=== PATIENT | male | born 1965 | race Caucasian/White ===

== ENCOUNTER 2016-10-30 15:23 | Emergency (ER) | payer MEDICARE, OTHER ==
[2016-10-30] MEDS ORDERED: LORazepam 2 MG/ML SYRINGE IM STA (16:46)
--- NOTE | 2016-10-30 16:50 | ED ---
Anxiety HPI - General Chief Complaint: Anxiety Stated Complaint: anxiety Time Seen by Provider: 10/30/16 16:36 Source: patient Mode of arrival: EMS - History of Present Illness Initial Comments: This 51-year-old white male presents complaining of anxiety. He has a long- standing history of chronic anxiety. He states that it has been worse since this morning. He states that he previously was taking Xanax. He was seen at [facility] 2 weeks ago and was prescribed some Xanax. He ran out approximately 2 days ago. He states that he does not have a primary care physician or any physician that would prescribe him Xanax but plans to find a primary care physician. He states that he was on between 68 mg of Xanax per day previously. Old records do relate that he was in here for a polysubstance overdose previously of benzodiazepines as well as narcotics. Old records show that he was previously tested positive for amphetamines as well. He apparently was here several years ago for polysubstance overdose. He denies any other medical complaints or psychiatric complaints. - Related Data Home Medications: Home Medications Medication Instructions Recorded Confirmed Buprenorphine HCl [Subutex] 8 mg SL TID 10/30/16 10/30/16 Previous Rx's Medication Instructions Recorded Ibuprofen [Motrin] 600 mg PO Q6HR PRN #20 tab 04/04/16 Allergies/Adverse Reactions: Allergies Allergy/AdvReac Type Severity Reaction Status Date / Time Fish Containing Products Allergy Unknown Verified 10/30/16 16:28 [Fish] Review of Systems ROS Statement: Those systems with pertinent positive or pertinent negative responses have been documented in the HPI. ROS Other: All systems not noted in ROS Statement are negative. Past Medical History Past Medical History: COPD Additional Past Medical History / Comment(s): compartment syndrome to left lower leg, GI upset, COPD, NEUROPATHY. per old hx 2010- closed head injury 2007 , anxiety bipolar depression schitzophrenia, recent fall-scabbed area to forehead. History of Any Multi-Drug Resistant Organisms: MRSA Date of last positivie culture/infection: ?2010 h&p MDRO Source:: no source provided Past Surgical History: Back Surgery Additional Past Surgical History / Comment(s): Surgery on Left Lower Leg for Compartment Syndrome November 2010, lt leg debridment had non healing wound/wound vac 2010- per old 2010 hx mrsa listed but no date or source.sinus sx. Past Anesthesia/Blood Transfusion Reactions: No Reported Reaction Past Psychological History: ADD/ADHD, Anxiety, Bipolar, Depression, Schizophrenia Additional Psychological History / Comment(s): pt sent from [facility]- confusion, alt mental status, not acting right, poor historian at this time. Smoking Status: Current every day smoker Past Alcohol Use History: None Reported Additional Past Alcohol Use History / Comment(s): 2 ppd x 32 years Past Drug Use History: None Reported Additional Drug Use History / Comment(s): Percocet and Xanax also per old 2010 h&p used heroin, ecstacy, amphetamines, benzodiazepines - Past Family History Father Family Medical History: Myocardial Infarction ([place]) Additional Family Medical History / Comment(s): ETOH abuse, Cardiac Arrest at the age of 60 withdrawing from ETOH Mother Family Medical History: Congestive Heart Failure (CHF), Hypertension Additional Family Medical History / Comment(s): Breast Cancer that spread to the lymph nodes General Exam - General Exam Comments Initial Comments: GENERAL: The patient is well nourished and well hydrated. VITAL SIGNS: Heart rate, blood pressure, respiratory rate reviewed as recorded in nurse's notes. EYES: Pupils are round and reactive. Extraocular movements are intact. No conjunctival / lid redness or swelling. ENT: No external evidence of injury, swelling, or ecchymosis. Airway is patent. Throat is clear. NECK: Nontender. No swelling or evidence of injury. No subcutaneous emphysema. Trachea is midline. No thyroid mass. HEART: Regular rate and rhythm. Good peripheral pulses. LUNGS/CHEST: Breath sounds clear and equal bilaterally. No rales, rhonchi, or wheezes. No ecchymosis, subcutaneous emphysema, or tenderness. ABDOMEN: Abdomen soft without tenderness. No palpable masses or organomegaly. No peritoneal signs. No abdominal wall swelling or ecchymosis. EXTREMITIES: No extremity tenderness. Normal muscle tone and function. No thoracolumbar tenderness. NEUROLOGIC: Sensation is grossly intact. Cranial nerve exam reveals face is symmetrical, tongue is midline, speech is clear. SKIN: No abrasions or ecchymosis is noted. No induration or masses noted. PSYCHIATRIC: Alert and oriented. Appropriate behavior and judgment. Appears mildly anxious. Limitations: no limitations Course Vital Signs 10/30/16 15:40 Temperature 98.1 F Pulse Rate 96 Respiratory 18 Rate Blood Pressure 141/86 O2 Sat by Pulse 96 Oximetry Medical Decision Making - Medical Decision Making The patient was seen and examined. He receives 1 mg of Ativan IM. It is felt as though he is stable for discharge. It is emphasized that he follow-up with a primary care physician for further evaluation and treatment of his anxiety. He understands and leaves in no distress. Disposition Clinical Impression: Acute anxiety, Chronic anxiety Disposition: HOME SELF-CARE Condition: Good Instructions: Generalized Anxiety Disorder (ED) Referrals: None,Stated [Primary Care Provider] - 1-2 days Time of Disposition: 16:50
[2016-10-30 17:18] VITALS: BP 134/77; PULSE 76; RESP 20; TEMP 97
== END 2016-10-30 17:20 | disposition home or self-care (01) ==
LOC: EC 15:23
DX: F41.9 Anxiety disorder, unspecified (principal); F17.200 Nicotine dependence, unspecified, uncomplicated; Z91.013 Allergy to seafood; Z79.899 Other long term (current) drug therapy
CPT/HCPCS: 96372 ×2; 99284 ×2; J2060

== ENCOUNTER → 2017-09-14 | Outpatient (CLI) | payer MEDICARE, OTHER ==
--- NOTE | 2017-09-19 15:20 | P.ARTDOP ---
Arterial Doppler LOWER EXTREMITY ARTERIAL DOPPLER: DATE OF SERVICE: 09/14/2017 Reason for study: Bilateral claudication. Doppler waveforms: Multiphasic bilaterally throughout. Pulse volume recording: Some distal blunting especially on the right.. Pressure gradients: None. Ankle-brachial indices: Greater than 1 bilaterally. Toe pressures: [] on the right, [] on the left Impression: Arterial Doppler is normal proximally.
== END | disposition home or self-care (01) ==
LOC: RADUSWWP 11:37
PROVIDERS: ATTEND Family Medicine
DX: I73.9 Peripheral vascular disease, unspecified (principal)
CPT/HCPCS: 93923

== ENCOUNTER 2018-03-30 06:20 | Emergency (ER) | payer MEDICARE ==
[2018-03-30 06:26] VITALS: BP 142/89; PULSE 94; RESP 20; TEMP 98
[2018-03-30] MEDS ORDERED: LORazepam 1 MG TAB PO STA (06:40)
--- NOTE | 2018-03-30 06:41 | ED ---
General Adult HPI - General Chief complaint: Anxiety Stated complaint: Anxiety Time Seen by Provider: 03/30/18 06:36 Source: patient Mode of arrival: ambulatory Limitations: no limitations - History of Present Illness Initial comments: 53-year-old male presents today complaining of anxiety for 2 days duration. Patient reports that he has a history of anxiety of the past and has been evaluated in the emergency department due to delirium secondary to sleep deprivation after becoming very anxious. Patient ports that his anxiety has only ever been treated in the emergency department, with by mouth and IM Ativan. He has never had home medications for anxiety though he does have a history of bipolar and schizophrenia. Patient cannot identify any acute stressors which caused this acute anxiety. He does note that he currently does not have a primary care physician or pain management doctor and he does suffer from chronic pain in his left lower surety secondary to previous compartment syndrome with nerve injury Patient denies any chest pain, palpitations, shortness of breath, lightheadedness, diaphoresis. He denies any nausea, vomiting, abdominal pain or change in bowel or bladder habits. He reports he's been able to eat and drink. Patient reports that he feels very anxious and can't fall asleep at night. He reports that he did not sleep on night or Sunday night and after being awake all night on Sunday night he decided to take a cab to the emergency department for evaluation. Patient denies any suicidal or homicidal ideations. He denies any thoughts of self-harm. He denies any or hearing voices or seeing things others can't hear see. Been able to attend to his activities of daily living, he is clean and well kept. - Related Data Previous Rx's Medication Instructions Recorded ARIPiprazole [Abilify] 15 mg PO DAILY #7 tablet 03/30/18 Allergies Allergy/AdvReac Type Severity Reaction Status Date / Time Fish Containing Products Allergy Unknown Verified 10/30/16 16:28 [Fish] Review of Systems ROS Statement: Those systems with pertinent positive or pertinent negative responses have been documented in the HPI. ROS Other: All systems not noted in ROS Statement are negative. Past Medical History Past Medical History: COPD Additional Past Medical History / Comment(s): compartment syndrome to left lower leg, GI upset, COPD, NEUROPATHY. per old hx 2010- closed head injury 2006 , anxiety bipolar depression schitzophrenia, recent fall-scabbed area to forehead. History of Any Multi-Drug Resistant Organisms: MRSA Date of last positivie culture/infection: ?2010 h&p MDRO Source:: no source provided Past Surgical History: Back Surgery Additional Past Surgical History / Comment(s): Surgery on Left Lower Leg for Compartment Syndrome November 2010, lt leg debridment had non healing wound/wound vac 2010- per old 2010 hx mrsa listed but no date or source.sinus sx. Past Anesthesia/Blood Transfusion Reactions: No Reported Reaction Past Psychological History: ADD/ADHD, Anxiety, Bipolar, Depression, Schizophrenia Smoking Status: Current every day smoker Past Alcohol Use History: None Reported Past Drug Use History: None Reported - Past Family History Father Family Medical History: Myocardial Infarction ([place]) Additional Family Medical History / Comment(s): ETOH abuse, Cardiac Arrest at the age of 60 withdrawing from ETOH Mother Family Medical History: Congestive Heart Failure (CHF), Hypertension Additional Family Medical History / Comment(s): Breast Cancer that spread to the lymph nodes General Exam Limitations: no limitations General appearance: alert, anxious Head exam: Present: atraumatic, other (Well-healed right parietal scalp scar, no acute injuries) Eye exam: Present: normal appearance, PERRL ENT exam: Present: normal exam, mucous membranes moist Neck exam: Present: normal inspection Respiratory exam: Absent: respiratory distress, wheezes Cardiovascular Exam: Present: regular rate, normal rhythm, normal heart sounds. Absent: systolic murmur, diastolic murmur GI/Abdominal exam: Present: soft. Absent: distended Rectal exam: Present: deferred Extremities exam: Present: full ROM, other (Left lower extremity with well- healed surgical scars consistent with history of compartment syndrome). Absent : pedal edema Back exam: Present: full ROM Neurological exam: Present: alert, oriented X3, normal gait Psychiatric exam: Present: anxious. Absent: depressed, agitated, manic, homicidal ideation, suicidal ideation Skin exam: Present: warm, dry, intact Course Vital Signs 03/30/18 06:22 Temperature 98.0 F Pulse Rate 94 Respiratory 20 Rate Blood Pressure 142/89 O2 Sat by Pulse 97 Oximetry Medical Decision Making - Medical Decision Making The patient was seen and evaluated, patient has a complicated psychiatric history including diagnosis of bipolar and schizophrenia. At this time the patient reports feeling very anxious. The patient's not manic, not depressed not suicidal, homicidal not having an delusions. The patient appears well kept and is eating and drinking well. At this time I don't feel there is any indication for formal psychiatric evaluation. Patient has no chest pain, palpitations, shortness of breath, diaphoresis or complaints of abdominal pain. Will treat the patient with by mouth Ativan Patient reports improvement after oral Ativan. Is agreeable to plan for discharge home. Was given a referral for pain management as well as primary care. Patient has established relationship with [facility]. Disposition Clinical Impression: Acute anxiety Disposition: HOME SELF-CARE Condition: Good Instructions: Generalized Anxiety Disorder (ED) Is patient prescribed a controlled substance at d/c from ED?: No Referrals: Henry Sutton MD [REFERRING] - 1-2 days None,Stated [Primary Care Provider] - 1-2 days uJan Gaitan MD [STAFF PHYSICIAN] - 1-2 days Time of Disposition: 07:02
== END 2018-03-30 07:40 | disposition home or self-care (01) ==
LOC: EC 06:20 → SUPCPDRO 06:20 → EC 07:40
DX: F41.9 Anxiety disorder, unspecified (principal); G89.29 Other chronic pain; M79.605 Pain in left leg; F17.200 Nicotine dependence, unspecified, uncomplicated; Z91.013 Allergy to seafood; Z86.14 Personal history of Methicillin resistant Staphylococcus aureus infection; Z98.890 Other specified postprocedural states
CPT/HCPCS: 99283

== ENCOUNTER 2018-03-30 13:14 | Emergency (ER) | payer MEDICARE ==
--- NOTE | 2018-03-30 14:13 | ED ---
General Adult HPI - General Chief complaint: Anxiety Stated complaint: anxiety Time Seen by Provider: 03/30/18 13:49 Source: patient, RN notes reviewed, old records reviewed Mode of arrival: ambulatory Limitations: no limitations - History of Present Illness Initial comments: Patient is a 53-year-old male presented to the emergency room today with a chief complaint of increased anxiety. Patient does admit that he was on anxiety medication in the past currently not on any meds. Was seen here earlier this morning was given Ativan. Patient is back with his therapist from [facility]. Patient states having increased anxiety. He states that he is worried because he lost his house [place]. He states that he is having thoughts of somebody that "up and disappeared". He worried that this could happened to him. Patient denies any suicidal or homicidal thoughts or plans. Denies any other complaints currently. - Related Data Previous Rx's Medication Instructions Recorded ARIPiprazole [Abilify] 15 mg PO DAILY #7 tablet 03/30/18 Allergies Allergy/AdvReac Type Severity Reaction Status Date / Time Fish Containing Products Allergy Unknown Verified 10/30/16 16:28 [Fish] Review of Systems ROS Statement: Those systems with pertinent positive or pertinent negative responses have been documented in the HPI. ROS Other: All systems not noted in ROS Statement are negative. Past Medical History Past Medical History: COPD Additional Past Medical History / Comment(s): compartment syndrome to left lower leg, GI upset, COPD, NEUROPATHY. per old hx 2010- closed head injury 2006 , anxiety bipolar depression schitzophrenia, recent fall-scabbed area to forehead. History of Any Multi-Drug Resistant Organisms: MRSA Date of last positivie culture/infection: ?2010 h&p MDRO Source:: no source provided Past Surgical History: Back Surgery Additional Past Surgical History / Comment(s): Surgery on Left Lower Leg for Compartment Syndrome November 2010, lt leg debridment had non healing wound/wound vac 2010- per old 2010 hx mrsa listed but no date or source.sinus sx. Past Anesthesia/Blood Transfusion Reactions: No Reported Reaction Past Psychological History: ADD/ADHD, Anxiety, Bipolar, Depression, Schizophrenia Smoking Status: Current every day smoker Past Alcohol Use History: None Reported Past Drug Use History: None Reported - Past Family History Father Family Medical History: Myocardial Infarction ([place]) Additional Family Medical History / Comment(s): ETOH abuse, Cardiac Arrest at the age of 60 withdrawing from ETOH Mother Family Medical History: Congestive Heart Failure (CHF), Hypertension Additional Family Medical History / Comment(s): Breast Cancer that spread to the lymph nodes General Exam - General Exam Comments Initial Comments: General: The patient is awake and alert, in no distress, and does not appear acutely ill. Eye: Pupils are equal, round and reactive to light, extra-ocular movements are intact. No nystagmus. There is normal conjunctiva bilaterally. No signs of icterus. Ears, nose, mouth and throat: There are moist mucous membranes and no oral lesions. Neck: The neck is supple, there is no tenderness or JVD. Cardiovascular: There is a regular rate and rhythm. No murmur, rub or gallop is appreciated. Respiratory: Lungs are clear to auscultation, respirations are non-labored, breath sounds are equal. No wheezes, stridor, rales, or rhonchi. Musculoskeletal: Normal ROM, no tenderness. Neurological: A&O x 3. CN II-XII intact, There are no obvious motor or sensory deficits. Coordination appears grossly intact. Speech is normal. Skin: Skin is warm and dry and no rashes or lesions are noted. Psychiatric: Cooperative, Limitations: no limitations Course Vital Signs 03/30/18 13:35 Temperature 98.4 F Pulse Rate 90 Respiratory 18 Rate Blood Pressure 124/85 O2 Sat by Pulse 94 L Oximetry Medical Decision Making - Medical Decision Making 53-year-old male presenting for psychiatric evaluation. Patient denies any suicidal or homicidal thoughts or plans. Was brought in by his poker dealer today for psych eval. Patient does admit that he's been more anxious. He admits that he's been having some paranoia. Patient denies any physical complaints. Patient was seen here in the emergency room by mental health. The recommendation that patient may be discharged home. They recommend starting him back on Abilify 15 mg daily. They recommended giving him Ativan 1 mg by mouth here once in the ER. Patient is agreeable to taking this medication. Will be given a prescription for one week. Advised following up with the [facility] for further prescriptions and evaluation. Disposition Clinical Impression: Acute anxiety Disposition: HOME SELF-CARE Condition: Good Instructions: Generalized Anxiety Disorder (ED) Additional Instructions: Please use medication as prescribed. Please follow-up with community mental health as discussed. Please return to emergency room for any other concerns. Prescriptions: ARIPiprazole [Abilify] 15 mg PO DAILY #7 tablet Is patient prescribed a controlled substance at d/c from ED?: No Referrals: None,Stated [Primary Care Provider] - 1-2 days Time of Disposition: 15:30
[2018-03-30] MEDS ORDERED: LORazepam 1 MG TAB PO STA (15:27)
[2018-03-30] MEDS ORDERED: ARIPiprazole 15 MG TAB PO STA (15:27)
[2018-03-30 15:51] LABS: Amphetamine Screen,Urine Not Detected (NotDetected); Barbiturate Screen,Urine Not Detected (NotDetected); Benzodiazepines Screen,Urine Detected (NotDetected); Cocaine Screen,Urine Not Detected (NotDetected); Methadone Screen, Urine Not Detected (NotDetected); Opiate Screen,Urine Not Detected (NotDetected); Oxycodone Screen, Urine Not Detected (NotDetected); Phencyclidine Screen,Urine Not Detected (NotDetected); Tricyclic Antidepressant,Urine Detected (NotDetected); Urn Cannabinoid Scrn Not Detected (NotDetected)
[2018-03-30 16:07] VITALS: BP 128/70; PULSE 78; RESP 16; TEMP 97.8
== END 2018-03-30 16:04 | disposition home or self-care (01) ==
LOC: EC 13:14
DX: F41.9 Anxiety disorder, unspecified (principal); F22 Delusional disorders; F25.0 Schizoaffective disorder, bipolar type; F31.9 Bipolar disorder, unspecified; F17.200 Nicotine dependence, unspecified, uncomplicated; Z86.14 Personal history of Methicillin resistant Staphylococcus aureus infection; Z91.013 Allergy to seafood
CPT/HCPCS: 80306; 82075; 99283; 99284

== ENCOUNTER 2019-04-27 20:01 | Emergency (ER) | payer MEDICARE ==
[2019-04-27 20:07] VITALS: RESP 18; TEMP 98.1
[2019-04-27] MEDS ORDERED: LORazepam 1 MG TAB PO STA (20:34)
--- NOTE | 2019-04-27 20:35 | ED ---
General Adult HPI - General Chief complaint: Anxiety Stated complaint: Anxiety Time Seen by Provider: 04/27/19 20:09 Source: patient Mode of arrival: ambulatory Limitations: no limitations - History of Present Illness Initial comments: 54-year-old male patient with past medical history significant for anxiety presents to the emergency department today for evaluation of increased anxiety over the last couple of days. Patient states that he heard there was a squatter living in apartment below him and he became very nervous. Patient states he is unable to sleep for 2 days. States he is constantly pacing. He does report that he is able to eat, drink, and care for himself. He denies taking any medications currently for symptoms. States the past when his anxiety out of control like this when he had come to the emergency department received Ativan. States this usually does help. He denies any suicidal or homicidal ideation. Denies alcohol worse illicit street drug use. Denies any other physical symptoms or concerns. Patient denies any recent rash, fever, chills, shortness breath, chest pain, abdominal pain, nausea, vomiting, diarrhea, constipation, back pain, numbness, tingling, dizziness, weakness, hematuria, dysuria, urinary urgency, urinary frequency, headache, visual changes, or any other complaints. - Related Data Home Medications Medication Instructions Recorded Confirmed ARIPiprazole [Abilify] 10 mg PO DAILY 04/27/19 04/27/19 Baclofen [Lioresal] 10 mg PO TID PRN 04/27/19 04/27/19 Buprenorphine HCl [Subutex] 8 mg SL TID 04/27/19 04/27/19 Doxepin HCl [SINEquan] 150 mg PO HS 04/27/19 04/27/19 Gabapentin 600 mg PO TID 04/27/19 04/27/19 busPIRone HCl [Buspar] 10 mg PO BID 04/27/19 04/27/19 Allergies Allergy/AdvReac Type Severity Reaction Status Date / Time Fish Containing Products Allergy Unknown Verified 04/27/19 20:43 [Fish] Review of Systems ROS Statement: Those systems with pertinent positive or pertinent negative responses have been documented in the HPI. ROS Other: All systems not noted in ROS Statement are negative. Past Medical History Past Medical History: COPD Additional Past Medical History / Comment(s): compartment syndrome to left lower leg, GI upset, COPD, NEUROPATHY. per old hx 2010- closed head injury 2007, anxiety bipolar depression schitzophrenia, recent fall-scabbed area to forehead. History of Any Multi-Drug Resistant Organisms: MRSA Date of last positivie culture/infection: ?2010 h&p MDRO Source:: no source provided Past Surgical History: Back Surgery Additional Past Surgical History / Comment(s): Surgery on Left Lower Leg for Compartment Syndrome November 2010, lt leg debridment had non healing wound/wound vac 2010- per old 2010 hx mrsa listed but no date or source.sinus sx. Past Anesthesia/Blood Transfusion Reactions: No Reported Reaction Past Psychological History: ADD/ADHD, Anxiety, Bipolar, Depression, Schizophrenia Smoking Status: Current every day smoker Past Alcohol Use History: None Reported Past Drug Use History: None Reported - Past Family History Father Family Medical History: Myocardial Infarction ([place]) Additional Family Medical History / Comment(s): ETOH abuse, Cardiac Arrest at the age of 60 withdrawing from ETOH Mother Family Medical History: Congestive Heart Failure (CHF), Hypertension Additional Family Medical History / Comment(s): Breast Cancer that spread to the lymph nodes General Exam Limitations: no limitations General appearance: alert, in no apparent distress, other (This is a well- developed, well-nourished adult male patient in no acute distress. Vital signs upon presentation are temperature 98.1F, pulse 112, respirations 18, blood pressure 167/95, pulse ox 98% on room air.) Eye exam: Present: normal appearance, PERRL, EOMI. Absent: scleral icterus, conjunctival injection, periorbital swelling ENT exam: Present: normal exam, normal oropharynx, mucous membranes moist Respiratory exam: Present: normal lung sounds bilaterally. Absent: respiratory distress, wheezes, rales, rhonchi, stridor Cardiovascular Exam: Present: regular rate, normal rhythm, normal heart sounds. Absent: systolic murmur, diastolic murmur, rubs, gallop, clicks GI/Abdominal exam: Present: soft, normal bowel sounds. Absent: distended, tenderness, guarding, rebound, rigid Neurological exam: Present: alert, oriented X3, CN II-XII intact Psychiatric exam: Present: anxious. Absent: homicidal ideation, suicidal ideation Skin exam: Present: warm, dry, intact, normal color. Absent: rash Course Vital Signs 04/27/19 20:04 Temperature 98.1 F Pulse Rate 112 H Respiratory 18 Rate Blood Pressure 167/95 O2 Sat by Pulse 98 Oximetry Medical Decision Making - Medical Decision Making 54-year-old male patient presents to the emergency department today for evaluation of increased anxiety. Patient denies suicidal or homicidal ideation. Denies any physical symptoms or concerns. Physical examination is unremarkable. He'll be given a dose of Ativan here in the emergency department. Discharged to follow-up with his primary care physician and outpatient counseling. Return parameters are discussed in detail. He verbalizes understanding and agrees with this plan. Disposition Clinical Impression: Anxiety Disposition: HOME SELF-CARE Instructions (If sedation given, give patient instructions): Generalized Anxiety Disorder (ED) Additional Instructions: Follow-up with a counselor or CM for further evaluation. Follow-up with your primary care physician for recheck in 1-2 days. Return to the emergency department immediately if symptoms worsen, change, oriented any new symptoms. Is patient prescribed a controlled substance at d/c from ED?: No Referrals: None,Stated [Primary Care Provider] - 1-2 days Time of Disposition: 20:35
[2019-04-27 21:24] VITALS: BP 138/90; PULSE 104
== END 2019-04-27 21:49 | disposition home or self-care (01) ==
LOC: EC 20:01
DX: F41.9 Anxiety disorder, unspecified (principal); G62.9 Polyneuropathy, unspecified; F31.9 Bipolar disorder, unspecified; F20.9 Schizophrenia, unspecified; F17.200 Nicotine dependence, unspecified, uncomplicated; Z91.013 Allergy to seafood; Z79.899 Other long term (current) drug therapy; Z86.14 Personal history of Methicillin resistant Staphylococcus aureus infection
CPT/HCPCS: 99283

== ENCOUNTER 2019-04-29 01:33 | Emergency (ER) | payer MEDICARE ==
--- NOTE | 2019-04-29 01:50 | ED ---
General Adult HPI - General Chief complaint: Anxiety Stated complaint: anxiety Time Seen by Provider: 04/29/19 01:50 Source: patient Mode of arrival: ambulatory Limitations: no limitations - History of Present Illness Initial comments: Darryl 54-year-old gentleman with a history of anxiety who presents the emergency department today for evaluation of anxiety attack. Patient reports he's been feeling very anxious recently he was seen and evaluated possibly a string given by mouth Ativan which resolved his symptoms. Patient reports that he is again feeling very anxious today. He does plan to follow up outpatient for psychiatric care, however he does not want to be on any long-term medications and would like a prescription for Ativan. - Related Data Home Medications Medication Instructions Recorded Confirmed ARIPiprazole [Abilify] 10 mg PO DAILY 04/27/19 04/27/19 Baclofen [Lioresal] 10 mg PO TID PRN 04/27/19 04/27/19 Buprenorphine HCl [Subutex] 8 mg SL TID 04/27/19 04/27/19 Doxepin HCl [SINEquan] 150 mg PO HS 04/27/19 04/27/19 Gabapentin 600 mg PO TID 04/27/19 04/27/19 busPIRone HCl [Buspar] 10 mg PO BID 04/27/19 04/27/19 Allergies Allergy/AdvReac Type Severity Reaction Status Date / Time Fish Containing Products Allergy Unknown Verified 04/27/19 20:43 [Fish] Review of Systems ROS Statement: Those systems with pertinent positive or pertinent negative responses have been documented in the HPI. ROS Other: All systems not noted in ROS Statement are negative. Past Medical History Past Medical History: COPD Additional Past Medical History / Comment(s): compartment syndrome to left lower leg, GI upset, COPD, NEUROPATHY. per old hx 2010- closed head injury 2006, anxiety bipolar depression schitzophrenia, recent fall-scabbed area to forehead. History of Any Multi-Drug Resistant Organisms: MRSA Date of last positivie culture/infection: ?2010 h&p MDRO Source:: no source provided Past Surgical History: Back Surgery Additional Past Surgical History / Comment(s): Surgery on Left Lower Leg for Compartment Syndrome November 2010, lt leg debridment had non healing wound/wound vac 2010- per old 2010 hx mrsa listed but no date or source.sinus sx. Past Anesthesia/Blood Transfusion Reactions: No Reported Reaction Past Psychological History: ADD/ADHD, Anxiety, Bipolar, Depression, Schizophrenia Smoking Status: Current every day smoker Past Alcohol Use History: None Reported Past Drug Use History: None Reported - Past Family History Father Family Medical History: Myocardial Infarction ([place]) Additional Family Medical History / Comment(s): ETOH abuse, Cardiac Arrest at the age of 60 withdrawing from ETOH Mother Family Medical History: Congestive Heart Failure (CHF), Hypertension Additional Family Medical History / Comment(s): Breast Cancer that spread to the lymph nodes General Exam - General Exam Comments Initial Comments: Physical Exam GENERAL: Patient is well-developed and well-nourished. Patient is nontoxic and well- hydrated and is in no distress. Smells of cigarette smoke HENT: Normocephalic, Atraumatic. EYES: PERRL, EOMI PULMONARY: Unlabored respirations. No audible rales rhonchi or wheezing was noted. CARDIOVASCULAR: There is a regular rate and rhythm without any murmurs gallops or rubs. ABDOMEN: Soft and nontender with normal bowel sounds. SKIN: Skin is clear with no lesions or rashes and otherwise unremarkable. : Deferred NEUROLOGIC: Patient is alert and oriented x3. Moving all extremities spontaneously MUSCULOSKELETAL: Normal extremities with adequate strength and full range of motion. No lower extremity swelling or edema. No calf tenderness. PSYCHIATRIC: Normal psychiatric evaluation. Limitations: no limitations Course Vital Signs 04/29/19 04/29/19 01:46 02:43 Temperature 98.0 F 97.9 F Pulse Rate 106 H 98 Respiratory 18 17 Rate Blood Pressure 138/77 100/70 O2 Sat by Pulse 98 99 Oximetry Medical Decision Making - Medical Decision Making was seen and evaluated history is obtained from the patient. Patient received by mouth Ativan and was reevaluated reported feeling better within 10 minutes. Patient requesting a second dose of Ativan for discharge home. This will be given. She was encouraged to follow up outpatient and given resources for outpatient psychiatric care. Disposition Clinical Impression: Acute anxiety Disposition: HOME SELF-CARE Condition: Stable Instructions (If sedation given, give patient instructions): Generalized Anxiety Disorder (ED) Is patient prescribed a controlled substance at d/c from ED?: No Referrals: None,Stated [Primary Care Provider] - 1-2 days
[2019-04-29] MEDS ORDERED: LORazepam 1 MG TAB PO STA ×2 (02:05→02:22)
[2019-04-29] MEDS ORDERED: NICOTINE 14MG/24HR PATCH TRANSDERM STA (02:22)
[2019-04-29 02:45] VITALS: BP 100/70; PULSE 98; RESP 17; TEMP 97.9
== END 2019-04-29 02:44 | disposition home or self-care (01) ==
LOC: EC 01:33
DX: F41.9 Anxiety disorder, unspecified (principal); F31.9 Bipolar disorder, unspecified; F20.9 Schizophrenia, unspecified; F17.200 Nicotine dependence, unspecified, uncomplicated; Z79.899 Other long term (current) drug therapy; Z91.013 Allergy to seafood; Z87.820 Personal history of traumatic brain injury; Z86.14 Personal history of Methicillin resistant Staphylococcus aureus infection
CPT/HCPCS: 99283; S4990

== ENCOUNTER 2019-05-07 07:21 | Emergency (ER) | payer MEDICARE ==
[2019-05-07 07:28] VITALS: BP 140/92; PULSE 95; RESP 16; TEMP 98.2
--- NOTE | 2019-05-07 07:33 | ED ---
General Adult HPI - General Chief complaint: Fall Stated complaint: fall Time Seen by Provider: 05/07/19 07:31 Source: patient, EMS Mode of arrival: EMS Limitations: no limitations - History of Present Illness Initial comments: Dictation was produced using [employer]k dictation software. please excuse any grammatical, word or spelling errors. Chief Complaint: 54-year-old male presents after fall. History of Present Illness: [id number] male who presents today after fall. Patient is a history of COPD. States that his left foot got caught under table causing to fall. He did strike his head. Patient states that this happen approximately 24 hours ago. Denies any loss of consciousness. Does have a mild headache. Patient states he has some foot pain however is not worried about his foot. Patient has no other complaints at this time. He is worried about strike his head. He did note some bleeding to his right druze area. He has any neurologic deficit. The ROS documented in this emergency department record has been reviewed and confirmed by me. Those systems with pertinent positive or negative responses h ave been documented in the HPI. All other systems are other negative and/or noncontributory. PHYSICAL EXAM: General Impression: Alert and oriented x3, not in acute distress HEENT: Dried blood noted to the right temporal area, superficial laceration measuring approximately half centimeter to the right temporal area without active bleeding, No, extra-ocular movements intact, pupils equal and reactive to light bilaterally, mucous membranes moist. Cardiovascular: Heart regular rate and rhythm, S1&S2 audible, no murmurs, rubs or gallops Chest: Lungs clear to auscultation bilaterally, no rhonchi, no wheeze, no rales Abdomen: Bowel sounds present, abdomen soft, non-tender, non-distended, no organomegaly Musculoskeletal: Pulses present and equal in all extremities, no peripheral edema Motor: no focal deficits noted Neurological: CN II-XII grossly intact, no focal motor or sensory deficits noted Skin: Intact with no visualized rashes Psych: Normal affect and mood ED course: 54-year-old male presents with head pain after fall. Fall is mechanical in nature. Patient has a small laceration to the right temporal area. Superficial and it has been open for approximately 24 hours. At this point no indication for laceration repair. Upon arrival are within acceptable limits. Computed tomography scan of the brain was obtained showing no acute processes. Patient requested a nicotine patch. QT patch provided. Patient observed in emergency department for several hours with no acute processes. Patient clear for discharge. Appetite baseline. Patient told to follow-up with primary care physician. Return parameters discussed. - Related Data Home Medications Medication Instructions Recorded Confirmed ARIPiprazole [Abilify] 10 mg PO DAILY 04/27/19 05/07/19 Baclofen [Lioresal] 10 mg PO TID PRN 04/27/19 05/07/19 Buprenorphine HCl [Subutex] 8 mg SUBLINGUAL AC-TID 04/27/19 05/07/19 Doxepin HCl [SINEquan] 150 mg PO HS 04/27/19 05/07/19 Gabapentin 600 mg PO TID 04/27/19 05/07/19 busPIRone HCl [Buspar] 10 mg PO BID 04/27/19 05/07/19 Allergies Allergy/AdvReac Type Severity Reaction Status Date / Time Fish Containing Products Allergy Unknown Verified 05/07/19 07:53 [Fish] Review of Systems ROS Statement: Those systems with pertinent positive or pertinent negative responses have been documented in the HPI. ROS Other: All systems not noted in ROS Statement are negative. Past Medical History Past Medical History: COPD Additional Past Medical History / Comment(s): compartment syndrome to left lower leg, GI upset, COPD, NEUROPATHY. per old hx 2010- closed head injury 2006, anxiety bipolar depression schitzophrenia, recent fall-scabbed area to forehead. History of Any Multi-Drug Resistant Organisms: MRSA Date of last positivie culture/infection: ?2010 h&p MDRO Source:: no source provided Past Surgical History: Back Surgery Additional Past Surgical History / Comment(s): Surgery on Left Lower Leg for Compartment Syndrome November 2010, lt leg debridment had non healing wound/wound vac 2010- per old 2010 hx mrsa listed but no date or source.sinus sx. Past Anesthesia/Blood Transfusion Reactions: No Reported Reaction Past Psychological History: ADD/ADHD, Anxiety, Bipolar, Depression, Schizophrenia Smoking Status: Current every day smoker Past Alcohol Use History: None Reported Past Drug Use History: None Reported - Past Family History Father Family Medical History: Myocardial Infarction ([place]) Additional Family Medical History / Comment(s): ETOH abuse, Cardiac Arrest at the age of 60 withdrawing from ETOH Mother Family Medical History: Congestive Heart Failure (CHF), Hypertension Additional Family Medical History / Comment(s): Breast Cancer that spread to the lymph nodes General Exam Limitations: no limitations Course Vital Signs 05/07/19 07:24 Temperature 98.2 F Pulse Rate 95 Respiratory 16 Rate Blood Pressure 140/92 O2 Sat by Pulse 95 Oximetry Disposition Clinical Impression: Fall, Head contusion Disposition: HOME SELF-CARE Condition: Good Instructions (If sedation given, give patient instructions): Fall Prevention for Older Adults (ED) Is patient prescribed a controlled substance at d/c from ED?: No Referrals: Basil Srinivasan MD [Primary Care Provider] - 1-2 days Time of Disposition: 10:02
[2019-05-07] MEDS ORDERED: NICOTINE 14MG/24HR PATCH TRANSDERM STA (08:09)
--- NOTE | 2019-05-07 09:50 | CT ---
EXAMINATION TYPE: CT brain donnaine wo con DATE OF EXAM: 05/07/2019 COMPARISON: Prior CT brain dated 01/26/2015 HISTORY: Fall yesterday with Right sided injury CT DLP: 1328.4 mGycm Automated exposure control for dose reduction was used. TECHNIQUE: CT scan of the head and cervical spine are performed without contrast. FINDINGS: There is no acute intracranial hemorrhage, mass effect, or midline shift identified. Some minimal encephalomalacia of the left temporal lobe is stable. The ventricles and sulci are within no rmal limits in size. The globes are intact and the visualized sinuses are remarkable for extensive i nflammatory change involving the frontal and maxillary sinuses, ethmoid air cells, postop changes are present in the maxillary sinuses. Cervical spine is visualized in its entirety from C1 through upper thoracic levels and demonstrates s atisfactory alignment without evidence of acute fracture or dislocation. Prevertebral soft tissue ap pears within normal limits. The C1-C2 articulation is unremarkable. Upper lobes show emphysematous changes. IMPRESSION: 1. There is no acute fracture or dislocation evident in the cervical spine. 2. No acute intracranial hemorrhage, mass effect, or midline shift is seen.
== END 2019-05-07 10:26 | disposition home or self-care (01) ==
LOC: EC 07:21
DX: S01.81XA Laceration without foreign body of other part of head, initial encounter (principal); F31.9 Bipolar disorder, unspecified; F20.9 Schizophrenia, unspecified; F41.9 Anxiety disorder, unspecified; F17.200 Nicotine dependence, unspecified, uncomplicated; Z79.899 Other long term (current) drug therapy; Z91.013 Allergy to seafood; W18.09XA Striking against other object with subsequent fall, initial encounter; Y92.009 Unspecified place in unspecified non-institutional (private) residence as the place of occurrence of the external cause
CPT/HCPCS: 99284; 72125; 70450; S4990

== ENCOUNTER 2019-05-15 07:01 | Emergency (ER) | payer MEDICARE ==
[2019-05-15 07:15] VITALS: TEMP 99.4
[2019-05-15] MEDS ORDERED: LORazepam 1 MG TAB PO STA (07:32)
--- NOTE | 2019-05-15 07:37 | ED ---
General Adult HPI - General Chief complaint: Psychiatric Symptoms Stated complaint: Not Feeling Safe Time Seen by Provider: 05/15/19 07:22 Source: patient, police, RN notes reviewed, old records reviewed Mode of arrival: ambulatory Limitations: no limitations - History of Present Illness Initial comments: Patient is a 54-year-old male well-known to emergency department as of recently for anxiety attacks. He presents today with acute anxiety and panic attack. Patient reports that he called the police to help him because he did not feel safe at home with himself. Patient denies any active suicidal thoughts at this time. Patient reports his main complaint is severe anxiety. Patient reports lives an apartment by himself. Patient denies any recent fever, chills, shortness of breath, chest pain, back pain, abdominal pain, nausea vomiting, numbness or tingling, dysuria or hematuria, constipation or diarrhea, headaches or visual changes, or any other current symptoms - Related Data Home Medications Medication Instructions Recorded Confirmed ARIPiprazole [Abilify] 10 mg PO DAILY 04/27/19 05/15/19 Baclofen [Lioresal] 10 mg PO TID PRN 04/27/19 05/15/19 Buprenorphine HCl [Subutex] 8 mg SUBLINGUAL AC-TID 04/27/19 05/15/19 Doxepin HCl [SINEquan] 150 mg PO HS 04/27/19 05/15/19 Gabapentin 600 mg PO TID 04/27/19 05/15/19 busPIRone HCl [Buspar] 10 mg PO BID 04/27/19 05/15/19 Allergies Allergy/AdvReac Type Severity Reaction Status Date / Time Fish Containing Products Allergy Unknown Verified 05/15/19 07:32 [Fish] Review of Systems ROS Statement: Those systems with pertinent positive or pertinent negative responses have been documented in the HPI. ROS Other: All systems not noted in ROS Statement are negative. Past Medical History Past Medical History: COPD Additional Past Medical History / Comment(s): compartment syndrome to left lower leg, GI upset, COPD, NEUROPATHY. per old hx 2010- closed head injury 2006, anxi ety bipolar depression schitzophrenia, recent fall-scabbed area to forehead. History of Any Multi-Drug Resistant Organisms: MRSA Date of last positivie culture/infection: ?2010 h&p MDRO Source:: no source provided Past Surgical History: Back Surgery Additional Past Surgical History / Comment(s): Surgery on Left Lower Leg for Compartment Syndrome November 2010, lt leg debridment had non healing wound/wound vac 2010- per 2010 hx mrsa listed but no date or source.sinus sx. Past Anesthesia/Blood Transfusion Reactions: No Reported Reaction Past Psychological History: ADD/ADHD, Anxiety, Bipolar, Depression, Schizophrenia Smoking Status: Current every day smoker Past Alcohol Use History: None Reported Past Drug Use History: None Reported - Past Family History Father Family Medical History: Myocardial Infarction ([place]) Additional Family Medical History / Comment(s): ETOH abuse, Cardiac Arrest at the age of 60 withdrawing from ETOH Mother Family Medical History: Congestive Heart Failure (CHF), Hypertension Additional Family Medical History / Comment(s): Breast Cancer that spread to the lymph nodes General Exam - General Exam Comments Initial Comments: This is a pleasant 54-year-old male. Alert and oriented 3. Limitations: no limitations General appearance: alert, in no apparent distress Head exam: Present: atraumatic, normocephalic, normal inspection Eye exam: Present: normal appearance, PERRL, EOMI. Absent: scleral icterus, co njunctival injection, periorbital swelling ENT exam: Present: normal exam Neck exam: Present: normal inspection. Absent: tenderness, meningismus, lym phadenopathy Respiratory exam: Present: normal lung sounds bilaterally Cardiovascular Exam: Present: regular rate, normal rhythm, normal heart sounds. Absent: systolic murmur, diastolic murmur, rubs, gallop, clicks GI/Abdominal exam: Present: soft, normal bowel sounds. Absent: distended, tenderness, guarding, rebound, rigid Extremities exam: Present: normal inspection, full ROM, normal capillary refill. Absent: tenderness, pedal edema, joint swelling, calf tenderness Back exam: Present: normal inspection Neurological exam: Present: alert, oriented X3, CN II-XII intact Psychiatric exam: Present: normal affect, normal mood, manic Skin exam: Present: warm, dry, intact, normal color. Absent: rash Course Vital Signs 05/15/19 07:11 Temperature 99.4 F Pulse Rate 113 H Respiratory 17 Rate Blood Pressure 159/118 O2 Sat by Pulse 96 Oximetry Medical Decision Making - Medical Decision Making Patient is a 34-year-old male presents emergency department today for chief complaint of severe anxiety and panic attacks. He is given 1 mg of Ativan EC. Quite anxious on initial ideation. Patient was evaluated by EPS is medical clear. 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 The state that he does seek [facility] and is follow-up with him tomorrow. One dose of Ativan here. Discussed that he can further angiolytic medication prescribed from [facility]. Patient is agreeable treatment plan will comply. Return parameters were discussed. Disposition Clinical Impression: Anxiety Disposition: HOME SELF-CARE Condition: Good Instructions (If sedation given, give patient instructions): Generalized Anxiety Disorder (ED) Additional Instructions: Patient advised to follow up with [facility]. Follow-up with your psychiatrist. Return to emergency department if any alarming signs or symptoms occur. Is patient prescribed a controlled substance at d/c from ED?: No Referrals: Basil Srinivasan MD [Primary Care Provider] - 1-2 days Time of Disposition: 09:23
[2019-05-15 09:38] LABS: Amphetamine Screen,Urine Not Detected (NotDetected); Barbiturate Screen,Urine Not Detected (NotDetected); Benzodiazepines Screen,Urine Not Detected (NotDetected); Cocaine Screen,Urine Not Detected (NotDetected); Methadone Screen, Urine Not Detected (NotDetected); Opiate Screen,Urine Not Detected (NotDetected); Oxycodone Screen, Urine Not Detected (NotDetected); Phencyclidine Screen,Urine Not Detected (NotDetected); Tricyclic Antidepressant,Urine Not Detected (NotDetected); Urn Cannabinoid Scrn Not Detected (NotDetected)
[2019-05-15 09:46] VITALS: BP 175/88; PULSE 100; RESP 19
== END 2019-05-15 09:28 | disposition home or self-care (01) ==
LOC: EC 07:01
DX: F41.9 Anxiety disorder, unspecified (principal); F41.0 Panic disorder [episodic paroxysmal anxiety]; F31.9 Bipolar disorder, unspecified; F20.9 Schizophrenia, unspecified; F17.200 Nicotine dependence, unspecified, uncomplicated; Z79.899 Other long term (current) drug therapy; Z91.013 Allergy to seafood; Z87.820 Personal history of traumatic brain injury; Z86.14 Personal history of Methicillin resistant Staphylococcus aureus infection
CPT/HCPCS: 80306; 82075; 99284

== ENCOUNTER 2019-05-16 16:13 | Inpatient (IN) | payer MEDICARE, OTHER ==
[~2019-05-16 16:13] MED LIST: MIDAZOLAM 1 MG/ML 5 ML VIAL ONE; PROPOFOL 10 MG/ML 20 ML VIAL IV ONE; ROCURONIUM BROMIDE 10 MG/ML 10 ML VIAL IV ONE; SUCCINYLCHOLINE CHLORIDE VIAL 200 MG/10 ML VIAL IV ONE
[2019-05-16] MEDS ORDERED: SODIUM CHLORIDE 0.9% 500 ML 500 ML IV STA ×2 (18:18→19:33)
[2019-05-16] MEDS ORDERED: SODIUM CHLORIDE 0.9% 1,000 ML IV STA ×2 (18:18→19:33)
[2019-05-16] MEDS ORDERED: ACETAMINOPHEN TAB 500 MG TAB PO STA (18:18)
--- NOTE | 2019-05-16 18:18 | ED ---
Fever HPI - General Chief Complaint: Psychiatric Symptoms Stated Complaint: mental health Time Seen by Provider: 05/16/19 16:22 Source: EMS, RN notes reviewed, old records reviewed Mode of arrival: EMS Limitations: altered mental status - History of Present Illness Initial Comments: This is a 4-year-old male the ER for evaluation. Patient does say for evaluation of psychiatric illness and fever. Patient is a poor strain unable to give history. Refusing to give history currently. This patient does become improved as far as he is feeling does state that he believes she is withdrawing from benzodiazepines admits to some depression and suicidal thoughts, she admits to homelessness increased cough and congestion. Patient also states he feels feverish sweaty and chills MD Complaint: fever, other (suicidal) -: days(s) Temperature Source: oral Context: sick contacts Associated Symptoms: myalgias Treatments Prior to Arrival: none - Related Data Home Medications Medication Instructions Recorded Confirmed ARIPiprazole [Abilify] 10 mg PO DAILY 04/27/19 05/16/19 Buprenorphine HCl [Subutex] 8 mg SUBLINGUAL AC-TID 04/27/19 05/16/19 Doxepin HCl [SINEquan] 150 mg PO HS 04/27/19 05/16/19 Gabapentin 600 mg PO TID 04/27/19 05/16/19 busPIRone HCl [Buspar] 10 mg PO BID 04/27/19 05/16/19 Baclofen [Lioresal] 20 mg PO Q6H PRN 05/16/19 05/16/19 Allergies Allergy/AdvReac Type Severity Reaction Status Date / Time Fish Containing Products Allergy Unknown Verified 05/16/19 16:41 [Fish] ibuprofen [From Motrin] Allergy Unknown Verified 05/16/19 16:41 Review of Systems ROS Statement: Those systems with pertinent positive or pertinent negative responses have been documented in the HPI. ROS Other: All systems not noted in ROS Statement are negative. Past Medical History Past Medical History: COPD Additional Past Medical History / Comment(s): compartment syndrome to left lower leg, GI upset, COPD, NEUROPATHY. per old hx 2010- closed head injury 2006, anxiety bipolar depression schitzophrenia, recent fall-scabbed area to forehead. History of Any Multi-Drug Resistant Organisms: MRSA Date of last positivie culture/infection: ?2010 h&p MDRO Source:: no source provided Past Surgical History: Back Surgery Additional Past Surgical History / Comment(s): Surgery on Left Lower Leg for Compartment Syndrome November 2010, lt leg debridment had non healing wound/wound vac 2010- per 2010 hx mrsa listed but no date or source.sinus sx. Past Anesthesia/Blood Transfusion Reactions: No Reported Reaction Past Psychological History: ADD/ADHD, Anxiety, Bipolar, Depression, Schizophrenia Smoking Status: Current every day smoker Past Alcohol Use History: None Reported Past Drug Use History: None Reported - Past Family History Father Family Medical History: Myocardial Infarction ([place]) Additional Family Medical History / Comment(s): ETOH abuse, Cardiac Arrest at the age of 60 withdrawing from ETOH Mother Family Medical History: Congestive Heart Failure (CHF), Hypertension Additional Family Medical History / Comment(s): Breast Cancer that spread to the lymph nodes General Exam Limitations: altered mental status General appearance: alert, in no apparent distress Head exam: Present: atraumatic, normocephalic, normal inspection Eye exam: Present: normal appearance, PERRL, EOMI. Absent: scleral icterus, conjunctival injection, periorbital swelling ENT exam: Present: normal exam, mucous membranes moist Neck exam: Present: normal inspection. Absent: tenderness, meningismus, lymphadenopathy Respiratory exam: Present: rhonchi, decreased breath sounds, prolonged expiratory. Absent: respiratory distress, wheezes, rales, stridor Cardiovascular Exam: Present: normal rhythm, tachycardia, normal heart sounds. Absent: systolic murmur, diastolic murmur, rubs, gallop, clicks GI/Abdominal exam: Present: soft, normal bowel sounds. Absent: distended, te nderness, guarding, rebound, rigid Extremities exam: Present: normal inspection, full ROM, normal capillary refill. Absent: tenderness, pedal edema, joint swelling, calf tenderness Back exam: Present: normal inspection Neurological exam: Present: alert, oriented X3, CN II-XII intact Psychiatric exam: Present: normal affect, normal mood Skin exam: Present: warm, dry, intact, normal color. Absent: rash Course Vital Signs 05/16/19 05/16/19 05/16/19 16:20 17:05 18:28 Temperature 101.1 F H 100.1 F H Pulse Rate 101 H 108 H Respiratory 18 18 18 Rate Blood Pressure 110/65 111/72 O2 Sat by Pulse 90 L 95 Oximetry 05/16/19 05/16/19 18:29 18:38 Temperature Pulse Rate 104 H 100 Respiratory Rate Blood Pressure O2 Sat by Pulse Oximetry - Reevaluation(s) Reevaluation #1: 05/16/19 18:18 Medical record is reviewed Reevaluation #2: 05/16/19 19:32 Patient is improvement with breathing treatments, fever control Medical Decision Making - Medical Decision Making 54 male the ER for evaluation will admit for pneumonia and significant pleural effusion. Patient also has psychiatric evaluation - Lab Data Result diagrams: 05/16/19 18:43 05/16/19 18:43 Lab Results 05/16/19 05/16/19 05/16/19 Range/Units 18:43 18:43 18:43 WBC 28.5 H (3.8-10.6) k/uL RBC 3.89 L (4.30-5.90) m/uL Hgb 12.1 L (13.0-17.5) gm/dL Hct 35.4 L (39.0-53.0) % MCV 91.0 (80.0-100.0) fL MCH 31.1 (25.0-35.0) pg MCHC 34.2 (31.0-37.0) g/dL RDW 13.7 (11.5-15.5) % Plt Count 281 (150-450) k/uL Neutrophils % 88 % Lymphocytes % 2 % Monocytes % 7 % Eosinophils % 1 % Basophils % 1 % Neutrophils # 25.1 H (1.3-7.7) k/uL Lymphocytes # 0.5 L (1.0-4.8) k/uL Monocytes # 2.0 H (0-1.0) k/uL Eosinophils # 0.3 (0-0.7) k/uL Basophils # 0.2 (0-0.2) k/uL Sodium 127 L (137-145) mmol/L Potassium 4.1 (3.5-5.1) mmol/L Chloride 92 L (98-107) mmol/L Carbon Dioxide 25 (22-30) mmol/L Anion Gap 10 mmol/L BUN 38 H (9-20) mg/dL Creatinine 0.81 (0.66-1.25) mg/dL Est GFR (CKD-EPI)AfAm >90 (>60 ml/min/1.73 sqM) Est GFR (CKD-EPI)NonAf >90 (>60 ml/min/1.73 sqM) Glucose 117 H (74-99) mg/dL Plasma Lactic Acid Jared (0.7-2.0) mmol/L Calcium 9.0 (8.4-10.2) mg/dL Total Bilirubin 1.0 (0.2-1.3) mg/dL AST 36 (17-59) U/L ALT 33 (21-72) U/L Alkaline Phosphatase 71 (38-126) U/L Total Protein 6.4 (6.3-8.2) g/dL Albumin 3.0 L (3.5-5.0) g/dL Urine Color Urine Appearance (Clear) Urine pH (5.0-8.0) Ur Specific Jessie (1.001-1.035) Urine Protein (Negative) Urine Glucose (UA) (Negative) Urine Ketones (Negative) Urine Blood (Negative) Urine Nitrite (Negative) Urine Bilirubin (Negative) Urine Urobilinogen (<2.0) mg/dL Ur Leukocyte Esterase (Negative) Urine RBC (0-5) /hpf Urine WBC (0-5) /hpf Ur Squamous Epith Cells (0-4) /hpf Hyaline Casts (0-2) /lpf Urine Mucus (None) /hpf Salicylates <1.0 mg/dL Urine Opiates Screen (NotDetected) Ur Oxycodone Screen (NotDetected) Urine Methadone Screen (NotDetected) Ur Propoxyphene Screen (NotDetected) Acetaminophen <10.0 ug/mL Ur Barbiturates Screen (NotDetected) U Tricyclic Antidepress (NotDetected) Ur Phencyclidine Scrn (NotDetected) Ur Amphetamines Screen (NotDetected) U Methamphetamines Scrn (NotDetected) U Benzodiazepines Scrn (NotDetected) Urine Cocaine Screen (NotDetected) U Marijuana (THC) Screen (NotDetected) Serum Alcohol <10 mg/dL Influenza Type A RNA Not Detected (Not Detectd) Influenza Type B (PCR) Not Detected (Not Detectd) 05/16/19 05/16/19 Range/Units 18:43 18:43 WBC (3.8-10.6) k/uL RBC (4.30-5.90) m/uL Hgb (13.0-17.5) gm/dL Hct (39.0-53.0) % MCV (80.0-100.0) fL MCH (25.0-35.0) pg MCHC (31.0-37.0) g/dL RDW (11.5-15.5) % Plt Count (150-450) k/uL Neutrophils % % Lymphocytes % % Monocytes % % Eosinophils % % Basophils % % Neutrophils # (1.3-7.7) k/uL Lymphocytes # (1.0-4.8) k/uL Monocytes # (0-1.0) k/uL Eosinophils # (0-0.7) k/uL Basophils # (0-0.2) k/uL Sodium (137-145) mmol/L Potassium (3.5-5.1) mmol/L Chloride (98-107) mmol/L Carbon Dioxide (22-30) mmol/L Anion Gap mmol/L BUN (9-20) mg/dL Creatinine (0.66-1.25) mg/dL Est GFR (CKD-EPI)AfAm (>60 ml/min/1.73 sqM) Est GFR (CKD-EPI)NonAf (>60 ml/min/1.73 sqM) Glucose (74-99) mg/dL Plasma Lactic Acid Jared 1.1 (0.7-2.0) mmol/L Calcium (8.4-10.2) mg/dL Total Bilirubin (0.2-1.3) mg/dL AST (17-59) U/L ALT (21-72) U/L Alkaline Phosphatase (38-126) U/L Total Protein (6.3-8.2) g/dL Albumin (3.5-5.0) g/dL Urine Color Yellow Urine Appearance Cloudy (Clear) Urine pH 5.5 (5.0-8.0) Ur Specific Jessie 1.021 (1.001-1.035) Urine Protein 1+ H (Negative) Urine Glucose (UA) Negative (Negative) Urine Ketones Trace H (Negative) Urine Blood Small H (Negative) Urine Nitrite Negative (Negative) Urine Bilirubin Negative (Negative) Urine Urobilinogen 2.0 (<2.0) mg/dL Ur Leukocyte Esterase Negative (Negative) Urine RBC 2 (0-5) /hpf Urine WBC 1 (0-5) /hpf Ur Squamous Epith Cells <1 (0-4) /hpf Hyaline Casts 101 H (0-2) /lpf Urine Mucus Occasional H (None) /hpf Salicylates mg/dL Urine Opiates Screen Not Detected (NotDetected) Ur Oxycodone Screen Not Detected (NotDetected) Urine Methadone Screen Not Detected (NotDetected) Ur Propoxyphene Screen Not Detected (NotDetected) Acetaminophen ug/mL Ur Barbiturates Screen Not Detected (NotDetected) U Tricyclic Antidepress Detected H (NotDetected) Ur Phencyclidine Scrn Not Detected (NotDetected) Ur Amphetamines Screen Not Detected (NotDetected) U Methamphetamines Scrn Not Detected (NotDetected) U Benzodiazepines Scrn Detected H (NotDetected) Urine Cocaine Screen Not Detected (NotDetected) U Marijuana (THC) Screen Not Detected (NotDetected) Serum Alcohol mg/dL Influenza Type A RNA (Not Detectd) Influenza Type B (PCR) (Not Detectd) - Radiology Data Radiology results: report reviewed (Chest x-ray shows consolidation right-sided pleural effusion, pneumonia), image reviewed Disposition Clinical Impression: Anxiety, Depression, Community acquired bacterial pneumonia Disposition: ADMITTED IP TO THIS HOSP Condition: Fair Is patient prescribed a controlled substance at d/c from ED?: No Referrals: Basil Srinivasan MD [Primary Care Provider] - 1-2 days
[2019-05-16] MEDS ORDERED: IPRATROPIUM-ALBUTEROL 3 ML NEB INHALATION STA (18:19)
[2019-05-16] MEDS ORDERED: DIAZEPAM 5 MG/ML 2 ML INJ IVP STA (18:38)
[2019-05-16 19:02] LABS: Appearance,Urine Cloudy (Clear); Bilirubin,Urine Negative (Negative); Blood,Urine Small (Negative); Color,Urine Yellow; Glucose,Urine (UA) Negative (Negative); Hyaline Casts,Urine 101 /lpf (0-2); Ketones,Urine Trace (Negative); Leukocyte Esterase,Urine Negative (Negative); Mucus,Urine Occasional /hpf; Nitrite,Urine Negative (Negative); PH, Urine 5.5 (5.0-8.0); Protein,Urine 1+ (Negative); RBC,Urine 2 /hpf (0-5); Specific Gravity,Urine 1.021 (1.001-1.035); Squamous Epithelial Cell,Urine <1 /hpf (0-4); WBC,Urine 1 /hpf (0-5)
[2019-05-16 19:08] LABS: Amphetamine Screen,Urine Not Detected (NotDetected); Barbiturate Screen,Urine Not Detected (NotDetected); Benzodiazepines Screen,Urine Detected (NotDetected); Cocaine Screen,Urine Not Detected (NotDetected); Methadone Screen, Urine Not Detected (NotDetected); Opiate Screen,Urine Not Detected (NotDetected); Oxycodone Screen, Urine Not Detected (NotDetected); Phencyclidine Screen,Urine Not Detected (NotDetected); Tricyclic Antidepressant,Urine Detected (NotDetected); Urn Cannabinoid Scrn Not Detected (NotDetected)
[2019-05-16 19:13] LABS: Basophils # (A) 0.2 k/uL (0-0.2); Basophils % (A) 1 %; Eosinophils # (A) 0.3 k/uL (0-0.7); Eosinophils % (A) 1 %; HCT 35.4 % (39.0-53.0); HGB 12.1 gm/dL (13.0-17.5); Lymphocytes # (A) 0.5 k/uL (1.0-4.8); Lymphocytes % (A) 2 %; MCH 31.1 pg (25.0-35.0); MCHC 34.2 g/dL (31.0-37.0); Mean Platelet Volume 6.5; Monocytes % (A) 7 %; Neutrophils % (A) 88 %; Platelet Count 281 k/uL (150-450); RBC 3.89 m/uL (4.30-5.90); RDW 13.7 % (11.5-15.5); WBC 28.5 k/uL (3.8-10.6)
[2019-05-16 19:14] LABS: ALT 33 U/L (21-72); AST 36 U/L (17-59); Acetaminophen <10.0 ug/mL; African American GFR (CKD) >90 (>60 ml/min/1.73 sqM); Alkaline Phosphatase 71 U/L (38-126); Anion Gap 10 mmol/L; Blood Urea Nitrogen 38 mg/dL (9-20); Carbon Dioxide 25 mmol/L (22-30); Chloride 92 mmol/L (98-107); Glucose 117 mg/dL (74-99); Neutrophils # (A) 25.1 k/uL (1.3-7.7); Potassium 4.1 mmol/L (3.5-5.1); Salicylate <1.0 mg/dL; Sodium 127 mmol/L (137-145); Total Protein 6.4 g/dL (6.3-8.2)
--- NOTE | 2019-05-16 19:22 | XR ---
EXAMINATION TYPE: XR chest 2V DATE OF EXAM: 05/16/2019 COMPARISON: 01/26/2015 HISTORY: Cough and fever TECHNIQUE: Frontal and lateral views of the chest are obtained. FINDINGS: There is blunting of right costophrenic angle with evidence of a moderate right pleural ef fusion. There is also some airspace consolidation right lower lobe. There is loculated pleural fluid on the right side. Left lung is clear. There is no heart failure. IMPRESSION: There is new right pleural effusion and right lower lobe consolidation compared to old e xam. No heart failure.
[2019-05-16] MEDS ORDERED: PIPERACILLIN-TAZOBACTAM 3.375 GM in SODIUM CHLORIDE 0.9% 100 ML IVPB STA (19:29)
[2019-05-16] MEDS ORDERED: LEVOFLOXACIN 750MG-D5W PMX 750 MG in DEXTROSE/WATER 1 150ML.BAG IVPB STA (19:29)
[2019-05-16] MEDS ORDERED: PNEUMONIA PROTOCOL UTILIZED 1 EACH MISC PO PRN (19:29)
[2019-05-16 19:32] LABS: Alcohol <10 mg/dL
[2019-05-16] MEDS: SODIUM CHLORIDE 0.9% 1,000 ML IV SCH (20:07)
[2019-05-16] MEDS: IPRATROPIUM-ALBUTEROL 3 ML NEB INHALATION SCH (20:17)
[2019-05-16] MEDS ORDERED: BACLOFEN 10 MG TAB PO PRN (21:38)
[2019-05-16] MEDS ORDERED: ACETAMINOPHEN TAB 325 MG TAB PO PRN (21:39)
[2019-05-16] MEDS: DOXEPIN 25 MG CAP PO SCH (22:31)
[2019-05-16] MEDS: busPIRone HCl 10 MG TAB PO SCH (22:31)
[2019-05-16] MEDS: GABAPENTIN 300 MG CAP PO SCH (22:31)
[2019-05-16] MEDS: LORazepam 2 MG/ML INJ IV PRN (22:42)
[2019-05-17] MEDS: LACTATED RINGERS 1,000 ML IV SCH ×3 (01:12→19:00)
[2019-05-17] MEDS: SODIUM CHLORIDE 0.9% 1,000 ML IV SCH ×2 (05:09→17:22)
--- NOTE | 2019-05-17 07:20 | XR ---
EXAMINATION TYPE: XR chest 2V DATE OF EXAM: 05/17/2019 HISTORY: pneumonia. REFERENCE: Previous study dated 05/16/2019. FINDINGS: There is worsening consolidation of the right lung. There is an enlarging right pleural eff usion. Heart size is obscured. The left lung is clear. IMPRESSION: WORSENING RIGHT LUNG CONSOLIDATION MOST LIKELY REPRESENTING PNEUMONIA WITH A CONCOMITANT EFFUSION WHI CH IS ENLARGING.
[2019-05-17] MEDS: IPRATROPIUM-ALBUTEROL 3 ML NEB INHALATION SCH ×5 (08:47→19:52)
[2019-05-17] MEDS: ENOXAPARIN 40 MG/0.4 ML SYRINGE SQ SCH (09:28)
[2019-05-17] MEDS: GABAPENTIN 300 MG CAP PO SCH ×3 (09:28→21:20)
[2019-05-17] MEDS: busPIRone HCl 10 MG TAB PO SCH ×2 (09:28→21:20)
[2019-05-17] MEDS: ARIPiprazole 10 MG TAB PO SCH (09:28)
[2019-05-17] MEDS: PIPERACILLIN-TAZOBACTAM 3.375 GM in SODIUM CHLORIDE 0.9% 100 ML IVPB SCH ×2 (09:29→17:15)
[2019-05-17] MEDS: LORazepam 2 MG/ML INJ IV PRN (09:47)
[2019-05-17] MEDS ORDERED: RX INFO: IV CONTRAST WAS GIVEN 1 EACH MISC MISCELLANE PRN (11:17)
--- NOTE | 2019-05-17 14:02 | CT ---
EXAMINATION TYPE: CT chest w con DATE OF EXAM: 05/17/2019 COMPARISON: None. HISTORY: History of mass/Pneumonia CT DLP: 260 mGycm Automated exposure control for dose reduction was used. CONTRAST: CT scan of the chest is performed with IV Contrast, patient injected with 100 mL of Isovue 300. FINDINGS: There are bullous changes in the right upper lobe. There is right apical scarring. There is an extensive, loculated, thick rind pleural effusion on the right. There is a smaller left s ided effusion. The lower lobe bronchi on the right are attenuated but are patent. There is some right basilar airspace disease which may represent atelectasis or pneumonia. There is basilar atelectasis on the left. There is no significant axillary adenopathy. There is an 8.7 mL millimeter pretracheal lymph node. Th ere is a 3 cm conglomerate lymph node mass in the right hilum. No bony destructive lesions are seen. Visualized portions of the upper abdomen are unremarkable. IMPRESSION: 1. Complex loculated thick rind fluid collection on the right extending across the midline with a sma ller left effusion. 2. Diffuse airspace disease on the right with bullous change in the upper lobes. 3. No definite solid mass is seen. 4. Right hilar and mediastinal adenopathy may be reactive or neoplastic.
--- NOTE | 2019-05-17 14:30 | P.CNPUL ---
History of Present Illness Consult date: 05/17/19 Requesting physician: Edwin Navarrete Reason for consult: abnormal CXR/CT Chief complaint: Altered mental status History of present illness: This is a 54-year-old gentleman who follows with Dr. Srinivasan as his primary care physician. He has a history of bipolar disorder, closed head injury, schi zophrenia, compartment syndrome of the left lower extremity, COPD, chronic and ongoing tobacco dependence. He presented to the emergency room yesterday with altered mental status and fever. The patient himself is a poor historian. He was refusing to give much information. He did feel as though he was withdrawing from benzodiazepines. Urine drug screen was positive for tricyclic antidepressants and benzodiazepines. Chest x-ray showed a new right pleural effusion and right lower lobe consolidation. White count 28.5. Hemoglobin 12.1. Creatinine 0.81. Influenza screen negative. Initial temp 101.1. He is admitted for suspected pneumonia. He is seen today in consultation on the regular medical floor. He is currently awake. He is a poor historian. Unable to give much information. Does complain of right sided chest pain and pain with inhalation and coughing. He's maintaining O2 saturation in the low 90s on 2 L/m per nasal cannula. He's been afebrile. Somewhat tachycardic. His been initiated on Zosyn and Levaquin. Lactated Ringer's at 125 ML's per hour. Review of Systems ROS unobtainable: due to mental status Past Medical History Past Medical History: COPD Additional Past Medical History / Comment(s): compartment syndrome to left lower leg, GI upset, COPD, NEUROPATHY. per old hx 2010- closed head injury 2006, anxiety bipolar depression schitzophrenia, recent fall-scabbed area to forehead. History of Any Multi-Drug Resistant Organisms: MRSA Date of last positivie culture/infection: ?2010 h&p MDRO Source:: no source provided Past Surgical History: Back Surgery Additional Past Surgical History / Comment(s): Surgery on Left Lower Leg for Compartment Syndrome November 2010, lt leg debridment had non healing wound/wound vac 2010- per old 2010 hx mrsa listed but no date or source.sinus sx. Past Anesthesia/Blood Transfusion Reactions: No Reported Reaction Past Psychological History: ADD/ADHD, Anxiety, Bipolar, Depression, Schizophrenia Additional Psychological History / Comment(s): pt sent from [facility] - [place]- confusion, alt mental status, not acting right, poor historian at this time. Smoking Status: Current every day smoker Past Alcohol Use History: None Reported Additional Past Alcohol Use History / Comment(s): 2 ppd x 32 years Past Drug Use History: None Reported Additional Drug Use History / Comment(s): Percocet and Xanax also per old 2010 h&p used heroin, ecstacy, amphetamines, benzodiazepines - Past Family History Father Family Medical History: Myocardial Infarction ([place]) Additional Family Medical History / Comment(s): ETOH abuse, Cardiac Arrest at the age of 60 withdrawing from ETOH Mother Family Medical History: Congestive Heart Failure (CHF), Hypertension Additional Family Medical History / Comment(s): Breast Cancer that spread to the lymph nodes Medications and Allergies Home Medications Medication Instructions Recorded Confirmed Type ARIPiprazole [Abilify] 10 mg PO DAILY 04/27/19 05/16/19 History Buprenorphine HCl [Subutex] 8 mg SUBLINGUAL AC-TID 04/27/19 05/16/19 History Doxepin HCl [SINEquan] 150 mg PO HS 04/27/19 05/16/19 History Gabapentin 600 mg PO TID 04/27/19 05/16/19 History busPIRone HCl [Buspar] 10 mg PO BID 04/27/19 05/16/19 History Baclofen [Lioresal] 20 mg PO Q6H PRN 05/16/19 05/16/19 History Allergies Allergy/AdvReac Type Severity Reaction Status Date / Time Fish Containing Products Allergy Unknown Verified 05/16/19 16:41 [Fish] ibuprofen [From Motrin] Allergy Unknown Verified 05/16/19 16:41 Physical Exam Vitals: Vital Signs Temp Pulse Pulse Resp BP BP Pulse Ox 05/17/19 08:55 96 05/17/19 08:48 96 05/17/19 07:00 97.8 F 116 H 18 97/60 91 L 05/17/19 02:20 94 95/54 05/17/19 00:47 98.6 F 89 16 84/40 96 05/16/19 21:05 98.4 F 81 15 90/50 97 05/16/19 19:55 99.5 F 82 18 104/66 99 05/16/19 18:38 100 05/16/19 18:29 104 H 05/16/19 18:28 100.1 F H 108 H 18 111/72 95 05/16/19 17:05 18 05/16/19 16:20 101.1 F H 101 H 18 110/65 90 L Intake and Output 05/16/19 05/17/19 05/17/19 22:59 06:59 14:59 Intake Total 200 600 Output Total 200 Balance 200 400 Intake: Intake, IV Titration 200 600 Amount Lactated Ringers 1,000 ml 600 @ 125 mls/hr IV .Q8H ARCHIE Rx#:[id number] Piperacillin-Tazobactam 3 100 .375 gm In Sodium Chloride 0.9% 100 ml @ 200 mls/hr IVPB ONCE STA Rx#:[id number] Sodium Chloride 0.9% 1, 100 000 ml @ 100 mls/hr IV . Q10H ARCHIE Rx#:[id number] Output: Urine 200 Other: Voiding Method Urinal Urinal Urinal Incontinent Incontinent # Voids 1 2 Weight 62.596 kg GENERAL EXAM: Alert, frail, cachectic, disheveled 54-year-old gentleman, comfortable in no apparent distress. 2 L nasal cannula. HEAD: Normocephalic. EYES: Normal reaction of pupils, equal size. NOSE: Clear with pink turbinates. THROAT: No erythema or exudates. NECK: No masses, no JVD. CHEST: No chest wall deformity. LUNGS: Equal air entry with scattered rhonchi throughout the right lung. CVS: S1 and S2 normal with no audible murmur, regular rhythm. ABDOMEN: No hepatosplenomegaly, normal bowel sounds, no guarding or rigidity. SPINE: No scoliosis or deformity SKIN: No rashes CENTRAL NERVOUS SYSTEM: No focal deficits, tone is normal in all 4 extremities. EXTREMITIES: There is no peripheral edema. No clubbing, no cyanosis. Rowan pheral pulses are intact. Results - Laboratory Findings CBC and BMP: 05/16/19 18:43 05/16/19 18:43 Abnormal lab findings: Abnormal Labs 05/16/19 05/16/19 05/16/19 18:43 18:43 18:43 WBC 28.5 H RBC 3.89 L Hgb 12.1 L Hct 35.4 L Neutrophils # 25.1 H Lymphocytes # 0.5 L Monocytes # 2.0 H Sodium 127 L Chloride 92 L BUN 38 H Glucose 117 H Albumin 3.0 L Urine Protein 1+ H Urine Ketones Trace H Urine Blood Small H Hyaline Casts 101 H Urine Mucus Occasional H U Tricyclic Antidepress Detected H U Benzodiazepines Scrn Detected H - Diagnostic Findings Chest x-ray: image reviewed CT scan - chest: image reviewed Assessment and Plan Assessment: Impression: #1 Acute right lung pneumonia, with complex loculated thick rind fluid collection on the right extending across the midline with a smaller left effusion. Diffuse airspace disease on the right with bullous changes in the upper lobes. No definitive solid mass seen. Right hilar mediastinal adenopathy may be reactive or neoplastic. #2 Right sided chest pain secondary to above. #3 Acute hypoxic respiratory failure secondary to above. #4 leukocytosis secondary to above. #5 Bipolar disorder. #6 Schizophrenia. #7 History of head injury. #8 History of compartment syndrome of the left lower extremity. #9 Chronic obstructive pulmonary disease. #10 Chronic and ongoing tobacco dependence. Plan: The patient was seen and evaluated by Dr. Rai. Chest x-ray and labs reviewed. Computed tomography scan ordered and noted as above. We will consult cardiothoracic surgery regarding the complex loculated thick rind fluid collec tion in the right lung. We'll continue with Zosyn and Levaquin for now. Continue bronchodilators. We will continue to follow and make further recommendations based on his clinical status. I, the cosigning physician, performed a history & physical examination of the patient. Lungs sounds scattered rhonchi throughout the right lung. Maintaining good O2 saturations in the 90s on 2 L/m per nasal. I discussed the assessment and plan of care with my nurse practitioner, Arabella Florence. I attest to the above consultation as dictated by her. Time with Patient: Greater than 30
[2019-05-17] MEDS: Buprenorphine Hcl [Subutex] 8 MG SUBLINGUAL SCH (17:23)
[2019-05-17] MEDS ORDERED: VANCOMYCIN IV PER PHARMACY 1 EACH MISC MISCELLANE PRN (20:26)
--- NOTE | 2019-05-17 20:26 | P.HPIM ---
History of Present Illness H&P Date: 05/17/19 Chief Complaint: Fever and congested History of presenting complaint: This is a 54-year-old patient of Dr. andino from [place]. Unable to get much of history from the patient as he mumbles then he remains quite. I gather from the ER notes that he apparently is homeless 2. Patient's history include closed head injury bipolar neuropathy COPD. Patient is an active smoker at least 2 packs a day. He did present to the ER stating that he is withdrawing from benzodiazepines and he is out of the same. He does follow with Dr. Rivero from out of the [facility]. Patient is very congested chronic cough so tired and is not able to expectorate. Hearing fever and tachycardia when initially presented. Was started on IV antibiotics. Pulmonary was consulted. Patient just about wakes up to speak that goes back to sleep. Review of systems: GEN.: Weak tired fever EYES: None HEENT: None NECK: None RESPIRATORY: Congested in the chest CARDIOVASCULAR: None GASTROINTESTINAL: None GENITOURINARY: None MUSCULOSKELETAL: Some pain in the joints LYMPHATICS: None HEMATOLOGICAL: None PSYCHIATRY: Rather withdrawn NEUROLOGICAL: None Past medical history to include: COPD, compartment syndrome to the left lower leg, peripheral neuropathy, closed head injury, bipolar disorder, schizophrenia, MRSA infection possible ADHD Social history: Smokes about 2 packs a day for over 30 years. History lists multiple drugs use in the past at least including Percocet Xanax and groin access EF remains benzodiazepine. Patient currently denies any drug use Family history: Myocardial infarction alcohol abuse Physical examination: VITAL SIGNS: 101.1, 101, 18, 1 10/ 65, 90% room air GENERAL: BMI 21, somewhat disabled laying in bed lethargic but arousable, bit delirious. EYES: Pupils equal. Conjunctiva normal. HEENT: External appearance of nose and ears normal, oral cavity dry. NECK: JVD unable to assess; masses not palpable. HEART: First and second heart sounds are normal; no edema. LUNGS: Respiratory rate increased, diminished breath sounds coarse crackles on the right base posteriorly. ABDOMEN: Soft, nontender, liver spleen not palpable, no masses palpable. PSYCH: Lethargic but arousable does mumble some answersl. NEUROLOGICAL: Cranial nerves grossly intact; no facial asymmetry, moving all 4 limbs. LYMPHATICS: No lymph nodes palpable in the axilla and neck INVESTIGATIONS, reviewed in the clinical context: White count 28.5 hemoglobin 12.1 sodium 127 potassium 4.1. Creatinine 0.81 albumin 3.0 UA negative for leukoesterase and nitrites Chest x-ray film personally reviewed by me-shows dense consolidation of the right side with questionable fluid Computed tomography scan of the chest shows complex lobular take fluid collection in the right extending across the midline diffuse airspace disease in the right with bullous changes in the apex lobes no solid mass reported Assessment: -Right-sided multilobar pneumonia with parapneumonic effusion cannot rule out empyema causing sepsis -Acute delirium with encephalopathy secondary to underlying sepsis -Acute COPD exacerbation in a current smoker -Tonic nicotine dependence patient's cigarette smoker -Idiopathic peripheral neuropathy -Bipolar disorder -Hyponatremia -Hypoalbuminemia could be an acute phase reactant Plan: Patient be started on IV Zosyn and Levaquin by the special education professor. Given patient's poor nutritional status will also add coverage for MRSA with vancomycin. Patient will need at least a chest tube given his clinical and radiological findings. We'll do aspiration precautions. We'll also give IV fluids. Follow lab work closely. Prognosis guarded. Past Medical History Past Medical History: COPD Additional Past Medical History / Comment(s): compartment syndrome to left lower leg, GI upset, COPD, NEUROPATHY. per old hx 2010- closed head injury 2006, anxiety bipolar depression schitzophrenia, recent fall-scabbed area to forehead. History of Any Multi-Drug Resistant Organisms: MRSA Date of last positivie culture/infection: ?2010 h&p MDRO Source:: no source provided Past Surgical History: Back Surgery Additional Past Surgical History / Comment(s): Surgery on Left Lower Leg for Compartment Syndrome November 2010, lt leg debridment had non healing wound/wound vac 2010- per old 2010 hx mrsa listed but no date or source.sinus sx. Past Anesthesia/Blood Transfusion Reactions: No Reported Reaction Past Psychological History: ADD/ADHD, Anxiety, Bipolar, Depression, Schizophrenia Additional Psychological History / Comment(s): pt sent from [facility]- confusion, alt mental status, not acting right, poor historian at this time. Smoking Status: Current every day smoker Past Alcohol Use History: None Reported Additional Past Alcohol Use History / Comment(s): 2 ppd x 32 years Past Drug Use History: None Reported Additional Drug Use History / Comment(s): Percocet and Xanax also per old 2010 h&p used heroin, ecstacy, amphetamines, benzodiazepines - Past Family History Father Family Medical History: Myocardial Infarction ([place]) Additional Family Medical History / Comment(s): ETOH abuse, Cardiac Arrest at the age of 60 withdrawing from ETOH Mother Family Medical History: Congestive Heart Failure (CHF), Hypertension Additional Family Medical History / Comment(s): Breast Cancer that spread to the lymph nodes Medications and Allergies Home Medications Medication Instructions Recorded Confirmed Type ARIPiprazole [Abilify] 10 mg PO DAILY 04/27/19 05/16/19 History Buprenorphine HCl [Subutex] 8 mg SUBLINGUAL AC-TID 04/27/19 05/16/19 History Doxepin HCl [SINEquan] 150 mg PO HS 04/27/19 05/16/19 History Gabapentin 600 mg PO TID 04/27/19 05/16/19 History busPIRone HCl [Buspar] 10 mg PO BID 04/27/19 05/16/19 History Baclofen [Lioresal] 20 mg PO Q6H PRN 05/16/19 05/16/19 History Allergies Allergy/AdvReac Type Severity Reaction Status Date / Time Fish Containing Products Allergy Unknown Verified 05/16/19 16:41 [Fish] ibuprofen [From Motrin] Allergy Unknown Verified 05/16/19 16:41 Physical Exam Vitals: Vital Signs Temp Pulse Pulse Resp BP BP Pulse Ox 05/17/19 08:55 96 05/17/19 08:48 96 05/17/19 07:00 97.8 F 116 H 18 97/60 91 L 05/17/19 02:20 94 95/54 05/17/19 00:47 98.6 F 89 16 84/40 96 05/16/19 21:05 98.4 F 81 15 90/50 97 05/16/19 19:55 99.5 F 82 18 104/66 99 05/16/19 18:38 100 05/16/19 18:29 104 H 05/16/19 18:28 100.1 F H 108 H 18 111/72 95 05/16/19 17:05 18 05/16/19 16:20 101.1 F H 101 H 18 110/65 90 L Intake and Output 05/16/19 05/17/19 05/17/19 22:59 06:59 14:59 Intake Total 200 600 Output Total 200 Balance 200 400 Intake: Intake, IV Titration 200 600 Amount Lactated Ringers 1,000 ml 600 @ 125 mls/hr IV .Q8H [facility] Rx#:[id number] Piperacillin-Tazobactam 3 100 .375 gm In Sodium Chloride 0.9% 100 ml @ 200 mls/hr IVPB ONCE STA Rx#:[id number] Sodium Chloride 0.9% 1, 100 000 ml @ 100 mls/hr IV . Q10H [facility] Rx#:[id number] Output: Urine 200 Other: Voiding Method Urinal Urinal Incontinent Incontinent # Voids 1 2 Weight 62.596 kg Results CBC & Chem 7: 05/16/19 18:43 05/16/19 18:43 Labs: Abnormal Lab Results - Last 24 Hours (Table) 05/16/19 05/16/19 05/16/19 Range/Units 18:43 18:43 18:43 WBC 28.5 H (3.8-10.6) k/uL RBC 3.89 L (4.30-5.90) m/uL Hgb 12.1 L (13.0-17.5) gm/dL Hct 35.4 L (39.0-53.0) % Neutrophils # 25.1 H (1.3-7.7) k/uL Lymphocytes # 0.5 L (1.0-4.8) k/uL Monocytes # 2.0 H (0-1.0) k/uL Sodium 127 L (137-145) mmol/L Chloride 92 L (98-107) mmol/L BUN 38 H (9-20) mg/dL Glucose 117 H (74-99) mg/dL Albumin 3.0 L (3.5-5.0) g/dL Urine Protein 1+ H (Negative) Urine Ketones Trace H (Negative) Urine Blood Small H (Negative) Hyaline Casts 101 H (0-2) /lpf Urine Mucus Occasional H (None) /hpf U Tricyclic Antidepress Detected H (NotDetected) U Benzodiazepines Scrn Detected H (NotDetected) Thrombosis Risk Factor Assmnt - Choose All That Apply Any of the Below Risk Factors Present?: Yes Each Factor Represents 1 point: Abnormal pulmonary function (COPD), Age 41-60 years, Medical pt on bed rest Other Risk Factors: No Other congenital or acquired thrombophilia - If yes, enter type in comment: No Thrombosis Risk Factor Assessment Total Risk Factor Score: 3 Thrombosis Risk Factor Assessment Level: Moderate Risk
[2019-05-17] MEDS: VANCOMYCIN 1,250 MG in SODIUM CHLORIDE 0.9% 250 ML IVPB SCH (21:20)
[2019-05-17] MEDS: LEVOFLOXACIN 750MG-D5W PMX 750 MG in DEXTROSE/WATER 1 150ML.BAG IVPB SCH (21:20)
[2019-05-17] MEDS: NICOTINE 21MG/24HR PATCH TRANSDERM SCH (21:23)
[2019-05-17] MEDS: DOXEPIN 25 MG CAP PO SCH (21:24)
[2019-05-18] MEDS: PIPERACILLIN-TAZOBACTAM 3.375 GM in SODIUM CHLORIDE 0.9% 100 ML IVPB SCH ×3 (00:45→16:54)
[2019-05-18] MEDS: SODIUM CHLORIDE 0.9% 1,000 ML IV SCH ×2 (02:01→11:30)
[2019-05-18] MEDS: LACTATED RINGERS 1,000 ML IV SCH ×4 (02:01→19:30)
[2019-05-18] MEDS: PROPOFOL 1,000 MG in EMPTY BAG 1 BAG IV SCH (02:30)
[2019-05-18 07:15] LABS: African American GFR (CKD) >90 (>60 ml/min/1.73 sqM); Anion Gap 5 mmol/L; Blood Urea Nitrogen 8 mg/dL (9-20); Calcium 7.7 mg/dL (8.4-10.2); Carbon Dioxide 29 mmol/L (22-30); Chloride 98 mmol/L (98-107); Glucose 80 mg/dL (74-99); Sodium 132 mmol/L (137-145)
[2019-05-18 07:39] LABS: Basophils # (A) 0.2 k/uL (0-0.2); Basophils % (A) 1 %; Eosinophils % (A) 0 %; HCT 29.4 % (39.0-53.0); Lymphocytes # (A) 0.8 k/uL (1.0-4.8); Lymphocytes % (A) 4 %; MCH 31.3 pg (25.0-35.0); MCHC 33.3 g/dL (31.0-37.0); MCV 93.8 fL (80.0-100.0); Mean Platelet Volume 6.8; Monocytes # (A) 1.9 k/uL (0-1.0); Monocytes % (A) 8 %; Neutrophils # (A) 19.4 k/uL (1.3-7.7); Neutrophils % (A) 86 %; Platelet Count 259 k/uL (150-450); RBC 3.13 m/uL (4.30-5.90); RDW 13.9 % (11.5-15.5); WBC 22.6 k/uL (3.8-10.6)
[2019-05-18 07:47] LABS: HGB 9.8 gm/dL (13.0-17.5)
[2019-05-18] MEDS: ENOXAPARIN 40 MG/0.4 ML SYRINGE SQ SCH (08:13)
[2019-05-18] MEDS: GABAPENTIN 300 MG CAP PO SCH ×2 (08:13→16:54)
[2019-05-18] MEDS: ARIPiprazole 10 MG TAB PO SCH (08:13)
[2019-05-18] MEDS: NICOTINE 21MG/24HR PATCH TRANSDERM SCH (08:13)
[2019-05-18] MEDS: busPIRone HCl 10 MG TAB PO SCH (08:13)
[2019-05-18] MEDS: VANCOMYCIN 1,250 MG in SODIUM CHLORIDE 0.9% 250 ML IVPB SCH ×2 (08:13→19:30)
[2019-05-18] MEDS: IPRATROPIUM-ALBUTEROL 3 ML NEB INHALATION SCH ×4 (08:38→19:41)
--- NOTE | 2019-05-18 10:17 | P.PN ---
Subjective Progress Note Date: 05/18/19 This is a 54-year-old gentleman who follows with Dr. Srinivasan as his primary care physician. He has a history of bipolar disorder, closed head injury, schizophrenia, compartment syndrome of the left lower extremity, COPD, chronic and ongoing tobacco dependence. He presented to the emergency room yesterday with altered mental status and fever. The patient himself is a poor historian. He was refusing to give much information. He did feel as though he was withdrawing from benzodiazepines. Urine drug screen was positive for tricyclic antidepressants and benzodiazepines. Chest x-ray showed a new right pleural effusion and right lower lobe consolidation. White count 28.5. Hemoglobin 12.1. Creatinine 0.81. Influenza screen negative. Initial temp 101.1. He is admitted for suspected pneumonia. He is seen today in consultation on the regular medical floor. He is currently awake. He is a poor historian. Unable to give much information. Does complain of right sided chest p ain and pain with inhalation and coughing. He's maintaining O2 saturation in the low 90s on 2 L/m per nasal cannula. He's been afebrile. Somewhat tachycardic. His been initiated on Zosyn and Levaquin. Lactated Ringer's at 125 ML's per hour. On 05/18/2019 the patient is doing well stable and is hemodynamic stable and afebrile. Still on today's of oxygen by nasal cannula pulse ox is 93%. CAT scan results were noted. Consult was placed for interventional radiology regarding a percutaneous predicted catheter insertion. The patient remains on a combination of antibiotics including Zosyn and Levaquin and vancomycin. The blood cultures negative. Objective - Vital Signs Vital signs: Vital Signs Temp 99.4 F 05/18/19 00:56 Pulse 93 05/18/19 08:50 Resp 20 05/18/19 00:56 BP 94/55 05/18/19 00:56 Pulse Ox 93 L 05/18/19 00:56 Intake & Output 05/17/19 05/18/19 05/18/19 18:59 06:59 18:59 Output Total 300 Balance -300 Output: Urine 300 Other: Voiding Method Urinal # Voids 1 0 - Exam GENERAL EXAM: Alert, frail, cachectic, disheveled 54-year-old gentleman, comfortable in no apparent distress. 2 L nasal cannula. HEAD: Normocephalic. EYES: Normal reaction of pupils, equal size. NOSE: Clear with pink turbinates. THROAT: No erythema or exudates. NECK: No masses, no JVD. CHEST: No chest wall deformity. LUNGS: Equal air entry with scattered rhonchi throughout the right lung. CVS: S1 and S2 normal with no audible murmur, regular rhythm. ABDOMEN: No hepatosplenomegaly, normal bowel sounds, no guarding or rigidity. SPINE: No scoliosis or deformity SKIN: No rashes CENTRAL NERVOUS SYSTEM: No focal deficits, tone is normal in all 4 extremities. EXTREMITIES: There is no peripheral edema. No clubbing, no cyanosis. Peripheral pulses are intact. - Labs CBC & Chem 7: 05/18/19 05:31 05/18/19 05:31 Labs: Abnormal Lab Results - Last 24 Hours (Table) 05/18/19 05/18/19 Range/Units 05:31 05:31 WBC 22.6 H (3.8-10.6) k/uL RBC 3.13 L (4.30-5.90) m/uL Hgb 9.8 L D (13.0-17.5) gm/dL Hct 29.4 L (39.0-53.0) % Neutrophils # 19.4 H (1.3-7.7) k/uL Lymphocytes # 0.8 L (1.0-4.8) k/uL Monocytes # 1.9 H (0-1.0) k/uL Sodium 132 L (137-145) mmol/L BUN 8 L (9-20) mg/dL Creatinine 0.54 L (0.66-1.25) mg/dL Calcium 7.7 L (8.4-10.2) mg/dL Microbiology - Last 24 Hours (Table) 05/16/19 18:43 Blood Culture - Preliminary Blood No Growth after 24 hours Assessment and Plan Plan: #1 Acute right lung pneumonia, with complex loculated thick rind fluid collection on the right extending across the midline with a smaller left effus ion. Diffuse airspace disease on the right with bullous changes in the upper lobes. No definitive solid mass seen. Right hilar mediastinal adenopathy may be reactive or neoplastic. #2 Right sided chest pain secondary to above. #3 Acute hypoxic respiratory failure secondary to above. #4 leukocytosis secondary to above. #5 Bipolar disorder. #6 Schizophrenia. #7 History of head injury. #8 History of compartment syndrome of the left lower extremity. #9 Chronic obstructive pulmonary disease. #10 Chronic and ongoing tobacco dependence. Plan patient is a poor surgical candidate. He has poor insight on his condition. We'll discuss with interventional radiology in a.m. in regards to percutaneous drainage of the largest pockets. This may not and the being completed successful. We'll may need to transfuse him TPA to assisted drainage. Nevertheless, the patient will need some sort of a drainage knowing that he has extensive pleural fluid which is complex and likely inadequate. Thoracoscopic surgery will be ideal, yet I'm not sure the patient will consent to that. A surgical consultation has also been placed. A final decision will be done tomorrow once seen by the various consultants. We'll continue to follow.
[2019-05-18] MEDS: LORazepam 2 MG/ML INJ IV PRN ×2 (12:03→18:23)
[2019-05-18] MEDS ORDERED: KETOROLAC 30 MG/ML 1 ML VIAL IVP SCH (13:30)
[2019-05-18] MEDS: Buprenorphine Hcl [Subutex] 8 MG SUBLINGUAL SCH (13:34)
[2019-05-18] MEDS: KETOROLAC 30 MG/ML 1 ML VIAL IVP PRN (13:45)
--- NOTE | 2019-05-18 13:57 | P.GSCN ---
History of Present Illness Consult date: 05/18/19 Reason for Consult: Loculated right pleural effusion with thick rind per chest CT, surgical recommendations Requesting physician: Farhat Rai History of present illness: This is a 54-year-old gentleman who follows on an outpatient basis with Dr. Srinivasan and [facility]. He has a previous medical history of chronic and ongoing tobacco dependence, COPD, closed head injury, paranoid schizophrenia, bipolar disorder, narcotic and illicit drug use. He presented to [facility] emergency room via EMS for anxiety, altered mental status, fever, and right sided chest pain. According to reports he called 911, police were present when EMS arrived, the patient was very secretive and refusing to g son information to the police or EMS, but he did agree to come to the hospital for evaluation and treatment. Temperature documented with EMS was 100.3F, initial temperature in the emergency room was 101.1F. White blood cell count on admission was 28.5 with lactic acid 1.1. He did have TCAs and benzos detected in his urine drug screen but all other drugs were undetected, and serum alcohol level was negative. Chest x-ray demonstrated right pleural effusion with right lower lobe consolidation. He was admitted for community-acquired pneumonia as well as anxiety/depression with consultation placed to pulmonology and psychiatry. CT of the chest was completed yesterday per pulmonology which demonstrated right-sided loculated pleural effusion with thick rind. Interventional radiology was consulted to place a pigtail catheter in order to instill alteplase to break up the loculations. Patient initially refused to have pigtail catheter placed, a family meeting is scheduled for tomorrow morning to discuss with the patient's brother the plan of care. Dr. Hatch from cardiothoracic surgery was consulted for surgical recommendations. Review of Systems Review of systems was completed and is negative except as noted. - Cardiovascular Reports as per HPI, Reports chest pain - Psychiatric Reports as per HPI, Reports anxiety, Reports depression, Reports paranoia Past Medical History Past Medical History: COPD Additional Past Medical History / Comment(s): compartment syndrome to left lower leg, GI upset, NEUROPATHY. per old hx 2010- closed head injury 2006, recent fall-scabbed area to forehead. History of Any Multi-Drug Resistant Organisms: MRSA Year Discovered:: ?2010 h&p MDRO Source:: no source provided Past Surgical History: Back Surgery Additional Past Surgical History / Comment(s): Surgery on Left Lower Leg for Compartment Syndrome November 2010, lt leg debridment had non healing wound/wound vac 2010- per 2010 hx mrsa listed but no date or source.sinus sx. Past Anesthesia/Blood Transfusion Reactions: No Reported Reaction Past Psychological History: ADD/ADHD, Anxiety, Bipolar, Depression, Schizophrenia Additional Psychological History / Comment(s): poor historian. Smoking Status: Current every day smoker Past Alcohol Use History: None Reported Additional Past Alcohol Use History / Comment(s): 2 ppd x 32 years Past Drug Use History: None Reported Additional Drug Use History / Comment(s): Percocet and Xanax also per 2010 h&p used heroin, ecstacy, amphetamines, benzodiazepines - Past Family History Father Family Medical History: Myocardial Infarction ([place]) Additional Family Medical History / Comment(s): ETOH abuse, Cardiac Arrest at the age of 60 withdrawing from ETOH Mother Family Medical History: Congestive Heart Failure (CHF), Hypertension Additional Family Medical History / Comment(s): Breast Cancer that spread to the lymph nodes Medications and Allergies Home Medications Medication Instructions Recorded Confirmed Type ARIPiprazole [Abilify] 10 mg PO DAILY 04/27/19 05/16/19 History Buprenorphine HCl [Subutex] 8 mg SUBLINGUAL AC-TID 04/27/19 05/16/19 History Doxepin HCl [SINEquan] 150 mg PO HS 04/27/19 05/16/19 History Gabapentin 600 mg PO TID 04/27/19 05/16/19 History busPIRone HCl [Buspar] 10 mg PO BID 04/27/19 05/16/19 History Baclofen [Lioresal] 20 mg PO Q6H PRN 05/16/19 05/16/19 History Allergies Allergy/AdvReac Type Severity Reaction Status Date / Time Fish Containing Products Allergy Unknown Verified 05/16/19 16:41 [Fish] ibuprofen [From Motrin] Allergy Unknown Verified 05/16/19 16:41 Surgical - Exam Vital Signs Temp Pulse Resp BP Pulse Ox 101.1 F H 101 H 18 110/65 90 L 05/16/19 16:20 05/16/19 16:20 05/16/19 16:20 05/16/19 16:20 05/16/19 16:20 - General well developed, well nourished, no distress, chronically ill - Eyes PERRL, normal ocular movement - ENT no hearing loss - Neck no masses, no bruits, trachea midline - Respiratory Lungs sounds diminished bilaterally, right greater than left, coarse breath sounds in the right base. Respirations even, nonlabored. Currently on room air with oxygen saturation 93%. - Cardiovascular S1, S2 present. Regular rate and rhythm, sinus rhythm on telemetry. Palpable peripheral pulses bilaterally. No edema present. No calf pain or tenderness noted. - Abdomen Abdomen: soft, non tender, bowel sounds - Genitourinary deferred - Rectum Deferred - Integumentary no rash, no growths - Neurologic normal coordination, normal sensation - Musculoskeletal normal posture - Psychiatric Patient admits to high anxiety related to being unable to find his clothes, his wallet with ID, and his phone. He is very focused on his concern for identity theft. oriented to time, oriented to person, oriented to place, speech is normal Results - Labs 05/18/19 05:31 05/18/19 05:31 Abnormal Lab Results - Last 24 Hours (Table) 05/18/19 05/18/19 Range/Units 05:31 05:31 WBC 22.6 H (3.8-10.6) k/uL RBC 3.13 L (4.30-5.90) m/uL Hgb 9.8 L D (13.0-17.5) gm/dL Hct 29.4 L (39.0-53.0) % Neutrophils # 19.4 H (1.3-7.7) k/uL Lymphocytes # 0.8 L (1.0-4.8) k/uL Monocytes # 1.9 H (0-1.0) k/uL Sodium 132 L (137-145) mmol/L BUN 8 L (9-20) mg/dL Creatinine 0.54 L (0.66-1.25) mg/dL Calcium 7.7 L (8.4-10.2) mg/dL Microbiology - Last 24 Hours (Table) 05/16/19 18:43 Blood Culture - Preliminary Blood No Growth after 24 hours Diabetes panel 05/18/19 Range/Units 05:31 Sodium 132 L (137-145) mmol/L Potassium 4.0 (3.5-5.1) mmol/L Chloride 98 (98-107) mmol/L Carbon Dioxide 29 (22-30) mmol/L BUN 8 L (9-20) mg/dL Creatinine 0.54 L (0.66-1.25) mg/dL Glucose 80 (74-99) mg/dL Calcium 7.7 L (8.4-10.2) mg/dL Calcium panel 05/18/19 Range/Units 05:31 Calcium 7.7 L (8.4-10.2) mg/dL Pituitary panel 05/18/19 Range/Units 05:31 Sodium 132 L (137-145) mmol/L Potassium 4.0 (3.5-5.1) mmol/L Chloride 98 (98-107) mmol/L Carbon Dioxide 29 (22-30) mmol/L BUN 8 L (9-20) mg/dL Creatinine 0.54 L (0.66-1.25) mg/dL Glucose 80 (74-99) mg/dL Calcium 7.7 L (8.4-10.2) mg/dL Adrenal panel 05/18/19 Range/Units 05:31 Sodium 132 L (137-145) mmol/L Potassium 4.0 (3.5-5.1) mmol/L Chloride 98 (98-107) mmol/L Carbon Dioxide 29 (22-30) mmol/L BUN 8 L (9-20) mg/dL Creatinine 0.54 L (0.66-1.25) mg/dL Glucose 80 (74-99) mg/dL Calcium 7.7 L (8.4-10.2) mg/dL - Imaging Chest x-ray: report reviewed, image reviewed CT scan - chest: report reviewed, image reviewed Assessment and Plan Assessment: 1. Right loculated pleural effusion with thick rind, leukocytosis 2. Chronic and ongoing tobacco dependence 3. COPD 4. Significant psychiatric history with closed head injury, paranoid schizophrenia, bipolar disorder, followed by [facility] Plan: The patient was seen and examined at the bedside. Chart/diagnostics were reviewed. The case was discussed in detail with Dr. Hatch who has reviewed his computed tomography scan. Recommend continuing antibiotics. Would like pigtail catheter placed in order to instill alteplase to breakup the loculations as much as possible. Patient may be clinically a candidate for thoracotomy with decortication at some point, however he may not consent to the procedure, nor be compliant with aftercare including maintenance of a pleural chest tube. Psychiatry has been consulted, appreciate recommendations for appropriate medication regimen, as well as patient's ability to give truly informed consent for procedures. The patient was given the options of pigtail catheter as well as surgical intervention. He appears to give a verbal consent at this time, however his compliance with care and understanding of treatments seems to change with each different care provider. We will discuss recommendations again tomorrow with brother present. Ultimately, IV antibiotics and pigtail catheter would be the first lines of therapy with surgical recommendations to follow. We will order incentive spirometry and encourage its use. Medical management of other comorbidities per primary care service. Thank you Dr. Rai for this consult. We will follow along with you. Time with Patient: Greater than 30
--- NOTE | 2019-05-18 16:32 | P.CN ---
Psychiatric Consult - . Consult date: 05/18/19 Consult:: 05/18/19 16:31 Consult Patient was admitted to medical floor with pneumonia and psychiatry was consulted to evaluate patient for depression. Chief complaint I dont like abilify, and I want try something different. History of presenting illness Patient reports feeling sad about his medical condition and recent diagnosis of lung infection. He says he brought himself to the hospital. He reports living alone in his apartment and claims to have been managing fairly well despite his multiple medical problems. He reports mood swings, racing thoughts and anxiety. He reports feeling paranoid that people know where he lives and might come after him. He denies current auditory or visual hallucinations. He denies current suicidal or homicidal ideations. Past psychiatric history Multiple psychiatric hospitalizations since his adolescent years. Diagnosed with bipolar disorder. Follows up with [facility]. Is drug seeking . Per medical records he visits ER seeking benzodiazipines. Substance use history Remote history of cocaine use, claims to have quit years ago. Smokes pack of cigarettes /day. Denies use of other illicit drugs Family psychiatric treatment history His a father had history of alcoholism and one of his second cousins committed suicide successfully by shooting himself. Medical history history of closed head injury, COPD, Peripheral neuropathy, rhabdomyolysis, anterior compartment syndrome, myocardial infarction and cardiac arrest Social history Lives alone in his apartment. Retired years ago and gets disability income. Not , has no children. Mental status exam appears older than his stated age. He is oriented to time place and person. His hygiene and grooming are poor and his appearance is disheveled. He does not have any loose associations flight of ideas or any disorder of thought process. He does not have any hallucinations. Has paranoid delusions. Is focused on the [place] game on the TV . His attention span is a poor and his memory is intact. He has no insight into his problems and is judgment is impaired. His mood is reported as sad and and affect constricted. Denies current suicidal or homicidal ideations. Diagnosis Bipolar disorder Plan Continue his out patient medications Doxepin 150mg po qhs for mood and insomnia Buspar 10mg po bid for anxiety Will discontinue abilify as patient does not want to continue it and asked to tried on different medication. Will start him on latuda 20mg po bid and the dose to titrated as tolerated. follow-up WITH [facility] Thank you for your consult. Please dont hesitate to contact psychiatry with any questions
--- NOTE | 2019-05-18 18:06 | XR ---
EXAMINATION TYPE: XR chest 1V portable DATE OF EXAM: 05/18/2019 COMPARISON: 05/17/2019 HISTORY: Short of breath TECHNIQUE: Single frontal view of the chest is obtained. FINDINGS: There is moderate size right pleural effusion. There is pulmonary edema. Heart is probably normal in size. There are chest leads. IMPRESSION: Large right pleural effusion increased compared to last exam yesterday. There is increas ing pulmonary edema compared to yesterday that could relate to RDS. This could also be worsening boby estive heart failure.
[2019-05-18 18:47] LABS: ABG Base Excess 4.6 mmol/L; ABG HCO3 29 mmol/L (21-25); ABG Oxygen Saturation 86.2 % (94-97); ABG PCO2 46 mmHg (35-45); ABG PH 7.41 (7.35-7.45); ABG TCO2 31 mmol/L (19-24); Allen Test Performed? Yes
[2019-05-18 18:53] LABS: ABG PO2 50 mmHg (83-108)
[2019-05-18 20:04] LABS: Glucose,Whole Blood 162 mg/dL (75-99)
--- NOTE | 2019-05-18 20:51 | XR ---
EXAMINATION TYPE: XR chest 1V portable DATE OF EXAM: 05/18/2019 COMPARISON: Today HISTORY: Respiratory failure TECHNIQUE: Single frontal view of the chest is obtained. FINDINGS: Endotracheal tube is 5 cm from the syed. There is nasogastric tube in good position. The re is moderate pulmonary edema. There is opacification of most of the right hemithorax. There are rose st leads. IMPRESSION: Severe pulmonary edema. Large right pleural effusion and right pulmonary consolidation. Heart and lungs unchanged.
[2019-05-18] MEDS: LEVOFLOXACIN 750MG-D5W PMX 750 MG in DEXTROSE/WATER 1 150ML.BAG IVPB SCH (21:50)
--- NOTE | 2019-05-18 21:52 | P.PN ---
Progress Note - Text Progress Note Date: 05/18/19 Chief Complaint: Fever and congested Interval history: This is a 54-year-old patient of Dr. andino from [place]. Unable to get much of history from the patient as he mumbles then he remains quite. I gather from the ER notes that he apparently is homeless 2. Patient's history include closed head injury bipolar neuropathy COPD. Patient is an active smoker at least 2 packs a day. He did present to the ER stating that he is withdrawing from benzodiazepines and he is out of the same. He does follow with Dr. Rivero from out of the [facility]. Patient is very congested chronic cough so tired and is not able to expectorate. Having fever and tachycardia when initially presented. Was started on IV antibiotics. Pulmonary was consulted. Patient just about wakes up to speak that goes back to sleep. Patient was diagnosed to have severe pneumonia, parapneumonic effusion, sepsis, suspected empyema delirium, COPD exacerbation. Cardiothoracic surgery was consulted with a view to chest tube/thoracotomy Today-laying in bed. More awake. Answering questions. Short of breath. Hardly eating. Review of systems: Was done for constitutional, cardiovascular, GI, pulmonary. relevant finding as above Active Medications Acetaminophen (Tylenol Tab) 650 mg PO Q6HR PRN PRN Reason: Fever and/ or Pain Last Admin: 05/18/19 17:12 Dose: 650 mg Documented by: Albuterol/Ipratropium (Duoneb 0.5 Mg-3 Mg/3 Ml Soln) 3 ml INHALATION RT-QID [facility] Last Admin: 05/18/19 19:41 Dose: 3 ml Documented by: Aripiprazole (Abilify) 10 mg PO DAILY [facility] Baclofen (Lioresal) 5 mg PO QID PRN PRN Reason: Muscle Spasm Buspirone HCl (Buspar) 10 mg PO BID [facility] Last Admin: 05/18/19 08:13 Dose: 10 mg Documented by: Diazepam (Valium) 5 mg IVP Q4H PRN PRN Reason: Seizures Doxepin HCl (Sinequan) 150 mg PO HS [facility] Last Admin: 05/17/19 21:24 Dose: 150 mg Documented by: Enoxaparin Sodium (Lovenox) 40 mg SQ DAILY [facility] Last Admin: 05/18/19 08:13 Dose: 40 mg Documented by: Gabapentin (Neurontin) 600 mg PO TID [facility] Last Admin: 05/18/19 16:54 Dose: 600 mg Documented by: Levofloxacin 750 mg/ IV (Solution) 150 mls @ 100 mls/hr IVPB Q24H [facility] Stop: 05/29/19 19:31 Last Admin: 05/17/19 21:20 Dose: 100 mls/hr Documented by: Piperacillin Sod/Tazobactam (Sod 3.375 gm/ Sodium Chloride) 100 mls @ 25 mls/hr IVPB Q8HR [facility] Stop: 05/27/19 08:01 Last Admin: 05/18/19 16:54 Dose: 25 mls/hr Documented by: Lactated Ringer's (Lactated Ringers) 1,000 mls @ 125 mls/hr IV .Q8H [facility] Last Admin: 05/18/19 18:22 Dose: 125 mls/hr Documented by: Vancomycin HCl 1,250 mg/ (Sodium Chloride) 250 mls @ 125 mls/hr IVPB Q12H [facility] Last Admin: 05/18/19 08:13 Dose: 125 mls/hr Documented by: Lactated Ringer's (Lactated Ringers) 1,000 mls @ 100 mls/hr IV .Q10H [facility] Ketorolac Tromethamine (Toradol) 15 mg IVP Q6HR PRN PRN Reason: Pain Stop: 05/23/19 13:31 Last Admin: 05/18/19 13:45 Dose: 15 mg Documented by: Lorazepam (Ativan) 1 mg IV Q6HR PRN PRN Reason: Anxiety Last Admin: 05/18/19 18:23 Dose: 1 mg Documented by: Lurasidone HCl (Latuda) 20 mg PO BID-W/MEALS [facility] Miscellaneous Information (Pneumonia Protocol Utilized) 1 each PO ONCE PRN PRN Reason: Per Protocol Miscellaneous Information (Rx Info: Iv Contrast Was Given) 1 each MISCELLANE DAILY PRN PRN Reason: Per Protocol Stop: 05/19/19 11:17 Nicotine (Habitrol 21mg/24hr Patch) 1 patch TRANSDERM DAILY [facility] Last Admin: 05/18/19 08:13 Dose: 1 patch Documented by: Buprenorphine Hcl [ (Subutex] 8 Mg) 8 mg SUBLINGUAL AC-TID [facility] Last Admin: 05/18/19 13:34 Dose: Not Given Documented by: Physical examination: VITAL SIGNS: 99, 100, 18, 95/56, 94% on 2 L GENERAL: Laying in bed, more communicate today, short of breath. EYES: Pupils equal. Conjunctiva normal. HEENT: External appearance of nose and ears normal, oral cavity dry. NECK: JVD unable to assess; masses not palpable. HEART: First and second heart sounds are normal; no edema. LUNGS: Respiratory rate increased, diminished breath sounds coarse crackles on the right base posteriorly. ABDOMEN: Soft, nontender, liver spleen not palpable, no masses palpable. PSYCH: Answering questions more appropriately today more awake INVESTIGATIONS, reviewed in the clinical context: White count 22.6 hemoglobin 9.8 potassium 4 creatinine 0.54 White count 28.5 hemoglobin 12.1 sodium 127 potassium 4.1. Creatinine 0.81 albumin 3.0 UA negative for leukoesterase and nitrites Chest x-ray film personally reviewed by me-shows dense consolidation of the right side with questionable fluid Computed tomography scan of the chest shows complex lobular take fluid collection in the right extending across the midline diffuse airspace disease in the right with bullous changes in the apex lobes no solid mass reported Assessment: -Right-sided multilobar pneumonia with parapneumonic effusion cannot rule out empyema causing sepsis, slow to respond -Acute hypoxic respiratory failure from above -Acute delirium with encephalopathy secondary to underlying sepsis, some improvement -Acute COPD exacerbation in a current smoker, slow to respond -Tonic nicotine dependence patient's cigarette smoker -Idiopathic peripheral neuropathy -Bipolar disorder -Hyponatremia -Hypoalbuminemia could be an acute phase reactant Plan: Patient remains on IV vancomycin, IV Zosyn, Levaquin. Patient is a chest tube as soon as possible.. Cardio thoracic surgery is of the case. Patient still remains rather sick. This was explained to the patient.
[2019-05-18] MEDS ORDERED: NALOXONE 0.4 MG/ML 1 ML VIAL IV PRN (23:36)
[2019-05-18] MEDS: NOREPINEPHRINE 4 MG in SODIUM CHLORIDE 0.9% 250 ML IV SCH (23:45)
[2019-05-19] MEDS: ARIPiprazole 10 MG TAB PO SCH ×2 (00:38→10:11)
[2019-05-19] MEDS: LURASIDONE 20 MG TAB PO SCH ×3 (00:38→17:39)
[2019-05-19] MEDS: PIPERACILLIN-TAZOBACTAM 3.375 GM in SODIUM CHLORIDE 0.9% 100 ML IVPB SCH ×3 (01:08→16:47)
[2019-05-19] MEDS: GABAPENTIN 300 MG CAP PO SCH ×4 (01:09→22:25)
[2019-05-19] MEDS: methylPREDNISolone SOD SUCCI 40 MG/ML 1 ML VIAL IV SCH ×3 (01:09→16:45)
[2019-05-19] MEDS: DOXEPIN 25 MG CAP PO SCH ×2 (01:11→22:24)
--- NOTE | 2019-05-19 01:20 | XR ---
EXAMINATION TYPE: XR chest 1V portable DATE OF EXAM: 05/19/2019 COMPARISON: Today HISTORY: Check tube placement TECHNIQUE: Single frontal view of the chest is obtained. FINDINGS: There is nasogastric tube with the tip overlying the gastric fundus. Tube is probably fold ed on itself. There is extensive edema in the left lung. There is extensive opacification right hemithorax related to large pleural effusion. Endotracheal tube is 7.5 cm from the syed. IMPRESSION: Large right pleural effusion. Extensive pulmonary edema. No change.
[2019-05-19] MEDS: busPIRone HCl 10 MG TAB PO SCH ×3 (01:23→21:48)
[2019-05-19] MEDS: PROPOFOL 1,000 MG in EMPTY BAG 1 BAG IV SCH ×4 (02:14→21:04)
[2019-05-19] MEDS: NOREPINEPHRINE 4 MG in SODIUM CHLORIDE 0.9% 250 ML IV SCH (04:00)
[2019-05-19 04:23] LABS: ABG Base Excess 5.1 mmol/L; ABG HCO3 30 mmol/L (21-25); ABG Oxygen Saturation 96.2 % (94-97); ABG PCO2 51 mmHg (35-45); ABG PH 7.38 (7.35-7.45); ABG PO2 83 mmHg (83-108); ABG TCO2 32 mmol/L (19-24); Allen Test Performed? Yes
[2019-05-19 04:47] LABS: HCT 32.6 % (39.0-53.0); HGB 10.9 gm/dL (13.0-17.5); MCH 31.1 pg (25.0-35.0); MCHC 33.3 g/dL (31.0-37.0); MCV 93.5 fL (80.0-100.0); Mean Platelet Volume 6.4; Platelet Count 376 k/uL (150-450); RBC 3.49 m/uL (4.30-5.90)
[2019-05-19 04:55] LABS: African American GFR (CKD) >90 (>60 ml/min/1.73 sqM); Anion Gap 4 mmol/L; Blood Urea Nitrogen 8 mg/dL (9-20); Calcium 8.1 mg/dL (8.4-10.2); Carbon Dioxide 30 mmol/L (22-30); Chloride 100 mmol/L (98-107); Glucose 154 mg/dL (74-99); Sodium 134 mmol/L (137-145)
[2019-05-19 05:12] LABS: Monocytes # (M) 2.45 k/uL (0-1.0); Neutrophils % (M) 91 %; Nucleated Red Blood Cells 0 /100 WBC (0-0); Total Cells Counted 100
[2019-05-19 05:13] LABS: Polychromasia Present
[2019-05-19] MEDS: LACTATED RINGERS 1,000 ML IV SCH ×2 (05:52→16:47)
--- NOTE | 2019-05-19 07:21 | XR ---
EXAMINATION TYPE: XR chest 1V portable DATE OF EXAM: 05/19/2019 COMPARISON: 05/19/2019 HISTORY: Shortness of breath. Ventilatory dependent respiratory failure. TECHNIQUE: Single frontal view of the chest is obtained. FINDINGS: There is an improved right pleural effusion status post placement of a right-sided thoraco stomy tube. Effusion is now small to moderate in layering. New subcutaneous emphysema seen along the right chest wall. Masslike consolidation is seen of the right hilum measuring at least 7.0 cm. Inters titial and alveolar opacities are present throughout the left lung predominating centrally. Cardia me diastinal silhouette is mildly enlarged. Enteric and endotracheal tubes are similar to the prior. Ent radha tube should be advanced approximately 9-10 cm proximal placement as the fenestrated portion is w ithin the distal esophagus. Endotracheal tube should be advanced approximately [address] ment. IMPRESSION: 1. Cephalad position of the endotracheal and enteric tubes. Enteric tube should be advanced 9-10 cm a nd endotracheal tube should be advanced approximately 4 cm. 2. Improved right pleural effusion now small-moderate status post right thoracostomy tube placement. 3. Underlying masslike right hilar consolidation. Follow-up to resolution is recommended to exclude m ass. 4. Extensive multifocal interstitial and alveolar opacities on the left. Given the central predominan ce considerations are for pulmonary edema, pulmonary hemorrhage or less likely ARDS.
--- NOTE | 2019-05-19 07:21 | P.PN ---
Subjective Progress Note Date: 05/19/19 This is a 54-year-old gentleman who follows with Dr. Srinivasan as his primary care physician. He has a history of bipolar disorder, closed head injury, schizophrenia, compartment syndrome of the left lower extremity, COPD, chronic and ongoing tobacco dependence. He presented to the emergency room yesterday with altered mental status and fever. The patient himself is a poor historian. He was refusing to give much information. He did feel as though he was withdrawing from benzodiazepines. Urine drug screen was positive for tricyclic antidepressants and benzodiazepines. Chest x-ray showed a new right pleural effusion and right lower lobe consolidation. White count 28.5. Hemoglobin 12.1. Creatinine 0.81. Influenza screen negative. Initial temp 101.1. He is admitted for suspected pneumonia. He is seen today in consultation on the regular medical floor. He is currently awake. He is a poor historian. Unable to give much information. Does complain of right sided chest p ain and pain with inhalation and coughing. He's maintaining O2 saturation in the low 90s on 2 L/m per nasal cannula. He's been afebrile. Somewhat tachycardic. His been initiated on Zosyn and Levaquin. Lactated Ringer's at 125 ML's per hour. On 05/18/2019 the patient is doing well stable and is hemodynamic stable and afebrile. Still on today's of oxygen by nasal cannula pulse ox is 93%. CAT scan results were noted. Consult was placed for interventional radiology regarding a percutaneous predicted catheter insertion. The patient remains on a combination of antibiotics including Zosyn and Levaquin and vancomycin. The blood cultures negative. On 05/19/2019 I'm seeing this patient for a follow-up. Note that the patient's condition decompensated yesterday afternoon. The patient became progressively more hypoxic. He initially required 15 L of oxygen from a baseline of 2 L and subsequently he became more hypoxic based on the percent nonrebreather facemask. He was transferred to the ICU and the patient was BiPAP and following that he was intubated and placed on a mechanical ventilator. This morning, the patient is still having some difficulties oxygenation. His PEEP is at 12 with an FiO2 of 80% and a tidal volume of 500 with a rate of 20. The patient's most recent blood gas showed a pH of 7.3 with a pCO2 of 51 and pO2 of 83. Chest x-ray shows complete opacification of the right lung and an extensive consolidation of the left lung. ET tube is in a good location. The patient became hypotensive and started on pressors. White cell count is at 35. And the patient is covered with a combination of antibiotics including Zosyn and Levaquin and vancomycin. No cultures have been obtained on this patient for now. He had a multi- loculated right-sided pleural effusion for which were contemplating a IR guided tube insertion and with the above-mentioned events, I attended on this patient inserted the right-sided chest tube and immediately there was 1.3 L of fluid drained from the right lung which was serous and dark and yellowish and turbid. The subsequent chest x-ray was done showed adequate reexpansion of the right lung with some minimal residual effusion in the right lung base. There is a masslike consolidation in the right midlung. There is ongoing consolidation of the left perihilar area consistent with diffuse multilobar pneumonia. Currently the patient is on norepinephrine infusion which is running at 9 g per minute. The patient received IV fluids and currently is on a maintenance of 100 mL an hour of normal saline. the patient is currently sedated with propofol infusion. Not catheter was inserted. A triple lumen catheter was inserted. The renal function remains stable with a BUN of 8 and a creatinine of 0.4. Objective - Vital Signs Vital signs: Vital Signs Temp 99 F 05/19/19 04:00 Pulse 78 05/19/19 05:30 Resp 21 05/19/19 05:30 BP 120/77 05/19/19 05:30 Pulse Ox 98 05/19/19 05:30 Intake & Output 05/18/19 05/19/19 05/19/19 18:59 06:59 18:59 Intake Total 1867.522 Output Total 0 Balance 1867.522 Weight 65.1 kg Intake: IV 1400 Lactated Ringers 1,000 ml 1000 @ 100 mls/hr IV .Q10H [facility] Rx#:[id number] Levofloxacin 750Mg-D5w 150 Pmx 750 mg In Dextrose/ Water 1 150ml.bag @ 100 mls/hr IVPB Q24H [facility] Rx#: [id number] Vancomycin 1,250 mg In 250 Sodium Chloride 0.9% 250 ml @ 125 mls/hr IVPB Q12H [facility] Rx#:[id number] Intake, IV Titration 467.522 Amount Norepinephrine 4 mg In 367.522 Sodium Chloride 0.9% 250 ml @ 0.05 MCG/KG/MIN 11. 925 mls/hr IV .[id number] [facility] Rx#:[id number] Propofol 1,000 mg In 100.000 Empty Bag 1 bag @ Titrate IV .Q0M [facility] Rx#: [id number] Output: Urine 0 Other: # Voids 2 1 ABP, PAP, CO, CI - Last Documented Arterial Blood Pressure 132/71 - Exam Patient is intubated on a mechanical ventilator. Orogastric and orotracheal tube are both in place. Head exam was generally normal. There was no scleral icterus or corneal arcus. Mucous membranes were moist. Neck was supple and without jugular venous distension, thyromegaly, or carotid bruits. Carotids were easily palpable bilaterally. There was no adenopathy. The patient has a right IJ triple-lumen catheter. Lungs sounds are diminished in the right compared to the left. There is a right-sided chest tube in place. Breath sounds show scattered rhonchi and crackles in the right lung and on the left. No significant wheezes appreciated. Cardiac exam revealed the PMI to be normally situated and sized. The rhythm was regular and no extrasystoles were noted during several minutes of auscultation. The first and second heart sounds were normal and physiologic splitting of the second heart sound was noted. There were no murmurs, rubs, clicks, or gallops. Abdominal exam revealed normal bowel sounds. The abdomen was soft, non-tender, and without masses, organomegaly, or appreciable enlargement of the abdominal aorta. Examination of the extremities revealed easily palpable radial, femoral and pedal pulses. There was no cyanosis, clubbing or edema. Examination of the skin revealed no evidence of significant rashes, suspicious appearing nevi or other concerning lesions. Neurologically the patient is sedated and calm and comfortable. - Labs CBC & Chem 7: 05/19/19 04:30 05/19/19 04:30 Labs: Abnormal Lab Results - Last 24 Hours (Table) 05/18/19 05/18/19 05/18/19 Range/Units 05:31 05:31 18:40 WBC 22.6 H (3.8-10.6) k/uL RBC 3.13 L (4.30-5.90) m/uL Hgb 9.8 L D (13.0-17.5) gm/dL Hct 29.4 L (39.0-53.0) % Neutrophils # 19.4 H (1.3-7.7) k/uL Neutrophils # (Manual) (1.3-7.7) k/uL Lymphocytes # 0.8 L (1.0-4.8) k/uL Lymphocytes # (Manual) (1.0-4.8) k/uL Monocytes # 1.9 H (0-1.0) k/uL Monocytes # (Manual) (0-1.0) k/uL ABG pCO2 46 H (35-45) mmHg ABG pO2 50 L* (83-108) mmHg ABG HCO3 29 H (21-25) mmol/L ABG Total CO2 31 H (19-24) mmol/L ABG O2 Saturation 86.2 L (94-97) % Sodium 132 L (137-145) mmol/L BUN 8 L (9-20) mg/dL Creatinine 0.54 L (0.66-1.25) mg/dL Glucose (74-99) mg/dL POC Glucose (mg/dL) (75-99) mg/dL Calcium 7.7 L (8.4-10.2) mg/dL 05/18/19 05/19/19 05/19/19 Range/Units 20:00 04:20 04:30 WBC (3.8-10.6) k/uL RBC (4.30-5.90) m/uL Hgb (13.0-17.5) gm/dL Hct (39.0-53.0) % Neutrophils # (1.3-7.7) k/uL Neutrophils # (Manual) (1.3-7.7) k/uL Lymphocytes # (1.0-4.8) k/uL Lymphocytes # (Manual) (1.0-4.8) k/uL Monocytes # (0-1.0) k/uL Monocytes # (Manual) (0-1.0) k/uL ABG pCO2 51 H (35-45) mmHg ABG pO2 (83-108) mmHg ABG HCO3 30 H (21-25) mmol/L ABG Total CO2 32 H (19-24) mmol/L ABG O2 Saturation (94-97) % Sodium 134 L (137-145) mmol/L BUN 8 L (9-20) mg/dL Creatinine 0.45 L (0.66-1.25) mg/dL Glucose 154 H (74-99) mg/dL POC Glucose (mg/dL) 162 H (75-99) mg/dL Calcium 8.1 L (8.4-10.2) mg/dL 05/19/19 Range/Units 04:30 WBC 35.0 H (3.8-10.6) k/uL RBC 3.49 L (4.30-5.90) m/uL Hgb 10.9 L (13.0-17.5) gm/dL Hct 32.6 L (39.0-53.0) % Neutrophils # (1.3-7.7) k/uL Neutrophils # (Manual) 31.85 H (1.3-7.7) k/uL Lymphocytes # (1.0-4.8) k/uL Lymphocytes # (Manual) 0.70 L (1.0-4.8) k/uL Monocytes # (0-1.0) k/uL Monocytes # (Manual) 2.45 H (0-1.0) k/uL ABG pCO2 (35-45) mmHg ABG pO2 (83-108) mmHg ABG HCO3 (21-25) mmol/L ABG Total CO2 (19-24) mmol/L ABG O2 Saturation (94-97) % Sodium (137-145) mmol/L BUN (9-20) mg/dL Creatinine (0.66-1.25) mg/dL Glucose (74-99) mg/dL POC Glucose (mg/dL) (75-99) mg/dL Calcium (8.4-10.2) mg/dL Microbiology - Last 24 Hours (Table) 05/16/19 18:43 Blood Culture - Preliminary Blood No Growth after 48 hours Assessment and Plan Plan: #1 diffuse multilobar pneumonia along with multiloculated right-sided pleural effusion post chest right-sided chest tube insertion. Microbiology is not available at the cultures of been negative. A total of 1.3 L of fluid was aspirated from the right lung. There is extension of the right lung is adequate for now. The chest tubes in place and is still draining. No evidence of any air leak. His antibiotics were modified to a combination of Merrem and vancomycin. The patient is in sepsis secondary to multilobar pneumonia and he is hypotensive currently on low-dose pressors.. #2. Hypoxic respiratory failure, post intubation mechanical ventilation. Patient has a right-sided chest tube in place. #3 sepsis secondary to pneumonia. The patient is hypotensive currently on pressors in addition to broad-spectrum antibiotics. Fluids are running at 100 mL an hour. #4 leukocytosis secondary to above. #5 Bipolar disorder. #6 Schizophrenia. #7 History of head injury. #8 History of compartment syndrome of the left lower extremity. #9 Chronic obstructive pulmonary disease. #10 Chronic and ongoing tobacco dependence. Plan Keep the patient intubated on a mechanical ventilator. Repeat the blood gas and the necessity vent changes. May need a bronchoscopy for microbial analysis and hopefully this will establish some bacterial cultures that carrying guide our antibiotics. Keep the chest tube in place. Monitor the output. Send the pleural fluid for Gram stain and culture and cytology. Cover the patient with a combination of Merrem and vancomycin and Levaquin. Continue pressors. Continue hemodynamic support. Monitor CVP. Condition is critical. Prognosis poor baseline above-mentioned comorbidities. We'll continue to follow make further recommendations as the patient progresses during the day. This is a critically care evaluation that was done and more than 30 minutes. Time with Patient: Greater than 30
--- NOTE | 2019-05-19 07:24 | P.PCN ---
Date of Procedure: 05/19/19 Preoperative Diagnosis: Right-sided multiloculated pleural effusion/pneumonia Postoperative Diagnosis: Right-sided multi loculated pleural effusion/pneumonia Procedure(s) Performed: Right-sided chest tube insertion Anesthesia: local Surgeon: Farhat Rai Estimated Blood Loss (ml): 0 Pathology: other Condition: critical Disposition: ICU Operative Findings: This procedure was done and the intensive care unit. The right chest was cleaned using ChloraPrep. The right arm was stretched and placed behind the head. The right chest was exposed. At the level of the mid axillary line and around 2 cm below the lip line, the skin was intubated at 1% lidocaine. Following that, a horizontal incision was done and there is some dizziness tissue was dissected. The intercostal space was identified. The forceps was introduced into the intercostal space and a gush of fluid was obtained indicating that the forces was within the pleural space. At that point, introduced my index finger and palpated the pleural space and intercostal space. I was able to insert a 28-Anguillan chest tube using a trocar into the right hemithorax and a total of 1.3 L of fluid was aspirated from the right lung immediately and the fluid was advanced to a Pleur-evac. The position of the tube was confirmed by a chest x-ray. The tube was secured using a 0.0 Ethibond suture. The chest tube was attached to Pleur-evac. No evidence of any air leak. No complications. Appropriate dressing was applied. Procedure was done without any Medication. The patient remained hemodynamically stable throughout the procedure.
--- NOTE | 2019-05-19 07:28 | P.PCN ---
Date of Procedure: 05/19/19 Preoperative Diagnosis: Pneumonia and sepsis and hypotension Postoperative Diagnosis: Pneumonia/sepsis/hypotension Procedure(s) Performed: Triple-lumen catheter insertion Anesthesia: local Surgeon: Farhat Rai Estimated Blood Loss (ml): 0 Pathology: none sent Condition: critical Disposition: ICU Operative Findings: Procedure was under sterile technique. The patient was already intubated on a mechanical ventilator. The right chest area was cleaned using ChloraPrep. Lid ocaine 1% was used and aside the surrounding skin area. A triple lumen 9-[place] Cordis catheter was introduced into the right subclavian vein using the Seldinger technique. The catheter was threaded smoothly over the guidewire and appropriate blood return was obtained. Each lumen of the catheter was evacuated of air and flushed with sterile saline. The catheter was then sutured in place and sterile dressing was applied. No bedside complications. Chest x-rays to follow to rule out any pneumothorax. A timeout was obtained verifying the patient and the procedure and the site and the positioning and the procedure was completed. The chest x-rays to follow. No bedside complications. No bedside bleeding.
--- NOTE | 2019-05-19 07:39 | XR ---
EXAMINATION TYPE: XR chest 1V portable DATE OF EXAM: 05/19/2019 COMPARISON: 05/19/2019 6:46 AM HISTORY: Chest tube placement and shortness of breath. TECHNIQUE: Single frontal view of the chest is obtained. FINDINGS: The exam is overall unchanged from the prior of the same date less than 1 hour before this acquired exam other than a newly placed right subclavian approach central venous catheter terminatin g in the high right atrium. Again there is cephalad placement of the enteric and endotracheal tubes. Right-sided pleural effusion, bilateral pulmonary edema, masslike right hilar consolidation, and righ t thoracostomy tube are similar. IMPRESSION: Newly placed right subclavian approach central venous catheter terminating in the high r ight atrium. Again recommendation is for advancement of the endotracheal and enteric tubes.
--- NOTE | 2019-05-19 07:45 | XR ---
EXAMINATION TYPE: XR chest 1V portable DATE OF EXAM: 05/19/2019 COMPARISON: 05/19/2019 HISTORY: Shortness of breath. Follow-up exam. TECHNIQUE: Single frontal view of the chest is obtained. FINDINGS: Large right pleural effusion, masslike right hilar consolidation, right hemithorax volume loss, and moderate to severe interstitial pulmonary edema most confluent in the left central lung. En teric and endotracheal tubes are cephalad in position and should be advanced 9 to 10 cm and 4 cm resp ectively. No acute osseous pathology. IMPRESSION: Large right pleural effusion and moderate to severe pulmonary vascular congestion. Cepha lad placement of the endotracheal and enteric tubes.
[2019-05-19] MEDS: IPRATROPIUM-ALBUTEROL 3 ML NEB INHALATION SCH ×4 (07:57→19:14)
[2019-05-19] MEDS: PANTOPRAZOLE 40 MG/10 ML VIAL IV SCH (09:13)
[2019-05-19] MEDS: ENOXAPARIN 40 MG/0.4 ML SYRINGE SQ SCH (09:13)
[2019-05-19] MEDS: CHLORHEXIDINE GLUCONATE 15 ML CUP MUCOUS MEM SCH ×2 (09:13→21:47)
[2019-05-19] MEDS: VANCOMYCIN 1,250 MG in SODIUM CHLORIDE 0.9% 250 ML IVPB SCH (09:49)
[2019-05-19] MEDS: Buprenorphine Hcl [Subutex] 8 MG SUBLINGUAL SCH ×3 (10:02→17:38)
[2019-05-19] MEDS: NICOTINE 21MG/24HR PATCH TRANSDERM SCH (10:10)
--- NOTE | 2019-05-19 10:36 | ECHOF ---
Referral Reason:hypotension MEASUREMENTS -------- HEIGHT: 172.7 cm WEIGHT: 62.6 kg BP: 120/77 RVIDd: 3.4 cm (< 3.3) IVSd: 0.9 cm (0.6 - 1.1) LVIDd: 3.4 cm (3.9 - 5.3) LVPWd: 0.8 cm (0.6 - 1.1) IVSs: 1.2 cm LVIDs: 2.5 cm LVPWs: 1.2 cm LA Diam: 2.9 cm (2.7 - 3.8) Ao Diam: 3.0 cm (2.0 - 3.7) AV Cusp: 1.9 cm (1.5 - 2.6) MV EXCURSION: 20.868 mm (> 18.000) MV EF SLOPE: 118 mm/s (70 - 150) EPSS: 0.3 cm MV E Vladimir: 0.57 m/s MV A Vladimir: 0.85 m/s MV E/A Ratio: 0.67 RAP: 5.00 mmHg RVSP: 57.75 mmHg FINDINGS -------- Sinus rhythm. Resting tachycardia (HR>100bpm). This was a technically adequate study. LV size, wall thickness and systolic function are normal, with an EF greater than 55%. The left jaleel tricular size is normal. The right ventricle is moderate to severely enlarged. The left atrial size is normal. The right atrial size is normal. There is mild aortic valve sclerosis. Mild mitral annular calcification present. Mild mitral regurgitation is present. Moderate to severe tricuspid regurgitation present. There is moderate pulmonary hypertension. The right ventricular systolic pressure, as measured by Doppler, is 57.75mmHg. Trace/mild (physiologic) pulmonic regurgitation. The aortic root size is normal. There is no pericardial effusion. CONCLUSIONS -------- 1. Sinus rhythm. 2. Resting tachycardia (HR>100bpm). 3. This was a technically adequate study. 4. LV size, wall thickness and systolic function are normal, with an EF greater than 55%. 5. The left ventricular size is normal. 6. The right ventricle is moderate to severely enlarged. 7. The left atrial size is normal. 8. There is mild aortic valve sclerosis. 9. Mild mitral annular calcification present. 10. Mild mitral regurgitation is present. 11. Moderate to severe tricuspid regurgitation present. 12. There is moderate pulmonary hypertension. 13. Trace/mild (physiologic) pulmonic regurgitation. 14. The aortic root size is normal. 15. There is no pericardial effusion. ALARM INVESTIGATOR: Christine Davenport RDCS
--- NOTE | 2019-05-19 10:48 | P.PN ---
Subjective Progress Note Date: 05/19/19 Principal diagnosis: This is a 54-year-old gentleman who is followed by Dr. Srinivasan on an outpatient basis. His past medical history significant for chronic obstructive pulmonary disease, chronic and ongoing tobacco dependence, history of closed head injury, bipolar disorder, paranoid schizophrenia, narcotic and illicit drug use. The patient presented to [facility] emergency department via EMS with altered mental status, fever and right-sided chest pain. In the emergency department he was found to be febrile with a temperature of 101.1F, his initial lab results showed a white blood cell count of 28.5 and a lactic acid level of 1.1. A urine drug screen was also completed which was positive for benzodiazepine and tricyclic antidepressants. Subsequently a chest x-ray was completed which showed him to have a right pleural effusion with right lower lobe consolidation. For further evaluation a computed tomography scan of his chest was completed which demonstrated a right-sided loculated pleural effusion with thick rind. Subsequently the patient was admitted to the hospital for further workup and evaluation. Dr. Hatch from cardiothoracic surgery was consulted yesterday for further treatment and surgical recommendations. The patient was seen and examined in the intensive care unit this morning. According to the patient's nurse, the patient decompensated yesterday evening and was subsequently transferred to the cardiac stepdown unit, he continued to decompensate with his respiratory status requiring 15 L of oxygen and was transferred to the intensive care unit. The patient was subsequently intubated with mechanical ventilator support. He remains intubated with mechanical ventilator support this morning with his mechanical ventilator settings as follows, assist-control 20, TV 500, FiO2 80%, PEEP 12. ABG results this morning show a pH of 7.36, pCO2 51, pO2 83, HCO3 30, O2 saturation 96.2 and a base excess of 5.1. He is currently sedated with propofol drip at 60 mcg/kg/m and is still following some verbal commands appropriately. A chest x-ray was completed this morning around 1 AM which showed him to have a large right pleural effusion. Dr. Rai from pulmonary and critical care placed a right-sided thoracostomy tube with 1.1 L of serous colored pleural fluid drained. Post right-sided chest tube insertion chest x-ray was completed which demonstrated a newly placed right subclavian central venous catheter, extensive multifocal interstitial and alveolar opacities on the left, adequate reexpansion and an imp roved right pleural effusion. The patient was also hypotensive this morning and was started on a norepinephrine drip at 4 mcg/m. Lab results this morning show a WBC count 35.0, Hgb 10.9, BUN 8, creatinine 0.45. Blood cultures have been sent and the preliminary result showed no growth after 48 hours. He remains on IV antibiotics Levaquin, vancomycin and Zosyn. His T-max temperature in the last 24 hours is 101.3F. Maintenance fluids remained infusing at 100 mL an hour of lactated Ringer's. Objective - Vital Signs Vital signs: Vital Signs Temp 99 F 05/19/19 04:00 Pulse 112 H 05/19/19 08:11 Resp 21 05/19/19 05:30 BP 120/77 05/19/19 05:30 Pulse Ox 98 05/19/19 05:30 Intake & Output 05/18/19 05/19/19 05/19/19 18:59 06:59 18:59 Intake Total 1867.522 Output Total 0 Balance 1867.522 Weight 65.1 kg Intake: IV 1400 Lactated Ringers 1,000 ml 1000 @ 100 mls/hr IV .Q10H [facility] Rx#:[id number] Levofloxacin 750Mg-D5w 150 Pmx 750 mg In Dextrose/ Water 1 150ml.bag @ 100 mls/hr IVPB Q24H [facility] Rx#: [id number] Vancomycin 1,250 mg In 250 Sodium Chloride 0.9% 250 ml @ 125 mls/hr IVPB Q12H [facility] Rx#:[id number] Intake, IV Titration 467.522 Amount Norepinephrine 4 mg In 367.522 Sodium Chloride 0.9% 250 ml @ 0.05 MCG/KG/MIN 11. 925 mls/hr IV .[id number] [facility] Rx#:[id number] Propofol 1,000 mg In 100.000 Empty Bag 1 bag @ Titrate IV .Q0M [facility] Rx#: [id number] Output: Urine 0 Other: # Voids 2 1 ABP, PAP, CO, CI - Last Documented Arterial Blood Pressure 132/71 - Constitutional Constitutional Comment(s): Currently sedated on propofol drip, remains with episodes of agitation and restlessness. Follows some commands appropriately. - Respiratory Details: Lung sounds diminished to his bilateral bases right greater than left. Few scattered crackles and rhonchi. No wheezing. Respirations are symmetrical and nonlabored with mechanical ventilator support. Right pleural chest tube to low continuous wall suction at -20 cm H2O. 1.1 L of serous colored drainage. No air leak is present. - Cardiovascular Details: Regular rhythm with tachycardic rate. S1 and S2 present, negative for S3, gallop or murmur. No edema present. Bedside telemetry showing sinus tachycardia heart rate 103. Knee-high sequential compression devices in place to his bilateral lower extremities. Right subclavian IJ in place and functioning. - Gastrointestinal Gastrointestinal Comment(s): Abdomen soft, nontender and nondistended. Active bowel sounds present all 4 abdominal quadrants. OG tube in place to low intermittent wall suction. No guarding or rigidity. No organomegaly appreciated. - Genitourinary Genitourinary Comment(s): Cespedes catheter for accurate I&O. Draining clear yellow urine. - Integumentary Integumentary Comment(s): Skin is warm and dry. No clubbing or cyanosis is present. No rash or abnormal pigmentation is present. - Neurologic Neurologic Comment(s): Sedated on propofol drip. Neurologic: Present: CNII-XII intact - Musculoskeletal Musculoskeletal: Present: generalized weakness, strength equal bilaterally - Psychiatric Psychiatric Comment(s): Sedated on propofol drip. - Labs CBC & Chem 7: 05/19/19 04:30 05/19/19 04:30 Labs: Abnormal Lab Results - Last 24 Hours (Table) 05/18/19 05/18/19 05/19/19 Range/Units 18:40 20:00 04:20 WBC (3.8-10.6) k/uL RBC (4.30-5.90) m/uL Hgb (13.0-17.5) gm/dL Hct (39.0-53.0) % Neutrophils # (Manual) (1.3-7.7) k/uL Lymphocytes # (Manual) (1.0-4.8) k/uL Monocytes # (Manual) (0-1.0) k/uL ABG pCO2 46 H 51 H (35-45) mmHg ABG pO2 50 L* (83-108) mmHg ABG HCO3 29 H 30 H (21-25) mmol/L ABG Total CO2 31 H 32 H (19-24) mmol/L ABG O2 Saturation 86.2 L (94-97) % Sodium (137-145) mmol/L BUN (9-20) mg/dL Creatinine (0.66-1.25) mg/dL Glucose (74-99) mg/dL POC Glucose (mg/dL) 162 H (75-99) mg/dL Calcium (8.4-10.2) mg/dL 05/19/19 05/19/19 Range/Units 04:30 04:30 WBC 35.0 H (3.8-10.6) k/uL RBC 3.49 L (4.30-5.90) m/uL Hgb 10.9 L (13.0-17.5) gm/dL Hct 32.6 L (39.0-53.0) % Neutrophils # (Manual) 31.85 H (1.3-7.7) k/uL Lymphocytes # (Manual) 0.70 L (1.0-4.8) k/uL Monocytes # (Manual) 2.45 H (0-1.0) k/uL ABG pCO2 (35-45) mmHg ABG pO2 (83-108) mmHg ABG HCO3 (21-25) mmol/L ABG Total CO2 (19-24) mmol/L ABG O2 Saturation (94-97) % Sodium 134 L (137-145) mmol/L BUN 8 L (9-20) mg/dL Creatinine 0.45 L (0.66-1.25) mg/dL Glucose 154 H (74-99) mg/dL POC Glucose (mg/dL) (75-99) mg/dL Calcium 8.1 L (8.4-10.2) mg/dL Microbiology - Last 24 Hours (Table) 05/16/19 18:43 Blood Culture - Preliminary Blood No Growth after 48 hours - Imaging and Cardiology Chest x-ray: report reviewed, image reviewed Assessment and Plan Assessment: 1. Hypoxic respiratory failure, post intubation mechanical ventilation 2. Right loculated pleural effusion, status post right-sided chest tube placement 3. Sepsis secondary to multilobar pneumonia 4. Leukocytosis, secondary to above 5. Hypotension requiring norepinephrine support 6. Chronic and ongoing tobacco dependence 7. Chronic obstructive pulmonary disease 8. Paranoid schizophrenia 9. Bipolar disorder 10. History of closed head injury 11. History of compartment syndrome of the left lower extremity Plan: 1. Keep right-sided pleural chest tube to low continuous wall suction -20 cm H2O. Accurate I&O. 2. Mechanical ventilator, bronchodilators and corticosteroids management per pulmonary and critical care management. 3. Antibiotic management per pulmonary medicine. 4. Continue to monitor daily labs and chest x-rays. 5. DVT and GI prophylaxis. 6. Other comorbidities management per primary care service. 7. More recommendations to follow based on patient's clinical course. Time with Patient: Greater than 30
[2019-05-19] MEDS: INSULIN ASPART (NovoLOG) 100 UNIT/ML VIAL SQ SCH ×2 (11:55→18:17)
[2019-05-19 12:05] LABS: Glucose,Whole Blood 181 mg/dL (75-99)
--- NOTE | 2019-05-19 13:40 | P.PN ---
Subjective Progress Note Date: 05/19/19 Principal diagnosis: Acute hypoxic respiratory failure secondary to multilobar pneumonia and right- sided loculated pleural effusion. This is a 54-year-old gentleman who follows with Dr. Srinivasan as his primary care physician. He has a history of bipolar disorder, closed head injury, schizophrenia, compartment syndrome of the left lower extremity, COPD, chronic and ongoing tobacco dependence. He presented to the emergency room yesterday with altered mental status and fever. The patient himself is a poor historian. He was refusing to give much information. He did feel as though he was withdrawing from benzodiazepines. Urine drug screen was positive for tricyclic antidepressants and benzodiazepines. Chest x-ray showed a new right pleural effusion and right lower lobe consolidation. White count 28.5. Hemoglobin 12.1. Creatinine 0.81. Influenza screen negative. Initial temp 101.1. He is admitted for suspected pneumonia. He is seen today in consultation on the regular medical floor. He is currently awake. He is a poor historian. Unable to give much information. Does complain of right sided chest p ain and pain with inhalation and coughing. He's maintaining O2 saturation in the low 90s on 2 L/m per nasal cannula. He's been afebrile. Somewhat tac hycardic. His been initiated on Zosyn and Levaquin. Lactated Ringer's at 125 ML's per hour. On 05/18/2019 the patient is doing well stable and is hemodynamic stable and afebrile. Still on today's of oxygen by nasal cannula pulse ox is 93%. CAT scan results were noted. Consult was placed for interventional radiology regarding a percutaneous predicted catheter insertion. The patient remains on a combination of antibiotics including Zosyn and Levaquin and vancomycin. The blood cultures negative. Reevaluated today on 05/19/2019, patient was already seen earlier by Dr. Rai, and he placed a right sided chest tube for his worsening right-sided pleural effusion. Patient is now on mechanical ventilation with assist control rate of 20 FiO2 of 50% PEEP of 12 tidal volume of 500. ABG this morning showed a pO2 of 83 pCO2 of 51 pH of 7.38 patient was earlier on 100% FiO2 and high PEEP prior to placement of the chest tube. Over 1500 mL of serosanguineous fluid removed from the right pleural space, results on the fluid are pending. Patient's brother is at bedside, and I updated the brother on his condition. Patient is hemodynamically stable, he is also on propofol, not requiring any pressors at this point. I was able to cut down the FiO2 to 50%, and kept him on a PEEP of 12. His peak airway pressure is in the high 20s, plateau pressure is 23 Objective - Vital Signs Vital signs: Vital Signs Temp 98.7 F 05/19/19 08:00 Pulse 96 05/19/19 11:54 Resp 20 05/19/19 11:30 BP 94/67 05/19/19 11:30 Pulse Ox 98 05/19/19 11:30 Intake & Output 05/18/19 05/19/19 05/19/19 18:59 06:59 18:59 Intake Total 1967.522 600 Output Total 0 2475 Balance 1967.522 -1875 Weight 65.1 kg Intake: IV 1500 500 Lactated Ringers 1,000 ml 1100 500 @ 100 mls/hr IV .Q10H [facility] Rx#:[id number] Levofloxacin 750Mg-D5w 150 Pmx 750 mg In Dextrose/ Water 1 150ml.bag @ 100 mls/hr IVPB Q24H [facility] Rx#: [id number] Piperacillin-Tazobactam 3 0 .375 gm In Sodium Chloride 0.9% 100 ml @ 25 mls/hr IVPB Q8HR [facility] Rx# :[id number] Vancomycin 1,250 mg In 250 Sodium Chloride 0.9% 250 ml @ 125 mls/hr IVPB Q12H [facility] Rx#:[id number] Intake, IV Titration 467.522 100 Amount Norepinephrine 4 mg In 367.522 Sodium Chloride 0.9% 250 ml @ 0.05 MCG/KG/MIN 11. 925 mls/hr IV .[id number] [facility] Rx#:[id number] Propofol 1,000 mg In 100.000 100 Empty Bag 1 bag @ Titrate IV .Q0M [facility] Rx#: [id number] Output: Chest Tube Drainage 1150 Chest Tube Right Lateral 1150 Chest Urine 0 1325 Other: Voiding Method Diaper # Voids 2 1 ABP, PAP, CO, CI - Last Documented Arterial Blood Pressure 104/57 - Exam Physical Exam: Revealed a 54-year-old white male on mechanical ventilation, sedated. Head: Atraumatic, normocephalic. HEENT:[Neck is supple.] [No neck masses.] [No thyromegaly.] [No JVD.] Moist mucous membranes, endotracheal tube and orogastric tube are intact. Chest: [Symmetrical chest expansion, right-sided chest tube is noted, crackles at the bases, no rhonchi, no wheezes.] Cardiac Exam: [Normal S1 and S2, no S3 gallop, no murmur.] Abdomen: [Soft, nontender, no megaly, no rebound, no guarding, normal bowel sounds.] Extremities: [No clubbing, no edema, no cyanosis.] Neurological Exam: Not be assessed, patient is fully sedated. Psychiatric could not be assessed. Skin: No rashes. - Labs CBC & Chem 7: 05/19/19 04:30 05/19/19 04:30 Labs: Abnormal Lab Results - Last 24 Hours (Table) 05/18/19 05/18/19 05/19/19 Range/Units 18:40 20:00 04:20 WBC (3.8-10.6) k/uL RBC (4.30-5.90) m/uL Hgb (13.0-17.5) gm/dL Hct (39.0-53.0) % Neutrophils # (Manual) (1.3-7.7) k/uL Lymphocytes # (Manual) (1.0-4.8) k/uL Monocytes # (Manual) (0-1.0) k/uL ABG pCO2 46 H 51 H (35-45) mmHg ABG pO2 50 L* (83-108) mmHg ABG HCO3 29 H 30 H (21-25) mmol/L ABG Total CO2 31 H 32 H (19-24) mmol/L ABG O2 Saturation 86.2 L (94-97) % Sodium (137-145) mmol/L BUN (9-20) mg/dL Creatinine (0.66-1.25) mg/dL Glucose (74-99) mg/dL POC Glucose (mg/dL) 162 H (75-99) mg/dL Calcium (8.4-10.2) mg/dL 05/19/19 05/19/19 05/19/19 Range/Units 04:30 04:30 11:48 WBC 35.0 H (3.8-10.6) k/uL RBC 3.49 L (4.30-5.90) m/uL Hgb 10.9 L (13.0-17.5) gm/dL Hct 32.6 L (39.0-53.0) % Neutrophils # (Manual) 31.85 H (1.3-7.7) k/uL Lymphocytes # (Manual) 0.70 L (1.0-4.8) k/uL Monocytes # (Manual) 2.45 H (0-1.0) k/uL ABG pCO2 (35-45) mmHg ABG pO2 (83-108) mmHg ABG HCO3 (21-25) mmol/L ABG Total CO2 (19-24) mmol/L ABG O2 Saturation (94-97) % Sodium 134 L (137-145) mmol/L BUN 8 L (9-20) mg/dL Creatinine 0.45 L (0.66-1.25) mg/dL Glucose 154 H (74-99) mg/dL POC Glucose (mg/dL) 181 H (75-99) mg/dL Calcium 8.1 L (8.4-10.2) mg/dL Microbiology - Last 24 Hours (Table) 05/19/19 00:25 Sputum Culture - Preliminary Sputum 05/16/19 18:43 Blood Culture - Preliminary Blood No Growth after 48 hours Assessment and Plan Assessment: Impression: 1 acute hypoxic respiratory failure requiring intubation and mechanical ventilation. This is secondary to multilobar pneumonia and possible complicated right-sided pleural effusion. 2 sepsis secondary to pneumonia 3 history of multiple comorbidities including bipolar disorder, schizophrenia, and history of head injury 4 history of compartment syndrome of the left lower extremity 5 underlying COPD severity of which is unclear. 6 chronic and ongoing tobacco dependence syndrome. Recommendation: Continue mechanical ventilation, ventilator settings were addressed accordingly, a waiting for the culture from the pleural effusion flui d, may require bronchoscopy and lavage, this will be decided upon in the next 24 hours. Continue empiric antibiotics, patient is presently on Merrem and vancomycin and Levaquin use pressors if needed, continue hemodynamic support, nutritional support, continue GI and DVT prophylaxis. Had a long discussion with his brother at bedside, patient is obviously critically ill, and prognosis is extremely poor and guarded. Critical care time is 34 minutes Time with Patient: Greater than 30
--- NOTE | 2019-05-19 14:12 | P.GSCN ---
History of Present Illness Consult date: 05/19/19 Reason for Consult: Urinary retention/Durán placement History of present illness: Mr. Long is 54 yo male admitted with cough, fever and AMS. On evaluation he was intubated and sedated. On evaluation he had elevated PVR at 200 mL. Durán catheter was needed for elevated PVR and accurate I/O. No known hx of urinary retention of surgeries. Durán catheter was attempted by nursing, but resistance was met. Urology was consulted for durán placement. Review of Systems ROS unobtainable: due to endotracheal tube, due to mental status Past Medical History Past Medical History: COPD Additional Past Medical History / Comment(s): compartment syndrome to left lower leg, GI upset, NEUROPATHY. per old hx 2010- closed head injury 2006, recent fall-scabbed area to forehead. History of Any Multi-Drug Resistant Organisms: MRSA Year Discovered:: ?2010 h&p MDRO Source:: no source provided Past Surgical History: Back Surgery Additional Past Surgical History / Comment(s): Surgery on Left Lower Leg for Compartment Syndrome November 2010, lt leg debridment had non healing wound/wound vac 2010- per old 2010 hx mrsa listed but no date or source.sinus sx. Past Anesthesia/Blood Transfusion Reactions: No Reported Reaction Past Psychological History: ADD/ADHD, Anxiety, Bipolar, Depression, Schizophrenia Additional Psychological History / Comment(s): poor historian. Smoking Status: Current every day smoker Past Alcohol Use History: None Reported Additional Past Alcohol Use History / Comment(s): 2 ppd x 32 years Past Drug Use History: None Reported Additional Drug Use History / Comment(s): Percocet and Xanax also per old 2010 h&p used heroin, ecstacy, amphetamines, benzodiazepines - Past Family History Father Family Medical History: Myocardial Infarction ([place]) Additional Family Medical History / Comment(s): ETOH abuse, Cardiac Arrest at the age of 60 withdrawing from ETOH Mother Family Medical History: Congestive Heart Failure (CHF), Hypertension Additional Family Medical History / Comment(s): Breast Cancer that spread to the lymph nodes Medications and Allergies Home Medications Medication Instructions Recorded Confirmed Type ARIPiprazole [Abilify] 10 mg PO DAILY 04/27/19 05/16/19 History Buprenorphine HCl [Subutex] 8 mg SUBLINGUAL AC-TID 04/27/19 05/16/19 History Doxepin HCl [SINEquan] 150 mg PO HS 04/27/19 05/16/19 History Gabapentin 600 mg PO TID 04/27/19 05/16/19 History busPIRone HCl [Buspar] 10 mg PO BID 04/27/19 05/16/19 History Baclofen [Lioresal] 20 mg PO Q6H PRN 05/16/19 05/16/19 History Allergies Allergy/AdvReac Type Severity Reaction Status Date / Time Fish Containing Products Allergy Unknown Verified 05/16/19 16:41 [Fish] ibuprofen [From Motrin] Allergy Unknown Verified 05/16/19 16:41 Surgical - Exam Vital Signs Temp Pulse Resp BP Pulse Ox 101.1 F H 101 H 18 110/65 90 L 05/16/19 16:20 05/16/19 16:20 05/16/19 16:20 05/16/19 16:20 05/16/19 16:20 - General intubated/Sedated - Abdomen Abdomen: soft, non tender - Genitourinary normal penis with no external lesions, testicles present Results - Labs 05/19/19 04:30 05/19/19 04:30 Abnormal Lab Results - Last 24 Hours (Table) 05/18/19 05/18/19 05/19/19 Range/Units 18:40 20:00 04:20 WBC (3.8-10.6) k/uL RBC (4.30-5.90) m/uL Hgb (13.0-17.5) gm/dL Hct (39.0-53.0) % Neutrophils # (Manual) (1.3-7.7) k/uL Lymphocytes # (Manual) (1.0-4.8) k/uL Monocytes # (Manual) (0-1.0) k/uL ABG pCO2 46 H 51 H (35-45) mmHg ABG pO2 50 L* (83-108) mmHg ABG HCO3 29 H 30 H (21-25) mmol/L ABG Total CO2 31 H 32 H (19-24) mmol/L ABG O2 Saturation 86.2 L (94-97) % Sodium (137-145) mmol/L BUN (9-20) mg/dL Creatinine (0.66-1.25) mg/dL Glucose (74-99) mg/dL POC Glucose (mg/dL) 162 H (75-99) mg/dL Calcium (8.4-10.2) mg/dL 05/19/19 05/19/19 05/19/19 Range/Units 04:30 04:30 11:48 WBC 35.0 H (3.8-10.6) k/uL RBC 3.49 L (4.30-5.90) m/uL Hgb 10.9 L (13.0-17.5) gm/dL Hct 32.6 L (39.0-53.0) % Neutrophils # (Manual) 31.85 H (1.3-7.7) k/uL Lymphocytes # (Manual) 0.70 L (1.0-4.8) k/uL Monocytes # (Manual) 2.45 H (0-1.0) k/uL ABG pCO2 (35-45) mmHg ABG pO2 (83-108) mmHg ABG HCO3 (21-25) mmol/L ABG Total CO2 (19-24) mmol/L ABG O2 Saturation (94-97) % Sodium 134 L (137-145) mmol/L BUN 8 L (9-20) mg/dL Creatinine 0.45 L (0.66-1.25) mg/dL Glucose 154 H (74-99) mg/dL POC Glucose (mg/dL) 181 H (75-99) mg/dL Calcium 8.1 L (8.4-10.2) mg/dL Microbiology - Last 24 Hours (Table) 05/19/19 00:25 Sputum Culture - Preliminary Sputum 05/16/19 18:43 Blood Culture - Preliminary Blood No Growth after 48 hours Diabetes panel 05/19/19 Range/Units 04:30 Sodium 134 L (137-145) mmol/L Potassium 4.0 (3.5-5.1) mmol/L Chloride 100 (98-107) mmol/L Carbon Dioxide 30 (22-30) mmol/L BUN 8 L (9-20) mg/dL Creatinine 0.45 L (0.66-1.25) mg/dL Glucose 154 H (74-99) mg/dL Calcium 8.1 L (8.4-10.2) mg/dL Calcium panel 05/19/19 Range/Units 04:30 Calcium 8.1 L (8.4-10.2) mg/dL Pituitary panel 05/19/19 Range/Units 04:30 Sodium 134 L (137-145) mmol/L Potassium 4.0 (3.5-5.1) mmol/L Chloride 100 (98-107) mmol/L Carbon Dioxide 30 (22-30) mmol/L BUN 8 L (9-20) mg/dL Creatinine 0.45 L (0.66-1.25) mg/dL Glucose 154 H (74-99) mg/dL Calcium 8.1 L (8.4-10.2) mg/dL Adrenal panel 05/19/19 Range/Units 04:30 Sodium 134 L (137-145) mmol/L Potassium 4.0 (3.5-5.1) mmol/L Chloride 100 (98-107) mmol/L Carbon Dioxide 30 (22-30) mmol/L BUN 8 L (9-20) mg/dL Creatinine 0.45 L (0.66-1.25) mg/dL Glucose 154 H (74-99) mg/dL Calcium 8.1 L (8.4-10.2) mg/dL Assessment and Plan Assessment: 54 yo male admitted with AMS, fever. Attempted durán placement was unsuccessful by nursing, Urology Was consulted for durán placement. Plan: -18 Fr durán coude catheter was placed with moderate resistance at the prostate, durán can be d/c by primary team when it's no longer needed -F/U with Urology PRN
[2019-05-19 14:40] LABS: Appearance,Urine Clear (Clear); Bacteria,Urine Rare /hpf; Bilirubin,Urine Negative (Negative); Blood,Urine Negative (Negative); Color,Urine Yellow; Glucose,Urine (UA) Negative (Negative); Ketones,Urine Negative (Negative); Leukocyte Esterase,Urine Negative (Negative); Mucus,Urine Rare /hpf; Nitrite,Urine Negative (Negative); PH, Urine 6.5 (5.0-8.0); Protein,Urine 1+ (Negative); RBC,Urine 5 /hpf (0-5); Specific Gravity,Urine 1.038 (1.001-1.035); Squamous Epithelial Cell,Urine <1 /hpf (0-4); Urobilinogen,Urine <2.0 mg/dL (<2.0)
[2019-05-19] MEDS: NOREPINEPHRINE 32 MG in SODIUM CHLORIDE 0.9% 218 ML IV SCH (16:46)
[2019-05-19 17:26] LABS: Glucose,Whole Blood 196 mg/dL (75-99)
[2019-05-19 18:16] LABS: Appearance,BF Hazy; Color,BF Yellow; Nucleated Cells, Body Fluid 130 /uL; RBC, Body Fluid 3315 /uL
[2019-05-19 18:16] LABS: Glucose,Whole Blood 152 mg/dL (75-99)
[2019-05-19 18:33] LABS: Total Protein, Body Fluid 3900 mg/dL
--- NOTE | 2019-05-19 19:57 | P.PN ---
Progress Note - Text Progress Note Date: 05/19/19 Chief Complaint: Fever and congested Interval history: This is a 54-year-old patient of Dr. andino from [place]. Unable to get much of history from the patient as he mumbles then he remains quite. I gather from the ER notes that he apparently is homeless 2. Patient's history include closed head injury bipolar neuropathy COPD. Patient is an active smoker at least 2 packs a day. He did present to the ER stating that he is withdrawing from benzodiazepines and he is out of the same. He does follow with Dr. Rivero from out of the [facility]. Patient is very congested chronic cough so tired and is not able to expectorate. Having fever and tachycardia when initially presented. Was started on IV antibiotics. Pulmonary was consulted. Patient just about wakes up to speak that goes back to sleep. Patient was diagnosed to have severe pneumonia, parapneumonic effusion, sepsis, suspected empyema delirium, COPD exacerbation. Cardiothoracic surgery was consulted with a view to chest tube/thoracotomy Today-in the ICU. History being patient became more short of breath. Hypoxic. Was initially moved to the cardiac telemetry floor. Patient started going into respiratory distress. I was called and Dr. Rai was called. Eventually patient's moved to the ICU. Early this morning Dr. Rai put in a chest tube. About 1100 mL of fluid was obtained. Patient's been on the ventilator. FiO2 50% and PEEP of 12. Drips include levo fed and propofol. LR running at 100 mL an hour. Chest tube in place. To waterseal Review of systems: cannot be obtained as patient does. intubated Active Medications Acetaminophen (Tylenol Tab) 650 mg PO Q6HR PRN PRN Reason: Fever and/ or Pain Last Admin: 05/18/19 17:12 Dose: 650 mg Documented by: Albuterol/Ipratropium (Duoneb 0.5 Mg-3 Mg/3 Ml Soln) 3 ml INHALATION RT-QID [facility] Last Admin: 05/19/19 19:14 Dose: 3 ml Documented by: Aripiprazole (Abilify) 10 mg PO DAILY [facility] Last Admin: 05/19/19 10:11 Dose: 10 mg Documented by: Baclofen (Lioresal) 5 mg PO QID PRN PRN Reason: Muscle Spasm Buspirone HCl (Buspar) 10 mg PO BID [facility] Last Admin: 05/19/19 10:36 Dose: 10 mg Documented by: Chlorhexidine Gluconate (Peridex) 15 ml MUCOUS MEM BID [facility] Last Admin: 05/19/19 09:13 Dose: 15 ml Documented by: Diazepam (Valium) 5 mg IVP Q4H PRN PRN Reason: Seizures Doxepin HCl (Sinequan) 150 mg PO HS [facility] Last Admin: 05/19/19 01:11 Dose: Not Given Documented by: Enoxaparin Sodium (Lovenox) 40 mg SQ DAILY [facility] Last Admin: 05/19/19 09:13 Dose: 40 mg Documented by: Gabapentin (Neurontin) 600 mg PO TID [facility] Last Admin: 05/19/19 16:46 Dose: 600 mg Documented by: Levofloxacin 750 mg/ IV (Solution) 150 mls @ 100 mls/hr IVPB Q24H [facility] Stop: 05/29/19 19:31 Last Admin: 05/18/19 21:50 Dose: 100 mls/hr Documented by: Piperacillin Sod/Tazobactam (Sod 3.375 gm/ Sodium Chloride) 100 mls @ 25 mls/hr IVPB Q8HR [facility] Stop: 05/27/19 08:01 Last Admin: 05/19/19 16:47 Dose: 25 mls/hr Documented by: Lactated Ringer's (Lactated Ringers) 1,000 mls @ 100 mls/hr IV .Q10H [facility] Last Admin: 05/19/19 16:47 Dose: 100 mls/hr Documented by: Propofol 1,000 mg/ IV Solution 100 mls @ 0 mls/hr IV .Q0M [facility]; Protocol Last Admin: 05/19/19 16:18 Dose: 60 mcg/kg/min, 23.436 mls/hr Documented by: Vancomycin HCl 1,250 mg/ (Sodium Chloride) 250 mls @ 125 mls/hr IVPB Q12HR [facility] Norepinephrine Bitartrate 32 (mg/ Sodium Chloride) 250 mls @ 2.136 mls/hr IV .Q24H [facility]; Protocol Last Admin: 05/19/19 16:46 Dose: 0.07 mcg/kg/min, 2.136 mls/hr Documented by: Insulin Aspart (Novolog) 0 unit SQ Q6HR [facility]; Protocol Last Admin: 05/19/19 18:17 Dose: 1 unit Documented by: Ketorolac Tromethamine (Toradol) 15 mg IVP Q6HR PRN PRN Reason: Pain Stop: 05/23/19 13:31 Last Admin: 05/18/19 13:45 Dose: 15 mg Documented by: Lorazepam (Ativan) 1 mg IV Q6HR PRN PRN Reason: Anxiety Last Admin: 05/18/19 18:23 Dose: 1 mg Documented by: Lurasidone HCl (Latuda) 20 mg PO BID-W/MEALS [facility] Last Admin: 05/19/19 17:39 Dose: Not Given Documented by: Methylprednisolone Sodium Succinate (Solu-Medrol) 40 mg IV Q8HR [facility] Last Admin: 05/19/19 16:45 Dose: 40 mg Documented by: Miscellaneous Information (Pneumonia Protocol Utilized) 1 each PO ONCE PRN PRN Reason: Per Protocol Miscellaneous Information (Vancomycin Trough Due) 1 each MISCELLANE ONCE ONE Stop: 05/19/19 20:01 Naloxone HCl (Narcan) 0.2 mg IV Q2M PRN PRN Reason: Opioid Reversal Nicotine (Habitrol 21mg/24hr Patch) 1 patch TRANSDERM DAILY [facility] Last Admin: 05/19/19 10:10 Dose: 1 patch Documented by: Buprenorphine Hcl [ (Subutex] 8 Mg) 8 mg SUBLINGUAL AC-TID [facility] Last Admin: 05/19/19 17:38 Dose: Not Given Documented by: Pantoprazole Sodium (Protonix) 40 mg IV DAILY [facility] Last Admin: 05/19/19 09:13 Dose: 40 mg Documented by: Physical examination: VITAL SIGNS: 97.7, 94, 20, 83/59, 98% on ventilator GENERAL: Laying in bed, intubated. EYES: Pupils equal. Conjunctiva pale HEENT: External appearance of nose and ears normal, oral cavity dry.endotracheal tube in place NECK: JVD unable to assess; masses not palpable. HEART: First and second heart sounds are normal; no edema. LUNGS: Respiratory rate increased, diminished breath sounds coarse crackles on the right base posteriorly. right-sided chest tube in place ABDOMEN: Soft, nontender, liver spleen not palpable, no masses palpable. PSYCH: unable to assess as patient is intubated INVESTIGATIONS, reviewed in the clinical context: white count 35 hemoglobin 10.9 potassium 4 bun 8 creatinine 0.45 Previous investigations White count 28.5 hemoglobin 12.1 sodium 127 potassium 4.1. Creatinine 0.81 albumin 3.0 UA negative for leukoesterase and nitrites Chest x-ray film personally reviewed by me-shows dense consolidation of the right side with questionable fluid Computed tomography scan of the chest shows complex lobular take fluid collection in the right extending across the midline diffuse airspace disease in the right with bullous changes in the apex lobes no solid mass reported Assessment: -Right-sided multilobar pneumonia with parapneumonic effusion with sepsis, slow to respond -Right-sided chest tube placed, initially about 1100 mL of fluid obtained -Acute hypoxic respiratory failure from above, now on ventilator support -Acute delirium with encephalopathy secondary to underlying sepsis, -Acute COPD exacerbation in a current smoker, slow to respond - nicotine dependence patient's cigarette smoker -Idiopathic peripheral neuropathy -Bipolar disorder -Hyponatremia -Hypoalbuminemia could be an acute phase reactant Plan: patient remains on IV Levaquin, IV Solu-Medrol, levo fed, IV Zosyn, IV propofol, IV vancomycin. On the ventilator. Remains critical. In the ICU. 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
[2019-05-19] MEDS ORDERED: VANCOMYCIN TROUGH DUE 1 EACH MISC MISCELLANE ONE (20:00)
[2019-05-19] MEDS: LEVOFLOXACIN 750MG-D5W PMX 750 MG in DEXTROSE/WATER 1 150ML.BAG IVPB SCH (20:21)
[2019-05-19 20:26] LABS: Mononuclear WBC,Body Fluid 41 %; Polynuclear WBC,Body Fluid 59 %; Total Cells Counted,Body Fluid 100
[2019-05-19] MEDS ORDERED: VANCOMYCIN 1,250 MG in SODIUM CHLORIDE 0.9% 250 ML IVPB SCH (21:00)
[2019-05-19 21:24] LABS: Glucose, BF Source Pleural Fluid; Glucose, Body Fluid 31 mg/dL
--- NOTE | 2019-05-19 22:16 | P.CONS ---
History of Present Illness - Reason for Consult Consult date: 05/19/19 - Chief Complaint shortness of breath - History of Present Illness 54-year-old male who is a long-standing history of bipolar disorder schizophrenia and a closed head injury presents to the emergency center with increasing shortness of breath. It is noted that before his intubation the patient was a poor historian and he was concerned that he was having withdrawal from benzodiazepine therapy. At admission his chest x-ray was abnormal with a right pleural effusion and right lower lobe consolidation. He had evidence of fever and leukocytosis as well as pleuritic chest pain. He was tachycardic and was resuscitated and treated with antibiotic therapy of Zosyn and Levaquin. The patient's status has declined. He developed respiratory failure requiring intubation sedation and mechanical ventilation. He also had a chest tube applied to the right pleural effusion. His required vasopressor therapy that is also being titrated. His oxygenation is improved he is on a lower FiO2 but still a PEEP of 12. He is on propofol and very comfortable. Review of Systems ROS unobtainable: due to endotracheal tube Past Medical History Past Medical History: COPD Additional Past Medical History / Comment(s): compartment syndrome to left lower leg, GI upset, NEUROPATHY. per old hx 2010- closed head injury 2006, recent fall-scabbed area to forehead. History of Any Multi-Drug Resistant Organisms: MRSA Year Discovered:: ?2010 h&p MDRO Source:: no source provided Past Surgical History: Back Surgery Additional Past Surgical History / Comment(s): Surgery on Left Lower Leg for Compartment Syndrome November 2010, lt leg debridment had non healing wound/wound vac 2010- per old 2010 hx mrsa listed but no date or source.sinus sx. Past Anesthesia/Blood Transfusion Reactions: No Reported Reaction Past Psychological History: ADD/ADHD, Anxiety, Bipolar, Depression, Schizophrenia Additional Psychological History / Comment(s): poor historian. Smoking Status: Current every day smoker Past Alcohol Use History: None Reported Additional Past Alcohol Use History / Comment(s): 2 ppd x 32 years Past Drug Use History: None Reported Additional Drug Use History / Comment(s): Percocet and Xanax also per old 2011 h&p used heroin, ecstacy, amphetamines, benzodiazepines - Past Family History Father Family Medical History: Myocardial Infarction ([place]) Additional Family Medical History / Comment(s): ETOH abuse, Cardiac Arrest at the age of 60 withdrawing from ETOH Mother Family Medical History: Congestive Heart Failure (CHF), Hypertension Additional Family Medical History / Comment(s): Breast Cancer that spread to the lymph nodes Medications and Allergies Home Medications and Allergies Comment(s): Current Medications Acetaminophen (Tylenol Tab) 650 mg PO Q6HR PRN PRN Reason: Fever and/ or Pain Last Admin: 05/18/19 17:12 Dose: 650 mg Documented by: Albuterol/Ipratropium (Duoneb 0.5 Mg-3 Mg/3 Ml Soln) 3 ml INHALATION RT-QID [facility] Last Admin: 05/19/19 19:14 Dose: 3 ml Documented by: Aripiprazole (Abilify) 10 mg PO DAILY [facility] Last Admin: 05/19/19 10:11 Dose: 10 mg Documented by: Baclofen (Lioresal) 5 mg PO QID PRN PRN Reason: Muscle Spasm Buspirone HCl (Buspar) 10 mg PO BID [facility] Last Admin: 05/19/19 21:48 Dose: 10 mg Documented by: Chlorhexidine Gluconate (Peridex) 15 ml MUCOUS MEM BID [facility] Last Admin: 05/19/19 21:47 Dose: 15 ml Documented by: Diazepam (Valium) 5 mg IVP Q4H PRN PRN Reason: Seizures Doxepin HCl (Sinequan) 150 mg PO HS [facility] Last Admin: 05/19/19 01:11 Dose: Not Given Documented by: Enoxaparin Sodium (Lovenox) 40 mg SQ DAILY [facility] Last Admin: 05/19/19 09:13 Dose: 40 mg Documented by: Gabapentin (Neurontin) 600 mg PO TID [facility] Last Admin: 05/19/19 16:46 Dose: 600 mg Documented by: Levofloxacin 750 mg/ IV (Solution) 150 mls @ 100 mls/hr IVPB Q24H [facility] Stop: 05/29/19 19:31 Last Admin: 05/19/19 20:21 Dose: 100 mls/hr Documented by: Piperacillin Sod/Tazobactam (Sod 3.375 gm/ Sodium Chloride) 100 mls @ 25 mls/hr IVPB Q8HR [facility] Stop: 05/27/19 08:01 Last Admin: 05/19/19 16:47 Dose: 25 mls/hr Documented by: Lactated Ringer's (Lactated Ringers) 1,000 mls @ 100 mls/hr IV .Q10H [facility] Last Admin: 05/19/19 16:47 Dose: 100 mls/hr Documented by: Propofol 1,000 mg/ IV Solution 100 mls @ 0 mls/hr IV .Q0M [facility]; Protocol Last Admin: 05/19/19 21:04 Dose: 60 mcg/kg/min, 23.436 mls/hr Documented by: Vancomycin HCl 1,250 mg/ (Sodium Chloride) 250 mls @ 125 mls/hr IVPB Q12HR [facility] Stop: 05/19/19 23:59 Last Admin: 05/19/19 21:49 Dose: 125 mls/hr Documented by: Norepinephrine Bitartrate 32 (mg/ Sodium Chloride) 250 mls @ 2.136 mls/hr IV .Q24H [facility]; Protocol Last Titration: 05/19/19 16:47 Dose: 0.08 mcg/kg/min, 2.441 mls/hr Documented by: Vancomycin HCl 1,250 mg/ (Sodium Chloride) 250 mls @ 125 mls/hr IVPB Q8H [facility] Insulin Aspart (Novolog) 0 unit SQ Q6HR [facility]; Protocol Last Admin: 05/19/19 18:17 Dose: 1 unit Documented by: Ketorolac Tromethamine (Toradol) 15 mg IVP Q6HR PRN PRN Reason: Pain Stop: 05/23/19 13:31 Last Admin: 05/18/19 13:45 Dose: 15 mg Documented by: Lorazepam (Ativan) 1 mg IV Q6HR PRN PRN Reason: Anxiety Last Admin: 05/18/19 18:23 Dose: 1 mg Documented by: Lurasidone HCl (Latuda) 20 mg PO BID-W/[facility] Last Admin: 05/19/19 17:39 Dose: Not Given Documented by: Methylprednisolone Sodium Succinate (Solu-Medrol) 40 mg IV Q8HR [facility] Last Admin: 05/19/19 16:45 Dose: 40 mg Documented by: Miscellaneous Information (Pneumonia Protocol Utilized) 1 each PO ONCE PRN PRN Reason: Per Protocol Naloxone HCl (Narcan) 0.2 mg IV Q2M PRN PRN Reason: Opioid Reversal Nicotine (Habitrol 21mg/24hr Patch) 1 patch TRANSDERM DAILY [facility] Last Admin: 05/19/19 10:10 Dose: 1 patch Documented by: Buprenorphine Hcl [ (Subutex] 8 Mg) 8 mg SUBLINGUAL AC-TID [facility] Last Admin: 05/19/19 17:38 Dose: Not Given Documented by: Pantoprazole Sodium (Protonix) 40 mg IV DAILY [facility] Last Admin: 05/19/19 09:13 Dose: 40 mg Documented by: Home Medications Medication Instructions Recorded Confirmed Type ARIPiprazole [Abilify] 10 mg PO DAILY 04/27/19 05/16/19 History Buprenorphine HCl [Subutex] 8 mg SUBLINGUAL AC-TID 04/27/19 05/16/19 History Doxepin HCl [SINEquan] 150 mg PO HS 04/27/19 05/16/19 History Gabapentin 600 mg PO TID 04/27/19 05/16/19 History busPIRone HCl [Buspar] 10 mg PO BID 04/27/19 05/16/19 History Baclofen [Lioresal] 20 mg PO Q6H PRN 05/16/19 05/16/19 History Allergies Allergy/AdvReac Type Severity Reaction Status Date / Time Fish Containing Products Allergy Unknown Verified 05/16/19 16:41 [Fish] ibuprofen [From Motrin] Allergy Unknown Verified 05/16/19 16:41 Physical Exam Vitals: Vital Signs Temp Pulse Resp BP Pulse Ox 05/19/19 20:00 97.7 F 79 16 99/69 99 05/19/19 19:45 86 29 H 89/60 99 05/19/19 19:30 91 20 98/66 99 05/19/19 19:15 88 21 97/66 98 05/19/19 19:14 88 05/19/19 19:00 85 20 99/64 97 05/19/19 18:45 88 20 104/67 98 05/19/19 18:30 86 20 119/82 98 05/19/19 18:15 72 20 134/87 98 05/19/19 18:00 70 21 109/72 100 05/19/19 17:45 86 20 114/79 99 05/19/19 17:30 93 20 120/84 99 05/19/19 17:15 80 16 104/75 99 05/19/19 17:00 90 20 87/62 99 05/19/19 16:45 92 20 99/87 100 05/19/19 16:30 45 L 20 100 05/19/19 16:15 96 20 109/79 99 05/19/19 16:00 93 20 109/83 100 05/19/19 15:45 95 20 103/73 99 05/19/19 15:40 88 05/19/19 15:30 80 20 105/75 99 05/19/19 15:21 86 05/19/19 15:15 87 21 95/65 99 05/19/19 15:00 73 20 99/68 98 05/19/19 14:45 85 20 101/72 98 05/19/19 14:30 86 20 95/72 98 05/19/19 14:15 89 20 82/54 98 05/19/19 14:00 78 20 94/67 97 05/19/19 13:45 95 20 95/66 98 05/19/19 13:30 92 20 93/66 97 05/19/19 13:15 89 20 93/63 97 05/19/19 13:00 85 20 98/68 97 05/19/19 12:45 98 20 96/65 98 05/19/19 12:30 82 22 100/72 97 05/19/19 12:15 92 20 104/72 98 05/19/19 12:00 97.7 F 94 20 83/59 98 05/19/19 11:54 96 05/19/19 11:45 93 20 97/70 99 05/19/19 11:42 95 05/19/19 11:30 95 20 94/67 98 05/19/19 11:15 96 20 95/67 98 05/19/19 11:00 96 20 92/69 97 05/19/19 10:45 97 20 92/65 97 05/19/19 10:30 98 20 91/67 96 05/19/19 10:15 100 20 117/77 96 05/19/19 10:00 82 20 157/97 97 05/19/19 09:45 87 20 97 05/19/19 09:30 100 20 100 05/19/19 09:15 99 20 99 05/19/19 09:00 101 H 20 100 05/19/19 08:45 104 H 20 100 05/19/19 08:30 107 H 20 100 05/19/19 08:15 109 H 26 H 110/80 100 05/19/19 08:11 112 H 05/19/19 08:00 98.7 F 111 H 20 100 05/19/19 07:59 111 H 05/19/19 07:45 114 H 20 100 05/19/19 07:30 102 H 20 100 05/19/19 07:15 22 100 05/19/19 07:00 68 20 100 05/19/19 06:45 73 20 100 05/19/19 06:30 74 20 98 05/19/19 06:15 77 20 97 05/19/19 06:00 77 20 159/100 98 05/19/19 05:45 81 20 120/77 96 05/19/19 05:30 78 21 120/77 98 05/19/19 05:15 77 20 98 05/19/19 05:00 84 20 120/77 96 05/19/19 04:45 82 20 97 05/19/19 04:30 81 21 97 05/19/19 04:15 80 21 97 05/19/19 04:00 99 F 84 22 77 L 05/19/19 03:45 84 20 97 05/19/19 03:30 86 20 99 05/19/19 03:15 86 21 98 05/19/19 03:00 88 23 100 05/19/19 02:45 87 21 98 05/19/19 02:30 89 20 99 05/19/19 02:15 89 21 99 05/19/19 02:00 88 22 99 05/19/19 01:45 89 21 122/81 98 05/19/19 01:30 90 21 97/62 99 05/19/19 01:15 92 21 92/58 98 05/19/19 01:00 91 21 120/72 88 L 05/19/19 00:45 97 22 117/77 98 05/19/19 00:30 93 22 126/80 98 05/19/19 00:15 93 23 122/77 99 05/19/19 00:00 99 F 92 22 120/76 100 05/18/19 23:45 90 20 117/74 100 05/18/19 23:30 92 21 115/73 100 05/18/19 23:15 93 22 115/71 100 05/18/19 23:00 96 22 114/74 99 05/18/19 22:45 97 22 108/69 99 05/18/19 22:30 98 21 108/66 98 05/18/19 22:15 97 21 105/65 96 Intake and Output 05/19/19 05/19/19 05/19/19 06:59 14:59 22:59 Intake Total 7551.274 4654.655 837.140 Output Total 0 2675 385 Balance 1194.280 -1413.345 452.140 Intake: IV 800 1025 600 Lactated Ringers 1,000 ml 800 800 600 @ 100 mls/hr IV .Q10H [facility] Rx#:[id number] Piperacillin-Tazobactam 3 100 .375 gm In Sodium Chloride 0.9% 100 ml @ 25 mls/hr IVPB Q8HR [facility] Rx# :[id number] Vancomycin 1,250 mg In 125 Sodium Chloride 0.9% 250 ml @ 125 mls/hr IVPB Q12H [facility] Rx#:[id number] Intake, IV Titration 394.280 236.655 187.140 Amount Norepinephrine 32 mg In 0.036 Sodium Chloride 0.9% 218 ml @ 0.07 MCG/KG/MIN 2. 136 mls/hr IV .Q24H [facility] Rx#:[id number] Norepinephrine 4 mg In 367.522 136.655 Sodium Chloride 0.9% 250 ml @ 0.05 MCG/KG/MIN 11. 925 mls/hr IV .[id number] [facility] Rx#:[id number] Propofol 1,000 mg In 26.758 100 187.104 Empty Bag 1 bag @ Titrate IV .Q0M [facility] Rx#: [id number] Tube Feeding 20 Other 30 Output: Chest Tube Drainage 1230 90 Chest Tube Right Lateral 1230 90 Chest Gastric Drainage 90 Urine 0 1445 205 Other: Voiding Method Diaper Indwelling Catheter Indwelling Catheter # Voids 1 Weight 65.1 kg 65.1 kg ABP, PAP, CO, CI - Last 8 Hours Arterial Blood Pressure 111/65 Arterial Blood Pressure 112/66 Arterial Blood Pressure 97/61 Arterial Blood Pressure 116/64 Arterial Blood Pressure 111/61 Arterial Blood Pressure 104/63 Arterial Blood Pressure 137/70 Arterial Blood Pressure 135/64 Arterial Blood Pressure 149/75 Arterial Blood Pressure 127/65 Arterial Blood Pressure 136/69 Arterial Blood Pressure 109/63 Arterial Blood Pressure 96/50 Arterial Blood Pressure 212/97 Arterial Blood Pressure 117/66 Arterial Blood Pressure 114/64 Arterial Blood Pressure 101/54 Arterial Blood Pressure 109/59 Arterial Blood Pressure 97/53 Arterial Blood Pressure 99/55 Arterial Blood Pressure 101/58 Arterial Blood Pressure 97/54 54 -year-old male intubated sedated and mechanically ventilated HEENT: Anicteric conjunctiva are pink and moist nasal mucosa grossly intact without significant lesions, there is no thrush Around the endotracheal tube, he is edentulous Neck: The neck is supple without significant lymphadenopathy or thyromegaly. Lungs:Symmetrical bilateral air entry decreased breath sounds at bilateral bases bronchial sounds right base Heart: Regular rate and rhythm with an audible S1-S2, no S3 no S4. There is no significant murmur click or rub, PMI was nondisplaced. Abdomen: Positive bowel sounds soft and nontender without palpable masses or organomegaly. There was no guarding or rebound. Extremities: The upper extremities have excellent pulses they are symmetric, no significant petechiae or telangiectasia. No splinter hemorrhages were noted. The lower extremities are free from significant edema. The peripheral pulses were 2+ and symmetric. Neuro: sedated on the ventilator Results CBC & Chem 7: 05/19/19 04:30 05/19/19 04:30 Labs: Abnormal Lab Results - Last 24 Hours (Table) 05/19/19 05/19/19 05/19/19 Range/Units 04:20 04:30 04:30 WBC 35.0 H (3.8-10.6) k/uL RBC 3.49 L (4.30-5.90) m/uL Hgb 10.9 L (13.0-17.5) gm/dL Hct 32.6 L (39.0-53.0) % Neutrophils # (Manual) 31.85 H (1.3-7.7) k/uL Lymphocytes # (Manual) 0.70 L (1.0-4.8) k/uL Monocytes # (Manual) 2.45 H (0-1.0) k/uL ABG pCO2 51 H (35-45) mmHg ABG HCO3 30 H (21-25) mmol/L ABG Total CO2 32 H (19-24) mmol/L Sodium 134 L (137-145) mmol/L BUN 8 L (9-20) mg/dL Creatinine 0.45 L (0.66-1.25) mg/dL Glucose 154 H (74-99) mg/dL POC Glucose (mg/dL) (75-99) mg/dL Calcium 8.1 L (8.4-10.2) mg/dL Ur Specific [place] (1.001-1.035) Urine Protein (Negative) Urine Bacteria (None) /hpf Urine Mucus (None) /hpf 05/19/19 05/19/19 05/19/19 Range/Units 11:48 12:20 17:23 WBC (3.8-10.6) k/uL RBC (4.30-5.90) m/uL Hgb (13.0-17.5) gm/dL Hct (39.0-53.0) % Neutrophils # (Manual) (1.3-7.7) k/uL Lymphocytes # (Manual) (1.0-4.8) k/uL Monocytes # (Manual) (0-1.0) k/uL ABG pCO2 (35-45) mmHg ABG HCO3 (21-25) mmol/L ABG Total CO2 (19-24) mmol/L Sodium (137-145) mmol/L BUN (9-20) mg/dL Creatinine (0.66-1.25) mg/dL Glucose (74-99) mg/dL POC Glucose (mg/dL) 181 H 196 H (75-99) mg/dL Calcium (8.4-10.2) mg/dL Ur Specific [place] 1.038 H (1.001-1.035) Urine Protein 1+ H (Negative) Urine Bacteria Rare H (None) /hpf Urine Mucus Rare H (None) /hpf 05/19/19 Range/Units 18:13 WBC (3.8-10.6) k/uL RBC (4.30-5.90) m/uL Hgb (13.0-17.5) gm/dL Hct (39.0-53.0) % Neutrophils # (Manual) (1.3-7.7) k/uL Lymphocytes # (Manual) (1.0-4.8) k/uL Monocytes # (Manual) (0-1.0) k/uL ABG pCO2 (35-45) mmHg ABG HCO3 (21-25) mmol/L ABG Total CO2 (19-24) mmol/L Sodium (137-145) mmol/L BUN (9-20) mg/dL Creatinine (0.66-1.25) mg/dL Glucose (74-99) mg/dL POC Glucose (mg/dL) 152 H (75-99) mg/dL Calcium (8.4-10.2) mg/dL Ur Specific [place] (1.001-1.035) Urine Protein (Negative) Urine Bacteria (None) /hpf Urine Mucus (None) /hpf Microbiology - Last 24 Hours (Table) 05/16/19 18:43 Blood Culture - Preliminary Blood No Growth after 72 hours 05/19/19 12:20 Fungal Culture - Preliminary Pleural Fluid 05/19/19 12:20 Acid Fast Bacilli Culture - Preliminary Pleural Fluid 05/19/19 12:20 Body Fluid Culture - Preliminary Pleural Fluid 05/19/19 00:25 Sputum Culture - Preliminary Sputum Laboratory Results WBC 35.0 k/uL (3.8-10.6) H 05/19/19 04:30 RBC 3.49 m/uL (4.30-5.90) L 05/19/19 04:30 Hgb 10.9 gm/dL (13.0-17.5) L 05/19/19 04:30 Hct 32.6 % (39.0-53.0) L 05/19/19 04:30 MCV 93.5 fL (80.0-100.0) 05/19/19 04:30 MCH 31.1 pg (25.0-35.0) 05/19/19 04:30 MCHC 33.3 g/dL (31.0-37.0) 05/19/19 04:30 RDW 14.0 % (11.5-15.5) 05/19/19 04:30 Plt Count 376 k/uL (150-450) 05/19/19 04:30 Neutrophils % 86 % 05/18/19 05:31 Neutrophils % (Manual) 91 % 05/19/19 04:30 Lymphocytes % 4 % 05/18/19 05:31 Lymphocytes % (Manual) 2 % 05/19/19 04:30 Monocytes % 8 % 05/18/19 05:31 Monocytes % (Manual) 7 % 05/19/19 04:30 Eosinophils % 0 % 05/18/19 05:31 Basophils % 1 % 05/18/19 05:31 Neutrophils # 19.4 k/uL (1.3-7.7) H 05/18/19 05:31 Neutrophils # (Manual) 31.85 k/uL (1.3-7.7) H 05/19/19 04:30 Lymphocytes # 0.8 k/uL (1.0-4.8) L 05/18/19 05:31 Lymphocytes # (Manual) 0.70 k/uL (1.0-4.8) L 05/19/19 04:30 Monocytes # 1.9 k/uL (0-1.0) H 05/18/19 05:31 Monocytes # (Manual) 2.45 k/uL (0-1.0) H 05/19/19 04:30 Eosinophils # 0.0 k/uL (0-0.7) 05/18/19 05:31 Basophils # 0.2 k/uL (0-0.2) 05/18/19 05:31 Nucleated RBCs 0 /100 WBC (0-0) 05/19/19 04:30 Manual Slide Review Performed 05/19/19 04:30 Polychromasia Present 05/19/19 04:30 Sample Site FALFURRIAS 05/19/19 04:20 ABG pH 7.38 (7.35-7.45) 05/19/19 04:20 ABG pCO2 51 mmHg (35-45) H 05/19/19 04:20 ABG pO2 83 mmHg (83-108) 05/19/19 04:20 ABG HCO3 30 mmol/L (21-25) H 05/19/19 04:20 ABG Total CO2 32 mmol/L (19-24) H 05/19/19 04:20 ABG O2 Saturation 96.2 % (94-97) 05/19/19 04:20 ABG Base Excess 5.1 mmol/L 05/19/19 04:20 Prashant Test Yes 05/19/19 04:20 FiO2 80 % 05/19/19 04:20 Sodium 134 mmol/L (137-145) L 05/19/19 04:30 Potassium 4.0 mmol/L (3.5-5.1) 05/19/19 04:30 Chloride 100 mmol/L (98-107) 05/19/19 04:30 Carbon Dioxide 30 mmol/L (22-30) 05/19/19 04:30 Anion Gap 4 mmol/L 05/19/19 04:30 BUN 8 mg/dL (9-20) L 05/19/19 04:30 Creatinine 0.45 mg/dL (0.66-1.25) L 05/19/19 04:30 Est GFR (CKD-EPI)AfAm >90 (>60 ml/min/1.73 sqM) 05/19/19 04:30 Est GFR (CKD-EPI)NonAf >90 (>60 ml/min/1.73 sqM) 05/19/19 04:30 Glucose 154 mg/dL (74-99) H 05/19/19 04:30 POC Glucose (mg/dL) 152 mg/dL (75-99) H 05/19/19 18:13 POC Glu [employer] Installer ID Lilibeth Arriola 05/19/19 18:13 Plasma Lactic Acid Jared 1.1 mmol/L (0.7-2.0) 05/16/19 18:43 Calcium 8.1 mg/dL (8.4-10.2) L 05/19/19 04:30 Total Bilirubin 1.0 mg/dL (0.2-1.3) 05/16/19 18:43 AST 36 U/L (17-59) 05/16/19 18:43 ALT 33 U/L (21-72) 05/16/19 18:43 Alkaline Phosphatase 71 U/L (38-126) 05/16/19 18:43 Total Protein 6.4 g/dL (6.3-8.2) 05/16/19 18:43 Albumin 3.0 g/dL (3.5-5.0) L 05/16/19 18:43 Urine Color Yellow 05/19/19 12:20 Urine Appearance Clear (Clear) 05/19/19 12:20 Urine pH 6.5 (5.0-8.0) 05/19/19 12:20 Ur Specific [place] 1.038 (1.001-1.035) H 05/19/19 12:20 Urine Protein 1+ (Negative) H 05/19/19 12:20 Urine Glucose (UA) Negative (Negative) 05/19/19 12:20 Urine Ketones Negative (Negative) 05/19/19 12:20 Urine Blood Negative (Negative) 05/19/19 12:20 Urine Nitrite Negative (Negative) 05/19/19 12:20 Urine Bilirubin Negative (Negative) 05/19/19 12:20 Urine Urobilinogen <2.0 mg/dL (<2.0) 05/19/19 12:20 Ur Leukocyte Esterase Negative (Negative) 05/19/19 12:20 Urine RBC 5 /hpf (0-5) 05/19/19 12:20 Urine WBC 3 /hpf (0-5) 05/19/19 12:20 Ur Squamous Epith Cells <1 /hpf (0-4) 05/19/19 12:20 Urine Bacteria Rare /hpf (None) H 05/19/19 12:20 Hyaline Casts 101 /lpf (0-2) H 05/16/19 18:43 Urine Mucus Rare /hpf (None) H 05/19/19 12:20 Fluid Source Pleural 05/19/19 12:20 Fluid Color Yellow 05/19/19 12:20 Fluid Appearance Hazy 05/19/19 12:20 Fluid RBC 3315 /uL 05/19/19 12:20 Fluid Nucleated Cells 130 /uL 05/19/19 12:20 Fluid Polynuclear WBCs 59 % 05/19/19 12:20 Fluid Mononuclear WBCs 41 % 05/19/19 12:20 Body Fluid Glucose Source Pleural Fluid 05/19/19 12:20 Fluid Glucose 31 mg/dL 05/19/19 12:20 Body Fluid Protein Source Pleural Fluid 05/19/19 12:20 Fluid Total Protein 3900 mg/dL 05/19/19 12:20 Body Fluid LDH Source Pleural Fluid 05/19/19 12:20 Fluid LDH 2122 U/L 05/19/19 12:20 Fluid Comment Few Mesothelial 05/19/19 12:20 Vancomycin Trough 11.7 ug/mL 05/19/19 20:30 Salicylates <1.0 mg/dL 05/16/19 18:43 Urine Opiates Screen Not Detected (NotDetected) 05/16/19 18:43 Ur Oxycodone Screen Not Detected (NotDetected) 05/16/19 18:43 Urine Methadone Screen Not Detected (NotDetected) 05/16/19 18:43 Ur Propoxyphene Screen Not Detected (NotDetected) 05/16/19 18:43 Acetaminophen <10.0 ug/mL 05/16/19 18:43 Ur Barbiturates Screen Not Detected (NotDetected) 05/16/19 18:43 U Tricyclic Antidepress Detected (NotDetected) H 05/16/19 18:43 Ur Phencyclidine Scrn Not Detected (NotDetected) 05/16/19 18:43 Ur Amphetamines Screen Not Detected (NotDetected) 05/16/19 18:43 U Methamphetamines Scrn Not Detected (NotDetected) 05/16/19 18:43 U Benzodiazepines Scrn Detected (NotDetected) H 05/16/19 18:43 Urine Cocaine Screen Not Detected (NotDetected) 05/16/19 18:43 U Marijuana (THC) Screen Not Detected (NotDetected) 05/16/19 18:43 Serum Alcohol <10 mg/dL 05/16/19 18:43 Influenza Type A RNA Not Detected (Not Detectd) 05/16/19 18:43 Influenza Type B (PCR) Not Detected (Not Detectd) 05/16/19 18:43 Microbiology 05/16/19 18:43 Blood Blood Culture - Preliminary No Growth after 72 hours 05/19/19 12:20 Pleural Fluid Fungal Culture - Preliminary 05/19/19 12:20 Pleural Fluid Acid Fast Bacilli Culture - Preliminary 05/19/19 12:20 Pleural Fluid Body Fluid Culture - Preliminary 05/19/19 00:25 Sputum Sputum Culture - Preliminary Chest x-ray: image reviewed (chest tube in place, right pleural effusion improved, still right basilar pneumonia infiltrate) Assessment and Plan (1) Community acquired bacterial pneumonia Narrative/Plan: 54-year-old male it is a complex past medical history with his underlying mental illness and history of head trauma with significant compromise status. Presents to hospital with significant shortness of breath but evidence of the extensive pleural effusion to the right chest and the pneumonia. Chest tube is in place and is receiving appropriate antibiotic therapy this time with Zosyn and Levaquin with his intensive care unit stay and concerns for potential gram-negative pneumonia as well as aspiration. Pleural fluid has been sent as a sputum culture to further help direct antibiotic therapy. The patient has had some improvement of his status with decreasing oxygen requirements throughout t day but still remains on PEEP of 12. Hemodynamically he is stable to improved requiring less vasopressor therapy. Adequate urinary output is noted. He has an extensive leukocytosis directly related to his extensive pneumonia and possible empyema. Current Visit: Yes Status: Acute Code(s): J15.9 - UNSPECIFIED BACTERIAL PNEUMONIA SNOMED Code(s): 107747950 (2) Acute respiratory failure with hypoxia and hypercapnia Current Visit: Yes Status: Acute Code(s): J96.01 - ACUTE RESPIRATORY FAILURE WITH HYPOXIA; J96.02 - ACUTE RESPIRATORY FAILURE WITH HYPERCAPNIA SNOMED Code(s): 841787608 (3) Leukocytosis Current Visit: Yes Status: Acute Code(s): D72.829 - ELEVATED WHITE BLOOD CELL COUNT, UNSPECIFIED SNOMED Code(s): 457677313
[2019-05-20 00:12] LABS: Glucose,Whole Blood 216 mg/dL (75-99)
[2019-05-20] MEDS: methylPREDNISolone SOD SUCCI 40 MG/ML 1 ML VIAL IV SCH ×4 (00:24→23:25)
[2019-05-20] MEDS: PROPOFOL 1,000 MG in EMPTY BAG 1 BAG IV SCH ×6 (00:24→23:24)
[2019-05-20] MEDS: INSULIN ASPART (NovoLOG) 100 UNIT/ML VIAL SQ SCH ×5 (00:25→23:23)
[2019-05-20] MEDS: PIPERACILLIN-TAZOBACTAM 3.375 GM in SODIUM CHLORIDE 0.9% 100 ML IVPB SCH ×4 (00:26→23:26)
[2019-05-20 05:32] LABS: Basophils # (A) 0.1 k/uL (0-0.2); Basophils % (A) 0 %; Eosinophils % (A) 0 %; HCT 30.7 % (39.0-53.0); Lymphocytes # (A) 0.6 k/uL (1.0-4.8); Lymphocytes % (A) 3 %; MCH 30.6 pg (25.0-35.0); MCHC 32.6 g/dL (31.0-37.0); MCV 93.8 fL (80.0-100.0); Mean Platelet Volume 6.4; Monocytes # (A) 1.1 k/uL (0-1.0); Monocytes % (A) 5 %; Neutrophils # (A) 21.3 k/uL (1.3-7.7); Neutrophils % (A) 92 %; Platelet Count 404 k/uL (150-450); RBC 3.27 m/uL (4.30-5.90); RDW 14.1 % (11.5-15.5); WBC 23.2 k/uL (3.8-10.6)
[2019-05-20 05:39] LABS: African American GFR (CKD) >90 (>60 ml/min/1.73 sqM); Anion Gap 4 mmol/L; Blood Urea Nitrogen 10 mg/dL (9-20); Calcium 8.4 mg/dL (8.4-10.2); Carbon Dioxide 31 mmol/L (22-30); Chloride 104 mmol/L (98-107); Glucose 152 mg/dL (74-99); Potassium 4.1 mmol/L (3.5-5.1); Sodium 139 mmol/L (137-145)
[2019-05-20 06:04] LABS: Glucose,Whole Blood 157 mg/dL (75-99)
[2019-05-20] MEDS: LACTATED RINGERS 1,000 ML IV SCH ×3 (06:15→16:58)
[2019-05-20] MEDS: VANCOMYCIN 1,250 MG in SODIUM CHLORIDE 0.9% 250 ML IVPB SCH ×3 (06:16→21:10)
[2019-05-20] MEDS: LURASIDONE 20 MG TAB PO SCH ×2 (06:49→18:34)
[2019-05-20] MEDS: Buprenorphine Hcl [Subutex] 8 MG SUBLINGUAL SCH ×3 (06:49→18:27)
--- NOTE | 2019-05-20 06:58 | XR ---
EXAMINATION TYPE: XR chest 1V portable DATE OF EXAM: 05/20/2019 COMPARISON: 05/19/2019 INDICATION: Tube placement TECHNIQUE: Single frontal view of the chest is obtained. FINDINGS: The heart size is normal. The pulmonary vasculature is normal. There is a masslike ureter and right hilar region. There are increased lung markings in the left lung and right base. Right central venous catheter is present with tip in the superior vena cava region. Endotracheal tube tip is above the syed. Nasogastric tube transverses the thorax tip within the proximal left upper quadrant of the abdomen. Nasogastric tube could be advanced approximately 4 to 5 cm. Small right pleu ral effusion is present. Right sided chest tube is present. No pneumothorax is evident. IMPRESSION: 1. Increased lung markings left lung and right lung base. Correlate for pulmonary edema. 2. Small right pleural fluid collection. 3. Right hilar mass. 4. Multiple lines and catheters discussed above. The nasogastric tube can be advanced approximately 5 cm.
[2019-05-20 07:30] LABS: ABG Base Excess 7.3 mmol/L; ABG HCO3 31 mmol/L (21-25); ABG Oxygen Saturation 98.4 % (94-97); ABG PCO2 46 mmHg (35-45); ABG PH 7.45 (7.35-7.45); ABG PO2 120 mmHg (83-108); ABG TCO2 33 mmol/L (19-24); Allen Test Performed? Yes
[2019-05-20] MEDS: NICOTINE 21MG/24HR PATCH TRANSDERM SCH (08:20)
[2019-05-20] MEDS: ENOXAPARIN 40 MG/0.4 ML SYRINGE SQ SCH (08:21)
[2019-05-20] MEDS: GABAPENTIN 300 MG CAP PO SCH ×3 (08:21→21:10)
[2019-05-20] MEDS: CHLORHEXIDINE GLUCONATE 15 ML CUP MUCOUS MEM SCH ×2 (08:21→21:09)
[2019-05-20] MEDS: PANTOPRAZOLE 40 MG/10 ML VIAL IV SCH (08:21)
[2019-05-20] MEDS: IPRATROPIUM-ALBUTEROL 3 ML NEB INHALATION SCH ×4 (08:25→20:51)
[2019-05-20] MEDS: ARIPiprazole 10 MG TAB PO SCH (08:42)
[2019-05-20] MEDS: busPIRone HCl 10 MG TAB PO SCH ×2 (08:42→21:09)
[2019-05-20] MEDS ORDERED: RX INFO: IV CONTRAST WAS GIVEN 1 EACH MISC MISCELLANE PRN (11:06)
--- NOTE | 2019-05-20 11:12 | P.PN ---
Subjective Progress Note Date: 05/20/19 Principal diagnosis: Community-acquired bacterial pneumonia, acute respiratory failure with hypoxia and hypercapnia, leukocytosis. Past medical history significant for chronic obstructive pulmonary disease, chronic and ongoing tobacco dependence, history of closed head injury, bipolar disorder, paranoid schizophrenia, narcotic and illicit drug use. Status post day #1 intubation with mechanical ventilator support. Right thoracostomy chest tube placement placed by Dr. Rai. Right subclavian triple-lumen central line placement by Dr. Rai. The patient is resting in bed in the intensive care unit, remains intubated with mechanical ventilator support. He is currently sedated on propofol drip at 60 mcg/kg/m. He is moving all 4 extremities appropriately with verbal stimuli. He remains on norepinephrine drip at 1.5 mcg/m. Bedside telemetry showing normal sinus rhythm heart rate 70. Current blood pressure is 110/75. OG tube is in place with tube feeding infusing vital high-protein at 40 mL per hour with automatic water flushes. Right pleural chest tube remains in place to low continuous wall suction -20 cm H2O. No air leak is present. 270 mL of serous colored drainage output in the last 24 hours. Chest x-ray was completed this morning which demonstrates increased lung markings of the left lung and right lung base, small right pleural fluid collection, and a right hilar mass. Cespedes catheter remains in place draining clear katia urine. He remains afebrile in the last 24 hours. ABG results this morning show a pH of 7.45, pCO2 46, pO2 120, HCO3 31, oxygen saturation is 98.4, base excess 7.3. Laboratory results show a WBC count of 23.2, Hgb 10.0, BUN 10, creatinine 0.35. Objective - Vital Signs Vital signs: Vital Signs Temp 98.2 F 05/20/19 07:45 Pulse 69 05/20/19 10:00 Resp 20 05/20/19 10:00 BP 110/75 05/20/19 09:45 Pulse Ox 100 05/20/19 10:00 Intake & Output 05/19/19 05/20/19 05/20/19 18:59 06:59 18:59 Intake Total 2401.275 3306.396 806.252 Output Total 3005 715 255 Balance -9300.834 4930.396 551.252 Weight 65.1 kg 73.5 kg Intake: IV 1425 1675 637.5 Lactated Ringers 1,000 ml 1200 1200 400 @ 100 mls/hr IV .Q10H [facility] Rx#:[id number] Levofloxacin 750Mg-D5w 100 Pmx 750 mg In Dextrose/ Water 1 150ml.bag @ 100 mls/hr IVPB Q24H [facility] Rx#: [id number] Piperacillin-Tazobactam 3 100 50 .375 gm In Sodium Chloride 0.9% 100 ml @ 25 mls/hr IVPB Q8HR [facility] Rx# :[id number] Vancomycin 1,250 mg In 125 375 187.5 Sodium Chloride 0.9% 250 ml @ 125 mls/hr IVPB Q12H [facility] Rx#:[id number] Intake, IV Titration 323.795 312.396 78.752 Amount Norepinephrine 32 mg In 0.036 34.276 2.585 Sodium Chloride 0.9% 218 ml @ 0.07 MCG/KG/MIN 2. 136 mls/hr IV .Q24H [facility] Rx#:[id number] Norepinephrine 4 mg In 136.655 Sodium Chloride 0.9% 250 ml @ 0.05 MCG/KG/MIN 11. 925 mls/hr IV .[id number] [facility] Rx#:[id number] Propofol 1,000 mg In 187.104 278.12 76.167 Empty Bag 1 bag @ Titrate IV .Q0M [facility] Rx#: [id number] Tube Feeding 290 90 Other 90 Output: Chest Tube Drainage 1320 50 Chest Tube Right Lateral 1320 50 Chest Gastric Drainage 90 Urine 1595 665 255 Other: Voiding Method Indwelling Catheter Indwelling Catheter Indwelling Catheter ABP, PAP, CO, CI - Last Documented Arterial Blood Pressure 84/45 - Constitutional Constitutional Comment(s): Sedated on propofol drip. Moving all 4 extremities appropriately and following some simple commands. General appearance: Present: no acute distress, thin - Respiratory Details: Lung sounds are diminished on his right lobes, few scattered expiratory wheezes to his left lobes. Respirations are symmetrical and nonlabored with mechanical ventilator support. Current mechanical ventilator settings are as follows: Ass ist control 20, TV 500, FiO2 50%, PEEP of 12. Right pleural chest tube remains in place to low continuous wall suction -20 cm H2O. No air leak is present. Draining thin serosanguineous drainage with 270 mL output in the last 24 hours. Oxygen saturation is 100% on current mechanical ventilator settings. - Cardiovascular Details: Regular rhythm and rate. S1 and S2 present, negative for S3, gallop or murmur. Bedside telemetry showing normal sinus rhythm heart rate 70. Knee-high sequential compression devices in place was bilateral lower extremities. - Gastrointestinal Gastrointestinal Comment(s): Abdomen is soft, nontender and nondistended. Active bowel sounds present all 4 abdominal quadrants. No guarding or rigidity. OG tube is in place with tube feeding infusing at 40 mL per hour. - Genitourinary Genitourinary Comment(s): Cespedes catheter for accurate I&O. Draining clear katia urine. - Integumentary Integumentary Comment(s): Skin is warm and dry. No clubbing or cyanosis is present. Left chest tube insertion site dressing is clean, dry and intact. - Neurologic Neurologic Comment(s): Sedated on propofol drip at 60 mcg/kg/m. Neurologic: Present: CNII-XII intact - Musculoskeletal Musculoskeletal: Present: generalized weakness, strength equal bilaterally - Psychiatric Psychiatric Comment(s): Sedated on propofol drip at 60 mcg/kg/m. Moving all 4 extremities appropriately with verbal stimuli. - Allied health notes Allied health notes reviewed: nursing - Labs CBC & Chem 7: 05/20/19 05:10 05/20/19 05:10 Labs: Abnormal Lab Results - Last 24 Hours (Table) 05/19/19 05/19/19 05/19/19 Range/Units 11:48 12:20 17:23 WBC (3.8-10.6) k/uL RBC (4.30-5.90) m/uL Hgb (13.0-17.5) gm/dL Hct (39.0-53.0) % Neutrophils # (1.3-7.7) k/uL Lymphocytes # (1.0-4.8) k/uL Monocytes # (0-1.0) k/uL ABG pCO2 (35-45) mmHg ABG pO2 (83-108) mmHg ABG HCO3 (21-25) mmol/L ABG Total CO2 (19-24) mmol/L ABG O2 Saturation (94-97) % Carbon Dioxide (22-30) mmol/L Creatinine (0.66-1.25) mg/dL Glucose (74-99) mg/dL POC Glucose (mg/dL) 181 H 196 H (75-99) mg/dL Ur Specific [place] 1.038 H (1.001-1.035) Urine Protein 1+ H (Negative) Urine Bacteria Rare H (None) /hpf Urine Mucus Rare H (None) /hpf 05/19/19 05/20/19 05/20/19 Range/Units 18:13 00:08 05:10 WBC (3.8-10.6) k/uL RBC (4.30-5.90) m/uL Hgb (13.0-17.5) gm/dL Hct (39.0-53.0) % Neutrophils # (1.3-7.7) k/uL Lymphocytes # (1.0-4.8) k/uL Monocytes # (0-1.0) k/uL ABG pCO2 (35-45) mmHg ABG pO2 (83-108) mmHg ABG HCO3 (21-25) mmol/L ABG Total CO2 (19-24) mmol/L ABG O2 Saturation (94-97) % Carbon Dioxide 31 H (22-30) mmol/L Creatinine 0.35 L (0.66-1.25) mg/dL Glucose 152 H (74-99) mg/dL POC Glucose (mg/dL) 152 H 216 H (75-99) mg/dL Ur Specific [place] (1.001-1.035) Urine Protein (Negative) Urine Bacteria (None) /hpf Urine Mucus (None) /hpf 05/20/19 05/20/19 05/20/19 Range/Units 05:10 06:02 07:25 WBC 23.2 H (3.8-10.6) k/uL RBC 3.27 L (4.30-5.90) m/uL Hgb 10.0 L (13.0-17.5) gm/dL Hct 30.7 L (39.0-53.0) % Neutrophils # 21.3 H (1.3-7.7) k/uL Lymphocytes # 0.6 L (1.0-4.8) k/uL Monocytes # 1.1 H (0-1.0) k/uL ABG pCO2 46 H (35-45) mmHg ABG pO2 120 H (83-108) mmHg ABG HCO3 31 H (21-25) mmol/L ABG Total CO2 33 H (19-24) mmol/L ABG O2 Saturation 98.4 H (94-97) % Carbon Dioxide (22-30) mmol/L Creatinine (0.66-1.25) mg/dL Glucose (74-99) mg/dL POC Glucose (mg/dL) 157 H (75-99) mg/dL Ur Specific [place] (1.001-1.035) Urine Protein (Negative) Urine Bacteria (None) /hpf Urine Mucus (None) /hpf Microbiology - Last 24 Hours (Table) 05/19/19 12:20 Acid Fast Bacilli Smear - Final Pleural Fluid Acid Fast Bacilli Culture - Preliminary 05/16/19 18:43 Blood Culture - Preliminary Blood No Growth after 72 hours 05/19/19 12:20 Fungal Culture - Preliminary Pleural Fluid 05/19/19 12:20 Body Fluid Culture - Preliminary Pleural Fluid 05/19/19 00:25 Sputum Culture - Preliminary Sputum - Imaging and Cardiology Chest x-ray: report reviewed, image reviewed Assessment and Plan Assessment: 1. Hypoxic respiratory failure, post intubation mechanical ventilation 2. Right loculated pleural effusion, status post right-sided chest tube placem ent 3. Sepsis secondary to multilobar community-acquired pneumonia 4. Leukocytosis, secondary to above 5. Hypotension requiring norepinephrine support 6. Chronic and ongoing tobacco dependence 7. Chronic obstructive pulmonary disease 8. Paranoid schizophrenia 9. Bipolar disorder 10. History of closed head injury 11. History of compartment syndrome of the left lower extremity Plan: 1. Keep right-sided pleural chest tube to low continuous wall suction -20 cm H 2O. Accurate I&O. 2. Mechanical ventilator, bronchodilators and corticosteroids management per pulmonary and critical care management. 3. Antibiotic management per pulmonary medicine. 4. Continue to monitor daily labs and chest x-rays. 5. DVT and GI prophylaxis. 6. Other comorbidities management per primary care service. 7. Nutrition management per dietitian's recommendations. 8. Wean norepinephrine drip as tolerated to keep a map equal to or greater than 70 mmHg. 9. More recommendations to follow based on patient's clinical course. Time with Patient: Greater than 30
[2019-05-20 11:58] LABS: Glucose,Whole Blood 121 mg/dL (75-99)
[2019-05-20] MEDS: NOREPINEPHRINE 32 MG in SODIUM CHLORIDE 0.9% 218 ML IV SCH (13:17)
--- NOTE | 2019-05-20 13:20 | CT ---
EXAMINATION TYPE: CT chest w con DATE OF EXAM: 05/20/2019 COMPARISON: 05/17/2019 HISTORY: Loculated pleural effusion, mass CT DLP: 422.1 mGycm Automated exposure control for dose reduction was used. CONTRAST: CT scan of the chest is performed with IV Contrast, patient injected with 100 mL of Isovue 300. FINDINGS: LUNGS: Redemonstrated are multiple predominantly right-sided loculated pleural effusions which have i mproved in the interval only slightly. Loculated components are difficult to measure. There is been i nterval placement of a right-sided chest tube which is in one of the loculated components posteriorly and laterally. Small layering pleural effusion component is noted. There is a small left-sided pleur al effusion. Interval development of coarse infiltrates are seen within the left upper lobe and left lower lobe which may reflect pneumonia or aspiration pneumonia. Infiltrate and/or atelectasis noted a t the right lower lobe. MEDIASTINUM: There are no greater than 1 cm hilar or mediastinal lymph nodes. No pericardial effusi on is seen. Thoracic aorta is of normal caliber. The heart is not enlarged. UPPER ABDOMEN: No significant abnormality appreciated. OTHER: No additional significant abnormality is seen. IMPRESSION: 1. Multiple loculated right-sided pleural effusions are noted which have improved only slightly in th e interval. As noted there is a right-sided chest tube in place without pneumothorax. Interval develo pment of a coarse infiltrate throughout the left lung may reflect pneumonia and/or aspiration. Right basilar atelectasis as well as associated infiltrate noted as well.
--- NOTE | 2019-05-20 13:30 | CDI ---
Documentation Clarification Form Date: 05/20/2019 1:19:14 PM From: Priya Barber CCS, CCDS Admit Date: 05/16/2019 7:32:00 PM Patient Name: Darryl Long Visit Number: [id number] Discharge Date: ATTENTION: The Clinical Documentation Specialists (CDI) and [facility] Coding Staff appreciate your assistance in clarifying documentation. Please respond to the clarification below the line at the bottom and electronically sign. The CDI & [facility] Coding staff will review the response and follow-up if needed. Please note: Queries are made part of the Legal Health Record. If you have any questions, please contact the author of this message via ITS. Dr. Edwin Navarrete: 54 yo male, admitted with multilobar pneumonia with parapneumonic pleural effusion, possible empyema causing sepsis. Acute delirium w/encephalopathy & Acute exacerbation of COPD. Patient history/risk factors: COPD, Compartment syndrome LLE, Bipolar, Schizophrenia, MRSA infection, possible ADHD, smokes 2ppd. Clinical Indicators: Presented with fever, tachycardia & congestion, patient mumbling, homeless, history of closed head injury. Possibly withdrawing from benzodiazepines. Vitals: T 101.1^, P 101^, R 18 (cough, sob), BP 110/65, PO 90 RA LAB: WBC 28.5^, Neut 25.1^, Na 127*. Blood Gases: pCO2 46^, pO2 50, HCO3 29^, Total CO2 31^, O2 Sat 86.2* Treatment: IV Zosyn & IV Levaquin, on day 3, patient was intubated & put on vent due to acute on chronic hypoxic & hypercapnic respiratory failure. IV fluid boluses, INH Albuterol, IV Valium, IV Propofol. In your professional opinion, can you please specify the type of shock if known? Shock, please document type if known or rule out: Septic Shock Suspected or known causative organism Any associated organ failure Hypovolemic Shock Cause Other, please specify Unable to determine (Last Revision: May 2017) Septic shock, POA MTDD
--- NOTE | 2019-05-20 15:16 | P.PN ---
Subjective Progress Note Date: 05/20/19 Principal diagnosis: Acute hypoxic respiratory failure secondary to multilobar pneumonia and right- sided loculated pleural effusion. This is a 54-year-old gentleman who follows with Dr. Srinivasan as his primary care physician. He has a history of bipolar disorder, closed head injury, schizophrenia, compartment syndrome of the left lower extremity, COPD, chronic and ongoing tobacco dependence. He presented to the emergency room yesterday with altered mental status and fever. The patient himself is a poor historian. He was refusing to give much information. He did feel as though he was withdrawing from benzodiazepines. Urine drug screen was positive for tricyclic antidepressants and benzodiazepines. Chest x-ray showed a new right pleural effusion and right lower lobe consolidation. White count 28.5. Hemoglobin 12.1. Creatinine 0.81. Influenza screen negative. Initial temp 101.1. He is admitted for suspected pneumonia. He is seen today in consultation on the regular medical floor. He is currently awake. He is a poor historian. Unable to give much information. Does complain of right sided chest p ain and pain with inhalation and coughing. He's maintaining O2 saturation in the low 90s on 2 L/m per nasal cannula. He's been afebrile. Somewhat tac hycardic. His been initiated on Zosyn and Levaquin. Lactated Ringer's at 125 ML's per hour. On 05/18/2019 the patient is doing well stable and is hemodynamic stable and afebrile. Still on today's of oxygen by nasal cannula pulse ox is 93%. CAT scan results were noted. Consult was placed for interventional radiology regarding a percutaneous predicted catheter insertion. The patient remains on a combination of antibiotics including Zosyn and Levaquin and vancomycin. The blood cultures negative. Reevaluated today on 05/19/2019, patient was already seen earlier by Dr. Rai, and he placed a right sided chest tube for his worsening right-sided pleural effusion. Patient is now on mechanical ventilation with assist control rate of 20 FiO2 of 50% PEEP of 12 tidal volume of 500. ABG this morning showed a pO2 of 83 pCO2 of 51 pH of 7.38 patient was earlier on 100% FiO2 and high PEEP prior to placement of the chest tube. Over 1500 mL of serosanguineous fluid removed from the right pleural space, results on the fluid are pending. Patient's brother is at bedside, and I updated the brother on his condition. Patient is hemodynamically stable, he is also on propofol, not requiring any pressors at this point. I was able to cut down the FiO2 to 50%, and kept him on a PEEP of 12. His peak airway pressure is in the high 20s, plateau pressure is 23 Patient was reevaluated today on 05/20/2019, remains in the ICU on mechanical ventilation. His ventilator settings are assist control rate of 20 FiO2 is 50% tidal volume is 500 PEEP is down to 8 and set of 12. Patient is off norep inephrine, remains on propofol at 60 mcg/kg/m. His peak airway pressure is in the high 20s plateau pressure is 18. His chest x-ray continues to show areas of loculated effusion, and this was confirmed further by doing a CT of the chest today clearly showed multiple areas of loculation and bilateral pneumonia. The fluid from the chest tube is clearly exudative in nature, with relatively low glucose, it could be malignant or could be infectious, I believe it is mostly infectious rather than malignant. Considering the abnormal CT of the chest, the patient may require thoracotomy and decortication otherwise I doubt that the patient will make dramatic improvement as long as we have ongoing loculated effusion. Thoracic surgery is aware of the condition, may have to approach his brother regarding surgical intervention since the patient refused surgery when he presented initially to the hospital. ABG this morning showed a pO2 of 120 pCO2 of 46 pH of 7.45. Electrodes are normal renal profile is normal WBC count is 23.2 hemoglobin is 10. Microbiology remains negative, blood cultures are negative, Gram stain on the pleural effusion showed no organisms. Patient remains sedated, hemodynamically stable, urine output is decent and acceptable. Objective - Vital Signs Vital signs: Vital Signs Temp 98.2 F 05/20/19 07:45 Pulse 71 05/20/19 13:11 Resp 20 05/20/19 11:45 BP 87/53 05/20/19 11:45 Pulse Ox 99 05/20/19 11:15 Intake & Output 05/19/19 05/20/19 05/20/19 18:59 06:59 18:59 Intake Total 3420.797 2827.396 1196.252 Output Total 3005 715 430 Balance -4222.888 4018.396 766.252 Weight 65.1 kg 73.5 kg Intake: IV 1425 1675 887.5 Lactated Ringers 1,000 ml 1200 1200 600 @ 100 mls/hr IV .Q10H [facility] Rx#:[id number] Levofloxacin 750Mg-D5w 100 Pmx 750 mg In Dextrose/ Water 1 150ml.bag @ 100 mls/hr IVPB Q24H [facility] Rx#: [id number] Piperacillin-Tazobactam 3 100 100 .375 gm In Sodium Chloride 0.9% 100 ml @ 25 mls/hr IVPB Q8HR [facility] Rx# :[id number] Vancomycin 1,250 mg In 125 375 187.5 Sodium Chloride 0.9% 250 ml @ 125 mls/hr IVPB Q12H [facility] Rx#:[id number] Intake, IV Titration 323.795 312.396 178.752 Amount Norepinephrine 32 mg In 0.036 34.276 2.585 Sodium Chloride 0.9% 218 ml @ 0.07 MCG/KG/MIN 2. 136 mls/hr IV .Q24H [facility] Rx#:[id number] Norepinephrine 4 mg In 136.655 Sodium Chloride 0.9% 250 ml @ 0.05 MCG/KG/MIN 11. 925 mls/hr IV .[id number] [facility] Rx#:[id number] Propofol 1,000 mg In 187.104 278.12 176.167 Empty Bag 1 bag @ Titrate IV .Q0M [facility] Rx#: [id number] Tube Feeding 290 130 Other 90 Output: Chest Tube Drainage 1320 50 Chest Tube Right Lateral 1320 50 Chest Gastric Drainage 90 Urine 1595 665 430 Other: Voiding Method Indwelling Catheter Indwelling Catheter Indwelling Catheter ABP, PAP, CO, CI - Last Documented Arterial Blood Pressure 95/48 - Exam Physical Exam: Revealed a 54-year-old white male on mechanical ventilation, remains on propofol at 60 mcg/kg/m. Head: Atraumatic, normocephalic. HEENT:[Neck is supple.] [No neck masses.] [No thyromegaly.] [No JVD.] Moist mucous membranes, endotracheal tube and orogastric tube are intact. Chest: [Symmetrical chest expansion, right-sided chest tube is noted, crackles at the bases, no rhonchi, no wheezes.] Cardiac Exam: [Normal S1 and S2, no S3 gallop, no murmur.] Abdomen: [Soft, nontender, no megaly, no rebound, no guarding, normal bowel sounds.] Extremities: [No clubbing, no edema, no cyanosis.] Neurological Exam: Not be assessed, patient is fully sedated. Psychiatric could not be assessed. Skin: No rashes. - Labs CBC & Chem 7: 05/20/19 05:10 05/20/19 05:10 Labs: Abnormal Lab Results - Last 24 Hours (Table) 05/19/19 05/19/19 05/20/19 Range/Units 17:23 18:13 00:08 WBC (3.8-10.6) k/uL RBC (4.30-5.90) m/uL Hgb (13.0-17.5) gm/dL Hct (39.0-53.0) % Neutrophils # (1.3-7.7) k/uL Lymphocytes # (1.0-4.8) k/uL Monocytes # (0-1.0) k/uL ABG pCO2 (35-45) mmHg ABG pO2 (83-108) mmHg ABG HCO3 (21-25) mmol/L ABG Total CO2 (19-24) mmol/L ABG O2 Saturation (94-97) % Carbon Dioxide (22-30) mmol/L Creatinine (0.66-1.25) mg/dL Glucose (74-99) mg/dL POC Glucose (mg/dL) 196 H 152 H 216 H (75-99) mg/dL 05/20/19 05/20/19 05/20/19 Range/Units 05:10 05:10 06:02 WBC 23.2 H (3.8-10.6) k/uL RBC 3.27 L (4.30-5.90) m/uL Hgb 10.0 L (13.0-17.5) gm/dL Hct 30.7 L (39.0-53.0) % Neutrophils # 21.3 H (1.3-7.7) k/uL Lymphocytes # 0.6 L (1.0-4.8) k/uL Monocytes # 1.1 H (0-1.0) k/uL ABG pCO2 (35-45) mmHg ABG pO2 (83-108) mmHg ABG HCO3 (21-25) mmol/L ABG Total CO2 (19-24) mmol/L ABG O2 Saturation (94-97) % Carbon Dioxide 31 H (22-30) mmol/L Creatinine 0.35 L (0.66-1.25) mg/dL Glucose 152 H (74-99) mg/dL POC Glucose (mg/dL) 157 H (75-99) mg/dL 05/20/19 05/20/19 Range/Units 07:25 11:55 WBC (3.8-10.6) k/uL RBC (4.30-5.90) m/uL Hgb (13.0-17.5) gm/dL Hct (39.0-53.0) % Neutrophils # (1.3-7.7) k/uL Lymphocytes # (1.0-4.8) k/uL Monocytes # (0-1.0) k/uL ABG pCO2 46 H (35-45) mmHg ABG pO2 120 H (83-108) mmHg ABG HCO3 31 H (21-25) mmol/L ABG Total CO2 33 H (19-24) mmol/L ABG O2 Saturation 98.4 H (94-97) % Carbon Dioxide (22-30) mmol/L Creatinine (0.66-1.25) mg/dL Glucose (74-99) mg/dL POC Glucose (mg/dL) 121 H (75-99) mg/dL Microbiology - Last 24 Hours (Table) 05/19/19 12:20 Gram Stain - Preliminary Pleural Fluid Body Fluid Culture - Preliminary 05/19/19 12:20 Acid Fast Bacilli Smear - Final Pleural Fluid Acid Fast Bacilli Culture - Preliminary 05/16/19 18:43 Blood Culture - Preliminary Blood No Growth after 72 hours 05/19/19 12:20 Fungal Culture - Preliminary Pleural Fluid Assessment and Plan Assessment: Impression: 1 acute hypoxic respiratory failure requiring intubation and mechanical vent ilation. This is secondary to multilobar pneumonia and possible complicated right-sided pleural effusion. Status post tube thoracostomy postoperative day #1. 2 sepsis secondary to pneumonia, and loculated pleural effusion 3 history of multiple comorbidities including bipolar disorder, schizophrenia, and history of head injury 4 history of compartment syndrome of the left lower extremity 5 underlying COPD severity of which is unclear. 6 chronic and ongoing tobacco dependence syndrome. Recommendation: Continue ventilatory support Continue hemodynamic support Continue nutritional support Await the results of the cultures from the pleural effusion may consider bronchoscopy and lavage Continue empiric antibiotics presently on Merrem and vancomycin as well as Levaquin Continue GI and DVT prophylaxis. Discussed with thoracic surgery patient may eventually require formal thoracot yair and decortication since his CT of the chest today seems to be quite concerning. Prognosis remains extremely poor and guarded, we'll continue to follow. Critical care time is 35 minutes. Time with Patient: Greater than 30
[2019-05-20 18:33] LABS: Glucose,Whole Blood 152 mg/dL (75-99)
[2019-05-20] MEDS: LEVOFLOXACIN 750MG-D5W PMX 750 MG in DEXTROSE/WATER 1 150ML.BAG IVPB SCH (18:34)
--- NOTE | 2019-05-20 21:20 | P.PN ---
Progress Note - Text Progress Note Date: 05/20/19 Chief Complaint: Fever and congested Interval history: This is a 54-year-old patient of Dr. andino from [place]. Unable to get much of history from the patient as he mumbles then he remains quite. I gather from the ER notes that he apparently is homeless 2. Patient's history include closed head injury bipolar neuropathy COPD. Patient is an active smoker at least 2 packs a day. He did present to the ER stating that he is withdrawing from benzodiazepines and he is out of the same. He does follow with Dr. Rivero from out of the [facility]. Patient is very congested chronic cough so tired and is not able to expectorate. Having fever and tachycardia when initially presented. Was started on IV antibiotics. Pulmonary was consulted. Patient just about wakes up to speak that goes back to sleep. Patient was diagnosed to have severe pneumonia, parapneumonic effusion, sepsis, suspected empyema delirium, COPD exacerbation. Cardiothoracic surgery was consulted with a view to chest tube/thoracotomy On May 19, Dr. Rai put in a chest tube. About 1100 mL of serosanguineous fluid was obtained. Patient intubated. Today-ICU. On the ventilator. FiO2 50% and PEEP of 10-12. Patient is off levo fed drip. On IV propofol. Also 2 feeding at 40 mL an hour. Patient's mother's sister and brother are present. Review of systems: cannot be obtained as patient does. intubated Active Medications Acetaminophen (Tylenol Tab) 650 mg PO Q6HR PRN PRN Reason: Fever and/ or Pain Last Admin: 05/18/19 17:12 Dose: 650 mg Documented by: Albuterol/Ipratropium (Duoneb 0.5 Mg-3 Mg/3 Ml Soln) 3 ml INHALATION RT-QID [facility] Last Admin: 05/20/19 20:51 Dose: 3 ml Documented by: Aripiprazole (Abilify) 10 mg PO DAILY [facility] Last Admin: 05/20/19 08:42 Dose: 10 mg Documented by: Baclofen (Lioresal) 5 mg PO QID PRN PRN Reason: Muscle Spasm Buspirone HCl (Buspar) 10 mg PO BID [facility] Last Admin: 05/20/19 21:09 Dose: 10 mg Documented by: Chlorhexidine Gluconate (Peridex) 15 ml MUCOUS MEM BID [facility] Last Admin: 05/20/19 21:09 Dose: 15 ml Documented by: Diazepam (Valium) 5 mg IVP Q4H PRN PRN Reason: Seizures Doxepin HCl (Sinequan) 150 mg PO HS [facility] Last Admin: 05/19/19 22:24 Dose: 150 mg Documented by: Enoxaparin Sodium (Lovenox) 40 mg SQ DAILY [facility] Last Admin: 05/20/19 08:21 Dose: 40 mg Documented by: Gabapentin (Neurontin) 600 mg PO TID [facility] Last Admin: 05/20/19 21:10 Dose: 600 mg Documented by: Levofloxacin 750 mg/ IV (Solution) 150 mls @ 100 mls/hr IVPB Q24H [facility] Stop: 05/29/19 19:31 Last Admin: 05/20/19 18:34 Dose: 100 mls/hr Documented by: Piperacillin Sod/Tazobactam (Sod 3.375 gm/ Sodium Chloride) 100 mls @ 25 mls/hr IVPB Q8HR [facility] Stop: 05/27/19 08:01 Last Admin: 05/20/19 16:59 Dose: 25 mls/hr Documented by: Lactated Ringer's (Lactated Ringers) 1,000 mls @ 100 mls/hr IV .Q10H [facility] Last Admin: 05/20/19 16:58 Dose: 100 mls/hr Documented by: Propofol 1,000 mg/ IV Solution 100 mls @ 0 mls/hr IV .Q0M [facility]; Protocol Last Admin: 05/20/19 21:14 Dose: 60 mcg/kg/min, 26.46 mls/hr Documented by: Norepinephrine Bitartrate 32 (mg/ Sodium Chloride) 250 mls @ 2.136 mls/hr IV .Q24H [facility]; Protocol Last Admin: 05/20/19 13:17 Dose: Not Given Documented by: Vancomycin HCl 1,250 mg/ (Sodium Chloride) 250 mls @ 125 mls/hr IVPB Q8H [facility] Last Admin: 05/20/19 21:10 Dose: 125 mls/hr Documented by: Insulin Aspart (Novolog) 0 unit SQ Q6HR [facility]; Protocol Last Admin: 05/20/19 18:34 Dose: 1 unit Documented by: Ketorolac Tromethamine (Toradol) 15 mg IVP Q6HR PRN PRN Reason: Pain Stop: 05/23/19 13:31 Last Admin: 05/18/19 13:45 Dose: 15 mg Documented by: Lorazepam (Ativan) 1 mg IV Q6HR PRN PRN Reason: Anxiety Last Admin: 05/18/19 18:23 Dose: 1 mg Documented by: Lurasidone HCl (Latuda) 20 mg PO BID-W/MEALS [facility] Last Admin: 05/20/19 18:34 Dose: 20 mg Documented by: Methylprednisolone Sodium Succinate (Solu-Medrol) 40 mg IV Q8HR [facility] Last Admin: 05/20/19 16:59 Dose: 40 mg Documented by: Miscellaneous Information (Pneumonia Protocol Utilized) 1 each PO ONCE PRN PRN Reason: Per Protocol Miscellaneous Information (Vancomycin Trough Due) 1 each MISCELLANE ONCE ONE Stop: 05/21/19 05:01 Miscellaneous Information (Rx Info: Iv Contrast Was Given) 1 each MISCELLANE DAILY PRN PRN Reason: Per Protocol Stop: 05/22/19 11:07 Naloxone HCl (Narcan) 0.2 mg IV Q2M PRN PRN Reason: Opioid Reversal Nicotine (Habitrol 21mg/24hr Patch) 1 patch TRANSDERM DAILY [facility] Last Admin: 05/20/19 08:20 Dose: 1 patch Documented by: Buprenorphine Hcl [ (Subutex] 8 Mg) 8 mg SUBLINGUAL AC-TID [facility] Last Admin: 05/20/19 18:27 Dose: Not Given Documented by: Pantoprazole Sodium (Protonix) 40 mg IV DAILY [facility] Last Admin: 05/20/19 08:21 Dose: 40 mg Documented by: Physical examination: VITAL SIGNS: 98, 70, 14, 87/53, 94% on the ventilator GENERAL: Laying in bed, intubated. EYES: Pupils equal. Conjunctiva pale HEENT: External appearance of nose and ears normal, oral cavity dry.endotracheal tube in place NECK: JVD unable to assess; masses not palpable. HEART: First and second heart sounds are normal; no edema. LUNGS: Respiratory rate increased, diminished breath sounds coarse crackles on the right base posteriorly. right-sided chest tube in place ABDOMEN: Soft, nontender, liver spleen not palpable, no masses palpable. PSYCH: unable to assess as patient is intubated INVESTIGATIONS, reviewed in the clinical context: White count 23.2 hemoglobin 10 platelets 404 potassium 4.[address] chest-multiple loculated right-sided pleural effusion are again noted. On the sliding interval improvement.. Interval development of coarse infiltrate for the left lung. Previous investigations White count 28.5 hemoglobin 12.1 sodium 127 potassium 4.1. Creatinine 0.81 albumin 3.0 UA negative for leukoesterase and nitrites Chest x-ray film personally reviewed by me-shows dense consolidation of the right side with questionable fluid Computed tomography scan of the chest shows complex lobular take fluid collection in the right extending across the midline diffuse airspace disease in the right with bullous changes in the apex lobes no solid mass reported Assessment: -Bilateral multilobar pneumonia with right parapneumonic effusion with loculated fluid, with sepsis, slow to respond -Right-sided chest tube placed, initially about 1100 mL of fluid obtained -Acute hypoxic respiratory failure from above, now on ventilator support -Acute delirium with encephalopathy secondary to underlying sepsis, -Acute COPD exacerbation in a current smoker, slow to respond -nicotine dependence patient's cigarette smoker -Idiopathic peripheral neuropathy -Bipolar disorder -Hyponatremia -Hypoalbuminemia could be an acute phase reactant Plan: Patient remains on broad-spectrum antibiotics including IV Levaquin, IV Zosyn, vancomycin. Often levo fed drip. On propofol drip. Prognosis remains guarded. Patient will need a chest tube. Cardiothoracic surgery will be discussing with the family to proceed with a chest tube that patient had refused earlier. Pleural fluid cultures are pending. Patient remains rather sick. Discussed with the family the bedside.
[2019-05-20] MEDS: DOXEPIN 25 MG CAP PO SCH (21:55)
--- NOTE | 2019-05-20 22:27 | P.PN ---
Subjective Progress Note Date: 05/20/19 54-year-old male who is a long-standing history of bipolar disorder schizophrenia and a closed head injury presents to the emergency center with increasing shortness of breath. It is noted that before his intubation the patient was a poor historian and he was concerned that he was having withdrawal from benzodiazepine therapy. At admission his chest x-ray was abnormal with a right pleural effusion and right lower lobe consolidation. He had evidence of fever and leukocytosis as well as pleuritic chest pain. He was tachycardic and was resuscitated and treated with antibiotic therapy of Zosyn and Levaquin. The patient's status has declined. He developed respiratory failure requiring i ntubation sedation and mechanical ventilation. He also had a chest tube applied to the right pleural effusion. His required vasopressor therapy that is also being titrated. His oxygenation is improved he is on a lower FiO2 but still a PEEP of 12. He is on propofol and very comfortable. 05/20/2018 the patient is remaining intubated sedated and mechanically ventilated. He is otherwise quite comfortable. We'll rule him for a follow-up computed tomography scan to evaluate his pulmonary status and pneumonia. His temperature was 1013 is now 98.2. Objective - Vital Signs Vital signs: Vital Signs Temp 98.2 F 05/20/19 17:00 Pulse 75 05/20/19 21:00 Resp 20 05/20/19 18:30 BP 90/56 05/20/19 18:30 Pulse Ox 100 05/20/19 18:30 Intake & Output 05/20/19 05/20/19 05/21/19 06:59 18:59 06:59 Intake Total 2367.396 2500.252 Output Total 715 1160 Balance 8589.892 1653.252 Weight 73.5 kg Intake: IV 1675 1587.5 Lactated Ringers 1,000 ml 1200 1200 @ 100 mls/hr IV .Q10H [facility] Rx#:[id number] Levofloxacin 750Mg-D5w 100 100 Pmx 750 mg In Dextrose/ Water 1 150ml.bag @ 100 mls/hr IVPB Q24H [facility] Rx#: [id number] Piperacillin-Tazobactam 3 100 .375 gm In Sodium Chloride 0.9% 100 ml @ 25 mls/hr IVPB Q8HR [facility] Rx# :[id number] Vancomycin 1,250 mg In 375 187.5 Sodium Chloride 0.9% 250 ml @ 125 mls/hr IVPB Q12H [facility] Rx#:[id number] Intake, IV Titration 312.396 278.752 Amount Norepinephrine 32 mg In 34.276 2.585 Sodium Chloride 0.9% 218 ml @ 0.07 MCG/KG/MIN 2. 136 mls/hr IV .Q24H [facility] Rx#:[id number] Propofol 1,000 mg In 278.12 276.167 Empty Bag 1 bag @ Titrate IV .Q0M [facility] Rx#: [id number] Tube Feeding 290 544 Other 90 90 Output: Chest Tube Drainage 50 80 Chest Tube Right Lateral 50 80 Chest Urine 665 1080 Other: Voiding Method Indwelling Catheter Indwelling Catheter ABP, PAP, CO, CI - Last Documented Arterial Blood Pressure 104/59 - Exam 54 -year-old male intubated sedated and mechanically ventilated HEENT: Anicteric conjunctiva are pink and moist nasal mucosa grossly intact without significant lesions, there is no thrush Around the endotracheal tube, he is edentulous Neck: The neck is supple without significant lymphadenopathy or thyromegaly. Lungs:Symmetrical bilateral air entry decreased breath sounds at bilateral bases bronchial sounds right base Heart: Regular rate and rhythm with an audible S1-S2, no S3 no S4. There is no significant murmur click or rub, PMI was nondisplaced. Abdomen: Positive bowel sounds soft and nontender without palpable masses or organomegaly. There was no guarding or rebound. Extremities: The upper extremities have excellent pulses they are symmetric, no significant petechiae or telangiectasia. No splinter hemorrhages were noted. The lower extremities are free from significant edema. The peripheral pulses were 2+ and symmetric. Neuro: sedated on the ventilator - Labs CBC & Chem 7: 05/20/19 05:10 05/20/19 05:10 Labs: Abnormal Lab Results - Last 24 Hours (Table) 05/20/19 05/20/19 05/20/19 Range/Units 00:08 05:10 05:10 WBC 23.2 H (3.8-10.6) k/uL RBC 3.27 L (4.30-5.90) m/uL Hgb 10.0 L (13.0-17.5) gm/dL Hct 30.7 L (39.0-53.0) % Neutrophils # 21.3 H (1.3-7.7) k/uL Lymphocytes # 0.6 L (1.0-4.8) k/uL Monocytes # 1.1 H (0-1.0) k/uL ABG pCO2 (35-45) mmHg ABG pO2 (83-108) mmHg ABG HCO3 (21-25) mmol/L ABG Total CO2 (19-24) mmol/L ABG O2 Saturation (94-97) % Carbon Dioxide 31 H (22-30) mmol/L Creatinine 0.35 L (0.66-1.25) mg/dL Glucose 152 H (74-99) mg/dL POC Glucose (mg/dL) 216 H (75-99) mg/dL 05/20/19 05/20/19 05/20/19 Range/Units 06:02 07:25 11:55 WBC (3.8-10.6) k/uL RBC (4.30-5.90) m/uL Hgb (13.0-17.5) gm/dL Hct (39.0-53.0) % Neutrophils # (1.3-7.7) k/uL Lymphocytes # (1.0-4.8) k/uL Monocytes # (0-1.0) k/uL ABG pCO2 46 H (35-45) mmHg ABG pO2 120 H (83-108) mmHg ABG HCO3 31 H (21-25) mmol/L ABG Total CO2 33 H (19-24) mmol/L ABG O2 Saturation 98.4 H (94-97) % Carbon Dioxide (22-30) mmol/L Creatinine (0.66-1.25) mg/dL Glucose (74-99) mg/dL POC Glucose (mg/dL) 157 H 121 H (75-99) mg/dL 05/20/19 Range/Units 18:30 WBC (3.8-10.6) k/uL RBC (4.30-5.90) m/uL Hgb (13.0-17.5) gm/dL Hct (39.0-53.0) % Neutrophils # (1.3-7.7) k/uL Lymphocytes # (1.0-4.8) k/uL Monocytes # (0-1.0) k/uL ABG pCO2 (35-45) mmHg ABG pO2 (83-108) mmHg ABG HCO3 (21-25) mmol/L ABG Total CO2 (19-24) mmol/L ABG O2 Saturation (94-97) % Carbon Dioxide (22-30) mmol/L Creatinine (0.66-1.25) mg/dL Glucose (74-99) mg/dL POC Glucose (mg/dL) 152 H (75-99) mg/dL Microbiology - Last 24 Hours (Table) 05/16/19 18:43 Blood Culture - Preliminary Blood No Growth after 96 hours 05/19/19 12:20 Gram Stain - Preliminary Pleura l Fluid Body Fluid Culture - Preliminary 05/19/19 12:20 Acid Fast Bacilli Smear - Final Pleural Fluid Acid Fast Bacilli Culture - Preliminary Microbiology 05/16/19 18:43 Blood Blood Culture - Preliminary No Growth after 96 hours 05/19/19 12:20 Pleural Fluid Gram Stain - Preliminary 05/19/19 12:20 Pleural Fluid Body Fluid Culture - Preliminary 05/19/19 12:20 Pleural Fluid Acid Fast Bacilli Smear - Final 05/19/19 12:20 Pleural Fluid Acid Fast Bacilli Culture - Preliminary 05/19/19 12:20 Pleural Fluid Fungal Culture - Preliminary 05/19/19 00:25 Sputum Sputum Culture - Preliminary Assessment and Plan (1) Community acquired bacterial pneumonia Narrative/Plan: 54-year-old male it is a complex past medical history with his underlying mental illness and history of head trauma with significant compromise status. Presents to hospital with significant shortness of breath but evidence of the extensive pleural effusion to the right chest and the pneumonia. Chest tube is in place and is receiving appropriate antibiotic therapy this time with Zosyn and Levaquin with his intensive care unit stay and concerns for potential gram-negative pneumonia as well as aspiration. Pleural fluid has been sent as a sputum culture to further help direct antibiotic therapy. The patient has had some improvement of his status with decreasing oxygen requirements throughout the day but still remains on PEEP of 12. Hemodynamically he is stable to improved requiring less vasopressor therapy. Adequate urinary output is noted. He has an extensive leukocytosis directly related to his extensive pneumonia and possible empyema. 05/20/2019 the patient is requiring ongoing mechanical ventilation. Cultures are pending from his sputum as well as the drainage from the pleural effusion. Continue current antibiotic therapy. Continue with supportive care. Is noted his PEEP did decrease. Vasopressor therapy. Cultures to further help direct antibiotic therapy. Current Visit: Yes Status: Acute Code(s): J15.9 - UNSPECIFIED BACTERIAL PNEUMONIA SNOMED Code(s): 384899978 (2) Acute respiratory failure with hypoxia and hypercapnia Current Visit: Yes Status: Acute Code(s): J96.01 - ACUTE RESPIRATORY FAILURE WITH HYPOXIA; J96.02 - ACUTE RESPIRATORY FAILURE WITH HYPERCAPNIA SNOMED Code(s): 397807817 (3) Leukocytosis Current Visit: Yes Status: Acute Code(s): D72.829 - ELEVATED WHITE BLOOD CELL COUNT, UNSPECIFIED SNOMED Code(s): 247326280
[2019-05-20 23:47] LABS: Glucose,Whole Blood 151 mg/dL (75-99)
[2019-05-21 04:16] LABS: HCT 30.2 % (39.0-53.0); HGB 9.2 gm/dL (13.0-17.5); MCHC 30.5 g/dL (31.0-37.0); MCV 98.4 fL (80.0-100.0); Mean Platelet Volume 7.4; Platelet Count 388 k/uL (150-450); RBC 3.07 m/uL (4.30-5.90); RDW 14.6 % (11.5-15.5); WBC 13.8 k/uL (3.8-10.6)
[2019-05-21] MEDS: PROPOFOL 1,000 MG in EMPTY BAG 1 BAG IV SCH ×4 (04:20→17:32)
[2019-05-21 04:34] LABS: African American GFR (CKD) >90 (>60 ml/min/1.73 sqM); Anion Gap 3 mmol/L; Blood Urea Nitrogen 15 mg/dL (9-20); Calcium 8.2 mg/dL (8.4-10.2); Carbon Dioxide 32 mmol/L (22-30); Chloride 105 mmol/L (98-107); Glucose 153 mg/dL (74-99); Potassium 4.1 mmol/L (3.5-5.1); Sodium 140 mmol/L (137-145)
[2019-05-21] MEDS: LACTATED RINGERS 1,000 ML IV SCH ×2 (04:59→17:33)
[2019-05-21] MEDS ORDERED: VANCOMYCIN TROUGH DUE 1 EACH MISC MISCELLANE ONE (05:00)
[2019-05-21 06:06] LABS: Glucose,Whole Blood 143 mg/dL (75-99)
[2019-05-21] MEDS: INSULIN ASPART (NovoLOG) 100 UNIT/ML VIAL SQ SCH ×3 (06:22→20:18)
[2019-05-21] MEDS: VANCOMYCIN 1,250 MG in SODIUM CHLORIDE 0.9% 250 ML IVPB SCH (06:23)
[2019-05-21] MEDS: LURASIDONE 20 MG TAB PO SCH ×2 (06:24→17:44)
[2019-05-21] MEDS: Buprenorphine Hcl [Subutex] 8 MG SUBLINGUAL SCH ×3 (06:24→20:18)
[2019-05-21 07:09] LABS: ABG Base Excess 8.9 mmol/L; ABG HCO3 32 mmol/L (21-25); ABG Oxygen Saturation 97.9 % (94-97); ABG PCO2 44 mmHg (35-45); ABG PH 7.48 (7.35-7.45); ABG PO2 99 mmHg (83-108); ABG TCO2 34 mmol/L (19-24)
--- NOTE | 2019-05-21 07:49 | XR ---
EXAMINATION TYPE: XR chest 1V portable DATE OF EXAM: 05/21/2019 HISTORY: Shortness of breath. COMPARISON: 05/20/2019 TECHNIQUE: Single view of the chest is submitted. FINDINGS: Demonstrated are scattered senescent parenchymal change. Endotracheal tube unchanged in position. NG tube noted with its distal port at the GE junction. Centr al venous line also unchanged. Right-sided chest tube unchanged in position. Multiple lobulated masslike areas compatible with locul ated pleural effusion identified. Smaller layering basilar pleural effusions seen. Use infiltrate ti ntified throughout the left lung unchanged from prior study. The heart is stable. Hilar and mediastinal structures are within normal limits. Degenerative changes are seen of the dorsal spine. IMPRESSION: 1. Stable chest.
[2019-05-21] MEDS ORDERED: ALTEPLASE 10 MG in SODIUM CHLORIDE 0.9% 100 ML IRRIGATION ONE (08:00)
[2019-05-21] MEDS: IPRATROPIUM-ALBUTEROL 3 ML NEB INHALATION SCH ×4 (08:25→20:42)
[2019-05-21] MEDS: NICOTINE 21MG/24HR PATCH TRANSDERM SCH (09:18)
[2019-05-21] MEDS: methylPREDNISolone SOD SUCCI 40 MG/ML 1 ML VIAL IV SCH ×2 (09:18→16:36)
[2019-05-21] MEDS: PIPERACILLIN-TAZOBACTAM 3.375 GM in SODIUM CHLORIDE 0.9% 100 ML IVPB SCH ×3 (09:18→16:54)
[2019-05-21] MEDS: CHLORHEXIDINE GLUCONATE 15 ML CUP MUCOUS MEM SCH ×2 (09:19→20:57)
[2019-05-21] MEDS: GABAPENTIN 300 MG CAP PO SCH ×3 (09:19→21:00)
[2019-05-21] MEDS: PANTOPRAZOLE 40 MG/10 ML VIAL IV SCH (09:20)
[2019-05-21] MEDS: ENOXAPARIN 40 MG/0.4 ML SYRINGE SQ SCH (09:20)
[2019-05-21] MEDS: NOREPINEPHRINE 32 MG in SODIUM CHLORIDE 0.9% 218 ML IV SCH ×2 (11:00→22:41)
[2019-05-21 12:16] LABS: Glucose,Whole Blood 113 mg/dL (75-99)
--- NOTE | 2019-05-21 12:59 | P.PN ---
Subjective Progress Note Date: 05/21/19 Principal diagnosis: Acute hypoxic respiratory failure secondary to multilobar pneumonia and right- sided loculated pleural effusion. This is a 54-year-old gentleman who follows with Dr. Srinivasan as his primary care physician. He has a history of bipolar disorder, closed head injury, schizophrenia, compartment syndrome of the left lower extremity, COPD, chronic and ongoing tobacco dependence. He presented to the emergency room yesterday with altered mental status and fever. The patient himself is a poor historian. He was refusing to give much information. He did feel as though he was withdrawing from benzodiazepines. Urine drug screen was positive for tricyclic antidepressants and benzodiazepines. Chest x-ray showed a new right pleural effusion and right lower lobe consolidation. White count 28.5. Hemoglobin 12.1. Creatinine 0.81. Influenza screen negative. Initial temp 101.1. He is admitted for suspected pneumonia. He is seen today in consultation on the regular medical floor. He is currently awake. He is a poor historian. Unable to give much information. Does complain of right sided chest p ain and pain with inhalation and coughing. He's maintaining O2 saturation in the low 90s on 2 L/m per nasal cannula. He's been afebrile. Somewhat tac hycardic. His been initiated on Zosyn and Levaquin. Lactated Ringer's at 125 ML's per hour. On 05/18/2019 the patient is doing well stable and is hemodynamic stable and afebrile. Still on today's of oxygen by nasal cannula pulse ox is 93%. CAT scan results were noted. Consult was placed for interventional radiology regarding a percutaneous predicted catheter insertion. The patient remains on a combination of antibiotics including Zosyn and Levaquin and vancomycin. The blood cultures negative. Reevaluated today on 05/19/2019, patient was already seen earlier by Dr. Rai, and he placed a right sided chest tube for his worsening right-sided pleural effusion. Patient is now on mechanical ventilation with assist control rate of 20 FiO2 of 50% PEEP of 12 tidal volume of 500. ABG this morning showed a pO2 of 83 pCO2 of 51 pH of 7.38 patient was earlier on 100% FiO2 and high PEEP prior to placement of the chest tube. Over 1500 mL of serosanguineous fluid removed from the right pleural space, results on the fluid are pending. Patient's brother is at bedside, and I updated the brother on his condition. Patient is hemodynamically stable, he is also on propofol, not requiring any pressors at this point. I was able to cut down the FiO2 to 50%, and kept him on a PEEP of 12. His peak airway pressure is in the high 20s, plateau pressure is 23 Patient was reevaluated today on 05/20/2019, remains in the ICU on mechanical ventilation. His ventilator settings are assist control rate of 20 FiO2 is 50% tidal volume is 500 PEEP is down to 8 and set of 12. Patient is off norep inephrine, remains on propofol at 60 mcg/kg/m. His peak airway pressure is in the high 20s plateau pressure is 18. His chest x-ray continues to show areas of loculated effusion, and this was confirmed further by doing a CT of the chest today clearly showed multiple areas of loculation and bilateral pneumonia. The fluid from the chest tube is clearly exudative in nature, with relatively low glucose, it could be malignant or could be infectious, I believe it is mostly infectious rather than malignant. Considering the abnormal CT of the chest, the patient may require thoracotomy and decortication otherwise I doubt that the patient will make dramatic improvement as long as we have ongoing loculated effusion. Thoracic surgery is aware of the condition, may have to approach his brother regarding surgical intervention since the patient refused surgery when he presented initially to the hospital. ABG this morning showed a pO2 of 120 pCO2 of 46 pH of 7.45. Electrodes are normal renal profile is normal WBC count is 23.2 hemoglobin is 10. Microbiology remains negative, blood cultures are negative, Gram stain on the pleural effusion showed no organisms. Patient remains sedated, hemodynamically stable, urine output is decent and acceptable. Reevaluated today on 05/21/2019, remains on mechanical ventilation, in the intensive care unit. Patient is sedated, on fall mostly. His ventilator settings are unchanged, tidal volume of 500 assist control rate of 20 FiO2 is 50% PEEP is 8. ABG today showed a pO2 of 99 pCO2 of 44 pH of 7.48. Cultures from the pleural effusion remain negative. WBC count 13.8 hemoglobin is 9.2 lites are normal renal profile is normal. Patient is hemodynamically stable, not requiring any pressors at present. He is on propofol at 60 mcg/kg/m. IV fluid is at 100 mL/h. And he remains on antibiotics in the form of Zosyn and vancomycin. These are given empirically. No specific positive culture has been noted, hence I plan to bronchoscope the patient today and lavage his right lung. Patient was seen by thoracic surgery, considering decortication, but in the meantime trying thrombolytic therapy via chest tube. Objective - Vital Signs Vital signs: Vital Signs Temp 98.6 F 05/21/19 04:00 Pulse 68 05/21/19 11:47 Resp 20 05/21/19 12:00 BP 100/60 05/21/19 11:00 Pulse Ox 99 05/21/19 11:00 Intake & Output 05/20/19 05/21/19 05/21/19 18:59 06:59 18:59 Intake Total 2500.252 2481.33 888 Output Total 1160 595 380 Balance 3834.929 9523.33 508 Weight 76.5 kg Intake: IV 1587.5 1700 600 Lactated Ringers 1,000 ml 1200 1100 500 @ 100 mls/hr IV .Q10H [facility] Rx#:[id number] Levofloxacin 750Mg-D5w 100 Pmx 750 mg In Dextrose/ Water 1 150ml.bag @ 100 mls/hr IVPB Q24H [facility] Rx#: [id number] Piperacillin-Tazobactam 3 100 100 100 .375 gm In Sodium Chloride 0.9% 100 ml @ 25 mls/hr IVPB Q8HR [facility] Rx# :[id number] Vancomycin 1,250 mg In 187.5 Sodium Chloride 0.9% 250 ml @ 125 mls/hr IVPB Q12H [facility] Rx#:[id number] Vancomycin 1,250 mg In 250 Sodium Chloride 0.9% 250 ml @ 125 mls/hr IVPB Q12HR [facility] Rx#:[id number] Vancomycin 1,250 mg In 250 Sodium Chloride 0.9% 250 ml @ 125 mls/hr IVPB Q8H [facility] Rx#:[id number] Intake, IV Titration 278.752 157.33 100 Amount Norepinephrine 32 mg In 2.585 Sodium Chloride 0.9% 218 ml @ 0.07 MCG/KG/MIN 2. 136 mls/hr IV .Q24H [facility] Rx#:[id number] Propofol 1,000 mg In 276.167 157.33 100 Empty Bag 1 bag @ Titrate IV .Q0M [facility] Rx#: [id number] Tube Feeding 544 564 188 Other 90 60 Output: Chest Tube Drainage 80 60 Chest Tube Right Lateral 80 60 Chest Urine 1080 535 380 Other: Voiding Method Indwelling Catheter Indwelling Catheter Indwelling Catheter ABP, PAP, CO, CI - Last Documented Arterial Blood Pressure 102/53 - Exam Physical Exam: 54-year-old on mechanical ventilation. Head: Atraumatic, normocephalic. HEENT:[Neck is supple.] [No neck masses.] [No thyromegaly.] [No JVD.] Moist mucous membranes, endotracheal tube and orogastric tube are intact. Chest: [Symmetrical chest expansion, right-sided chest tube is noted, crackles at the bases, no rhonchi, no wheezes.] Cardiac Exam: [Normal S1 and S2, no S3 gallop, no murmur.] Abdomen: [Soft, nontender, no megaly, no rebound, no guarding, normal bowel sounds.] Extremities: [No clubbing, no edema, no cyanosis.] Neurological Exam: Not be assessed, patient is fully sedated. We will start addressing sedation interruption in the next 24 hours. Psychiatric could not be assessed. Skin: No rashes. - Labs CBC & Chem 7: 05/21/19 04:04 05/21/19 04:04 Labs: Abnormal Lab Results - Last 24 Hours (Table) 05/20/19 05/20/19 05/21/19 Range/Units 18:30 23:21 04:04 WBC 13.8 H (3.8-10.6) k/uL RBC 3.07 L (4.30-5.90) m/uL Hgb 9.2 L (13.0-17.5) gm/dL Hct 30.2 L (39.0-53.0) % MCHC 30.5 L (31.0-37.0) g/dL ABG pH (7.35-7.45) ABG HCO3 (21-25) mmol/L ABG Total CO2 (19-24) mmol/L ABG O2 Saturation (94-97) % Carbon Dioxide (22-30) mmol/L Creatinine (0.66-1.25) mg/dL Glucose (74-99) mg/dL POC Glucose (mg/dL) 152 H 151 H (75-99) mg/dL Calcium (8.4-10.2) mg/dL 05/21/19 05/21/19 05/21/19 Range/Units 04:04 06:03 07:07 WBC (3.8-10.6) k/uL RBC (4.30-5.90) m/uL Hgb (13.0-17.5) gm/dL Hct (39.0-53.0) % MCHC (31.0-37.0) g/dL ABG pH 7.48 H (7.35-7.45) ABG HCO3 32 H (21-25) mmol/L ABG Total CO2 34 H (19-24) mmol/L ABG O2 Saturation 97.9 H (94-97) % Carbon Dioxide 32 H (22-30) mmol/L Creatinine 0.39 L (0.66-1.25) mg/dL Glucose 153 H (74-99) mg/dL POC Glucose (mg/dL) 143 H (75-99) mg/dL Calcium 8.2 L (8.4-10.2) mg/dL 05/21/19 Range/Units 12:12 WBC (3.8-10.6) k/uL RBC (4.30-5.90) m/uL Hgb (13.0-17.5) gm/dL Hct (39.0-53.0) % MCHC (31.0-37.0) g/dL ABG pH (7.35-7.45) ABG HCO3 (21-25) mmol/L ABG Total CO2 (19-24) mmol/L ABG O2 Saturation (94-97) % Carbon Dioxide (22-30) mmol/L Creatinine (0.66-1.25) mg/dL Glucose (74-99) mg/dL POC Glucose (mg/dL) 113 H (75-99) mg/dL Calcium (8.4-10.2) mg/dL Microbiology - Last 24 Hours (Table) 05/19/19 12:20 Gram Stain - Preliminary Pleural Fluid Body Fluid Culture - Preliminary 05/19/19 00:25 Gram Stain - Final Sputum Sputum Culture - Final Viridiana albicans 05/16/19 18:43 Blood Culture - Preliminary Blood No Growth after 96 hours Assessment and Plan Assessment: Impression: 1 acute hypoxic respiratory failure requiring intubation and mechanical ve ntilation. This is secondary to multilobar pneumonia and possible complicated right-sided pleural effusion. Status post tube thoracostomy postoperative day #2 2 sepsis secondary to pneumonia, and loculated pleural effusion may eventually require decortication. 3 history of multiple comorbidities including bipolar disorder, schizophrenia, and history of head injury 4 history of compartment syndrome of the left lower extremity 5 underlying COPD severity of which is unclear. 6 chronic and ongoing tobacco dependence syndrome. Recommendation: Continue ventilatory support Continue hemodynamic support Continue nutritional support Cultures from the pleural effusion are nondiagnostic, at least oh far no specific organism could be identified, hence I will proceed to bronchoscopy and lavage of the right lung today. In the meantime, Continue empiric antibiotics presently on vancomycin, Levaquin, and Zosyn Continue GI and DVT prophylaxis. Discussed with thoracic surgery patient may eventually require formal thoracotomy and decortication since his CT of the chest today seems to be quite concerning. Prognosis remains extremely poor and guarded, we'll continue to follow. Gordy l care time is 34 minutes. Time with Patient: Greater than 30
[2019-05-21] MEDS: VANCOMYCIN 1,500 MG in SODIUM CHLORIDE 0.9% 250 ML IVPB SCH ×2 (13:59→21:00)
[2019-05-21] MEDS ORDERED: IV FLUID CONTINUATION 1,000 ML IV ONE (14:30)
[2019-05-21] MEDS ORDERED: HYDROmorphone 1 MG/ML 1 ML SYRINGE ONE (14:42)
[2019-05-21] MEDS ORDERED: HYDROmorphone 1 MG/ML 1 ML SYRINGE IM PRN (14:43)
[2019-05-21] MEDS ORDERED: CISATRACURIUM 2 MG/ML 5 ML VIAL IV ONE (15:03)
--- NOTE | 2019-05-21 15:43 | P.PN ---
Subjective Progress Note Date: 05/21/19 Principal diagnosis: Community-acquired bacterial pneumonia, acute respiratory failure with hypoxia and hypercapnia, leukocytosis. Past medical history significant for chronic obstructive pulmonary disease, chronic and ongoing tobacco dependence, history of closed head injury, bipolar disorder, paranoid schizophrenia, narcotic and illicit drug use. Status post day #2 intubation with mechanical ventilator support. Right thoracostomy chest tube placement placed by Dr. Rai. Right subclavian triple-lumen central line placement by Dr. Rai. The patient is resting in bed in the intensive care unit. He is in no acute distress. He remains sedated on propofol drip at 60 mcg/kg/m, remains intubated with mechanical ventilator support. Oxygen saturations are 99% on current mechanical ventilator settings as follows. Assist control 20, TV 500, FiO2 50%, PEEP 8. ABG results this morning show a pH of 7.48, pCO2 44, pO2 99, HCO3 34, O2 saturation 97.9 and a base excess of 8.9. The patient is currently hemodynamically stable and is on no inotropic or pressor support. Labs this morning show a WBC count trending down 13.8, Hgb 9.2, BUN 15 and creatinine 0.39. He remains afebrile the last 24 hours. Right pleural chest tube remains in place to low continuous wall suction -20 cm H2O. No air leak is present. Draining thin serous drainage with 150 mL output in the last 24 hours. OG tube is in place and he has vital high-protein to feeding infusing at goal rate of 47 mL per hour. Remains on Levaquin, Zosyn and vancomycin for antibiotic treatments managed by infectious disease. Despite being on sedation the patient is moving all 4 extremities appropriately with verbal stimuli. Objective - Vital Signs Vital signs: Vital Signs Temp 98.6 F 05/21/19 04:00 Pulse 65 05/21/19 08:38 Resp 20 05/21/19 07:00 BP 100/61 05/21/19 07:00 Pulse Ox 100 05/21/19 07:00 Intake & Output 05/20/19 05/21/19 05/21/19 18:59 06:59 18:59 Intake Total 2500.252 2481.33 247 Output Total 1160 595 180 Balance 9218.101 6256.33 67 Weight 76.5 kg Intake: IV 1587.5 1700 100 Lactated Ringers 1,000 ml 1200 1100 100 @ 100 mls/hr IV .Q10H [facility] Rx#:[id number] Levofloxacin 750Mg-D5w 100 Pmx 750 mg In Dextrose/ Water 1 150ml.bag @ 100 mls/hr IVPB Q24H [facility] Rx#: [id number] Piperacillin-Tazobactam 3 100 100 .375 gm In Sodium Chloride 0.9% 100 ml @ 25 mls/hr IVPB Q8HR [facility] Rx# :[id number] Vancomycin 1,250 mg In 187.5 Sodium Chloride 0.9% 250 ml @ 125 mls/hr IVPB Q12H [facility] Rx#:[id number] Vancomycin 1,250 mg In 250 Sodium Chloride 0.9% 250 ml @ 125 mls/hr IVPB Q12HR [facility] Rx#:[id number] Vancomycin 1,250 mg In 250 Sodium Chloride 0.9% 250 ml @ 125 mls/hr IVPB Q8H [facility] Rx#:[id number] Intake, IV Titration 278.752 157.33 100 Amount Norepinephrine 32 mg In 2.585 Sodium Chloride 0.9% 218 ml @ 0.07 MCG/KG/MIN 2. 136 mls/hr IV .Q24H [facility] Rx#:[id number] Propofol 1,000 mg In 276.167 157.33 100 Empty Bag 1 bag @ Titrate IV .Q0M [facility] Rx#: [id number] Tube Feeding 544 564 47 Other 90 60 Output: Chest Tube Drainage 80 60 Chest Tube Right Lateral 80 60 Chest Urine 1080 535 180 Other: Voiding Method Indwelling Catheter Indwelling Catheter ABP, PAP, CO, CI - Last Documented Arterial Blood Pressure 93/61 - Constitutional Constitutional Comment(s): Sedated on propofol drip at 60 mcg/kg/m. Moving all 4 extremities appropriately with simple verbal commands. General appearance: Present: cooperative, no acute distress, thin - Neck Details: JVD present bilaterally. - Respiratory Details: Lungs sounds essentially clear to his bilateral upper lobes, diminished to his bilateral bases right greater than left. Respirations are symmetrical and nonlabored with mechanical ventilator support. Current mechanical ventilator se ttings are as follows: Assist control 20, TV 500, FiO2 50% and PEEP of 5. Oxygen saturations are 99% on current mechanical ventilator settings. Right pleural chest tube remains in place to low continuous wall suction -20 cm H2O. No air leak is present. Draining thin serosanguineous drainage. - Cardiovascular Details: Regular rhythm and rate. S1 and S2 present, negative for S3, gallop or murmur. Bedside telemetry showing normal sinus rhythm heart rate 64. No edema present. Knee-high sequential compression devices in place to his bilateral lower e xtremities. - Gastrointestinal Gastrointestinal Comment(s): Abdomen is soft, nontender and nondistended. Active bowel sounds present all 4 abdominal quadrants. No guarding or rigidity. OG tube in place with tube feedings infusing at goal rate of 47 mL per hour. - Genitourinary Genitourinary Comment(s): Cespedes catheter for accurate I&O. Draining clear yellow urine. - Integumentary Integumentary Comment(s): Skin is warm and dry. No clubbing or cyanosis is present. No rash or abnormal pigmentation is present. Right subclavian triple-lumen is intact, dressing clean and dry. Right pleural chest tube insertion site dressing clean, dry and intact. - Neurologic Neurologic Comment(s): Remains sedated on propofol drip. Neurologic: Present: CNII-XII intact - Musculoskeletal Musculoskeletal Comment(s): Remains sedated on propofol drip Musculoskeletal: Present: generalized weakness, strength equal bilaterally - Psychiatric Psychiatric Comment(s): Remains sedated on propofol drip - Allied health notes Allied health notes reviewed: nursing - Labs CBC & Chem 7: 05/21/19 04:04 05/21/19 04:04 Labs: Abnormal Lab Results - Last 24 Hours (Table) 05/20/19 05/20/19 05/20/19 Range/Units 11:55 18:30 23:21 WBC (3.8-10.6) k/uL RBC (4.30-5.90) m/uL Hgb (13.0-17.5) gm/dL Hct (39.0-53.0) % MCHC (31.0-37.0) g/dL ABG pH (7.35-7.45) ABG HCO3 (21-25) mmol/L ABG Total CO2 (19-24) mmol/L ABG O2 Saturation (94-97) % Carbon Dioxide (22-30) mmol/L Creatinine (0.66-1.25) mg/dL Glucose (74-99) mg/dL POC Glucose (mg/dL) 121 H 152 H 151 H (75-99) mg/dL Calcium (8.4-10.2) mg/dL 05/21/19 05/21/19 05/21/19 Range/Units 04:04 04:04 06:03 WBC 13.8 H (3.8-10.6) k/uL RBC 3.07 L (4.30-5.90) m/uL Hgb 9.2 L (13.0-17.5) gm/dL Hct 30.2 L (39.0-53.0) % MCHC 30.5 L (31.0-37.0) g/dL ABG pH (7.35-7.45) ABG HCO3 (21-25) mmol/L ABG Total CO2 (19-24) mmol/L ABG O2 Saturation (94-97) % Carbon Dioxide 32 H (22-30) mmol/L Creatinine 0.39 L (0.66-1.25) mg/dL Glucose 153 H (74-99) mg/dL POC Glucose (mg/dL) 143 H (75-99) mg/dL Calcium 8.2 L (8.4-10.2) mg/dL 05/21/19 Range/Units 07:07 WBC (3.8-10.6) k/uL RBC (4.30-5.90) m/uL Hgb (13.0-17.5) gm/dL Hct (39.0-53.0) % MCHC (31.0-37.0) g/dL ABG pH 7.48 H (7.35-7.45) ABG HCO3 32 H (21-25) mmol/L ABG Total CO2 34 H (19-24) mmol/L ABG O2 Saturation 97.9 H (94-97) % Carbon Dioxide (22-30) mmol/L Creatinine (0.66-1.25) mg/dL Glucose (74-99) mg/dL POC Glucose (mg/dL) (75-99) mg/dL Calcium (8.4-10.2) mg/dL Microbiology - Last 24 Hours (Table) 05/16/19 18:43 Blood Culture - Preliminary Blood No Growth after 96 hours 05/19/19 12:20 Gram Stain - Preliminary Pleural Fluid Body Fluid Culture - Preliminary - Imaging and Cardiology Chest x-ray: report reviewed, image reviewed Assessment and Plan Assessment: 1. Hypoxic respiratory failure, post intubation mechanical ventilation 2. Right loculated pleural effusion, status post right-sided chest tube placement 3. Sepsis secondary to multilobar community-acquired pneumonia 4. Leukocytosis, secondary to above 5. Hypotension requiring norepinephrine support 6. Chronic and ongoing tobacco dependence 7. Chronic obstructive pulmonary disease 8. Paranoid schizophrenia 9. Bipolar disorder 10. History of closed head injury 11. History of compartment syndrome of the left lower extremity Plan: 1. Keep right-sided pleural chest tube to low continuous wall suction -20 cm H2O. Accurate I&O. 2. Mechanical ventilator, bronchodilators and corticosteroids management per pulmonary and critical care management. 3. Antibiotic management per infectious disease recommendations. 4. Continue to monitor daily labs and chest x-rays. 5. DVT and GI prophylaxis. 6. Other comorbidities management per primary care service. 7. Nutrition management per dietitian's recommendations. 8. We will instill alteplase 10 mg/100 mL of normal saline through his right pleural chest tube today, keep his right pleural chest tube clamped for 1 hour post alteplase instillation. 9. Dr. Harris from pulmonary medicine is planning on doing a bronchoscopy on the patient this afternoon. 10. More recommendations to follow based on patient's clinical course. Time with Patient: Greater than 30
[2019-05-21] MEDS: busPIRone HCl 10 MG TAB PO SCH ×2 (17:05→20:53)
[2019-05-21] MEDS: ARIPiprazole 10 MG TAB PO SCH (17:05)
[2019-05-21 18:43] LABS: Glucose,Whole Blood 99 mg/dL (75-99)
[2019-05-21] MEDS: LEVOFLOXACIN 750MG-D5W PMX 750 MG in DEXTROSE/WATER 1 150ML.BAG IVPB SCH (20:52)
[2019-05-21] MEDS: BACLOFEN 10 MG TAB PO PRN (20:54)
[2019-05-21] MEDS: DOXEPIN 25 MG CAP PO SCH (21:01)
--- NOTE | 2019-05-21 21:14 | P.PN ---
Progress Note - Text Progress Note Date: 05/21/19 Interval history: This is a 54-year-old patient of Dr. andino from [place]. Unable to get much of history from the patient as he mumbles then he remains quite. I gather from the ER notes that he apparently is homeless 2. Patient's history include closed head injury bipolar neuropathy COPD. Patient is an active smoker at least 2 packs a day. He did present to the ER stating that he is withdrawing from benzodiazepines and he is out of the same. He does follow with Dr. Rivero from out of the [facility]. Patient is very congested chronic cough so tired and is not able to expectorate. Having fever and tachycardia when initially presented. Was started on IV antibiotics. Pulmonary was consulted. Patient just about wakes up to speak that goes back to sleep. Patient was diagnosed to have severe pneumonia, parapneumonic effusion, sepsis, suspected empyema delirium, COPD exacerbation. Cardiothoracic surgery was consulted with a view to chest tube/thoracotomy On May 19, Dr. Rai put in a chest tube. About 1100 mL of serosanguineous fluid was obtained. Patient intubated. Today-ICU. On the ventilator. FiO2 50. PEEP of 8. On propofol drip. 2 feeding running at 47 mL an hour. Eyes do open. Attempted to follow some commands.. Review of systems: cannot be obtained as patient does. intubated Active Medications Acetaminophen (Tylenol Tab) 650 mg PO Q6HR PRN PRN Reason: Fever and/ or Pain Last Admin: 05/18/19 17:12 Dose: 650 mg Documented by: Albuterol/Ipratropium (Duoneb 0.5 Mg-3 Mg/3 Ml Soln) 3 ml INHALATION RT-QID [facility] Last Admin: 05/21/19 20:42 Dose: 3 ml Documented by: Aripiprazole (Abilify) 10 mg PO DAILY [facility] Last Admin: 05/21/19 17:05 Dose: Not Given Documented by: Baclofen (Lioresal) 5 mg PO QID PRN PRN Reason: Muscle Spasm Last Admin: 05/21/19 20:54 Dose: 5 mg Documented by: Buspirone HCl (Buspar) 10 mg PO BID [facility] Last Admin: 05/21/19 20:53 Dose: 10 mg Documented by: Chlorhexidine Gluconate (Peridex) 15 ml MUCOUS MEM BID [facility] Last Admin: 05/21/19 20:57 Dose: 15 ml Documented by: Diazepam (Valium) 5 mg IVP Q4H PRN PRN Reason: Seizures Doxepin HCl (Sinequan) 150 mg PO HS [facility] Last Admin: 05/21/19 21:01 Dose: 150 mg Documented by: Enoxaparin Sodium (Lovenox) 40 mg SQ DAILY [facility] Last Admin: 05/21/19 09:20 Dose: 40 mg Documented by: Gabapentin (Neurontin) 600 mg PO TID [facility] Last Admin: 05/21/19 21:00 Dose: 600 mg Documented by: Hydromorphone HCl (Dilaudid) 1 mg IM ONCE PRN PRN Reason: Pain Levofloxacin 750 mg/ IV (Solution) 150 mls @ 100 mls/hr IVPB Q24H [facility] Stop: 05/29/19 19:31 Last Admin: 05/21/19 20:52 Dose: 100 mls/hr Documented by: Piperacillin Sod/Tazobactam (Sod 3.375 gm/ Sodium Chloride) 100 mls @ 25 mls/hr IVPB Q8HR [facility] Stop: 05/27/19 08:01 Last Admin: 05/21/19 16:54 Dose: 25 mls/hr Documented by: Lactated Ringer's (Lactated Ringers) 1,000 mls @ 100 mls/hr IV .Q10H [facility] Last Admin: 05/21/19 17:33 Dose: 100 mls/hr Documented by: Propofol 1,000 mg/ IV Solution 100 mls @ 0 mls/hr IV .Q0M [facility]; Protocol Last Admin: 05/21/19 17:32 Dose: 60 mcg/kg/min, 26.46 mls/hr Documented by: Norepinephrine Bitartrate 32 (mg/ Sodium Chloride) 250 mls @ 2.136 mls/hr IV .Q24H [facility]; Protocol Last Admin: 05/21/19 11:00 Dose: Not Given Documented by: Vancomycin HCl 1,500 mg/ (Sodium Chloride) 250 mls @ 125 mls/hr IVPB Q8H [facility] Last Admin: 05/21/19 21:00 Dose: 125 mls/hr Documented by: Alteplase, Recombinant 10 mg/ (Sodium Chloride) 100 mls @ 999 mls/hr IRRIGATION ONCE ONE Stop: 05/22/19 08:05 Insulin Aspart (Novolog) 0 unit SQ Q6HR [facility]; Protocol Last Admin: 05/21/19 20:18 Dose: Not Given Documented by: Ketorolac Tromethamine (Toradol) 15 mg IVP Q6HR PRN PRN Reason: Pain Stop: 05/23/19 13:31 Last Admin: 05/18/19 13:45 Dose: 15 mg Documented by: Lorazepam (Ativan) 1 mg IV Q6HR PRN PRN Reason: Anxiety Last Admin: 05/18/19 18:23 Dose: 1 mg Documented by: Lurasidone HCl (Latuda) 20 mg PO BID-W/MEALS [facility] Last Admin: 05/21/19 17:44 Dose: 20 mg Documented by: Methylprednisolone Sodium Succinate (Solu-Medrol) 40 mg IV Q8HR [facility] Last Admin: 05/21/19 16:36 Dose: 40 mg Documented by: Miscellaneous Information (Pneumonia Protocol Utilized) 1 each PO ONCE PRN PRN Reason: Per Protocol Miscellaneous Information (Rx Info: Iv Contrast Was Given) 1 each MISCELLANE DAILY PRN PRN Reason: Per Protocol Stop: 05/22/19 11:07 Naloxone HCl (Narcan) 0.2 mg IV Q2M PRN PRN Reason: Opioid Reversal Nicotine (Habitrol 21mg/24hr Patch) 1 patch TRANSDERM DAILY [facility] Last Admin: 05/21/19 09:18 Dose: 1 patch Documented by: Buprenorphine Hcl [ (Subutex] 8 Mg) 8 mg SUBLINGUAL AC-TID [facility] Last Admin: 05/21/19 20:18 Dose: Not Given Documented by: Pantoprazole Sodium (Protonix) 40 mg IV DAILY [facility] Last Admin: 05/21/19 09:20 Dose: 40 mg Documented by: Physical examination: VITAL SIGNS: 99, 77, 20, 109/60, 91% on the ventilator GENERAL: Laying in bed, intubated. EYES: Pupils equal. Conjunctiva pale HEENT: External appearance of nose and ears normal, oral cavity dry.endotracheal tube in place NECK: JVD unable to assess; masses not palpable. HEART: First and second heart sounds are normal; no edema. LUNGS: Respiratory rate increased, diminished breath sounds. right-sided chest tube in place ABDOMEN: Soft, nontender, liver spleen not palpable, no masses palpable. PSYCH: unable to assess as patient is intubated INVESTIGATIONS, reviewed in the clinical context: White count 13.8 hemoglobin 9.2 potassium 4.1 creatinine 0.39 Sputum growing Viridiana albicans other cultures pending Previous investigations White count 28.5 hemoglobin 12.1 sodium 127 potassium 4.1. Creatinine 0.81 a lbumin 3.0 UA negative for leukoesterase and nitrites Chest x-ray film personally reviewed by me-shows dense consolidation of the right side with questionable fluid Computed tomography scan of the chest shows complex lobular take fluid collection in the right extending across the midline diffuse airspace disease in the right with bullous changes in the apex lobes no solid mass reported CT chest-multiple loculated right-sided pleural effusion are again noted. On the sliding interval improvement.. Interval development of coarse infiltrate for the left lung. Assessment: -Bilateral multilobar pneumonia with right parapneumonic effusion with loculated fluid, with sepsis, slow to respond -Right-sided chest tube placed, initially about 1100 mL of fluid obtained -Acute hypoxic respiratory failure from above, now on ventilator support -Acute delirium with encephalopathy secondary to underlying sepsis, -Acute COPD exacerbation in a current smoker, slow to respond -nicotine dependence patient's cigarette smoker -Idiopathic peripheral neuropathy -Bipolar disorder -Hyponatremia -Hypoalbuminemia could be an acute phase reactant Plan: Patient remains rather ill. Dr. Lau is considering a bronchoscopy. For possible lavage. Cardiothoracic surgery still considering a decortication. They're also planning to put alteplase through the chest tube.
[2019-05-21 22:36] LABS: Appearance,BF Hazy; Color,BF Colorless; Nucleated Cells, Body Fluid 330 /uL; RBC, Body Fluid 20 /uL
[2019-05-21 22:40] LABS: Mononuclear WBC,Body Fluid 9 %; Polynuclear WBC,Body Fluid 91 %
[2019-05-21 23:35] LABS: Glucose,Whole Blood 109 mg/dL (75-99)
[2019-05-22] MEDS: methylPREDNISolone SOD SUCCI 40 MG/ML 1 ML VIAL IV SCH ×4 (00:25→23:58)
[2019-05-22] MEDS: INSULIN ASPART (NovoLOG) 100 UNIT/ML VIAL SQ SCH ×5 (00:25→21:25)
[2019-05-22] MEDS: PROPOFOL 1,000 MG in EMPTY BAG 1 BAG IV SCH ×3 (02:24→10:40)
[2019-05-22] MEDS: LACTATED RINGERS 1,000 ML IV SCH ×3 (02:24→23:08)
--- NOTE | 2019-05-22 05:43 | PCN ---
PROCEDURE NOTE OPERATIVE PROCEDURE: Bronchoscopy and bronchoalveolar lavage of the right lower lobe, bronchoalveolar lavage of the left lower lobe and lingula, and suctioning of the mucus plugs in both lower lobes. PREOPERATIVE DIAGNOSIS: Respiratory failure, bilateral pneumonia, loculated right-sided pleural effusion. POSTOPERATIVE DIAGNOSIS: Respiratory failure, bilateral pneumonia, loculated right-sided pleural effusion. ANESTHESIA USED: The patient was given Nimbex 10 mg IV push x1, Dilaudid 1 mg IV push x1, and he was already on propofol at 60 mcg/kg per minute. PROCEDURE: Patient was placed in a supine position. He was already on mechanical ventilation, and endotracheal tube was connected to an adapter and connected to mechanical ventilation. After adequate sedation and after Nimbex was given with Dilaudid, the patient had endotracheal tube connected to mechanical ventilation, and the bronchoscope was inserted through the adapter down to the endotracheal tube distal end. Area of secretions were noted bilaterally mostly in the right lower lobe, right middle lobe, left upper lobe, and lingula and left lower lobe. Most of the purulent secretions were noted more so in the right lower lobe and in the left lower lobe. Bronchoalveolar lavage of the right lower lobe was done, and the fluid was sent for different diagnostic studies. Then, bronchoalveolar lavage and suctioning of the mucus plug was done from the left lower lobe and the lingula. Procedure was well tolerated, no evidence of any immediate complication. The fluid was sent for different diagnostic studies. MMODL / IJN: [id number] /
[2019-05-22] MEDS: VANCOMYCIN 1,500 MG in SODIUM CHLORIDE 0.9% 250 ML IVPB SCH ×3 (06:03→21:23)
[2019-05-22 06:13] LABS: Glucose,Whole Blood 145 mg/dL (75-99)
[2019-05-22] MEDS: Buprenorphine Hcl [Subutex] 8 MG SUBLINGUAL SCH ×3 (06:18→18:11)
[2019-05-22 06:37] LABS: African American GFR (CKD) >90 (>60 ml/min/1.73 sqM)
[2019-05-22] MEDS: LURASIDONE 20 MG TAB PO SCH ×2 (06:47→18:16)
[2019-05-22] MEDS: IPRATROPIUM-ALBUTEROL 3 ML NEB INHALATION SCH ×4 (07:14→19:36)
[2019-05-22 07:22] LABS: ABG Base Excess 10.5 mmol/L; ABG HCO3 34 mmol/L (21-25); ABG Oxygen Saturation 98.1 % (94-97); ABG PCO2 44 mmHg (35-45); ABG PH 7.49 (7.35-7.45); ABG PO2 112 mmHg (83-108); ABG TCO2 35 mmol/L (19-24)
--- NOTE | 2019-05-22 07:34 | XR ---
EXAMINATION TYPE: XR chest 1V portable DATE OF EXAM: 05/22/2019 COMPARISON: 05/21/2019 HISTORY: Shortness of breath. Ventilatory dependent respiratory failure. TECHNIQUE: Single frontal view of the chest is obtained. FINDINGS: Endotracheal tube and enteric tube are again present. Enteric tube should be advanced at l east 6 cm as the fenestrated portion is above the gastroesophageal junction. Endotracheal tube should also be advanced approximately 3 cm. Right thoracostomy tube is unchanged. Small bilateral pleural effusions are present. Improved pulmona ry edema, now mild. Improvement in right infrahilar opacity. Cardiomediastinal silhouette is again mi ldly enlarged. No acute osseous pathology. IMPRESSION: 1. Cephalad placement of both the enteric and endotracheal tubes. Recommendation is for advancement a t least 6 cm of the enteric tube and 3 cm of the endotracheal tube. 2. Improved pulmonary edema right infrahilar airspace disease. Edema is now mild. Stable bilateral pl eural effusions.
[2019-05-22 07:42] LABS: HCT 30.3 % (39.0-53.0); HGB 9.5 gm/dL (13.0-17.5); MCH 30.7 pg (25.0-35.0); MCHC 31.2 g/dL (31.0-37.0); MCV 98.6 fL (80.0-100.0); Macrocytosis Slight; Mean Platelet Volume 7.2; Platelet Count 525 k/uL (150-450); RBC 3.08 m/uL (4.30-5.90); WBC 16.3 k/uL (3.8-10.6)
[2019-05-22 07:44] LABS: African American GFR (CKD) >90 (>60 ml/min/1.73 sqM); Anion Gap 2 mmol/L; Blood Urea Nitrogen 19 mg/dL (9-20); Calcium 7.9 mg/dL (8.4-10.2); Carbon Dioxide 34 mmol/L (22-30); Chloride 103 mmol/L (98-107); Glucose 140 mg/dL (74-99); Potassium 4.5 mmol/L (3.5-5.1); Sodium 139 mmol/L (137-145)
[2019-05-22] MEDS ORDERED: ALTEPLASE 10 MG in SODIUM CHLORIDE 0.9% 100 ML IRRIGATION ONE (08:00)
[2019-05-22] MEDS: CHLORHEXIDINE GLUCONATE 15 ML CUP MUCOUS MEM SCH (09:00)
[2019-05-22] MEDS: ENOXAPARIN 40 MG/0.4 ML SYRINGE SQ SCH (09:00)
[2019-05-22] MEDS: NICOTINE 21MG/24HR PATCH TRANSDERM SCH (09:00)
[2019-05-22] MEDS: PIPERACILLIN-TAZOBACTAM 3.375 GM in SODIUM CHLORIDE 0.9% 100 ML IVPB SCH ×3 (09:00→23:58)
[2019-05-22] MEDS: GABAPENTIN 300 MG CAP PO SCH ×3 (09:01→21:10)
[2019-05-22] MEDS: ARIPiprazole 10 MG TAB PO SCH (09:01)
[2019-05-22] MEDS: busPIRone HCl 10 MG TAB PO SCH ×2 (09:01→21:09)
[2019-05-22] MEDS: PANTOPRAZOLE 40 MG/10 ML VIAL IV SCH (09:01)
--- NOTE | 2019-05-22 09:05 | P.PN ---
Subjective Progress Note Date: 05/22/19 Principal diagnosis: Community-acquired bacterial pneumonia, acute respiratory failure with hypoxia and hypercapnia, leukocytosis. Past medical history significant for chronic obstructive pulmonary disease, chronic and ongoing tobacco dependence, history of closed head injury, bipolar disorder, paranoid schizophrenia, narcotic and illicit drug use. Status post day #1 bronchoscopy and bronchoalveolar lavage of the right lower lobe, bronchial alveolar lavage of the left lower lobe and lingula and suctioning of mucous plugging in both lower lobes performed by Dr. Harris. Status post day #3 intubation with mechanical ventilator support. Right thoracostomy chest tube placement placed by Dr. Rai. Right subclavian triple-lumen central line placement by Dr. Rai. The patient is resting in bed in the intensive care unit. He is in no acute distress. He remains sedated on propofol drip at 50 mcg/kg/m, remains intubated with mechanical ventilator support. Oxygen saturations are 100% on current mechanical ventilator settings as follows. Assist control 20, TV 500, FiO2 50%, PEEP 8. ABG results this morning show a pH of 7.49, pCO2 44, pO2 112, HCO3 34, O2 saturation 98.1 and a base excess of 10.5. The patient was restarted on norepinephrine drip at 3 mcg/m last evening for some episodes of hypotension. Currently his blood pressure is 109/66 mmHg on the norepinephrine drip. Lab results are pending this morning. Sputum culture is showing no organisms seen, although shows rare Viridiana albicans. Right pleural chest tube remains in place to low continuous wall suction -20 cm H2O. No air leak is present. Draining thin serous drainage with some white thick sediment present and 700 mL output in the last 24 hours. He received multiple place 10 mg/100 mL of normal saline pleural instillation yesterday. Dr. Harris from pulmonary critical care [facility] did complete a bronchoscopy with bronchial alveolar lavage yesterday. The bronchial washings results are pending. OG tube is in place and he has vital high-protein to feeding infusing at goal rate of 47 mL per hour. Remains on Levaquin, Zosyn and vancomycin for antibiotic treatments managed by infectious disease. Despite being on sedation the patient is moving all 4 extremities appropriately with verbal stimuli. Objective - Vital Signs Vital signs: Vital Signs Temp 99.3 F 05/22/19 04:00 Pulse 72 05/22/19 07:25 Resp 42 H 05/22/19 06:00 BP 109/64 05/22/19 06:00 Pulse Ox 98 05/22/19 06:00 Intake & Output 05/21/19 05/22/19 05/22/19 18:59 06:59 18:59 Intake Total 2358 2762.575 Output Total 1275 1750 Balance 1083 1012.575 Weight 76.5 kg 75.3 kg Intake: IV 1575 1900 Lactated Ringers 1,000 ml 1100 1200 @ 100 mls/hr IV .Q10H [facility] Rx#:[id number] Levofloxacin 750Mg-D5w 100 Pmx 750 mg In Dextrose/ Water 1 150ml.bag @ 100 mls/hr IVPB Q24H [facility] Rx#: [id number] Piperacillin-Tazobactam 3 200 100 .375 gm In Sodium Chloride 0.9% 100 ml @ 25 mls/hr IVPB Q8HR [facility] Rx# :[id number] Vancomycin 1,250 mg In 250 500 Sodium Chloride 0.9% 250 ml @ 125 mls/hr IVPB Q8H [facility] Rx#:[id number] Intake, IV Titration 300 208.575 Amount Norepinephrine 32 mg In 8.575 Sodium Chloride 0.9% 218 ml @ 0.07 MCG/KG/MIN 2. 136 mls/hr IV .Q24H [facility] Rx#:[id number] Propofol 1,000 mg In 300 200 Empty Bag 1 bag @ Titrate IV .Q0M [facility] Rx#: [id number] Tube Feeding 423 564 Other 60 90 Output: Chest Tube Drainage 470 390 Chest Tube Right Lateral 470 390 Chest Urine 805 1360 Other: Voiding Method Indwelling Catheter Indwelling Catheter ABP, PAP, CO, CI - Last Documented Arterial Blood Pressure 118/50 - Constitutional Constitutional Comment(s): The patient is sedated on propofol drip at 50 mcg/kg/m. Following some verbal commands appropriately and moving all 4 extremities with verbal stimuli appropriately. General appearance: Present: no acute distress, thin - Neck Details: Bilateral JVD present. - Respiratory Details: Lung sounds are essentially clear to his bilateral upper lobes, diminished thro ughout his right lobes. No wheezing, crackles or rhonchi. Respirations are symmetrical and nonlabored with mechanical ventilator support. Current ventilator settings are as follows, assist-control 20, TV 500, FiO2 50%, PEEP 8. Oxygen saturations 100% on current mechanical ventilator settings. Right pleural chest tube remains in place to low continuous wall suction -20 cm H2O. No air leak is present. Draining thin serosanguineous drainage with some thick white sediment, 700 mL output in the last 24 hours. - Cardiovascular Details: Regular rhythm and rate. S1 and S2 present, negative for S3, gallop or murmur. Bedside telemetry showing normal sinus rhythm heart rate 73. No edema present. Knee-high sequential compression devices in place to his bilateral lower extremities. - Gastrointestinal Gastrointestinal Comment(s): Abdomen is soft, nontender and nondistended. Active bowel sounds present all 4 abdominal quadrants. No guarding or rigidity. OG tube in place with vital high-protein to feeding infusing at goal rate of 47 mL per hour with automatic water flushes. - Genitourinary Genitourinary Comment(s): Cespedes catheter for accurate I&O. Draining clear yellow urine. - Integumentary Integumentary Comment(s): Skin is warm and dry. No clubbing or cyanosis present. No rash or abnormal pigmentation is present. Right subclavian triple-lumen catheter site clean dry and intact. Right pleural chest tube site dressing is clean, dry and intact. - Neurologic Neurologic Comment(s): The patient is sedated on propofol drip at 50 mcg/kg/m. Following some verbal commands appropriately and moving all 4 extremities with verbal stimuli appropriately. Neurologic: Present: CNII-XII intact - Musculoskeletal Musculoskeletal Comment(s): The patient is sedated on propofol drip at 50 mcg/kg/m. Following some verbal commands appropriately and moving all 4 extremities with verbal stimuli appropriately. Musculoskeletal: Present: generalized weakness, strength equal bilaterally - Psychiatric Psychiatric Comment(s): The patient is sedated on propofol drip at 50 mcg/kg/m. Following some verbal commands appropriately and moving all 4 extremities with verbal stimuli appropriately. - Allied health notes Allied health notes reviewed: nursing - Labs CBC & Chem 7: 05/21/19 04:04 05/22/19 06:10 Labs: Abnormal Lab Results - Last 24 Hours (Table) 05/21/19 05/21/19 05/22/19 Range/Units 12:12 23:32 06:10 ABG pH (7.35-7.45) ABG pO2 (83-108) mmHg ABG HCO3 (21-25) mmol/L ABG Total CO2 (19-24) mmol/L ABG O2 Saturation (94-97) % Creatinine 0.38 L (0.66-1.25) mg/dL POC Glucose (mg/dL) 113 H 109 H (75-99) mg/dL 05/22/19 05/22/19 Range/Units 06:11 07:15 ABG pH 7.49 H (7.35-7.45) ABG pO2 112 H (83-108) mmHg ABG HCO3 34 H (21-25) mmol/L ABG Total CO2 35 H (19-24) mmol/L ABG O2 Saturation 98.1 H (94-97) % Creatinine (0.66-1.25) mg/dL POC Glucose (mg/dL) 145 H (75-99) mg/dL Microbiology - Last 24 Hours (Table) 05/21/19 14:32 Gram Stain - Preliminary Bronchial Washings - Right Bronchial Washings Culture - Preliminary 05/21/19 14:32 Fungal Culture - Preliminary Bronchoalviolar Lavage - Right 05/21/19 14:32 Acid Fast Bacilli Culture - Preliminary Bronchoalviolar Lavage - Right 05/16/19 18:43 Blood Culture - Preliminary Blood No Growth after 120 hours 05/19/19 12:20 Gram Stain - Preliminary Pleural Fluid Body Fluid Culture - Preliminary 05/19/19 00:25 Gram Stain - Final Sputum Sputum Culture - Final Viridiana albicans - Imaging and Cardiology Chest x-ray: report reviewed, image reviewed Assessment and Plan Assessment: 1. Hypoxic respiratory failure, post intubation mechanical ventilation 2. Right loculated pleural effusion, status post right-sided chest tube placem ent 3. Sepsis secondary to multilobar community-acquired pneumonia 4. Leukocytosis, secondary to above 5. Hypotension requiring norepinephrine support 6. Chronic and ongoing tobacco dependence 7. Chronic obstructive pulmonary disease 8. Paranoid schizophrenia 9. Bipolar disorder 10. History of closed head injury 11. History of compartment syndrome of the left lower extremity Plan: 1. Keep right-sided pleural chest tube to low continuous wall suction -20 cm H 2O. continue to record accurate I&O. 2. Mechanical ventilator, bronchodilators and corticosteroids management per pulmonary and critical care management. 3. Antibiotic management per infectious disease recommendations. 4. Continue to monitor daily labs and chest x-rays. 5. DVT and GI prophylaxis. 6. Medical management and other comorbidities management per primary care service. 7. Nutrition management per dietitian's recommendations. 8. Alteplase 10 mg/100 mL of normal saline instilled through his right pleural chest tube today, we will keep his right pleural chest tube clamped for 1 hour post alteplase instillation. 9. Pleural fluid cytology shows mixed inflammatory cells, mostly granulocytes and reactive mesothelial cells. Cells cytologically diagnostic of malignancy were not seen. 10. More recommendations to follow based on patient's clinical course. Time with Patient: Greater than 30
[2019-05-22 11:25] LABS: ABG Base Excess 11.4 mmol/L; ABG HCO3 34 mmol/L (21-25); ABG Oxygen Saturation 97.2 % (94-97); ABG PCO2 43 mmHg (35-45); ABG PH 7.51 (7.35-7.45); ABG PO2 90 mmHg (83-108); ABG TCO2 36 mmol/L (19-24)
--- NOTE | 2019-05-22 12:26 | P.PN ---
Subjective Progress Note Date: 05/22/19 Principal diagnosis: Acute hypoxic respiratory failure secondary to multilobar pneumonia and right- sided loculated pleural effusion. This is a 54-year-old gentleman who follows with Dr. Srinivasan as his primary care physician. He has a history of bipolar disorder, closed head injury, schizophrenia, compartment syndrome of the left lower extremity, COPD, chronic and ongoing tobacco dependence. He presented to the emergency room yesterday with altered mental status and fever. The patient himself is a poor historian. He was refusing to give much information. He did feel as though he was withdrawing from benzodiazepines. Urine drug screen was positive for tricyclic antidepressants and benzodiazepines. Chest x-ray showed a new right pleural effusion and right lower lobe consolidation. White count 28.5. Hemoglobin 12.1. Creatinine 0.81. Influenza screen negative. Initial temp 101.1. He is admitted for suspected pneumonia. He is seen today in consultation on the regular medical floor. He is currently awake. He is a poor historian. Unable to give much information. Does complain of right sided chest p ain and pain with inhalation and coughing. He's maintaining O2 saturation in the low 90s on 2 L/m per nasal cannula. He's been afebrile. Somewhat tac hycardic. His been initiated on Zosyn and Levaquin. Lactated Ringer's at 125 ML's per hour. On 05/18/2019 the patient is doing well stable and is hemodynamic stable and afebrile. Still on today's of oxygen by nasal cannula pulse ox is 93%. CAT scan results were noted. Consult was placed for interventional radiology regarding a percutaneous predicted catheter insertion. The patient remains on a combination of antibiotics including Zosyn and Levaquin and vancomycin. The blood cultures negative. Reevaluated today on 05/19/2019, patient was already seen earlier by Dr. Rai, and he placed a right sided chest tube for his worsening right-sided pleural effusion. Patient is now on mechanical ventilation with assist control rate of 20 FiO2 of 50% PEEP of 12 tidal volume of 500. ABG this morning showed a pO2 of 83 pCO2 of 51 pH of 7.38 patient was earlier on 100% FiO2 and high PEEP prior to placement of the chest tube. Over 1500 mL of serosanguineous fluid removed from the right pleural space, results on the fluid are pending. Patient's brother is at bedside, and I updated the brother on his condition. Patient is hemodynamically stable, he is also on propofol, not requiring any pressors at this point. I was able to cut down the FiO2 to 50%, and kept him on a PEEP of 12. His peak airway pressure is in the high 20s, plateau pressure is 23 Patient was reevaluated today on 05/20/2019, remains in the ICU on mechanical ventilation. His ventilator settings are assist control rate of 20 FiO2 is 50% tidal volume is 500 PEEP is down to 8 and set of 12. Patient is off norep inephrine, remains on propofol at 60 mcg/kg/m. His peak airway pressure is in the high 20s plateau pressure is 18. His chest x-ray continues to show areas of loculated effusion, and this was confirmed further by doing a CT of the chest today clearly showed multiple areas of loculation and bilateral pneumonia. The fluid from the chest tube is clearly exudative in nature, with relatively low glucose, it could be malignant or could be infectious, I believe it is mostly infectious rather than malignant. Considering the abnormal CT of the chest, the patient may require thoracotomy and decortication otherwise I doubt that the patient will make dramatic improvement as long as we have ongoing loculated effusion. Thoracic surgery is aware of the condition, may have to approach his brother regarding surgical intervention since the patient refused surgery when he presented initially to the hospital. ABG this morning showed a pO2 of 120 pCO2 of 46 pH of 7.45. Electrodes are normal renal profile is normal WBC count is 23.2 hemoglobin is 10. Microbiology remains negative, blood cultures are negative, Gram stain on the pleural effusion showed no organisms. Patient remains sedated, hemodynamically stable, urine output is decent and acceptable. Reevaluated today on 05/21/2019, remains on mechanical ventilation, in the intensive care unit. Patient is sedated, on fall mostly. His ventilator settings are unchanged, tidal volume of 500 assist control rate of 20 FiO2 is 50% PEEP is 8. ABG today showed a pO2 of 99 pCO2 of 44 pH of 7.48. Cultures from the pleural effusion remain negative. WBC count 13.8 hemoglobin is 9.2 lites are normal renal profile is normal. Patient is hemodynamically stable, not requiring any pressors at present. He is on propofol at 60 mcg/kg/m. IV fluid is at 100 mL/h. And he remains on antibiotics in the form of Zosyn and vancomycin. These are given empirically. No specific positive culture has been noted, hence I plan to bronchoscope the patient today and lavage his right lung. Patient was seen by thoracic surgery, considering decortication, but in the meantime trying thrombolytic therapy via chest tube. Reevaluated today again on 06/18/2019, patient remains in the ICU, mechanically ventilated. His ventilator settings are assist control rate of 20 tidal volume of 500 FiO2 of 50%, and PEEP was cut down to 5. Patient remains on propofol at 45 mcg/kg/m, he is also on norepinephrine at 2 mcg/m. Patient is sedated, however my plan today is to hold sedation, and address weaning parameters and possibly weaning trials of possible. Patient will likely be switched to a pressure support of 8 and CPAP, and if he does well on this, may consider weaning and extubation. Labs today were reviewed ABG showed a pO2 of 112 pCO2 44 pH of 7.49 electrolytes and renal profile are normal WBC count is 16.3 hemoglobin is 9.5. Chest x-ray is showing significant improvement compared to previous x-rays, infiltrates in both lungs are improving, but he continues to have areas of loculated pleural effusion on the right side. Chest tube remains in place, and purulent material is being drained, cultures remain negative from the pleural effusion and the cultures are still negative from the BAL. Remains on Levaquin and Zosyn and vancomycin Objective - Vital Signs Vital signs: Vital Signs Temp 99.5 F 05/22/19 08:00 Pulse 88 05/22/19 12:17 Resp 14 05/22/19 11:00 BP 109/67 05/22/19 10:00 Pulse Ox 100 05/22/19 11:00 Intake & Output 05/21/19 05/22/19 05/22/19 18:59 06:59 18:59 Intake Total 2358 2762.575 1111.129 Output Total 1275 1750 1515 Balance 1083 1012.575 -403.871 Weight 76.5 kg 75.3 kg Intake: IV 1575 1900 700 Lactated Ringers 1,000 ml 1100 1200 600 @ 100 mls/hr IV .Q10H [facility] Rx#:[id number] Levofloxacin 750Mg-D5w 100 Pmx 750 mg In Dextrose/ Water 1 150ml.bag @ 100 mls/hr IVPB Q24H [facility] Rx#: [id number] Piperacillin-Tazobactam 3 200 100 100 .375 gm In Sodium Chloride 0.9% 100 ml @ 25 mls/hr IVPB Q8HR [facility] Rx# :[id number] Vancomycin 1,250 mg In 250 500 Sodium Chloride 0.9% 250 ml @ 125 mls/hr IVPB Q8H [facility] Rx#:[id number] Intake, IV Titration 300 208.575 101.129 Amount Norepinephrine 32 mg In 8.575 Sodium Chloride 0.9% 218 ml @ 0.07 MCG/KG/MIN 2. 136 mls/hr IV .Q24H [facility] Rx#:[id number] Propofol 1,000 mg In 300 200 101.129 Empty Bag 1 bag @ Titrate IV .Q0M [facility] Rx#: [id number] Tube Feeding 423 564 235 Other 60 90 75 Output: Chest Tube Drainage 470 390 360 Chest Tube Right Lateral 470 390 360 Chest Urine 805 1360 1155 Other: Voiding Method Indwelling Catheter Indwelling Catheter Indwelling Catheter ABP, PAP, CO, CI - Last Documented Arterial Blood Pressure 134/55 - Exam Physical Exam: 54-year-old on mechanical ventilation. Arousable off propofol, followed simple instructions. Head: Atraumatic, normocephalic. HEENT:[Neck is supple.] [No neck masses.] [No thyromegaly.] [No JVD.] Moist mucous membranes, endotracheal tube and orogastric tube are intact. Chest: [Symmetrical chest expansion, right-sided chest tube is noted, crackles at the bases, no rhonchi, no wheezes.] Cardiac Exam: [Normal S1 and S2, no S3 gallop, no murmur.] Abdomen: [Soft, nontender, no megaly, no rebound, no guarding, normal bowel sounds.] Extremities: [No clubbing, no edema, no cyanosis.] Neurological Exam: Off propofol, patient was noted to be arousable, followed simple instructions, no gross focal neurologic deficit was noted. Psychiatric: Depressed mood, blunt affect, difficult to assess mental status except the patient is noted to follow simple instructions on mechanical ventilation off propofol. Skin: No rashes. - Labs CBC & Chem 7: 05/22/19 06:10 05/22/19 06:10 Labs: Abnormal Lab Results - Last 24 Hours (Table) 05/21/19 05/22/19 05/22/19 Range/Units 23:32 06:10 06:10 WBC (3.8-10.6) k/uL RBC (4.30-5.90) m/uL Hgb (13.0-17.5) gm/dL Hct (39.0-53.0) % Plt Count (150-450) k/uL ABG pH (7.35-7.45) ABG pO2 (83-108) mmHg ABG HCO3 (21-25) mmol/L ABG Total CO2 (19-24) mmol/L ABG O2 Saturation (94-97) % Carbon Dioxide 34 H (22-30) mmol/L Creatinine 0.38 L 0.41 L (0.66-1.25) mg/dL Glucose 140 H (74-99) mg/dL POC Glucose (mg/dL) 109 H (75-99) mg/dL Calcium 7.9 L (8.4-10.2) mg/dL 05/22/19 05/22/19 05/22/19 Range/Units 06:10 06:11 07:15 WBC 16.3 H (3.8-10.6) k/uL RBC 3.08 L (4.30-5.90) m/uL Hgb 9.5 L (13.0-17.5) gm/dL Hct 30.3 L (39.0-53.0) % Plt Count 525 H (150-450) k/uL ABG pH 7.49 H (7.35-7.45) ABG pO2 112 H (83-108) mmHg ABG HCO3 34 H (21-25) mmol/L ABG Total CO2 35 H (19-24) mmol/L ABG O2 Saturation 98.1 H (94-97) % Carbon Dioxide (22-30) mmol/L Creatinine (0.66-1.25) mg/dL Glucose (74-99) mg/dL POC Glucose (mg/dL) 145 H (75-99) mg/dL Calcium (8.4-10.2) mg/dL 05/22/19 Range/Units 11:22 WBC (3.8-10.6) k/uL RBC (4.30-5.90) m/uL Hgb (13.0-17.5) gm/dL Hct (39.0-53.0) % Plt Count (150-450) k/uL ABG pH 7.51 H (7.35-7.45) ABG pO2 (83-108) mmHg ABG HCO3 34 H (21-25) mmol/L ABG Total CO2 36 H (19-24) mmol/L ABG O2 Saturation 97.2 H (94-97) % Carbon Dioxide (22-30) mmol/L Creatinine (0.66-1.25) mg/dL Glucose (74-99) mg/dL POC Glucose (mg/dL) (75-99) mg/dL Calcium (8.4-10.2) mg/dL Microbiology - Last 24 Hours (Table) 05/19/19 12:20 Gram Stain - Preliminary Pleural Fluid Body Fluid Culture - Preliminary 05/21/19 14:32 Gram Stain - Preliminary Bronchial Washings - Right Bronchial Washings Culture - Preliminary 05/21/19 14:32 Fungal Culture - Preliminary Bronchoalviolar Lavage - Right 05/21/19 14:32 Acid Fast Bacilli Culture - Preliminary Bronchoalviolar Lavage - Right 05/16/19 18:43 Blood Culture - Preliminary Blood No Growth after 120 hours 05/19/19 00:25 Gram Stain - Final Sputum Sputum Culture - Final Viridiana albicans Assessment and Plan Assessment: Impression: 1 acute hypoxic respiratory failure requiring intubation and mechanical ventilation. This is secondary to multilobar pneumonia and possible complicated right-sided pleural effusion. Status post tube thoracostomy postoperative day #3 2 sepsis secondary to pneumonia, and loculated pleural effusion may eventually require decortication. 3 history of multiple comorbidities including bipolar disorder, schizophrenia, and history of head injury 4 history of compartment syndrome of the left lower extremity 5 underlying COPD severity of which is unclear. 6 chronic and ongoing tobacco dependence syndrome. Recommendation: Continue ventilatory support Continue hemodynamic support Continue nutritional support Cultures from the pleural effusion are nondiagnostic, cultures from the lavage are pending. Continue empiric antibiotics presently on vancomycin, Levaquin, and Zosyn Continue GI and DVT prophylaxis. Patient will be given a trial of weaning today, and if tolerated may proceed to extubation. In the meantime continue all supportive care measures as noted above. Discussed his condition with infectious disease on the case. No family members available at bedside. Patient remains critically ill, may eventually require decortication and this will be left to be decided upon by surgery on the case. We'll continue to follow. Critical care time is 35 minutes. Time with Patient: Greater than 30
[2019-05-22 12:29] LABS: Glucose,Whole Blood 128 mg/dL (75-99)
[2019-05-22] MEDS: KETOROLAC 30 MG/ML 1 ML VIAL IVP PRN ×2 (14:19→21:23)
[2019-05-22] MEDS: LORazepam 2 MG/ML INJ IV PRN ×2 (15:32→21:26)
[2019-05-22 17:21] LABS: Glucose,Whole Blood 103 mg/dL (75-99)
[2019-05-22] MEDS: LEVOFLOXACIN 750MG-D5W PMX 750 MG in DEXTROSE/WATER 1 150ML.BAG IVPB SCH (18:21)
[2019-05-22] MEDS: ONDANSETRON 4 MG/2 ML VIAL IVP PRN (19:01)
[2019-05-22 21:09] LABS: Glucose,Whole Blood 161 mg/dL (75-99)
[2019-05-22] MEDS: DOXEPIN 25 MG CAP PO SCH (21:10)
--- NOTE | 2019-05-22 23:22 | P.PN ---
Subjective Progress Note Date: 05/22/19 54-year-old male who is a long-standing history of bipolar disorder schizophrenia and a closed head injury presents to the emergency center with increasing shortness of breath. It is noted that before his intubation the patient was a poor historian and he was concerned that he was having withdrawal from benzodiazepine therapy. At admission his chest x-ray was abnormal with a right pleural effusion and right lower lobe consolidation. He had evidence of fever and leukocytosis as well as pleuritic chest pain. He was tachycardic and was resuscitated and treated with antibiotic therapy of Zosyn and Levaquin. The patient's status has declined. He developed respiratory failure requiring i ntubation sedation and mechanical ventilation. He also had a chest tube applied to the right pleural effusion. His required vasopressor therapy that is also being titrated. His oxygenation is improved he is on a lower FiO2 but still a PEEP of 12. He is on propofol and very comfortable. 05/20/2018 the patient is remaining intubated sedated and mechanically ventilated. He is otherwise quite comfortable. We'll rule him for a follow-up computed tomography scan to evaluate his pulmonary status and pneumonia. His temperature was 1013 is now 98.2. 05/22/2019 patient is more comfortable today. He has had improvement of his status and is currently on CPAP with plans for extubation in the near future. He is currently quite comfortable with no acute complaint. He is afebrile and his writing on the pad of his desire to be extubated. Objective - Vital Signs Vital signs: Vital Signs Temp 98.5 F 05/22/19 20:00 Pulse 86 05/22/19 23:00 Resp 19 05/22/19 23:00 BP 109/67 05/22/19 10:00 Pulse Ox 98 05/22/19 23:00 Intake & Output 05/22/19 05/22/19 05/23/19 06:59 18:59 06:59 Intake Total 2762.575 7472.103 5180 Output Total 1600 3020 465 Balance 1162.575 -1299.368 915 Weight 75.3 kg Intake: IV 1900 1300 900 Lactated Ringers 1,000 ml 1200 1200 400 @ 100 mls/hr IV .Q10H [facility] Rx#:[id number] Levofloxacin 750Mg-D5w 100 150 Pmx 750 mg In Dextrose/ Water 1 150ml.bag @ 100 mls/hr IVPB Q24H [facility] Rx#: [id number] Piperacillin-Tazobactam 3 100 100 100 .375 gm In Sodium Chloride 0.9% 100 ml @ 25 mls/hr IVPB Q8HR [facility] Rx# :[id number] Vancomycin 1,250 mg In 500 Sodium Chloride 0.9% 250 ml @ 125 mls/hr IVPB Q8H [facility] Rx#:[id number] Vancomycin 1,500 mg In 250 Sodium Chloride 0.9% 250 ml @ 125 mls/hr IVPB Q8H [facility] Rx#:[id number] Intake, IV Titration 208.575 110.632 Amount Norepinephrine 32 mg In 8.575 9.503 Sodium Chloride 0.9% 218 ml @ 0.07 MCG/KG/MIN 2. 136 mls/hr IV .Q24H [facility] Rx#:[id number] Propofol 1,000 mg In 200 101.129 Empty Bag 1 bag @ Titrate IV .Q0M [facility] Rx#: [id number] Oral 480 Tube Feeding 564 235 Other 90 75 Output: Chest Tube Drainage 240 460 50 Chest Tube Right Lateral 240 460 50 Chest Urine 1360 2560 415 Other: Voiding Method Indwelling Catheter Indwelling Catheter Indwelling Catheter ABP, PAP, CO, CI - Last Documented Arterial Blood Pressure 99/47 - Exam 54 -year-old male intubated remains mechanically ventilated but on CPAP trial and doing well HEENT: Anicteric conjunctiva are pink and moist nasal mucosa grossly intact without significant lesions, there is no thrush Around the endotracheal tube, he is edentulous Neck: The neck is supple without significant lymphadenopathy or thyromegaly. Lungs:Symmetrical bilateral air entry decreased breath sounds at bilateral bases bronchial sounds right base Heart: Regular rate and rhythm with an audible S1-S2, no S3 no S4. There is no significant murmur click or rub, PMI was nondisplaced. Abdomen: Positive bowel sounds soft and nontender without palpable masses or organomegaly. There was no guarding or rebound. Extremities: The upper extremities have excellent pulses they are symmetric, no significant petechiae or telangiectasia. No splinter hemorrhages were noted. The lower extremities are free from significant edema. The peripheral pulses were 2+ and symmetric. Neuro: No awake and alert no longer sedated to be extubated soon - Labs CBC & Chem 7: 05/22/19 06:10 05/22/19 06:10 Labs: Abnormal Lab Results - Last 24 Hours (Table) 05/21/19 05/22/19 05/22/19 Range/Units 23:32 06:10 06:10 WBC (3.8-10.6) k/uL RBC (4.30-5.90) m/uL Hgb (13.0-17.5) gm/dL Hct (39.0-53.0) % Plt Count (150-450) k/uL ABG pH (7.35-7.45) ABG pO2 (83-108) mmHg ABG HCO3 (21-25) mmol/L ABG Total CO2 (19-24) mmol/L ABG O2 Saturation (94-97) % Carbon Dioxide 34 H (22-30) mmol/L Creatinine 0.38 L 0.41 L (0.66-1.25) mg/dL Glucose 140 H (74-99) mg/dL POC Glucose (mg/dL) 109 H (75-99) mg/dL Calcium 7.9 L (8.4-10.2) mg/dL 05/22/19 05/22/19 05/22/19 Range/Units 06:10 06:11 07:15 WBC 16.3 H (3.8-10.6) k/uL RBC 3.08 L (4.30-5.90) m/uL Hgb 9.5 L (13.0-17.5) gm/dL Hct 30.3 L (39.0-53.0) % Plt Count 525 H (150-450) k/uL ABG pH 7.49 H (7.35-7.45) ABG pO2 112 H (83-108) mmHg ABG HCO3 34 H (21-25) mmol/L ABG Total CO2 35 H (19-24) mmol/L ABG O2 Saturation 98.1 H (94-97) % Carbon Dioxide (22-30) mmol/L Creatinine (0.66-1.25) mg/dL Glucose (74-99) mg/dL POC Glucose (mg/dL) 145 H (75-99) mg/dL Calcium (8.4-10.2) mg/dL 05/22/19 05/22/19 05/22/19 Range/Units 11:22 12:26 17:07 WBC (3.8-10.6) k/uL RBC (4.30-5.90) m/uL Hgb (13.0-17.5) gm/dL Hct (39.0-53.0) % Plt Count (150-450) k/uL ABG pH 7.51 H (7.35-7.45) ABG pO2 (83-108) mmHg ABG HCO3 34 H (21-25) mmol/L ABG Total CO2 36 H (19-24) mmol/L ABG O2 Saturation 97.2 H (94-97) % Carbon Dioxide (22-30) mmol/L Creatinine (0.66-1.25) mg/dL Glucose (74-99) mg/dL POC Glucose (mg/dL) 128 H 103 H (75-99) mg/dL Calcium (8.4-10.2) mg/dL 05/22/19 Range/Units 21:06 WBC (3.8-10.6) k/uL RBC (4.30-5.90) m/uL Hgb (13.0-17.5) gm/dL Hct (39.0-53.0) % Plt Count (150-450) k/uL ABG pH (7.35-7.45) ABG pO2 (83-108) mmHg ABG HCO3 (21-25) mmol/L ABG Total CO2 (19-24) mmol/L ABG O2 Saturation (94-97) % Carbon Dioxide (22-30) mmol/L Creatinine (0.66-1.25) mg/dL Glucose (74-99) mg/dL POC Glucose (mg/dL) 161 H (75-99) mg/dL Calcium (8.4-10.2) mg/dL Microbiology - Last 24 Hours (Table) 05/16/19 18:43 Blood Culture - Final Blood No Growth after 144 hours 05/21/19 14:32 Acid Fast Bacilli Smear - Final Bronchoalviolar Lavage - Right Acid Fast Bacilli Culture - Preliminary 05/21/19 14:32 Gram Stain - Preliminary Bronchial Washings - Right Bronchial Washings Culture - Preliminary 05/19/19 12:20 Gram Stain - Preliminary Pleural Fluid Body Fluid Culture - Preliminary 05/21/19 14:32 Fungal Culture - Preliminary Bronchoalviolar Lavage - Right Laboratory Results WBC 16.3 k/uL (3.8-10.6) H 05/22/19 06:10 RBC 3.08 m/uL (4.30-5.90) L 05/22/19 06:10 Hgb 9.5 gm/dL (13.0-17.5) L 05/22/19 06:10 Hct 30.3 % (39.0-53.0) L 05/22/19 06:10 MCV 98.6 fL (80.0-100.0) 05/22/19 06:10 MCH 30.7 pg (25.0-35.0) 05/22/19 06:10 MCHC 31.2 g/dL (31.0-37.0) 05/22/19 06:10 RDW 15.0 % (11.5-15.5) 05/22/19 06:10 Plt Count 525 k/uL (150-450) H 05/22/19 06:10 Neutrophils % 92 % 05/20/19 05:10 Neutrophils % (Manual) 91 % 05/19/19 04:30 Lymphocytes % 3 % 05/20/19 05:10 Lymphocytes % (Manual) 2 % 05/19/19 04:30 Monocytes % 5 % 05/20/19 05:10 Monocytes % (Manual) 7 % 05/19/19 04:30 Eosinophils % 0 % 05/20/19 05:10 Basophils % 0 % 05/20/19 05:10 Neutrophils # 21.3 k/uL (1.3-7.7) H 05/20/19 05:10 Neutrophils # (Manual) 31.85 k/uL (1.3-7.7) H 05/19/19 04:30 Lymphocytes # 0.6 k/uL (1.0-4.8) L 05/20/19 05:10 Lymphocytes # (Manual) 0.70 k/uL (1.0-4.8) L 05/19/19 04:30 Monocytes # 1.1 k/uL (0-1.0) H 05/20/19 05:10 Monocytes # (Manual) 2.45 k/uL (0-1.0) H 05/19/19 04:30 Eosinophils # 0.0 k/uL (0-0.7) 05/20/19 05:10 Basophils # 0.1 k/uL (0-0.2) 05/20/19 05:10 Nucleated RBCs 0 /100 WBC (0-0) 05/19/19 04:30 Manual Slide Review Performed 05/19/19 04:30 Polychromasia Present 05/19/19 04:30 Macrocytosis Slight 05/22/19 06:10 Sample Site bozena 05/22/19 11:22 ABG pH 7.51 (7.35-7.45) H 05/22/19 11:22 ABG pCO2 43 mmHg (35-45) 05/22/19 11:22 ABG pO2 90 mmHg (83-108) 05/22/19 11:22 ABG HCO3 34 mmol/L (21-25) H 05/22/19 11:22 ABG Total CO2 36 mmol/L (19-24) H 05/22/19 11:22 ABG O2 Saturation 97.2 % (94-97) H 05/22/19 11:22 ABG Base Excess 11.4 mmol/L 05/22/19 11:22 Prashant Test na 05/22/19 11:22 FiO2 50 % 05/22/19 11:22 Sodium 139 mmol/L (137-145) 05/22/19 06:10 Potassium 4.5 mmol/L (3.5-5.1) 05/22/19 06:10 Chloride 103 mmol/L (98-107) 05/22/19 06:10 Carbon Dioxide 34 mmol/L (22-30) H 05/22/19 06:10 Anion Gap 2 mmol/L 05/22/19 06:10 BUN 19 mg/dL (9-20) 05/22/19 06:10 Creatinine 0.38 mg/dL (0.66-1.25) L 05/22/19 06:10 Creatinine 0.41 mg/dL (0.66-1.25) L 05/22/19 06:10 Est GFR (CKD-EPI)AfAm >90 (>60 ml/min/1.73 sqM) 05/22/19 06:10 Est GFR (CKD-EPI)AfAm >90 (>60 ml/min/1.73 sqM) 05/22/19 06:10 Est GFR (CKD-EPI)NonAf >90 (>60 ml/min/1.73 sqM) 05/22/19 06:10 Est GFR (CKD-EPI)NonAf >90 (>60 ml/min/1.73 sqM) 05/22/19 06:10 Glucose 140 mg/dL (74-99) H 05/22/19 06:10 POC Glucose (mg/dL) 161 mg/dL (75-99) H 05/22/19 21:06 POC [employer] Senior Associate Freddy Gonzalez 05/22/19 21:06 Plasma Lactic Acid Jared 1.1 mmol/L (0.7-2.0) 05/16/19 18:43 Calcium 7.9 mg/dL (8.4-10.2) L 05/22/19 06:10 Total Bilirubin 1.0 mg/dL (0.2-1.3) 05/16/19 18:43 AST 36 U/L (17-59) 05/16/19 18:43 ALT 33 U/L (21-72) 05/16/19 18:43 Alkaline Phosphatase 71 U/L (38-126) 05/16/19 18:43 Total Protein 6.4 g/dL (6.3-8.2) 05/16/19 18:43 Albumin 3.0 g/dL (3.5-5.0) L 05/16/19 18:43 Urine Color Yellow 05/19/19 12:20 Urine Appearance Clear (Clear) 05/19/19 12:20 Urine pH 6.5 (5.0-8.0) 05/19/19 12:20 Ur Specific [place] 1.038 (1.001-1.035) H 05/19/19 12:20 Urine Protein 1+ (Negative) H 05/19/19 12:20 Urine Glucose (UA) Negative (Negative) 05/19/19 12:20 Urine Ketones Negative (Negative) 05/19/19 12:20 Urine Blood Negative (Negative) 05/19/19 12:20 Urine Nitrite Negative (Negative) 05/19/19 12:20 Urine Bilirubin Negative (Negative) 05/19/19 12:20 Urine Urobilinogen <2.0 mg/dL (<2.0) 05/19/19 12:20 Ur Leukocyte Esterase Negative (Negative) 05/19/19 12:20 Urine RBC 5 /hpf (0-5) 05/19/19 12:20 Urine WBC 3 /hpf (0-5) 05/19/19 12:20 Ur Squamous Epith Cells <1 /hpf (0-4) 05/19/19 12:20 Urine Bacteria Rare /hpf (None) H 05/19/19 12:20 Hyaline Casts 101 /lpf (0-2) H 05/16/19 18:43 Urine Mucus Rare /hpf (None) H 05/19/19 12:20 Fluid Source Bronchial Wash 05/21/19 14:32 Fluid Color Colorless 05/21/19 14:32 Fluid Appearance Hazy 05/21/19 14:32 Fluid RBC 20 /uL 05/21/19 14:32 Fluid Nucleated Cells 330 /uL 05/21/19 14:32 Fluid Polynuclear WBCs 91 % 05/21/19 14:32 Fluid Mononuclear WBCs 9 % 05/21/19 14:32 Body Fluid Glucose Source Pleural Fluid 05/19/19 12:20 Fluid Glucose 31 mg/dL 05/19/19 12:20 Body Fluid Protein Source Pleural Fluid 05/19/19 12:20 Fluid Total Protein 3900 mg/dL 05/19/19 12:20 Body Fluid LDH Source Pleural Fluid 05/19/19 12:20 Fluid LDH 2122 U/L 05/19/19 12:20 Fluid Comment Few Mesothelial 05/19/19 12:20 Vancomycin Trough 14.3 ug/mL 05/21/19 04:04 Salicylates <1.0 mg/dL 05/16/19 18:43 Urine Opiates Screen Not Detected (NotDetected) 05/16/19 18:43 Ur Oxycodone Screen Not Detected (NotDetected) 05/16/19 18:43 Urine Methadone Screen Not Detected (NotDetected) 05/16/19 18:43 Ur Propoxyphene Screen Not Detected (NotDetected) 05/16/19 18:43 Acetaminophen <10.0 ug/mL 05/16/19 18:43 Ur Barbiturates Screen Not Detected (NotDetected) 05/16/19 18:43 U Tricyclic Antidepress Detected (NotDetected) H 05/16/19 18:43 Ur Phencyclidine Scrn Not Detected (NotDetected) 05/16/19 18:43 Ur Amphetamines Screen Not Detected (NotDetected) 05/16/19 18:43 U Methamphetamines Scrn Not Detected (NotDetected) 05/16/19 18:43 U Benzodiazepines Scrn Detected (NotDetected) H 05/16/19 18:43 Urine Cocaine Screen Not Detected (NotDetected) 05/16/19 18:43 U Marijuana (THC) Screen Not Detected (NotDetected) 05/16/19 18:43 Serum Alcohol <10 mg/dL 05/16/19 18:43 Influenza Type A RNA Not Detected (Not Detectd) 05/16/19 18:43 Influenza Type B (PCR) Not Detected (Not Detectd) 05/16/19 18:43 Microbiology 05/16/19 18:43 Blood Blood Culture - Final No Growth after 144 hours 05/21/19 14:32 Bronchoalviolar Lavage - Right Acid Fast Bacilli Smear - Final 05/21/19 14:32 Bronchoalviolar Lavage - Right Acid Fast Bacilli Culture - Preliminary 05/21/19 14:32 Bronchial Washings - Right Gram Stain - Preliminary 05/21/19 14:32 Bronchial Washings - Right Bronchial Washings Culture - Preliminary 05/19/19 12:20 Pleural Fluid Gram Stain - Preliminary 05/19/19 12:20 Pleural Fluid Body Fluid Culture - Preliminary 05/21/19 14:32 Bronchoalviolar Lavage - Right Fungal Culture - Preliminary 05/19/19 00:25 Sputum Gram Stain - Final 05/19/19 00:25 Sputum Sputum Culture - Final Viridiana albicans 05/19/19 12:20 Pleural Fluid Acid Fast Bacilli Smear - Final 05/19/19 12:20 Pleural Fluid Acid Fast Bacilli Culture - Preliminary 05/19/19 12:20 Pleural Fluid Fungal Culture - Preliminary Assessment and Plan (1) Community acquired bacterial pneumonia Narrative/Plan: 54-year-old male it is a complex past medical history with his underlying mental illness and history of head trauma with significant compromise status. Presents to hospital with significant shortness of breath but evidence of the extensive pleural effusion to the right chest and the pneumonia. Chest tube is in place and is receiving appropriate antibiotic therapy this time with Zosyn and Levaquin with his intensive care unit stay and concerns for potential gram-negative pneumonia as well as aspiration. Pleural fluid has been sent as a sputum culture to further help direct antibiotic therapy. The patient has had some improvement of his status with decreasing oxygen requirements throughout the day but still remains on PEEP of 12. Hemodynamically he is stable to improved requiring less vasopressor therapy. Adequate urinary output is noted. He has an extensive leukocytosis directly related to his extensive pneumonia and possible empyema. 05/20/2019 the patient is requiring ongoing mechanical ventilation. Cultures are pending from his sputum as well as the drainage from the pleural effusion. Continue current antibiotic therapy. Continue with supportive care. Is noted his PEEP did decrease. Vasopressor therapy. Cultures to further help direct antibiotic therapy. 05/22/2019 the patient is having improvement will likely be extubated today. He is doing well on current antibiotic therapy off of vasopressor therapy and improving pulmonary status. Cultures are pending responding well to current antibiotic therapy cultures will further direct The time of discharge AFB negative so far fungal culture negative so far. Current Visit: Yes Status: Acute Code(s): J15.9 - UNSPECIFIED BACTERIAL PNEUMONIA SNOMED Code(s): 780113111 (2) Acute respiratory failure with hypoxia and hypercapnia Current Visit: Yes Status: Acute Code(s): J96.01 - ACUTE RESPIRATORY FAILURE WITH HYPOXIA; J96.02 - ACUTE RESPIRATORY FAILURE WITH HYPERCAPNIA SNOMED Code(s): 380667238 (3) Leukocytosis Current Visit: Yes Status: Acute Code(s): D72.829 - ELEVATED WHITE BLOOD CELL COUNT, UNSPECIFIED SNOMED Code(s): 180647127
--- NOTE | 2019-05-22 23:48 | P.PN ---
Progress Note - Text Progress Note Date: 05/22/19 Interval history: This is a 54-year-old patient of Dr. andino from [place]. Unable to get much of history from the patient as he mumbles then he remains quite. I gather from the ER notes that he apparently is homeless 2. Patient's history include closed head injury bipolar neuropathy COPD. Patient is an active smoker at least 2 packs a day. He did present to the ER stating that he is withdrawing from benzodiazepines and he is out of the same. He does follow with Dr. Rivero from out of the [facility]. Patient is very congested chronic cough so tired and is not able to expectorate. Having fever and tachycardia when initially presented. Was started on IV antibiotics. Pulmonary was consulted. Patient just about wakes up to speak that goes back to sleep. Patient was diagnosed to have severe pneumonia, parapneumonic effusion, sepsis, suspected empyema delirium, COPD exacerbation. Cardiothoracic surgery was consulted with a view to chest tube/thoracotomy On May 19, Dr. Rai put in a chest tube. About 1100 mL of serosanguineous fluid was obtained. Patient intubated. Patient extubated on May 22 Today-ICU. Extubated today. Sitting up. Awake answering occasional questions. Tired. . Alteplase was placed in the chest tube yesterday and today. Review of systems: Attempted to answer occasional questions Active Medications Acetaminophen (Tylenol Tab) 650 mg PO Q6HR PRN PRN Reason: Fever and/ or Pain Last Admin: 05/18/19 17:12 Dose: 650 mg Documented by: Albuterol/Ipratropium (Duoneb 0.5 Mg-3 Mg/3 Ml Soln) 3 ml INHALATION RT-QID [facility] Last Admin: 05/22/19 19:36 Dose: 3 ml Documented by: Aripiprazole (Abilify) 10 mg PO DAILY [facility] Last Admin: 05/22/19 09:01 Dose: 10 mg Documented by: Baclofen (Lioresal) 5 mg PO QID PRN PRN Reason: Muscle Spasm Last Admin: 05/21/19 20:54 Dose: 5 mg Documented by: Buspirone HCl (Buspar) 10 mg PO BID [facility] Last Admin: 05/22/19 21:09 Dose: 10 mg Documented by: Diazepam (Valium) 5 mg IVP Q4H PRN PRN Reason: Seizures Doxepin HCl (Sinequan) 150 mg PO HS [facility] Last Admin: 05/22/19 21:10 Dose: 150 mg Documented by: Enoxaparin Sodium (Lovenox) 40 mg SQ DAILY [facility] Last Admin: 05/22/19 09:00 Dose: 40 mg Documented by: Gabapentin (Neurontin) 600 mg PO TID [facility] Last Admin: 05/22/19 21:10 Dose: 600 mg Documented by: Hydromorphone HCl (Dilaudid) 1 mg IM ONCE PRN PRN Reason: Pain Levofloxacin 750 mg/ IV (Solution) 150 mls @ 100 mls/hr IVPB Q24H [facility] Stop: 05/29/19 19:31 Last Admin: 05/22/19 18:21 Dose: 100 mls/hr Documented by: Piperacillin Sod/Tazobactam (Sod 3.375 gm/ Sodium Chloride) 100 mls @ 25 mls/hr IVPB Q8HR [facility] Stop: 05/27/19 08:01 Last Admin: 05/22/19 15:53 Dose: 25 mls/hr Documented by: Lactated Ringer's (Lactated Ringers) 1,000 mls @ 100 mls/hr IV .Q10H [facility] Last Admin: 05/22/19 23:08 Dose: 100 mls/hr Documented by: Norepinephrine Bitartrate 32 (mg/ Sodium Chloride) 250 mls @ 2.136 mls/hr IV .Q24H [facility]; Protocol Last Titration: 05/22/19 09:15 Dose: 0 mcg/kg/min, 0 mls/hr Documented by: Vancomycin HCl 1,500 mg/ (Sodium Chloride) 250 mls @ 125 mls/hr IVPB Q8H [facility] Last Admin: 05/22/19 21:23 Dose: 125 mls/hr Documented by: Insulin Aspart (Novolog) 0 unit SQ ACHS [facility]; Protocol Ketorolac Tromethamine (Toradol) 15 mg IVP Q6HR PRN PRN Reason: Pain Stop: 05/23/19 13:31 Last Admin: 05/22/19 21:23 Dose: 15 mg Documented by: Lorazepam (Ativan) 1 mg IV Q6HR PRN PRN Reason: Anxiety Last Admin: 05/22/19 21:26 Dose: 1 mg Documented by: Lurasidone HCl (Latuda) 20 mg PO BID-W/MEALS [facility] Last Admin: 05/22/19 18:16 Dose: 20 mg Documented by: Methylprednisolone Sodium Succinate (Solu-Medrol) 40 mg IV Q8HR [facility] Last Admin: 05/22/19 15:53 Dose: 40 mg Documented by: Miscellaneous Information (Pneumonia Protocol Utilized) 1 each PO ONCE PRN PRN Reason: Per Protocol Miscellaneous Information (Vancomycin Trough Due) 1 each MISCELLANE ONCE ONE Stop: 05/23/19 05:01 Naloxone HCl (Narcan) 0.2 mg IV Q2M PRN PRN Reason: Opioid Reversal Nicotine (Habitrol 21mg/24hr Patch) 1 patch TRANSDERM DAILY [facility] Last Admin: 05/22/19 09:00 Dose: 1 patch Documented by: Buprenorphine Hcl [ (Subutex] 8 Mg) 8 mg SUBLINGUAL AC-TID [facility] Last Admin: 05/22/19 18:11 Dose: Not Given Documented by: Ondansetron HCl (Zofran) 4 mg IVP Q6HR PRN PRN Reason: Nausea And Vomiting Last Admin: 05/22/19 19:01 Dose: 4 mg Documented by: Pantoprazole Sodium (Protonix) 40 mg IV DAILY [facility] Last Admin: 05/22/19 09:01 Dose: 40 mg Documented by: Physical examination: VITAL SIGNS: 99.5, 68, 20, 11 5/69, 138/52 on mask GENERAL: Sitting up, awake tired. EYES: Pupils equal. Conjunctiva pale HEENT: External appearance of nose and ears normal, oral cavity dry.endotracheal tube in place NECK: JVD unable to assess; masses not palpable. HEART: First and second heart sounds are normal; no edema. LUNGS: Respiratory rate increased, diminished breath sounds. right-sided chest tube in place ABDOMEN: Soft, nontender, liver spleen not palpable, no masses palpable. PSYCH: unable to assess as patient is intubated INVESTIGATIONS, reviewed in the clinical context: White count 16.3 hemoglobin 8.58 and 0.41 Sputum growing Viridiana albicans other cultures pending Previous investigations White count 28.5 hemoglobin 12.1 sodium 127 potassium 4.1. Creatinine 0.81 albumin 3.0 UA negative for leukoesterase and nitrites Chest x-ray film personally reviewed by me-shows dense consolidation of the right side with questionable fluid Computed tomography scan of the chest shows complex lobular take fluid collection in the right extending across the midline diffuse airspace disease in the right with bullous changes in the apex lobes no solid mass reported CT chest-multiple loculated right-sided pleural effusion are again noted. On the sliding interval improvement.. Interval development of coarse infiltrate for the left lung. Assessment: -Bilateral multilobar pneumonia with right parapneumonic effusion with loculated fluid, with sepsis, slow to respond -Right-sided chest tube placed, initially about 1100 mL of fluid obtained, status post alteplase -Acute hypoxic respiratory failure from above, now on ventilator support -Acute delirium with encephalopathy secondary to underlying sepsis, -Acute COPD exacerbation in a current smoker, slow to respond -nicotine dependence patient's cigarette smoker -Idiopathic peripheral neuropathy -Bipolar disorder -Hyponatremia -Hypoalbuminemia could be an acute phase reactant Plan: Patient status post bronchoscopy. Status post alteplase. Extubated today. Cultures pending. Follow. Remains in the ICU.
[2019-05-23] MEDS: Buprenorphine Hcl [Subutex] 8 MG SUBLINGUAL SCH ×3 (03:42→15:46)
[2019-05-23] MEDS: busPIRone HCl 10 MG TAB PO SCH ×4 (03:59→20:22)
[2019-05-23] MEDS: DOXEPIN 25 MG CAP PO SCH ×2 (03:59→22:58)
[2019-05-23] MEDS: KETOROLAC 30 MG/ML 1 ML VIAL IVP PRN (04:00)
[2019-05-23] MEDS: LORazepam 2 MG/ML INJ IV PRN ×3 (04:02→15:11)
[2019-05-23] MEDS ORDERED: VANCOMYCIN TROUGH DUE 1 EACH MISC MISCELLANE ONE (05:00)
[2019-05-23 05:52] LABS: HCT 31.6 % (39.0-53.0); HGB 9.9 gm/dL (13.0-17.5); MCH 30.9 pg (25.0-35.0); MCHC 31.4 g/dL (31.0-37.0); MCV 98.4 fL (80.0-100.0); Mean Platelet Volume 7.1; Platelet Count 529 k/uL (150-450); RBC 3.21 m/uL (4.30-5.90); RDW 14.7 % (11.5-15.5); WBC 18.3 k/uL (3.8-10.6)
[2019-05-23 06:20] LABS: African American GFR (CKD) >90 (>60 ml/min/1.73 sqM); Anion Gap 1 mmol/L; Blood Urea Nitrogen 17 mg/dL (9-20); Calcium 7.7 mg/dL (8.4-10.2); Carbon Dioxide 35 mmol/L (22-30); Chloride 101 mmol/L (98-107); Glucose 113 mg/dL (74-99); Potassium 4.7 mmol/L (3.5-5.1); Sodium 137 mmol/L (137-145)
[2019-05-23 06:57] LABS: Glucose,Whole Blood 100 mg/dL (75-99)
[2019-05-23] MEDS: INSULIN ASPART (NovoLOG) 100 UNIT/ML VIAL SQ SCH ×4 (06:58→22:09)
[2019-05-23] MEDS: LURASIDONE 20 MG TAB PO SCH ×2 (07:00→17:32)
[2019-05-23] MEDS: VANCOMYCIN 1,500 MG in SODIUM CHLORIDE 0.9% 250 ML IVPB SCH ×3 (07:00→22:10)
--- NOTE | 2019-05-23 07:53 | XR ---
EXAMINATION TYPE: XR chest 1V portable DATE OF EXAM: 05/23/2019 COMPARISON: 05/22/2019 HISTORY: Tube placement. TECHNIQUE: Single frontal view of the chest is obtained. FINDINGS: Endotracheal and enteric tubes have been removed in the interim. Right thoracostomy tube i s unchanged in placement. There is increasing right middle lobe opacity. Right-sided subclavian appro ach central venous line is unchanged. Trace bilateral pleural effusions. Pulmonary hyperinflation of underlying COPD is seen. Strand-like left basilar atelectasis is noted. Very minimal interstitial pul monary edema. IMPRESSION: 1. Interval removal of the endotracheal and enteric tubes. 2. Stable right thoracostomy and right central venous catheter. 3. Increasing right middle lobe airspace disease. Stable left basilar atelectasis. 4. Minimal interstitial pulmonary edema and trace bilateral pleural effusions.
[2019-05-23] MEDS: IPRATROPIUM-ALBUTEROL 3 ML NEB INHALATION SCH ×4 (08:16→20:13)
[2019-05-23] MEDS: methylPREDNISolone SOD SUCCI 40 MG/ML 1 ML VIAL IV SCH ×2 (08:19→20:22)
[2019-05-23] MEDS: PIPERACILLIN-TAZOBACTAM 3.375 GM in SODIUM CHLORIDE 0.9% 100 ML IVPB SCH ×2 (08:19→15:11)
[2019-05-23] MEDS: NICOTINE 21MG/24HR PATCH TRANSDERM SCH (08:19)
[2019-05-23] MEDS: GABAPENTIN 300 MG CAP PO SCH ×3 (08:20→22:09)
[2019-05-23] MEDS: ENOXAPARIN 40 MG/0.4 ML SYRINGE SQ SCH (08:20)
[2019-05-23] MEDS: LACTATED RINGERS 1,000 ML IV SCH ×2 (08:20→20:20)
[2019-05-23] MEDS: ARIPiprazole 10 MG TAB PO SCH ×2 (08:20→08:44)
[2019-05-23] MEDS: PANTOPRAZOLE 40 MG/10 ML VIAL IV SCH (08:20)
--- NOTE | 2019-05-23 09:54 | P.PN ---
Subjective Progress Note Date: 05/23/19 Principal diagnosis: Community-acquired bacterial pneumonia, acute respiratory failure with hypoxia and hypercapnia, leukocytosis. Past medical history significant for chronic obstructive pulmonary disease, chronic and ongoing tobacco dependence, history of closed head injury, bipolar disorder, paranoid schizophrenia, narcotic and illicit drug use. Status post day #2 bronchoscopy and bronchoalveolar lavage of the right lower lobe, bronchial alveolar lavage of the left lower lobe and lingula and suctioning of mucous plugging in both lower lobes performed by Dr. Harris. Status post day #4 intubation with mechanical ventilator support. Right thoracostomy chest tube placement placed by Dr. Rai. Right subclavian triple-lumen central line placement by Dr. Rai. The patient is resting in bed in the intensive care unit. He is in no acute distress. The patient was extubated yesterday at around 12:15 PM, currently he is on 3 L nasal cannula with oxygen saturations 93%. He is achieving 1526-0862 mL on his incentive spirometry with encouragement. He remains hemodynamically stable and is currently on no inotropic or pressor support. He has been afebrile in the last 24 hours. His lab results this morning show a WBC count 18.3, hemoglobin 9.9, platelets 529, BUN 17, and creatinine 0.47. He is alert and oriented 3. He remains with a right pleural chest tube in place to low continuous wall suction -20 cm H2O. No air leak is present. Draining thin serous with thick whitish sediment drainage. 500 mL output in the last 24 hours. There is some purulent colored drainage coming from around his chest tube insertion site. He has received 2 doses of alteplase 10 mg/100 mL of normal saline over the last 2 days. Bedside telemetry showing normal sinus rhythm heart rate 89 and current blood pressure is 146/64. A chest x-ray was completed this morning which showed increasing right middle lobe airspace disease and minimal interstitial pulmonary edema and trace bilateral pleural effusions. He has a right subclavian triple-lumen in place and is functioning. Cespedes catheter is in place for accurate I&O with good urine output. Objective - Vital Signs Vital signs: Vital Signs Temp 97.7 F 05/23/19 08:00 Pulse 88 05/23/19 08:27 Resp 17 05/23/19 08:00 BP 109/67 05/22/19 10:00 Pulse Ox 94 L 05/23/19 08:00 Intake & Output 05/22/19 05/23/19 05/23/19 18:59 06:59 18:59 Intake Total 7121.781 1123 650 Output Total 3020 1100 190 Balance -4244.965 2193 460 Weight 76.1 kg Intake: IV 1300 1800 650 Lactated Ringers 1,000 ml 1200 1200 300 @ 100 mls/hr IV .Q10H [facility] Rx#:[id number] Levofloxacin 750Mg-D5w 150 Pmx 750 mg In Dextrose/ Water 1 150ml.bag @ 100 mls/hr IVPB Q24H [facility] Rx#: [id number] Piperacillin-Tazobactam 3 100 200 100 .375 gm In Sodium Chloride 0.9% 100 ml @ 25 mls/hr IVPB Q8HR [facility] Rx# :[id number] Vancomycin 1,500 mg In 250 250 Sodium Chloride 0.9% 250 ml @ 125 mls/hr IVPB Q8H [facility] Rx#:[id number] Intake, IV Titration 110.632 Amount Norepinephrine 32 mg In 9.503 Sodium Chloride 0.9% 218 ml @ 0.07 MCG/KG/MIN 2. 136 mls/hr IV .Q24H [facility] Rx#:[id number] Propofol 1,000 mg In 101.129 Empty Bag 1 bag @ Titrate IV .Q0M [facility] Rx#: [id number] Oral 720 Tube Feeding 235 Other 75 Output: Chest Tube Drainage 460 150 Chest Tube Right Lateral 460 150 Chest Urine 2560 950 190 Other: Voiding Method Indwelling Catheter Indwelling Catheter # Bowel Movements 1 ABP, PAP, CO, CI - Last Documented Arterial Blood Pressure 144/69 - Constitutional General appearance: Present: cooperative, no acute distress, thin - Respiratory Details: Lung sounds are diminished to his bilateral bases with some few scattered rhonchi throughout. Respirations are symmetrical and nonlabored. Oxygen saturation are 93% on 3 L nasal cannula. Achieving 4832-4211 mL on his incentive spirometry with encouragement. Right pleural chest tube in place to low continuous wall suction -20 cm H2O. No air leak is present. Draining thin serous drainage with whitish color thick sediment. - Cardiovascular Details: Regular rhythm and rate. S1 and S2 present, negative for S3, gallop or murmur. Knee-high sequential compression devices in place was bilateral lower extremities. Bedside telemetry showing normal sinus rhythm heart rate 89. No edema present. - Gastrointestinal Gastrointestinal Comment(s): Abdomen is soft, nontender and nondistended. Active bowel sounds present ABDOMINAL QUADRANTS. NO GUARDING OR RIGIDITY. NO ORGANOMEGALY APPRECIATED. - Genitourinary Genitourinary Comment(s): Cespedes catheter for accurate I&O. Draining clear katia urine. - Integumentary Integumentary Comment(s): Skin is warm and dry. No clubbing or cyanosis is present. No rash or abnormal pigmentation is present. Right pleural chest tube dressing clean, dry and in place. - Neurologic Neurologic Comment(s): No focal deficits. Neurologic: Present: CNII-XII intact - Musculoskeletal Musculoskeletal: Present: generalized weakness, strength equal bilaterally - Psychiatric Psychiatric: Present: A&O x's 3, appropriate affect, intact judgment & insight - Allied health notes Allied health notes reviewed: nursing - Labs CBC & Chem 7: 05/23/19 05:30 05/23/19 05:30 Labs: Abnormal Lab Results - Last 24 Hours (Table) 05/22/19 05/22/19 05/22/19 Range/Units 11:22 12:26 17:07 WBC (3.8-10.6) k/uL RBC (4.30-5.90) m/uL Hgb (13.0-17.5) gm/dL Hct (39.0-53.0) % Plt Count (150-450) k/uL ABG pH 7.51 H (7.35-7.45) ABG HCO3 34 H (21-25) mmol/L ABG Total CO2 36 H (19-24) mmol/L ABG O2 Saturation 97.2 H (94-97) % Carbon Dioxide (22-30) mmol/L Creatinine (0.66-1.25) mg/dL Glucose (74-99) mg/dL POC Glucose (mg/dL) 128 H 103 H (75-99) mg/dL Calcium (8.4-10.2) mg/dL 05/22/19 05/23/19 05/23/19 Range/Units 21:06 05:30 05:30 WBC 18.3 H (3.8-10.6) k/uL RBC 3.21 L (4.30-5.90) m/uL Hgb 9.9 L (13.0-17.5) gm/dL Hct 31.6 L (39.0-53.0) % Plt Count 529 H (150-450) k/uL ABG pH (7.35-7.45) ABG HCO3 (21-25) mmol/L ABG Total CO2 (19-24) mmol/L ABG O2 Saturation (94-97) % Carbon Dioxide 35 H (22-30) mmol/L Creatinine 0.47 L (0.66-1.25) mg/dL Glucose 113 H (74-99) mg/dL POC Glucose (mg/dL) 161 H (75-99) mg/dL Calcium 7.7 L (8.4-10.2) mg/dL 05/23/19 Range/Units 06:54 WBC (3.8-10.6) k/uL RBC (4.30-5.90) m/uL Hgb (13.0-17.5) gm/dL Hct (39.0-53.0) % Plt Count (150-450) k/uL ABG pH (7.35-7.45) ABG HCO3 (21-25) mmol/L ABG Total CO2 (19-24) mmol/L ABG O2 Saturation (94-97) % Carbon Dioxide (22-30) mmol/L Creatinine (0.66-1.25) mg/dL Glucose (74-99) mg/dL POC Glucose (mg/dL) 100 H (75-99) mg/dL Calcium (8.4-10.2) mg/dL Microbiology - Last 24 Hours (Table) 05/21/19 14:32 Gram Stain - Preliminary Bronchial Washings - Right Bronchial Washings Culture - Preliminary Viridiana albicans Yeast species 05/19/19 12:20 Gram Stain - Final Pleural Fluid Body Fluid Culture - Final 05/16/19 18:43 Blood Culture - Final Blood No Growth after 144 hours 05/21/19 14:32 Acid Fast Bacilli Smear - Final Bronchoalviolar Lavage - Right Acid Fast Bacilli Culture - Preliminary - Imaging and Cardiology Chest x-ray: report reviewed, image reviewed Assessment and Plan Assessment: 1. Hypoxic respiratory failure, post intubation mechanical ventilation 2. Right loculated pleural effusion, status post right-sided chest tube placement 3. Sepsis secondary to multilobar community-acquired pneumonia 4. Leukocytosis, secondary to above 5. Hypotension requiring norepinephrine support 6. Chronic and ongoing tobacco dependence 7. Chronic obstructive pulmonary disease 8. Paranoid schizophrenia 9. Bipolar disorder 10. History of closed head injury 11. History of compartment syndrome of the left lower extremity Plan: 1. Keep right-sided pleural chest tube to low continuous wall suction -20 cm H2O. continue to record accurate I&O. 2. Bronchodilators and corticosteroids management per pulmonary and critical care management. 3. Antibiotic management per infectious disease recommendations. 4. Continue to monitor daily labs and chest x-rays. 5. DVT and GI prophylaxis. 6. Medical management and other comorbidities management per primary care service. 7. Nutrition management per dietitian's recommendations. 8. Once we obtain a computed tomography scan of his chest to evaluate his loculated effusions a decision will be made for further Alteplase treatments. 9. Gram stain preliminary results from the bronchial washings culture show few Viridiana albicans. 10. We will obtain a computed tomography scan of his chest this morning to reevaluate his right pleural loculated effusions. 11. Encourage use of his incentive spirometry every hour while awake. 12. More recommendations to follow based on patient's clinical course. Time with Patient: Greater than 30
[2019-05-23 10:00] VITALS: BMI 25.4
[2019-05-23] MEDS: NOREPINEPHRINE 32 MG in SODIUM CHLORIDE 0.9% 218 ML IV SCH (10:07)
--- NOTE | 2019-05-23 10:12 | CT ---
EXAMINATION TYPE: CT chest wo con DATE OF EXAM: 05/23/2019 COMPARISON: 05/20/2019 HISTORY: PNA, Effusion CT DLP: 326.6 mGycm, Automated exposure control for dose reduction was used. CONTRAST: Performed injected with 0 mL of Isovue 300. TECHNIQUE: Axial images were obtained at 5 mm thick sections. Reconstructed images are reviewed on Snapguide computer in the coronal plane. FINDINGS: Portion of the thyroid visualized is normal. There are bilateral effusions. These are loculated. Right-sided chest tube is present. The right pleu ral effusion is small. Left pleural effusion is slightly larger. There is a loculation anterior in th e right lung base and likely within the minor fissure on the right. No sizable pneumothorax is eviden t. Tiny amount of free air is along the chest tube track and at the right base. There are some emphysematous changes in the upper lung reyna. Mild diffuse infiltrate may be through the left mid to lower lung field likely related to pulmonary edema. No enlarged mediastinal or hilar adenopathy is evident. The ascending aorta diameter at the level o f the main pulmonary artery is 3.0 cm. The main pulmonary artery diameter at the bifurcation is 3.1 cm. Some mild pulmonary hypertension is likely present. Limited CT sections are obtained through the upper abdomen. Abdomen is essentially unremarkable. IMPRESSIONS: 1. Small loculated pleural effusions on the right. Slightly larger pleural effusion is on the left no t clearly loculated. 2. Chest tube remains in position. 3. There may be minimal pulmonary hypertension.
[2019-05-23] MEDS: amLODIPine 5 MG TAB PO SCH (10:28)
[2019-05-23] MEDS ORDERED: ALTEPLASE 10 MG in SODIUM CHLORIDE 0.9% 100 ML IRRIGATION ONE (10:30)
--- NOTE | 2019-05-23 11:59 | P.PN ---
Subjective Progress Note Date: 05/23/19 Principal diagnosis: Acute hypoxic respiratory failure secondary to multilobar pneumonia and right- sided loculated pleural effusion. This is a 54-year-old gentleman who follows with Dr. Srinivasan as his primary care physician. He has a history of bipolar disorder, closed head injury, schizophrenia, compartment syndrome of the left lower extremity, COPD, chronic and ongoing tobacco dependence. He presented to the emergency room yesterday with altered mental status and fever. The patient himself is a poor historian. He was refusing to give much information. He did feel as though he was withdrawing from benzodiazepines. Urine drug screen was positive for tricyclic antidepressants and benzodiazepines. Chest x-ray showed a new right pleural effusion and right lower lobe consolidation. White count 28.5. Hemoglobin 12.1. Creatinine 0.81. Influenza screen negative. Initial temp 101.1. He is admitted for suspected pneumonia. He is seen today in consultation on the regular medical floor. He is currently awake. He is a poor historian. Unable to give much information. Does complain of right sided chest p ain and pain with inhalation and coughing. He's maintaining O2 saturation in the low 90s on 2 L/m per nasal cannula. He's been afebrile. Somewhat tac hycardic. His been initiated on Zosyn and Levaquin. Lactated Ringer's at 125 ML's per hour. On 05/18/2019 the patient is doing well stable and is hemodynamic stable and afebrile. Still on today's of oxygen by nasal cannula pulse ox is 93%. CAT scan results were noted. Consult was placed for interventional radiology regarding a percutaneous predicted catheter insertion. The patient remains on a combination of antibiotics including Zosyn and Levaquin and vancomycin. The blood cultures negative. Reevaluated today on 05/19/2019, patient was already seen earlier by Dr. Rai, and he placed a right sided chest tube for his worsening right-sided pleural effusion. Patient is now on mechanical ventilation with assist control rate of 20 FiO2 of 50% PEEP of 12 tidal volume of 500. ABG this morning showed a pO2 of 83 pCO2 of 51 pH of 7.38 patient was earlier on 100% FiO2 and high PEEP prior to placement of the chest tube. Over 1500 mL of serosanguineous fluid removed from the right pleural space, results on the fluid are pending. Patient's brother is at bedside, and I updated the brother on his condition. Patient is hemodynamically stable, he is also on propofol, not requiring any pressors at this point. I was able to cut down the FiO2 to 50%, and kept him on a PEEP of 12. His peak airway pressure is in the high 20s, plateau pressure is 23 Patient was reevaluated today on 05/20/2019, remains in the ICU on mechanical ventilation. His ventilator settings are assist control rate of 20 FiO2 is 50% tidal volume is 500 PEEP is down to 8 and set of 12. Patient is off norep inephrine, remains on propofol at 60 mcg/kg/m. His peak airway pressure is in the high 20s plateau pressure is 18. His chest x-ray continues to show areas of loculated effusion, and this was confirmed further by doing a CT of the chest today clearly showed multiple areas of loculation and bilateral pneumonia. The fluid from the chest tube is clearly exudative in nature, with relatively low glucose, it could be malignant or could be infectious, I believe it is mostly infectious rather than malignant. Considering the abnormal CT of the chest, the patient may require thoracotomy and decortication otherwise I doubt that the patient will make dramatic improvement as long as we have ongoing loculated effusion. Thoracic surgery is aware of the condition, may have to approach his brother regarding surgical intervention since the patient refused surgery when he presented initially to the hospital. ABG this morning showed a pO2 of 120 pCO2 of 46 pH of 7.45. Electrodes are normal renal profile is normal WBC count is 23.2 hemoglobin is 10. Microbiology remains negative, blood cultures are negative, Gram stain on the pleural effusion showed no organisms. Patient remains sedated, hemodynamically stable, urine output is decent and acceptable. Reevaluated today on 05/21/2019, remains on mechanical ventilation, in the intensive care unit. Patient is sedated, on fall mostly. His ventilator settings are unchanged, tidal volume of 500 assist control rate of 20 FiO2 is 50% PEEP is 8. ABG today showed a pO2 of 99 pCO2 of 44 pH of 7.48. Cultures from the pleural effusion remain negative. WBC count 13.8 hemoglobin is 9.2 lites are normal renal profile is normal. Patient is hemodynamically stable, not requiring any pressors at present. He is on propofol at 60 mcg/kg/m. IV fluid is at 100 mL/h. And he remains on antibiotics in the form of Zosyn and vancomycin. These are given empirically. No specific positive culture has been noted, hence I plan to bronchoscope the patient today and lavage his right lung. Patient was seen by thoracic surgery, considering decortication, but in the meantime trying thrombolytic therapy via chest tube. Reevaluated today again on 05/22/2019, patient remains in the ICU, mechanically ventilated. His ventilator settings are assist control rate of 20 tidal volume of 500 FiO2 of 50%, and PEEP was cut down to 5. Patient remains on propofol at 45 mcg/kg/m, he is also on norepinephrine at 2 mcg/m. Patient is sedated, however my plan today is to hold sedation, and address weaning parameters and possibly weaning trials of possible. Patient will likely be switched to a pressure support of 8 and CPAP, and if he does well on this, may consider weaning and extubation. Labs today were reviewed ABG showed a pO2 of 112 pCO2 44 pH of 7.49 electrolytes and renal profile are normal WBC count is 16.3 hemoglobin is 9.5. Chest x-ray is showing significant improvement compared to previous x-rays, infiltrates in both lungs are improving, but he continues to have areas of loculated pleural effusion on the right side. Chest tube remains in place, and purulent material is being drained, cultures remain negative from the pleural effusion and the cultures are still negative from the BAL. Remains on Levaquin and Zosyn and vancomycin Reevaluated today on 05/23/2019, patient was extubated yesterday, he is presently off mechanical ventilation, and he tolerated the extubation well. He is presently on 6 L nasal cannula. Patient is in no distress, arousable, follows simple instructions, did not sleep much last night, he seems to be a bit sleepy this morning. Overall the patient continues to have significant and steady improvement. Continues to have purulent drainage from the right-sided chest tube. Cultures remained negative, patient remains on broad-spectrum antibiotics, repeat CT of the chest this morning showed small loculated pleural effusions on the right, small left-sided pleural effusion which is new and not loculated. Continues to have leukocytosis with WBC count of 18.3 hemoglobin is 9.9 electrodes are normal renal profile is normal. Objective - Vital Signs Vital signs: Vital Signs Temp 97.7 F 05/23/19 08:00 Pulse 86 05/23/19 11:28 Resp 20 05/23/19 11:00 BP 119/73 05/23/19 11:00 Pulse Ox 93 L 05/23/19 11:00 Intake & Output 05/22/19 05/23/19 05/23/19 18:59 06:59 18:59 Intake Total 4880.753 6435 800 Output Total 3020 1100 540 Balance -5813.630 1404 260 Weight 76.1 kg 76.1 kg Intake: IV 1300 1800 800 Lactated Ringers 1,000 ml 1200 1200 450 @ 50 mls/hr IV .Q20H [facility] Rx#:[id number] Levofloxacin 750Mg-D5w 150 Pmx 750 mg In Dextrose/ Water 1 150ml.bag @ 100 mls/hr IVPB Q24H [facility] Rx#: [id number] Piperacillin-Tazobactam 3 100 200 100 .375 gm In Sodium Chloride 0.9% 100 ml @ 25 mls/hr IVPB Q8HR [facility] Rx# :[id number] Vancomycin 1,500 mg In 250 250 Sodium Chloride 0.9% 250 ml @ 125 mls/hr IVPB Q8H [facility] Rx#:[id number] Intake, IV Titration 110.632 Amount Norepinephrine 32 mg In 9.503 Sodium Chloride 0.9% 218 ml @ 0.07 MCG/KG/MIN 2. 136 mls/hr IV .Q24H [facility] Rx#:[id number] Propofol 1,000 mg In 101.129 Empty Bag 1 bag @ Titrate IV .Q0M [facility] Rx#: [id number] Oral 720 Tube Feeding 235 Other 75 Output: Chest Tube Drainage 460 150 50 Chest Tube Right Lateral 460 150 50 Chest Urine 2560 950 490 Other: Voiding Method Indwelling Catheter Indwelling Catheter Indwelling Catheter # Bowel Movements 1 ABP, PAP, CO, CI - Last Documented Arterial Blood Pressure 157/73 - Exam Physical Exam: 54-year-old on few liters nasal cannula, in no distress.. Head: Atraumatic, normocephalic. HEENT:[Neck is supple.] [No neck masses.] [No thyromegaly.] [No JVD.] Moist mucous membranes, Chest: [Symmetrical chest expansion, right-sided chest tube is noted, crackles at the bases, no rhonchi, no wheezes.] Cardiac Exam: [Normal S1 and S2, no S3 gallop, no murmur.] Abdomen: [Soft, nontender, no megaly, no rebound, no guarding, normal bowel sounds.] Extremities: [No clubbing, no edema, no cyanosis.] Neurological Exam: Alert, oriented 3, no gross focal neurologic deficits. Psychiatric: Depressed mood, blunt affect, normal mental status examination. Skin: No rashes. - Labs CBC & Chem 7: 05/23/19 05:30 05/23/19 05:30 Labs: Abnormal Lab Results - Last 24 Hours (Table) 05/22/19 05/22/19 05/22/19 Range/Units 12:26 17:07 21:06 WBC (3.8-10.6) k/uL RBC (4.30-5.90) m/uL Hgb (13.0-17.5) gm/dL Hct (39.0-53.0) % Plt Count (150-450) k/uL Carbon Dioxide (22-30) mmol/L Creatinine (0.66-1.25) mg/dL Glucose (74-99) mg/dL POC Glucose (mg/dL) 128 H 103 H 161 H (75-99) mg/dL Calcium (8.4-10.2) mg/dL 05/23/19 05/23/19 05/23/19 Range/Units 05:30 05:30 06:54 WBC 18.3 H (3.8-10.6) k/uL RBC 3.21 L (4.30-5.90) m/uL Hgb 9.9 L (13.0-17.5) gm/dL Hct 31.6 L (39.0-53.0) % Plt Count 529 H (150-450) k/uL Carbon Dioxide 35 H (22-30) mmol/L Creatinine 0.47 L (0.66-1.25) mg/dL Glucose 113 H (74-99) mg/dL POC Glucose (mg/dL) 100 H (75-99) mg/dL Calcium 7.7 L (8.4-10.2) mg/dL Microbiology - Last 24 Hours (Table) 05/21/19 14:32 Gram Stain - Preliminary Bronchial Washings - Right Bronchial Washings Culture - Preliminary Viridiana albicans Yeast species 05/19/19 12:20 Gram Stain - Final Pleural Fluid Body Fluid Culture - Final 05/16/19 18:43 Blood Culture - Final Blood No Growth after 144 hours 05/21/19 14:32 Acid Fast Bacilli Smear - Final Bronchoalviolar Lavage - Right Acid Fast Bacilli Culture - Preliminary Assessment and Plan Assessment: Impression: 1 acute hypoxic respiratory failure requiring intubation and mechanical ventilation. This is secondary to multilobar pneumonia and possible complicated right-sided pleural effusion. Status post tube thoracostomy postoperative day #4, patient was successfully extubated on 05/22/2019, 2 sepsis secondary to pneumonia, and loculated pleural effusion may eventually require decortication. However the CT of the chest this morning seems to be improving, obviously the loculated pleural effusion is improving with thrombolytics given by thoracic surgery on the case. 3 history of multiple comorbidities including bipolar disorder, schizophrenia, and history of head injury 4 history of compartment syndrome of the left lower extremity 5 underlying COPD severity of which is unclear. 6 chronic and ongoing tobacco dependence syndrome. Recommendation: Continue oxygen via nasal cannula, and titrate to keep O2 saturation above 90%. Continue hemodynamic support, blood pressure seems to be a bit elevated today, hence I started the patient on amlodipine 5 mg daily Advanced diet as tolerated. Cultures from the pleural effusion are nondiagnostic, cultures from the lavage are nondiagnostic so far. Continue empiric antibiotics presently on vancomycin, Levaquin, and Zosyn Continue GI and DVT prophylaxis. We'll continue to monitor the patient in the ICU for the next 24 hours, may consider transferring the patient to a regular medical floor in the next day or so. Prognosis remains guarded, may even consider interventional radiology co nsultation for a pigtail catheter placement in the small amount of loculated effusion on the right side. His left-sided pleural effusion is small, and will not require thoracentesis at this point. Time with Patient: Less than 30
[2019-05-23 12:27] LABS: Glucose,Whole Blood 149 mg/dL (75-99)
[2019-05-23] MEDS: KETOROLAC 30 MG/ML 1 ML VIAL IVP SCH (16:46)
[2019-05-23 17:32] LABS: Glucose,Whole Blood 146 mg/dL (75-99)
[2019-05-23] MEDS: HYDROcodone/APAP 5-325MG 1 EACH TAB PO PRN (18:26)
[2019-05-23] MEDS: LEVOFLOXACIN 750MG-D5W PMX 750 MG in DEXTROSE/WATER 1 150ML.BAG IVPB SCH (20:20)
[2019-05-23] MEDS: DIAZEPAM 5 MG/ML 2 ML INJ IVP PRN (20:23)
[2019-05-23 21:01] LABS: Glucose,Whole Blood 169 mg/dL (75-99)
--- NOTE | 2019-05-23 21:55 | P.PN ---
Progress Note - Text Progress Note Date: 05/23/19 Interval history: This is a 54-year-old patient of Dr. andino from [place]. Unable to get much of history from the patient as he mumbles then he remains quite. I gather from the ER notes that he apparently is homeless 2. Patient's history include closed head injury bipolar neuropathy COPD. Patient is an active smoker at least 2 packs a day. He did present to the ER stating that he is withdrawing from benzodiazepines and he is out of the same. He does follow with Dr. Rivero from out of the [facility]. Patient is very congested chronic cough so tired and is not able to expectorate. Having fever and tachycardia when initially presented. Was started on IV antibiotics. Pulmonary was consulted. Patient just about wakes up to speak that goes back to sleep. Patient was diagnosed to have severe pneumonia, parapneumonic effusion, sepsis, suspected empyema delirium, COPD exacerbation. Cardiothoracic surgery was consulted with a view to chest tube/thoracotomy On May 19, Dr. Rai put in a chest tube. About 1100 mL of serosanguineous fluid was obtained. Patient intubated. Patient extubated on May 22 Today-ICU. Feeling better. Tired. More awake. His sitting up in a chair. Did tolerate some diet. Has a cough. Right-sided chest tube present. Review of systems: Was done for constitutional, cardiovascular, GI, pulmonary. relevant finding as above Active Medications Acetaminophen (Tylenol Tab) 650 mg PO Q6HR PRN PRN Reason: Fever and/ or MILD Pain Last Admin: 05/18/19 17:12 Dose: 650 mg Documented by: Hydrocodone Bitart/Acetaminophen (Langley 5-325) 1 each PO Q6HR PRN PRN Reason: MODERATE Pain Last Admin: 05/23/19 18:26 Dose: 1 each Documented by: Albuterol/Ipratropium (Duoneb 0.5 Mg-3 Mg/3 Ml Soln) 3 ml INHALATION RT-QID [facility] Last Admin: 05/23/19 20:13 Dose: 3 ml Documented by: Amlodipine Besylate (Norvasc) 5 mg PO DAILY [facility] Last Admin: 05/23/19 10:28 Dose: 5 mg Documented by: Aripiprazole (Abilify) 10 mg PO DAILY [facility] Last Admin: 05/23/19 08:44 Dose: Not Given Documented by: Baclofen (Lioresal) 5 mg PO QID PRN PRN Reason: Muscle Spasm Last Admin: 05/21/19 20:54 Dose: 5 mg Documented by: Buspirone HCl (Buspar) 10 mg PO BID [facility] Last Admin: 05/23/19 20:22 Dose: 10 mg Documented by: Diazepam (Valium) 5 mg IVP Q4H PRN PRN Reason: Seizures Last Admin: 05/23/19 20:23 Dose: 5 mg Documented by: Doxepin HCl (Sinequan) 150 mg PO HS [facility] Last Admin: 05/23/19 03:59 Dose: Not Given Documented by: Enoxaparin Sodium (Lovenox) 40 mg SQ DAILY [facility] Last Admin: 05/23/19 08:20 Dose: 40 mg Documented by: Gabapentin (Neurontin) 600 mg PO TID [facility] Last Admin: 05/23/19 15:11 Dose: 600 mg Documented by: Levofloxacin 750 mg/ IV (Solution) 150 mls @ 100 mls/hr IVPB Q24H [facility] Stop: 05/29/19 19:31 Last Admin: 05/23/19 20:20 Dose: 100 mls/hr Documented by: Piperacillin Sod/Tazobactam (Sod 3.375 gm/ Sodium Chloride) 100 mls @ 25 mls/hr IVPB Q8HR [facility] Stop: 05/27/19 08:01 Last Admin: 05/23/19 15:11 Dose: 25 mls/hr Documented by: Lactated Ringer's (Lactated Ringers) 1,000 mls @ 50 mls/hr IV .Q20H [facility] Last Admin: 05/23/19 20:20 Dose: 50 mls/hr Documented by: Norepinephrine Bitartrate 32 (mg/ Sodium Chloride) 250 mls @ 2.136 mls/hr IV .Q24H [facility]; Protocol Last Admin: 05/23/19 10:07 Dose: Not Given Documented by: Vancomycin HCl 1,500 mg/ (Sodium Chloride) 250 mls @ 125 mls/hr IVPB Q8H [facility] Last Admin: 05/23/19 13:51 Dose: 125 mls/hr Documented by: Insulin Aspart (Novolog) 0 unit SQ ACHS [facility]; Protocol Last Admin: 05/23/19 17:33 Dose: 1 unit Documented by: Ketorolac Tromethamine (Toradol) 15 mg IVP Q6HR [facility] Stop: 05/25/19 18:01 Last Admin: 05/23/19 16:46 Dose: 15 mg Documented by: Lorazepam (Ativan) 1 mg IV Q6HR PRN PRN Reason: Anxiety Last Admin: 05/23/19 15:11 Dose: 1 mg Documented by: Lurasidone HCl (Latuda) 20 mg PO BID-W/MEALS [facility] Last Admin: 05/23/19 17:32 Dose: 20 mg Documented by: Methylprednisolone Sodium Succinate (Solu-Medrol) 40 mg IV Q12HR [facility] Last Admin: 05/23/19 20:22 Dose: 40 mg Documented by: Miscellaneous Information (Pneumonia Protocol Utilized) 1 each PO ONCE PRN PRN Reason: Per Protocol Naloxone HCl (Narcan) 0.2 mg IV Q2M PRN PRN Reason: Opioid Reversal Nicotine (Habitrol 21mg/24hr Patch) 1 patch TRANSDERM DAILY [facility] Last Admin: 05/23/19 08:19 Dose: 1 patch Documented by: Buprenorphine Hcl [ (Subutex] 8 Mg) 8 mg SUBLINGUAL AC-TID [facility] Last Admin: 05/23/19 15:46 Dose: Not Given Documented by: Ondansetron HCl (Zofran) 4 mg IVP Q6HR PRN PRN Reason: Nausea And Vomiting Last Admin: 05/22/19 19:01 Dose: 4 mg Documented by: Pantoprazole Sodium (Protonix) 40 mg PO AC-BRKFST [facility] Physical examination: VITAL SIGNS: 98.4, 104, 22, 133/80, 96% on 3 L GENERAL: Sitting over a chair, awake EYES: Pupils equal. Conjunctiva pale HEENT: External appearance of nose and ears normal, oral cavity dry.endotracheal tube in place NECK: JVD unable to assess; masses not palpable. HEART: First and second heart sounds are normal; no edema. LUNGS: Respiratory rate increased, diminished breath sounds. right-sided chest tube in place ABDOMEN: Soft, nontender, liver spleen not palpable, no masses palpable. PSYCH: unable to assess as patient is intubated INVESTIGATIONS, reviewed in the clinical context: White count 18.3 hemoglobin 9.9 creatinine 0.47 Sputum growing Viridiana albicans other cultures pending CT chest on April 23-small loculated pleural effusion on the right, slightly larger pleural effusions left Previous investigations White count 28.5 hemoglobin 12.1 sodium 127 potassium 4.1. Creatinine 0.81 albumin 3.0 UA negative for leukoesterase and nitrites Chest x-ray film personally reviewed by me-shows dense consolidation of the right side with questionable fluid Computed tomography scan of the chest shows complex lobular take fluid collection in the right extending across the midline diffuse airspace disease in the right with bullous changes in the apex lobes no solid mass reported CT chest-multiple loculated right-sided pleural effusion are again noted. On the sliding interval improvement.. Interval development of coarse infiltrate for the left lung. Assessment: -Bilateral multilobar pneumonia with right parapneumonic effusion with loculated fluid, with sepsis, slow to respond -Right-sided chest tube placed, initially about 1100 mL of fluid obtained, status post alteplase -Acute hypoxic respiratory failure from above, status post ventilator support -Acute delirium with encephalopathy secondary to underlying sepsis, much improved -Acute COPD exacerbation in a current smoker, slow to respond -nicotine dependence patient's cigarette smoker -Idiopathic peripheral neuropathy -Bipolar disorder -Hyponatremia -Hypoalbuminemia could be an acute phase reactant Plan: Cultures are growing Viridiana. Chest tube remains in place. Patient remains on vancomycin and Zosyn and Levaquin. And Diflucan. Patient encouraged to use the IS
[2019-05-23] MEDS ORDERED: FLUCONAZOLE 100 MG TAB PO ONE (22:00)
--- NOTE | 2019-05-23 23:17 | P.PN ---
Subjective Progress Note Date: 05/23/19 54-year-old male who is a long-standing history of bipolar disorder schizophrenia and a closed head injury presents to the emergency center with increasing shortness of breath. It is noted that before his intubation the patient was a poor historian and he was concerned that he was having withdrawal from benzodiazepine therapy. At admission his chest x-ray was abnormal with a right pleural effusion and right lower lobe consolidation. He had evidence of fever and leukocytosis as well as pleuritic chest pain. He was tachycardic and was resuscitated and treated with antibiotic therapy of Zosyn and Levaquin. The patient's status has declined. He developed respiratory failure requiring i ntubation sedation and mechanical ventilation. He also had a chest tube applied to the right pleural effusion. His required vasopressor therapy that is also being titrated. His oxygenation is improved he is on a lower FiO2 but still a PEEP of 12. He is on propofol and very comfortable. 05/20/2018 the patient is remaining intubated sedated and mechanically ventilated. He is otherwise quite comfortable. We'll rule him for a follow-up computed tomography scan to evaluate his pulmonary status and pneumonia. His temperature was 1013 is now 98.2. 05/22/2019 patient is more comfortable today. He has had improvement of his status and is currently on CPAP with plans for extubation in the near future. He is currently quite comfortable with no acute complaint. He is afebrile and his writing on the pad of his desire to be extubated 05/23/2019 .He is now extubated and is comfortable. He is complaining of pain and requesting narcotic pain medications although he is on eversion of Suboxone. Other than this he relates it is improving. Some discomfort in the chest tube site. Shortness of breath is improved. No further fevers or chills. Shortness of breath is improved. He is eating without any difficulty, no nausea or emesis Objective - Vital Signs Vital signs: Vital Signs Temp 98.4 F 05/23/19 20:00 Pulse 97 05/23/19 22:00 Resp 19 05/23/19 22:00 BP 110/64 05/23/19 22:00 Pulse Ox 96 05/23/19 22:00 Intake & Output 05/23/19 05/23/19 05/24/19 06:59 18:59 06:59 Intake Total 2520 1550 860 Output Total 1100 3060 225 Balance 1420 -1510 635 Weight 76.1 kg 76.1 kg Intake: IV 1800 1550 500 Lactated Ringers 1,000 ml 1200 850 150 @ 50 mls/hr IV .Q20H [facility] Rx#:[id number] Levofloxacin 750Mg-D5w 150 100 Pmx 750 mg In Dextrose/ Water 1 150ml.bag @ 100 mls/hr IVPB Q24H [facility] Rx#: [id number] Piperacillin-Tazobactam 3 200 200 .375 gm In Sodium Chloride 0.9% 100 ml @ 25 mls/hr IVPB Q8HR [facility] Rx# :[id number] Vancomycin 1,500 mg In 250 500 250 Sodium Chloride 0.9% 250 ml @ 125 mls/hr IVPB Q8H [facility] Rx#:[id number] Oral 720 360 Output: Chest Tube Drainage 150 650 Chest Tube Right Lateral 150 650 Chest Urine 950 2410 225 Other: Voiding Method Indwelling Catheter Indwelling Catheter Indwelling Catheter # Bowel Movements 1 ABP, PAP, CO, CI - Last Documented Arterial Blood Pressure 131/66 - Exam 54 -year-old male extubated comfortable sitting upright and eating HEENT: Anicteric conjunctiva are pink and moist nasal mucosa grossly intact without significant lesions, there is no thrush Around the endotracheal tube, he is edentulous Neck: The neck is supple without significant lymphadenopathy or thyromegaly. Lungs:Symmetrical bilateral air entry decreased breath sounds at bilateral bases bronchial sounds right base Heart: Regular rate and rhythm with an audible S1-S2, no S3 no S4. There is no significant murmur click or rub, PMI was nondisplaced. Abdomen: Positive bowel sounds soft and nontender without palpable masses or organomegaly. There was no guarding or rebound. Extremities: The upper extremities have excellent pulses they are symmetric, no significant petechiae or telangiectasia. No splinter hemorrhages were noted. The lower extremities are free from significant edema. The peripheral pulses were 2+ and symmetric. Neuro: Awake alert oriented person place and time - Labs CBC & Chem 7: 05/23/19 05:30 05/23/19 05:30 Labs: Abnormal Lab Results - Last 24 Hours (Table) 05/23/19 05/23/19 05/23/19 Range/Units 05:30 05:30 06:54 WBC 18.3 H (3.8-10.6) k/uL RBC 3.21 L (4.30-5.90) m/uL Hgb 9.9 L (13.0-17.5) gm/dL Hct 31.6 L (39.0-53.0) % Plt Count 529 H (150-450) k/uL Carbon Dioxide 35 H (22-30) mmol/L Creatinine 0.47 L (0.66-1.25) mg/dL Glucose 113 H (74-99) mg/dL POC Glucose (mg/dL) 100 H (75-99) mg/dL Calcium 7.7 L (8.4-10.2) mg/dL 05/23/19 05/23/19 05/23/19 Range/Units 11:49 17:29 20:58 WBC (3.8-10.6) k/uL RBC (4.30-5.90) m/uL Hgb (13.0-17.5) gm/dL Hct (39.0-53.0) % Plt Count (150-450) k/uL Carbon Dioxide (22-30) mmol/L Creatinine (0.66-1.25) mg/dL Glucose (74-99) mg/dL POC Glucose (mg/dL) 149 H 146 H 169 H (75-99) mg/dL Calcium (8.4-10.2) mg/dL Microbiology - Last 24 Hours (Table) 05/21/19 14:32 Gram Stain - Preliminary Bronchial Washings - Right Bronchial Washings Culture - Preliminary Viridiana albicans Yeast species 05/19/19 12:20 Gram Stain - Final Pleural Fluid Body Fluid Culture - Final 05/16/19 18:43 Blood Culture - Final Blood No Growth after 144 hours 05/21/19 14:32 Acid Fast Bacilli Smear - Final Bronchoalviolar Lavage - Right Acid Fast Bacilli Culture - Preliminary Laboratory Results WBC 18.3 k/uL (3.8-10.6) H 05/23/19 05:30 RBC 3.21 m/uL (4.30-5.90) L 05/23/19 05:30 Hgb 9.9 gm/dL (13.0-17.5) L 05/23/19 05:30 Hct 31.6 % (39.0-53.0) L 05/23/19 05:30 MCV 98.4 fL (80.0-100.0) 05/23/19 05:30 MCH 30.9 pg (25.0-35.0) 05/23/19 05:30 MCHC 31.4 g/dL (31.0-37.0) 05/23/19 05:30 RDW 14.7 % (11.5-15.5) 05/23/19 05:30 Plt Count 529 k/uL (150-450) H 05/23/19 05:30 Neutrophils % 92 % 05/20/19 05:10 Neutrophils % (Manual) 91 % 05/19/19 04:30 Lymphocytes % 3 % 05/20/19 05:10 Lymphocytes % (Manual) 2 % 05/19/19 04:30 Monocytes % 5 % 05/20/19 05:10 Monocytes % (Manual) 7 % 05/19/19 04:30 Eosinophils % 0 % 05/20/19 05:10 Basophils % 0 % 05/20/19 05:10 Neutrophils # 21.3 k/uL (1.3-7.7) H 05/20/19 05:10 Neutrophils # (Manual) 31.85 k/uL (1.3-7.7) H 05/19/19 04:30 Lymphocytes # 0.6 k/uL (1.0-4.8) L 05/20/19 05:10 Lymphocytes # (Manual) 0.70 k/uL (1.0-4.8) L 05/19/19 04:30 Monocytes # 1.1 k/uL (0-1.0) H 05/20/19 05:10 Monocytes # (Manual) 2.45 k/uL (0-1.0) H 05/19/19 04:30 Eosinophils # 0.0 k/uL (0-0.7) 05/20/19 05:10 Basophils # 0.1 k/uL (0-0.2) 05/20/19 05:10 Nucleated RBCs 0 /100 WBC (0-0) 05/19/19 04:30 Manual Slide Review Performed 05/19/19 04:30 Polychromasia Present 05/19/19 04:30 Macrocytosis Slight 05/22/19 06:10 Sample Site cutler 05/22/19 11:22 ABG pH 7.51 (7.35-7.45) H 05/22/19 11:22 ABG pCO2 43 mmHg (35-45) 05/22/19 11:22 ABG pO2 90 mmHg (83-108) 05/22/19 11:22 ABG HCO3 34 mmol/L (21-25) H 05/22/19 11:22 ABG Total CO2 36 mmol/L (19-24) H 05/22/19 11:22 ABG O2 Saturation 97.2 % (94-97) H 05/22/19 11:22 ABG Base Excess 11.4 mmol/L 05/22/19 11:22 Prashant Test na 05/22/19 11:22 FiO2 50 % 05/22/19 11:22 Sodium 137 mmol/L (137-145) 05/23/19 05:30 Potassium 4.7 mmol/L (3.5-5.1) 05/23/19 05:30 Chloride 101 mmol/L (98-107) 05/23/19 05:30 Carbon Dioxide 35 mmol/L (22-30) H 05/23/19 05:30 Anion Gap 1 mmol/L 05/23/19 05:30 BUN 17 mg/dL (9-20) 05/23/19 05:30 Creatinine 0.47 mg/dL (0.66-1.25) L 05/23/19 05:30 Est GFR (CKD-EPI)AfAm >90 (>60 ml/min/1.73 sqM) 05/23/19 05:30 Est GFR (CKD-EPI)NonAf >90 (>60 ml/min/1.73 sqM) 05/23/19 05:30 Glucose 113 mg/dL (74-99) H 05/23/19 05:30 POC Glucose (mg/dL) 169 mg/dL (75-99) H 05/23/19 20:58 POC Glu Hand Bulldozer ID Freddy Mcqueen 05/23/19 20:58 Plasma Lactic Acid Jared 1.1 mmol/L (0.7-2.0) 05/16/19 18:43 Calcium 7.7 mg/dL (8.4-10.2) L 05/23/19 05:30 Total Bilirubin 1.0 mg/dL (0.2-1.3) 05/16/19 18:43 AST 36 U/L (17-59) 05/16/19 18:43 ALT 33 U/L (21-72) 05/16/19 18:43 Alkaline Phosphatase 71 U/L (38-126) 05/16/19 18:43 Total Protein 6.4 g/dL (6.3-8.2) 05/16/19 18:43 Albumin 3.0 g/dL (3.5-5.0) L 05/16/19 18:43 Urine Color Yellow 05/19/19 12:20 Urine Appearance Clear (Clear) 05/19/19 12:20 Urine pH 6.5 (5.0-8.0) 05/19/19 12:20 Ur Specific Witt 1.038 (1.001-1.035) H 05/19/19 12:20 Urine Protein 1+ (Negative) H 05/19/19 12:20 Urine Glucose (UA) Negative (Negative) 05/19/19 12:20 Urine Ketones Negative (Negative) 05/19/19 12:20 Urine Blood Negative (Negative) 05/19/19 12:20 Urine Nitrite Negative (Negative) 05/19/19 12:20 Urine Bilirubin Negative (Negative) 05/19/19 12:20 Urine Urobilinogen <2.0 mg/dL (<2.0) 05/19/19 12:20 Ur Leukocyte Esterase Negative (Negative) 05/19/19 12:20 Urine RBC 5 /hpf (0-5) 05/19/19 12:20 Urine WBC 3 /hpf (0-5) 05/19/19 12:20 Ur Squamous Epith Cells <1 /hpf (0-4) 05/19/19 12:20 Urine Bacteria Rare /hpf (None) H 05/19/19 12:20 Hyaline Casts 101 /lpf (0-2) H 05/16/19 18:43 Urine Mucus Rare /hpf (None) H 05/19/19 12:20 Fluid Source Bronchial Wash 05/21/19 14:32 Fluid Color Colorless 05/21/19 14:32 Fluid Appearance Hazy 05/21/19 14:32 Fluid RBC 20 /uL 05/21/19 14:32 Fluid Nucleated Cells 330 /uL 05/21/19 14:32 Fluid Polynuclear WBCs 91 % 05/21/19 14:32 Fluid Mononuclear WBCs 9 % 05/21/19 14:32 Body Fluid Glucose Source Pleural Fluid 05/19/19 12:20 Fluid Glucose 31 mg/dL 05/19/19 12:20 Body Fluid Protein Source Pleural Fluid 05/19/19 12:20 Fluid Total Protein 3900 mg/dL 05/19/19 12:20 Body Fluid LDH Source Pleural Fluid 05/19/19 12:20 Fluid LDH 2122 U/L 05/19/19 12:20 Fluid Comment Few Mesothelial 05/19/19 12:20 Vancomycin Trough 16.1 ug/mL 05/23/19 05:30 Salicylates <1.0 mg/dL 05/16/19 18:43 Urine Opiates Screen Not Detected (NotDetected) 05/16/19 18:43 Ur Oxycodone Screen Not Detected (NotDetected) 05/16/19 18:43 Urine Methadone Screen Not Detected (NotDetected) 05/16/19 18:43 Ur Propoxyphene Screen Not Detected (NotDetected) 05/16/19 18:43 Acetaminophen <10.0 ug/mL 05/16/19 18:43 Ur Barbiturates Screen Not Detected (NotDetected) 05/16/19 18:43 U Tricyclic Antidepress Detected (NotDetected) H 05/16/19 18:43 Ur Phencyclidine Scrn Not Detected (NotDetected) 05/16/19 18:43 Ur Amphetamines Screen Not Detected (NotDetected) 05/16/19 18:43 U Methamphetamines Scrn Not Detected (NotDetected) 05/16/19 18:43 U Benzodiazepines Scrn Detected (NotDetected) H 05/16/19 18:43 Urine Cocaine Screen Not Detected (NotDetected) 05/16/19 18:43 U Marijuana (THC) Screen Not Detected (NotDetected) 05/16/19 18:43 Serum Alcohol <10 mg/dL 05/16/19 18:43 Influenza Type A RNA Not Detected (Not Detectd) 05/16/19 18:43 Influenza Type B (PCR) Not Detected (Not Detectd) 05/16/19 18:43 Virus Source See Below 05/21/19 14:32 Viral Test See Below 05/21/19 14:32 Virus Analysis Interp See Below 05/21/19 14:32 Microbiology 05/21/19 14:32 Bronchial Washings - Right Gram Stain - Preliminary 05/21/19 14:32 Bronchial Washings - Right Bronchial Washings Culture - Preliminary Viridiana albicans Yeast species 05/19/19 12:20 Pleural Fluid Gram Stain - Final 05/19/19 12:20 Pleural Fluid Body Fluid Culture - Final 05/16/19 18:43 Blood Blood Culture - Final No Growth after 144 hours 05/21/19 14:32 Bronchoalviolar Lavage - Right Acid Fast Bacilli Smear - Final 05/21/19 14:32 Bronchoalviolar Lavage - Right Acid Fast Bacilli Culture - Preliminary 05/21/19 14:32 Bronchoalviolar Lavage - Right Fungal Culture - Preliminary 05/19/19 00:25 Sputum Gram Stain - Final 05/19/19 00:25 Sputum Sputum Culture - Final Viridiana albicans 05/19/19 12:20 Pleural Fluid Acid Fast Bacilli Smear - Final 05/19/19 12:20 Pleural Fluid Acid Fast Bacilli Culture - Preliminary 05/19/19 12:20 Pleural Fluid Fungal Culture - Preliminary Assessment and Plan (1) Community acquired bacterial pneumonia Narrative/Plan: 54-year-old male it is a complex past medical history with his underlying mental illness and history of head trauma with significant compromise status. Presents to hospital with significant shortness of breath but evidence of the extensive pleural effusion to the right chest and the pneumonia. Chest tube is in place and is receiving appropriate antibiotic therapy this time with Zosyn and Levaquin with his intensive care unit stay and concerns for potential gram-negative pneumonia as well as aspiration. Pleural fluid has been sent as a sputum culture to further help direct antibiotic therapy. The patient has had some improvement of his status with decreasing oxygen requirements throughout the day but still remains on PEEP of 12. Hemodynamically he is stable to [facility] requiring less vasopressor therapy. Adequate urinary output is noted. He has an extensive leukocytosis directly related to his extensive pneumonia and possible empyema. 05/20/2019 the patient is requiring ongoing mechanical ventilation. Cultures are pending from his sputum as well as the drainage from the pleural effusion. Continue current antibiotic therapy. Continue with supportive care. Is noted his PEEP did decrease. Vasopressor therapy. Cultures to further help direct antibiotic therapy. 05/22/2019 the patient is having improvement will likely be extubated today. He is doing well on current antibiotic therapy off of vasopressor therapy and improving pulmonary status. Cultures are pending responding well to current antibiotic therapy cultures will further direct The time of discharge AFB negative so far fungal culture negative so far. 05/23/2019 the patient has had significant improvement that he is now extubated sitting upright eating well and having very little shortness of breath. He is having some pain from the chest tube site other than that he is doing quite w ell. The culture data is negative so far with no evidence of any significant fungal or acid-fast bacilli antibiotic therapy as he improves will be further directed his cultures become available. Current Visit: Yes Status: Acute Code(s): J15.9 - UNSPECIFIED BACTERIAL PNEUMONIA SNOMED Code(s): 524104295 (2) Acute respiratory failure with hypoxia and hypercapnia Current Visit: Yes Status: Acute Code(s): J96.01 - ACUTE RESPIRATORY FAILURE WITH HYPOXIA; J96.02 - ACUTE RESPIRATORY FAILURE WITH HYPERCAPNIA SNOMED Code(s): 087660232 (3) Leukocytosis Current Visit: Yes Status: Acute Code(s): D72.829 - ELEVATED WHITE BLOOD CELL COUNT, UNSPECIFIED SNOMED Code(s): 631776092
[2019-05-24] MEDS: HYDROcodone/APAP 5-325MG 1 EACH TAB PO PRN ×5 (00:15→23:56)
[2019-05-24] MEDS: KETOROLAC 30 MG/ML 1 ML VIAL IVP SCH ×5 (00:16→21:08)
[2019-05-24] MEDS: PIPERACILLIN-TAZOBACTAM 3.375 GM in SODIUM CHLORIDE 0.9% 100 ML IVPB SCH ×4 (00:17→23:58)
[2019-05-24] MEDS: LORazepam 2 MG/ML INJ IV PRN ×5 (00:18→23:56)
--- NOTE | 2019-05-24 06:17 | XR ---
EXAMINATION TYPE: XR chest 1V portable DATE OF EXAM: 05/24/2019 HISTORY: Tube placement. REFERENCE: Previous study dated 05/23/2019. FINDINGS: The right pleural drain remains in place, unchanged in appearance. A right subclavian ramez ter is in place. Tip is at the cavoatrial junction. There is a questionable tiny right apical pneumot horax. There is a rounded opacity at the right lung base, unchanged from previous. There is a right-sided ef fusion and a smaller left-sided effusion. Pulmonary vasculature has improved. Some interstitial avelar e remains on the left as well as on the right. The heart is not enlarged. IMPRESSION: 1. QUESTIONABLE, SMALL RIGHT APICAL PNEUMOTHORAX. 2. BILATERAL EFFUSIONS, GREATER ON THE RIGHT LEFT. 3. ROUNDED OPACITY RIGHT LUNG BASE, UNCHANGED FROM PREVIOUS. 4. CONTINUING INTERSTITIAL CHANGE, IMPROVED FROM PREVIOUS.
[2019-05-24 06:24] LABS: HCT 33.6 % (39.0-53.0); HGB 10.8 gm/dL (13.0-17.5); MCH 31.2 pg (25.0-35.0); MCHC 32.2 g/dL (31.0-37.0); MCV 97.1 fL (80.0-100.0); Mean Platelet Volume 6.3; Platelet Count 554 k/uL (150-450); RBC 3.46 m/uL (4.30-5.90); RDW 14.6 % (11.5-15.5); WBC 19.7 k/uL (3.8-10.6)
[2019-05-24] MEDS: Buprenorphine Hcl [Subutex] 8 MG SUBLINGUAL SCH ×3 (06:24→17:49)
[2019-05-24 06:29] LABS: Glucose,Whole Blood 132 mg/dL (75-99)
[2019-05-24] MEDS: LURASIDONE 20 MG TAB PO SCH ×2 (06:34→17:53)
[2019-05-24] MEDS: PANTOPRAZOLE 40 MG TABLET PO SCH (06:34)
[2019-05-24] MEDS: INSULIN ASPART (NovoLOG) 100 UNIT/ML VIAL SQ SCH ×4 (06:38→20:08)
[2019-05-24 06:43] LABS: African American GFR (CKD) >90 (>60 ml/min/1.73 sqM); Anion Gap 3 mmol/L; Blood Urea Nitrogen 13 mg/dL (9-20); Carbon Dioxide 30 mmol/L (22-30); Chloride 103 mmol/L (98-107); Glucose 164 mg/dL (74-99); Potassium 4.3 mmol/L (3.5-5.1); Sodium 136 mmol/L (137-145)
[2019-05-24] MEDS: VANCOMYCIN 1,500 MG in SODIUM CHLORIDE 0.9% 250 ML IVPB SCH ×3 (06:48→22:19)
[2019-05-24] MEDS: IPRATROPIUM-ALBUTEROL 3 ML NEB INHALATION SCH ×4 (08:30→19:18)
[2019-05-24] MEDS ORDERED: ALTEPLASE 10 MG in SODIUM CHLORIDE 0.9% 100 ML IRRIGATION ONE (09:00)
[2019-05-24] MEDS: methylPREDNISolone SOD SUCCI 40 MG/ML 1 ML VIAL IV SCH (09:13)
[2019-05-24] MEDS: FLUCONAZOLE 100 MG TAB PO SCH (09:13)
[2019-05-24] MEDS: amLODIPine 5 MG TAB PO SCH (09:13)
[2019-05-24] MEDS: ARIPiprazole 10 MG TAB PO SCH (09:13)
[2019-05-24] MEDS: ENOXAPARIN 40 MG/0.4 ML SYRINGE SQ SCH (09:13)
[2019-05-24] MEDS: busPIRone HCl 10 MG TAB PO SCH ×2 (09:24→21:22)
[2019-05-24] MEDS: GABAPENTIN 300 MG CAP PO SCH ×3 (09:24→21:23)
[2019-05-24] MEDS: NICOTINE 21MG/24HR PATCH TRANSDERM SCH (09:27)
[2019-05-24] MEDS: NOREPINEPHRINE 32 MG in SODIUM CHLORIDE 0.9% 218 ML IV SCH (10:38)
[2019-05-24] MEDS: predniSONE 10 MG TAB PO SCH ×2 (11:02→21:22)
--- NOTE | 2019-05-24 11:12 | P.PN ---
Subjective Progress Note Date: 05/24/19 Principal diagnosis: Community-acquired bacterial pneumonia, acute respiratory failure with hypoxia and hypercapnia, leukocytosis. Past medical history significant for chronic obstructive pulmonary disease, chronic and ongoing tobacco dependence, history of closed head injury, bipolar disorder, paranoid schizophrenia, narcotic and illicit drug use. Status post day #3 bronchoscopy and bronchoalveolar lavage of the right lower lobe, bronchial alveolar lavage of the left lower lobe and lingula and suctioning of mucous plugging in both lower lobes performed by Dr. Harris. Status post day #5 intubation with mechanical ventilator support, subsequently extubated on 05/22/2018 at 12:17 PM. Right thoracostomy chest tube placement placed by Dr. Rai. Right subclavian triple-lumen central line placement by Dr. Rai. The patient is resting in bed in the intensive care unit. He is in no acute distress. He currently denies any complaints of pain or shortness of breath. He remains on 3 L nasal cannula with oxygen saturations 99%. He is achieving 1500 mL on his incentive spirometry with encouragement. He remains hemodynamically stable and is currently on no inotropic or pressor support. He has been afebrile in the last 24 hours. His lab results this morning show a WBC count 19.7, hemoglobin 10.8, platelets 554, BUN 13, and creatinine 0.48. He is alert and oriented 3. He remains with a right pleural chest tube in place to low continuous wall suction -20 cm H2O. No air leak is present. Draining thin serous with thick whitish sediment drainage. 500 mL output in the last 24 hours. There is some purulent colored drainage coming from around his chest tube insertion site. He has received 3 doses of alteplase 10 mg/100 mL of normal saline over the last 3 days. Bedside telemetry showing normal sinus rhythm heart rate 96 and current blood pressure is 134/78. He has a right subclavian triple-lumen in place and is functioning. Objective - Vital Signs Vital signs: Vital Signs Temp 98.6 F 05/24/19 08:00 Pulse 98 05/24/19 10:00 Resp 19 05/24/19 10:00 BP 127/79 05/24/19 10:00 Pulse Ox 98 05/24/19 10:00 Intake & Output 05/23/19 05/24/19 05/24/19 18:59 06:59 18:59 Intake Total 1550 2100 200 Output Total 3060 2175 800 Balance -1510 -75 -600 Weight 76.1 kg 77.1 kg Intake: IV 1550 1300 200 Lactated Ringers 1,000 ml 850 600 100 @ 50 mls/hr IV .Q20H [facility] Rx#:[id number] Levofloxacin 750Mg-D5w 100 Pmx 750 mg In Dextrose/ Water 1 150ml.bag @ 100 mls/hr IVPB Q24H [facility] Rx#: [id number] Piperacillin-Tazobactam 3 200 100 100 .375 gm In Sodium Chloride 0.9% 100 ml @ 25 mls/hr IVPB Q8HR [facility] Rx# :[id number] Vancomycin 1,500 mg In 500 500 Sodium Chloride 0.9% 250 ml @ 125 mls/hr IVPB Q8H [facility] Rx#:[id number] Intake, IV Titration 0 Amount Norepinephrine 32 mg In 0 Sodium Chloride 0.9% 218 ml @ 0.07 MCG/KG/MIN 2. 136 mls/hr IV .Q24H [facility] Rx#:[id number] Oral 800 Output: Chest Tube Drainage 650 300 Chest Tube Right Lateral 650 300 Chest Urine 2410 1875 800 Other: Voiding Method Indwelling Catheter Indwelling Catheter Indwelling Catheter ABP, PAP, CO, CI - Last Documented Arterial Blood Pressure 159/64 - Constitutional General appearance: Present: cooperative, no acute distress, thin - Respiratory Details: Lungs sounds essentially clear throughout, diminished to his bilateral bases. Respirations are symmetrical and nonlabored. Oxygen saturation 99% on 3 L nasal cannula. Achieving 1500 mL on his incentive spirometry. Right pleural chest tube remains in place low continuous wall suction -20 cm H2O. No air leak is present. Draining thin serous drainage with white thick sediment. 500 mL output in the last 24 hours. - Cardiovascular Details: Regular rhythm and rate. S1 and S2 present, negative for S3, gallop or murmur. Bedside telemetry showing normal sinus rhythm heart rate 96. Knee-high sequential compression devices in place to his bilateral lower symptoms. - Gastrointestinal Gastrointestinal Comment(s): Abdomen is soft, nontender and nondistended. Active bowel sounds present in all 4 abdominal quadrants. No guarding or rigidity. No organomegaly appreciated. - Genitourinary Genitourinary Comment(s): Cespedes catheter for accurate I&O. Draining clear yellow urine. - Integumentary Integumentary Comment(s): Skin is warm and dry. No clubbing or cyanosis present. No rash or abnormal pigmentation is present. Right chest tube dressing is clean dry and intact. - Neurologic Neurologic Comment(s): No focal deficits. Neurologic: Present: CNII-XII intact - Musculoskeletal Musculoskeletal: Present: generalized weakness, strength equal bilaterally - Psychiatric Psychiatric: Present: A&O x's 3, appropriate affect, intact judgment & insight - Allied health notes Allied health notes reviewed: nursing - Labs CBC & Chem 7: 05/24/19 06:00 05/24/19 06:00 Labs: Abnormal Lab Results - Last 24 Hours (Table) 05/23/19 05/23/19 05/23/19 Range/Units 11:49 17:29 20:58 WBC (3.8-10.6) k/uL RBC (4.30-5.90) m/uL Hgb (13.0-17.5) gm/dL Hct (39.0-53.0) % Plt Count (150-450) k/uL Sodium (137-145) mmol/L Creatinine (0.66-1.25) mg/dL Glucose (74-99) mg/dL POC Glucose (mg/dL) 149 H 146 H 169 H (75-99) mg/dL Calcium (8.4-10.2) mg/dL 05/24/19 05/24/19 05/24/19 Range/Units 06:00 06:00 06:26 WBC 19.7 H (3.8-10.6) k/uL RBC 3.46 L (4.30-5.90) m/uL Hgb 10.8 L (13.0-17.5) gm/dL Hct 33.6 L (39.0-53.0) % Plt Count 554 H (150-450) k/uL Sodium 136 L (137-145) mmol/L Creatinine 0.48 L (0.66-1.25) mg/dL Glucose 164 H (74-99) mg/dL POC Glucose (mg/dL) 132 H (75-99) mg/dL Calcium 8.0 L (8.4-10.2) mg/dL Microbiology - Last 24 Hours (Table) 05/21/19 14:32 Gram Stain - Final Bronchial Washings - Right Bronchial Washings Culture - Final Viridiana albicans Viridiana glabrata 05/19/19 12:20 Gram Stain - Final Pleural Fluid Body Fluid Culture - Final - Imaging and Cardiology Chest x-ray: report reviewed, image reviewed Assessment and Plan Assessment: 1. Hypoxic respiratory failure, post intubation mechanical ventilation 2. Right loculated pleural effusion, status post right-sided chest tube placement 3. Sepsis secondary to multilobar community-acquired pneumonia 4. Leukocytosis, secondary to above 5. Hypotension requiring norepinephrine support 6. Chronic and ongoing tobacco dependence 7. Chronic obstructive pulmonary disease 8. Paranoid schizophrenia 9. Bipolar disorder 10. History of closed head injury 11. History of compartment syndrome of the left lower extremity Plan: 1. Keep right-sided pleural chest tube to low continuous wall suction -20 cm H2O. continue to record accurate I&O. 2. Bronchodilators and corticosteroids management per pulmonary and critical care management. 3. Antibiotic management per infectious disease recommendations. 4. Continue to monitor daily labs and chest x-rays. 5. DVT and GI prophylaxis. 6. Medical management and other comorbidities management per primary care service. 7. Nutrition management per dietitian's recommendations. 8. Alteplase 10 mg/100 mL of normal saline 1 today. 9. Bronchial washings culture show few Viridiana albicans. 10. Discontinue Cespedes catheter. 11. Encourage use of his incentive spirometry every hour while awake. 12. More recommendations to follow based on patient's clinical course. Time with Patient: Greater than 30
[2019-05-24 11:53] LABS: Glucose,Whole Blood 114 mg/dL (75-99)
--- NOTE | 2019-05-24 13:40 | P.PN ---
Subjective Progress Note Date: 05/24/19 Principal diagnosis: Acute hypoxic respiratory failure secondary to multilobar pneumonia and right- sided loculated pleural effusion. This is a 54-year-old gentleman who follows with Dr. Srinivasan as his primary care physician. He has a history of bipolar disorder, closed head injury, schizophrenia, compartment syndrome of the left lower extremity, COPD, chronic and ongoing tobacco dependence. He presented to the emergency room yesterday with altered mental status and fever. The patient himself is a poor historian. He was refusing to give much information. He did feel as though he was withdrawing from benzodiazepines. Urine drug screen was positive for tricyclic antidepressants and benzodiazepines. Chest x-ray showed a new right pleural effusion and right lower lobe consolidation. White count 28.5. Hemoglobin 12.1. Creatinine 0.81. Influenza screen negative. Initial temp 101.1. He is admitted for suspected pneumonia. He is seen today in consultation on the regular medical floor. He is currently awake. He is a poor historian. Unable to give much information. Does complain of right sided chest p ain and pain with inhalation and coughing. He's maintaining O2 saturation in the low 90s on 2 L/m per nasal cannula. He's been afebrile. Somewhat tac hycardic. His been initiated on Zosyn and Levaquin. Lactated Ringer's at 125 ML's per hour. On 05/18/2019 the patient is doing well stable and is hemodynamic stable and afebrile. Still on today's of oxygen by nasal cannula pulse ox is 93%. CAT scan results were noted. Consult was placed for interventional radiology regarding a percutaneous predicted catheter insertion. The patient remains on a combination of antibiotics including Zosyn and Levaquin and vancomycin. The blood cultures negative. Reevaluated today on 05/19/2019, patient was already seen earlier by Dr. Rai, and he placed a right sided chest tube for his worsening right-sided pleural effusion. Patient is now on mechanical ventilation with assist control rate of 20 FiO2 of 50% PEEP of 12 tidal volume of 500. ABG this morning showed a pO2 of 83 pCO2 of 51 pH of 7.38 patient was earlier on 100% FiO2 and high PEEP prior to placement of the chest tube. Over 1500 mL of serosanguineous fluid removed from the right pleural space, results on the fluid are pending. Patient's brother is at bedside, and I updated the brother on his condition. Patient is hemodynamically stable, he is also on propofol, not requiring any pressors at this point. I was able to cut down the FiO2 to 50%, and kept him on a PEEP of 12. His peak airway pressure is in the high 20s, plateau pressure is 23 Patient was reevaluated today on 05/20/2019, remains in the ICU on mechanical ventilation. His ventilator settings are assist control rate of 20 FiO2 is 50% tidal volume is 500 PEEP is down to 8 and set of 12. Patient is off norep inephrine, remains on propofol at 60 mcg/kg/m. His peak airway pressure is in the high 20s plateau pressure is 18. His chest x-ray continues to show areas of loculated effusion, and this was confirmed further by doing a CT of the chest today clearly showed multiple areas of loculation and bilateral pneumonia. The fluid from the chest tube is clearly exudative in nature, with relatively low glucose, it could be malignant or could be infectious, I believe it is mostly infectious rather than malignant. Considering the abnormal CT of the chest, the patient may require thoracotomy and decortication otherwise I doubt that the patient will make dramatic improvement as long as we have ongoing loculated effusion. Thoracic surgery is aware of the condition, may have to approach his brother regarding surgical intervention since the patient refused surgery when he presented initially to the hospital. ABG this morning showed a pO2 of 120 pCO2 of 46 pH of 7.45. Electrodes are normal renal profile is normal WBC count is 23.2 hemoglobin is 10. Microbiology remains negative, blood cultures are negative, Gram stain on the pleural effusion showed no organisms. Patient remains sedated, hemodynamically stable, urine output is decent and acceptable. Reevaluated today on 05/21/2019, remains on mechanical ventilation, in the intensive care unit. Patient is sedated, on fall mostly. His ventilator settings are unchanged, tidal volume of 500 assist control rate of 20 FiO2 is 50% PEEP is 8. ABG today showed a pO2 of 99 pCO2 of 44 pH of 7.48. Cultures from the pleural effusion remain negative. WBC count 13.8 hemoglobin is 9.2 lites are normal renal profile is normal. Patient is hemodynamically stable, not requiring any pressors at present. He is on propofol at 60 mcg/kg/m. IV fluid is at 100 mL/h. And he remains on antibiotics in the form of Zosyn and vancomycin. These are given empirically. No specific positive culture has been noted, hence I plan to bronchoscope the patient today and lavage his right lung. Patient was seen by thoracic surgery, considering decortication, but in the meantime trying thrombolytic therapy via chest tube. Reevaluated today again on 05/22/2019, patient remains in the ICU, mechanically ventilated. His ventilator settings are assist control rate of 20 tidal volume of 500 FiO2 of 50%, and PEEP was cut down to 5. Patient remains on propofol at 45 mcg/kg/m, he is also on norepinephrine at 2 mcg/m. Patient is sedated, however my plan today is to hold sedation, and address weaning parameters and possibly weaning trials of possible. Patient will likely be switched to a pressure support of 8 and CPAP, and if he does well on this, may consider weaning and extubation. Labs today were reviewed ABG showed a pO2 of 112 pCO2 44 pH of 7.49 electrolytes and renal profile are normal WBC count is 16.3 hemoglobin is 9.5. Chest x-ray is showing significant improvement compared to previous x-rays, infiltrates in both lungs are improving, but he continues to have areas of loculated pleural effusion on the right side. Chest tube remains in place, and purulent material is being drained, cultures remain negative from the pleural effusion and the cultures are still negative from the BAL. Remains on Levaquin and Zosyn and vancomycin Reevaluated today on 05/23/2019, patient was extubated yesterday, he is presently off mechanical ventilation, and he tolerated the extubation well. He is presently on 6 L nasal cannula. Patient is in no distress, arousable, follows simple instructions, did not sleep much last night, he seems to be a bit sleepy this morning. Overall the patient continues to have significant and steady improvement. Continues to have purulent drainage from the right-sided chest tube. Cultures remained negative, patient remains on broad-spectrum antibiotics, repeat CT of the chest this morning showed small loculated pleural effusions on the right, small left-sided pleural effusion which is new and not loculated. Continues to have leukocytosis with WBC count of 18.3 hemoglobin is 9.9 electrodes are normal renal profile is normal. Reevaluated today on 05/24/2019, patient was extubated 2 days ago, continues to tolerate extubation successfully. Continues to have chest tube in place, significant purulent drainage is noted after thrombolytic injections in the chest tube. Chest x-ray continues to show some areas of loculation, plan to repeat his CT of the chest on Sunday. In the meantime we plan to continue his antibiotics, possibly discontinue his Cespedes catheter, and over the next 2 days possibly transfer the patient out of the ICU to a regular medical floor. Patient is feeling much better, breathing a lot easier, he is on few liters nasal cannula. Continues to have leukocytosis, and that is not unexpected considering his loculated right-sided pleural effusion. Renal functioning is normal electrodes are normal hemoglobin is 10.8. Chest x-ray was reviewed and discussed with the patient. Objective - Vital Signs Vital signs: Vital Signs Temp 97.6 F 05/24/19 12:00 Pulse 99 05/24/19 13:00 Resp 22 05/24/19 13:00 BP 141/91 05/24/19 13:00 Pulse Ox 98 05/24/19 13:00 Intake & Output 05/23/19 05/24/19 05/24/19 18:59 06:59 18:59 Intake Total 1550 2100 350 Output Total 3060 2175 2250 Balance -1510 -75 -1900 Weight 76.1 kg 77.1 kg Intake: IV 1550 1300 350 Lactated Ringers 1,000 ml 850 600 250 @ 50 mls/hr IV .Q20H [facility] Rx#:[id number] Levofloxacin 750Mg-D5w 100 Pmx 750 mg In Dextrose/ Water 1 150ml.bag @ 100 mls/hr IVPB Q24H [facility] Rx#: [id number] Piperacillin-Tazobactam 3 200 100 100 .375 gm In Sodium Chloride 0.9% 100 ml @ 25 mls/hr IVPB Q8HR [facility] Rx# :[id number] Vancomycin 1,500 mg In 500 500 Sodium Chloride 0.9% 250 ml @ 125 mls/hr IVPB Q8H [facility] Rx#:[id number] Intake, IV Titration 0 Amount Norepinephrine 32 mg In 0 Sodium Chloride 0.9% 218 ml @ 0.07 MCG/KG/MIN 2. 136 mls/hr IV .Q24H [facility] Rx#:[id number] Oral 800 Output: Chest Tube Drainage 650 300 Chest Tube Right Lateral 650 300 Chest Urine 2410 1875 2250 Other: Voiding Method Indwelling Catheter Indwelling Catheter Indwelling Catheter ABP, PAP, CO, CI - Last Documented Arterial Blood Pressure 148/66 - Exam Physical Exam: 54-year-old on few liters nasal cannula, in no distress.. Very pleasant. Head: Atraumatic, normocephalic. HEENT:[Neck is supple.] [No neck masses.] [No thyromegaly.] [No JVD.] Moist mucous membranes, Chest: [Symmetrical chest expansion, right-sided chest tube is noted, crackles at the bases, no rhonchi, no wheezes.] Cardiac Exam: [Normal S1 and S2, no S3 gallop, no murmur.] Abdomen: [Soft, nontender, no megaly, no rebound, no guarding, normal bowel sounds.] Extremities: [No clubbing, no edema, no cyanosis.] Neurological Exam: Alert, oriented 3, no gross focal neurologic deficits. Psychiatric: Depressed mood, blunt affect, normal mental status examination. Skin: No rashes. - Labs CBC & Chem 7: 05/24/19 06:00 05/24/19 06:00 Labs: Abnormal Lab Results - Last 24 Hours (Table) 05/23/19 05/23/19 05/24/19 Range/Units 17:29 20:58 06:00 WBC (3.8-10.6) k/uL RBC (4.30-5.90) m/uL Hgb (13.0-17.5) gm/dL Hct (39.0-53.0) % Plt Count (150-450) k/uL Sodium 136 L (137-145) mmol/L Creatinine 0.48 L (0.66-1.25) mg/dL Glucose 164 H (74-99) mg/dL POC Glucose (mg/dL) 146 H 169 H (75-99) mg/dL Calcium 8.0 L (8.4-10.2) mg/dL 05/24/19 05/24/19 05/24/19 Range/Units 06:00 06:26 11:50 WBC 19.7 H (3.8-10.6) k/uL RBC 3.46 L (4.30-5.90) m/uL Hgb 10.8 L (13.0-17.5) gm/dL Hct 33.6 L (39.0-53.0) % Plt Count 554 H (150-450) k/uL Sodium (137-145) mmol/L Creatinine (0.66-1.25) mg/dL Glucose (74-99) mg/dL POC Glucose (mg/dL) 132 H 114 H (75-99) mg/dL Calcium (8.4-10.2) mg/dL Microbiology - Last 24 Hours (Table) 05/21/19 14:32 Gram Stain - Final Bronchial Washings - Right Bronchial Washings Culture - Final Viridiana albicans Viridiana glabrata Assessment and Plan Assessment: Impression: 1 acute hypoxic respiratory failure requiring intubation and mechanical ventilation. This is secondary to multilobar pneumonia and possible complicated right-sided pleural effusion. Status post tube thoracostomy postoperative day #4, patient was successfully extubated on 05/22/2019, 2 sepsis secondary to pneumonia, and loculated pleural effusion may eventually require decortication. However the CT of the chest this morning seems to be improving, obviously the loculated pleural effusion is improving with thrombolytics given by thoracic surgery on the case. 3 history of multiple comorbidities including bipolar disorder, schizophrenia, and history of head injury 4 history of compartment syndrome of the left lower extremity 5 underlying COPD severity of which is unclear. 6 chronic and ongoing tobacco dependence syndrome. Recommendation: Continue right-sided chest tube on suction. Continue to record exact I's and O's. Continue antibiotics. Continue bronchodilators and steroids, prednisone was started instead of Solu- Medrol, and it will be 10 mg twice a day orally. Continue daily labs and x-rays. Continue GI and DVT prophylaxis. Advance diet as tolerated. Continue alteplase 10 mg per 100 mL of normal saline possibly daily until we see complete resolution of the loculation or may have to consider a pigtail catheter placement. This will be decided upon based on the CT of the chest in the next few days. Continue incentive spirometry We'll continue to follow. Time with Patient: Less than 30
--- NOTE | 2019-05-24 16:23 | P.PN ---
Progress Note - Text Progress Note Date: 05/24/19 Interval history: This is a 54-year-old patient of Dr. adnino from [place]. Unable to get much of history from the patient as he mumbles then he remains quite. I gather from the ER notes that he apparently is homeless 2. Patient's history include closed head injury bipolar neuropathy COPD. Patient is an active smoker at least 2 packs a day. He did present to the ER stating that he is withdrawing from benzodiazepines and he is out of the same. He does follow with Dr. Rivero from out of the [facility]. Patient is very congested chronic cough so tired and is not able to expectorate. Having fever and tachycardia when initially presented. Was started on IV antibiotics. Pulmonary was consulted. Patient just about wakes up to speak that goes back to sleep. Patient was diagnosed to have severe pneumonia, parapneumonic effusion, sepsis, suspected empyema delirium, COPD exacerbation. Cardiothoracic surgery was consulted with a view to chest tube/thoracotomy On May 19, Dr. Rai put in a chest tube. About 1100 mL of serosanguineous fluid was obtained. Patient intubated. Patient extubated on May 22. Today-ICU. Sitting up in a chair. More communicative. Family is visiting. Did tolerate some diet. Right chest wall chest tube attached to low suction. It was noticed that patient has marfanoid in appearance. Has a high arched palate. No hairline. Long span of upper extremity. Review of systems: Was done for constitutional, cardiovascular, GI, pulmonary. relevant finding as above Active Medications Acetaminophen (Tylenol Tab) 650 mg PO Q6HR PRN PRN Reason: Fever and/ or MILD Pain Last Admin: 05/18/19 17:12 Dose: 650 mg Documented by: Hydrocodone Bitart/Acetaminophen ([place] 5-325) 1 each PO Q6HR PRN PRN Reason: MODERATE Pain Last Admin: 05/24/19 11:47 Dose: 1 each Documented by: Albuterol/Ipratropium (Duoneb 0.5 Mg-3 Mg/3 Ml Soln) 3 ml INHALATION RT-QID [facility] Last Admin: 05/24/19 15:14 Dose: 3 ml Documented by: Amlodipine Besylate (Norvasc) 5 mg PO DAILY [facility] Last Admin: 05/24/19 09:13 Dose: 5 mg Documented by: Baclofen (Lioresal) 5 mg PO QID PRN PRN Reason: Muscle Spasm Last Admin: 05/21/19 20:54 Dose: 5 mg Documented by: Buspirone HCl (Buspar) 10 mg PO BID [facility] Last Admin: 05/24/19 09:24 Dose: 10 mg Documented by: Diazepam (Valium) 5 mg IVP Q4H PRN PRN Reason: Seizures Last Admin: 05/23/19 20:23 Dose: 5 mg Documented by: Doxepin HCl (Sinequan) 150 mg PO HS [facility] Last Admin: 05/23/19 22:58 Dose: 100 mg Documented by: Enoxaparin Sodium (Lovenox) 40 mg SQ DAILY [facility] Last Admin: 05/24/19 09:13 Dose: 40 mg Documented by: Fluconazole (Diflucan) 100 mg PO DAILY [facility] Last Admin: 05/24/19 09:13 Dose: 100 mg Documented by: Gabapentin (Neurontin) 600 mg PO TID [facility] Last Admin: 05/24/19 09:24 Dose: 600 mg Documented by: Levofloxacin 750 mg/ IV (Solution) 150 mls @ 100 mls/hr IVPB Q24H [facility] Stop: 05/29/19 19:31 Last Admin: 05/23/19 20:20 Dose: 100 mls/hr Documented by: Piperacillin Sod/Tazobactam (Sod 3.375 gm/ Sodium Chloride) 100 mls @ 25 mls/hr IVPB Q8HR [facility] Stop: 05/27/19 08:01 Last Admin: 05/24/19 09:13 Dose: 25 mls/hr Documented by: Lactated Ringer's (Lactated Ringers) 1,000 mls @ 50 mls/hr IV .Q20H [facility] Last Admin: 05/23/19 20:20 Dose: 50 mls/hr Documented by: Norepinephrine Bitartrate 32 (mg/ Sodium Chloride) 250 mls @ 2.136 mls/hr IV .Q24H [facility]; Protocol Last Admin: 05/24/19 10:38 Dose: Not Given Documented by: Vancomycin HCl 1,500 mg/ (Sodium Chloride) 250 mls @ 125 mls/hr IVPB Q8H [facility] Last Admin: 05/24/19 14:54 Dose: 125 mls/hr Documented by: Insulin Aspart (Novolog) 0 unit SQ ACHS [facility]; Protocol Last Admin: 05/24/19 11:51 Dose: Not Given Documented by: Ketorolac Tromethamine (Toradol) 15 mg IVP Q6HR [facility] Stop: 05/25/19 18:01 Last Admin: 05/24/19 14:38 Dose: 15 mg Documented by: Lorazepam (Ativan) 1 mg IV Q6HR PRN PRN Reason: Anxiety Last Admin: 05/24/19 12:11 Dose: 1 mg Documented by: Lurasidone HCl (Latuda) 20 mg PO BID-W/MEALS [facility] Last Admin: 05/24/19 06:34 Dose: 20 mg Documented by: Miscellaneous Information (Pneumonia Protocol Utilized) 1 each PO ONCE PRN PRN Reason: Per Protocol Naloxone HCl (Narcan) 0.2 mg IV Q2M PRN PRN Reason: Opioid Reversal Nicotine (Habitrol 21mg/24hr Patch) 1 patch TRANSDERM DAILY [facility] Last Admin: 05/24/19 09:27 Dose: 1 patch Documented by: Buprenorphine Hcl [ (Subutex] 8 Mg) 8 mg SUBLINGUAL AC-TID [facility] Last Admin: 05/24/19 11:41 Dose: Not Given Documented by: Ondansetron HCl (Zofran) 4 mg IVP Q6HR PRN PRN Reason: Nausea And Vomiting Last Admin: 05/22/19 19:01 Dose: 4 mg Documented by: Pantoprazole Sodium (Protonix) 40 mg PO AC-BRKFST [facility] Last Admin: 05/24/19 06:34 Dose: 40 mg Documented by: Prednisone () 10 mg PO BID [facility] Last Admin: 05/24/19 11:02 Dose: Not Given Documented by: Physical examination: VITAL SIGNS: 97.6, 84, 26, 126/80, 96% on 3 L GENERAL: Sitting up in a chair, eating his lunch EYES: Pupils equal. Conjunctiva pale HEENT: External appearance of nose and ears normal, oral cavity dry.endotracheal tube in place NECK: JVD unable to assess; masses not palpable. HEART: First and second heart sounds are normal; no edema. LUNGS: Respiratory rate increased, diminished breath sounds. right-sided chest tube in place ABDOMEN: Soft, nontender, liver spleen not palpable, no masses palpable. PSYCH: Answering questions. INVESTIGATIONS, reviewed in the clinical context: White count 9.7 hemoglobin 10.8 platelets 554 potassium 4.3 creatinine 0.48 Sputum growing Viridiana albicans other cultures pending CT chest on April 23-small loculated pleural effusion on the right, slightly larger pleural effusions left Previous investigations White count 28.5 hemoglobin 12.1 sodium 127 potassium 4.1. Creatinine 0.81 albumin 3.0 UA negative for leukoesterase and nitrites Chest x-ray film personally reviewed by me-shows dense consolidation of the right side with questionable fluid Computed tomography scan of the chest shows complex lobular take fluid collection in the right extending across the midline diffuse airspace disease in the right with bullous changes in the apex lobes no solid mass reported CT chest-multiple loculated right-sided pleural effusion are again noted. On the sliding interval improvement.. Interval development of coarse infiltrate for the left lung. Assessment: -Bilateral multilobar pneumonia with right parapneumonic effusion with loculated fluid, with sepsis, -Right-sided chest tube placed, initially about 1100 mL of fluid obtained, status post alteplase -Acute hypoxic respiratory failure from above, status post ventilator support -Acute delirium with encephalopathy secondary to underlying sepsis, much improved -Acute COPD exacerbation in a current smoker, slow to respond -nicotine dependence patient's cigarette smoker -Idiopathic peripheral neuropathy -Bipolar disorder -Hyponatremia -Hypoalbuminemia could be an acute phase reactant -Marfanoid appearance Plan: Continue with broad-spectrum antibiotics. Patient is using his I-S. He was discussed with family the bedside. Follow with [facility] consultant colleagues.
[2019-05-24 17:05] LABS: Glucose,Whole Blood 147 mg/dL (75-99)
[2019-05-24] MEDS: LACTATED RINGERS 1,000 ML IV SCH (17:47)
[2019-05-24] MEDS: LEVOFLOXACIN 750MG-D5W PMX 750 MG in DEXTROSE/WATER 1 150ML.BAG IVPB SCH (18:45)
[2019-05-24 20:10] LABS: Glucose,Whole Blood 150 mg/dL (75-99)
[2019-05-24] MEDS: ONDANSETRON 4 MG/2 ML VIAL IVP PRN (21:03)
[2019-05-24] MEDS: DOXEPIN 25 MG CAP PO SCH ×2 (21:22→23:57)
[2019-05-24] MEDS: CALCIUM CARBONATE LIQUID 500 MG/5 ML CUP PO PRN (22:57)
[2019-05-25] MEDS: KETOROLAC 30 MG/ML 1 ML VIAL IVP SCH ×4 (04:32→17:31)
[2019-05-25] MEDS: VANCOMYCIN 1,500 MG in SODIUM CHLORIDE 0.9% 250 ML IVPB SCH ×3 (05:25→21:47)
[2019-05-25 05:51] LABS: HCT 33.9 % (39.0-53.0); HGB 10.6 gm/dL (13.0-17.5); MCH 30.4 pg (25.0-35.0); MCHC 31.2 g/dL (31.0-37.0); MCV 97.4 fL (80.0-100.0); Mean Platelet Volume 6.1; Platelet Count 542 k/uL (150-450); RBC 3.48 m/uL (4.30-5.90); RDW 14.6 % (11.5-15.5); WBC 17.3 k/uL (3.8-10.6)
[2019-05-25 05:54] LABS: African American GFR (CKD) >90 (>60 ml/min/1.73 sqM); Anion Gap 1 mmol/L; Blood Urea Nitrogen 11 mg/dL (9-20); Calcium 8.3 mg/dL (8.4-10.2); Carbon Dioxide 33 mmol/L (22-30); Chloride 103 mmol/L (98-107); Glucose 100 mg/dL (74-99); Sodium 137 mmol/L (137-145)
[2019-05-25] MEDS: INSULIN ASPART (NovoLOG) 100 UNIT/ML VIAL SQ SCH ×4 (06:46→20:10)
[2019-05-25] MEDS: Buprenorphine Hcl [Subutex] 8 MG SUBLINGUAL SCH ×3 (06:46→17:32)
[2019-05-25] MEDS: HYDROcodone/APAP 5-325MG 1 EACH TAB PO PRN ×3 (06:51→18:53)
[2019-05-25] MEDS: LORazepam 2 MG/ML INJ IV PRN ×3 (06:51→18:54)
--- NOTE | 2019-05-25 07:00 | XR ---
EXAMINATION TYPE: XR chest 1V portable DATE OF EXAM: 05/25/2019 HISTORY: Loculated right pleural effusion/empyema. REFERENCE: Previous study dated 05/24/2019. FINDINGS: There is a right subclavian catheter in place. Its tip is in the superior vena cava. Right pleural drain is in place. No definite pneumothorax is seen at this time. There continues to be bibas ilar airspace disease. There are bilateral effusions, greater on the left the right. The heart is not enlarged. IMPRESSION: 1. LEFT BASILAR AIRSPACE DISEASE AND TO A LESSER EXTENT RIGHT BASILAR AIRSPACE DISEASE. 2. BILATERAL EFFUSIONS, OR ON THE LEFT THAN RIGHT.
[2019-05-25 07:15] LABS: Glucose,Whole Blood 126 mg/dL (75-99)
[2019-05-25 07:27] LABS: Band Neutrophils % 3 %; Eosinophils # (M) 0.35 k/uL (0-0.7); Lymphocytes # (M) 3.98 k/uL (1.0-4.8); Metamyelocytes # (M) 0.52 k/uL (0); Metamyelocytes % 3 %; Monocytes # (M) 1.21 k/uL (0-1.0); Myelocytes # (M) 0.35 k/uL (0); Myelocytes % 2 %; Neutrophils % (M) 63 %; Nucleated Red Blood Cells 0 /100 WBC (0-0); Total Cells Counted 200
[2019-05-25 07:30] LABS: Anisocytosis (M) Present
[2019-05-25 07:31] LABS: Polychromasia Present
[2019-05-25 07:32] LABS: Large Platelets Present; Toxic Granulation Present
[2019-05-25] MEDS: IPRATROPIUM-ALBUTEROL 3 ML NEB INHALATION SCH ×4 (08:10→19:29)
[2019-05-25] MEDS: PIPERACILLIN-TAZOBACTAM 3.375 GM in SODIUM CHLORIDE 0.9% 100 ML IVPB SCH ×2 (08:22→15:37)
[2019-05-25] MEDS: FLUCONAZOLE 100 MG TAB PO SCH (08:22)
[2019-05-25] MEDS: ENOXAPARIN 40 MG/0.4 ML SYRINGE SQ SCH (08:22)
[2019-05-25] MEDS: NICOTINE 21MG/24HR PATCH TRANSDERM SCH (08:22)
[2019-05-25] MEDS: PANTOPRAZOLE 40 MG TABLET PO SCH (08:22)
[2019-05-25] MEDS: predniSONE 10 MG TAB PO SCH ×2 (08:22→20:10)
[2019-05-25] MEDS: LURASIDONE 20 MG TAB PO SCH ×2 (08:23→16:49)
[2019-05-25] MEDS: busPIRone HCl 10 MG TAB PO SCH ×2 (08:24→20:18)
[2019-05-25] MEDS: amLODIPine 5 MG TAB PO SCH (08:24)
[2019-05-25] MEDS: GABAPENTIN 300 MG CAP PO SCH ×3 (08:25→21:47)
[2019-05-25] MEDS: NOREPINEPHRINE 32 MG in SODIUM CHLORIDE 0.9% 218 ML IV SCH (08:25)
[2019-05-25] MEDS ORDERED: ALTEPLASE 10 MG in SODIUM CHLORIDE 0.9% 100 ML IRRIGATION ONE (08:30)
--- NOTE | 2019-05-25 09:59 | P.PN ---
Subjective Progress Note Date: 05/25/19 54-year-old male who is a long-standing history of bipolar disorder schizophrenia and a closed head injury presents to the emergency center with increasing shortness of breath. It is noted that before his intubation the patient was a poor historian and he was concerned that he was having withdrawal from benzodiazepine therapy. At admission his chest x-ray was abnormal with a right pleural effusion and right lower lobe consolidation. He had evidence of fever and leukocytosis as well as pleuritic chest pain. He was tachycardic and was resuscitated and treated with antibiotic therapy of Zosyn and Levaquin. The patient's status has declined. He developed respiratory failure requiring i ntubation sedation and mechanical ventilation. He also had a chest tube applied to the right pleural effusion. His required vasopressor therapy that is also being titrated. His oxygenation is improved he is on a lower FiO2 but still a PEEP of 12. He is on propofol and very comfortable. 05/20/2018 the patient is remaining intubated sedated and mechanically ventilated. He is otherwise quite comfortable. We'll rule him for a follow-up computed tomography scan to evaluate his pulmonary status and pneumonia. His temperature was 1013 is now 98.2. 05/22/2019 patient is more comfortable today. He has had improvement of his status and is currently on CPAP with plans for extubation in the near future. He is currently quite comfortable with no acute complaint. He is afebrile and his writing on the pad of his desire to be extubated 05/23/2019 .He is now extubated and is comfortable. He is complaining of pain and requesting narcotic pain medications although he is on eversion of Suboxone. Other than this he relates it is improving. Some discomfort in the chest tube site. Shortness of breath is improved. No further fevers or chills. Shortness of breath is improved. He is eating without any difficulty, no nausea or emesis 05/25/2016Patient is sitting upright feeling well eating his breakfast without difficulties. He scan is planned for tomorrow determine when his tube can be removed. Of note fluconazole had been added. Objective - Vital Signs Vital signs: Vital Signs Temp 98.0 F 05/25/19 04:00 Pulse 74 05/25/19 07:00 Resp 19 05/25/19 07:00 BP 125/87 05/25/19 07:00 Pulse Ox 98 10/06/19 07:00 Intake & Output 05/24/19 05/25/19 05/25/19 18:59 06:59 18:59 Intake Total 1200 1635 Output Total 4370 1525 Balance -3170 110 Weight 75.2 kg Intake: IV 1200 1015 Lactated Ringers 1,000 ml 600 600 @ 50 mls/hr IV .Q20H [facility] Rx#:[id number] Levofloxacin 750Mg-D5w 150 65 Pmx 750 mg In Dextrose/ Water 1 150ml.bag @ 100 mls/hr IVPB Q24H [facility] Rx#: [id number] Piperacillin-Tazobactam 3 200 100 .375 gm In Sodium Chloride 0.9% 100 ml @ 25 mls/hr IVPB Q8HR [facility] Rx# :[id number] Vancomycin 1,500 mg In 250 250 Sodium Chloride 0.9% 250 ml @ 125 mls/hr IVPB Q8H [facility] Rx#:[id number] Intake, IV Titration 0 250 Amount Norepinephrine 32 mg In 0 Sodium Chloride 0.9% 218 ml @ 0.07 MCG/KG/MIN 2. 136 mls/hr IV .Q24H [facility] Rx#:[id number] Vancomycin 1,500 mg In 250 Sodium Chloride 0.9% 250 ml @ 125 mls/hr IVPB Q8H [facility] Rx#:[id number] Oral 370 Output: Chest Tube Drainage 100 Chest Tube Right Lateral 100 Chest Urine 4270 1525 Other: Voiding Method Indwelling Catheter Indwelling Catheter # Voids 1 ABP, PAP, CO, CI - Last Documented Arterial Blood Pressure 172/81 - Exam 54 -year-old male extubated comfortable sitting upright and eating HEENT: Anicteric conjunctiva are pink and moist nasal mucosa grossly intact without significant lesions, there is no thrush Around the endotracheal tube, he is edentulous Neck: The neck is supple without significant lymphadenopathy or thyromegaly. Lungs:Symmetrical bilateral air entry decreased breath sounds at bilateral bases bronchial sounds right base Heart: Regular rate and rhythm with an audible S1-S2, no S3 no S4. There is no significant murmur click or rub, PMI was nondisplaced. Abdomen: Positive bowel sounds soft and nontender without palpable masses or organomegaly. There was no guarding or rebound. Extremities: The upper extremities have excellent pulses they are symmetric, no significant petechiae or telangiectasia. No splinter hemorrhages were noted. The lower extremities are free from significant edema. The peripheral pulses were 2+ and symmetric. Neuro: Awake alert oriented person place and time - Labs CBC & Chem 7: 05/25/19 05:11 05/25/19 05:11 Labs: Abnormal Lab Results - Last 24 Hours (Table) 05/24/19 05/24/19 05/24/19 Range/Units 11:50 17:02 20:06 WBC (3.8-10.6) k/uL RBC (4.30-5.90) m/uL Hgb (13.0-17.5) gm/dL Hct (39.0-53.0) % Plt Count (150-450) k/uL Neutrophils # (Manual) (1.3-7.7) k/uL Monocytes # (Manual) (0-1.0) k/uL Metamyelocytes # (Man) (0) k/uL Myelocytes # (Manual) (0) k/uL Carbon Dioxide (22-30) mmol/L Creatinine (0.66-1.25) mg/dL Glucose (74-99) mg/dL POC Glucose (mg/dL) 114 H 147 H 150 H (75-99) mg/dL Calcium (8.4-10.2) mg/dL 05/25/19 05/25/19 05/25/19 Range/Units 05:11 05:11 06:45 WBC 17.3 H (3.8-10.6) k/uL RBC 3.48 L (4.30-5.90) m/uL Hgb 10.6 L (13.0-17.5) gm/dL Hct 33.9 L (39.0-53.0) % Plt Count 542 H (150-450) k/uL Neutrophils # (Manual) 11.40 H (1.3-7.7) k/uL Monocytes # (Manual) 1.21 H (0-1.0) k/uL Metamyelocytes # (Man) 0.52 H (0) k/uL Myelocytes # (Manual) 0.35 H (0) k/uL Carbon Dioxide 33 H (22-30) mmol/L Creatinine 0.48 L (0.66-1.25) mg/dL Glucose 100 H (74-99) mg/dL POC Glucose (mg/dL) 126 H (75-99) mg/dL Calcium 8.3 L (8.4-10.2) mg/dL Microbiology - Last 24 Hours (Table) 05/21/19 14:32 Gram Stain - Final Bronchial Washings - Right Bronchial Washings Culture - Final Viridiana albicans Viridiana glabrata Laboratory Results WBC 17.3 k/uL (3.8-10.6) H 05/25/19 05:11 RBC 3.48 m/uL (4.30-5.90) L 05/25/19 05:11 Hgb 10.6 gm/dL (13.0-17.5) L 05/25/19 05:11 Hct 33.9 % (39.0-53.0) L 05/25/19 05:11 MCV 97.4 fL (80.0-100.0) 05/25/19 05:11 MCH 30.4 pg (25.0-35.0) 05/25/19 05:11 MCHC 31.2 g/dL (31.0-37.0) 05/25/19 05:11 RDW 14.6 % (11.5-15.5) 05/25/19 05:11 Plt Count 542 k/uL (150-450) H 05/25/19 05:11 Neutrophils % 92 % 05/20/19 05:10 Neutrophils % (Manual) 63 % 05/25/19 05:11 Band Neutrophils % 3 % 05/25/19 05:11 Lymphocytes % 3 % 05/20/19 05:10 Lymphocytes % (Manual) 23 % 05/25/19 05:11 Monocytes % 5 % 05/20/19 05:10 Monocytes % (Manual) 7 % 05/25/19 05:11 Eosinophils % 0 % 05/20/19 05:10 Eosinophils % (Manual) 2 % 05/25/19 05:11 Basophils % 0 % 05/20/19 05:10 Metamyelocytes % 3 % 05/25/19 05:11 Myelocytes % 2 % 05/25/19 05:11 Neutrophils # 21.3 k/uL (1.3-7.7) H 05/20/19 05:10 Neutrophils # (Manual) 11.40 k/uL (1.3-7.7) H 05/25/19 05:11 Lymphocytes # 0.6 k/uL (1.0-4.8) L 05/20/19 05:10 Lymphocytes # (Manual) 3.98 k/uL (1.0-4.8) 05/25/19 05:11 Monocytes # 1.1 k/uL (0-1.0) H 05/20/19 05:10 Monocytes # (Manual) 1.21 k/uL (0-1.0) H 05/25/19 05:11 Eosinophils # 0.0 k/uL (0-0.7) 05/20/19 05:10 Eosinophils # (Manual) 0.35 k/uL (0-0.7) 05/25/19 05:11 Basophils # 0.1 k/uL (0-0.2) 05/20/19 05:10 Metamyelocytes # (Man) 0.52 k/uL (0) H 05/25/19 05:11 Myelocytes # (Manual) 0.35 k/uL (0) H 05/25/19 05:11 Nucleated RBCs 0 /100 WBC (0-0) 05/25/19 05:11 Manual Slide Review Performed 05/25/19 05:11 Toxic Granulation Present 05/25/19 05:11 Large Platelets Present 05/25/19 05:11 Polychromasia Present 05/25/19 05:11 Anisocytosis (manual) Present 05/25/19 05:11 Macrocytosis Slight 05/22/19 06:10 Sample Site [place] 05/22/19 11:22 ABG pH 7.51 (7.35-7.45) H 05/22/19 11:22 ABG pCO2 43 mmHg (35-45) 05/22/19 11:22 ABG pO2 90 mmHg (83-108) 05/22/19 11:22 ABG HCO3 34 mmol/L (21-25) H 05/22/19 11:22 ABG Total CO2 36 mmol/L (19-24) H 05/22/19 11:22 ABG O2 Saturation 97.2 % (94-97) H 05/22/19 11:22 ABG Base Excess 11.4 mmol/L 05/22/19 11:22 Prashant Test na 05/22/19 11:22 FiO2 50 % 05/22/19 11:22 Sodium 137 mmol/L (137-145) 05/25/19 05:11 Potassium 4.0 mmol/L (3.5-5.1) 05/25/19 05:11 Chloride 103 mmol/L (98-107) 05/25/19 05:11 Carbon Dioxide 33 mmol/L (22-30) H 05/25/19 05:11 Anion Gap 1 mmol/L 05/25/19 05:11 BUN 11 mg/dL (9-20) 05/25/19 05:11 Creatinine 0.48 mg/dL (0.66-1.25) L 05/25/19 05:11 Est GFR (CKD-EPI)AfAm >90 (>60 ml/min/1.73 sqM) 05/25/19 05:11 Est GFR (CKD-EPI)NonAf >90 (>60 ml/min/1.73 sqM) 05/25/19 05:11 Glucose 100 mg/dL (74-99) H 05/25/19 05:11 POC Glucose (mg/dL) 126 mg/dL (75-99) H 05/25/19 06:45 POC Glu Filling Winder ID Lily Velez 05/25/19 06:45 Plasma Lactic Acid Jared 1.1 mmol/L (0.7-2.0) 05/16/19 18:43 Calcium 8.3 mg/dL (8.4-10.2) L 05/25/19 05:11 Total Bilirubin 1.0 mg/dL (0.2-1.3) 05/16/19 18:43 AST 36 U/L (17-59) 05/16/19 18:43 ALT 33 U/L (21-72) 05/16/19 18:43 Alkaline Phosphatase 71 U/L (38-126) 05/16/19 18:43 Total Protein 6.4 g/dL (6.3-8.2) 05/16/19 18:43 Albumin 3.0 g/dL (3.5-5.0) L 05/16/19 18:43 Urine Color Yellow 05/19/19 12:20 Urine Appearance Clear (Clear) 05/19/19 12:20 Urine pH 6.5 (5.0-8.0) 05/19/19 12:20 Ur Specific [place] 1.038 (1.001-1.035) H 05/19/19 12:20 Urine Protein 1+ (Negative) H 05/19/19 12:20 Urine Glucose (UA) Negative (Negative) 05/19/19 12:20 Urine Ketones Negative (Negative) 05/19/19 12:20 Urine Blood Negative (Negative) 05/19/19 12:20 Urine Nitrite Negative (Negative) 05/19/19 12:20 Urine Bilirubin Negative (Negative) 05/19/19 12:20 Urine Urobilinogen <2.0 mg/dL (<2.0) 05/19/19 12:20 Ur Leukocyte Esterase Negative (Negative) 05/19/19 12:20 Urine RBC 5 /hpf (0-5) 05/19/19 12:20 Urine WBC 3 /hpf (0-5) 05/19/19 12:20 Ur Squamous Epith Cells <1 /hpf (0-4) 05/19/19 12:20 Urine Bacteria Rare /hpf (None) H 05/19/19 12:20 Hyaline Casts 101 /lpf (0-2) H 05/16/19 18:43 Urine Mucus Rare /hpf (None) H 05/19/19 12:20 Fluid Source Bronchial Wash 05/21/19 14:32 Fluid Color Colorless 05/21/19 14:32 Fluid Appearance Hazy 05/21/19 14:32 Fluid RBC 20 /uL 05/21/19 14:32 Fluid Nucleated Cells 330 /uL 05/21/19 14:32 Fluid Polynuclear WBCs 91 % 05/21/19 14:32 Fluid Mononuclear WBCs 9 % 05/21/19 14:32 Body Fluid Glucose Source Pleural Fluid 05/19/19 12:20 Fluid Glucose 31 mg/dL 05/19/19 12:20 Body Fluid Protein Source Pleural Fluid 05/19/19 12:20 Fluid Total Protein 3900 mg/dL 05/19/19 12:20 Body Fluid LDH Source Pleural Fluid 05/19/19 12:20 Fluid LDH 2122 U/L 05/19/19 12:20 Fluid Comment Few Mesothelial 05/19/19 12:20 Vancomycin Trough 16.1 ug/mL 05/23/19 05:30 Salicylates <1.0 mg/dL 05/16/19 18:43 Urine Opiates Screen Not Detected (NotDetected) 05/16/19 18:43 Ur Oxycodone Screen Not Detected (NotDetected) 05/16/19 18:43 Urine Methadone Screen Not Detected (NotDetected) 05/16/19 18:43 Ur Propoxyphene Screen Not Detected (NotDetected) 05/16/19 18:43 Acetaminophen <10.0 ug/mL 05/16/19 18:43 Ur Barbiturates Screen Not Detected (NotDetected) 05/16/19 18:43 U Tricyclic Antidepress Detected (NotDetected) H 05/16/19 18:43 Ur Phencyclidine Scrn Not Detected (NotDetected) 05/16/19 18:43 Ur Amphetamines Screen Not Detected (NotDetected) 05/16/19 18:43 U Methamphetamines Scrn Not Detected (NotDetected) 05/16/19 18:43 U Benzodiazepines Scrn Detected (NotDetected) H 05/16/19 18:43 Urine Cocaine Screen Not Detected (NotDetected) 05/16/19 18:43 U Marijuana (THC) Screen Not Detected (NotDetected) 05/16/19 18:43 Serum Alcohol <10 mg/dL 05/16/19 18:43 Influenza Type A RNA Not Detected (Not Detectd) 05/16/19 18:43 Influenza Type B (PCR) Not Detected (Not Detectd) 05/16/19 18:43 Virus Source See Below 05/21/19 14:32 Viral Test See Below 05/21/19 14:32 Virus Analysis Interp See Below 05/21/19 14:32 Microbiology 05/21/19 14:32 Bronchial Washings - Right Gram Stain - Final 05/21/19 14:32 Bronchial Washings - Right Bronchial Washings Culture - Final Viridiana albicans Viridiana glabrata 05/19/19 12:20 Pleural Fluid Gram Stain - Final 05/19/19 12:20 Pleural Fluid Body Fluid Culture - Final 05/16/19 18:43 Blood Blood Culture - Final No Growth after 144 hours 05/21/19 14:32 Bronchoalviolar Lavage - Right Acid Fast Bacilli Smear - Final 05/21/19 14:32 Bronchoalviolar Lavage - Right Acid Fast Bacilli Culture - Preliminary 05/21/19 14:32 Bronchoalviolar Lavage - Right Fungal Culture - Preliminary 05/19/19 00:25 Sputum Gram Stain - Final 05/19/19 00:25 Sputum Sputum Culture - Final Viridiana albicans 05/19/19 12:20 Pleural Fluid Acid Fast Bacilli Smear - Final 05/19/19 12:20 Pleural Fluid Acid Fast Bacilli Culture - Preliminary 05/19/19 12:20 Pleural Fluid Fungal Culture - Preliminary Assessment and Plan (1) Community acquired bacterial pneumonia Narrative/Plan: 54-year-old male it is a complex past medical history with his underlying mental illness and history of head trauma with significant compromise status. Presents to hospital with significant shortness of breath but evidence of the extensive pleural effusion to the right chest and the pneumonia. Chest tube is in place and is receiving appropriate antibiotic therapy this time with Zosyn and Levaquin with his intensive care unit stay and concerns for potential gram-negative pneumonia as well as aspiration. Pleural fluid has been sent as a sputum culture to further help direct antibiotic therapy. The patient has had some improvement of his status with decreasing oxygen requirements throughout the day but still remains on PEEP of 12. Hemodynamically he is stable to improved requiring less vasopressor therapy. Adequate urinary output is noted. He has an extensive leukocytosis directly related to his extensive pneumonia and possible empyema. 05/20/2019 the patient is requiring ongoing mechanical ventilation. Cultures are pending from his sputum as well as the drainage from the pleural effusion. Continue current antibiotic therapy. Continue with supportive care. Is noted his PEEP did decrease. Vasopressor therapy. Cultures to further help direct antibiotic therapy. 05/22/2019 the patient is having improvement will likely be extubated today. He is doing well on current antibiotic therapy off of vasopressor therapy and improving pulmonary status. Cultures are pending responding well to current antibiotic therapy cultures will further direct The time of discharge AFB negative so far fungal culture negative so far. 05/23/2019 the patient has had significant improvement that he is now extubated sitting upright eating well and having very little shortness of breath. He is having some pain from the chest tube site other than that he is doing quite well. The culture data is negative so far with no evidence of any significant fungal or acid-fast bacilli antibiotic therapy as he improves will be further directed his cultures become available. 05/25/2019 patient is having some improvement thoracic surgery is following. Chest tube is in place. Follow-up CAT scan plan for tomorrow determine if the tube can be removed. Of note Viridiana glabrata has been isolated will change fluconazole to Eraxis for now continue ongoing supportive care and will deal with the primary service and discharge planners is to the overall discharge plan and what appropriate antimicrobial therapy will constitute. Current Visit: Yes Status: Acute Code(s): J15.9 - UNSPECIFIED BACTERIAL PNEUMONIA SNOMED Code(s): 431850510 (2) Acute respiratory failure with hypoxia and hypercapnia Current Visit: Yes Status: Acute Code(s): J96.01 - ACUTE RESPIRATORY FAILURE WITH HYPOXIA; J96.02 - ACUTE RESPIRATORY FAILURE WITH HYPERCAPNIA SNOMED Code(s): 417784215 (3) Leukocytosis Current Visit: Yes Status: Acute Code(s): D72.829 - ELEVATED WHITE BLOOD CELL COUNT, UNSPECIFIED SNOMED Code(s): 599684384
--- NOTE | 2019-05-25 10:13 | P.PN ---
Subjective Progress Note Date: 05/25/19 Principal diagnosis: Community-acquired bacterial pneumonia, acute respiratory failure with hypoxia and hypercapnia, leukocytosis. Past medical history significant for chronic obstructive pulmonary disease, chronic and ongoing tobacco dependence, history of closed head injury, bipolar disorder, paranoid schizophrenia, narcotic and illicit drug use. Status post day #4 bronchoscopy and bronchoalveolar lavage of the right lower lobe, bronchial alveolar lavage of the left lower lobe and lingula and suctioning of mucous plugging in both lower lobes performed by Dr. Harris. Status post day #6 intubation with mechanical ventilator support, subsequently extubated on 05/22/2018 at 12:17 PM. Right thoracostomy chest tube placement placed by Dr. Rai. Right subclavian triple-lumen central line placement by Dr. Rai. The patient is resting in bed in the intensive care unit. He is in no acute distress. He currently denies any complaints of pain or shortness of breath. He remains on 3 L nasal cannula with oxygen saturations 97%. He is achieving 1750 mL on his incentive spirometry with encouragement. He remains hemodynamically stable and is currently on no inotropic or pressor support. He has been afebrile in the last 24 hours. His lab results this morning show a WBC count 17.3, hemoglobin 10.6, platelets 542, BUN 11, and creatinine 0.48. He is alert and oriented 3. He remains with a right pleural chest tube in place to low continuous wall suction -20 cm H2O. No air leak is present. Draining thin serous with thick whitish sediment drainage. 450 mL output in the last 24 hours. Continues to have some purulent colored drainage coming from around his chest tube insertion site. He has received 4 doses of alteplase 10 mg/100 mL of normal saline over the last 4 days. Bedside telemetry showing normal sinus rhythm heart rate 98 and current blood pressure is 129/73. He has a right subclavian triple-lumen in place and is functioning. Cespedes catheter was discontinued yesterday and he is voiding clear yellow urine. Objective - Vital Signs Vital signs: Vital Signs Temp 98.0 F 05/25/19 04:00 Pulse 74 05/25/19 07:00 Resp 19 05/25/19 07:00 BP 125/87 05/25/19 07:00 Pulse Ox 98 05/25/19 07:00 Intake & Output 05/24/19 05/25/19 05/25/19 18:59 06:59 18:59 Intake Total 1200 1635 Output Total 4370 1525 Balance -3170 110 Weight 75.2 kg Intake: IV 1200 1015 Lactated Ringers 1,000 ml 600 600 @ 50 mls/hr IV .Q20H [facility] Rx#:[id number] Levofloxacin 750Mg-D5w 150 65 Pmx 750 mg In Dextrose/ Water 1 150ml.bag @ 100 mls/hr IVPB Q24H [facility] Rx#: [id number] Piperacillin-Tazobactam 3 200 100 .375 gm In Sodium Chloride 0.9% 100 ml @ 25 mls/hr IVPB Q8HR [facility] Rx# :[id number] Vancomycin 1,500 mg In 250 250 Sodium Chloride 0.9% 250 ml @ 125 mls/hr IVPB Q8H [facility] Rx#:[id number] Intake, IV Titration 0 250 Amount Norepinephrine 32 mg In 0 Sodium Chloride 0.9% 218 ml @ 0.07 MCG/KG/MIN 2. 136 mls/hr IV .Q24H [facility] Rx#:[id number] Vancomycin 1,500 mg In 250 Sodium Chloride 0.9% 250 ml @ 125 mls/hr IVPB Q8H [facility] Rx#:[id number] Oral 370 Output: Chest Tube Drainage 100 Chest Tube Right Lateral 100 Chest Urine 4270 1525 Other: Voiding Method Indwelling Catheter Indwelling Catheter # Voids 1 ABP, PAP, CO, CI - Last Documented Arterial Blood Pressure 172/81 - Constitutional General appearance: Present: cooperative, no acute distress, thin - Respiratory Details: Lung sounds essentially clear throughout, diminished to his right lower lobe. Respirations are symmetrical and nonlabored. Right pleural chest tube remains in place to low continuous wall suction -20 cm H2O. No air leak is present. Draining thin serous drainage with white thick sediment. Oxygen saturations 97% on 3 L nasal cannula. Achieving 1750 mL on his incentive spirometry. - Cardiovascular Details: Regular rhythm and rate. S1 and S2 present, negative for S3, gallop or murmur. Knee-high sequential compression devices in place was bilateral lower extremities. No edema present. - Gastrointestinal Gastrointestinal Comment(s): Abdomen is soft, nontender and nondistended. Active bowel sounds present in all 4 abdominal quadrants. No guarding or rigidity. No organomegaly appreciated. - Genitourinary Genitourinary Comment(s): Voiding clear yellow urine. - Integumentary Integumentary Comment(s): Skin is warm and dry. No clubbing or cyanosis is present. No rash or abnormal pigmentation is present. Dressing is clean, dry and in place to his right chest tube insertion site. - Neurologic Neurologic Comment(s): No focal deficits. Neurologic: Present: CNII-XII intact - Musculoskeletal Musculoskeletal: Present: generalized weakness, strength equal bilaterally - Psychiatric Psychiatric: Present: A&O x's 3, appropriate affect, intact judgment & insight - Allied health notes Allied health notes reviewed: nursing - Labs CBC & Chem 7: 05/25/19 05:11 05/25/19 05:11 Labs: Abnormal Lab Results - Last 24 Hours (Table) 05/24/19 05/24/19 05/24/19 Range/Units 11:50 17:02 20:06 WBC (3.8-10.6) k/uL RBC (4.30-5.90) m/uL Hgb (13.0-17.5) gm/dL Hct (39.0-53.0) % Plt Count (150-450) k/uL Neutrophils # (Manual) (1.3-7.7) k/uL Monocytes # (Manual) (0-1.0) k/uL Metamyelocytes # (Man) (0) k/uL Myelocytes # (Manual) (0) k/uL Carbon Dioxide (22-30) mmol/L Creatinine (0.66-1.25) mg/dL Glucose (74-99) mg/dL POC Glucose (mg/dL) 114 H 147 H 150 H (75-99) mg/dL Calcium (8.4-10.2) mg/dL 05/25/19 05/25/19 05/25/19 Range/Units 05:11 05:11 06:45 WBC 17.3 H (3.8-10.6) k/uL RBC 3.48 L (4.30-5.90) m/uL Hgb 10.6 L (13.0-17.5) gm/dL Hct 33.9 L (39.0-53.0) % Plt Count 542 H (150-450) k/uL Neutrophils # (Manual) 11.40 H (1.3-7.7) k/uL Monocytes # (Manual) 1.21 H (0-1.0) k/uL Metamyelocytes # (Man) 0.52 H (0) k/uL Myelocytes # (Manual) 0.35 H (0) k/uL Carbon Dioxide 33 H (22-30) mmol/L Creatinine 0.48 L (0.66-1.25) mg/dL Glucose 100 H (74-99) mg/dL POC Glucose (mg/dL) 126 H (75-99) mg/dL Calcium 8.3 L (8.4-10.2) mg/dL Microbiology - Last 24 Hours (Table) 05/21/19 14:32 Gram Stain - Final Bronchial Washings - Right Bronchial Washings Culture - Final Viridiana albicans Viridiana glabrata - Imaging and Cardiology Chest x-ray: report reviewed, image reviewed Assessment and Plan Assessment: 1. Hypoxic respiratory failure, post intubation mechanical ventilation 2. Right loculated pleural effusion, status post right-sided chest tube placement 3. Sepsis secondary to multilobar community-acquired pneumonia 4. Leukocytosis, secondary to above 5. Hypotension requiring norepinephrine support 6. Chronic and ongoing tobacco dependence 7. Chronic obstructive pulmonary disease 8. Paranoid schizophrenia 9. Bipolar disorder 10. History of closed head injury 11. History of compartment syndrome of the left lower extremity Plan: 1. Keep right-sided pleural chest tube to low continuous wall suction -20 cm H2O. continue to record accurate I&O. 2. Bronchodilators and corticosteroids management per pulmonary and critical care management. 3. Antibiotic management per infectious disease recommendations. 4. Continue to monitor daily labs and chest x-rays. 5. DVT and GI prophylaxis. 6. Medical management and other comorbidities management per primary care service. 7. Nutrition management per dietitian's recommendations. 8. Alteplase 10 mg/100 mL of normal saline 1 today. 9. Bronchial washings culture show few Viridiana albicans. 10. Encourage use of his incentive spirometry every hour while awake. 11. More recommendations to follow based on patient's clinical course. Time with Patient: Greater than 30
[2019-05-25] MEDS: CALCIUM CARBONATE LIQUID 500 MG/5 ML CUP PO PRN (10:42)
[2019-05-25] MEDS ORDERED: ANIDULAFUNGIN 200 MG in SODIUM CHLORIDE 0.9% 200 ML IVPB ONE (11:00)
[2019-05-25] MEDS: LACTATED RINGERS 1,000 ML IV SCH (11:23)
[2019-05-25 11:33] LABS: Glucose,Whole Blood 94 mg/dL (75-99)
--- NOTE | 2019-05-25 12:15 | P.PN ---
Subjective Progress Note Date: 05/25/19 Principal diagnosis: Acute hypoxic respiratory failure secondary to multilobar pneumonia and right- sided loculated pleural effusion. This is a 54-year-old gentleman who follows with Dr. Srinivasan as his primary care physician. He has a history of bipolar disorder, closed head injury, schizophrenia, compartment syndrome of the left lower extremity, COPD, chronic and ongoing tobacco dependence. He presented to the emergency room yesterday with altered mental status and fever. The patient himself is a poor historian. He was refusing to give much information. He did feel as though he was withdrawing from benzodiazepines. Urine drug screen was positive for tricyclic antidepressants and benzodiazepines. Chest x-ray showed a new right pleural effusion and right lower lobe consolidation. White count 28.5. Hemoglobin 12.1. Creatinine 0.81. Influenza screen negative. Initial temp 101.1. He is admitted for suspected pneumonia. He is seen today in consultation on the regular medical floor. He is currently awake. He is a poor historian. Unable to give much information. Does complain of right sided chest p ain and pain with inhalation and coughing. He's maintaining O2 saturation in the low 90s on 2 L/m per nasal cannula. He's been afebrile. Somewhat tac hycardic. His been initiated on Zosyn and Levaquin. Lactated Ringer's at 125 ML's per hour. On 05/18/2019 the patient is doing well stable and is hemodynamic stable and afebrile. Still on today's of oxygen by nasal cannula pulse ox is 93%. CAT scan results were noted. Consult was placed for interventional radiology regarding a percutaneous predicted catheter insertion. The patient remains on a combination of antibiotics including Zosyn and Levaquin and vancomycin. The blood cultures negative. Reevaluated today on 05/19/2019, patient was already seen earlier by Dr. Rai, and he placed a right sided chest tube for his worsening right-sided pleural effusion. Patient is now on mechanical ventilation with assist control rate of 20 FiO2 of 50% PEEP of 12 tidal volume of 500. ABG this morning showed a pO2 of 83 pCO2 of 51 pH of 7.38 patient was earlier on 100% FiO2 and high PEEP prior to placement of the chest tube. Over 1500 mL of serosanguineous fluid removed from the right pleural space, results on the fluid are pending. Patient's brother is at bedside, and I updated the brother on his condition. Patient is hemodynamically stable, he is also on propofol, not requiring any pressors at this point. I was able to cut down the FiO2 to 50%, and kept him on a PEEP of 12. His peak airway pressure is in the high 20s, plateau pressure is 23 Patient was reevaluated today on 05/20/2019, remains in the ICU on mechanical ventilation. His ventilator settings are assist control rate of 20 FiO2 is 50% tidal volume is 500 PEEP is down to 8 and set of 12. Patient is off norep inephrine, remains on propofol at 60 mcg/kg/m. His peak airway pressure is in the high 20s plateau pressure is 18. His chest x-ray continues to show areas of loculated effusion, and this was confirmed further by doing a CT of the chest today clearly showed multiple areas of loculation and bilateral pneumonia. The fluid from the chest tube is clearly exudative in nature, with relatively low glucose, it could be malignant or could be infectious, I believe it is mostly infectious rather than malignant. Considering the abnormal CT of the chest, the patient may require thoracotomy and decortication otherwise I doubt that the patient will make dramatic improvement as long as we have ongoing loculated effusion. Thoracic surgery is aware of the condition, may have to approach his brother regarding surgical intervention since the patient refused surgery when he presented initially to the hospital. ABG this morning showed a pO2 of 120 pCO2 of 46 pH of 7.45. Electrodes are normal renal profile is normal WBC count is 23.2 hemoglobin is 10. Microbiology remains negative, blood cultures are negative, Gram stain on the pleural effusion showed no organisms. Patient remains sedated, hemodynamically stable, urine output is decent and acceptable. Reevaluated today on 05/21/2019, remains on mechanical ventilation, in the intensive care unit. Patient is sedated, on fall mostly. His ventilator settings are unchanged, tidal volume of 500 assist control rate of 20 FiO2 is 50% PEEP is 8. ABG today showed a pO2 of 99 pCO2 of 44 pH of 7.48. Cultures from the pleural effusion remain negative. WBC count 13.8 hemoglobin is 9.2 lites are normal renal profile is normal. Patient is hemodynamically stable, not requiring any pressors at present. He is on propofol at 60 mcg/kg/m. IV fluid is at 100 mL/h. And he remains on antibiotics in the form of Zosyn and vancomycin. These are given empirically. No specific positive culture has been noted, hence I plan to bronchoscope the patient today and lavage his right lung. Patient was seen by thoracic surgery, considering decortication, but in the meantime trying thrombolytic therapy via chest tube. Reevaluated today again on 05/22/2019, patient remains in the ICU, mechanically ventilated. His ventilator settings are assist control rate of 20 tidal volume of 500 FiO2 of 50%, and PEEP was cut down to 5. Patient remains on propofol at 45 mcg/kg/m, he is also on norepinephrine at 2 mcg/m. Patient is sedated, however my plan today is to hold sedation, and address weaning parameters and possibly weaning trials of possible. Patient will likely be switched to a pressure support of 8 and CPAP, and if he does well on this, may consider weaning and extubation. Labs today were reviewed ABG showed a pO2 of 112 pCO2 44 pH of 7.49 electrolytes and renal profile are normal WBC count is 16.3 hemoglobin is 9.5. Chest x-ray is showing significant improvement compared to previous x-rays, infiltrates in both lungs are improving, but he continues to have areas of loculated pleural effusion on the right side. Chest tube remains in place, and purulent material is being drained, cultures remain negative from the pleural effusion and the cultures are still negative from the BAL. Remains on Levaquin and Zosyn and vancomycin Reevaluated today on 05/23/2019, patient was extubated yesterday, he is presently off mechanical ventilation, and he tolerated the extubation well. He is presently on 6 L nasal cannula. Patient is in no distress, arousable, follows simple instructions, did not sleep much last night, he seems to be a bit sleepy this morning. Overall the patient continues to have significant and steady improvement. Continues to have purulent drainage from the right-sided chest tube. Cultures remained negative, patient remains on broad-spectrum antibiotics, repeat CT of the chest this morning showed small loculated pleural effusions on the right, small left-sided pleural effusion which is new and not loculated. Continues to have leukocytosis with WBC count of 18.3 hemoglobin is 9.9 electrodes are normal renal profile is normal. Reevaluated today on 05/24/2019, patient was extubated 2 days ago, continues to tolerate extubation successfully. Continues to have chest tube in place, significant purulent drainage is noted after thrombolytic injections in the chest tube. Chest x-ray continues to show some areas of loculation, plan to repeat his CT of the chest on Sunday. In the meantime we plan to continue his antibiotics, possibly discontinue his Cespedes catheter, and over the next 2 days possibly transfer the patient out of the ICU to a regular medical floor. Patient is feeling much better, breathing a lot easier, he is on few liters nasal cannula. Continues to have leukocytosis, and that is not unexpected considering his loculated right-sided pleural effusion. Renal functioning is normal electrodes are normal hemoglobin is 10.8. Chest x-ray was reviewed and discussed with the patient. Reevaluated today on 05/25/2019, patient remains off mechanical ventilation, he is on 3 L nasal cannula with O2 saturation is 97%, he is doing extremely well with incentive spirometry achieving over 1700 mL. He is hemodynamically stable, continues to have significant purulent drainage from the right sided chest tube, his chest tube remains on low continuous wall suction apparatus 20 cm. No air leak noted in the chest tube. He had 450 ML of output in the last 24 hours, received 4 doses of alteplase over the last 4 days. Patient is in normal sinus rhythm, he is hemodynamically stable, continues to have a right sided triple lumen catheter in the right subclavian. Considering transferring the patient out of the ICU, however I plan to repeat his CT of the chest tomorrow without contrast, and would have to make a decision whether the patient will require any further treatment for his loculated effusion. Cultures have remained negative wall along including the cultures from the fluid and the cultures from his bronchoscopy/BAL. Objective - Vital Signs Vital signs: Vital Signs Temp 98.1 F 05/25/19 08:00 Pulse 93 05/25/19 11:00 Resp 17 05/25/19 11:00 BP 138/83 05/25/19 11:00 Pulse Ox 96 05/25/19 11:00 Intake & Output 05/24/19 05/25/19 05/25/19 18:59 06:59 18:59 Intake Total 1200 1635 525 Output Total 4370 1525 2200 Balance -3170 110 -1675 Weight 75.2 kg Intake: IV 1200 1015 125 Lactated Ringers 1,000 ml 600 600 50 @ 50 mls/hr IV .Q20H [facility] Rx#:[id number] Levofloxacin 750Mg-D5w 150 65 Pmx 750 mg In Dextrose/ Water 1 150ml.bag @ 100 mls/hr IVPB Q24H [facility] Rx#: [id number] Piperacillin-Tazobactam 3 200 100 75 .375 gm In Sodium Chloride 0.9% 100 ml @ 25 mls/hr IVPB Q8HR [facility] Rx# :[id number] Vancomycin 1,500 mg In 250 250 Sodium Chloride 0.9% 250 ml @ 125 mls/hr IVPB Q8H [facility] Rx#:[id number] Intake, IV Titration 0 250 Amount Norepinephrine 32 mg In 0 Sodium Chloride 0.9% 218 ml @ 0.07 MCG/KG/MIN 2. 136 mls/hr IV .Q24H [facility] Rx#:[id number] Vancomycin 1,500 mg In 250 Sodium Chloride 0.9% 250 ml @ 125 mls/hr IVPB Q8H [facility] Rx#:[id number] Oral 370 400 Output: Chest Tube Drainage 100 50 Chest Tube Right Lateral 100 50 Chest Urine 4270 1525 2150 Other: Voiding Method Indwelling Catheter Indwelling Catheter Urinal # Voids 1 2 # Bowel Movements 1 ABP, PAP, CO, CI - Last Documented Arterial Blood Pressure 172/81 - Exam Physical Exam: 54-year-old on3 L nasal cannula, in no distress Head: Atraumatic, normocephalic. HEENT:[Neck is supple.] [No neck masses.] [No thyromegaly.] [No JVD.] Moist muc ous membranes, Chest: [Symmetrical chest expansion, right-sided chest tube is noted, crackles at the bases, no rhonchi, no wheezes.]right-sided chest tube was noted, 450 ML of drainage noted over the last 24 hours. Cardiac Exam: [Normal S1 and S2, no S3 gallop, no murmur.] Abdomen: [Soft, nontender, no megaly, no rebound, no guarding, normal bowel sounds.] Extremities: [No clubbing, no edema, no cyanosis.] Neurological Exam: Alert, oriented 3, no gross focal neurologic deficits. Psychiatric: normal mood, affect and normal mental status examination. Skin: No rashes. - Labs CBC & Chem 7: 05/25/19 05:11 05/25/19 05:11 Labs: Abnormal Lab Results - Last 24 Hours (Table) 05/24/19 05/24/19 05/25/19 Range/Units 17:02 20:06 05:11 WBC 17.3 H (3.8-10.6) k/uL RBC 3.48 L (4.30-5.90) m/uL Hgb 10.6 L (13.0-17.5) gm/dL Hct 33.9 L (39.0-53.0) % Plt Count 542 H (150-450) k/uL Neutrophils # (Manual) 11.40 H (1.3-7.7) k/uL Monocytes # (Manual) 1.21 H (0-1.0) k/uL Metamyelocytes # (Man) 0.52 H (0) k/uL Myelocytes # (Manual) 0.35 H (0) k/uL Carbon Dioxide (22-30) mmol/L Creatinine (0.66-1.25) mg/dL Glucose (74-99) mg/dL POC Glucose (mg/dL) 147 H 150 H (75-99) mg/dL Calcium (8.4-10.2) mg/dL 05/25/19 05/25/19 Range/Units 05:11 06:45 WBC (3.8-10.6) k/uL RBC (4.30-5.90) m/uL Hgb (13.0-17.5) gm/dL Hct (39.0-53.0) % Plt Count (150-450) k/uL Neutrophils # (Manual) (1.3-7.7) k/uL Monocytes # (Manual) (0-1.0) k/uL Metamyelocytes # (Man) (0) k/uL Myelocytes # (Manual) (0) k/uL Carbon Dioxide 33 H (22-30) mmol/L Creatinine 0.48 L (0.66-1.25) mg/dL Glucose 100 H (74-99) mg/dL POC Glucose (mg/dL) 126 H (75-99) mg/dL Calcium 8.3 L (8.4-10.2) mg/dL Microbiology - Last 24 Hours (Table) 05/21/19 14:32 Gram Stain - Final Bronchial Washings - Right Bronchial Washings Culture - Final Viridiana albicans Viridiana glabrata Assessment and Plan Assessment: Impression: 1 acute hypoxic respiratory failure requiring intubation and mechanical ventilation. This is secondary to multilobar pneumonia and possible complicated right-sided pleural effusion. Status post tube thoracostomy postoperative day #5, patient was successfully extubated on 05/22/2019, 2 sepsis secondary to pneumonia, and loculated pleural effusion may eventually require decortication. or possibly require a pigtail catheter placement, this will be decided upon based on the CT of the chest which I have ordered to be done tomorrow. 3 history of multiple comorbidities including bipolar disorder, schizophrenia, and history of head injury 4 history of compartment syndrome of the left lower extremity 5 underlying COPD severity of which is unclear. 6 chronic and ongoing tobacco dependence syndrome. Recommendation: Continue right-sided chest tube on suction. Continue to record exact I's and O's. Continue antibiotics.empirically, no specific culture was noted to treat sp ecifically. His antibiotics are being addressed by infectious disease/Dr. Paz on the case. Continue bronchodilators and steroids, presently on prednisone at 10 mg twice a day. Continue daily labs and x-rays. Continue GI and DVT prophylaxis. Advance diet as tolerated. Continue alteplase 10 mg per 100 mL of normal saline possibly daily until we see complete resolution of the loculation or may have to consider a pigtail catheter placement. This will be decided upon based on the CT of the chest in the next few days. Continue incentive spirometry Plan to have repeat CT of the chest without contrast in a.m., and this should be reviewed with the thoracic surgeon on the case, and further decisions will have to be made whether the patient will benefit from decortication or possibly more alteplase or possibly pigtail catheter placement. We'll continue to follow. Time with Patient: Less than 30
[2019-05-25] MEDS: DIAZEPAM 5 MG/ML 2 ML INJ IVP PRN ×2 (15:45→21:47)
[2019-05-25] MEDS: BACLOFEN 10 MG TAB PO PRN ×2 (15:45→21:47)
[2019-05-25 16:59] LABS: Glucose,Whole Blood 114 mg/dL (75-99)
[2019-05-25] MEDS: LEVOFLOXACIN 750MG-D5W PMX 750 MG in DEXTROSE/WATER 1 150ML.BAG IVPB SCH (18:54)
--- NOTE | 2019-05-25 19:25 | P.PN ---
Progress Note - Text Progress Note Date: 05/25/19 Interval history: This is a 54-year-old patient of Dr. andino from [place]. Unable to get much of history from the patient as he mumbles then he remains quite. I gather from the ER notes that he apparently is homeless 2. Patient's history include closed head injury bipolar neuropathy COPD. Patient is an active smoker at least 2 packs a day. He did present to the ER stating that he is withdrawing from benzodiazepines and he is out of the same. He does follow with Dr. Rivero from out of the [facility]. Patient is very congested chronic cough so tired and is not able to expectorate. Having fever and tachycardia when initially presented. Was started on IV antibiotics. Pulmonary was consulted. Patient just about wakes up to speak that goes back to sleep. Patient was diagnosed to have severe pneumonia, parapneumonic effusion, sepsis, suspected empyema delirium, COPD exacerbation. Cardiothoracic surgery was consulted with a view to chest tube/thoracotomy On May 19, Dr. Rai put in a chest tube. About 1100 mL of serosanguineous fluid was obtained. Patient intubated. Patient underwent bronchoscopy with bronco alveolar lavage on May 21. Patient extubated on May 22. Patient getting daily alteplase to the chest tube. Today-ICU. Sitting out of bed. Cheerful. Eating better. Breathing stable. Chest tube to low suction. Patient's sister is visiting. Review of systems: Was done for constitutional, cardiovascular, GI, pulmonary. relevant finding as above Active Medications Acetaminophen (Tylenol Tab) 650 mg PO Q6HR PRN PRN Reason: Fever and/ or MILD Pain Last Admin: 05/18/19 17:12 Dose: 650 mg Documented by: Hydrocodone Bitart/Acetaminophen ([place] 5-325) 1 each PO Q6HR PRN PRN Reason: MODERATE Pain Last Admin: 05/25/19 18:53 Dose: 1 each Documented by: Albuterol/Ipratropium (Duoneb 0.5 Mg-3 Mg/3 Ml Soln) 3 ml INHALATION RT-QID [facility] Last Admin: 05/25/19 15:31 Dose: Not Given Documented by: Amlodipine Besylate (Norvasc) 5 mg PO DAILY [facility] Last Admin: 05/25/19 08:24 Dose: Not Given Documented by: Baclofen (Lioresal) 5 mg PO QID PRN PRN Reason: Muscle Spasm Last Admin: 05/25/19 15:45 Dose: 5 mg Documented by: Buspirone HCl (Buspar) 10 mg PO BID [facility] Last Admin: 05/25/19 08:24 Dose: Not Given Documented by: Calcium Carbonate/Glycine (Tums Liquid) 500 mg PO Q6HR PRN PRN Reason: GI Upset Last Admin: 05/25/19 10:42 Dose: 500 mg Documented by: Diazepam (Valium) 5 mg IVP Q4H PRN PRN Reason: Seizures Last Admin: 05/25/19 15:45 Dose: 5 mg Documented by: Doxepin HCl (Sinequan) 150 mg PO HS [facility] Last Admin: 05/24/19 23:57 Dose: 50 mg Documented by: Enoxaparin Sodium (Lovenox) 40 mg SQ DAILY [facility] Last Admin: 05/25/19 08:22 Dose: 40 mg Documented by: Gabapentin (Neurontin) 600 mg PO TID [facility] Last Admin: 05/25/19 15:34 Dose: Not Given Documented by: Levofloxacin 750 mg/ IV (Solution) 150 mls @ 100 mls/hr IVPB Q24H [facility] Stop: 05/29/19 19:31 Last Admin: 05/25/19 18:54 Dose: 100 mls/hr Documented by: Piperacillin Sod/Tazobactam (Sod 3.375 gm/ Sodium Chloride) 100 mls @ 25 mls/hr IVPB Q8HR [facility] Stop: 05/27/19 08:01 Last Admin: 05/25/19 15:37 Dose: 25 mls/hr Documented by: Lactated Ringer's (Lactated Ringers) 1,000 mls @ 50 mls/hr IV .Q20H [facility] Last Admin: 05/25/19 11:23 Dose: 50 mls/hr Documented by: Norepinephrine Bitartrate 32 (mg/ Sodium Chloride) 250 mls @ 2.136 mls/hr IV .Q24H [facility]; Protocol Last Admin: 05/25/19 08:25 Dose: Not Given Documented by: Vancomycin HCl 1,500 mg/ (Sodium Chloride) 250 mls @ 125 mls/hr IVPB Q8H [facility] Last Admin: 05/25/19 13:00 Dose: 125 mls/hr Documented by: Anidulafungin 100 mg/ Sodium (Chloride) 100 mls @ 84 mls/hr IVPB DAILY [facility] Insulin Aspart (Novolog) 0 unit SQ ACHS [facility]; Protocol Last Admin: 05/25/19 17:32 Dose: Not Given Documented by: Lorazepam (Ativan) 1 mg IV Q6HR PRN PRN Reason: Anxiety Last Admin: 05/25/19 18:54 Dose: 1 mg Documented by: Lurasidone HCl (Latuda) 20 mg PO BID-W/MEALS [facility] Last Admin: 05/25/19 16:49 Dose: Not Given Documented by: Miscellaneous Information (Pneumonia Protocol Utilized) 1 each PO ONCE PRN PRN Reason: Per Protocol Naloxone HCl (Narcan) 0.2 mg IV Q2M PRN PRN Reason: Opioid Reversal Nicotine (Habitrol 21mg/24hr Patch) 1 patch TRANSDERM DAILY [facility] Last Admin: 05/25/19 08:22 Dose: 1 patch Documented by: Buprenorphine Hcl [ (Subutex] 8 Mg) 8 mg SUBLINGUAL AC-TID [facility] Last Admin: 05/25/19 17:32 Dose: 8 mg Documented by: Ondansetron HCl (Zofran) 4 mg IVP Q6HR PRN PRN Reason: Nausea And Vomiting Last Admin: 05/24/19 21:03 Dose: 4 mg Documented by: Pantoprazole Sodium (Protonix) 40 mg PO AC-BRKFST [facility] Last Admin: 05/25/19 08:22 Dose: 40 mg Documented by: Prednisone () 10 mg PO BID [facility] Last Admin: 05/25/19 08:22 Dose: 10 mg Documented by: Physical examination: VITAL SIGNS: 97.9, 82, 26, 140-109, 97% room air GENERAL: Sitting up in bed, cheerful EYES: Pupils equal. Conjunctiva pale HEENT: External appearance of nose and ears normal, oral cavity dry.endotracheal tube in place NECK: JVD unable to assess; masses not palpable. HEART: First and second heart sounds are normal; no edema. LUNGS: Respiratory rate increased, diminished breath sounds. right-sided chest tube in place ABDOMEN: Soft, nontender, liver spleen not palpable, no masses palpable. PSYCH: Answering questions. INVESTIGATIONS, reviewed in the clinical context: White count 7.3 hemoglobin 10.6 potassium 4.0 creatinine 0.48 Checks x-ray showing effusion and airspace disease Sputum growing Viridiana albicans other cultures pending CT chest on April 23-small loculated pleural effusion on the right, slightly larger pleural effusions left Previous investigations White count 28.5 hemoglobin 12.1 sodium 127 potassium 4.1. Creatinine 0.81 albumin 3.0 UA negative for leukoesterase and nitrites Chest x-ray film personally reviewed by me-shows dense consolidation of the right side with questionable fluid Computed tomography scan of the chest shows complex lobular take fluid collection in the right extending across the midline diffuse airspace disease in the right with bullous changes in the apex lobes no solid mass reported CT chest-multiple loculated right-sided pleural effusion are again noted. On the sliding interval improvement.. Interval development of coarse infiltrate for the left lung. Assessment: -Bilateral multilobar pneumonia with right parapneumonic effusion with loculated fluid, with sepsis, -Right-sided chest tube placed, initially about 1100 mL of fluid obtained, status post alteplase, daily -Acute hypoxic respiratory failure from above, status post ventilator support -Acute delirium with encephalopathy secondary to underlying sepsis, now resolved -Acute COPD exacerbation in a current smoker, improving -nicotine dependence patient's cigarette smoker -Idiopathic peripheral neuropathy -Bipolar disorder -Hyponatremia -Hypoalbuminemia could be an acute phase reactant -Marfanoid appearance Plan: Continue with Levaquin, Zosyn, vancomycin. Chest tube being followed followed by thoracic surgery.
[2019-05-25] MEDS: DOXEPIN 25 MG CAP PO SCH (20:19)
[2019-05-25 20:34] LABS: Glucose,Whole Blood 135 mg/dL (75-99)
[2019-05-26] MEDS: PIPERACILLIN-TAZOBACTAM 3.375 GM in SODIUM CHLORIDE 0.9% 100 ML IVPB SCH ×3 (00:28→16:22)
[2019-05-26] MEDS: LORazepam 2 MG/ML INJ IV PRN ×4 (01:00→18:12)
[2019-05-26] MEDS: HYDROcodone/APAP 5-325MG 1 EACH TAB PO PRN ×4 (01:00→18:11)
[2019-05-26 05:24] LABS: HGB 10.4 gm/dL (13.0-17.5); Hypochromasia Slight; MCH 29.5 pg (25.0-35.0); MCHC 29.6 g/dL (31.0-37.0); MCV 99.5 fL (80.0-100.0); Macrocytosis Slight; Platelet Count 497 k/uL (150-450); RBC 3.52 m/uL (4.30-5.90); RDW 14.9 % (11.5-15.5)
[2019-05-26] MEDS: VANCOMYCIN 1,500 MG in SODIUM CHLORIDE 0.9% 250 ML IVPB SCH ×3 (05:28→22:58)
[2019-05-26 06:02] LABS: African American GFR (CKD) >90 (>60 ml/min/1.73 sqM); Anion Gap 4 mmol/L; Blood Urea Nitrogen 8 mg/dL (9-20); Calcium 8.3 mg/dL (8.4-10.2); Carbon Dioxide 33 mmol/L (22-30); Chloride 101 mmol/L (98-107); Glucose 107 mg/dL (74-99); Potassium 4.3 mmol/L (3.5-5.1); Sodium 138 mmol/L (137-145)
[2019-05-26 06:35] LABS: Band Neutrophils % 5 %; Eosinophils # (M) 0.32 k/uL (0-0.7); Lymphocytes # (M) 1.28 k/uL (1.0-4.8); Metamyelocytes % 5 %; Monocytes # (M) 0.32 k/uL (0-1.0); Neutrophils % (M) 78 %; Nucleated Red Blood Cells 0 /100 WBC (0-0); Total Cells Counted 200; Toxic Granulation Present
[2019-05-26] MEDS: LACTATED RINGERS 1,000 ML IV SCH (06:39)
[2019-05-26] MEDS: INSULIN ASPART (NovoLOG) 100 UNIT/ML VIAL SQ SCH ×4 (06:39→20:18)
[2019-05-26 06:41] LABS: Glucose,Whole Blood 106 mg/dL (75-99)
[2019-05-26] MEDS: PANTOPRAZOLE 40 MG TABLET PO SCH (06:42)
[2019-05-26] MEDS: LURASIDONE 20 MG TAB PO SCH (06:42)
[2019-05-26] MEDS: IPRATROPIUM-ALBUTEROL 3 ML NEB INHALATION SCH ×4 (08:03→19:13)
--- NOTE | 2019-05-26 08:06 | XR ---
EXAMINATION TYPE: XR chest 1V portable DATE OF EXAM: 05/26/2019 COMPARISON: 05/25/2019 HISTORY: Loculated right pleural effusion/empyema. Follow-up exam. TECHNIQUE: Single frontal view of the chest is obtained. FINDINGS: Masslike consolidation is seen in the right infrahilar airspace. This is not clearly visua lized on the recent exam of 05/25/2019 and therefore rounded atelectasis is possible, loculated compon ent of a prior pleural effusion, pneumonia, or mass that was obscured. Attention on follow-up exam. Right subclavian approach central venous catheter is unchanged as is the right thoracostomy tube. Bib asilar atelectasis is again noted. Left pleural effusion has improved. Trace pleural effusions remain . Lung apices are well aerated. Cardiomediastinal silhouette is nonenlarged and stable. No acute osse ous pathology. IMPRESSION: 1. New rounded density in the right lung base. This could represent loculated portion of the pleural effusion, rounded atelectasis, developing pneumonia, or underlying mass that was obscured. This is no t seen on the recent prior of 05/25/2019. Attention on follow-up exams. 2. Improving left pleural effusion, now trace. Stable trace right pleural effusion.
[2019-05-26] MEDS: NOREPINEPHRINE 32 MG in SODIUM CHLORIDE 0.9% 218 ML IV SCH (09:38)
[2019-05-26] MEDS: ANIDULAFUNGIN 100 MG in SODIUM CHLORIDE 0.9% 100 ML IVPB SCH (09:49)
[2019-05-26] MEDS: NICOTINE 21MG/24HR PATCH TRANSDERM SCH (09:50)
[2019-05-26] MEDS: ENOXAPARIN 40 MG/0.4 ML SYRINGE SQ SCH (09:50)
[2019-05-26] MEDS: busPIRone HCl 10 MG TAB PO SCH ×2 (09:50→22:58)
[2019-05-26] MEDS: GABAPENTIN 300 MG CAP PO SCH ×3 (09:50→22:58)
[2019-05-26] MEDS: predniSONE 10 MG TAB PO SCH ×2 (09:50→22:58)
[2019-05-26] MEDS: DIAZEPAM 5 MG/ML 2 ML INJ IVP PRN ×2 (09:50→22:59)
[2019-05-26] MEDS: amLODIPine 5 MG TAB PO SCH (09:50)
[2019-05-26] MEDS: Buprenorphine Hcl [Subutex] 8 MG SUBLINGUAL SCH ×3 (10:31→18:03)
--- NOTE | 2019-05-26 10:37 | P.PN ---
Subjective Progress Note Date: 05/26/19 Principal diagnosis: Community-acquired bacterial pneumonia, acute respiratory failure with hypoxia and hypercapnia, leukocytosis. Past medical history significant for chronic obstructive pulmonary disease, chronic and ongoing tobacco dependence, history of closed head injury, bipolar disorder, paranoid schizophrenia, narcotic and illicit drug use. Status post day #5 bronchoscopy and bronchoalveolar lavage of the right lower lobe, bronchial alveolar lavage of the left lower lobe and lingula and suctioning of mucous plugging in both lower lobes performed by Dr. Harris. Status post day #7 intubation with mechanical ventilator support, subsequently extubated on 05/22/2018 at 12:17 PM. Right thoracostomy chest tube placement placed by Dr. Rai. Right subclavian triple-lumen central line placement by Dr. Rai. The patient is resting in bed in the intensive care unit. He is in no acute distress. He currently denies any complaints of pain or shortness of breath. Oxygen saturations 95% on room air. He is achieving 2000 mL on his incentive spirometry with encouragement. He remains hemodynamically stable and is currently on no inotropic or pressor support. He has been afebrile in the last 24 hours. His lab results this morning show a WBC count 16.0, hemoglobin 10.4, platelets 497, BUN 8, and creatinine 0.44. He is alert and oriented 3. He remains with a right pleural chest tube in place to low continuous wall suction -20 cm H2O. No air leak is present. Draining thin serous's note for probably about 40 minutes with thick whitish sediment drainage. 150 mL output in the last 24 hours. He has received 5 doses of alteplase 10 mg/100 mL of normal saline over the last 5 days. Bedside telemetry showing normal sinus rhythm heart rate 89 and current blood pressure is 110/75 30 V chair. He has a right subclavian triple-lumen in place and is functioning. Objective - Vital Signs Vital signs: Vital Signs Temp 98.8 F 05/26/19 08:00 Pulse 81 05/26/19 09:00 Resp 15 05/26/19 09:00 BP 110/75 05/26/19 09:00 Pulse Ox 95 05/26/19 09:00 Intake & Output 05/25/19 05/26/19 05/26/19 18:59 06:59 18:59 Intake Total 1875 2450 100 Output Total 6775 2180 1300 Balance -4900 270 -1200 Weight 76.6 kg Intake: IV 575 1050 100 Lactated Ringers 1,000 ml 200 600 100 @ 50 mls/hr IV .Q20H [facility] Rx#:[id number] Levofloxacin 750Mg-D5w 100 Pmx 750 mg In Dextrose/ Water 1 150ml.bag @ 100 mls/hr IVPB Q24H [facility] Rx#: [id number] Piperacillin-Tazobactam 3 125 100 .375 gm In Sodium Chloride 0.9% 100 ml @ 25 mls/hr IVPB Q8HR [facility] Rx# :[id number] Vancomycin 1,500 mg In 250 250 Sodium Chloride 0.9% 250 ml @ 125 mls/hr IVPB Q8H [facility] Rx#:[id number] Intake, IV Titration 250 0 Amount Norepinephrine 32 mg In 0 Sodium Chloride 0.9% 218 ml @ 0.07 MCG/KG/MIN 2. 136 mls/hr IV .Q24H [facility] Rx#:[id number] Vancomycin 1,500 mg In 250 Sodium Chloride 0.9% 250 ml @ 125 mls/hr IVPB Q8H [facility] Rx#:[id number] Oral 1300 1150 Output: Chest Tube Drainage 175 20 Chest Tube Right Lateral 175 20 Chest Urine 6600 2160 1100 Urine/Stool Mix 200 Other: Voiding Method Urinal Urinal # Voids 2 1 # Bowel Movements 1 ABP, PAP, CO, CI - Last Documented Arterial Blood Pressure 172/81 - Constitutional General appearance: Present: cooperative, no acute distress, thin - Respiratory Details: Lung sounds essentially clear throughout, diminished to his bilateral bases. Respirations are symmetrical and nonlabored. No wheezes, rhonchi or crackles present. Oxygen saturation is 95% on room air. Achieving 2000 mL on his incentive spirometry. Right pleural chest tube remains in place to low continuous wall suction -20 cm H2O. No air leak is present. Draining thin serous drainage with whitish sediment present. 150 mL output in the last 24 hours. - Cardiovascular Details: Regular rhythm and rate. S1 and S2 present, negative for S3, gallop or murmur. No edema present. Knee-high sequential compression devices in place to his bilateral lower extremities. - Gastrointestinal Gastrointestinal Comment(s): Abdomen is soft, nontender and nondistended. Active bowel sounds present in all 4 abdominal quadrants. No guarding or rigidity. No organomegaly appreciated. Tolerating oral intake. - Genitourinary Genitourinary Comment(s): Voiding clear yellow urine. - Integumentary Integumentary Comment(s): Skin is warm and dry. No clubbing or cyanosis is present. Right chest tube dressing is clean, dry and intact. - Neurologic Neurologic Comment(s): No focal deficits. Neurologic: Present: CNII-XII intact - Musculoskeletal Musculoskeletal: Present: generalized weakness, strength equal bilaterally - Psychiatric Psychiatric: Present: A&O x's 3, appropriate affect, intact judgment & insight - Allied health notes Allied health notes reviewed: nursing - Labs CBC & Chem 7: 05/26/19 04:57 05/26/19 04:57 Labs: Abnormal Lab Results - Last 24 Hours (Table) 05/25/19 05/25/19 05/26/19 Range/Units 16:56 20:08 04:57 WBC 16.0 H (3.8-10.6) k/uL RBC 3.52 L (4.30-5.90) m/uL Hgb 10.4 L (13.0-17.5) gm/dL Hct 35.0 L (39.0-53.0) % MCHC 29.6 L (31.0-37.0) g/dL Plt Count 497 H (150-450) k/uL Neutrophils # (Manual) 13.20 H (1.3-7.7) k/uL Metamyelocytes # (Man) 0.80 H (0) k/uL Carbon Dioxide (22-30) mmol/L BUN (9-20) mg/dL Creatinine (0.66-1.25) mg/dL Glucose (74-99) mg/dL POC Glucose (mg/dL) 114 H 135 H (75-99) mg/dL Calcium (8.4-10.2) mg/dL 05/26/19 05/26/19 Range/Units 04:57 06:38 WBC (3.8-10.6) k/uL RBC (4.30-5.90) m/uL Hgb (13.0-17.5) gm/dL Hct (39.0-53.0) % MCHC (31.0-37.0) g/dL Plt Count (150-450) k/uL Neutrophils # (Manual) (1.3-7.7) k/uL Metamyelocytes # (Man) (0) k/uL Carbon Dioxide 33 H (22-30) mmol/L BUN 8 L (9-20) mg/dL Creatinine 0.44 L (0.66-1.25) mg/dL Glucose 107 H (74-99) mg/dL POC Glucose (mg/dL) 106 H (75-99) mg/dL Calcium 8.3 L (8.4-10.2) mg/dL - Imaging and Cardiology Chest x-ray: report reviewed, image reviewed Assessment and Plan Assessment: 1. Hypoxic respiratory failure, post intubation mechanical ventilation 2. Right loculated pleural effusion, status post right-sided chest tube placement 3. Sepsis secondary to multilobar community-acquired pneumonia 4. Leukocytosis, secondary to above 5. Hypotension requiring norepinephrine support 6. Chronic and ongoing tobacco dependence 7. Chronic obstructive pulmonary disease 8. Paranoid schizophrenia 9. Bipolar disorder 10. History of closed head injury 11. History of compartment syndrome of the left lower extremity Plan: 1. Keep right-sided pleural chest tube to low continuous wall suction -20 cm H2O. continue to record accurate I&O. We will keep his right pleural chest tube in place for another 24 hours and anticipate removal of right pleural chest tube tomorrow 05/27/2019. 2. Bronchodilators and corticosteroids management per pulmonary and critical care management. 3. Antibiotic management per infectious disease recommendations. 4. Continue to monitor daily labs and chest x-rays. 5. DVT and GI prophylaxis. 6. Medical management and other comorbidities management per primary care service. 7. Nutrition management per dietitian's recommendations. 8. No alteplase place treatments today. 9. Encourage use of his incentive spirometry every hour while awake. 10. More recommendations to follow based on patient's clinical course. Time with Patient: Greater than 30
--- NOTE | 2019-05-26 10:37 | PN ---
PROGRESS NOTE PULMONARY/CRITICAL CARE PROGRESS NOTE DATE OF SERVICE: May 26, 2019 This is a patient who was admitted to the hospital on May 16. He came in with pneumonia and complicated right-sided pleural effusion. He is status post chest tube placement and tPA administration. The patient did develop acute respiratory failure which required intubation and mechanical ventilation. The patient was extubated successfully on May 22. In addition, the patient presented with sepsis secondary to pneumonia and loculated right-sided pleural effusion, status post chest tube placement, bipolar disorder, schizophrenia, chronic, closed head injury, compartment syndrome, COPD, and chronic and ongoing tobacco dependence syndrome. The patient also apparently has ADHD and bipolar disorder as mentioned. Currently, he is not receiving any supplemental oxygen. His IV is lactated Ringer's at 50 mL an hour. We spoke to Cardiothoracic about this patient. They are going to remove the chest tube tomorrow. Over the last 24 hours, he has had only 150 mL out from the chest tube. I do not believe he needs another CAT scan at this time. He is clinically doing well. His chest x-ray is improved. He has only had 20 mL of output over the last 8 hours. Today, he is sitting up in bed eating breakfast. He has no complaints. PHYSICAL EXAMINATION: VITAL SIGNS: Current vital signs are reviewed. Temperature is 98.8, heart rate 80, respiratory rate 15, blood pressure 110/75, mean 86, saturations on room air 95% to 96%. GENERAL: Appears in no acute distress. HEENT: Examination is grossly unremarkable. Mucous membranes are moist. No oral lesions. No supplemental oxygen. NECK: Supple. Full range of motion. No adenopathy or thyromegaly. Neck veins are flat. CARDIOVASCULAR: Examination reveals regular rhythm and rate. Heart rate 81 beats per minute. S1, S2 normal. No S3, S4, or murmur. LUNGS: Reveal mostly clear breath sounds apically. The breath sounds on the right base are decreased. Chest tube in place. A few scattered rhonchi noted. No wheezes or crackles. ABDOMEN: Soft. Bowel sounds are heard. EXTREMITIES: Are intact. No cyanosis, clubbing, or edema. SKIN: Without rash. NEUROLOGIC: Examination is brief but nonfocal. LABORATORY DATA: Laboratory data reviewed. White count 16, hemoglobin 10.4, hematocrit 35, platelet count 497,000. Sodium, potassium, chloride normal. CO2 is 33. Anion gap is 4. BUN and creatinine were 8 and 0.44. Calcium 8.3. C. difficile studies are negative. Microbiologic studies show bronch washings positive for Viridiana albicans and Viridiana glabrata on the 21 of May and sputum on May 19, being positive for Viridiana albicans. Not clear to me that these are actually pathogens in this patient. MEDICATIONS: Current medications are reviewed. His antibiotics include vancomycin and Zosyn. He is also on the Eraxis as an antifungal. The rest of his medications are primarily for his bipolar disorder and his other psychiatric issues. ASSESSMENT: 1. Acute hypoxemic respiratory failure which required intubation and mechanical ventilation with successful extubation on May 22 secondary to multilobar pneumonia on the right side and a complicated right-sided effusion/empyema, status post chest tube placement, postoperative day #6. 2. Sepsis secondary to pneumonia, improved. 3. History of bipolar disorder. 4. History of schizophrenia. 5. History of closed head injury. 6. History of compartment syndrome, left lower extremity. 7. History of possible underlying chronic obstructive pulmonary disease. 8. Chronic and ongoing tobacco dependence. 9. Attention deficit hyperactivity disorder. PLAN: Currently, the patient is doing relatively well. He is on appropriate antibiotics and antifungals. We will continue to follow. Chest tube output is significantly decreased. Cardiothoracic will remove that tomorrow. No additional tPA today. No CT scan today. Additional recommendations and suggestions are forthcoming. Prognosis is guarded. MMODL / IJN: [id number] /
[2019-05-26 12:00] LABS: Glucose,Whole Blood 116 mg/dL (75-99)
--- NOTE | 2019-05-26 14:47 | P.PN ---
Progress Note - Text Progress Note Date: 05/26/19 Psychiatric progress note Interval History: Patient was seen for psychiatric follow-up with regards to patient's bipolar disorder. Patient has been admitted to the hospital for community-acquired pneumonia with acute respiratory failure along with having a history of closed head injury polysubstance use and a chronic history of bipolar disorder which she follows up at [facility]. As per nurse taking care of the patient, states that patient has been doing well however has been singing at times and today has been taking his medications. Patient was seen at the bedside and was cheerful and communicative with documentation writer. No pressured speech no flight of ideas over patient was somewhat tangential/circumstantial. Patient spoke about his mental health and his bipolar and how the medications are helping him stay calmer and allowing him to focus. He spoke about his medical condition at this time and states that his chest tube is causing him pain however his respiratory status has improved significantly. Patient has some insight and improved judgment and states that he wants to follow up with [facility] when he is discharged. At this time he denies any depression denies any anxiety. He states that he is having trouble regulating his sleep cycle and states that he sleeps approximately 3-4 hours during the day and 3-4 hours at night. At this time patient denies any suicidal or homical ideations, intent or plan. Patient denies any auditory, visual hallucinations and denies any paranoia or delusions. Patient denies any side effects from the medications and has been compliant with meds. Mental Status Exam: General Appearance: Patient appears to be stated age is alert, pleasant, and cooperative. Patient has marginal hygiene and grooming. Has fair eye contact. Behavior: Patient is calmly lying in bed without any agitated behavior. Speech: Patient's speech is fluent and nonpressured. Mood/Affect: Mood is improving, affect is congruent and constricted. Suicidality/Homicidality: Patient denies having any suicidal or homicidal ideation intent or plan. Perceptions: Patient denies any auditory or visual hallucinations. Though content/process: There is no evidence of any delusional thought content and thought process is tangential/circumstantial Memory and concentration: AOX3, grossly intact for the purposes of this session Judgment and insight: fair Assessment Bipolar disorder unspecified Plan: -Patient continues to not meet [facility]. -Medications: Increased Latuda to 60 mg daily at bedtime with dinner starting tomorrow for psychosis/mood stabilization. Continue on doxepin 150 mg daily at bedtime for sleep/mood, BuSpar 10 mg twice a day for anxiety. Added melatonin 5 mg daily at bedtime for sleep. -Mobile crisis to touch base with patient after patient is discharged from the medical floors. -Patient apparently is connected with [facility], will confirm this with Hospital [facility] liaison to ensure patient has a follow-up appointment after discharge. -I spoke with patient about court orders for mental health treatment and how that may affect gun ownership. At this time patient says that he does have a gun however has disabled it and it is locked away. -Psychiatry will sign off at this point. Please contact with any questions.
[2019-05-26 16:28] LABS: Glucose,Whole Blood 123 mg/dL (75-99)
--- NOTE | 2019-05-26 16:37 | P.PN ---
Progress Note - Text Progress Note Date: 05/26/19 Interval history: This is a 54-year-old patient of Dr. andino from [place]. Unable to get much of history from the patient as he mumbles then he remains quite. I gather from the ER notes that he apparently is homeless 2. Patient's history include closed head injury bipolar neuropathy COPD. Patient is an active smoker at least 2 packs a day. He did present to the ER stating that he is withdrawing from benzodiazepines and he is out of the same. He does follow with Dr. Rivero from out of the [facility]. Patient is very congested chronic cough so tired and is not able to expectorate. Having fever and tachycardia when initially presented. Was started on IV antibiotics. Pulmonary was consulted. Patient just about wakes up to speak that goes back to sleep. Patient was diagnosed to have severe pneumonia, parapneumonic effusion, sepsis, suspected empyema delirium, COPD exacerbation. Cardiothoracic surgery was consulted with a view to chest tube/thoracotomy On May 19, Dr. Rai put in a chest tube. About 1100 mL of serosanguineous fluid was obtained. Patient intubated. Patient underwent bronchoscopy with bronco alveolar lavage on May 21. Patient extubated on May 22. Patient getting daily alteplase to the chest tube. Today-ICU. Sitting on the bed. Rather cheerful. 8 on his food. Breathing much improved. Right chest wall chest tube connected to suction. Review of systems: Was done for constitutional, cardiovascular, GI, pulmonary. relevant finding as above Active Medications Acetaminophen (Tylenol Tab) 650 mg PO Q6HR PRN PRN Reason: Fever and/ or MILD Pain Last Admin: 05/18/19 17:12 Dose: 650 mg Documented by: Hydrocodone Bitart/Acetaminophen (Sumner 5-325) 1 each PO Q6HR PRN PRN Reason: MODERATE Pain Last Admin: 05/26/19 13:04 Dose: 1 each Documented by: Albuterol/Ipratropium (Duoneb 0.5 Mg-3 Mg/3 Ml Soln) 3 ml INHALATION RT-QID [facility] Last Admin: 05/26/19 15:22 Dose: Not Given Documented by: Amlodipine Besylate (Norvasc) 5 mg PO DAILY [facility] Last Admin: 05/26/19 09:50 Dose: 5 mg Documented by: Baclofen (Lioresal) 5 mg PO QID PRN PRN Reason: Muscle Spasm Last Admin: 05/25/19 21:47 Dose: 5 mg Documented by: Buspirone HCl (Buspar) 10 mg PO BID [facility] Last Admin: 05/26/19 09:50 Dose: 10 mg Documented by: Calcium Carbonate/Glycine (Tums Liquid) 500 mg PO Q6HR PRN PRN Reason: GI Upset Last Admin: 05/25/19 10:42 Dose: 500 mg Documented by: Diazepam (Valium) 5 mg IVP Q4H PRN PRN Reason: Seizures Last Admin: 05/26/19 09:50 Dose: 5 mg Documented by: Doxepin HCl (Sinequan) 150 mg PO HS [facility] Last Admin: 05/25/19 20:19 Dose: Not Given Documented by: Enoxaparin Sodium (Lovenox) 40 mg SQ DAILY [facility] Last Admin: 05/26/19 09:50 Dose: 40 mg Documented by: Gabapentin (Neurontin) 600 mg PO TID [facility] Last Admin: 05/26/19 16:22 Dose: 600 mg Documented by: Piperacillin Sod/Tazobactam (Sod 3.375 gm/ Sodium Chloride) 100 mls @ 25 mls/hr IVPB Q8HR [facility] Stop: 05/27/19 08:01 Last Admin: 05/26/19 16:22 Dose: 25 mls/hr Documented by: Lactated Ringer's (Lactated Ringers) 1,000 mls @ 50 mls/hr IV .Q20H [facility] Last Admin: 05/26/19 06:39 Dose: 50 mls/hr Documented by: Norepinephrine Bitartrate 32 (mg/ Sodium Chloride) 250 mls @ 2.136 mls/hr IV .Q24H [facility]; Protocol Last Admin: 05/26/19 09:38 Dose: Not Given Documented by: Vancomycin HCl 1,500 mg/ (Sodium Chloride) 250 mls @ 125 mls/hr IVPB Q8H [facility] Last Admin: 05/26/19 14:30 Dose: 125 mls/hr Documented by: Anidulafungin 100 mg/ Sodium (Chloride) 100 mls @ 84 mls/hr IVPB DAILY [facility] Last Admin: 05/26/19 09:49 Dose: 84 mls/hr Documented by: Insulin Aspart (Novolog) 0 unit SQ ACHS [facility]; Protocol Last Admin: 05/26/19 16:25 Dose: Not Given Documented by: Levofloxacin (Levaquin) 750 mg PO Q24H [facility] Stop: 05/29/19 19:31 Lorazepam (Ativan) 1 mg IV Q6HR PRN PRN Reason: Anxiety Last Admin: 05/26/19 13:05 Dose: 1 mg Documented by: Lurasidone HCl (Latuda) 60 mg PO [facility] Lurasidone HCl (Latuda) 40 mg PO ONCE ONE Stop: 05/26/19 18:01 Melatonin (Melatonin) 5 mg PO [facility] Miscellaneous Information (Pneumonia Protocol Utilized) 1 each PO ONCE PRN PRN Reason: Per Protocol Miscellaneous Information (Vancomycin Trough Due) 1 each MISCELLANE ONCE ONE Stop: 05/27/19 05:01 Naloxone HCl (Narcan) 0.2 mg IV Q2M PRN PRN Reason: Opioid Reversal Nicotine (Habitrol 21mg/24hr Patch) 1 patch TRANSDERM DAILY [facility] Last Admin: 05/26/19 09:50 Dose: 1 patch Documented by: Buprenorphine Hcl [ (Subutex] 8 Mg) 8 mg SUBLINGUAL AC-TID [facility] Last Admin: 05/26/19 15:45 Dose: Not Given Documented by: Ondansetron HCl (Zofran) 4 mg IVP Q6HR PRN PRN Reason: Nausea And Vomiting Last Admin: 05/24/19 21:03 Dose: 4 mg Documented by: Pantoprazole Sodium (Protonix) 40 mg PO AC-BRKFST [facility] Last Admin: 05/26/19 06:42 Dose: 40 mg Documented by: Prednisone () 10 mg PO BID [facility] Last Admin: 05/26/19 09:50 Dose: 10 mg Documented by: Physical examination: VITAL SIGNS: 98.7, 105, 23, 11 6/76, 93% room air GENERAL: Sitting up in bed, cheerful EYES: Pupils equal. Conjunctiva pale HEENT: External appearance of nose and ears normal, oral cavity dry.endotracheal tube in place NECK: JVD unable to assess; masses not palpable. HEART: First and second heart sounds are normal; no edema. LUNGS: Respiratory rate increased, diminished breath sounds. right-sided chest tube in place ABDOMEN: Soft, nontender, liver spleen not palpable, no masses palpable. PSYCH: Q 3, motor affect normal. INVESTIGATIONS, reviewed in the clinical context: White count 16 hemoglobin 10.4 potassium 4.3 creatinine 0.44 Checks x-ray personally reviewed by me-showing right-sided infiltrate, greatly improved otherwise Sputum growing Viridiana albicans other cultures pending CT chest on April 23-small loculated pleural effusion on the right, slightly larger pleural effusions left Previous investigations White count 28.5 hemoglobin 12.1 sodium 127 potassium 4.1. Creatinine 0.81 albumin 3.0 UA negative for leukoesterase and nitrites Chest x-ray film personally reviewed by me-shows dense consolidation of the right side with questionable fluid Computed tomography scan of the chest shows complex lobular take fluid collection in the right extending across the midline diffuse airspace disease in the right with bullous changes in the apex lobes no solid mass reported CT chest-multiple loculated right-sided pleural effusion are again noted. On the sliding interval improvement.. Interval development of coarse infiltrate for the left lung. Assessment: -Bilateral multilobar pneumonia with right parapneumonic effusion with loculated fluid, with sepsis, clinically and radiologically much improved -Right-sided chest tube placed, initially about 1100 mL of fluid obtained, status post alteplase, daily -Acute hypoxic respiratory failure from above, status post ventilator support, not doing well on room air -Acute delirium with encephalopathy secondary to underlying sepsis, now resolved -Acute COPD exacerbation in a current smoker, improving -nicotine dependence patient's cigarette smoker -Idiopathic peripheral neuropathy -Bipolar disorder -Hyponatremia, improved -Hypoalbuminemia could be an acute phase reactant -Marfanoid appearance Plan: Patient on broad-spectrum antibiotics. Feeling much better. Greatly improved. Hopefully chest tube will be removed tomorrow. Care was discussed with the patient. We'll discuss discharge antibiotics with Dr. Paz.
[2019-05-26] MEDS ORDERED: LURASIDONE 20 MG TAB PO ONE (18:00)
[2019-05-26] MEDS: LEVOFLOXACIN 750 MG TAB PO SCH (18:03)
[2019-05-26 20:28] LABS: Glucose,Whole Blood 154 mg/dL (75-99)
[2019-05-26] MEDS: MELATONIN 5 MG TABLET PO SCH (22:58)
--- NOTE | 2019-05-26 23:11 | P.PN ---
Subjective Progress Note Date: 05/26/19 54-year-old male who is a long-standing history of bipolar disorder schizophrenia and a closed head injury presents to the emergency center with increasing shortness of breath. It is noted that before his intubation the patient was a poor historian and he was concerned that he was having withdrawal from benzodiazepine therapy. At admission his chest x-ray was abnormal with a right pleural effusion and right lower lobe consolidation. He had evidence of fever and leukocytosis as well as pleuritic chest pain. He was tachycardic and was resuscitated and treated with antibiotic therapy of Zosyn and Levaquin. The patient's status has declined. He developed respiratory failure requiring i ntubation sedation and mechanical ventilation. He also had a chest tube applied to the right pleural effusion. His required vasopressor therapy that is also being titrated. His oxygenation is improved he is on a lower FiO2 but still a PEEP of 12. He is on propofol and very comfortable. 05/20/2018 the patient is remaining intubated sedated and mechanically ventilated. He is otherwise quite comfortable. We'll rule him for a follow-up computed tomography scan to evaluate his pulmonary status and pneumonia. His temperature was 1013 is now 98.2. 05/22/2019 patient is more comfortable today. He has had improvement of his status and is currently on CPAP with plans for extubation in the near future. He is currently quite comfortable with no acute complaint. He is afebrile and his writing on the pad of his desire to be extubated 05/23/2019 .He is now extubated and is comfortable. He is complaining of pain and requesting narcotic pain medications although he is on eversion of Suboxone. Other than this he relates it is improving. Some discomfort in the chest tube site. Shortness of breath is improved. No further fevers or chills. Shortness of breath is improved. He is eating without any difficulty, no nausea or emesis 05/25/2016Patient is sitting upright feeling well eating his breakfast without difficulties. He scan is planned for tomorrow determine when his tube can be removed. Of note fluconazole had been added. 05/26/2019 patient is further improved. Watching football and is quite excited about the game. Pain is under better control. Looks forward to his chest tube removal tomorrow. Objective - Vital Signs Vital signs: Vital Signs Temp 98.5 F 05/26/19 20:00 Pulse 121 H 05/26/19 20:00 Resp 19 05/26/19 20:00 BP 140/98 05/26/19 20:00 Pulse Ox 95 05/26/19 20:00 Intake & Output 05/26/19 05/26/19 05/27/19 06:59 18:59 06:59 Intake Total 2450 900 250 Output Total 2180 3910 0 Balance 270 -3010 250 Weight 76.6 kg Intake: IV 1050 800 50 Lactated Ringers 1,000 ml 600 600 50 @ 50 mls/hr IV .Q20H [facility] Rx#:[id number] Levofloxacin 750Mg-D5w 100 Pmx 750 mg In Dextrose/ Water 1 150ml.bag @ 100 mls/hr IVPB Q24H [facility] Rx#: [id number] Piperacillin-Tazobactam 3 100 200 .375 gm In Sodium Chloride 0.9% 100 ml @ 25 mls/hr IVPB Q8HR [facility] Rx# :[id number] Vancomycin 1,500 mg In 250 Sodium Chloride 0.9% 250 ml @ 125 mls/hr IVPB Q8H [facility] Rx#:[id number] Intake, IV Titration 250 100 Amount Anidulafungin 100 mg In 100 Sodium Chloride 0.9% 100 ml @ 84 mls/hr IVPB DAILY [facility] Rx#:[id number] Norepinephrine 32 mg In 0 Sodium Chloride 0.9% 218 ml @ 0.07 MCG/KG/MIN 2. 136 mls/hr IV .Q24H [facility] Rx#:[id number] Vancomycin 1,500 mg In 250 Sodium Chloride 0.9% 250 ml @ 125 mls/hr IVPB Q8H [facility] Rx#:[id number] Oral 1150 200 Output: Chest Tube Drainage 20 60 Chest Tube Right Lateral 20 60 Chest Urine 2160 3650 0 Urine/Stool Mix 200 Other: Voiding Method Urinal Urinal Urinal # Voids 1 ABP, PAP, CO, CI - Last Documented Arterial Blood Pressure 172/81 - Exam 54 -year-old male extubated comfortable sitting upright and eating HEENT: Anicteric conjunctiva are pink and moist nasal mucosa grossly intact without significant lesions, there is no thrush Around the endotracheal tube, he is edentulous Neck: The neck is supple without significant lymphadenopathy or thyromegaly. Lungs:Symmetrical bilateral air entry decreased breath sounds at bilateral bases bronchial sounds right base Heart: Regular rate and rhythm with an audible S1-S2, no S3 no S4. There is no significant murmur click or rub, PMI was nondisplaced. Abdomen: Positive bowel sounds soft and nontender without palpable masses or organomegaly. There was no guarding or rebound. Extremities: The upper extremities have excellent pulses they are symmetric, no significant petechiae or telangiectasia. No splinter hemorrhages were noted. The lower extremities are free from significant edema. The peripheral pulses were 2+ and symmetric. Neuro: Awake alert oriented person place and time - Labs CBC & Chem 7: 05/26/19 04:57 05/26/19 04:57 Labs: Abnormal Lab Results - Last 24 Hours (Table) 05/26/19 05/26/19 05/26/19 Range/Units 04:57 04:57 06:38 WBC 16.0 H (3.8-10.6) k/uL RBC 3.52 L (4.30-5.90) m/uL Hgb 10.4 L (13.0-17.5) gm/dL Hct 35.0 L (39.0-53.0) % MCHC 29.6 L (31.0-37.0) g/dL Plt Count 497 H (150-450) k/uL Neutrophils # (Manual) 13.20 H (1.3-7.7) k/uL Metamyelocytes # (Man) 0.80 H (0) k/uL Carbon Dioxide 33 H (22-30) mmol/L BUN 8 L (9-20) mg/dL Creatinine 0.44 L (0.66-1.25) mg/dL Glucose 107 H (74-99) mg/dL POC Glucose (mg/dL) 106 H (75-99) mg/dL Calcium 8.3 L (8.4-10.2) mg/dL 05/26/19 05/26/19 05/26/19 Range/Units 11:45 16:25 20:12 WBC (3.8-10.6) k/uL RBC (4.30-5.90) m/uL Hgb (13.0-17.5) gm/dL Hct (39.0-53.0) % MCHC (31.0-37.0) g/dL Plt Count (150-450) k/uL Neutrophils # (Manual) (1.3-7.7) k/uL Metamyelocytes # (Man) (0) k/uL Carbon Dioxide (22-30) mmol/L BUN (9-20) mg/dL Creatinine (0.66-1.25) mg/dL Glucose (74-99) mg/dL POC Glucose (mg/dL) 116 H 123 H 154 H (75-99) mg/dL Calcium (8.4-10.2) mg/dL - Imaging and Cardiology Abdominal x-ray: report reviewed Assessment and Plan (1) Community acquired bacterial pneumonia Narrative/Plan: 54-year-old male it is a complex past medical history with his underlying mental illness and history of head trauma with significant compromise status. Presents to hospital with significant shortness of breath but evidence of the extensive pleural effusion to the right chest and the pneumonia. Chest tube is in place and is receiving appropriate antibiotic therapy this time with Zosyn and Levaquin with his intensive care unit stay and concerns for potential gram-negative pneumonia as well as aspiration. Pleural fluid has been sent as a sputum culture to further help direct antibiotic therapy. The patient has had some improvement of his status with decreasing oxygen requirements throughout the day but still remains on PEEP of 12. Hemodynamically he is stable to improved requiring less vasopressor therapy. Adequate urinary output is noted. He has an extensive leukocytosis directly related to his extensive pneumonia and possible empyema. 05/20/2019 the patient is requiring ongoing mechanical ventilation. Cultures are pending from his sputum as well as the drainage from the pleural effusion. Continue current antibiotic therapy. Continue with supportive care. Is noted his PEEP did decrease. Vasopressor therapy. Cultures to further help direct antibiotic therapy. 05/22/2019 the patient is having improvement will likely be extubated today. He is doing well on current antibiotic therapy off of vasopressor therapy and improving pulmonary status. Cultures are pending responding well to current antibiotic therapy cultures will further direct The time of discharge AFB negative so far fungal culture negative so far. 05/23/2019 the patient has had significant improvement that he is now extubated sitting upright eating well and having very little shortness of breath. He is having some pain from the chest tube site other than that he is doing quite well. The culture data is negative so far with no evidence of any significant fungal or acid-fast bacilli antibiotic therapy as he improves will be further directed his cultures become available. 05/25/2019 patient is having some improvement thoracic surgery is following. Chest tube is in place. Follow-up CAT scan plan for tomorrow determine if the tube can be removed. Of note Viridiana glabrata has been isolated will change fluconazole to Eraxis for now continue ongoing supportive care and will deal with the primary service and discharge planners is to the overall discharge plan and what appropriate antimicrobial therapy will constitute. 05/26/2019 has improved chest tube removal tomorrow is planned,cultures are negative with only a few colonies of Viridiana isolated. Oral therapy planed. Current Visit: Yes Status: Acute Code(s): J15.9 - UNSPECIFIED BACTERIAL PNEUMONIA SNOMED Code(s): 022263805 (2) Acute respiratory failure with hypoxia and hypercapnia Current Visit: Yes Status: Acute Code(s): J96.01 - ACUTE RESPIRATORY FAILURE WITH HYPOXIA; J96.02 - ACUTE RESPIRATORY FAILURE WITH HYPERCAPNIA SNOMED Code(s): 460716897 (3) Leukocytosis Current Visit: Yes Status: Acute Code(s): D72.829 - ELEVATED WHITE BLOOD CELL COUNT, UNSPECIFIED SNOMED Code(s): 900979036
[2019-05-27] MEDS: HYDROcodone/APAP 5-325MG 1 EACH TAB PO PRN ×4 (00:07→18:11)
[2019-05-27] MEDS: LORazepam 2 MG/ML INJ IV PRN ×4 (00:07→18:12)
[2019-05-27] MEDS: DOXEPIN 25 MG CAP PO SCH ×2 (00:13→22:03)
[2019-05-27] MEDS: PIPERACILLIN-TAZOBACTAM 3.375 GM in SODIUM CHLORIDE 0.9% 100 ML IVPB SCH ×2 (02:42→09:45)
[2019-05-27] MEDS ORDERED: VANCOMYCIN TROUGH DUE 1 EACH MISC MISCELLANE ONE (05:00)
[2019-05-27] MEDS: LACTATED RINGERS 1,000 ML IV SCH ×2 (05:41→23:15)
[2019-05-27] MEDS: VANCOMYCIN 1,500 MG in SODIUM CHLORIDE 0.9% 250 ML IVPB SCH ×3 (06:53→22:08)
[2019-05-27 07:07] LABS: Glucose,Whole Blood 119 mg/dL (75-99)
[2019-05-27] MEDS: IPRATROPIUM-ALBUTEROL 3 ML NEB INHALATION SCH ×4 (08:04→19:29)
[2019-05-27] MEDS: Buprenorphine Hcl [Subutex] 8 MG SUBLINGUAL SCH ×3 (08:12→16:54)
[2019-05-27] MEDS: amLODIPine 5 MG TAB PO SCH (08:13)
[2019-05-27] MEDS: GABAPENTIN 300 MG CAP PO SCH ×3 (08:14→22:03)
[2019-05-27] MEDS: busPIRone HCl 10 MG TAB PO SCH ×2 (08:14→21:00)
[2019-05-27] MEDS: predniSONE 10 MG TAB PO SCH ×2 (08:14→21:02)
[2019-05-27] MEDS: NICOTINE 21MG/24HR PATCH TRANSDERM SCH (08:14)
[2019-05-27] MEDS: PANTOPRAZOLE 40 MG TABLET PO SCH (08:14)
[2019-05-27] MEDS: ENOXAPARIN 40 MG/0.4 ML SYRINGE SQ SCH (08:15)
--- NOTE | 2019-05-27 08:26 | XR ---
EXAMINATION TYPE: XR chest 1V portable DATE OF EXAM: 05/27/2019 COMPARISON: 05/26/2019 HISTORY: Right chest tube placement. Follow-up for pleural effusion. TECHNIQUE: Single frontal view of the chest is obtained. FINDINGS: Right infrahilar masslike consolidation persists however a more well-defined right perihil ar consolidation is also now seen. Right thoracostomy tube is stable in position with trace right ple ural effusion remaining. No pneumothorax is seen. Pneumothorax appears to be loculated extending up t he right lateral hemithorax. Multifocal right-sided airspace disease again likely represents atelecta sis. Trace atelectasis is seen dependently at the left lung base. Right-sided central venous catheter is unchanged. Cardia mediastinal silhouette is nonenlarged. No acute osseous pathology. There is pul monary hyperinflation of underlying COPD. IMPRESSION: 1. There are now 2 rounded densities surrounding the right hilum, possible loculated portions of the known pleural effusion. Continued follow-up to resolution is recommended however to ensure no underly ing masses. 2. Right thoracostomy tube position is unchanged with trace loculated right pleural effusion and biba silar atelectasis.
[2019-05-27] MEDS: CALCIUM CARBONATE LIQUID 500 MG/5 ML CUP PO PRN ×2 (10:12→22:04)
--- NOTE | 2019-05-27 10:22 | P.PN ---
Subjective Progress Note Date: 05/27/19 Principal diagnosis: Acute hypoxic respiratory failure secondary to multilobar pneumonia and right- sided lacunar pleural effusion On 05/27/2019 patient seen in follow-up on medical surgical floor. He is awake and alert, no acute distress, remain pulse ox is 96%, no fever or chills, hemodynamically stable, reports some mild right chest discomfort, with the breathing and coughing, but reports no acute distress, is currently on room air. Denies any difficulty breathing, he is working on incentive spirometer, today chest x-ray has been reviewed showing 2 rounded density surrounding the right hilum possibly related to loculated portions of the known pleural effusion. Right chest tube remains in place, and there has only been 60 mL of output from it in the last 24 hours. There have been no fever or chills, pleural fluid cultures have shown no growth, bronchial lavage cultures showed Viridiana albicans only, patient remains on combination of Levaquin, Anidulafungin and vancomycin. ID service is following, CT surgery is following, patient had received 5 doses of alteplase over 5 days, last dose the day before yesterday. No new labs today. Clinically patient looks stable denies any acute distress. He sitting up in a recliner, tolerating activity well. Objective - Vital Signs Vital signs: Vital Signs Temp 98.6 F 05/27/19 07:15 Pulse 96 05/27/19 07:15 Resp 16 05/27/19 07:15 BP 125/78 05/27/19 07:15 Pulse Ox 96 05/27/19 07:15 Intake & Output 05/26/19 05/27/19 05/27/19 18:59 06:59 18:59 Intake Total 900 250 360 Output Total 3910 0 0 Balance -3010 250 360 Weight 60.555 kg Intake: IV 800 50 Lactated Ringers 1,000 ml 600 50 @ 50 mls/hr IV .Q20H [facility] Rx#:[id number] Piperacillin-Tazobactam 3 200 .375 gm In Sodium Chloride 0.9% 100 ml @ 25 mls/hr IVPB Q8HR [facility] Rx# :[id number] Intake, IV Titration 100 Amount Anidulafungin 100 mg In 100 Sodium Chloride 0.9% 100 ml @ 84 mls/hr IVPB DAILY [facility] Rx#:[id number] Norepinephrine 32 mg In 0 Sodium Chloride 0.9% 218 ml @ 0.07 MCG/KG/MIN 2. 136 mls/hr IV .Q24H [facility] Rx#:[id number] Oral 200 360 Output: Chest Tube Drainage 60 0 0 Chest Tube Right Lateral 60 0 0 Chest Urine 3650 0 Urine/Stool Mix 200 Other: Voiding Method Urinal Urinal ABP, PAP, CO, CI - Last Documented Arterial Blood Pressure 172/81 - Exam GENERAL EXAM: Alert, pleasant 54-year-old white male, sitting up in the recliner, on room air comfortable in no apparent distress. HEAD: Normocephalic/atraumatic. EYES: Normal reaction of pupils, equal size. Conjunctiva pink, sclera white. NOSE: Clear with pink turbinates. THROAT: No erythema or exudates. NECK: No masses, no JVD, no thyroid enlargement, no adenopathy. CHEST: No chest wall deformity. Symmetrical expansion. Patient has a right- sided chest tube in place, with small amount of serous drainage, no air leak noted LUNGS: Equal air entry with no crackles, wheeze, rhonchi or dullness. CVS: Regular rate and rhythm, normal S1 and S2, no gallops, no murmurs, no rubs ABDOMEN: Soft, nontender. No hepatosplenomegaly, normal bowel sounds, no guarding or rigidity. EXTREMITIES: No clubbing, no edema, no cyanosis, 2+ pulses and upper and lower extremities. MUSCULOSKELETAL: Muscle strength and tone normal. SPINE: No scoliosis or deformity SKIN: No rashes CENTRAL NERVOUS SYSTEM: Alert and oriented -3. No focal deficits, tone is normal in all 4 extremities. PSYCHIATRIC: Alert and oriented -3. Appropriate affect. Intact judgment and insight. - Labs CBC & Chem 7: 05/26/19 04:57 05/26/19 04:57 Labs: Abnormal Lab Results - Last 24 Hours (Table) 05/26/19 05/26/19 05/26/19 Range/Units 11:45 16:25 20:12 POC Glucose (mg/dL) 116 H 123 H 154 H (75-99) mg/dL 05/27/19 Range/Units 06:56 POC Glucose (mg/dL) 119 H (75-99) mg/dL Microbiology - Last 24 Hours (Table) 05/19/19 12:20 Acid Fast Bacilli Smear - Final Pleural Fluid Acid Fast Bacilli Culture - Preliminary Assessment and Plan Plan: Assessment: 1 acute hypoxic respiratory failure requiring intubation and mechanical ventilation. This is secondary to multilobar pneumonia and possible complicated right-sided pleural effusion. Status post tube thoracostomy postoperative day #7, patient was successfully extubated on 05/22/2019, 2 sepsis secondary to pneumonia, and loculated pleural effusion may eventually require decortication. 3 history of multiple comorbidities including bipolar disorder, schizophrenia, and history of head injury 4 history of compartment syndrome of the left lower extremity 5 underlying COPD severity of which is unclear. 6 chronic and ongoing tobacco dependence syndrome. Plan: Continue current antibiotics per ID service recommendations, patient is doing well, continue encouraging deep breathing and coughing, today's chest x-ray has been reviewed showing rounded densities in the right hilum possibly related to acute pleural effusions, is been minimal drainage out of the chest tube in the last 24 hours, no fever or chills, no acute events overnight, patient could possibly have the chest tube removed, CT surgery is following, will await further recommendation continue with nebulized bronchodilators, oral steroids. I performed a history & physical examination of the patient and discussed their management with my nurse practitioner, Constanza Hayes. I reviewed the nurse practitioner's note and agree with the documented findings and plan of care. Lung sounds are positive for diminished breath sounds over right lower lobe. The findings and the impression was discussed with the patient. I attest to the documentation by the nurse practitioner. Time with Patient: Less than 30
[2019-05-27] MEDS: NOREPINEPHRINE 32 MG in SODIUM CHLORIDE 0.9% 218 ML IV SCH (12:49)
[2019-05-27] MEDS: ANIDULAFUNGIN 100 MG in SODIUM CHLORIDE 0.9% 100 ML IVPB SCH (14:46)
[2019-05-27] MEDS: DIAZEPAM 5 MG/ML 2 ML INJ IVP PRN ×2 (14:55→19:29)
--- NOTE | 2019-05-27 17:00 | P.PN ---
Subjective Progress Note Date: 05/27/19 Principal diagnosis: Community-acquired bacterial pneumonia, acute respiratory failure with hypoxia and hypercapnia, leukocytosis. Past medical history significant for chronic obstructive pulmonary disease, chronic and ongoing tobacco dependence, history of closed head injury, bipolar disorder, paranoid schizophrenia, narcotic and illicit drug use. Status post day #6 bronchoscopy and bronchoalveolar lavage of the right lower lobe, bronchial alveolar lavage of the left lower lobe and lingula and suctioning of mucous plugging in both lower lobes performed by Dr. Harris. Status post day #8 intubation with mechanical ventilator support, subsequently extubated on 05/22/2018 at 12:17 PM. Right thoracostomy chest tube placement placed by Dr. Rai. Right subclavian triple-lumen central line placement by Dr. Rai. The patient is resting in bed on the medical surgical unit. He is in no acute distress. He currently denies any complaints of pain or shortness of breath. The patient reports she has been having episodes of diarrhea. Oxygen saturations 96% on room air. He is achieving 2000 mL on his incentive spirometry with encouragement. He has been afebrile in the last 24 hours. He is alert and oriented 3. He remains with a right pleural chest tube in place to low continuous wall suction -20 cm H2O. No air leak is present. Draining thin serous fluid. Less then 40 mL output in the last 24 hours. Bedside telemetry showing normal sinus rhythm heart rate 96 and current blood pressure is 125/78. He has a right subclavian triple-lumen in place and is functioning. Objective - Vital Signs Vital signs: Vital Signs Temp 98.6 F 05/27/19 07:15 Pulse 96 05/27/19 07:15 Resp 16 05/27/19 07:15 BP 125/78 05/27/19 07:15 Pulse Ox 96 05/27/19 07:15 Intake & Output 05/26/19 05/27/19 05/27/19 18:59 06:59 18:59 Intake Total 900 250 360 Output Total 3910 0 0 Balance -3010 250 360 Weight 60.555 kg Intake: IV 800 50 Lactated Ringers 1,000 ml 600 50 @ 50 mls/hr IV .Q20H [facility] Rx#:[id number] Piperacillin-Tazobactam 3 200 .375 gm In Sodium Chloride 0.9% 100 ml @ 25 mls/hr IVPB Q8HR [facility] Rx# :[id number] Intake, IV Titration 100 Amount Anidulafungin 100 mg In 100 Sodium Chloride 0.9% 100 ml @ 84 mls/hr IVPB DAILY [facility] Rx#:[id number] Norepinephrine 32 mg In 0 Sodium Chloride 0.9% 218 ml @ 0.07 MCG/KG/MIN 2. 136 mls/hr IV .Q24H [facility] Rx#:[id number] Oral 200 360 Output: Chest Tube Drainage 60 0 0 Chest Tube Right Lateral 60 0 0 Chest Urine 3650 0 Urine/Stool Mix 200 Other: Voiding Method Urinal Urinal ABP, PAP, CO, CI - Last Documented Arterial Blood Pressure 172/81 - Constitutional Constitutional Comment(s): Patient is calm and cooperative, in no acute distress, thin. - Respiratory Details: Lungs sounds essentially clear throughout, diminished to his bilateral bases. Respirations are symmetrical and nonlabored. No wheezes rhonchi or crackles present. Oxygen saturation is 96% on room air. Achieving 2000 mL on his incentive spirometry. Right pleural chest tube remains in place to low continuous wall suction -20 cm H2O. No air leak is present. Draining thin s erous drainage. Less than 40 mL output in the last 24 hours. - Cardiovascular Details: Regular rhythm and rate. S1 and S2 present, negative for S3, gallop or murmur. No edema present. Knee-high sequential compression devices in place to his bilateral lower extremities. - Gastrointestinal Gastrointestinal Comment(s): Abdomen is soft, nontender and nondistended. Active bowel sounds present in all 4 abdominal quadrants. No guarding or rigidity. No organomegaly appreciated. Tolerating oral intake. Last bowel movement was today 05/27/2019 - Genitourinary Genitourinary Comment(s): Voiding clear yellow urine. - Integumentary Integumentary Comment(s): Voiding clear yellow urine. - Neurologic Neurologic Comment(s): No focal deficits. Neurologic: Present: CNII-XII intact - Musculoskeletal Musculoskeletal: Present: generalized weakness, strength equal bilaterally - Psychiatric Psychiatric: Present: A&O x's 3, appropriate affect, intact judgment & insight - Allied health notes Allied health notes reviewed: nursing - Labs CBC & Chem 7: 05/26/19 04:57 05/26/19 04:57 Labs: Abnormal Lab Results - Last 24 Hours (Table) 05/26/19 05/26/19 05/26/19 Range/Units 11:45 16:25 20:12 POC Glucose (mg/dL) 116 H 123 H 154 H (75-99) mg/dL 05/27/19 Range/Units 06:56 POC Glucose (mg/dL) 119 H (75-99) mg/dL Microbiology - Last 24 Hours (Table) 05/19/19 12:20 Acid Fast Bacilli Smear - Final Pleural Fluid Acid Fast Bacilli Culture - Preliminary - Imaging and Cardiology Chest x-ray: report reviewed, image reviewed Assessment and Plan Assessment: 1. Hypoxic respiratory failure, post intubation mechanical ventilation 2. Right loculated pleural effusion, status post right-sided chest tube placement 3. Sepsis secondary to multilobar community-acquired pneumonia 4. Leukocytosis, secondary to above 5. Hypotension requiring norepinephrine support 6. Chronic and ongoing tobacco dependence 7. Chronic obstructive pulmonary disease 8. Paranoid schizophrenia 9. Bipolar disorder 10. History of closed head injury 11. History of compartment syndrome of the left lower extremity Plan: 1. Discontinue right pleural chest tube. 2. Bronchodilators and corticosteroids management per pulmonary and critical care management. 3. Antibiotic management per infectious disease recommendations. 4. Continue to monitor daily chest x-rays. 5. DVT and GI prophylaxis. 6. Medical management and other comorbidities management per primary care service. 7. Nutrition management per dietitian's recommendations. 8. Encourage use of his incentive spirometry every hour while awake. 9. The importance of smoking cessation was discussed with the patient. 10. More recommendations to follow based on patient's clinical course. Time with Patient: Greater than 30
[2019-05-27] MEDS: LEVOFLOXACIN 750 MG TAB PO SCH (20:59)
[2019-05-27] MEDS ORDERED: LURASIDONE 20 MG TAB PO SCH (21:00)
--- NOTE | 2019-05-27 21:00 | P.PN ---
Progress Note - Text Progress Note Date: 05/27/19 Interval history: This is a 54-year-old patient of Dr. andino from [place]. Unable to get much of history from the patient as he mumbles then he remains quite. I gather from the ER notes that he apparently is homeless 2. Patient's history include closed head injury bipolar neuropathy COPD. Patient is an active smoker at least 2 packs a day. He did present to the ER stating that he is withdrawing from benzodiazepines and he is out of the same. He does follow with Dr. Rivero from out of the [facility]. Patient is very congested chronic cough so tired and is not able to expectorate. Having fever and tachycardia when initially presented. Was started on IV antibiotics. Pulmonary was consulted. Patient just about wakes up to speak that goes back to sleep. Patient was diagnosed to have severe pneumonia, parapneumonic effusion, sepsis, suspected empyema delirium, COPD exacerbation. Cardiothoracic surgery was consulted with a view to chest tube/thoracotomy On May 19, Dr. Rai put in a chest tube. About 1100 mL of serosanguineous fluid was obtained. Patient intubated. Patient underwent bronchoscopy with bronco alveolar lavage on May 21. Patient extubated on May 22. Patient getting daily alteplase to the chest tube. Today-moved out of the ICU. Doing well. Plan was late in the day to the chest tube pulled out. No new issues. Review of systems: Was done for constitutional, cardiovascular, GI, pulmonary. relevant finding as above Active Medications Acetaminophen (Tylenol Tab) 650 mg PO Q6HR PRN PRN Reason: Fever and/ or MILD Pain Last Admin: 05/18/19 17:12 Dose: 650 mg Documented by: Hydrocodone Bitart/Acetaminophen ([place] 5-325) 1 each PO Q6HR PRN PRN Reason: MODERATE Pain Last Admin: 05/27/19 18:11 Dose: 1 each Documented by: Albuterol/Ipratropium (Duoneb 0.5 Mg-3 Mg/3 Ml Soln) 3 ml INHALATION RT-QID [facility] Last Admin: 05/27/19 19:29 Dose: Not Given Documented by: Amlodipine Besylate (Norvasc) 5 mg PO DAILY [facility] Last Admin: 05/27/19 08:13 Dose: 5 mg Documented by: Baclofen (Lioresal) 5 mg PO QID PRN PRN Reason: Muscle Spasm Last Admin: 05/25/19 21:47 Dose: 5 mg Documented by: Buspirone HCl (Buspar) 10 mg PO BID [facility] Last Admin: 05/27/19 08:14 Dose: Not Given Documented by: Calcium Carbonate/Glycine (Tums Liquid) 500 mg PO Q6HR PRN PRN Reason: GI Upset Last Admin: 05/27/19 10:12 Dose: 500 mg Documented by: Diazepam (Valium) 5 mg IVP Q4H PRN PRN Reason: Seizures Last Admin: 05/27/19 19:29 Dose: 5 mg Documented by: Doxepin HCl (Sinequan) 150 mg PO HS [facility] Last Admin: 05/27/19 00:13 Dose: Not Given Documented by: Enoxaparin Sodium (Lovenox) 40 mg SQ DAILY [facility] Last Admin: 05/27/19 08:15 Dose: 40 mg Documented by: Gabapentin (Neurontin) 600 mg PO TID [facility] Last Admin: 05/27/19 16:53 Dose: 600 mg Documented by: Lactated Ringer's (Lactated Ringers) 1,000 mls @ 50 mls/hr IV .Q20H [facility] Last Admin: 05/27/19 05:41 Dose: 50 mls/hr Documented by: Norepinephrine Bitartrate 32 (mg/ Sodium Chloride) 250 mls @ 2.136 mls/hr IV .Q24H [facility]; Protocol Last Admin: 05/27/19 12:49 Dose: Not Given Documented by: Vancomycin HCl 1,500 mg/ (Sodium Chloride) 250 mls @ 125 mls/hr IVPB Q8H [facility] Last Admin: 05/27/19 16:53 Dose: 125 mls/hr Documented by: Anidulafungin 100 mg/ Sodium (Chloride) 100 mls @ 84 mls/hr IVPB DAILY [facility] Last Admin: 05/27/19 14:46 Dose: 84 mls/hr Documented by: Levofloxacin (Levaquin) 750 mg PO Q24H [facility] Stop: 05/29/19 19:31 Last Admin: 05/26/19 18:03 Dose: 750 mg Documented by: Lorazepam (Ativan) 1 mg IV Q6HR PRN PRN Reason: Anxiety Last Admin: 05/27/19 18:12 Dose: 1 mg Documented by: Lurasidone HCl (Latuda) 60 mg PO HS [facility] Melatonin (Melatonin) 5 mg PO HS [facility] Last Admin: 05/26/19 22:58 Dose: 5 mg Documented by: Miscellaneous Information (Pneumonia Protocol Utilized) 1 each PO ONCE PRN PRN Reason: Per Protocol Naloxone HCl (Narcan) 0.2 mg IV Q2M PRN PRN Reason: Opioid Reversal Nicotine (Habitrol 21mg/24hr Patch) 1 patch TRANSDERM DAILY [facility] Last Admin: 05/27/19 08:14 Dose: 1 patch Documented by: Buprenorphine Hcl [ (Subutex] 8 Mg) 8 mg SUBLINGUAL AC-TID [facility] Last Admin: 05/27/19 16:54 Dose: 8 mg Documented by: Ondansetron HCl (Zofran) 4 mg IVP Q6HR PRN PRN Reason: Nausea And Vomiting Last Admin: 05/24/19 21:03 Dose: 4 mg Documented by: Pantoprazole Sodium (Protonix) 40 mg PO AC-BRKFST [facility] Last Admin: 05/27/19 08:14 Dose: 40 mg Documented by: Prednisone () 10 mg PO BID [facility] Last Admin: 05/27/19 08:14 Dose: 10 mg Documented by: Physical examination: VITAL SIGNS: 99, 96, 16, 11 6/74, 96% room air GENERAL: Sitting up in bed, cheerful EYES: Pupils equal. Conjunctiva pale HEENT: External appearance of nose and ears normal, oral cavity dry.endotracheal tube in place NECK: JVD unable to assess; masses not palpable. HEART: First and second heart sounds are normal; no edema. LUNGS: Respiratory rate increased, diminished breath sounds. right-sided chest tube in place ABDOMEN: Soft, nontender, liver spleen not palpable, no masses palpable. PSYCH: Q 3, motor affect normal. INVESTIGATIONS, reviewed in the clinical context: Accu-Cheks noted Sputum growing Viridiana albicans other cultures pending CT chest on April 23-small loculated pleural effusion on the right, slightly larger pleural effusions left Previous investigations White count 28.5 hemoglobin 12.1 sodium 127 potassium 4.1. Creatinine 0.81 albumin 3.0 UA negative for leukoesterase and nitrites Chest x-ray film personally reviewed by me-shows dense consolidation of the right side with questionable fluid Computed tomography scan of the chest shows complex lobular take fluid col lection in the right extending across the midline diffuse airspace disease in the right with bullous changes in the apex lobes no solid mass reported CT chest-multiple loculated right-sided pleural effusion are again noted. On the sliding interval improvement.. Interval development of coarse infiltrate for the left lung. Assessment: -Bilateral multilobar pneumonia with right parapneumonic effusion with loculated fluid, with sepsis, clinically and radiologically much improved -Right-sided chest tube placed, initially about 1100 mL of fluid obtained, status post alteplase, daily -Acute hypoxic respiratory failure from above, status post ventilator support, not doing well on room air -Acute delirium with encephalopathy secondary to underlying sepsis, now resolved -Acute COPD exacerbation in a current smoker, improving -nicotine dependence patient's cigarette smoker -Idiopathic peripheral neuropathy -Bipolar disorder -Hyponatremia, improved -Hypoalbuminemia could be an acute phase reactant -Marfanoid appearance Anticipated Disposition: Home Plan: Clinically much improved. Plan is for to remove the chest tube later this afternoon. Hopefully patient be discharged tomorrow.
[2019-05-27] MEDS: MELATONIN 5 MG TABLET PO SCH (21:01)
[2019-05-28] MEDS: LORazepam 2 MG/ML INJ IV PRN ×3 (00:25→13:08)
[2019-05-28] MEDS: HYDROcodone/APAP 5-325MG 1 EACH TAB PO PRN ×3 (00:26→13:09)
[2019-05-28 03:41] VITALS: TEMP 98.9
[2019-05-28] MEDS: VANCOMYCIN 1,500 MG in SODIUM CHLORIDE 0.9% 250 ML IVPB SCH (05:22)
[2019-05-28 07:00] LABS: Glucose,Whole Blood 106 mg/dL (75-99)
[2019-05-28] MEDS: Buprenorphine Hcl [Subutex] 8 MG SUBLINGUAL SCH ×2 (07:12→11:54)
[2019-05-28 07:18] VITALS: BP 120/80; RESP 16
[2019-05-28] MEDS: IPRATROPIUM-ALBUTEROL 3 ML NEB INHALATION SCH ×2 (08:11→12:09)
[2019-05-28 08:27] VITALS: PULSE 96
[2019-05-28] MEDS: predniSONE 10 MG TAB PO SCH (08:54)
[2019-05-28] MEDS: NICOTINE 21MG/24HR PATCH TRANSDERM SCH (08:54)
[2019-05-28] MEDS: ENOXAPARIN 40 MG/0.4 ML SYRINGE SQ SCH (08:54)
[2019-05-28] MEDS: amLODIPine 5 MG TAB PO SCH (08:54)
[2019-05-28] MEDS: PANTOPRAZOLE 40 MG TABLET PO SCH (08:54)
[2019-05-28] MEDS: busPIRone HCl 10 MG TAB PO SCH (08:55)
[2019-05-28] MEDS: GABAPENTIN 300 MG CAP PO SCH (08:55)
--- NOTE | 2019-05-28 09:07 | XR ---
EXAMINATION TYPE: XR chest 2V DATE OF EXAM: 05/28/2019 COMPARISON: 05/27/2019 HISTORY: Right-sided empyema. Status post chest tube removal. TECHNIQUE: Frontal and lateral views of the chest are obtained. FINDINGS: Right-sided subclavian approach central venous catheter is unchanged. Right-sided thoracos alexander tube has been removed in the interim. Trace pleural reaction/pleural effusion is seen on the rig ht from the prior empyema. Improved right perihilar airspace disease but persistent masslike right in frahilar consolidation measuring proximally 4.4 cm. COPD is seen as there is swelling of the diaphrag ms on the lateral view. Very minimal degenerative changes of the thoracic spine. Cardiomediastinal si lhouette is within normal limits. Residual right basilar atelectasis is again noted. IMPRESSION: 1. Status post removal of the right thoracostomy tube with trace residual right pneumothorax/pleural reaction of the prior empyema and right basilar atelectasis. 2. Persistent 4.4 cm masslike consolidation of the right infrahilar region. Continued up to resolutio n is recommended to exclude pulmonary mass.
[2019-05-28] MEDS: ANIDULAFUNGIN 100 MG in SODIUM CHLORIDE 0.9% 100 ML IVPB SCH (09:16)
--- NOTE | 2019-05-28 10:06 | P.PN ---
Subjective Progress Note Date: 05/28/19 Principal diagnosis: Community-acquired bacterial pneumonia, acute respiratory failure with hypoxia and hypercapnia, leukocytosis. Past medical history significant for chronic obstructive pulmonary disease, chronic and ongoing tobacco dependence, history of closed head injury, bipolar disorder, paranoid schizophrenia, narcotic and illicit drug use. Status post day #7 bronchoscopy and bronchoalveolar lavage of the right lower lobe, bronchial alveolar lavage of the left lower lobe and lingula and suctioning of mucous plugging in both lower lobes performed by Dr. Harris. Status post day #9 intubation with mechanical ventilator support, subsequently extubated on 05/22/2018 at 12:17 PM. Right thoracostomy chest tube placement placed by Dr. Rai. Right subclavian triple-lumen central line placement by Dr. Rai. The patient is sitting on the bedside edge on the medical surgical unit. He is in no acute distress. He denies any complaints of pain or shortness of breath. No further complaints of diarrhea. Oxygen saturations 98% on room air. He is achieving 2000 mL on his incentive spirometry with encouragement. He has been afebrile in the last 24 hours. He is alert and oriented 3. His right pleural chest tube was discontinued yesterday. Objective - Vital Signs Vital signs: Vital Signs Temp 98.9 F 05/28/19 02:35 Pulse 96 05/28/19 08:27 Resp 16 05/28/19 07:18 BP 120/80 05/28/19 07:18 Pulse Ox 98 05/28/19 07:18 Intake & Output 05/27/19 05/28/19 05/28/19 18:59 06:59 18:59 Intake Total 600 960 Output Total 800 1750 Balance -200 -790 Weight 57.2 kg Intake: Oral 600 960 Output: Chest Tube Drainage 0 Chest Tube Right Lateral 0 Chest Urine 800 1750 Other: Voiding Method Urinal # Voids 1 # Bowel Movements 1 ABP, PAP, CO, CI - Last Documented Arterial Blood Pressure 172/81 - Constitutional General appearance: Present: cooperative, no acute distress, thin - Respiratory Details: Lungs sounds essentially clear to his bilateral upper lobe, few scattered crackles to his bilateral bases. No wheezing, rhonchi appreciated. Respirations are symmetrical and nonlabored. Oxygen saturation 98% on room air. Achieving 2000 mL on his incentive spirometry. - Cardiovascular Details: Regular rhythm and rate. S1 and S2 present, negative for S3, gallop or murmur. No edema present. Right anterior chest subclavian triple-lumen catheter in place and functioning. - Gastrointestinal Gastrointestinal Comment(s): Abdomen is soft, nontender and nondistended. Active bowel sounds present all 4 abdominal quadrants. No guarding or rigidity. No organ clinically appreciated. - Genitourinary Genitourinary Comment(s): Voiding clear yellow urine. - Integumentary Integumentary Comment(s): Skin is warm and dry. No clubbing or cyanosis is present. No rash or abnormal pigmentation is present. Dressing clean, dry and intact to his chest tube in sertion site. - Neurologic Neurologic Comment(s): No focal deficits. Neurologic: Present: CNII-XII intact - Musculoskeletal Musculoskeletal: Present: gait normal, generalized weakness, strength equal bilaterally - Psychiatric Psychiatric: Present: A&O x's 3, appropriate affect, intact judgment & insight - Allied health notes Allied health notes reviewed: nursing - Labs CBC & Chem 7: 05/26/19 04:57 05/26/19 04:57 Labs: Abnormal Lab Results - Last 24 Hours (Table) 05/28/19 Range/Units 06:48 POC Glucose (mg/dL) 106 H (75-99) mg/dL - Imaging and Cardiology Chest x-ray: report reviewed, image reviewed Assessment and Plan Assessment: 1. Hypoxic respiratory failure, post intubation mechanical ventilation 2. Right loculated pleural effusion, status post right-sided chest tube placement 3. Sepsis secondary to multilobar community-acquired pneumonia 4. Leukocytosis, secondary to above 5. Hypotension requiring norepinephrine support 6. Chronic and ongoing tobacco dependence 7. Chronic obstructive pulmonary disease 8. Paranoid schizophrenia 9. Bipolar disorder 10. History of closed head injury 11. History of compartment syndrome of the left lower extremity Plan: 1. Bronchodilators and corticosteroids management per pulmonary and critical care management. 2. Antibiotic management per infectious disease recommendations. 3. Continue to monitor daily chest x-rays. 4. DVT and GI prophylaxis. 5. Medical management and other comorbidities management per primary care service. 6. Nutrition management per dietitian's recommendations. 7. Encourage use of his incentive spirometry every hour while awake. 8. The importance of smoking cessation was discussed with the patient. 9. We will follow the patient on an as-needed basis. Time with Patient: Greater than 30
[2019-05-28] MEDS: NOREPINEPHRINE 32 MG in SODIUM CHLORIDE 0.9% 218 ML IV SCH (11:26)
--- NOTE | 2019-05-28 12:17 | P.PN ---
Subjective Progress Note Date: 05/28/19 Principal diagnosis: Acute hypoxic respiratory failure secondary to multilobar pneumonia and right- sided loculated pleural effusion The patient is seen today 05/28/2019 in follow-up on the regular medical floor. He is awake and alert in no acute distress. His chest tube has been removed. He is feeling back to his baseline. Maintaining good O2 saturations in the upper 90s on room air. Follow-up chest x-ray reveals trace residual right-sided pneumothorax with pleural reaction of the prior empyema and right basilar atelectasis. There is a persistent 4.4 cm masslike consolidation in the right infrahilar region. Blood glucose 106. Brachial wash was positive for Viridiana only. He remains on anidulafungin, Levaquin and vancomycin. Objective - Vital Signs Vital signs: Vital Signs Temp 98.9 F 05/28/19 02:35 Pulse 96 05/28/19 08:27 Resp 16 05/28/19 07:18 BP 120/80 05/28/19 07:18 Pulse Ox 98 05/28/19 07:18 Intake & Output 05/27/19 05/28/19 05/28/19 18:59 06:59 18:59 Intake Total 600 960 240 Output Total 800 1750 Balance -200 -790 240 Weight 57.2 kg Intake: Oral 600 960 240 Output: Chest Tube Drainage 0 Chest Tube Right Lateral 0 Chest Urine 800 1750 Other: Voiding Method Urinal # Voids 1 # Bowel Movements 1 ABP, PAP, CO, CI - Last Documented Arterial Blood Pressure 172/81 - Exam GENERAL EXAM: Alert, pleasant 54-year-old male patient, on room air comfortable in no apparent distress. HEAD: Normocephalic/atraumatic. EYES: Normal reaction of pupils, equal size. Conjunctiva pink, sclera white. NOSE: Clear with pink turbinates. THROAT: No erythema or exudates. NECK: No masses, no JVD, no thyroid enlargement, no adenopathy. CHEST: No chest wall deformity. Symmetrical expansion. Right-sided chest tube removed. LUNGS: Equal air entry with faint crackles in the right posterior base. CVS: Regular rate and rhythm, normal S1 and S2, no gallops, no murmurs, no rubs ABDOMEN: Soft, nontender. No hepatosplenomegaly, normal bowel sounds, no guarding or rigidity. EXTREMITIES: No clubbing, no edema, no cyanosis, 2+ pulses and upper and lower extremities. MUSCULOSKELETAL: Muscle strength and tone normal. SPINE: No scoliosis or deformity SKIN: No rashes CENTRAL NERVOUS SYSTEM: No focal deficits, tone is normal in all 4 extremities. PSYCHIATRIC: Alert and oriented -3. Appropriate affect. Intact judgment and insight. - Labs CBC & Chem 7: 05/26/19 04:57 05/26/19 04:57 Labs: Abnormal Lab Results - Last 24 Hours (Table) 05/28/19 Range/Units 06:48 POC Glucose (mg/dL) 106 H (75-99) mg/dL Assessment and Plan Assessment: Impression: #1 Acute right lung pneumonia, with complex loculated thick rind fluid collection on the right extending across the midline with a smaller left effusion. Diffuse airspace disease on the right with bullous changes in the upper lobes. No definitive solid mass seen. Right hilar mediastinal adenopathy may be reactive or neoplastic. Right-sided chest tube removed. #2 Right sided chest pain secondary to above. #3 Acute hypoxic respiratory failure secondary to above. #4 leukocytosis secondary to above. #5 Bipolar disorder. #6 Schizophrenia. #7 History of head injury. #8 History of compartment syndrome of the left lower extremity. #9 Chronic obstructive pulmonary disease. #10 Chronic and ongoing tobacco dependence. Plan: The patient was seen and evaluated by Dr. Murillo. Chest x-ray reviewed. He is stable from the pulmonary standpoint and could be discharged home on antibiotics per ID. He should follow-up in our office in 1-2 weeks' time. Further chest x- rays regarding the 4.4 cm masslike consolidation in the right infrahilar region. He is encouraged to call sooner with any recurrence of symptoms or other questions or concerns. I, the cosigning physician, performed a history & physical examination of the patient. Lungs sounds faint crackles in the right posterior base. Maintaining good O2 saturations in the 90s on room air. I discussed the assessment and plan of care with my nurse practitioner, Arabella Florence. I attest to the above consultation as dictated by her.
--- NOTE | 2019-05-28 22:09 | P.DS ---
Providers Date of admission: 05/16/19 19:32 Expected date of discharge: 05/28/19 Attending physician: Edwin Navarrete Consults: 05/16/19 19:29 Consult Physician Routine Consulting Provider: Farhat Rai Consult Reason/Comments: effusion Do you want consulting provider notified?: Yes 05/16/19 19:31 Consult Physician Routine Consulting Provider: Jacques Loja Consult Reason/Comments: depression Do you want consulting provider notified?: Already Contacted 05/17/19 14:32 Consult Physician Routine Consulting Provider: Batsheva Hatch Consult Reason/Comments: Complex right-sided loculated effusions. Do you want consulting provider notified?: Yes 05/18/19 22:50 Consult Physician Stat Consulting Provider: Austin Fatima Consult Reason/Comments: Cespedes placement Do you want consulting provider notified?: Yes 05/19/19 09:43 Consult Physician Routine Consulting Provider: Zaheer Paz Consult Reason/Comments: sepsis/pneumonia Do you want consulting provider notified?: Yes Primary care physician: Basil Srinivasan [facility] Course: Interval history: This is a 54-year-old patient of Dr. srinivasan from [place]. Unable to get much of history from the patient as he mumbles then he remains quite. I gather from the ER notes that he apparently is homeless 2. Patient's history include closed head injury bipolar neuropathy COPD. Patient is an active smoker at least 2 packs a day. He did present to the ER stating that he is withdrawing from benzodiazepines and he is out of the same. He does follow with Dr. Rivreo from out of the [facility]. Patient is very congested chronic cough so tired and is not able to expectorate. Having fever and tachycardia when initially presented. Was started on IV antibiotics. Pulmonary was consulted. Patient just about wakes up to speak that goes back to sleep. Patient was diagnosed to have severe pneumonia, parapneumonic effusion, sepsis, suspected empyema delirium, COPD exacerbation. Cardiothoracic surgery was consulted with a view to chest tube/thoracotomy On May 19, Dr. Rai put in a chest tube. About 1100 mL of serosanguineous fluid was obtained. Patient intubated. Patient underwent bronchoscopy with bronco alveolar lavage on May 21. Patient extubated on May 22. Patient getting daily alteplase to the chest tube. Patient continued to improve. Doing much better at time of discharge. Doing well on room air. Patient was seen by psychiatry. Abilify was discontinued. Put on Latuda. Today-I discussed at length with the patient. He wanted to go back and smoke a bit. I reminded him again and again how seriously was. He wanted also some benzodiazepines. I reminded him again this is important to try to stay away from these medications as far as possible. Told the nurse to get discharge orders from psychiatry. Including follow-up. Also told the nurse to call patient's brother and sister to have them take a bit tobacco products from the home after patient's permission she doesn't get tempted. It may be noted that patient's could've marfanoid phenotype. Discussion and discharge planning more than 35 minutes Consultation: Cardiothoracic surgery Dr. Paz for infectious disease Dr. Loja from psychiatry Dr. Fabian from pulmonary Physical examination: VITAL SIGNS: 99, 96, 16, 11 6/74, 96% GENERAL: Sitting up in bed, cheerful Marfanoid phenotype with-large arm span, low hairline, low ears, high arch palate. EYES: Pupils equal. Conjunctiva pale HEENT: External appearance of nose and ears normal, oral cavity dry.endotracheal tube in place NECK: JVD unable to assess; masses not palpable. HEART: First and second heart sounds are normal; no edema. LUNGS: Respiratory rate increased, diminished breath sounds. right-sided chest tube in place ABDOMEN: Soft, nontender, liver spleen not palpable, no masses palpable. PSYCH: Q 3, motor affect normal. INVESTIGATIONS, reviewed in the clinical context: White count 16 hemoglobin 10.4 creatinine 0.44 Accu-Cheks noted Sputum growing Viridiana albicans other cultures pending CT chest on April 23-small loculated pleural effusion on the right, slightly larger pleural effusions left Previous investigations White count 28.5 hemoglobin 12.1 sodium 127 potassium 4.1. Creatinine 0.81 albumin 3.0 UA negative for leukoesterase and nitrites Chest x-ray film personally reviewed by me-shows dense consolidation of the right side with questionable fluid Computed tomography scan of the chest shows complex lobular take fluid collection in the right extending across the midline diffuse airspace disease in the right with bullous changes in the apex lobes no solid mass reported CT chest-multiple loculated right-sided pleural effusion are again noted. On the sliding interval improvement.. Interval development of coarse infiltrate for the left lung. Discharge diagnosis: -Bilateral multilobar pneumonia with right parapneumonic effusion with loculated fluid, with sepsis, clinically and radiologically much improved -Right-sided chest tube placed, initially about 1100 mL of fluid obtained, status post alteplase, daily -Acute hypoxic respiratory failure from above, status post ventilator support, doing well now on room air -Acute delirium with encephalopathy secondary to underlying sepsis, now resolved -Acute COPD exacerbation in a current smoker, improving -nicotine dependence patient's cigarette smoker -Idiopathic peripheral neuropathy -Bipolar disorder -Hyponatremia, improved -Hypoalbuminemia could be an acute phase reactant -Marfanoid appearance Disposition: Home Patient Condition at Discharge: Stable Plan - Discharge Summary Discharge Rx Participant: Yes New Discharge Prescriptions: New Ipratropium [place] [Atrovent Hfa] 2 puff INHALATION QID #1 inhaler Ipratropium-Albuterol Nebulize [Duoneb 0.5 mg-3 mg/3 ml Soln] 3 ml INHALATION RT-QID ampul.neb Nicotine 21Mg/24Hr Patch [Habitrol] 1 patch TRANSDERM DAILY #14 patch Melatonin 5 mg PO HS #30 tablet amLODIPine [Norvasc] 5 mg PO DAILY #30 tab predniSONE 0 mg PO DIRECTED #9 tab Albuterol Inhaler [Ventolin Hfa Inhaler] 1 - 2 puff INHALATION RT-Q6H PRN #1 inhaler PRN Reason: Wheezing Moxifloxacin HCl 400 mg PO DAILY #7 tab Continue Gabapentin 600 mg PO TID Doxepin HCl [SINEquan] 150 mg PO HS Buprenorphine HCl [Subutex] 8 mg SUBLINGUAL AC-TID busPIRone HCl [Buspar] 10 mg PO BID Baclofen [Lioresal] 20 mg PO Q6H PRN PRN Reason: Muscle Pain Discontinued ARIPiprazole [Abilify] 10 mg PO DAILY Discharge Medication List Buprenorphine HCl [Subutex] 8 mg SUBLINGUAL AC-TID 04/27/19 [History] Doxepin HCl [SINEquan] 150 mg PO HS 04/27/19 [History] Gabapentin 600 mg PO TID 04/27/19 [History] busPIRone HCl [Buspar] 10 mg PO BID 04/27/19 [History] Baclofen [Lioresal] 20 mg PO Q6H PRN 05/16/19 [History] Albuterol Inhaler [Ventolin Hfa Inhaler] 1 - 2 puff INHALATION RT-Q6H PRN #1 inhaler 05/28/19 [Rx] Ipratropium [place] [Atrovent Hfa] 2 puff INHALATION QID #1 inhaler 05/28/19 [Rx] Ipratropium-Albuterol Nebulize [Duoneb 0.5 mg-3 mg/3 ml Soln] 3 ml INHALATION RT-QID ampul.neb 05/28/19 [Rx] Melatonin 5 mg PO HS #30 tablet 05/28/19 [Rx] Moxifloxacin HCl 400 mg PO DAILY #7 tab 05/28/19 [Rx] Nicotine 21Mg/24Hr Patch [Habitrol] 1 patch TRANSDERM DAILY #14 patch 05/28/19 [Rx] amLODIPine [Norvasc] 5 mg PO DAILY #30 tab 05/28/19 [Rx] predniSONE 0 mg PO DIRECTED #9 tab 05/28/19 [Rx] Follow up Appointment(s)/Referral(s): [facility], [NON-STAFF] - 1-2 Days Basil Srinivasan MD [Primary Care Provider] - 06/06/19 8:15 am Patient Instructions/Handouts: Pleural Effusion (DC) Activity/Diet/Wound Care/Special Instructions: Antibiotics per Dr. Paz Discharge Disposition: HOME SELF-CARE
--- NOTE | 2019-05-29 09:34 | CDI ---
Documentation Clarification Form Date: 05/29/19 From: Apryl Hirsch Phone: If questions call Cassie Colmenares @ [phone], Hours-8:30 am & 5 pm M- F Admit Date: 05/16/2019 7:32:00 PM Patient Name: Darryl Long Visit Number: [id number] Discharge Date: 05/28/2019 2:38:00 PM ATTENTION: The Clinical Documentation Specialists (CDI) and [facility] Coding Staff appreciate your assistance in clarifying documentation. Please respond to the clarification below the line at the bottom and electronically sign. The CDI & [facility] Coding staff will review the response and follow-up if needed. Please note: Queries are made part of the Legal Health Record. If you have any questions, please contact the author of this message via ITS. Dr. Edwin Navarrete Pneumonia was documented in ED note, H&P PNs & DS. History/Risk Factors: sepsis, septic shock, metabolic encephalopathy, empyema, acute on chronic hypoxic & hpercapnia respiratory failure Micro: grew few Viridiana albicans & Viridiana glabrata Treatment: mechanical ventilation, chest tube, BAL and suctioning of both lungs Antibiotics: IV Levaquin, IV Zosyn, IV Vanco, IV Anidulafungin, PO Diflucan, In order to capture the severity of condition, please clarify if the type of pneumonia you are treating: Candidal Pneumonia Aspiration Pneumonia Bacterial Pneumonia, specify causal organism (if known) Gram Negative Pneumonia Due to Strep Due to Staph Due to E. Coli Other bacteria (please specify) Other, please specify Unable to determine Bilateral pneumonia-possibly from gram negative organism MTDD
--- NOTE | 2019-05-29 10:59 | CDI ---
Documentation Clarification Form Date: 05/29/19 From: Apryl Hirsch Phone: If questions call Cassie Colmenares @ [phone], Hours-8:30 am & 5 pm M- F Admit Date: 05/16/2019 7:32:00 PM Patient Name: Darryl Long Visit Number: [id number] Discharge Date: 05/28/2019 2:38:00 PM ATTENTION: The Clinical Documentation Specialists (CDI) and [facility] Coding Staff appreciate your assistance in clarifying documentation. Please respond to the clarification below the line at the bottom and electronically sign. The CDI & [facility] Coding staff will review the response and follow-up if needed. Please note: Queries are made part of the Legal Health Record. If you have any questions, please contact the author of this message via ITS. Dr. Edwin Navarrete Frail cachectic man has been documented in 05/18 PN and 05/17 consult. History/Risk Factors: sepsis, septic shock, pneumonia, acute hypoxic & hypercapnia respiratory failure, empyema, homeless, smoker Clinical Indicators: Presented with fever and congestion. Intubated, NG tube Labs: Current BMI: 19.2 Insufficient energy intake: inadequate oral intake, NPO Treatment: feeding tube on 05/19, IV fluids Dietary Consult: for feeding tube Lab monitoring: Albumin 3.0, Total protein 6.4 In your professional opinion, can you please clarify if these findings signify one of the following conditions? Mild Protein-Calorie Malnutrition Moderate Protein-Calorie Malnutrition Malnutrition, unspecified Other condition, please specify Unable to determine No malnutrition. (hypoalbuminemia - acute phase reactant) MTDD
== END 2019-05-28 14:38 | disposition home health service (06) | DRG 871 ==
LOC: EC 16:13 → 4SSUR 19:32 → 3SCARD 05-18 17:44 → 2SICU 05-18 19:25 → 4SSUR 05-26 22:37
PROVIDERS: ADMIT Hospitalist; ATTEND Hospitalist
PROC: 0BH17EZ Insertion of Endotracheal Airway into Trachea, Via Natural or Artificial Opening (ICD-10-PCS; 2019-05-18)
PROC: 5A1945Z Respiratory Ventilation, 24-96 Consecutive Hours (ICD-10-PCS; 2019-05-18)
PROC: 0D9670Z Drainage of Stomach with Drainage Device, Via Natural or Artificial Opening (ICD-10-PCS; 2019-05-18)
PROC: 02H633Z Insertion of Infusion Device into Right Atrium, Percutaneous Approach (ICD-10-PCS; 2019-05-19)
PROC: 3E0G76Z Introduction of Nutritional Substance into Upper GI, Via Natural or Artificial Opening (ICD-10-PCS; 2019-05-19)
PROC: 0W9930Z Drainage of Right Pleural Cavity with Drainage Device, Percutaneous Approach (ICD-10-PCS; 2019-05-19)
PROC: 0B9J8ZX Drainage of Left Lower Lung Lobe, Via Natural or Artificial Opening Endoscopic, Diagnostic (ICD-10-PCS; 2019-05-21)
PROC: 0BCB8ZZ Extirpation of Matter from Left Lower Lobe Bronchus, Via Natural or Artificial Opening Endoscopic (ICD-10-PCS; 2019-05-21)
PROC: 0BC68ZZ Extirpation of Matter from Right Lower Lobe Bronchus, Via Natural or Artificial Opening Endoscopic (ICD-10-PCS; 2019-05-21)
PROC: 0B9H8ZX Drainage of Lung Lingula, Via Natural or Artificial Opening Endoscopic, Diagnostic (ICD-10-PCS; principal; 2019-05-21 11:50)
PROC: 0B9F8ZX Drainage of Right Lower Lung Lobe, Via Natural or Artificial Opening Endoscopic, Diagnostic (ICD-10-PCS; 2019-05-21 11:50)
DX: A41.9 Sepsis, unspecified organism (principal); G93.41 Metabolic encephalopathy; J96.01 Acute respiratory failure with hypoxia; J96.02 Acute respiratory failure with hypercapnia; J86.9 Pyothorax without fistula; J15.6 Pneumonia due to other Gram-negative bacteria; J44.0 Chronic obstructive pulmonary disease with (acute) lower respiratory infection; J44.1 Chronic obstructive pulmonary disease with (acute) exacerbation; J91.8 Pleural effusion in other conditions classified elsewhere; T17.890A Other foreign object in other parts of respiratory tract causing asphyxiation, initial encounter; R64 Cachexia; R45.851 Suicidal ideations; E87.1 Hypo-osmolality and hyponatremia; F20.0 Paranoid schizophrenia; F31.30 Bipolar disorder, current episode depressed, mild or moderate severity, unspecified; Z68.1 Body mass index [BMI] 19.9 or less, adult; J98.11 Atelectasis; R65.20 Severe sepsis without septic shock; E88.09 Other disorders of plasma-protein metabolism, not elsewhere classified; R33.9 Retention of urine, unspecified; G60.9 Hereditary and idiopathic neuropathy, unspecified; Q38.5 Congenital malformations of palate, not elsewhere classified; F90.9 Attention-deficit hyperactivity disorder, unspecified type; R59.0 Localized enlarged lymph nodes; R19.7 Diarrhea, unspecified; G47.00 Insomnia, unspecified; F11.11 Opioid abuse, in remission; F15.11 Other stimulant abuse, in remission; F16.11 Hallucinogen abuse, in remission; F17.210 Nicotine dependence, cigarettes, uncomplicated; Z71.6 Tobacco abuse counseling; Z87.820 Personal history of traumatic brain injury; Z79.899 Other long term (current) drug therapy; Z86.14 Personal history of Methicillin resistant Staphylococcus aureus infection; Z59.0 Homelessness; Z98.890 Other specified postprocedural states; Z87.39 Personal history of other diseases of the musculoskeletal system and connective tissue; Z88.6 Allergy status to analgesic agent; Z91.018 Allergy to other foods; Z82.49 Family history of ischemic heart disease and other diseases of the circulatory system; Z81.1 Family history of alcohol abuse and dependence; Z80.3 Family history of malignant neoplasm of breast; Z82.41 Family history of sudden cardiac death
CPT/HCPCS: 31624; 31645; 36415; 36600; 71045; 71046; 71250; 71260; 80048; 80053; 80202; 80306; 80320; 80329; 81001; 82075; 82565; 82805; 82945; 83520; 83605; 83615; 84157; 85025; 85027; 87040; 87070; 87102; 87116; 87205; 87206; 87252; 87324; 87496; 87498; 87502; 87529; 87634; 87798; 88108; 88305; 89050; 93306; 94002; 94003; 94640; 94770; 96361; 96365; 96375; 99285

== ENCOUNTER 2019-06-19 15:50 | Observation (INO) | payer MEDICARE, OTHER ==
--- NOTE | 2019-06-19 16:49 | XR ---
EXAMINATION TYPE: XR chest 2V DATE OF EXAM: 06/19/2019 COMPARISON: 05/28/2019 HISTORY: Chest tube drainage TECHNIQUE: Frontal and lateral views of the chest are obtained. FINDINGS: There is consolidation and pleural fluid in the right middle lobe. Left lung is clear. The re is no heart failure. There is no pneumothorax. IMPRESSION: Right middle lobe masslike consolidation along the major fissure unchanged compared to l ast exam. Chronic right pleural effusion. No heart failure.
[2019-06-19] MEDS ORDERED: ALPRAZolam 1 MG TAB PO STA ×2 (16:57→19:56)
--- NOTE | 2019-06-19 17:02 | ED ---
General Adult HPI <Adair Gorman - Last Filed: 06/19/19 19:03> - General Source: patient Mode of arrival: EMS Limitations: no limitations <Andrew Cortez - Last Filed: 06/19/19 19:58> - General Chief complaint: Upper Respiratory Infection Stated complaint: infection Time Seen by Provider: 06/19/19 15:59 - History of Present Illness Initial comments: Patient is a 54-year-old male presenting to emergency Department with a chief complaint of drainage from chest tube site. Patient reports he was discharged from the hospital 2 weeks ago and had a chest tube removed on the right side. Patient reports she's had no issues until several days ago he noticed a "mass" where the chest tube was. Patient reports he noticed some drainage from the site is well which are covered with gauze. Patient reports he went to [facility] for a dressing over a period patient reports today he attempted a second fissure when he noticed large amounts of yellow discharge from the chest tube site. Patient denies any chest pain, shortness of breath, nausea vomiting fever or chills. (Andrew Cortez) - Related Data Home Medications Medication Instructions Recorded Confirmed Buprenorphine HCl [Subutex] 8 mg SL AC-TID 04/27/19 06/19/19 Doxepin HCl [SINEquan] 150 mg PO HS 04/27/19 06/19/19 Gabapentin 600 mg PO TID 04/27/19 06/19/19 Albuterol Sulfate [Proair Hfa] 1 - 2 puff INHALATION RT-Q6H PRN 06/19/19 06/19/19 Baclofen [Lioresal] 10 mg PO TID 06/19/19 06/19/19 Previous Rx's Medication Instructions Recorded Ipratropium-Albuterol Nebulize 3 ml INHALATION RT-QID ampul.neb 05/28/19 [Duoneb 0.5 mg-3 mg/3 ml Soln] Melatonin 5 mg PO HS #30 tablet 05/28/19 Nicotine 21Mg/24Hr Patch [Habitrol] 1 patch TRANSDERM DAILY #14 patch 05/28/19 amLODIPine [Norvasc] 5 mg PO DAILY #30 tab 05/28/19 Allergies Allergy/AdvReac Type Severity Reaction Status Date / Time Fish Containing Products Allergy Unknown Verified 06/19/19 16:59 [Fish] ibuprofen [From Motrin] AdvReac Nausea & Verified 06/19/19 16:59 Vomiting Review of Systems ROS Other: All systems not noted in ROS Statement are negative. <Adair Gorman - Last Filed: 06/19/19 19:03> ROS Other: All systems not noted in ROS Statement are negative. <Andrew Cortez - Last Filed: 06/19/19 19:58> ROS Statement: Those systems with pertinent positive or pertinent negative responses have been documented in the HPI. Past Medical History Past Medical History: COPD Additional Past Medical History / Comment(s): compartment syndrome to left lower leg, GI upset, NEUROPATHY. per old hx 2010- closed head injury 2006, recent fall-scabbed area to forehead. History of Any Multi-Drug Resistant Organisms: MRSA Date of last positivie culture/infection: ?2011 h&p MDRO Source:: no source provided Past Surgical History: Back Surgery Additional Past Surgical History / Comment(s): Surgery on Left Lower Leg for Compartment Syndrome November 2010, lt leg debridment had non healing wound/wound vac 2010- per old 2011 hx mrsa listed but no date or source.sinus sx. Past Anesthesia/Blood Transfusion Reactions: No Reported Reaction Past Psychological History: ADD/ADHD, Anxiety, Bipolar, Depression, Schizophrenia Additional Psychological History / Comment(s): poor historian. Smoking Status: Current every day smoker Past Alcohol Use History: None Reported Additional Past Alcohol Use History / Comment(s): 2 ppd x 32 years Past Drug Use History: None Reported Additional Drug Use History / Comment(s): Percocet and Xanax also per old 2010 h&p used heroin, ecstacy, amphetamines, benzodiazepines - Past Family History Father Family Medical History: Myocardial Infarction (MA) Additional Family Medical History / Comment(s): ETOH abuse, Cardiac Arrest at the age of 60 withdrawing from ETOH Mother Family Medical History: Congestive Heart Failure (CHF), Hypertension Additional Family Medical History / Comment(s): Breast Cancer that spread to the lymph nodes <Andrew Cortez - Last Filed: 06/19/19 19:58> General Exam Limitations: no limitations General appearance: alert, in no apparent distress Head exam: Present: atraumatic, normocephalic, normal inspection Eye exam: Present: normal appearance, PERRL, EOMI Pupils: Present: normal accommodation ENT exam: Present: normal exam, normal oropharynx, mucous membranes moist, TM's normal bilaterally, normal external ear exam Neck exam: Present: normal inspection, full ROM Respiratory exam: Present: normal lung sounds bilaterally, chest wall tenderness (Very mild chest wall tenderness at the previous site of the chest tube.), other (Yellow discharge from previous chest tube site.) Cardiovascular Exam: Present: regular rate, normal rhythm, normal heart sounds Extremities exam: Present: normal inspection, full ROM Back exam: Present: normal inspection, full ROM Neurological exam: Present: alert, oriented X3 Psychiatric exam: Present: normal affect, normal mood Skin exam: Present: warm, intact, normal color <Andrew Cortez - Last Filed: 06/19/19 19:58> Course Vital Signs 06/19/19 06/19/19 06/19/19 16:00 16:08 18:08 Temperature 99.2 F Pulse Rate 70 74 Respiratory 16 16 18 Rate Blood Pressure 105/62 126/85 O2 Sat by Pulse 99 96 Oximetry Medical Decision Making - Lab Data Result diagrams: 06/19/19 17:00 06/19/19 17:00 <Adair Gorman - Last Filed: 06/19/19 19:03> - Lab Data Result diagrams: 06/19/19 17:00 06/19/19 17:00 <Andrew Cortez - Last Filed: 06/19/19 19:58> - Medical Decision Making I, Nathaniel Gorman, personally saw and examined the patient. I have reviewed and agree with the PA findings, including all diagnostic interpretations and treatment plans as written unless otherwise stated. I was present for the mcclellan portions of any procedures performed and the inclusive time noted for any critical care statement. (Adair Gorman) Patient is a 54-year-old male presenting to emergency Department with a chief complaint of drainage from chest tube site. On initial evaluation patient does appear to have a thick, yellow mucous-like discharge from the site of the chest tube. There is very mild surrounding erythema although does not appear to be infected. CBC does not indicate leukocytosis. Lactic is within normal range. Blood and wound cultures sent. Chest x-ray is indicative of a consolidated mass at the site of the chest tube although there appears to be minimal changes from the last chest x-ray. There is chronic pleural effusion. Patient was also complaining of left-sided leg swelling. Ultrasound for DVT was negative. Patient given antibiotics and Xanax, analgesia. Patient will be admitted for further medical evaluation. Dr. Gorman also examined the patient and is in agreement with the treatment plan. Admitting physician is Dr. Navarrete. CT surgery consulted. Pulmonology consulted. (Andrew Cortez) - Lab Data Lab Results 06/19/19 06/19/19 06/19/19 Range/Units 17:00 17:00 17:30 WBC 8.9 (3.8-10.6) k/uL RBC 3.08 L (4.30-5.90) m/uL Hgb 9.3 L (13.0-17.5) gm/dL Hct 29.4 L (39.0-53.0) % MCV 95.5 (80.0-100.0) fL MCH 30.2 (25.0-35.0) pg MCHC 31.6 (31.0-37.0) g/dL RDW 14.8 (11.5-15.5) % Plt Count 476 H (150-450) k/uL Neutrophils % 73 % Lymphocytes % 16 % Monocytes % 4 % Eosinophils % 4 % Basophils % 1 % Neutrophils # 6.5 (1.3-7.7) k/uL Lymphocytes # 1.4 (1.0-4.8) k/uL Monocytes # 0.4 (0-1.0) k/uL Eosinophils # 0.4 (0-0.7) k/uL Basophils # 0.0 (0-0.2) k/uL Hypochromasia Slight Sodium 140 (137-145) mmol/L Potassium 4.6 (3.5-5.1) mmol/L Chloride 106 (98-107) mmol/L Carbon Dioxide 27 (22-30) mmol/L Anion Gap 7 mmol/L BUN 7 L (9-20) mg/dL Creatinine 0.41 L (0.66-1.25) mg/dL Est GFR (CKD-EPI)AfAm >90 (>60 ml/min/1.73 sqM) Est GFR (CKD-EPI)NonAf >90 (>60 ml/min/1.73 sqM) Glucose 86 (74-99) mg/dL Plasma Lactic Acid Jared 1.3 (0.7-2.0) mmol/L Calcium 8.4 (8.4-10.2) mg/dL Total Bilirubin 0.3 (0.2-1.3) mg/dL AST 25 (17-59) U/L ALT 18 L (21-72) U/L Alkaline Phosphatase 70 (38-126) U/L Total Protein 7.0 (6.3-8.2) g/dL Albumin 3.0 L (3.5-5.0) g/dL Urine Color Urine Appearance (Clear) Urine pH (5.0-8.0) Ur Specific [place] (1.001-1.035) Urine Protein (Negative) Urine Glucose (UA) (Negative) Urine Ketones (Negative) Urine Blood (Negative) Urine Nitrite (Negative) Urine Bilirubin (Negative) Urine Urobilinogen (<2.0) mg/dL Ur Leukocyte Esterase (Negative) 06/19/19 Range/Units 17:30 WBC (3.8-10.6) k/uL RBC (4.30-5.90) m/uL Hgb (13.0-17.5) gm/dL Hct (39.0-53.0) % MCV (80.0-100.0) fL MCH (25.0-35.0) pg MCHC (31.0-37.0) g/dL RDW (11.5-15.5) % Plt Count (150-450) k/uL Neutrophils % % Lymphocytes % % Monocytes % % Eosinophils % % Basophils % % Neutrophils # (1.3-7.7) k/uL Lymphocytes # (1.0-4.8) k/uL Monocytes # (0-1.0) k/uL Eosinophils # (0-0.7) k/uL Basophils # (0-0.2) k/uL Hypochromasia Sodium (137-145) mmol/L Potassium (3.5-5.1) mmol/L Chloride (98-107) mmol/L Carbon Dioxide (22-30) mmol/L Anion Gap mmol/L BUN (9-20) mg/dL Creatinine (0.66-1.25) mg/dL Est GFR (CKD-EPI)AfAm (>60 ml/min/1.73 sqM) Est GFR (CKD-EPI)NonAf (>60 ml/min/1.73 sqM) Glucose (74-99) mg/dL Plasma Lactic Acid Jared (0.7-2.0) mmol/L Calcium (8.4-10.2) mg/dL Total Bilirubin (0.2-1.3) mg/dL AST (17-59) U/L ALT (21-72) U/L Alkaline Phosphatase (38-126) U/L Total Protein (6.3-8.2) g/dL Albumin (3.5-5.0) g/dL Urine Color Yellow Urine Appearance Clear (Clear) Urine pH 8.0 (5.0-8.0) Ur Specific [place] 1.012 (1.001-1.035) Urine Protein Negative (Negative) Urine Glucose (UA) Negative (Negative) Urine Ketones Negative (Negative) Urine Blood Negative (Negative) Urine Nitrite Negative (Negative) Urine Bilirubin Negative (Negative) Urine Urobilinogen <2.0 (<2.0) mg/dL Ur Leukocyte Esterase Negative (Negative) Disposition <Adair Gorman - Last Filed: 06/19/19 19:03> Is patient prescribed a controlled substance at d/c from ED?: No Time of Disposition: 19:54 <Andrew Cortez - Last Filed: 06/19/19 19:58> Clinical Impression: Complication of chest tube Disposition: ADMITTED IP TO THIS HOSP Condition: Stable Instructions (If sedation given, give patient instructions): Chest Tubes (DC) Additional Instructions: Patient will be admitted Referrals: Basil Srinivasan MD [Primary Care Provider] - 1-2 days
[2019-06-19 17:16] LABS: Basophils % (A) 1 %; Eosinophils # (A) 0.4 k/uL (0-0.7); Eosinophils % (A) 4 %; HCT 29.4 % (39.0-53.0); HGB 9.3 gm/dL (13.0-17.5); Hypochromasia Slight; Lymphocytes # (A) 1.4 k/uL (1.0-4.8); Lymphocytes % (A) 16 %; MCH 30.2 pg (25.0-35.0); MCHC 31.6 g/dL (31.0-37.0); MCV 95.5 fL (80.0-100.0); Monocytes # (A) 0.4 k/uL (0-1.0); Monocytes % (A) 4 %; Neutrophils # (A) 6.5 k/uL (1.3-7.7); Neutrophils % (A) 73 %; Platelet Count 476 k/uL (150-450); RBC 3.08 m/uL (4.30-5.90); RDW 14.8 % (11.5-15.5); WBC 8.9 k/uL (3.8-10.6)
[2019-06-19 17:17] LABS: ALT 18 U/L (21-72); AST 25 U/L (17-59); African American GFR (CKD) >90 (>60 ml/min/1.73 sqM); Alkaline Phosphatase 70 U/L (38-126); Anion Gap 7 mmol/L; Blood Urea Nitrogen 7 mg/dL (9-20); Calcium 8.4 mg/dL (8.4-10.2); Carbon Dioxide 27 mmol/L (22-30); Chloride 106 mmol/L (98-107); Glucose 86 mg/dL (74-99); Non-African American GFR(CKD) >90 (>60 ml/min/1.73 sqM); Potassium 4.6 mmol/L (3.5-5.1); Sodium 140 mmol/L (137-145); Total Bilirubin 0.3 mg/dL (0.2-1.3)
[2019-06-19] MEDS ORDERED: HYDROcodone/APAP 5-325MG 1 EACH TAB PO STA (17:47)
[2019-06-19 18:20] LABS: Appearance,Urine Clear (Clear); Bilirubin,Urine Negative (Negative); Blood,Urine Negative (Negative); Color,Urine Yellow; Glucose,Urine (UA) Negative (Negative); Ketones,Urine Negative (Negative); Leukocyte Esterase,Urine Negative (Negative); Nitrite,Urine Negative (Negative); Protein,Urine Negative (Negative); Specific Gravity,Urine 1.012 (1.001-1.035); Urobilinogen,Urine <2.0 mg/dL (<2.0)
[2019-06-19] MEDS ORDERED: MORPHINE SULFATE 4 MG/ML SYRINGE IV PRN (19:18)
[2019-06-19] MEDS ORDERED: NALOXONE 0.4 MG/ML 1 ML VIAL IV PRN (19:18)
[2019-06-19] MEDS ORDERED: VANCOMYCIN 1,250 MG in SODIUM CHLORIDE 0.9% 250 ML IVPB STA (19:24)
[2019-06-19] MEDS ORDERED: cefTRIAXone IN SWFI 1,000 MG/10 ML SYRINGE IVP STA (19:24)
--- NOTE | 2019-06-19 19:35 | US ---
EXAMINATION TYPE: US venous doppler duplex LE LT DATE OF EXAM: 06/19/2019 7:03 PM COMPARISON: US 2016 CLINICAL HISTORY: swelling . Swelling x 2 weeks. NO hx of DVT. Patient does not take blood thinners. SIDE PERFORMED: Left TECHNIQUE: The lower extremity deep venous system is examined utilizing real time linear array sonog faustino with graded compression, doppler sonography and color-flow sonography. VESSELS IMAGED: External Iliac Vein (EIV) Common Femoral Vein Deep Femoral Vein Greater Saphenous Vein * Femoral Vein Popliteal Vein Small Saphenous Vein * Proximal Calf Veins (* superficial vessels) Left Leg: No evidence of DVT in veins imaged from prox calf veins to EIV. Hypoechoic areas with hype rechoic centers and vascular ghazala seen within the left groin, largest measurin.1 x 1.7 x 0.9 cm. IMPRESSION: Left inguinal lymph nodes are seen. No evidence of deep venous thrombosis in the left le g.
[2019-06-19] MEDS: SODIUM CHLORIDE 0.9% 1,000 ML IV SCH (19:51)
[2019-06-19] MEDS: HYDROcodone/APAP 5-325MG 1 EACH TAB PO PRN (22:27)
[2019-06-20 00:03] VITALS: RESP 20
[2019-06-20 05:35] VITALS: BP 117/71; PULSE 71; TEMP 97.9
[2019-06-20] MEDS: LORazepam 0.5 MG TAB PO PRN ×2 (05:35→09:31)
[2019-06-20] MEDS: HYDROcodone/APAP 5-325MG 1 EACH TAB PO PRN ×2 (05:36→10:03)
[2019-06-20] MEDS: SODIUM CHLORIDE 0.9% 1,000 ML IV SCH (07:40)
[2019-06-20] MEDS ORDERED: NICOTINE 21MG/24HR PATCH TRANSDERM SCH (09:30)
--- NOTE | 2019-06-20 12:47 | P.GSCN ---
History of Present Illness Consult date: 06/20/19 Reason for Consult: Purulent drainage from previous chest tube insertion site. Requesting physician: Andrew Cortez History of present illness: This is a 54-year-old gentleman who follows with Dr. Srinivasan and [facility] on an outpatient basis. His past medical history significant for chronic ongoing tobacco dependence, history of closed head injury, COPD, paranoid schizophrenia, bipolar disorder, narcotic and illicit drug use and recent community-acquired bacterial pneumonia with acute respiratory failure. The patient was discharged home on 05/28/2019. The patient reports that he has been doing quite well recovering at home until about 2 days ago when he noticed he had a "mass" to his old right pleural chest tube insertion site. He denies any recent complaints of fever, chills, cough, shortness of breath, pain, diarrhea, or constipation. He states that he was seen by Dr. Srinivasan on , June 17 2019 and was started on an antibiotic amoxicillin for suspected right lower lobe pneumonia. He was seen on follow-up at [facility] yesterday where he complained of drainage from his old left chest tube insertion site. Subsequently the patient was transferred to [facility] emergency department via EMS due to the drainage. The patient describes the drainage from the chest tube site as greenish and smelly. In the emergency department a chest x-ray was completed which the report demonstrated a right middle lobe masslike consolidation which was unchanged from the last exam. It also demonstrated a chronic right pleural effusion. While in the emergency Department the patient also complained of swelling to his left lower extremity. A venous Doppler study was completed which was negative for evidence of deep vein thrombosis, although did show some left inguinal lymph nodes. The patient was admitted for further evaluation and treatment. A consult was placed to Dr. Batsheva Hatch from cardiothoracic surgery due to his recent chest tube and drainage from his chest tube insertion site. Review of Systems A 14 point review systems was completed and was negative except as noted in the HPI. Past Medical History Past Medical History: COPD, Pneumonia Additional Past Medical History / Comment(s): compartment syndrome to left lower leg, GI upset, NEUROPATHY. per old hx 2010- closed head injury 2006, chest tube 05/2019 History of Any Multi-Drug Resistant Organisms: MRSA Year Discovered:: ?2010 h&p MDRO Source:: no source provided Past Surgical History: Back Surgery Additional Past Surgical History / Comment(s): Surgery on Left Lower Leg for Compartment Syndrome November 2010, lt leg debridment had non healing wound/wound vac 2010- per old 2010 hx mrsa listed but no date or source.sinus sx, recent chest tube insertion in May 2019, recent bronchoscopy with bronchial alveolar lavage in May 2019.. Past Anesthesia/Blood Transfusion Reactions: No Reported Reaction Past Psychological History: ADD/ADHD, Anxiety, Bipolar, Depression, Schizophrenia Additional Psychological History / Comment(s): poor historian. Smoking Status: Current every day smoker Past Alcohol Use History: None Reported Additional Past Alcohol Use History / Comment(s): 2 ppd x 32 years Past Drug Use History: None Reported Additional Drug Use History / Comment(s): Percocet and Xanax also per old 2010 h&p used heroin, ecstacy, amphetamines, benzodiazepines - Past Family History Father Family Medical History: Myocardial Infarction (OR) Additional Family Medical History / Comment(s): ETOH abuse, Cardiac Arrest at the age of 60 withdrawing from ETOH Mother Family Medical History: Congestive Heart Failure (CHF), Hypertension Additional Family Medical History / Comment(s): Breast Cancer that spread to the lymph nodes Medications and Allergies Home Medications Medication Instructions Recorded Confirmed Type Buprenorphine HCl [Subutex] 8 mg SL AC-TID 04/27/19 06/19/19 History Doxepin HCl [SINEquan] 150 mg PO HS 04/27/19 06/19/19 History Gabapentin 600 mg PO TID 04/27/19 06/19/19 History Ipratropium-Albuterol Nebulize 3 ml INHALATION RT-QID ampul.neb 05/28/19 06/19/19 Rx [Duoneb 0.5 mg-3 mg/3 ml Soln] Melatonin 5 mg PO HS #30 tablet 05/28/19 06/19/19 Rx Nicotine 21Mg/24Hr Patch [Habitrol] 1 patch TRANSDERM DAILY #14 patch 05/28/19 06/19/19 Rx amLODIPine [Norvasc] 5 mg PO DAILY #30 tab 05/28/19 06/19/19 Rx Albuterol Sulfate [Proair Hfa] 1 - 2 puff INHALATION RT-Q6H PRN 06/19/19 06/19/19 History Baclofen [Lioresal] 10 mg PO TID 06/19/19 06/19/19 History Acetaminophen Tab [Tylenol Tab] 500 mg PO Q6H PRN #30 tablet 06/20/19 Rx Sulfamethox-Tmp 800-160Mg [Bactrim 1 tab PO Q12HR #20 tab 06/20/19 Rx DS 800-160 mg] Allergies Allergy/AdvReac Type Severity Reaction Status Date / Time Fish Containing Products Allergy Unknown Verified 06/19/19 16:59 [Fish] ibuprofen [From Motrin] AdvReac Nausea & Verified 06/19/19 16:59 Vomiting Surgical - Exam Vital Signs Temp Pulse Resp BP Pulse Ox 99.2 F 70 16 105/62 99 06/19/19 16:00 06/19/19 16:00 06/19/19 16:00 06/19/19 16:00 06/19/19 16:00 - General no distress, no pain, cachectic - Eyes PERRL, normal ocular movement - ENT normal pinna, normal nares, normal mucosa, no hearing loss, no congestion, dentures - Neck Neck is supple, no lymphadenopathy. no masses, no bruits, trachea midline, no venous distension - Respiratory Lung sounds are essentially clear throughout, diminished to his right lower lobe. Respirations are symmetrical and nonlabored. No wheezes, crackles or rhonchi appreciated. - Cardiovascular Regular rhythm and rate. S1 and S2 present, negative for S3, gallop or murmur. +1 edema to his left lower extremity. - Abdomen Abdomen is soft, nontender and nondistended. Active bowel sounds present in all 4 abdominal quadrants. No guarding or rigidity. No organomegaly appreciated. - Genitourinary Deferred - Rectum Deferred - Integumentary Right chest previous chest tube insertion site with light green colored drainage present to the dressing. Scant erythema surrounding his chest tube insertion site. no rash, no growths, no abnormal pigmentation - Neurologic normal coordination, normal sensation - Musculoskeletal Generalized weakness. Strength equal bilaterally. normal posture - Psychiatric oriented to time, oriented to person, oriented to place, speech is normal, memory intact Results - Labs 06/19/19 17:00 06/19/19 17:00 Abnormal Lab Results - Last 24 Hours (Table) 06/19/19 06/19/19 Range/Units 17:00 17:00 RBC 3.08 L (4.30-5.90) m/uL Hgb 9.3 L (13.0-17.5) gm/dL Hct 29.4 L (39.0-53.0) % Plt Count 476 H (150-450) k/uL BUN 7 L (9-20) mg/dL Creatinine 0.41 L (0.66-1.25) mg/dL ALT 18 L (21-72) U/L Albumin 3.0 L (3.5-5.0) g/dL Microbiology - Last 24 Hours (Table) 06/19/19 17:30 Gram Stain - Preliminary Chest Wound Culture - Preliminary Diabetes panel 06/19/19 Range/Units 17:00 Sodium 140 (137-145) mmol/L Potassium 4.6 (3.5-5.1) mmol/L Chloride 106 (98-107) mmol/L Carbon Dioxide 27 (22-30) mmol/L BUN 7 L (9-20) mg/dL Creatinine 0.41 L (0.66-1.25) mg/dL Glucose 86 (74-99) mg/dL Calcium 8.4 (8.4-10.2) mg/dL AST 25 (17-59) U/L ALT 18 L (21-72) U/L Alkaline Phosphatase 70 (38-126) U/L Total Protein 7.0 (6.3-8.2) g/dL Albumin 3.0 L (3.5-5.0) g/dL Calcium panel 06/19/19 Range/Units 17:00 Calcium 8.4 (8.4-10.2) mg/dL Albumin 3.0 L (3.5-5.0) g/dL Pituitary panel 06/19/19 Range/Units 17:00 Sodium 140 (137-145) mmol/L Potassium 4.6 (3.5-5.1) mmol/L Chloride 106 (98-107) mmol/L Carbon Dioxide 27 (22-30) mmol/L BUN 7 L (9-20) mg/dL Creatinine 0.41 L (0.66-1.25) mg/dL Glucose 86 (74-99) mg/dL Calcium 8.4 (8.4-10.2) mg/dL Adrenal panel 06/19/19 Range/Units 17:00 Sodium 140 (137-145) mmol/L Potassium 4.6 (3.5-5.1) mmol/L Chloride 106 (98-107) mmol/L Carbon Dioxide 27 (22-30) mmol/L BUN 7 L (9-20) mg/dL Creatinine 0.41 L (0.66-1.25) mg/dL Glucose 86 (74-99) mg/dL Calcium 8.4 (8.4-10.2) mg/dL Total Bilirubin 0.3 (0.2-1.3) mg/dL AST 25 (17-59) U/L ALT 18 L (21-72) U/L Alkaline Phosphatase 70 (38-126) U/L Total Protein 7.0 (6.3-8.2) g/dL Albumin 3.0 L (3.5-5.0) g/dL - Imaging Chest x-ray: report reviewed, image reviewed Assessment and Plan Assessment: 1. Scant erythema and drainage to his chest tube insertion site 2. History of recent sepsis secondary to multilobular community-acquired pneumonia 3. History of recent hypoxic respiratory failure requiring intubation and mechanical ventilation support 4. Chronic and ongoing tobacco dependence 5. Chronic obstructive pulmonary disease 6. Schizophrenia 7. Bipolar disorder 8. History of closed an injury 9. History of compartment syndrome of the left lower extremity Plan: The patient was seen and examined at his bedside on the fourth floor medical surgical unit. His chart and diagnostics reviewed. His case was discussed with Dr. Batsheva Hatch from cardiothoracic surgery. The patient has scant erythema to his chest tube site with scant yellowish/light green drainage. He remains afebrile, and has a normal white count of 8.9 and his lactic acid is 1.3 which is within normal limits. No surgical intervention is warranted at this time, agree with antibiotic management. Medical management and other comorbidities per primary care service. Pulmonary management per Dr. Murillo's recommendations. Discussed with the patient the importance of smoking cessation. Thank you for this consult and we will follow the patient on an as-needed basis. Time with Patient: Greater than 30
--- NOTE | 2019-06-20 14:38 | CONS ---
CONSULTATION PULMONARY/CRITICAL CARE CONSULTATION: DATE OF SERVICE: 06/20/2019 This is a 54-year-old male who presented to the emergency department via EMS with the chief complaints of drainage from the chest tube site. He apparently was discharged from this hospital 2 weeks ago and had a chest tube secondary to a previous surgical procedure in the right chest. He apparently had a complicated parapneumonic effusion. Anyway, the patient states that things were going on well when he noticed an abnormal area in the right chest and he also noted some drainage from the site as well. The drainage was yellow in color. Apparently it was covering the gauze over the wound site and also on his shirt. He denies any fever or chills. Denies any pain. The patient states that he wanted to be checked out. He states he did complete all of the antibiotics that he was given when he was discharged from the hospital. The patient states that he is still smoking cigarettes. Currently, the patient is doing well. He is not having any respiratory distress or chest discomfort. He is not requiring any supplemental oxygen. He was seen by Cardiothoracic Surgery, who did the procedure on the prior admission. . HOME MEDICATIONS: Include Subutex, Sinequan, gabapentin, ProAir HFA, baclofen, nebulizer machine with DuoNeb, melatonin, nicotine patch, and amlodipine. ALLERGIES: Include fish containing products and ibuprofen. PAST MEDICAL HISTORY: Includes COPD, compartment syndrome to the left lower leg, neuropathy, close head injury, and a recent episode of right lung pneumonia with complex loculated thick rind and fluid collection status post placement of a right-sided chest tube. Other medical history includes a previous MRSA infection. SURGICAL HISTORY: Includes back surgery, left leg surgery for compartment syndrome, right chest tube placement and some other minor procedures. SOCIAL HISTORY: Positive for current tobacco use. He smokes 2 packs a day for 32 years. He denies any alcohol use. Denies any illicit drugs. According to an old H and P, the patient has had previous use of heroin, ecstasy, amphetamines, and benzodiazepines. FAMILY HISTORY: Positive for father with myocardial infarction, alcohol abuse, cardiac arrest and mother who has a history of congestive heart failure, hypertension, and breast cancer. REVIEW OF SYSTEMS: CONSTITUTIONAL: Negative. NEUROLOGIC: Negative. HEENT: Negative. CARDIOVASCULAR: Negative, PULMONARY: Drainage from the previous right chest tube site. GI: Negative. : Negative. RHEUMATOLOGIC: Negative. IMMUNOLOGIC: Negative. ENDOCRINOLOGIC: Negative. DERMATOLOGIC: Negative. Current vital signs are reviewed. Temperature is 97.9, heart rate 71, respiratory rate 20, blood pressure 117/71, mean 86, room air saturation 95%. Appears in no acute distress. HEENT examination is grossly unremarkable. Mucous membranes are moist. No oral lesions. NECK: Supple. Full range of motion. No adenopathy. Neck veins are flat. CARDIOVASCULAR: Examination reveals regular rhythm and rate. S1, S2 normal. No S3, S4, murmur. LUNGS: Reveal diminished breath sounds bilaterally. There are a few scattered rhonchi. No wheezes or crackles. The right chest tube site is covered with a bandage. No tenderness on palpation. ABDOMEN: Soft. Bowel sounds are heard. EXTREMITIES: Intact. No cyanosis, clubbing, or edema. SKIN: Without rash. NEUROLOGIC: Examination is brief but nonfocal. There was a gram stain done of the site on the right. It showed few PMNs and rare gram- positive cocci. LAB DATA: Reviewed. White count 8.9, hemoglobin 9.3, hematocrit 29.4, platelet count 476,000. Sodium 140, potassium 4.6, chloride 106, CO2 is 27, anion gap is 7. BUN and creatinine were 7 and 0.41. Urine is negative. The patient had a venous Doppler study. It was negative for DVT in the left leg. Also, the patient had a chest x-ray yesterday which showed a right middle lobe masslike consolidation along the major fissure, unchanged compared to the last examination. There is a small chronic right-sided pleural effusion. Current medications are reviewed. Currently just on Xanax, Rocephin, vancomycin and [place]. ASSESSMENT: 1. Purulent drainage from the old chest tube site on the right, in a patient with a previous episode of pneumonia and complicated parapneumonic effusion. 2. History of chronic obstructive pulmonary disease. 3. Ongoing tobacco use and nicotine addiction. 4. Compartment syndrome, left leg. 5. History of neuropathy. 6. History of closed head injury. 7. Previous history of methicillin-resistant Staphylococcus aureus infection. PLAN: The patient could be discharged home. He looks pretty stable. He is not having any pain or difficulty breathing. He should go home on some antibiotics. We recommend either Augmentin or Bactrim. Additional recommendations and suggestions are forthcoming. He should follow up with his primary doctor who I believe is Dr. Srinivasan. In addition, we would be happy to see him in the clinic post discharge. MMODL / IJN: [id number] /
--- NOTE | 2019-06-20 19:50 | HP ---
HISTORY AND PHYSICAL COMBINATION HISTORY AND PHYSICAL AND DISCHARGE SUMMARY: DATE OF SERVICE: 06/20/2019 CHIEF COMPLAINT: Drainage from the right chest tube site. HISTORY OF PRESENT ILLNESS: This 54-year-old gentleman with a past medical history of multiple medical problems, including COPD, history of pneumonia, history of compartment syndrome of the right leg, superficial neuropathy, history of closed-head injury, history of chest tube, history of MRSA, history of ADD, ADHD, history of anxiety, bipolar, depression, schizophrenia, history of nicotine dependence, being followed by Dr. Srinivasan in the outpatient setting, was admitted with complaints of drainage from the right chest tube site. The patient apparently noticed a mass where the chest tube was and subsequently noticed some drainage causing the gauze to be wet, and the patient came to [facility] and was admitted for further evaluation and treatment. The patient has multiple psychiatric issues, also. A cardiothoracic evaluation has been held, and at this time apparently the patient is refusing any surgery. Dr. Murillo from Pulmonology saw the patient and cleared the patient for discharge. The patient is being closely monitored. There is no history of any fever, rigor or chills. No history of headache, loss of consciousness, seizures. PAST MEDICAL HISTORY: 1. History of pneumonia. 2. History of parapneumonic effusion on the right. 3. History of chest tube drainage. 4. History of COPD. 5. Compartment syndrome. 6. History ADD, ADHD. 7. Anxiety. 8. Bipolar. 9. Depression. 10.Schizophrenia. HOME MEDICATIONS: 1. Norvasc 5 mg p.o. daily. 2. Habitrol 21 daily. 3. Melatonin. 4. DuoNeb q.i.d. and p.r.n. 5. Gabapentin 600 mg p.o. t.i.d. 6. Doxepin 150 mg at bedtime. 7. Subutex 8 mg before meals t.i.d. 8. Lioresal 10 mg p.o. t.i.d. 9. ProAir 1-2 puffs q.6 p.r.n. 10.Tylenol p.r.n. ALLERGIES: FISH-CONTAINING PRODUCTS and MOTRIN. FAMILY HISTORY: History of myocardial infarction, ETOH abuse, cardiac arrest from withdrawal from ETOH. SOCIAL HISTORY: No history of alcohol. Continued and ongoing nicotine dependence. REVIEW OF SYSTEMS: ENT: No diminished hearing. No diminished vision. CARDIOVASCULAR SYSTEM: As mentioned earlier. RESPIRATORY SYSTEM: As mentioned earlier. GI: No nausea, vomiting. : No dysuria or retention. NERVOUS SYSTEM: As mentioned earlier. ALLERGY/IMMUNOLOGY: No asthma, hayfever. MUSCULOSKELETAL: As mentioned earlier. HEMATOLOGY/ONCOLOGY: No history of anemia. ENDOCRINE: No history of diabetes, hypothyroidism. CONSTITUTIONAL: As mentioned earlier. DERMATOLOGY: Negative. RHEUMATOLOGY: Negative. PSYCHIATRY: As mentioned earlier. PHYSICAL EXAMINATION: Patient alert and oriented x3. Pulse 71, blood pressure 117/71, respiration 20, temperature 97.9, pulse ox 94% on room air. HEENT: Conjunctivae normal. Oral mucosa moist. NECK: No jugular venous distention. No carotid bruit. No lymph node enlargement. CARDIOVASCULAR SYSTEM: S1, S2 muffled. No S3. No S4. RESPIRATORY SYSTEM: Breath sounds diminished at the bases. A few scattered rhonchi and crackles, especially on the right more than the left. ABDOMEN: Soft, non-tender. No mass palpable. Scaphoid. LEGS: No edema. No swelling. NERVOUS SYSTEM: Higher functions as mentioned earlier. Moves all 4 limbs. No focal motor or sensory deficit. LYMPHATICS: No lymph node palpable in neck, axillae or groin. SKIN: No ulcer, rash, bleeding. JOINTS: No active deforming arthropathy. EXAMINATION OF THE RIGHT CHEST: Minimal drainage at the chest tube site present. LABS: WBC 8.9, hemoglobin 9.3. Sodium 140, potassium 4.6. Albumin is 3. Cultures are negative so far. Previous culture showed Viridiana albicans from the fungal cultures and sputum cultures peptostreptococci and enterobacter. ASSESSMENT: 1. Continued drainage from the right thoracostomy site. Rule out complicated parapneumonic effusion or empyema. 2. History of right-sided pneumonia with parapneumonic effusion with chest tube drainage. 3. Anemia, normocytic; anemia of chronic disease. 4. Chronic obstructive pulmonary disease. 5. History of compartment syndrome. 6. History of peripheral neuropathy. 7. History of closed-head injury. 8. History of methicillin-resistant Staphylococcus aeruginosa. 9. History of recent chest tube. 10.History attention-deficit disorder/attention deficit hyperactivity disorder. 11.Anxiety, bipolar, depression, schizophrenia. 12.History of continued ongoing nicotine dependence. RECOMMENDATIONS AND DISCUSSION: This 54-year-old gentleman who was admitted with multiple medical issues has been evaluated by Cardiothoracic Surgery and Pulmonology. At this time the patient is not willing for any surgery. I had a detailed discussion with Cardiothoracic Surgery, Denilson, who will be following the patient in the outpatient setting. Otherwise, at this time Dr. Murillo also cleared the patient for discharge with the following advice and medications. Please refer to the consult notes and staff notes for further details. The patient is extremely keen on going home at this time. Discharge recommendations are as follows: 1. Diet is cardiac. 2. Activity limited until followup. 3. Follow up with primary physician in 2-3 days. 4. Follow up with Dr. Paz, Dr. Mckoy and Dr. Murillo as recommended. 5. Gabapentin 600 mg p.o. t.i.d. 6. Lioresal 10 mg p.o. t.i.d. 7. Albuterol 1-2 puffs q.6 p.r.n. 8. Sinequan 150 mg at bedtime. 9. Subutex 8 mg before meals t.i.d. 10.Bactrim DS 1 p.o. b.i.d. for 10 days. 11.DuoNeb q.i.d. 12.Habitual 21 daily. 13.Melatonin 5 mg at bedtime. 14.Norvasc 5 mg p.o. daily. 15.Tylenol p.r.n. Once again, the patient will be discharged in stable condition with guarded prognosis. MMODL / IJN: [id number] /
== END 2019-06-20 13:14 | disposition home health service (06) ==
LOC: EC 15:50 → 4MS4W 22:17
PROVIDERS: ADMIT Hospitalist; ATTEND Hospitalist
DX: T81.89XA Other complications of procedures, not elsewhere classified, initial encounter (principal); J91.8 Pleural effusion in other conditions classified elsewhere; R22.42 Localized swelling, mass and lump, left lower limb; J44.9 Chronic obstructive pulmonary disease, unspecified; F17.210 Nicotine dependence, cigarettes, uncomplicated; G62.9 Polyneuropathy, unspecified; F20.0 Paranoid schizophrenia; F31.9 Bipolar disorder, unspecified; F90.9 Attention-deficit hyperactivity disorder, unspecified type; F41.9 Anxiety disorder, unspecified; Z79.899 Other long term (current) drug therapy; Z88.6 Allergy status to analgesic agent; Z91.018 Allergy to other foods; Z86.14 Personal history of Methicillin resistant Staphylococcus aureus infection; Z87.820 Personal history of traumatic brain injury; Z86.69 Personal history of other diseases of the nervous system and sense organs; Z87.898 Personal history of other specified conditions; Z87.01 Personal history of pneumonia (recurrent); Z82.49 Family history of ischemic heart disease and other diseases of the circulatory system; Z81.1 Family history of alcohol abuse and dependence; Z82.41 Family history of sudden cardiac death; Z80.3 Family history of malignant neoplasm of breast
CPT/HCPCS: 96375 ×2; 96365; 96366; 99285; 36415; 80053; 83605; 85025; 81003; 87040; 87070; 87205; 71046; 93971; G0378 ×2; S4990; J3370; J2270; J0696

== ENCOUNTER → 2021-01-04 | Outpatient (CLI) | payer MEDICARE, OTHER ==
--- NOTE | 2021-01-04 10:55 | MR ---
EXAMINATION TYPE: MR lumbar spine wo con DATE OF EXAM: 01/04/2021 COMPARISON: NONE HISTORY: Low back pain that goes down right leg. TECHNIQUE: Multiplanar, multisequence imaging of the lumbar spine is performed without IV contrast. FINDINGS: There is S-shaped scoliosis levoconvex centered at L3-L4 level. Sagittal images of the lumb ar spine show straightened alignment. Vertebral body heights are maintained. Multilevel disc desiccat ion. Mild to moderate multilevel disc space narrowing. Heterogeneous Modic type I endplate changes a t L3-L4 level where there is more moderate to borderline severe disc narrowing greatest right aspect. The conus medullaris is normal in position and signal ending inferior L1 level. Axial images T12-L1 level show mild to moderate broad disc bulge mildly effaces the anterior thecal s ac. Axial images at L1-L2 level show [id number] lobulated broad-based posterior disc protrusion mil dly facing anterior thecal sac, there is mild left sided anterior inferior neural foraminal narrowing . Axial images at L2-L3 level moderate broad disc bulge and mild to moderate right greater than left fa cet arthropathy. There is effacement of the anterior and right posterior lateral thecal sac. There is moderate right and mild left-sided neural foraminal narrowing. Axial images at L3-L4 level show mild/moderate facet arthropathy bilaterally. There is mild broad dis c bulge with right paracentral disc protrusion component, there is moderate right and no significant left-sided neural foraminal narrowing. Axial images at L4-L5 mild facet arthropathy bilaterally. There is broad-based posterior disc protrus ion with central disc protrusion component mildly effaces the anterior thecal sac. There is right for aminal spur disc complex causing moderate right-sided neural foraminal narrowing and some encroachmen t on right L4 nerve sagittal image 11. The left-sided neural foramina is patent. Axial images at L5-S1 levels with moderate facet arthropathy bilaterally. There is posterior spur dis c complex mildly effaces the anterior thecal sac. There is moderate left-sided inferior neural forami nal narrowing. Right-sided neural foramina is patent Paraspinal muscle bulk is maintained. IMPRESSION: Scoliosis with multilevel degenerative changes greatest L3-L4 level and L4-L5 levels as d etailed above. Encroachment on right L4 nerve suspected.
== END | disposition home or self-care (01) ==
LOC: RADMRIMAIN 09:42
PROVIDERS: ATTEND Family Medicine
DX: M47.816 Spondylosis without myelopathy or radiculopathy, lumbar region (principal); M41.86 Other forms of scoliosis, lumbar region
CPT/HCPCS: 72148

== ENCOUNTER 2021-03-12 13:56 | Emergency (ER) | payer MEDICARE, OTHER ==
[2021-03-12 14:02] VITALS: BP 145/77; PULSE 113; RESP 20; TEMP 98.6
[2021-03-12] MEDS ORDERED: KETOROLAC 15 MG/ML 1 ML VIAL IM STA (14:23)
--- NOTE | 2021-03-12 14:30 | ED ---
Back Pain HPI - General Chief Complaint: Back Pain/Injury Stated Complaint: Back Pain Time Seen by Provider: 03/12/21 14:07 Source: patient, RN notes reviewed Limitations: no limitations - History of Present Illness Initial Comments: Patient is a 56-year-old male that presents to the emergency department complaining of low back pain. He notes that he recently got a cortisone i njection his low back approximately 9 days ago. He notes that the pain is still constant with no relief. Patient states he wants symptom medic control of his pain. He denied any other issues or complaints. He denied any injury or trauma to his low back. Patient denied any chest pain shortness breath headache nausea vomiting diarrhea constipation fever fatigue chills. - Related Data Home Medications Medication Instructions Recorded Confirmed Doxepin HCl [SINEquan] 150 mg PO HS 04/27/19 06/19/19 Gabapentin 600 mg PO TID 04/27/19 06/19/19 buprenorphine HCL [Subutex] 8 mg SL AC-TID 04/27/19 06/19/19 Albuterol Sulfate [Proair Hfa] 1 - 2 puff INHALATION RT-Q6H PRN 06/19/19 06/19/19 Baclofen [Lioresal] 10 mg PO TID 06/19/19 06/19/19 Previous Rx's Medication Instructions Recorded Ipratropium-Albuterol Nebulize 3 ml INHALATION RT-QID ampul.neb 05/28/19 [Duoneb 0.5 mg-3 mg/3 ml Soln] Melatonin 5 mg PO HS #30 tablet 05/28/19 Nicotine 21Mg/24Hr Patch [Habitrol] 1 patch TRANSDERM DAILY #14 patch 05/28/19 amLODIPine [Norvasc] 5 mg PO DAILY #30 tab 05/28/19 Acetaminophen Tab [Tylenol Tab] 500 mg PO Q6H PRN #30 tablet 06/20/19 Sulfamethox-Tmp 800-160Mg [Bactrim 1 tab PO Q12HR #20 tab 06/20/19 DS 800-160 mg] Allergies Allergy/AdvReac Type Severity Reaction Status Date / Time Fish Containing Products Allergy Unknown Verified 03/12/21 13:57 [Fish] ibuprofen [From Motrin] AdvReac Nausea & Verified 03/12/21 13:57 Vomiting Review of Systems ROS Statement: Those systems with pertinent positive or pertinent negative responses have been documented in the HPI. ROS Other: All systems not noted in ROS Statement are negative. Past Medical History Past Medical History: COPD, Pneumonia Additional Past Medical History / Comment(s): compartment syndrome to left lower leg, GI upset, NEUROPATHY. per old hx 2010- closed head injury 2006, chest tube 05/2019 History of Any Multi-Drug Resistant Organisms: MRSA Date of last positivie culture/infection: ?2010 h&p MDRO Source:: no source provided Past Surgical History: Back Surgery Additional Past Surgical History / Comment(s): Surgery on Left Lower Leg for Compartment Syndrome November 2010, lt leg debridment had non healing wound/wound vac 2010- per old 2010 hx mrsa listed but no date or source.sinus sx, recent chest tube insertion in May 2019, recent bronchoscopy with bronchial alveolar lavage in May 2019.. Past Anesthesia/Blood Transfusion Reactions: No Reported Reaction Past Psychological History: ADD/ADHD, Anxiety, Bipolar, Depression, Schizophrenia Smoking Status: Current every day smoker Past Alcohol Use History: None Reported Past Drug Use History: None Reported - Past Family History Father Family Medical History: Myocardial Infarction ([place]) Additional Family Medical History / Comment(s): ETOH abuse, Cardiac Arrest at the age of 60 withdrawing from ETOH Mother Family Medical History: Congestive Heart Failure (CHF), Hypertension Additional Family Medical History / Comment(s): Breast Cancer that spread to the lymph nodes General Exam Limitations: no limitations General appearance: alert, in no apparent distress, appears intoxicated Head exam: Present: atraumatic, normocephalic, normal inspection Eye exam: Present: normal appearance, PERRL, EOMI. Absent: scleral icterus, conjunctival injection, periorbital swelling Neck exam: Present: normal inspection Respiratory exam: Present: normal lung sounds bilaterally. Absent: respiratory distress, wheezes, rales, rhonchi, stridor Cardiovascular Exam: Present: regular rate, normal rhythm, normal heart sounds. Absent: systolic murmur, diastolic murmur, rubs, gallop, clicks GI/Abdominal exam: Present: soft, normal bowel sounds. Absent: distended, tenderness, guarding, rebound, rigid Extremities exam: Present: normal inspection, full ROM, normal capillary refill. Absent: tenderness, pedal edema, joint swelling, calf tenderness Back exam: Present: normal inspection Neurological exam: Present: alert, oriented X3 Psychiatric exam: Present: normal affect, normal mood Course Vital Signs 03/12/21 13:57 Temperature 98.6 F Pulse Rate 113 H Respiratory 20 Rate Blood Pressure 145/77 O2 Sat by Pulse 94 L Oximetry Medical Decision Making - Medical Decision Making 56-year-old male complaining of back pain status post lumbar injection 9 days ago. Patient exhibits seeker type tendencies, wanting pain medications for chronic back pain. Patient appears to be under the influence of a foreign substance. 15 mg of Toradol ordered. Case discussed with Dr. Freitas, patient discharge home with follow-up to pain clinic. Disposition Clinical Impression: Chronic low back pain Disposition: HOME SELF-CARE Condition: Stable Instructions (If sedation given, give patient instructions): Acute Low Back Pain (ED) Additional Instructions: Please return to the Emergency Department if symptoms worsen or any other concerns. Follow-up with pain clinic in the next 1-2 days. Follow-up primary care in the next 1-2 days. Take at home pain medications as prescribed. Is patient prescribed a controlled substance at d/c from ED?: No Referrals: Basil Srinivasan MD [Primary Care Provider] - 1-2 days Time of Disposition: 14:30
== END 2021-03-12 14:42 | disposition home or self-care (01) ==
LOC: EC 13:56
DX: G89.29 Other chronic pain (principal); M54.5 Low back pain; J44.9 Chronic obstructive pulmonary disease, unspecified; G62.9 Polyneuropathy, unspecified; F31.9 Bipolar disorder, unspecified; F41.9 Anxiety disorder, unspecified; F90.9 Attention-deficit hyperactivity disorder, unspecified type; F17.200 Nicotine dependence, unspecified, uncomplicated; Z79.51 Long term (current) use of inhaled steroids; Z88.6 Allergy status to analgesic agent
CPT/HCPCS: 99283; 96372; J1885

== ENCOUNTER → 2021-06-02 | Outpatient (CLI) | payer MEDICARE, OTHER ==
[2021-06-02 08:39] VITALS: BP 126/88; PULSE 88; RESP 18
--- NOTE | 2021-06-02 09:09 | P.CONS ---
History of Present Illness - Reason for Consult Consult date: 06/02/21 - Chief Complaint Low back pain - History of Present Illness This is a 56-year-old gentleman with history of lower back pain with radiation to the lower extremities. The patient had transforaminal epidural steroid injection at Dr. Easton's office which helped his legs pain however he still complains of mostly axial lower back pain on the right side of his lower back at this point. The pain gets worse with physical activities. The patient takes buprenorphine 8 mg 3 times a day for his pain. He smokes one pack of cigarettes a day. He used to be on Xarelto for family history of cardiac disease however he stopped using it and he switched to aspirin. History of diabetes. The patient failed to respond to physical therapy. Review of Systems Cardiovascular: Denies chest pain, Denies shortness of breath Respiratory: Denies cough Musculoskeletal: Reports as per HPI Neurological: Reports as per HPI Past Medical History Past Medical History: COPD, Pneumonia Additional Past Medical History / Comment(s): compartment syndrome to left lower leg, GI upset, NEUROPATHY. per old hx 2010- closed head injury 2006, chest tube 05/2019 History of Any Multi-Drug Resistant Organisms: MRSA Year Discovered:: ?2010 h&p MDRO Source:: no source provided Past Surgical History: Back Surgery Additional Past Surgical History / Comment(s): Surgery on Left Lower Leg for Compartment Syndrome November 2010, lt leg debridment had non healing wound/wound vac 2010- per old 2010 hx mrsa listed but no date or source.sinus sx, recent chest tube insertion in May 2019, recent bronchoscopy with bronchial alveolar lavage in May 2019.. Past Anesthesia/Blood Transfusion Reactions: No Reported Reaction Past Psychological History: ADD/ADHD, Anxiety, Bipolar, Depression, Schizophrenia Additional Psychological History / Comment(s): poor historian. Smoking Status: Current every day smoker Past Alcohol Use History: None Reported Additional Past Alcohol Use History / Comment(s): 2 ppd x 32 years Past Drug Use History: None Reported Additional Drug Use History / Comment(s): Percocet and Xanax also per old 2010 h&p used heroin, ecstacy, amphetamines, benzodiazepines - Past Family History Father Family Medical History: Myocardial Infarction ([place]) Additional Family Medical History / Comment(s): ETOH abuse, Cardiac Arrest at the age of 60 withdrawing from ETOH Mother Family Medical History: Congestive Heart Failure (CHF), Hypertension Additional Family Medical History / Comment(s): Breast Cancer that spread to the lymph nodes Medications and Allergies Home Medications Medication Instructions Recorded Confirmed Type Gabapentin 600 mg PO TID 04/27/19 06/02/21 History buprenorphine HCL [Subutex] 8 mg SL AC-TID 04/27/19 06/02/21 History Acetaminophen Tab [Tylenol Tab] 500 mg PO Q6H PRN #30 tablet 06/20/19 06/02/21 Rx clonazePAM [KlonoPIN] 1 mg PO BID 06/02/21 06/02/21 History Allergies Allergy/AdvReac Type Severity Reaction Status Date / Time Fish Containing Products Allergy Unknown Verified 03/12/21 13:57 [Fish] ibuprofen [From Motrin] AdvReac Nausea & Verified 03/12/21 13:57 Vomiting Physical Exam Vitals: Vital Signs Pulse Resp BP Pulse Ox 06/02/21 08:34 88 18 126/88 96 Intake and Output 06/01/21 06/02/21 06/02/21 22:59 06:59 14:59 Other: Weight 65.771 kg - Constitutional General appearance: thin - EENT Eyes: PERRLA - Neurologic Neuro exam of the lower extremities is within normal limits however he has absent ankle reflex bilaterally Straight leg raising test negative bilaterally Positive tenderness around the right sacroiliac joint Positive Al's test on the right side Negative facet loading test at this point Neurologic: CNII-XII intact - Psychiatric Psychiatric: A&O x's 3, appropriate affect, intact judgment & insight Assessment and Plan Plan: This is a 56-year-old gentleman with history of lower back and legs pain however with more intense axial lower back pain on the right side. The patient had transforaminal epidural steroid injection and Dr. Guevara office which helped his legs pain but did not help his back pain. The patient's physical exam is more consistent with right sacroiliitis than with facet arthropathy at this point. He might benefit from a right sacroiliac joint steroid injection under fluoroscopic guidance. The procedure was explained to the patient and his patient were answered. The patient would like to have this procedure done with IV sedation. Right now the patient takes aspirin only when he denies taking any Xarelto. I thank you for the referral
== END ==
LOC: PNWHC3 08:24
PROVIDERS: ATTEND Anesthesiology
DX: M46.1 Sacroiliitis, not elsewhere classified (principal); J44.9 Chronic obstructive pulmonary disease, unspecified; F90.9 Attention-deficit hyperactivity disorder, unspecified type; F41.9 Anxiety disorder, unspecified; F31.9 Bipolar disorder, unspecified; F20.9 Schizophrenia, unspecified; F17.210 Nicotine dependence, cigarettes, uncomplicated; E11.40 Type 2 diabetes mellitus with diabetic neuropathy, unspecified; Z88.6 Allergy status to analgesic agent; Z91.013 Allergy to seafood
CPT/HCPCS: 99211

== ENCOUNTER 2021-07-19 08:18 | Day surgery (SDC) | payer MEDICARE, OTHER ==
[2021-07-12 15:21] VITALS: BMI 22.1
[~2021-07-19 08:18] MED LIST changes: +LACTATED RINGERS 1,000 ML IV SCH; -MIDAZOLAM 1 MG/ML 5 ML VIAL ONE; -PROPOFOL 10 MG/ML 20 ML VIAL IV ONE; -ROCURONIUM BROMIDE 10 MG/ML 10 ML VIAL IV ONE; -SUCCINYLCHOLINE CHLORIDE VIAL 200 MG/10 ML VIAL IV ONE
[2021-07-19 08:39] VITALS: RESP 16; TEMP 97
[2021-07-19] MEDS ORDERED: ROPIVACAINE 5MG/ML 20ML VIAL ONE (08:58)
[2021-07-19] MEDS ORDERED: MIDAZOLAM 2 MG/2 ML VIAL ONE (08:58)
[2021-07-19] MEDS ORDERED: fentaNYL (PF) 50 MCG/ML 2 ML AMP ONE (08:58)
[2021-07-19] MEDS ORDERED: methylPREDNISolone ACETATE 40 MG/ML 1 ML VIAL ONE (08:58)
--- NOTE | 2021-07-19 09:14 | P.PCN ---
Date of Procedure: 07/19/21 Procedure(s) Performed: Procedure= Right sacroiliac joints steroid injection under fluoroscopy guidance (fluoroscopy image stored on file in the radiology Department ) Preoperative diagnosis= 1- Right sacroiliitis 2-lumbar spondylosis with facet arthropathy Postoperative diagnosis=Same as preop Diagnosis . Complication = none Condition= stable Anesthesia= moderate sedation with intravenous Versed 1 mg , and fentanyl 50 micrograms . Indication for the procedure= patient complaining of low back pain , examination was positive for severe tenderness over the sacroiliac joints bilaterally and patient diagnosed with sacroiliitis, for this reason he was good candidate for sacroiliac joint steroid injection. Description of the procedure= procedure risk and benefits discussed with the patient, including but not limited, risk of infection and bleeding, and ALLERGIC reaction to the medication and not complete pain relief and patient agreed with the preceding patient taken to the operating room, placed in prone position or standard monitors applied to the patient then after induction of anesthesia back prepped with chlorhexidine 3 times , Then under strict sterile technique, first I did the right sacroiliac joint the which was identified under fluoroscopy guidance been local infiltration of the skin and subcu interstitial with lidocaine 1% then 22-gauge Quincke Needle advanced slowly under fluoroscopy and placed in the right sacroiliac joint needle placement confirmed with AP and oblique and lateral view and after appropriate needle placement confirmed and after negative aspiration, or heme , then Ropivacaine 0.5% 4 mL, and 60 mg of Depo-Medrol mixed together and injected in the right sacroiliac joint after negative aspiration patient tolerated the procedure well without any complication.
[2021-07-19] MEDS ORDERED: IV FLUID CONTINUATION 900 ML IV ONE (09:16)
[2021-07-19 09:42] VITALS: PULSE 66
[2021-07-19 10:03] VITALS: BP 104/64
--- NOTE | 2021-07-19 10:42 | FL ---
Fluoroscopy INDICATION: Pain FINDINGS: Fluoroscopy time: 3 seconds. Images obtained: 1. IMPRESSIONS: 1. Documentation of fluoroscopy.
== END 2021-07-19 10:16 | disposition home or self-care (01) ==
LOC: ORPAIN 08:18
PROVIDERS: ATTEND Specialist
DX: M47.816 Spondylosis without myelopathy or radiculopathy, lumbar region (principal)
CPT/HCPCS: G0260; J2250; J1030; J3010; J2795; 27096

== ENCOUNTER → 2021-08-11 | Outpatient (CLI) | payer MEDICARE, OTHER ==
[2021-08-11 10:54] VITALS: BP 129/90; PULSE 92; RESP 18; TEMP 98.2
--- NOTE | 2021-08-11 11:06 | P.PN ---
Subjective Progress Note Date: 08/11/21 This is a follow-up visit for this 56 years old male with a chronic history of severe low back pain,he is diagnosed with right sacroiliitis, lumbar spondylosis with lumbar facet arthropathy and lumbar degenerative disc disease, recently we have done right-sided sacroiliac joint steroid injection patient reports he had good pain relief, and in the right buttock area improved significantly currently he is complaining of low back pain is bilateral, and increases with any activity especially when he tried to stand up straight or when he tried to walk, as any motor or sensory deficits he denies any fever or numbness but he denies any change in the bowel movement or urination, and still the pain is between 4/10 with complete wrist increase to 8/10 with any activity Objective - Vital Signs Vital signs: Vital Signs Temp 98.2 F 08/11/21 10:33 Pulse 92 08/11/21 10:33 Resp 18 08/11/21 10:33 BP 129/90 08/11/21 10:33 Pulse Ox 98 08/11/21 10:33 Intake & Output 08/10/21 08/11/21 08/11/21 18:59 06:59 18:59 Weight 63.503 kg - Exam Physical Examinations : -Constitutiona : Cooperative , not in acute distress . -HEENT : nech : supple , no Lymphadenopathy , normal thyroid size . : eyes : no ptosis , no icterus, no photophobia . - neurologic : Cranial nerve II to XII intact , no focal neurological deffecit . -psychatric : alert , oriented X 3 , appropriate affect , intact judgment and insight . -Lymphatic : no Lymphadenopathy . - musculoskeltal : Lumber spine moter stegnth lower extremities ,thigh and legs 5/5 Right side , 5/5 Left side deep tendon reflexes : normal Knee Jerk , normal ankle Jerk lumber facet Loading Test =positive Right , positive Left Range of motion of the lumbar spine Flexion 30 degrees, extension 10 degrees strait leg raising test = positive at 60 degree Fabere test= positive Right , and positive LT . tenderness over the Sacroiliac joint on the Right . Gaenslen test= positive right . Seated flexion test= positive right . Distraction test= positive right Beth of the lumbar spine multilevel lumbar degenerative disc disease and multilevel lumbar facet arthropathy Assessment and Plan Plan: Assessment and plan=1-right sacroiliitis. 2-lumbar spondylosis with lumbar facet arthropathy without myelopathy. 3-lumbar degenerative disc disease. Had good pain relief after right sacroiliac joint steroid injection. Patient currently complaining of low back pain mostly secondary to facetogenic component, and Will be good candidate to have Electrode diagnostic medial branch block at L4 5 and L5-S1 , and possible RFA - PQRS measures = - Patient's medications are documented in the chart. -Tobacco use is positive/negative and counseling.Given. -Patient's has not received pneumococcal vaccine. -Advanced care planning discussed, patient not eligible. -Opiate contract not signed. -Pain positive and follow-up visit/procedure is scheduled. -Patient's blood pressure measured [129/90 ] , and documented in the record ,and patient will follow up with the primary care. -Patient's weight was measured and body mass index [ 29 ] within the normal limits and counseling was done. and patient instructed to follow-up with the primary care physician. -Patient was not identified as an unhealthy alcohol user Time with Patient: Less than 30
== END | disposition home or self-care (01) ==
LOC: PNWHC3 10:21
PROVIDERS: ATTEND Specialist
DX: M47.896 Other spondylosis, lumbar region (principal); M51.36 Other intervertebral disc degeneration, lumbar region; M46.1 Sacroiliitis, not elsewhere classified
CPT/HCPCS: 99211

== ENCOUNTER 2021-09-22 00:12 | Inpatient (IN) | payer MEDICARE, OTHER ==
[2021-09-22] MEDS ORDERED: LORazepam 2 MG/ML INJ IV STA ×2 (00:31→01:32)
[2021-09-22] MEDS ORDERED: SODIUM CHLORIDE 0.9% 1,000 ML IV ONE (00:31)
[2021-09-22 01:04] LABS: Basophils % (A) 0 %; Eosinophils # (A) 0.1 k/uL (0-0.7); Eosinophils % (A) 0 %; HCT 38.2 % (39.0-53.0); HGB 12.9 gm/dL (13.0-17.5); Lymphocytes # (A) 1.7 k/uL (1.0-4.8); Lymphocytes % (A) 9 %; MCH 33.4 pg (25.0-35.0); MCHC 33.8 g/dL (31.0-37.0); MCV 98.6 fL (80.0-100.0); Mean Platelet Volume 7.1; Monocytes # (A) 0.5 k/uL (0-1.0); Monocytes % (A) 3 %; Neutrophils % (A) 87 %; Platelet Count 397 k/uL (150-450); RBC 3.88 m/uL (4.30-5.90); RDW 13.5 % (11.5-15.5); WBC 18.4 k/uL (3.8-10.6)
[2021-09-22 01:24] LABS: ALT 39 U/L (4-49); African American GFR (CKD) >90 (>60 ml/min/1.73 sqM); Anion Gap 20 mmol/L; Blood Urea Nitrogen 11 mg/dL (9-20); Calcium 8.1 mg/dL (8.4-10.2); Carbon Dioxide 15 mmol/L (22-30); Chloride 92 mmol/L (98-107); Glucose 129 mg/dL (74-99); Non-African American GFR(CKD) >90 (>60 ml/min/1.73 sqM); Sodium 127 mmol/L (137-145)
[2021-09-22] MEDS ORDERED: ONDANSETRON 4 MG/2 ML VIAL IVP STA ×2 (01:32→05:01)
[2021-09-22 01:44] LABS: Alcohol 187 mg/dL
[2021-09-22 01:45] LABS: AST 85 U/L (17-59); Alkaline Phosphatase 83 U/L (38-126); Magnesium 1.4 mg/dL (1.6-2.3); Potassium 4.8 mmol/L (3.5-5.1); Total Bilirubin 0.9 mg/dL (0.2-1.3); Total Protein 7.3 g/dL (6.3-8.2)
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
[2021-09-22] MEDS: LORazepam 2 MG/ML INJ IV PRN ×11 (03:18→19:52)
[2021-09-22] MEDS: MAGNESIUM SULFATE-D5W PMX 1 GM in DEXTROSE/WATER 1 100ML.BAG IVPB SCH ×2 (03:35→04:59)
[2021-09-22] MEDS ORDERED: MAG HYDROX/AL HYDROX/SIMETH 30 ML CUP PO PRN (03:48)
[2021-09-22] MEDS ORDERED: NALOXONE 0.4 MG/ML 1 ML VIAL IV PRN (03:48)
[2021-09-22] MEDS ORDERED: ACETAMINOPHEN TAB 325 MG TAB PO PRN (03:48)
[2021-09-22] MEDS: SODIUM CHLORIDE 0.9% 1,000 ML IV SCH ×2 (03:58→11:47)
[2021-09-22] MEDS ORDERED: ONDANSETRON 4 MG/2 ML VIAL IVP PRN (05:44)
[2021-09-22] MEDS ORDERED: METOCLOPRAMIDE 5 MG/ML 2 ML VIAL IVP PRN (05:44)
[2021-09-22 07:48] LABS: HCT 31.5 % (39.0-53.0); HGB 10.8 gm/dL (13.0-17.5); MCH 33.5 pg (25.0-35.0); MCHC 34.4 g/dL (31.0-37.0); MCV 97.4 fL (80.0-100.0); Mean Platelet Volume 7.5; Platelet Count 294 k/uL (150-450); RBC 3.23 m/uL (4.30-5.90); RDW 12.8 % (11.5-15.5); WBC 21.9 k/uL (3.8-10.6)
[2021-09-22] MEDS ORDERED: HEPARIN SODIUM,PORCINE/PF 5,000 UNIT/0.5 ML SYRINGE SQ SCH (08:00)
[2021-09-22 08:04] LABS: ALT 36 U/L (4-49); AST 64 U/L (17-59); African American GFR (CKD) >90 (>60 ml/min/1.73 sqM); Albumin 3.1 g/dL (3.5-5.0); Alkaline Phosphatase 77 U/L (38-126); Anion Gap 9 mmol/L; Blood Urea Nitrogen 8 mg/dL (9-20); Calcium 7.6 mg/dL (8.4-10.2); Carbon Dioxide 25 mmol/L (22-30); Chloride 94 mmol/L (98-107); Glucose 87 mg/dL (74-99); Non-African American GFR(CKD) >90 (>60 ml/min/1.73 sqM); Potassium 3.4 mmol/L (3.5-5.1); Sodium 128 mmol/L (137-145); Total Bilirubin 0.9 mg/dL (0.2-1.3); Total Protein 5.9 g/dL (6.3-8.2)
[2021-09-22] MEDS ORDERED: PROCHLORPERAZINE INJ 10 MG/2 ML VIAL IVP PRN (08:39)
[2021-09-22] MEDS: diazePAM 5 MG TAB PO SCH ×3 (09:16→21:38)
[2021-09-22] MEDS: FAMOTIDINE 20 MG TAB PO SCH ×2 (09:16→19:53)
[2021-09-22] MEDS: ACYCLOVIR 800 MG TAB PO SCH ×3 (09:16→22:39)
--- NOTE | 2021-09-22 09:17 | P.PN ---
Subjective Progress Note Date: 09/22/21 Hospital course: Patient is a 56-year-old male with a past medical history of chronic pain on Buprenorphine, alcohol abuse, anxiety, DVTs, neuropathy, and nicotine dependence. He presented to the hospital on 09/22/21 with a chief complaint of "alcohol poisoning" stating that he ran out of his Klonopin so he has been drinking more alcohol to self medicate and is worried he drank too much reporting drinking more than a fifth of vodka daily, he is not consistent with that information he provides regarding the duration of alcohol use. He was seen and fully evaluated and found to have an alcohol level of 187, magnesium of 1.4, potassium 3.4, sodium 127 Physical exam: Patient seen and fully evaluated at the bedside this morning. He has received 10 mg of Ativan over the past 7 hours, his CIWA is reported to be 23. Pt placed on scheduled Valium in addition to symptom triggered benzos to assist with withdrawal process. These will be held for any signs of sedation. Patient had noted tremors and reported experiencing nausea this morning. He denied any dizziness, lightheadedness, chest pain, palpitations, or shortness of breath. Patient denied any visual, auditory, or tactile hallucinations. Vital signs reviewed and stable. General: Nontoxic, no distress and appears stated age. Thin build. Derm: Skin warm and dry, normal coloration for ethnicity. Head: Atraumatic, normocephalic and symmetric. Eyes: EOMs intact, no lid lag, and anicteric sclera Mouth: no lip lesions, mucus membranes moist Cardiovascular: Tachycardic rate and regular rhythm with normal S1S2, no murmur, positive posterior tibial pulses bilaterally, and cap refill < 2 seconds. Lungs: Respirations even, regular, and unlabored on room air. Lungs CTA bilaterally, no rhonchi, no rales, no wheezing, and no accessory muscle usage. Abdominal: soft, nontender to palpation, no guarding, no appreciable organomegaly Ext: ROM intact. No gross muscle atrophy, no edema, no contractures Neuro: Speech clear, face symmetrical and CN II-XII grossly intact with no noted focal neuro deficits Psych: Alert and oriented to person, place, time, and situation. Appropriate and pleasant affect. Assessment and Plan of Care: EtOH abuse with withdrawal -CIWA Protocol with symptom triggered medication management with benzodiazepines. -Scheduled Valium 10 mg 3 times a day, we will taper as patient goes through withdrawal and has decreased needs for symptom triggered benzodiazepines -Continuous IV hydration. -Thiamine 100 mg twice a day -Multivitamin daily -Folate 1 mg daily -Seizure, fall, aspiration, and elopement precautions in place. -Urine drug screen -Continued close monitoring of electrolytes and replace as needed. -Telemetry monitoring. Dehydration with electrolyte imbalances Hyponatremia -Secondary to dehydration resulting from excessive alcohol intake and decreased oral intake of nutrients. -Encourage oral intake and Continue hydration with IV fluids Hypomagnesemia -Replaced, we will continue to monitor with repeat a.m. labs. Hypokalemia -Replaced, we will continue to monitor with repeat a.m. labs. Chronic pain -Continue daily home medication regimen with Buprenorphine to avoid further withdrawal. History of DVTs -Continue oral anticoagulant with Xarelto. Nicotine dependence -Educated and encouraged patient on the benefits of smoking cessation and the r isks of continued use. -Nicotine patch. CODE STATUS: Full code DVT prophylaxis: Xarelto Discussed with: Patient and RN Anticipated discharge date: Clinical course to determine Anticipated discharge place: Home A total of 45 minutes was spent on the care of this complex patient more than 50% of the time was spent in counseling and care coordination. Objective - Vital Signs Vital signs: Vital Signs Temp 99.1 F 09/22/21 08:00 Pulse 104 H 09/22/21 08:00 Resp 14 09/22/21 08:00 BP 131/70 09/22/21 08:00 Pulse Ox 94 L 09/22/21 08:00 Intake & Output 09/21/21 09/22/21 09/22/21 18:59 06:59 18:59 Output Total 50 Balance -50 Weight 68.039 kg Output: Emesis 50 - Labs CBC & Chem 7: 09/22/21 06:46 09/22/21 06:46 Labs: Abnormal Lab Results - Last 24 Hours (Table) 09/22/21 09/22/21 09/22/21 Range/Units 00:50 00:55 06:46 WBC 18.4 H 21.9 H (3.8-10.6) k/uL RBC 3.88 L 3.23 L (4.30-5.90) m/uL Hgb 12.9 L 10.8 L (13.0-17.5) gm/dL Hct 38.2 L 31.5 L (39.0-53.0) % Neutrophils # 16.0 H (1.3-7.7) k/uL Sodium 127 L (137-145) mmol/L Potassium (3.5-5.1) mmol/L Chloride 92 L (98-107) mmol/L Carbon Dioxide 15 L (22-30) mmol/L BUN (9-20) mg/dL Creatinine 0.38 L (0.66-1.25) mg/dL Glucose 129 H (74-99) mg/dL Calcium 8.1 L (8.4-10.2) mg/dL Magnesium 1.4 L (1.6-2.3) mg/dL AST 85 H (17-59) U/L Total Protein (6.3-8.2) g/dL Albumin (3.5-5.0) g/dL 09/22/21 Range/Units 06:46 WBC (3.8-10.6) k/uL RBC (4.30-5.90) m/uL Hgb (13.0-17.5) gm/dL Hct (39.0-53.0) % Neutrophils # (1.3-7.7) k/uL Sodium 128 L (137-145) mmol/L Potassium 3.4 L (3.5-5.1) mmol/L Chloride 94 L (98-107) mmol/L Carbon Dioxide (22-30) mmol/L BUN 8 L (9-20) mg/dL Creatinine 0.36 L (0.66-1.25) mg/dL Glucose (74-99) mg/dL Calcium 7.6 L (8.4-10.2) mg/dL Magnesium (1.6-2.3) mg/dL AST 64 H (17-59) U/L Total Protein 5.9 L (6.3-8.2) g/dL Albumin 3.1 L (3.5-5.0) g/dL
[2021-09-22] MEDS ORDERED: GABAPENTIN 300 MG CAP PO SCH (12:30)
[2021-09-22] MEDS: BACLOFEN 10 MG TAB PO SCH ×3 (12:59→19:53)
[2021-09-22] MEDS: NON FORMULARY DRUG (Buprenorphine Hcl [Subutex] 8 MG Tab.Subl) SUBLINGUAL SCH ×2 (13:00→17:24)
--- NOTE | 2021-09-22 14:18 | CT ---
EXAMINATION TYPE: CT brain wo con DATE OF EXAM: 09/22/2021 HISTORY: fall injury with headache on blood thinners CT DLP: 1092.4 mGycm. Automated Exposure Control for Dose Reduction was Utilized. TECHNIQUE: CT scan of the head is performed without contrast. COMPARISON: CT brain May 07, 2019. FINDINGS: There is no acute intracranial hemorrhage or midline shift identified. There is mild-to-m oderate diffuse ventricular and sulcal prominence consistent with diffuse age-related cerebral atroph y. There is mild low-attenuation in the periventricular white matter consistent with chronic small v essel ischemic change. The calvarium is intact. Persistent mucosal thickening and increased opacity b ilateral ethmoid sinuses. Moderate to severe peripheral mucosal thickening left maxillary sinus now present. Inferior opacification left frontal sinus now present. Globes are intact bilaterally. IMPRESSION: No acute intracranial hemorrhage or midline shift. There is mild to moderate diffuse ag e-related cerebral atrophy and mild chronic small vessel ischemic change redemonstrated. No signific ant change from prior. Worsening paranasal sinus disease noted. Correlate clinically.
[2021-09-22] MEDS: FOLIC ACID 1 MG TAB PO SCH (14:26)
[2021-09-22] MEDS: MULTIVITAMINS, THERA 1 EACH TAB PO SCH (14:26)
[2021-09-22] MEDS: THIAMINE 100 MG TAB PO SCH (14:26)
[2021-09-22] MEDS: RIVAROXABAN 2.5 MG TABLET PO SCH (17:23)
[2021-09-22] MEDS: NICOTINE 21MG/24HR PATCH TRANSDERM SCH (17:23)
[2021-09-22 19:59] LABS: Urine Alcohol Negative (Negative); Urine Barbiturate Negative (Negative); Urine Cocaine Negative (Negative); Urine Methadone Negative (Negative); Urine Opiates Negative (Negative); Urine Phencyclidine Negative (Negative)
[2021-09-23] MEDS: LORazepam 2 MG/ML INJ IV PRN ×8 (01:35→22:14)
[2021-09-23] MEDS: SODIUM CHLORIDE 0.9% 1,000 ML IV SCH ×4 (04:48→18:13)
[2021-09-23] MEDS: RIVAROXABAN 2.5 MG TABLET PO SCH ×2 (07:54→17:20)
[2021-09-23] MEDS: FAMOTIDINE 20 MG TAB PO SCH ×2 (07:54→20:25)
[2021-09-23] MEDS: diazePAM 5 MG TAB PO SCH ×3 (07:54→20:25)
[2021-09-23] MEDS: BACLOFEN 10 MG TAB PO SCH ×4 (07:54→20:23)
[2021-09-23] MEDS: MULTIVITAMINS, THERA 1 EACH TAB PO SCH (07:54)
[2021-09-23] MEDS: NICOTINE 21MG/24HR PATCH TRANSDERM SCH (07:55)
[2021-09-23] MEDS: FERROUS SULFATE 325 MG TAB PO SCH (07:55)
[2021-09-23] MEDS: THIAMINE 100 MG TAB PO SCH (07:55)
[2021-09-23] MEDS: FOLIC ACID 1 MG TAB PO SCH (07:55)
[2021-09-23] MEDS: NON FORMULARY DRUG (Buprenorphine Hcl [Subutex] 8 MG Tab.Subl) SUBLINGUAL SCH ×3 (08:14→17:19)
[2021-09-23] MEDS ORDERED: NICOTINE 21MG/24HR PATCH TRANSDERM SCH (09:00)
[2021-09-23 09:23] LABS: HCT 35.3 % (39.6-50.0); HGB 11.6 g/dL (13.0-17.0); MCH 32.3 pg (27.0-32.0); MCHC 32.9 g/dL (32.0-37.0); MCV 98.3 fL (80.0-97.0); Mean Platelet Volume 10.4 fL (9.5-12.2); NRBC Per 100 WBC 0 /100 WBCS (0.0-0.0); Platelet Count 234 X 10*3/uL (140-440); RBC 3.59 X 10*6/uL (4.40-5.60)
[2021-09-23 09:36] LABS: African American GFR (CKD) 146.7 (60.0-200.0); Albumin 3.3 g/dL (3.8-4.9); Albumin/Globulin Ratio 1.29 (1.60-3.17); Anion Gap 12.3 mmol/L (10.00-18.00); BUN/Creat Ratio 12.86 Ratio (12.00-20.00); Calcium 7.9 mg/dL (8.7-10.3); Carbon Dioxide 23.6 mmol/L (20.0-27.5); Globulin 2.6 g/dL (1.6-3.3); Magnesium 1.9 mg/dL (1.5-2.4); Non-African American GFR(CKD) 126.6 (60.0-200.0); Potassium 3.5 mmol/L (3.5-5.5); Total Bilirubin 0.6 mg/dL (0.30-1.20); Total Protein 5.9 g/dL (6.2-8.2)
--- NOTE | 2021-09-23 14:03 | P.PN ---
Subjective Progress Note Date: 09/23/21 Hospital course: Patient is a 56-year-old male with a past medical history of chronic pain on Buprenorphine, alcohol abuse, anxiety, DVTs, neuropathy, and nicotine dependence. He presented to the hospital on 09/22/21 with a chief complaint of "alcohol poisoning" stating that he ran out of his Klonopin so he has been drinking more alcohol to self medicate and is worried he drank too much reporting drinking more than a fifth of vodka daily, he is not consistent with that information he provides regarding the duration of alcohol use. He was seen and fully evaluated and found to have an alcohol level of 187, magnesium of 1.4, potassium 3.4, sodium 127. During detox process, pt did band head on table while rocking back and forth. A CT head was completed secondary to pt being on anticoagulants and unreliable neuro assessment during withdraw process. CT brain was negative for acute intercranial abnormalities. Physical exam: Patient seen and fully evaluated at the bedside this morning. He has received 9 mg of Ativan over the past 24 hours per CIWA scale in addition to scheduled valium. He appeared to be doing better this morning. He had no noted tremors or diaphoresis and continued to deny any visual/tactile/auditory hallucinations. VSS, tachycardia resolved. Hypnatremia, hypokalemia and hypomagnesemia resolved. Discussed with patient the possibility of outpatient rehab upon discharge and pt states he does not want to go. He denies any further complaints at this time including dizziness, lightheadedness, chest pain, palpitations, SOB, abdominal pain, N/V/D, or any numbness, tingling, or weakness in his extremities. Vital signs reviewed and stable. General: Nontoxic, no distress and appears stated age. Thin build. Derm: Skin warm and dry, normal coloration for ethnicity. Head: Atraumatic, normocephalic and symmetric. Eyes: EOMs intact, no lid lag, and anicteric sclera Mouth: no lip lesions, mucus membranes moist Cardiovascular: Tachycardic rate and regular rhythm with normal S1S2, no murmur, positive posterior tibial pulses bilaterally, and cap refill < 2 seconds. Lungs: Respirations even, regular, and unlabored on room air. Lungs CTA bilaterally, no rhonchi, no rales, no wheezing, and no accessory muscle usage. Abdominal: soft, nontender to palpation, no guarding, no appreciable organomegaly Ext: ROM intact. No gross muscle atrophy, no edema, no contractures Neuro: Speech clear, face symmetrical and CN II-XII grossly intact with no noted focal neuro deficits Psych: Alert and oriented to person, place, time, and situation. Appropriate and pleasant affect. Assessment and Plan of Care: EtOH abuse with withdrawal -[facility] Protocol with symptom triggered medication management with benzodiazepines. -Scheduled Valium 10 mg 3 times a day, we will taper as patient goes through withdrawal and has decreased needs for symptom triggered benzodiazepines -Continuous IV hydration. -Thiamine 100 mg twice a day -Multivitamin daily -Folate 1 mg daily -Seizure, fall, aspiration, and elopement precautions in place. -Urine drug screen negative. -Continued close monitoring of electrolytes and replace as needed. -Telemetry monitoring. Dehydration with electrolyte imbalances, resolved after IV fluid hydration and electrolyte replacement. Hyponatremia -Secondary to dehydration resulting from excessive alcohol intake and decreased oral intake of nutrients. -Encourage oral intake and Continue hydration with IV fluids Hypomagnesemia -Replaced, we will continue to monitor with repeat a.m. labs. Hypokalemia -Replaced, we will continue to monitor with repeat a.m. labs. Chronic pain -Continue daily home medication regimen with Buprenorphine to avoid further withdrawal. History of DVTs -Continue oral anticoagulant with Xarelto. Nicotine dependence -Educated and encouraged patient on the benefits of smoking cessation and the risks of continued use. -Nicotine patch. CODE STATUS: Full code DVT prophylaxis: Xarelto Discussed with: Patient and RN Anticipated discharge date: Clinical course to determine Anticipated discharge place: Home A total of 45 minutes was spent on the care of this complex patient more than 50% of the time was spent in counseling and care coordination. Objective - Vital Signs Vital signs: Vital Signs Temp 98.8 F 09/23/21 07:16 Pulse 86 09/23/21 07:16 Resp 16 09/23/21 07:16 BP 129/85 09/23/21 07:16 Pulse Ox 96 09/23/21 07:16 Intake & Output 09/22/21 09/23/21 09/23/21 18:59 06:59 18:59 Intake Total 1020 Output Total 250 380 Balance 1020 -250 -380 Intake: Oral 1020 Output: Urine 250 380 Other: Voiding Method Urinal Urinal # Voids 3 2 1 # Bowel Movements 0 - Labs CBC & Chem 7: 09/23/21 05:51 09/23/21 05:51 Labs: Abnormal Lab Results - Last 24 Hours (Table) 09/23/21 09/23/21 Range/Units 05:51 05:51 RBC 3.59 L (4.40-5.60) X 10*6/uL Hgb 11.6 L (13.0-17.0) g/dL Hct 35.3 L (39.6-50.0) % MCV 98.3 H (80.0-97.0) fL MCH 32.3 H (27.0-32.0) pg BUN 6.0 L (9.0-27.0) mg/dL Creatinine 0.5 L (0.6-1.5) mg/dL Glucose 208 H (70-110) mg/dL Calcium 7.9 L (8.7-10.3) mg/dL AST 89 H (14-35) U/L ALT 59 H (10-49) U/L Total Protein 5.9 L (6.2-8.2) g/dL Albumin 3.3 L (3.8-4.9) g/dL Albumin/Globulin Ratio 1.29 L (1.60-3.17) g/dL
[2021-09-24] MEDS: SODIUM CHLORIDE 0.9% 1,000 ML IV SCH ×2 (01:14→11:04)
[2021-09-24] MEDS: LORazepam 2 MG/ML INJ IV PRN ×3 (01:15→09:05)
[2021-09-24 03:46] VITALS: BP 127/82; PULSE 89; RESP 15; TEMP 98.8
[2021-09-24] MEDS: RIVAROXABAN 2.5 MG TABLET PO SCH (08:49)
[2021-09-24] MEDS: FOLIC ACID 1 MG TAB PO SCH (08:49)
[2021-09-24] MEDS: FAMOTIDINE 20 MG TAB PO SCH (08:49)
[2021-09-24] MEDS: NICOTINE 21MG/24HR PATCH TRANSDERM SCH (08:49)
[2021-09-24] MEDS: MULTIVITAMINS, THERA 1 EACH TAB PO SCH (08:49)
[2021-09-24] MEDS: FERROUS SULFATE 325 MG TAB PO SCH (08:49)
[2021-09-24] MEDS: THIAMINE 100 MG TAB PO SCH (08:49)
[2021-09-24] MEDS: diazePAM 5 MG TAB PO SCH (08:49)
[2021-09-24] MEDS: BACLOFEN 10 MG TAB PO SCH (08:49)
[2021-09-24] MEDS: NON FORMULARY DRUG (Buprenorphine Hcl [Subutex] 8 MG Tab.Subl) SUBLINGUAL SCH (08:55)
--- NOTE | 2021-09-24 13:13 | P.PN ---
<Josue Cavazos - Last Filed: 09/24/21 13:04> Subjective Progress Note Date: 09/24/21 Hospital course: Patient is a 56-year-old male with a past medical history of chronic pain on B uprenorphine, alcohol abuse, anxiety, DVTs, neuropathy, and nicotine dependence. He presented to the hospital on 09/22/21 with a chief complaint of "alcohol poisoning" stating that he ran out of his Klonopin so he has been drinking more alcohol to self medicate and is worried he drank too much reporting drinking more than a fifth of vodka daily, he is not consistent with that information he provides regarding the duration of alcohol use. He was seen and fully evaluated and found to have an alcohol level of 187, magnesium of 1.4, potassium 3.4, sodium 127. During detox process, pt did band head on table while rocking back and forth. A CT head was completed secondary to pt being on anticoagulants and unreliable neuro assessment during withdraw process. CT brain was negative for acute intercranial abnormalities. Physical exam: Patient seen and fully evaluated at the bedside this morning. He has received 8 mg of Ativan over the past 24 hours per CIWA scale in addition to scheduled valium. Upon assessment this morning, patient slightly agitated and RN preparing to administer Ativan per CIWA protocol at this time, as current score is 15 and it has been nearly 5 hours since last ativan dose. Discussed with CHAVEZ Henderson the importance of following CIWA closely and administration of ativan per protocol to decrease anxiety and control agitation and other symptoms of withdrawal. Pt did not have tremors or diaphoresis but did appear significantly anxious and agitated. Vital signs reviewed and stable. General: Nontoxic, no distress and appears stated age. Thin build. Derm: Skin warm and dry, normal coloration for ethnicity. Head: Atraumatic, normocephalic and symmetric. Eyes: EOMs intact, no lid lag, and anicteric sclera Mouth: no lip lesions, mucus membranes moist Cardiovascular: Tachycardic rate and regular rhythm with normal S1S2, no murmur, positive posterior tibial pulses bilaterally, and cap refill < 2 seconds. Lungs: Respirations even, regular, and unlabored on room air. Lungs CTA bilaterally, no rhonchi, no rales, no wheezing, and no accessory muscle usage. Abdominal: soft, nontender to palpation, no guarding, no appreciable organomegaly Ext: ROM intact. No gross muscle atrophy, no edema, no contractures Neuro: Speech clear, face symmetrical and CN II-XII grossly intact with no noted focal neuro deficits Psych: Alert and oriented to person, place, time, and situation. Anxious and agitated appearance. Assessment and Plan of Care: EtOH abuse with withdrawal -[facility] Protocol with symptom triggered medication management with benzodiazepines. -Scheduled Valium 10 mg 3 times a day, we will taper as patient goes through withdrawal and has decreased needs for symptom triggered benzodiazepines -Continuous IV hydration. -Thiamine 100 mg twice a day -Multivitamin daily -Folate 1 mg daily -Seizure, fall, aspiration, and elopement precautions in place. -Urine drug screen negative. -Continued close monitoring of electrolytes and replace as needed. -Telemetry monitoring. Dehydration with electrolyte imbalances, resolved after IV fluid hydration and electrolyte replacement. Hyponatremia -Secondary to dehydration resulting from excessive alcohol intake and decreased oral intake of nutrients. -Encourage oral intake and Continue hydration with IV fluids Hypomagnesemia -Replaced, we will continue to monitor with repeat a.m. labs. Hypokalemia -Replaced, we will continue to monitor with repeat a.m. labs. Chronic pain -Continue daily home medication regimen with Buprenorphine to avoid further withdrawal. History of DVTs -Continue oral anticoagulant with Xarelto. Nicotine dependence -Educated and encouraged patient on the benefits of smoking cessation and the risks of continued use. -Nicotine patch. CODE STATUS: Full code DVT prophylaxis: Xarelto Discussed with: Patient and RN Anticipated discharge date: Clinical course to determine Anticipated discharge place: Home A total of 45 minutes was spent on the care of this complex patient more than 50% of the time was spent in counseling and care coordination. Objective - Vital Signs Vital signs: Vital Signs Temp 98.8 F 09/24/21 02:00 Pulse 89 09/24/21 02:00 Resp 15 09/24/21 02:00 BP 127/82 09/24/21 02:00 Pulse Ox 98 09/24/21 02:00 Intake & Output 09/23/21 09/24/21 09/24/21 18:59 06:59 18:59 Intake Total 1080 520 Output Total 380 Balance 700 520 Intake: IV 520 Sodium Chloride 0.9% 1, 520 000 ml @ 130 mls/hr IV . Q7H42M [facility] Rx#:[id number] Oral 1080 Output: Urine 380 Other: Voiding Method Urinal Urinal # Voids 3 3 # Bowel Movements 1 - Labs CBC & Chem 7: 09/23/21 05:51 09/23/21 05:51 Labs: Abnormal Lab Results - Last 24 Hours (Table) 09/23/21 09/23/21 Range/Units 05:51 05:51 RBC 3.59 L (4.40-5.60) X 10*6/uL Hgb 11.6 L (13.0-17.0) g/dL Hct 35.3 L (39.6-50.0) % MCV 98.3 H (80.0-97.0) fL MCH 32.3 H (27.0-32.0) pg BUN 6.0 L (9.0-27.0) mg/dL Creatinine 0.5 L (0.6-1.5) mg/dL Glucose 208 H (70-110) mg/dL Calcium 7.9 L (8.7-10.3) mg/dL AST 89 H (14-35) U/L ALT 59 H (10-49) U/L Total Protein 5.9 L (6.2-8.2) g/dL Albumin 3.3 L (3.8-4.9) g/dL Albumin/Globulin Ratio 1.29 L (1.60-3.17) g/dL <Jackie Staples - Last Filed: 09/24/21 17:08> Subjective I reviewed the documentation as provided by the BOBBY above, who is the original author of this note. I agree with the documented assessment and plan, with the following changes: None Objective - Vital Signs Vital signs: Vital Signs Temp 98.8 F 09/24/21 02:00 Pulse 89 09/24/21 02:00 Resp 15 09/24/21 02:00 BP 127/82 09/24/21 02:00 Pulse Ox 98 09/24/21 02:00 Intake & Output 09/23/21 09/24/21 09/24/21 18:59 06:59 18:59 Intake Total 1080 520 Output Total 380 Balance 700 520 Intake: IV 520 Sodium Chloride 0.9% 1, 520 000 ml @ 130 mls/hr IV . Q7H42M [facility] Rx#:[id number] Oral 1080 Output: Urine 380 Other: Voiding Method Urinal Urinal # Voids 3 3 # Bowel Movements 1 - Labs CBC & Chem 7: 09/23/21 05:51 09/23/21 05:51
--- NOTE | 2021-09-24 13:22 | P.DS ---
<Josue Cavazos - Last Filed: 09/24/21 13:13> Providers Expected date of discharge: 09/24/21 Hospital Course: THIS IS NOT A DISCHARGE SUMMARY, BUT A SUMMARY OF CARE PT LEFT HOSPITAL AGAINST MEDICAL ADVICE Hospital Diagnosis: EtOH abuse with withdrawal Dehydration with electrolyte imbalances, resolved after IV fluid hydration and electrolyte replacement. Hyponatremia Hypomagnesemia Hypokalemia Chronic pain History of DVTs Nicotine dependence Hospital Course: Patient is a 56-year-old male with a past medical history of chronic pain on Buprenorphine, alcohol abuse, anxiety, DVTs, neuropathy, and nicotine dependence. He presented to the hospital on 09/22/21 with a chief complaint of "alcohol poisoning" stating that he ran out of his Klonopin so he has been drinking more alcohol to self medicate and is worried he drank too much reporting drinking more than a fifth of vodka daily, he is not consistent with that information he provides regarding the duration of alcohol use. He was seen and fully evaluated and found to have an alcohol level of 187, magnesium of 1.4, potassium 3.4, sodium 127. During detox process, pt did bang head on table while rocking back and forth. A CT head was completed secondary to pt being on anticoagulants and unreliable neuro assessment during withdraw process. CT brain was negative for acute intercranial abnormalities. Patient underwent detox and was receiving 8-10 mg of IV Ativan per 24 hours along with scheduled Valium. On the morning of 09/24/21 patient's CIWA score was reported as 15 and it had been nearly 5 hours since last Ativan administration. RN was medicating patient per protocol at that time. Patient reportedly continued with agitation and anxiety throughout the morning. Received notification at 12:59 PM the patient left AGAINST MEDICAL ADVICE. Did not have the opportunity to reassess patient prior to his leaving facility as notification was given after patient had already left unit. Per documentation last time patient received any controlled substance was at 9:05 AM. RN reported patient left unit ambulatory with a steady gait with all of his belongings. Patient Condition at Discharge: Undetermined Plan - Discharge Summary Discharge Rx Participant: Yes New Discharge Prescriptions: No Action Gabapentin 600 mg PO AC-TID buprenorphine HCL [Subutex] 8 mg SL AC-TID clonazePAM [KlonoPIN] 1 mg PO AC-TID Baclofen [Lioresal] 20 mg PO ACHS Butalb/APAP/Caff 50-325-40Mg [Fioricet 50-325-40] 1 tab PO Q4-6H Nicotine 21Mg/24Hr Patch [Habitrol] 1 patch TRANSDERM DAILY Acyclovir [Zovirax] 800 mg PO TID Rivaroxaban [Xarelto] 2.5 mg PO AC-BID Ferrous Sulfate [Feosol] 325 mg PO DAILY Discharge Medication List Gabapentin 600 mg PO AC-TID 04/27/19 [History] buprenorphine HCL [Subutex] 8 mg SL AC-TID 04/27/19 [History] clonazePAM [KlonoPIN] 1 mg PO AC-TID 06/02/21 [History] Baclofen [Lioresal] 20 mg PO ACHS 07/12/21 [History] Butalb/APAP/Caff 50-325-40Mg [Fioricet 50-325-40] 1 tab PO Q4-6H 07/12/21 [History] Acyclovir [Zovirax] 800 mg PO TID 09/22/21 [History] Ferrous Sulfate [Feosol] 325 mg PO DAILY 09/22/21 [History] Nicotine 21Mg/24Hr Patch [Habitrol] 1 patch TRANSDERM DAILY 09/22/21 [History] Rivaroxaban [Xarelto] 2.5 mg PO AC-BID 09/22/21 [History] Follow up Appointment(s)/Referral(s): Basil Srinivasan MD [Primary Care Provider] - 1-2 days Discharge Disposition: Left Against Medical Advice <Jackie Staples - Last Filed: 09/24/21 17:08> Providers Date of admission: 09/22/21 03:48 Attending physician: Michele Ross MD Primary care physician: Basil Srinivasan MD Hospital Course: I reviewed the documentation as provided by the BOBBY above, who is the original author of this note. I agree with the documented assessment and plan, with the following changes: None
== END 2021-09-24 12:45 | disposition left against medical advice (07) | DRG 894 ==
LOC: EC 00:12 → 4SSUR 03:48
PROVIDERS: ADMIT Internal Medicine; ATTEND Internal Medicine
DX: F10.139 Alcohol abuse with withdrawal, unspecified (principal); E87.1 Hypo-osmolality and hyponatremia; F13.239 Sedative, hypnotic or anxiolytic dependence with withdrawal, unspecified; Z20.822 Contact with and (suspected) exposure to COVID-19; E87.6 Hypokalemia; D72.829 Elevated white blood cell count, unspecified; E83.42 Hypomagnesemia; E86.0 Dehydration; I11.0 Hypertensive heart disease with heart failure; I50.9 Heart failure, unspecified; F17.210 Nicotine dependence, cigarettes, uncomplicated; F20.9 Schizophrenia, unspecified; F31.9 Bipolar disorder, unspecified; F41.9 Anxiety disorder, unspecified; F90.9 Attention-deficit hyperactivity disorder, unspecified type; G89.29 Other chronic pain; J44.9 Chronic obstructive pulmonary disease, unspecified; M41.9 Scoliosis, unspecified; T51.0X1A Toxic effect of ethanol, accidental (unintentional), initial encounter; Y90.6 Blood alcohol level of 120-199 mg/100 ml; K58.9 Irritable bowel syndrome, unspecified; Z53.29 Procedure and treatment not carried out because of patient's decision for other reasons; Z80.3 Family history of malignant neoplasm of breast; Z79.899 Other long term (current) drug therapy; Z82.41 Family history of sudden cardiac death; Z82.49 Family history of ischemic heart disease and other diseases of the circulatory system; Z86.718 Personal history of other venous thrombosis and embolism; Z86.14 Personal history of Methicillin resistant Staphylococcus aureus infection; Z87.820 Personal history of traumatic brain injury; Z91.013 Allergy to seafood; Z87.01 Personal history of pneumonia (recurrent); Z81.1 Family history of alcohol abuse and dependence; Z88.6 Allergy status to analgesic agent; Z71.6 Tobacco abuse counseling; Z98.890 Other specified postprocedural states
CPT/HCPCS: 36415; 70450; 80053; 80306; 80320; 83735; 85025; 85027; 87635; 96361; 96374; 96375; 99285

== ENCOUNTER 2021-10-04 12:14 | Emergency (ER) | payer MEDICARE, OTHER ==
[2021-10-04 12:24] VITALS: BP 146/71; PULSE 84; RESP 18; TEMP 98.4
[2021-10-04] MEDS ORDERED: ASPIRIN 81 MG PO STA (12:54)
[2021-10-04] MEDS ORDERED: ALBUTEROL HFA INHALER INHALATION STA (12:55)
[2021-10-04] MEDS ORDERED: predniSONE 20 MG TAB PO STA (12:55)
[2021-10-04] MEDS ORDERED: clonazePAM 0.5 MG TAB PO STA (12:56)
[2021-10-04 13:38] LABS: Basophils % (A) 1 %; Eosinophils # (A) 0.1 k/uL (0-0.7); Eosinophils % (A) 1 %; HCT 40.2 % (39.0-53.0); HGB 13.3 gm/dL (13.0-17.5); Lymphocytes # (A) 1.7 k/uL (1.0-4.8); Lymphocytes % (A) 37 %; MCH 32.9 pg (25.0-35.0); MCV 99.6 fL (80.0-100.0); Monocytes # (A) 0.3 k/uL (0-1.0); Monocytes % (A) 6 %; Neutrophils # (A) 2.3 k/uL (1.3-7.7); Neutrophils % (A) 53 %; Platelet Count 386 k/uL (150-450); RBC 4.03 m/uL (4.30-5.90); RDW 14.2 % (11.5-15.5); WBC 4.5 k/uL (3.8-10.6)
[2021-10-04 13:48] LABS: ALT 21 U/L (4-49); AST 24 U/L (17-59); African American GFR (CKD) >90 (>60 ml/min/1.73 sqM); Albumin 4.1 g/dL (3.5-5.0); Alkaline Phosphatase 78 U/L (38-126); Anion Gap 10 mmol/L; Blood Urea Nitrogen 5 mg/dL (9-20); Calcium 8.8 mg/dL (8.4-10.2); Carbon Dioxide 29 mmol/L (22-30); Chloride 100 mmol/L (98-107); Glucose 121 mg/dL (74-99); Magnesium 2.1 mg/dL (1.6-2.3); Non-African American GFR(CKD) >90 (>60 ml/min/1.73 sqM); Potassium 3.8 mmol/L (3.5-5.1); Sodium 139 mmol/L (137-145); Total Bilirubin 0.3 mg/dL (0.2-1.3); Total Protein 7.5 g/dL (6.3-8.2)
--- NOTE | 2021-10-04 13:52 | XR ---
EXAMINATION TYPE: XR chest 2V DATE OF EXAM: 10/04/2021 COMPARISON: Chest x-ray June 19, 2019 HISTORY: Chest pain. TECHNIQUE: Frontal and lateral views of the chest are obtained. FINDINGS: There is right middle lobe increased opacity and 2 views. The cardiac silhouette size rem ains within normal limits. The osseous structures are intact. IMPRESSION: Right middle lobe opacity could reflect acute infiltrate. Correlate clinically.
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
[2021-10-04 14:05] LABS: Prothrombin Time 10.8 sec (9.0-12.0)
== END 2021-10-04 15:52 | disposition home or self-care (01) ==
LOC: EC 12:14
DX: F41.9 Anxiety disorder, unspecified (principal); F10.129 Alcohol abuse with intoxication, unspecified; J18.9 Pneumonia, unspecified organism; J44.9 Chronic obstructive pulmonary disease, unspecified; F90.9 Attention-deficit hyperactivity disorder, unspecified type; F32.A Depression, unspecified; F25.9 Schizoaffective disorder, unspecified; F17.200 Nicotine dependence, unspecified, uncomplicated; Z88.6 Allergy status to analgesic agent; Y90.9 Presence of alcohol in blood, level not specified; Z20.822 Contact with and (suspected) exposure to COVID-19
CPT/HCPCS: 99285; 82075; 36415; 94640; 93005; 80053; 83735; 84484; 85025; 85610; 85730; 87635; 71046; J0696; J7512

== ENCOUNTER 2021-10-06 07:23 | Emergency (ER) | payer MEDICARE, OTHER ==
[2021-10-06 07:31] VITALS: RESP 18; TEMP 98.2
[2021-10-06] MEDS ORDERED: SILVER NITRATE APPLICATOR 1 EACH STICK..EA. TOPICAL STA (07:39)
[2021-10-06] MEDS ORDERED: LORazepam 1 MG TAB PO STA (07:43)
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
[2021-10-06 07:50] VITALS: BP 145/82; PULSE 78
== END 2021-10-06 07:53 | disposition home or self-care (01) ==
LOC: EC 07:23
DX: S00.412A Abrasion of left ear, initial encounter (principal); J44.9 Chronic obstructive pulmonary disease, unspecified; F90.9 Attention-deficit hyperactivity disorder, unspecified type; F41.9 Anxiety disorder, unspecified; F31.9 Bipolar disorder, unspecified; F20.9 Schizophrenia, unspecified; Z79.51 Long term (current) use of inhaled steroids; Z72.89 Other problems related to lifestyle; W26.8XXA Contact with other sharp object(s), not elsewhere classified, initial encounter; Y93.K3 Activity, grooming and shearing an animal
CPT/HCPCS: 99283

== ENCOUNTER 2021-10-12 12:21 | Emergency (ER) | payer MEDICARE, OTHER ==
[2021-10-12 12:30] VITALS: TEMP 96.8
[2021-10-12] MEDS ORDERED: SODIUM CHLORIDE 0.9% 1,000 ML IV STA (14:19)
[2021-10-12] MEDS ORDERED: ONDANSETRON 4 MG/2 ML VIAL IVP STA (14:19)
[2021-10-12] MEDS ORDERED: FAMOTIDINE 20 MG/2 ML VIAL IV STA (14:20)
[2021-10-12] MEDS ORDERED: clonazePAM 0.5 MG TAB PO STA ×2 (14:20→17:18)
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
[2021-10-12 14:28] VITALS: RESP 20
[2021-10-12 15:25] LABS: Basophils # (A) 0.1 k/uL (0-0.2); Basophils % (A) 1 %; Eosinophils # (A) 0.5 k/uL (0-0.7); Eosinophils % (A) 7 %; HCT 39.7 % (39.0-53.0); Lymphocytes # (A) 2.2 k/uL (1.0-4.8); Lymphocytes % (A) 27 %; MCH 33.9 pg (25.0-35.0); MCHC 32.9 g/dL (31.0-37.0); MCV 103.2 fL (80.0-100.0); Macrocytosis Slight; Mean Platelet Volume 7.7; Monocytes # (A) 0.7 k/uL (0-1.0); Monocytes % (A) 8 %; Neutrophils # (A) 4.5 k/uL (1.3-7.7); Neutrophils % (A) 55 %; Platelet Count 324 k/uL (150-450); RBC 3.85 m/uL (4.30-5.90); RDW 14.2 % (11.5-15.5); WBC 8.1 k/uL (3.8-10.6)
[2021-10-12 16:49] VITALS: BP 142/83; PULSE 76
[2021-10-12 17:06] LABS: ALT 19 U/L (4-49); AST 19 U/L (17-59); African American GFR (CKD) >90 (>60 ml/min/1.73 sqM); Albumin 3.8 g/dL (3.5-5.0); Alcohol <10 mg/dL; Alkaline Phosphatase 61 U/L (38-126); Amylase 61 U/L (30-110); Anion Gap 3 mmol/L; Blood Urea Nitrogen 10 mg/dL (9-20); Carbon Dioxide 28 mmol/L (22-30); Chloride 107 mmol/L (98-107); Glucose 92 mg/dL (74-99); Lipase 33 U/L (23-300); Non-African American GFR(CKD) >90 (>60 ml/min/1.73 sqM); Potassium 3.9 mmol/L (3.5-5.1); Sodium 138 mmol/L (137-145); Total Bilirubin 0.5 mg/dL (0.2-1.3); Total Protein 6.8 g/dL (6.3-8.2)
== END 2021-10-12 17:42 | disposition home or self-care (01) ==
LOC: EC 12:21
DX: R11.0 Nausea (principal); J44.9 Chronic obstructive pulmonary disease, unspecified; F31.9 Bipolar disorder, unspecified; F41.9 Anxiety disorder, unspecified; F20.9 Schizophrenia, unspecified; F90.9 Attention-deficit hyperactivity disorder, unspecified type; G62.9 Polyneuropathy, unspecified; F17.200 Nicotine dependence, unspecified, uncomplicated; Z79.01 Long term (current) use of anticoagulants; Z79.899 Other long term (current) drug therapy
CPT/HCPCS: 99283; 36415; 80053; 82150; 83690; 85025; 96374; 96375; 96361 ×2; G0480; J2405; 80320

== ENCOUNTER 2021-11-05 05:12 | Emergency (ER) | payer MEDICARE, OTHER ==
[2021-11-05 05:18] VITALS: BP 138/92; PULSE 93; RESP 18; TEMP 96.8
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
[2021-11-05] MEDS ORDERED: dexAMETHasone 2 MG TAB PO STA (05:59)
[2021-11-05] MEDS ORDERED: KETOROLAC 15 MG/ML 1 ML VIAL IM STA (05:59)
[2021-11-05] MEDS ORDERED: LORazepam 1 MG TAB PO STA (05:59)
== END 2021-11-05 06:15 | disposition home or self-care (01) ==
LOC: EC 05:12
DX: M54.6 Pain in thoracic spine (principal); F41.9 Anxiety disorder, unspecified; G89.29 Other chronic pain; J44.9 Chronic obstructive pulmonary disease, unspecified; F90.9 Attention-deficit hyperactivity disorder, unspecified type; F31.9 Bipolar disorder, unspecified; F25.9 Schizoaffective disorder, unspecified; F17.200 Nicotine dependence, unspecified, uncomplicated; Z88.6 Allergy status to analgesic agent
CPT/HCPCS: 99283; 96372; J8540; J1885

== ENCOUNTER 2021-11-15 13:31 | Emergency (ER) | payer MEDICARE, OTHER ==
[2021-11-15 14:18] VITALS: BP 147/88; PULSE 95; RESP 18; TEMP 98.6
[2021-11-15] MEDS ORDERED: ONDANSETRON 4 MG/2 ML VIAL IVP STA (15:41)
[2021-11-15 16:13] LABS: Basophils % (A) 0 %; Eosinophils # (A) 0.1 k/uL (0-0.7); Eosinophils % (A) 1 %; HGB 13.6 gm/dL (13.0-17.5); Lymphocytes # (A) 1.8 k/uL (1.0-4.8); Lymphocytes % (A) 17 %; MCHC 33.1 g/dL (31.0-37.0); MCV 99.6 fL (80.0-100.0); Mean Platelet Volume 7.1; Monocytes # (A) 0.6 k/uL (0-1.0); Monocytes % (A) 6 %; Neutrophils # (A) 7.7 k/uL (1.3-7.7); Neutrophils % (A) 74 %; Platelet Count 414 k/uL (150-450); RBC 4.12 m/uL (4.30-5.90); RDW 13.3 % (11.5-15.5); WBC 10.4 k/uL (3.8-10.6)
[2021-11-15 16:18] LABS: ALT 21 U/L (4-49); AST 25 U/L (17-59); African American GFR (CKD) >90 (>60 ml/min/1.73 sqM); Albumin 4.4 g/dL (3.5-5.0); Alkaline Phosphatase 101 U/L (38-126); Anion Gap 10 mmol/L; Blood Urea Nitrogen 6 mg/dL (9-20); Calcium 8.9 mg/dL (8.4-10.2); Carbon Dioxide 23 mmol/L (22-30); Chloride 98 mmol/L (98-107); Glucose 90 mg/dL (74-99); Lipase 31 U/L (23-300); Non-African American GFR(CKD) >90 (>60 ml/min/1.73 sqM); Potassium 4.4 mmol/L (3.5-5.1); Sodium 131 mmol/L (137-145); Total Bilirubin 0.5 mg/dL (0.2-1.3)
[2021-11-15 16:23] LABS: Appearance,Urine Clear (Clear); Bilirubin,Urine Negative (Negative); Blood,Urine Negative (Negative); Color,Urine Colorless; Glucose,Urine (UA) Negative (Negative); Ketones,Urine Negative (Negative); Leukocyte Esterase,Urine Negative (Negative); Nitrite,Urine Negative (Negative); Protein,Urine Negative (Negative); Specific Gravity,Urine 1.002 (1.001-1.035); Urobilinogen,Urine <2.0 mg/dL (<2.0)
[2021-11-15] MEDS ORDERED: clonazePAM 0.5 MG TAB PO STA (16:34)
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
== END 2021-11-15 16:52 | disposition home or self-care (01) ==
LOC: EC 13:31
DX: R11.0 Nausea (principal); J44.9 Chronic obstructive pulmonary disease, unspecified; F90.9 Attention-deficit hyperactivity disorder, unspecified type; F41.9 Anxiety disorder, unspecified; F31.9 Bipolar disorder, unspecified; F25.9 Schizoaffective disorder, unspecified; F17.200 Nicotine dependence, unspecified, uncomplicated; Z88.6 Allergy status to analgesic agent
CPT/HCPCS: 99284; 96374; 36415; 80053; 83690; 85025; 81003; J2405

== ENCOUNTER 2021-12-11 18:38 | Inpatient (IN) | payer MEDICARE, OTHER ==
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
[2021-12-11 19:24] LABS: Basophils % (A) 0 %; Eosinophils # (A) 0.1 k/uL (0-0.7); Eosinophils % (A) 1 %; HCT 36.2 % (39.0-53.0); HGB 12.5 gm/dL (13.0-17.5); Lymphocytes # (A) 1.2 k/uL (1.0-4.8); Lymphocytes % (A) 9 %; MCH 34.3 pg (25.0-35.0); MCHC 34.7 g/dL (31.0-37.0); MCV 98.9 fL (80.0-100.0); Mean Platelet Volume 7.1; Monocytes # (A) 0.6 k/uL (0-1.0); Monocytes % (A) 4 %; Neutrophils # (A) 11.7 k/uL (1.3-7.7); Neutrophils % (A) 85 %; Platelet Count 260 k/uL (150-450); RBC 3.66 m/uL (4.30-5.90); RDW 13.7 % (11.5-15.5); WBC 13.7 k/uL (3.8-10.6)
[2021-12-11 19:33] LABS: INR 0.9 (<1.2); Prothrombin Time 9.9 sec (9.0-12.0)
[2021-12-11 19:36] LABS: ALT 42 U/L (4-49); AST 44 U/L (17-59); African American GFR (CKD) >90 (>60 ml/min/1.73 sqM); Albumin 3.7 g/dL (3.5-5.0); Alkaline Phosphatase 99 U/L (38-126); Anion Gap 11 mmol/L; Blood Urea Nitrogen 3 mg/dL (9-20); Calcium 8.2 mg/dL (8.4-10.2); Carbon Dioxide 25 mmol/L (22-30); Chloride 85 mmol/L (98-107); Glucose 118 mg/dL (74-99); Lipase 51 U/L (23-300); Magnesium 1.4 mg/dL (1.6-2.3); Non-African American GFR(CKD) >90 (>60 ml/min/1.73 sqM); Potassium 3.8 mmol/L (3.5-5.1); Sodium 121 mmol/L (137-145); Total Bilirubin 0.4 mg/dL (0.2-1.3); Total Protein 6.6 g/dL (6.3-8.2)
[2021-12-11 19:39] LABS: Alcohol 148 mg/dL
--- NOTE | 2021-12-11 19:46 | XR ---
EXAMINATION TYPE: XR chest 2V DATE OF EXAM: 12/11/2021 COMPARISON: 10/04/2021 HISTORY: Chest pain TECHNIQUE: FINDINGS: There is no heart failure nor confluent pneumonic infiltrate. There is some linear density in the right middle lobe consistent with scarring and atelectasis. There are no hilar masses. Heart s ize is normal. There are chest leads. Costophrenic angles are clear. IMPRESSION: Right middle lobe scarring and atelectasis without change. No acute lung disease.
[2021-12-11] MEDS ORDERED: MAGNESIUM SULFATE-D5W PMX 1 GM in DEXTROSE/WATER 1 100ML.BAG IVPB ONE (19:57)
[2021-12-11] MEDS ORDERED: ONDANSETRON 4 MG/2 ML VIAL IVP STA (20:32)
[2021-12-11] MEDS ORDERED: LORazepam 2 MG/ML INJ IV STA (20:32)
[2021-12-11] MEDS ORDERED: NALOXONE 0.4 MG/ML 1 ML VIAL IV PRN (20:53)
[2021-12-11] MEDS ORDERED: ACETAMINOPHEN TAB 325 MG TAB PO PRN (20:53)
[2021-12-11] MEDS: SODIUM CHLORIDE 0.9% 1,000 ML IV SCH (21:04)
[2021-12-11] MEDS ORDERED: METOPROLOL TARTRATE 25 MG TAB PO STA (22:10)
[2021-12-11] MEDS ORDERED: ATORVASTATIN 80 MG TAB PO ONE (22:10)
[2021-12-11] MEDS ORDERED: NALOXONE 0.4 MG/ML 10 ML VIAL IVP PRN (22:10)
[2021-12-11] MEDS ORDERED: ASPIRIN 81 MG PO STA (22:11)
[2021-12-11] MEDS ORDERED: THIAMINE 100 MG/ML 2 ML VIAL IM STA (22:14)
[2021-12-11] MEDS ORDERED: LORazepam 2 MG/ML INJ IV PRN ×2 (22:14)
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
[2021-12-11] MEDS: THIAMINE 100 MG TAB PO SCH (23:08)
[2021-12-11] MEDS: LORazepam 2 MG/ML INJ IV PRN (23:54)
[2021-12-12 07:24] LABS: ALT 42 U/L (4-49); AST 44 U/L (17-59); African American GFR (CKD) >90 (>60 ml/min/1.73 sqM); Albumin 3.5 g/dL (3.5-5.0); Alkaline Phosphatase 114 U/L (38-126); Anion Gap 3 mmol/L; Blood Urea Nitrogen 3 mg/dL (9-20); Calcium 8.5 mg/dL (8.4-10.2); Carbon Dioxide 32 mmol/L (22-30); Chloride 97 mmol/L (98-107); Glucose 99 mg/dL (74-99); Magnesium 2.1 mg/dL (1.6-2.3); Non-African American GFR(CKD) >90 (>60 ml/min/1.73 sqM); Potassium 4.2 mmol/L (3.5-5.1); Sodium 132 mmol/L (137-145); Total Bilirubin 0.8 mg/dL (0.2-1.3); Total Protein 6.7 g/dL (6.3-8.2)
[2021-12-12 07:51] LABS: HCT 39.6 % (39.0-53.0); HGB 13.4 gm/dL (13.0-17.5); MCH 33.9 pg (25.0-35.0); MCV 99.8 fL (80.0-100.0); Mean Platelet Volume 7.5; Platelet Count 223 k/uL (150-450); RBC 3.96 m/uL (4.30-5.90); WBC 6.5 k/uL (3.8-10.6)
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
[2021-12-12] MEDS: THIAMINE 100 MG TAB PO SCH ×2 (14:07→19:00)
[2021-12-12] MEDS: SODIUM CHLORIDE 0.9% 1,000 ML IV SCH ×2 (14:08→23:04)
[2021-12-12] MEDS: GABAPENTIN 300 MG CAP PO SCH ×3 (14:08→19:01)
[2021-12-12] MEDS: RIVAROXABAN 2.5 MG TABLET PO SCH ×2 (14:09→22:10)
[2021-12-12] MEDS: ASPIRIN 81 MG PO SCH (14:09)
[2021-12-12] MEDS: LORazepam 2 MG/ML INJ IV PRN (16:46)
--- NOTE | 2021-12-12 17:20 | P.PN ---
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 He presented to the emergency department with a chief complaint of chest pain. Patient reports midsternal chest pain radiating into his left arm. Patient reports pain has been intermittent off and on over the past few days but reports has been persistent since yesterday evening. Patient reports drinking 1 pint of vodka daily along with beers and reports last drink being yesterday. In the emergency department patient underwent full evaluation. He was found to have mild leukocytosis with WBC count of 13.7, normocytic normochromic anemia with hemoglobin of 12.5, hyponatremia with sodium of 121, hypochloremia with chloride of 85, and hypomagnesemia with magnesium of 1.4. Troponin was negative at less than 0.012. Alcohol upon arrival was 148. EKG was completed revealing sinus tachycardia at 102 bpm with no noted T-wave or ST abnormalities. Was admitted under our services with consultation to cardiology. Physical exam: Patient was seen and fully evaluated at the bedside. He reports continued mild pain to mid sternal chest and currently denies any radiation of this pain. Patient also reports feeling anxious and reports he feels he is withdrawing. Patient is being medicated with benzodiazepines per [facility] protocol. Patient currently denies having any headache, lightheadedness, dizziness, changes in vision or hearing, palpitations, shortness of breath, nausea, vomiting, or experiencing any numbness/tingling/weakness in his extremities. Patient denies currently experiencing any visual, auditory, or tactile hallucinations. Vital signs reviewed and stable. General: Nontoxic, no distress and appears stated age. Derm: Skin warm and dry, normal coloration for ethnicity. Head: Atraumatic, normocephalic and symmetric. Eyes: EOMs intact, no lid lag, and anicteric sclera Mouth: no lip lesions, mucus membranes moist Cardiovascular: regular rate and rhythm with normal S1S2, no murmur, positive posterior tibial pulses bilaterally, and cap refill < 2 seconds. Lungs: Respirations even, regular, and unlabored on room air. Lungs CTA flaco aterally, no rhonchi, no rales, no wheezing, and no accessory muscle usage. Abdominal: soft, nontender to palpation, no guarding, no appreciable organomegaly Ext: ROM intact. No gross muscle atrophy, no edema, no contractures Neuro: Speech clear, face symmetrical and CN II-XII grossly intact with no noted focal neuro deficits Psych: Alert and oriented to person, place, time, and situation. Appropriate and pleasant affect. Assessment and Plan of Care: Chest pain, rule out acute coronary event -Cardiology consult, appreciate further recommendations -Telemetry monitoring -Trend troponins -Cardiac diet, NPO at midnight -Aspirin and atorvastatin -Lipid profile with a.m. labs. -Echocardiogram Hyponatremia, improving with IV hydration -Hyponatremia likely secondary to significant dehydration resulting from daily alcohol use/abuse. Hypomagnesemia, resolved Alcohol abuse -[facility] Protocol with symptom triggered medication management with benzodiazepines. -Thiamine 100 mg twice a day -Multivitamin daily -Folate 1 mg daily -Seizure, fall, aspiration, and elopement precautions in place. -Continued close monitoring of electrolytes and replace as needed. -Telemetry monitoring. Chronic pain -Continue daily home medication regimen with Buprenorphine to avoid further withdrawal. History of DVTs -Continue oral anticoagulant with Xarelto. Nicotine dependence -Educated and encouraged patient on the benefits of smoking cessation and the risks of continued use. -Nicotine patch. CODE STATUS: Full code DVT prophylaxis: Xarelto Discussed with: patient and RN Anticipated discharge date: Tomorrow morning Anticipated discharge place: Home A total of 40 minutes was spent on the care of this complex patient more than 50% of the time was spent in counseling and care coordination. I reviewed the documentation as provided by the BOBBY above, who is the original author of this note. I agree with the documented assessment and plan, with the following changes: None Objective - Vital Signs Vital signs: Vital Signs Temp 98.7 F 12/11/21 18:50 Pulse 88 12/12/21 04:28 Resp 16 12/12/21 04:28 BP 130/89 12/12/21 04:28 Pulse Ox 97 12/12/21 01:00 Intake & Output 12/11/21 12/12/21 12/12/21 18:59 06:59 18:59 Weight 72.121 kg - Labs CBC & Chem 7: 12/12/21 06:00 12/12/21 06:40 Labs: Abnormal Lab Results - Last 24 Hours (Table) 12/11/21 12/11/21 12/12/21 Range/Units 19:04 19:04 06:00 WBC 13.7 H (3.8-10.6) k/uL RBC 3.66 L 3.96 L (4.30-5.90) m/uL Hgb 12.5 L (13.0-17.5) gm/dL Hct 36.2 L (39.0-53.0) % Neutrophils # 11.7 H (1.3-7.7) k/uL Sodium 121 L (137-145) mmol/L Chloride 85 L (98-107) mmol/L Carbon Dioxide (22-30) mmol/L BUN 3 L (9-20) mg/dL Creatinine 0.38 L (0.66-1.25) mg/dL Glucose 118 H (74-99) mg/dL Calcium 8.2 L (8.4-10.2) mg/dL Magnesium 1.4 L (1.6-2.3) mg/dL 12/12/21 Range/Units 06:40 WBC (3.8-10.6) k/uL RBC (4.30-5.90) m/uL Hgb (13.0-17.5) gm/dL Hct (39.0-53.0) % Neutrophils # (1.3-7.7) k/uL Sodium 132 L (137-145) mmol/L Chloride 97 L (98-107) mmol/L Carbon Dioxide 32 H (22-30) mmol/L BUN 3 L (9-20) mg/dL Creatinine 0.37 L (0.66-1.25) mg/dL Glucose (74-99) mg/dL Calcium (8.4-10.2) mg/dL Magnesium (1.6-2.3) mg/dL
[2021-12-12] MEDS ORDERED: clonazePAM 1 MG TAB PO STA (22:07)
[2021-12-12] MEDS: BUPRENORPHINE HCL 8 MG SUBLINGUAL SCH (22:09)
[2021-12-12 23:04] LABS: Chol/HDL Ratio 1.68 Ratio
[2021-12-12] MEDS: NICOTINE 21MG/24HR PATCH TRANSDERM SCH (23:19)
[2021-12-13] MEDS: THIAMINE 100 MG TAB PO SCH (06:31)
[2021-12-13] MEDS: GABAPENTIN 300 MG CAP PO SCH ×2 (06:31→12:28)
[2021-12-13] MEDS: BUPRENORPHINE HCL 8 MG SUBLINGUAL SCH ×2 (06:33→12:24)
[2021-12-13] MEDS: NICOTINE 21MG/24HR PATCH TRANSDERM SCH (09:06)
[2021-12-13] MEDS: RIVAROXABAN 2.5 MG TABLET PO SCH (09:06)
[2021-12-13] MEDS: ASPIRIN 81 MG PO SCH (09:07)
[2021-12-13] MEDS: LORazepam 2 MG/ML INJ IV PRN (09:52)
--- NOTE | 2021-12-13 11:39 | P.PN ---
Subjective Progress Note Date: 12/13/21 HISTORY OF PRESENT ILLNESS: This is a 56 year old male with a past medical history significant for alcohol abuse, closed head injury, COPD, paranoid schizophrenia, bipolar disorder, narcotic and illicit drug use, pneumonia and previous chest tube. 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 We have been asked to see the patient in consultation for chest pain. Patient examined at the bedside. The patient reports he has been drinking quite a bit of alcohol the past few days. He presented to the hospital with chest pain. He denied radiation of the pain. Denied shortness of breath. He currently denies any chest pain or pressure. * EKG reveals sinus tachycardia with T wave inversions in V1-V3. * Chest xray right middle lobe scarring and atelectasis without change. No acute lung disease. * Laboratory data: WBC 13.7. Hemoglobin 12.5. Platelet count 260. Sodium 121. Potassium 3.8. BUN 3. Creatinine 0.38. Troponin negative 3. Magnesium 1.4. * Current home cardiac medications include Xarelto 2.5 mg twice a day * Most recent echocardiogram obtained in April 2019 revealing ejection fraction 55%, mild MR, moderate to severe TR, moderate pulmonary hypertension 12/13/2021 Patient examined this morning at the bedside. Patient denies chest pain or pressure. He denies shortness of breath. Vital signs are stable. PHYSICAL EXAM: VITAL SIGNS: Reviewed. GENERAL: Well-developed in no acute distress. HEENT: Head is normocephalic. Pupils are equal, round. Sclerae anicteric. Mucous membranes of the mouth are moist. Neck supple. No JVD or thyromegaly LUNGS: Respirations even and unlabored. Lungs essentially clear to auscultation bilaterally. HEART: Regular rate and rhythm. S1 and S2 heard. ABDOMEN: Soft. Nondistended. Nontender. EXTREMITIES: Normal range of motion. No clubbing or cyanosis. Peripheral pulses intact. No lower extremity edema NEUROLOGIC: Awake and alert. Oriented x 3. ASSESSMENT: Chest pain, atypical, troponin negative 3 Acute alcohol intoxication History of alcohol abuse Nicotine dependence PLAN: An acute coronary event has been ruled out Obtain 2D echo to assess cardiac structure and function Recommend abstinence from alcohol If 2-D echo does not reveal any significant abnormalities, patient may be discharged home from a cardiac standpoint and follow up on an outpatient basis Nurse practitioner note has been reviewed by physician. Signing provider agrees with the documented findings, assessment, and plan of care. Objective - Vital Signs Vital signs: Vital Signs Temp 98.2 F 12/13/21 08:00 Pulse 94 12/13/21 08:00 Resp 16 12/13/21 08:00 BP 129/84 12/13/21 08:00 Pulse Ox 98 12/13/21 08:00 Intake & Output 12/12/21 12/13/21 12/13/21 18:59 06:59 18:59 Intake Total 960 240 Balance 960 240 Weight 72.121 kg Intake: Oral 960 240 Other: Voiding Method Toilet Urinal # Voids 1 1 - Labs CBC & Chem 7: 12/12/21 06:00 12/12/21 06:40 Labs: Abnormal Lab Results - Last 24 Hours (Table) 12/12/21 Range/Units 06:40 Sodium 132 L (137-145) mmol/L Chloride 97 L (98-107) mmol/L Carbon Dioxide 32 H (22-30) mmol/L BUN 3 L (9-20) mg/dL Creatinine 0.37 L (0.66-1.25) mg/dL HDL Cholesterol 86.20 H (40.00-60.00) mg/dL
[2021-12-13] MEDS: SODIUM CHLORIDE 0.9% 1,000 ML IV SCH (12:28)
[2021-12-13 13:15] VITALS: BP 135/86; PULSE 81; RESP 14; TEMP 98.8
--- NOTE | 2021-12-13 16:46 | P.DS ---
Providers Date of admission: 12/11/21 20:53 Expected date of discharge: 12/13/21 Attending physician: Michele Ross MD Consults: 12/11/21 22:10 Consult Physician Routine Consulting Provider: [facility] Consult Reason/Comments: Chest Pain Do you want consulting provider notified?: Yes, Notify in am Primary care physician: Basil Srinivasan MD Hospital Course: Discharge Diagnosis: Chest pain, acute coronary event ruled out. Echocardiogram pending patient will need to follow up outpatient with cardiology for results. Hyponatremia, improved with IV hydration. Likely secondary to diuresis from daily EtOH abuse. Patient educated on the importance of alcohol cessation and risks of continued use. Hypomagnesemia, resolved Alcohol abuse, Patient educated on the importance of alcohol cessation and risks of continued use. Chronic pain , Continue daily home medication regimen with Buprenorphine to avoid further withdrawal. History of DVTs. Continue oral anticoagulant with Xarelto. Nicotine dependence. Educated and encouraged patient on the benefits of smoking cessation and the risks of continued use. 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 He presented to the emergency department with a chief complaint of chest pain. Patient reports midsternal chest pain radiating into his left arm. Patient reports pain has been intermittent off and on over the past few days but reports has been persistent since yesterday evening. Patient reports drinking 1 pint of vodka daily along with beers and reports last drink being yesterday. In the emergency department patient underwent full evaluation. He was found to have mild leukocytosis with WBC count of 13.7, normocytic normochromic anemia with hemoglobin of 12.5, hyponatremia with sodium of 121, hypochloremia with chloride of 85, and hypomagnesemia with magnesium of 1.4. Troponin was negative at less than 0.012. Alcohol upon arrival was 148. EKG was completed revealing sinus tachycardia at 102 bpm with no noted T-wave or ST abnormalities. Patient was admitted under our services with consultation to cardiology. Troponins trended throughout the night all less than 0.012. Patient reports this morning that he now remembers why his chest hurt and reports that he was moving his dryer and was trying to push through the door and his chest Bumping into the corner of the dryer. Patient reports noticing a small bruise on his chest this morning. Patient otherwise reports full resolution of chest pain/discomfort. Hyponatremia significantly improved after IV fluid hydration. Patient requesting discharge and very anxious to go home. Echocardiogram was completed, however results are still pending. Cardiology notified and agreeable for patient to be discharged and follow-up outpatient in cardiology office to review echocardiogram results. Patient is medically stable for discharge at this time, he was educated on the importance of alcohol cessation and risks of continued use. Patient also encouraged to stop smoking. Patient verbalized understanding of need to follow-up outpatient with PCP and cardiology as recommended. Patient medically stable for discharge at this time. Physical exam: Vital signs reviewed and stable. General: Nontoxic, no distress and appears stated age. Derm: Skin warm and dry, normal coloration for ethnicity. Head: Atraumatic, normocephalic and symmetric. Eyes: EOMs intact, no lid lag, and anicteric sclera Mouth: no lip lesions, mucus membranes moist Cardiovascular: regular rate and rhythm with normal S1S2, no murmur, positive posterior tibial pulses bilaterally, and cap refill < 2 seconds. Lungs: Respirations even, regular, and unlabored on room air. Lungs CTA bilaterally, no rhonchi, no rales, no wheezing, and no accessory muscle usage. Abdominal: soft, nontender to palpation, no guarding, no appreciable organomegaly Ext: ROM intact. No gross muscle atrophy, no edema, no contractures Neuro: Speech clear, face symmetrical and CN II-XII grossly intact with no noted focal neuro deficits Psych: Alert and oriented to person, place, time, and situation. Appropriate and pleasant affect. A total of 39 minutes of time were spent preparing this complex discharge summary. Pt was discharged on 12/13/21 at 2:50 PM. I reviewed the documentation as provided by the BOBBY above, who is the original author of this note. I agree with the documented assessment and plan, with the following changes: None Patient Condition at Discharge: Stable Plan - Discharge Summary Discharge Rx Participant: No New Discharge Prescriptions: New Thiamine [Vitamin B-1] 100 mg PO BID-W/MEALS tab Continue Gabapentin 600 mg PO TID-W/MEALS buprenorphine HCL [Subutex] 8 mg SL AC-TID Butalb/APAP/Caff 50-325-40Mg [Fioricet 50-325-40] 1 tab PO Q4-6H PRN PRN Reason: Migraine Headache Rivaroxaban [Xarelto] 2.5 mg PO BID Baclofen [Lioresal] 20 mg PO ACHS clonazePAM [KlonoPIN] 1 mg PO AC-TID Discharge Medication List Gabapentin 600 mg PO TID-W/MEALS 04/27/19 [History] buprenorphine HCL [Subutex] 8 mg SL AC-TID 04/27/19 [History] Butalb/APAP/Caff 50-325-40Mg [Fioricet 50-325-40] 1 tab PO Q4-6H PRN 07/12/21 [History] Rivaroxaban [Xarelto] 2.5 mg PO BID 09/22/21 [History] Baclofen [Lioresal] 20 mg PO ACHS 11/15/21 [History] clonazePAM [KlonoPIN] 1 mg PO AC-TID 11/15/21 [History] Thiamine [Vitamin B-1] 100 mg PO BID-W/MEALS tab 12/13/21 [Rx] Follow up Appointment(s)/Referral(s): Basil Srinivasan MD [Primary Care Provider] - 12/15/21 1:00 pm Koby Mayer MD [STAFF PHYSICIAN] - 12/22/21 2:15 pm Patient Instructions/Handouts: Chest Pain (DC), Abuse of Alcohol (DC) Activity/Diet/Wound Care/Special Instructions: Activity: As tolerated. Take breaks as needed. Diet: Heart healthy and carb consistent diet. Avoid salts, or foods with hidden salts such as canned or boxed foods and frozen dinners. Extra salt makes your heart work harder and traps the fluid in your body for longer. Special Instructions: Take all of your medications as directed and remember to keep all of your doctor's appointments and follow-up as needed. Strongly encourage cessation of all alcohol use. You are being discharged home prior to receiving her echocardiogram results. It is imperative that you follow-up as we recommended by the sanding machine buffer to obtain these results and for follow-up care. Thank you for allowing us to participate in your care, it was truly a pleasure having you for our patient!!! Discharge Disposition: HOME SELF-CARE
--- NOTE | 2021-12-13 17:44 | CA ---
Transthoracic Echo Report Name: Darryl Long Age: 56 Gender: M : 1965 Exam Date: 12/12/2021 14:10 Exam Location: [place] [facility] Ht (in): 69 Wt (lb): 159 Ordering Physician: Katherine Lima Attending/Referring Phys: [id number], Clarence Arboriculturist Alexandria Chun RDCS Procedure CPT: Indications: LV function Cardiac Hx: Technical Quality: Technically difficult study Contrast 1: Lumason Total Dose (mL): 4 Contrast 2: Total Dose (mL): MEASUREMENTS (Male / Female) Normal Values 2D ECHO LV Diastolic Diameter PLAX 4.2 cm 4.2 - 5.9 / 3.9 - 5.3 cm LV Systolic Diameter PLAX 2.3 cm IVS Diastolic Thickness 0.9 cm 0.6 - 1.0 / 0.6 - 0.9 cm LVPW Diastolic Thickness 1.0 cm 0.6 - 1.0 / 0.6 - 0.9 cm LV Relative Wall Thickness 0.4 M-MODE Aortic Root Diameter MM 3.5 cm DOPPLER AV Peak Velocity 107.0 cm/s AV Peak Gradient 4.6 mmHg LVOT Peak Velocity 91.5 cm/s LVOT Peak Gradient 3.3 mmHg MV Area PHT 4.1 cm Mitral E Point Velocity 41.0 cm/s Mitral A Point Velocity 55.7 cm/s Mitral E to A Ratio 0.7 MV Deceleration Time 184.6 ms TR Peak Velocity 177.0 cm/s TR Peak Gradient 12.5 mmHg Right Ventricular Systolic Press 17.3 mmHg FINDINGS Left Ventricle Normal Left ventricular size, wall thickness, systolic function with no obvious regional wall motion abnormalities. Normal Left ventricular diastolic filling pattern. Left ventricular ejection fraction is estimated at 55-60%. Right Ventricle Normal right ventricular size and function. Right Atrium Normal right atrial size. Left Atrium Left atrium not well visualized. Mitral Valve Structurally normal mitral valve. No mitral stenosis, regurgitation or prolapse. Aortic Valve Trileaflet aortic valve. No aortic valve stenosis or regurgitation. Tricuspid Valve Structurally normal tricuspid valve. Mild tricuspid regurgitation. Pulmonic Valve Structurally normal pulmonic valve. Pericardium No pericardial effusion. Aorta Normal size aortic root and proximal ascending aorta. CONCLUSIONS Normal LV size and systolic function. Mild mitral and tricuspid insufficiency. No pericardial effusion Previewed by: Dr. Dereck Fajardo MD (Electronically Signed) Final Date: 13 December 2021 17:43
== END 2021-12-13 15:52 | disposition home or self-care (01) | DRG 313 ==
LOC: EC 18:38 → 3SCARD 20:53
PROVIDERS: ADMIT Internal Medicine; ATTEND Internal Medicine
DX: R07.89 Other chest pain (principal); E87.1 Hypo-osmolality and hyponatremia; F20.0 Paranoid schizophrenia; J98.11 Atelectasis; D64.9 Anemia, unspecified; D72.829 Elevated white blood cell count, unspecified; E83.42 Hypomagnesemia; E87.8 Other disorders of electrolyte and fluid balance, not elsewhere classified; F10.129 Alcohol abuse with intoxication, unspecified; F17.200 Nicotine dependence, unspecified, uncomplicated; F31.9 Bipolar disorder, unspecified; F90.9 Attention-deficit hyperactivity disorder, unspecified type; G89.29 Other chronic pain; J44.9 Chronic obstructive pulmonary disease, unspecified; M41.9 Scoliosis, unspecified; Y90.6 Blood alcohol level of 120-199 mg/100 ml; Z79.01 Long term (current) use of anticoagulants; Z80.3 Family history of malignant neoplasm of breast; Z82.41 Family history of sudden cardiac death; Z82.49 Family history of ischemic heart disease and other diseases of the circulatory system; Z86.718 Personal history of other venous thrombosis and embolism; Z87.820 Personal history of traumatic brain injury
CPT/HCPCS: 36415; 71046; 80053; 80061; 80320; 83690; 83721; 83735; 84484; 85025; 85027; 85610; 85730; 93005; 93306; 96365; 96372; 96374; 96375; 96376; 99285

== ENCOUNTER 2021-12-15 12:23 | Inpatient (IN) | payer MEDICARE, OTHER ==
[2021-12-15] MEDS ORDERED: SODIUM CHLORIDE 0.9% 1,000 ML IV STA ×3 (14:47→17:34)
[2021-12-15] MEDS ORDERED: ASPIRIN 81 MG PO STA (14:47)
[2021-12-15] MEDS ORDERED: MORPHINE SULFATE 4 MG/ML SYRINGE IV STA (14:47)
[2021-12-15] MEDS ORDERED: ONDANSETRON 4 MG/2 ML VIAL IVP STA (14:47)
[2021-12-15 15:31] LABS: Basophils % (A) 0 %; Eosinophils # (A) 0.1 k/uL (0-0.7); Eosinophils % (A) 1 %; HCT 35.3 % (39.0-53.0); HGB 12.4 gm/dL (13.0-17.5); Lymphocytes # (A) 1.2 k/uL (1.0-4.8); Lymphocytes % (A) 10 %; MCH 33.8 pg (25.0-35.0); MCHC 35.1 g/dL (31.0-37.0); MCV 96.1 fL (80.0-100.0); Mean Platelet Volume 9.5; Monocytes # (A) 0.6 k/uL (0-1.0); Monocytes % (A) 5 %; Neutrophils % (A) 83 %; Platelet Count 160 k/uL (150-450); RBC 3.67 m/uL (4.30-5.90); RDW 13.7 % (11.5-15.5); WBC 12.1 k/uL (3.8-10.6)
[2021-12-15 15:43] LABS: INR 1.1 (<1.2); Partial Thromboplastin Time 22.6 sec (22.0-30.0)
--- NOTE | 2021-12-15 16:04 | XR ---
EXAMINATION TYPE: XR chest 2V DATE OF EXAM: 12/15/2021 COMPARISON: Chest x-ray 4 days ago. HISTORY: History of EtOH use with weakness. TECHNIQUE: Frontal and lateral views of the chest are obtained. FINDINGS: Slightly elevated left hemidiaphragm. There is mild chronic parenchymal changes without era picious new focal air space opacity, pleural effusion, or pneumothorax seen. Persistent right middle lobe increased opacity. The cardiac silhouette size is stable and within normal limits. The osseou s structures are intact. IMPRESSION: Stable right midlung linear opacity favoring scarring and/or atelectasis. No new acute in filtrate.
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
[2021-12-15 16:35] LABS: ALT 32 U/L (4-49); AST 37 U/L (17-59); African American GFR (CKD) >90 (>60 ml/min/1.73 sqM); Albumin 3.7 g/dL (3.5-5.0); Alkaline Phosphatase 110 U/L (38-126); Amylase 89 U/L (30-110); Anion Gap 9 mmol/L; Blood Urea Nitrogen 6 mg/dL (9-20); Carbon Dioxide 21 mmol/L (22-30); Chloride 83 mmol/L (98-107); Glucose 92 mg/dL (74-99); Lipase 26 U/L (23-300); Magnesium 1.6 mg/dL (1.6-2.3); Non-African American GFR(CKD) >90 (>60 ml/min/1.73 sqM); Potassium 4.2 mmol/L (3.5-5.1); Total Bilirubin 0.8 mg/dL (0.2-1.3); Total Protein 6.7 g/dL (6.3-8.2)
[2021-12-15 16:51] LABS: Sodium 113 mmol/L (137-145)
[2021-12-15 16:54] LABS: Alcohol 157 mg/dL
[2021-12-15] MEDS ORDERED: LORazepam 2 MG/ML INJ IV STA (16:58)
[2021-12-15] MEDS ORDERED: THIAMINE 100 MG/ML 2 ML VIAL IM STA (16:59)
[2021-12-15] MEDS ORDERED: LORazepam 2 MG/ML INJ IV PRN ×2 (16:59)
[2021-12-15] MEDS ORDERED: NALOXONE 0.4 MG/ML 1 ML VIAL IV PRN (17:51)
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
[2021-12-15] MEDS: DEXTROSE 5% IN WATER 1,000 ML IV SCH (19:59)
[2021-12-15] MEDS: MAGNESIUM SULFATE-D5W PMX 1 GM in DEXTROSE/WATER 1 100ML.BAG IVPB SCH ×2 (20:02→21:20)
[2021-12-15] MEDS: LORazepam 2 MG/ML INJ IV PRN ×2 (20:57→23:57)
[2021-12-15] MEDS: RIVAROXABAN 2.5 MG TABLET PO SCH (21:21)
[2021-12-15] MEDS: ACETAMINOPHEN TAB 325 MG TAB PO PRN (23:52)
[2021-12-16] MEDS ORDERED: DESMOPRESSIN ACETATE 4 MCG/ML VIAL (MDV) IV ONE ×3 (03:49→15:21)
--- NOTE | 2021-12-16 03:50 | P.PN ---
Progress Note - Text Progress Note Date: 12/16/21 Discussed the case with Fitness Worker money laundering investigator regarding hyponatremia @ 0200. It was recommended that in light of the patient's suspected chronic hyponatremia, that the serum sodium be lowered to at least 120-121 mmol/L tonight. He further recommended 1 mcg IV desmopressin if Na continues to increase despite use of 200 ml/hr D5W. Repeat Na 125 mmol/L. Will hold D5W and administer DDAVP.
[2021-12-16] MEDS: LORazepam 2 MG/ML INJ IV PRN ×6 (05:02→23:22)
[2021-12-16] MEDS: DEXTROSE 5% IN WATER 1,000 ML IV SCH ×2 (05:23→15:49)
[2021-12-16] MEDS: Buprenorphine Hcl [Subutex] 8 MG Tab.Subl SUBLINGUAL SCH ×3 (06:11→20:36)
[2021-12-16] MEDS: THIAMINE 100 MG TAB PO SCH ×2 (06:31→18:23)
[2021-12-16] MEDS: GABAPENTIN 300 MG CAP PO SCH ×3 (06:31→18:23)
[2021-12-16 07:18] LABS: Basophils % (A) 0 %; Eosinophils % (A) 0 %; HCT 36.6 % (39.0-53.0); HGB 12.1 gm/dL (13.0-17.5); Lymphocytes # (A) 1.1 k/uL (1.0-4.8); Lymphocytes % (A) 13 %; MCH 32.7 pg (25.0-35.0); MCHC 33.1 g/dL (31.0-37.0); MCV 98.6 fL (80.0-100.0); Mean Platelet Volume 7.4; Monocytes # (A) 0.8 k/uL (0-1.0); Monocytes % (A) 9 %; Neutrophils # (A) 6.1 k/uL (1.3-7.7); Neutrophils % (A) 75 %; Platelet Count 258 k/uL (150-450); RBC 3.71 m/uL (4.30-5.90); RDW 13.1 % (11.5-15.5); WBC 8.1 k/uL (3.8-10.6)
[2021-12-16] MEDS ORDERED: NON FORMULARY DRUG (Thiamine Hcl [Vitamin B-1] 100 MG Tablet) PO SCH (07:30)
[2021-12-16 07:37] LABS: African American GFR (CKD) >90 (>60 ml/min/1.73 sqM); Anion Gap 3 mmol/L; Blood Urea Nitrogen 6 mg/dL (9-20); Calcium 8.3 mg/dL (8.4-10.2); Carbon Dioxide 27 mmol/L (22-30); Chloride 98 mmol/L (98-107); Glucose 89 mg/dL (74-99); Magnesium 2.5 mg/dL (1.6-2.3); Non-African American GFR(CKD) >90 (>60 ml/min/1.73 sqM); Potassium 3.9 mmol/L (3.5-5.1); Sodium 128 mmol/L (137-145)
--- NOTE | 2021-12-16 09:17 | P.PN ---
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 He presented to the emergency department with a chief complaint of nausea and vomiting after reported binge drinking 48 hours. Patient underwent recent hospitalization 12/11/21 through 12/13/21 secondary to EtOH intoxication with withdrawal and chest pain. Patient was detoxed and underwent full cardiac evaluation and was discharged home on 12/13/21. Reports after discharge he drank an excessive amount of alcohol and became significantly ill with projectile vomiting yesterday evening and continuing today. Patient reports last drinking alcohol yesterday evening. In the emergency department, patient underwent full evaluation. EKG showing normal sinus rhythm at 88 bpm with no noted T-wave or ST abnormalities. CBC revealing mild leukocytosis with WBC count of 12.1 and mild anemia with hemoglobin of 12.4 otherwise normal findings. CMP revealing severe hyponatremia with sodium of 113 and metabolic alkalosis with chloride 83, carbon dioxide 21, an anion gap of 9. Serum Alcohol level of 157. Patient was admitted under our services with consultation to rip saw operator for further evaluation. Patient seen and fully evaluated at bedside. Patient alert to person, place, time, and situation. Patient showing no signs of neurological deficits. He denies having a headache, lightheadedness, dizziness, chest pain, palpitations, shortness of breath, abdominal pain, or experiencing any numbness/tingling/weakness in his extremities. Patient denies having any falls or injuries. Patient does report previously experiencing nausea, vomiting, and epigastric pain but reports it has resolved since receiving medication given upon arrival in the emergency department. Patient currently reports that he feels shaky and anxious and requesting Ativan for his withdrawal. Patient was informed and educated about the severity of his hyponatremia. Repeat sodium after 2L bolus 122, rising too quickly. Called and spoke with Computer Aided Design Designer, Dr. Lopez. Normal saline infusion stopped at this time and patient started on D5 W 150 mL per hour. Sodium to be drawn every 2 hours and once sodium is down to 118, all fluids to be stopped. RN notified of order changes. 12/16/21: Patient's sodium continued to rise overnight up to 128, patient was given dose of DDAVP and D5W infusion was increased. Nephrology following closely and managing correction of hyponatremia at this time secondary to initial rapid correction. Patient free from any seizure activity or noted neuro deficits with the exception of tremors likely secondary to alcohol withdrawal. Patient denies having any headache, lightheadedness, dizziness, chest pain, palpitations, shortness of breath, nausea, vomiting, or experiencing any numbness/tingling/weakness in his extremities. Vital signs stable. Patient to continue D5W infusion with close monitoring of sodium as directed by pre parole counseling aide. Neuro checks to continue every 4 hours and seizure and fall precautions remain in place. Physical exam: Vital signs reviewed and stable. General: Nontoxic, no distress and appears stated age. Derm: Skin warm and dry, normal coloration for ethnicity. Head: Atraumatic, normocephalic and symmetric. Eyes: EOMs intact, no lid lag, and anicteric sclera Mouth: no lip lesions, mucus membranes moist Cardiovascular: regular rate and rhythm with normal S1S2, no murmur, positive posterior tibial pulses bilaterally, and cap refill < 2 seconds. Lungs: Respirations even, regular, and unlabored on room air. Lungs CTA bilaterally, no rhonchi, no rales, no wheezing, and no accessory muscle usage. Abdominal: soft, nontender to palpation, no guarding, no appreciable organomeg jet Ext: ROM intact. No gross muscle atrophy, no edema, no contractures Neuro: Speech clear, face symmetrical and CN II-XII grossly intact with no noted focal neuro deficits Psych: Alert and oriented to person, place, time, and situation. Appropriate and pleasant affect. Assessment and Plan of Care: Hyponatremia, Likely beer potomania Intractable nausea and vomiting resulting from binge drinking, resolved Metabolic alkalosis secondary to above, resolved -Sodium 113. Hyponatremia likely acute hyponatremia secondary to binge drinking followed by intractable vomiting but do not have sodium within 48 hours so will need to raise levels slowly. -Neuro checks every 4 hours -Continuous telemetry monitoring -Seizure precautions -Patient received 2 L bolus of 0.9% normal saline and will receive maintenance infusion of 0.9% normal saline at 100 mL's per hour. -Sodium levels to be assessed every 6 hours. -Computer Network And Systems Engineer was consulted for evaluation. -Antiemetics as needed for nausea/vomiting Alcohol abuse Alcohol withdrawal -CIWA Protocol with symptom triggered medication management with benzodiazepines. -Thiamine 100 mg twice a day -Multivitamin daily -Folate 1 mg daily -Seizure, fall, aspiration, and elopement precautions in place. -Continued close monitoring of electrolytes and replace as needed. -Telemetry monitoring. Hypomagnesemia -Replaced, we will continue to monitor with repeat a.m. labs. Chronic pain -Continue daily home medication regimen with Buprenorphine to avoid further withdrawal. History of DVTs -Continue oral anticoagulant with Xarelto. Nicotine dependence -Educated and encouraged patient on the benefits of smoking cessation and the risks of continued use. -Nicotine patch. The patient is admitted with an anticipated greater than 2 midnight stay for evaluation of severe hyponatremia CODE STATUS: Full code DVT prophylaxis: Xarelto Discussed with: patient and RN Anticipated discharge date: Clinical course to determine Anticipated discharge place: Home, we will continue to try and encourage patient to be admitted to inpatient drug and alcohol rehabilitation facility A total of 43 minutes was spent on the care of this complex patient more than 50% of the time was spent in counseling and care coordination. Objective - Vital Signs Vital signs: Vital Signs Temp 99.1 F 12/16/21 09:00 Pulse 82 12/16/21 09:00 Resp 16 12/16/21 09:00 BP 121/67 12/16/21 09:00 Pulse Ox 94 L 12/16/21 09:00 Intake & Output 12/15/21 12/16/21 12/16/21 18:59 06:59 18:59 Output Total 2875 350 Balance -2875 -350 Weight 63.503 kg 57.5 kg Output: Urine 2875 350 Straight 600 Other: Voiding Method Urinal Urinal # Voids 1 1 - Labs CBC & Chem 7: 12/16/21 06:37 12/16/21 14:42 Labs: Abnormal Lab Results - Last 24 Hours (Table) 12/15/21 12/15/21 12/15/21 Range/Units 15:05 16:09 18:51 WBC 12.1 H (3.8-10.6) k/uL RBC 3.67 L (4.30-5.90) m/uL Hgb 12.4 L (13.0-17.5) gm/dL Hct 35.3 L (39.0-53.0) % Neutrophils # 10.0 H (1.3-7.7) k/uL Sodium 113 L* 122 L (137-145) mmol/L Chloride 83 L (98-107) mmol/L Carbon Dioxide 21 L (22-30) mmol/L BUN 6 L (9-20) mg/dL Creatinine 0.35 L (0.66-1.25) mg/dL Calcium 8.0 L (8.4-10.2) mg/dL Magnesium (1.6-2.3) mg/dL 12/15/21 12/15/21 12/16/21 Range/Units 20:15 22:20 00:23 WBC (3.8-10.6) k/uL RBC (4.30-5.90) m/uL Hgb (13.0-17.5) gm/dL Hct (39.0-53.0) % Neutrophils # (1.3-7.7) k/uL Sodium 122 L 123 L 124 L (137-145) mmol/L Chloride (98-107) mmol/L Carbon Dioxide (22-30) mmol/L BUN (9-20) mg/dL Creatinine (0.66-1.25) mg/dL Calcium (8.4-10.2) mg/dL Magnesium (1.6-2.3) mg/dL 12/16/21 12/16/21 12/16/21 Range/Units 02:45 04:34 06:37 WBC (3.8-10.6) k/uL RBC (4.30-5.90) m/uL Hgb (13.0-17.5) gm/dL Hct (39.0-53.0) % Neutrophils # (1.3-7.7) k/uL Sodium 125 L 128 L 128 L (137-145) mmol/L Chloride (98-107) mmol/L Carbon Dioxide (22-30) mmol/L BUN 6 L (9-20) mg/dL Creatinine 0.43 L (0.66-1.25) mg/dL Calcium 8.3 L (8.4-10.2) mg/dL Magnesium 2.5 H (1.6-2.3) mg/dL 12/16/21 Range/Units 06:37 WBC (3.8-10.6) k/uL RBC 3.71 L (4.30-5.90) m/uL Hgb 12.1 L (13.0-17.5) gm/dL Hct 36.6 L (39.0-53.0) % Neutrophils # (1.3-7.7) k/uL Sodium (137-145) mmol/L Chloride (98-107) mmol/L Carbon Dioxide (22-30) mmol/L BUN (9-20) mg/dL Creatinine (0.66-1.25) mg/dL Calcium (8.4-10.2) mg/dL Magnesium (1.6-2.3) mg/dL
[2021-12-16] MEDS: DEXTROSE 5% IN WATER 1,000 ML IV ONE ×2 (09:26→13:33)
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
[2021-12-16] MEDS: RIVAROXABAN 2.5 MG TABLET PO SCH ×2 (11:27→20:29)
[2021-12-16 11:54] LABS: Sodium 128 mmol/L (137-145)
[2021-12-16] MEDS ORDERED: DEXTROSE 5% IN WATER 500 ML IV SCH (12:30)
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
[2021-12-17] MEDS: ACETAMINOPHEN TAB 325 MG TAB PO PRN (00:48)
[2021-12-17] MEDS: LORazepam 2 MG/ML INJ IV PRN ×8 (01:35→22:13)
[2021-12-17] MEDS: DEXTROSE 5% IN WATER 1,000 ML IV SCH ×6 (01:36→23:26)
[2021-12-17] MEDS ORDERED: MORPHINE SULFATE 4 MG/ML SYRINGE IVP STA (04:55)
[2021-12-17 05:11] LABS: African American GFR (CKD) >90 (>60 ml/min/1.73 sqM); Anion Gap 5 mmol/L; Blood Urea Nitrogen 8 mg/dL (9-20); Calcium 8.2 mg/dL (8.4-10.2); Carbon Dioxide 25 mmol/L (22-30); Chloride 93 mmol/L (98-107); Glucose 146 mg/dL (74-99); Non-African American GFR(CKD) >90 (>60 ml/min/1.73 sqM); Potassium 3.5 mmol/L (3.5-5.1); Sodium 123 mmol/L (137-145)
[2021-12-17] MEDS: Buprenorphine Hcl [Subutex] 8 MG Tab.Subl SUBLINGUAL SCH ×3 (05:58→19:11)
[2021-12-17] MEDS: THIAMINE 100 MG TAB PO SCH ×2 (06:27→17:53)
[2021-12-17] MEDS: GABAPENTIN 300 MG CAP PO SCH ×3 (06:28→17:53)
[2021-12-17 07:33] LABS: African American GFR (CKD) >90 (>60 ml/min/1.73 sqM); Anion Gap 6 mmol/L; Blood Urea Nitrogen 6 mg/dL (9-20); Calcium 8.2 mg/dL (8.4-10.2); Carbon Dioxide 23 mmol/L (22-30); Chloride 97 mmol/L (98-107); Glucose 132 mg/dL (74-99); Non-African American GFR(CKD) >90 (>60 ml/min/1.73 sqM); Potassium 3.6 mmol/L (3.5-5.1); Sodium 126 mmol/L (137-145)
[2021-12-17] MEDS ORDERED: POTASSIUM CHLORIDE ER 20 MEQ TAB.ER PO STA (08:17)
--- NOTE | 2021-12-17 09:29 | P.PN ---
Subjective Patient is seen in follow-up for hyponatremia. Patient is maintained on D5W and has also received 2 doses of IV DDAVP. Sodium level is holding fairly stable. 126 this morning. Patient is sleeping. Difficult to arouse. Vital signs are stable. General: Sleeping. HEENT: Head exam is unremarkable. LUNGS: Breath sounds decreased. HEART: Rate and Rhythm are regular. ABDOMEN: Soft, no distention. EXTREMITITES: No edema. Objective - Vital Signs Vital signs: Vital Signs Temp 98.5 F 12/17/21 04:00 Pulse 81 12/17/21 04:00 Resp 18 12/17/21 04:00 BP 118/70 12/17/21 04:00 Pulse Ox 99 12/17/21 04:00 Intake & Output 12/16/21 12/17/21 12/17/21 18:59 06:59 18:59 Intake Total 600 220 360 Output Total 575 1400 Balance 25 -1180 360 Weight 60 kg Intake: Oral 600 220 360 Output: Urine 575 1400 Other: Voiding Method Urinal Urinal # Bowel Movements 1 - Labs CBC & Chem 7: 12/16/21 06:37 12/17/21 06:53 Labs: Abnormal Lab Results - Last 24 Hours (Table) 12/16/21 12/16/21 12/16/21 Range/Units 10:53 10:59 14:42 Sodium 128 L 128 L (137-145) mmol/L Chloride (98-107) mmol/L BUN (9-20) mg/dL Creatinine (0.66-1.25) mg/dL Glucose (74-99) mg/dL Osmolality 264 L (280-301) mosm/kg Calcium (8.4-10.2) mg/dL Ur Random Sodium 29 L (40-220) mmol/L 12/16/21 12/16/21 12/16/21 Range/Units 17:26 19:43 22:39 Sodium 124 L 123 L 124 L (137-145) mmol/L Chloride (98-107) mmol/L BUN (9-20) mg/dL Creatinine (0.66-1.25) mg/dL Glucose (74-99) mg/dL Osmolality (280-301) mosm/kg Calcium (8.4-10.2) mg/dL Ur Random Sodium (40-220) mmol/L 0412/17/21 12/17/21 Range/Units 00:26 03:35 05:21 Sodium 123 L 123 L 124 L (137-145) mmol/L Chloride 93 L (98-107) mmol/L BUN 8 L (9-20) mg/dL Creatinine 0.33 L (0.66-1.25) mg/dL Glucose 146 H (74-99) mg/dL Osmolality (280-301) mosm/kg Calcium 8.2 L (8.4-10.2) mg/dL Ur Random Sodium (40-220) mmol/L 12/17/21 Range/Units 06:53 Sodium 126 L (137-145) mmol/L Chloride 97 L (98-107) mmol/L BUN 6 L (9-20) mg/dL Creatinine 0.34 L (0.66-1.25) mg/dL Glucose 132 H (74-99) mg/dL Osmolality (280-301) mosm/kg Calcium 8.2 L (8.4-10.2) mg/dL Ur Random Sodium (40-220) mmol/L Assessment and Plan Plan: Assessment: 1. Hyponatremia, hypovolemic from nausea and vomiting as well as component of beer potomania. Sodium level corrected rapidly with 2 L normal saline bolus which she received on admission. Patient has received D5W as well as DDAVP. Urine sodium 29 and urine osmolality 208. TSH normal. This is likely acute hyp onatremia as patient's sodium level on 12/12/2021 was 132 and he was discharged from the hospital on 12/13/2021. He was readmitted on 12/15/2021 with sodium level of 113. 2. Alcohol abuse. 3. Hypokalemia from poor intake. Plan: Increase D5W to 200 mL an hour. Repeat sodium level at noon. Replace potassium.
[2021-12-17] MEDS: RIVAROXABAN 2.5 MG TABLET PO SCH ×2 (09:34→20:02)
[2021-12-17] MEDS: NICOTINE 14MG/24HR PATCH TRANSDERM SCH (09:34)
--- NOTE | 2021-12-17 12:24 | P.PN ---
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 He presented to the emergency department with a chief complaint of nausea and vomiting after reported binge drinking 48 hours. Patient underwent recent hospitalization 12/11/21 through 12/13/21 secondary to EtOH intoxication with withdrawal and chest pain. Patient was detoxed and underwent full cardiac evaluation and was discharged home on 12/13/21. Reports after discharge he drank an excessive amount of alcohol and became significantly ill with projectile vomiting yesterday evening and continuing today. Patient reports last drinking alcohol yesterday evening. In the emergency department, patient underwent full evaluation. EKG showing normal sinus rhythm at 88 bpm with no noted T-wave or ST abnormalities. CBC revealing mild leukocytosis with WBC count of 12.1 and mild anemia with hemoglobin of 12.4 otherwise normal findings. CMP revealing severe hyponatremia with sodium of 113 and metabolic alkalosis with chloride 83, carbon dioxide 21, an anion gap of 9. Serum Alcohol level of 157. Patient was admitted under our services with consultation to pharmaceutical scientist for further evaluation. 12/17/21: Patient seen and examined today. He is complaining of some generalized pain. He denies any nausea vomiting fever or chills. His sodium has improved. Discussed with patient regarding his home Suboxone. Patient advised to bring medication from home so we can continue. Objective - Vital Signs Vital signs: Vital Signs Temp 98.5 F 12/17/21 04:00 Pulse 81 12/17/21 04:00 Resp 18 12/17/21 04:00 BP 118/70 12/17/21 04:00 Pulse Ox 99 12/17/21 04:00 Intake & Output 12/16/21 12/17/21 12/17/21 18:59 06:59 18:59 Intake Total 600 220 360 Output Total 575 1400 1325 Balance 25 -1180 -965 Weight 60 kg Intake: Oral 600 220 360 Output: Urine 575 1400 1325 Other: Voiding Method Urinal Urinal # Bowel Movements 1 - Constitutional General appearance: Present: cooperative - EENT Eyes: Present: PERRLA - Respiratory Respiratory: bilateral: CTA - Cardiovascular Rhythm: regular Heart sounds: normal: S1, S2 - Gastrointestinal General gastrointestinal: Present: normal bowel sounds, soft - Neurologic Neurologic: Present: CNII-XII intact - Psychiatric Psychiatric: Present: A&O x's 3 - Labs CBC & Chem 7: 12/16/21 06:37 12/17/21 06:53 Labs: Abnormal Lab Results - Last 24 Hours (Table) 12/16/21 12/16/21 12/16/21 Range/Units 10:53 10:59 14:42 Sodium 128 L (137-145) mmol/L Chloride (98-107) mmol/L BUN (9-20) mg/dL Creatinine (0.66-1.25) mg/dL Glucose (74-99) mg/dL Osmolality 264 L (280-301) mosm/kg Calcium (8.4-10.2) mg/dL Ur Random Sodium 29 L (40-220) mmol/L 12/16/21 12/16/21 12/16/21 Range/Units 17:26 19:43 22:39 Sodium 124 L 123 L 124 L (137-145) mmol/L Chloride (98-107) mmol/L BUN (9-20) mg/dL Creatinine (0.66-1.25) mg/dL Glucose (74-99) mg/dL Osmolality (280-301) mosm/kg Calcium (8.4-10.2) mg/dL Ur Random Sodium (40-220) mmol/L 12/17/21 12/17/21 12/17/21 Range/Units 00:26 03:35 05:21 Sodium 123 L 123 L 124 L (137-145) mmol/L Chloride 93 L (98-107) mmol/L BUN 8 L (9-20) mg/dL Creatinine 0.33 L (0.66-1.25) mg/dL Glucose 146 H (74-99) mg/dL Osmolality (280-301) mosm/kg Calcium 8.2 L (8.4-10.2) mg/dL Ur Random Sodium (40-220) mmol/L 12/17/21 Range/Units 06:53 Sodium 126 L (137-145) mmol/L Chloride 97 L (98-107) mmol/L BUN 6 L (9-20) mg/dL Creatinine 0.34 L (0.66-1.25) mg/dL Glucose 132 H (74-99) mg/dL Osmolality (280-301) mosm/kg Calcium 8.2 L (8.4-10.2) mg/dL Ur Random Sodium (40-220) mmol/L Assessment and Plan (1) Acute hyponatremia Current Visit: Yes Status: Acute Code(s): E87.1 - HYPO-OSMOLALITY AND HYPONATREMIA SNOMED Code(s): 0433579 Plan: Hyponatremia, beer potomania. Intractable nausea and vomiting resulting from binge drinking, resolved Metabolic alkalosis secondary to above, resolved -Sodium POA 113. Hyponatremia likely acute hyponatremia secondary to binge drinking followed by intractable vomiting. -Nephrology currently following. Patient is on D5W for slow correction of sodium. -Patient's sodium level today 126 Alcohol abuse Alcohol withdrawal -CIWA Protocol with symptom triggered medication management with benzo diazepines. -Thiamine 100 mg twice a day -Multivitamin daily -Folate 1 mg daily -Seizure, fall, aspiration, and elopement precautions in place. -Continued close monitoring of electrolytes and replace as needed. -Telemetry monitoring. Hypomagnesemia -Replace and monitor Chronic pain -Continue with home medication of Buprorpherine. Discussed with patient regarding having family member bring them from home. May consider treatment in the hospital with morphine if patient starts showing signs of withdrawal History of DVTs -Continue oral anticoagulant with Xarelto. Nicotine dependence -Educated and encouraged patient on the benefits of smoking cessation and the risks of continued use. -Nicotine patch. CODE STATUS: Full code DVT prophylaxis: Xarelto Discussed with: patient and RN Anticipated discharge date: Clinical course to determine Anticipated discharge place: Home
[2021-12-17 21:38] VITALS: TEMP 98.1
[2021-12-17] MEDS ORDERED: chlordiazePOXIDE 25 MG CAP PO STA (23:13)
[2021-12-18] MEDS: LORazepam 2 MG/ML INJ IV PRN ×3 (01:57→08:58)
[2021-12-18 04:16] VITALS: RESP 20
[2021-12-18] MEDS: GABAPENTIN 300 MG CAP PO SCH (06:34)
[2021-12-18] MEDS: Buprenorphine Hcl [Subutex] 8 MG Tab.Subl SUBLINGUAL SCH (06:35)
[2021-12-18] MEDS: THIAMINE 100 MG TAB PO SCH (06:35)
[2021-12-18] MEDS: RIVAROXABAN 2.5 MG TABLET PO SCH (08:19)
[2021-12-18 08:26] VITALS: BP 102/71; PULSE 97
[2021-12-18] MEDS: NICOTINE 14MG/24HR PATCH TRANSDERM SCH (08:31)
[2021-12-18 09:13] LABS: African American GFR (CKD) >90 (>60 ml/min/1.73 sqM); Anion Gap 11 mmol/L; Blood Urea Nitrogen 4 mg/dL (9-20); Calcium 9.1 mg/dL (8.4-10.2); Carbon Dioxide 22 mmol/L (22-30); Chloride 99 mmol/L (98-107); Glucose 148 mg/dL (74-99); Magnesium 1.8 mg/dL (1.6-2.3); Non-African American GFR(CKD) >90 (>60 ml/min/1.73 sqM); Potassium 4.1 mmol/L (3.5-5.1); Sodium 132 mmol/L (137-145)
--- NOTE | 2021-12-18 16:29 | P.DS ---
Providers Date of admission: 12/15/21 17:52 Expected date of discharge: 12/18/21 Attending physician: Batsheva Cintron, Consults: 12/15/21 17:49 Consult Physician Routine Consulting Provider: Farhat Rai Consult Reason/Comments: hyponatremia, acute ETOh intoxication Do you want consulting provider notified?: Already Contacted 12/15/21 19:48 Consult Physician Urgent Consulting Provider: Frank Mcpherson Consult Reason/Comments: severe hyponatremia Do you want consulting provider notified?: Already Contacted Primary care physician: Basil Srinivasan MD Hospital Course: Patient is a very pleasant 56-year-old male with a past medical history of chronic pain on Buprenorphine, alcohol abuse, anxiety, 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 He presented to the emergency department with a chief complaint of nausea and vomiting after reported binge drinking 48 hours. Patient underwent recent hospitalization 12/11/21 through 12/13/21 secondary to EtOH intoxication with withdrawal and chest pain. Patient was detoxed and underwent full cardiac evaluation and was discharged home on 12/13/21. Reports after discharge he drank an excessive amount of alcohol and became significantly ill with projectile vomiting yesterday evening and continuing today. Patient reports last drinking alcohol yesterday evening. In the emergency department, patient underwent full evaluation. EKG showing normal sinus rhythm at 88 bpm with no noted T-wave or ST abnormalities. CBC revealing mild leukocytosis with WBC count of 12.1 and mild anemia with hemoglobin of 12.4 otherwise normal findings. CMP revealing severe hyponatremia with sodium of 113 and metabolic alkalosis with chloride 83, carbon dioxide 21, an anion gap of 9. Serum Alcohol level of 157. Patient was admitted under our services with consultation to abnormal psychology teacher for further evaluation. Nephrology was consulted with regard to his severe hyponatremia. He was given a dose of DDAVP. Nephrology recommended D5W for slow correction of sodium. Pulmonology/ICU was also consulted in this patient's care. His sodium improved to 132 at the time of discharge. He was also placed on CIWA protocol and given Ativan as needed. His withdrawal symptoms improved. Patient was seen and examined on 12/18/2021. Apparently, he reports feeling disrespected by overnight nursing staff and was requesting to leave AGAINST MEDICAL ADVICE. He was prescribed 3 days of Ativan as needed as he reported the need to want to quit drinking alcohol. He was advised to not mix Ativan with alcohol as it could lead to respiratory depression and . Patient verbalized understanding of the plan. This complex discharge took about 45 minutes to complete. General: [non toxic], [no distress], [cachectic] Derm: [warm], [dry] Head: [atraumatic], [normocephalic], [symmetric] Eyes: [EOMI], [no lid lag], [anicteric sclera] Mouth: [no lip lesion], [mucus membranes moist] Cardiovascular: [S1S2 reg], [no murmur] Lungs: [Decreased breath sounds bilateral], [no rhonchi, no rales] , [no accessory muscle use] Abdominal: [soft], [ nontender to palpation], [no guarding], [no appreciable organomegaly] Ext: [no gross muscle atrophy], [no edema], [no contractures] Neuro: [no focal neuro deficits] Psych: [Alert], [oriented], [appropriate affect] Discharge diagnosis: Hyponatremia, beer potomania, improving Intractable nausea and vomiting resulting from binge drinking, resolved Metabolic alkalosis secondary to above, resolved Alcohol withdrawal, improving Hypomagnesemia History of DVTs Chronic pain Nicotine dependence Pertinent Studies: Chest x-ray, EKG Patient Condition at Discharge: Stable Plan - Discharge Summary Discharge Rx Participant: Yes New Discharge Prescriptions: New LORazepam [Ativan] 1 mg PO TID PRN 3 Days #9 tab PRN Reason: Alcohol Withdrawal Continue buprenorphine HCL [Subutex] 8 mg SL AC-TID Gabapentin 600 mg PO TID-W/MEALS Butalb/APAP/Caff 50-325-40Mg [Fioricet 50-325-40] 1 tab PO Q4-6H PRN PRN Reason: Migraine Headache Rivaroxaban [Xarelto] 2.5 mg PO BID Thiamine HCl [Vitamin B-1] 100 mg PO BID-W/MEALS Baclofen [Lioresal] 20 mg PO ACHS Discontinued clonazePAM [KlonoPIN] 1 mg PO AC-TID Discharge Medication List buprenorphine HCL [Subutex] 8 mg SL AC-TID 04/27/19 [History] Baclofen [Lioresal] 20 mg PO ACHS 12/15/21 [History] Butalb/APAP/Caff 50-325-40Mg [Fioricet 50-325-40] 1 tab PO Q4-6H PRN 12/15/21 [History] Gabapentin 600 mg PO TID-W/MEALS 12/15/21 [History] Rivaroxaban [Xarelto] 2.5 mg PO BID 12/15/21 [History] Thiamine HCl [Vitamin B-1] 100 mg PO BID-W/MEALS 12/15/21 [History] LORazepam [Ativan] 1 mg PO TID PRN 3 Days #9 tab 12/18/21 [Rx] Follow up Appointment(s)/Referral(s): Basil Srinivasan MD [Primary Care Provider] - 1-2 days (call and make appointment to see Dr. Srinivasan in 1-2 days ) Patient Instructions/Handouts: Hyponatremia (DC) Activity/Diet/Wound Care/Special Instructions: Diet: Regular Follow up with your PCP within 3 days of discharge. You are being prescribed Ativan as needed for withdrawal symptoms. Please do not use the Ativan if you start to drink again. Combination of Ativan and alcohol can lead to sudden and respiratory depression. Please take all home medications as prescribed. Come back to the ED or call 911 for worsening chest pain, shortness of breath, palpitations, intractable nausea and vomiting, worsening of alcohol withdrawal symptoms. Discharge Disposition: HOME SELF-CARE
== END 2021-12-18 11:15 | disposition home or self-care (01) | DRG 641 ==
LOC: EC 12:23 → 3SCARD 17:52
PROVIDERS: ADMIT Internal Medicine; ATTEND Internal Medicine
DX: E87.1 Hypo-osmolality and hyponatremia (principal); F10.239 Alcohol dependence with withdrawal, unspecified; F20.0 Paranoid schizophrenia; E87.3 Alkalosis; D64.9 Anemia, unspecified; D72.829 Elevated white blood cell count, unspecified; E86.1 Hypovolemia; E87.6 Hypokalemia; E87.8 Other disorders of electrolyte and fluid balance, not elsewhere classified; F10.229 Alcohol dependence with intoxication, unspecified; E83.41 Hypermagnesemia; Z71.6 Tobacco abuse counseling; F17.210 Nicotine dependence, cigarettes, uncomplicated; F31.9 Bipolar disorder, unspecified; F90.9 Attention-deficit hyperactivity disorder, unspecified type; G62.9 Polyneuropathy, unspecified; G89.29 Other chronic pain; R11.2 Nausea with vomiting, unspecified; J44.9 Chronic obstructive pulmonary disease, unspecified; M41.9 Scoliosis, unspecified; K58.9 Irritable bowel syndrome, unspecified; Y90.6 Blood alcohol level of 120-199 mg/100 ml; Z20.822 Contact with and (suspected) exposure to COVID-19; Z28.310 Unvaccinated for COVID-19; Z79.01 Long term (current) use of anticoagulants; Z80.3 Family history of malignant neoplasm of breast; Z82.41 Family history of sudden cardiac death; Z82.49 Family history of ischemic heart disease and other diseases of the circulatory system; Z86.718 Personal history of other venous thrombosis and embolism; Z98.890 Other specified postprocedural states; Z86.14 Personal history of Methicillin resistant Staphylococcus aureus infection; Z87.828 Personal history of other (healed) physical injury and trauma; Z88.6 Allergy status to analgesic agent; Z91.013 Allergy to seafood
CPT/HCPCS: 36415; 71046; 80048; 80053; 80320; 82150; 83690; 83735; 83930; 83935; 84295; 84300; 84443; 84484; 85025; 85610; 85730; 87502; 87635; 93005; 96372; 96374; 96375; 99291

== ENCOUNTER 2021-12-29 06:20 | Observation (INO) | payer MEDICARE, OTHER ==
[2021-12-29] MEDS ORDERED: LORazepam 1 MG TAB PO STA (06:22)
[2021-12-29] MEDS ORDERED: THIAMINE 100 MG/ML 2 ML VIAL IM STA (06:23)
[2021-12-29] MEDS ORDERED: LORazepam 2 MG/ML INJ IV PRN ×4 (06:23)
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
[2021-12-29] MEDS ORDERED: SODIUM CHLORIDE 0.9% 1,000 ML with THIAMINE 100 MG, FOLIC ACID 1 MG IV ONE ×3 (07:00)
[2021-12-29 07:28] LABS: ALT 28 U/L (4-49); AST 71 U/L (17-59); African American GFR (CKD) >90 (>60 ml/min/1.73 sqM); Albumin 3.6 g/dL (3.5-5.0); Alkaline Phosphatase 79 U/L (38-126); Anion Gap 13 mmol/L; Blood Urea Nitrogen 8 mg/dL (9-20); Calcium 7.9 mg/dL (8.4-10.2); Carbon Dioxide 24 mmol/L (22-30); Chloride 90 mmol/L (98-107); Glucose 80 mg/dL (74-99); Magnesium 1.7 mg/dL (1.6-2.3); Non-African American GFR(CKD) >90 (>60 ml/min/1.73 sqM); Phosphorus 2.7 mg/dL (2.5-4.5); Potassium 4.5 mmol/L (3.5-5.1); Sodium 127 mmol/L (137-145); Total Bilirubin 0.3 mg/dL (0.2-1.3); Total Protein 6.5 g/dL (6.3-8.2)
[2021-12-29 07:35] LABS: Alcohol 247 mg/dL
[2021-12-29 07:36] LABS: Basophils % (A) 0 %; Eosinophils % (A) 0 %; HCT 34.9 % (39.0-53.0); HGB 11.3 gm/dL (13.0-17.5); Lymphocytes # (A) 1.6 k/uL (1.0-4.8); Lymphocytes % (A) 17 %; MCH 32.6 pg (25.0-35.0); MCHC 32.5 g/dL (31.0-37.0); MCV 100.4 fL (80.0-100.0); Macrocytosis Slight; Mean Platelet Volume 6.9; Monocytes # (A) 0.3 k/uL (0-1.0); Monocytes % (A) 4 %; Neutrophils # (A) 7.5 k/uL (1.3-7.7); Neutrophils % (A) 78 %; RBC 3.48 m/uL (4.30-5.90); RDW 14.2 % (11.5-15.5); WBC 9.6 k/uL (3.8-10.6)
[2021-12-29 07:46] LABS: Platelet Count 562 k/uL (150-450)
[2021-12-29] MEDS ORDERED: NALOXONE 0.4 MG/ML 1 ML VIAL IV PRN (07:50)
[2021-12-29] MEDS ORDERED: HYDROcodone/APAP 5-325MG 1 EACH TAB PO PRN (07:50)
[2021-12-29] MEDS ORDERED: ACETAMINOPHEN TAB 325 MG TAB PO PRN (07:50)
[2021-12-29 08:00] LABS: Amphetamine Screen,Urine Not Detected (NotDetected); Appearance,Urine Clear (Clear); Barbiturate Screen,Urine Detected (NotDetected); Benzodiazepines Screen,Urine Not Detected (NotDetected); Bilirubin,Urine Negative (Negative); Blood,Urine Negative (Negative); Cocaine Screen,Urine Not Detected (NotDetected); Color,Urine Yellow; Glucose,Urine (UA) Negative (Negative); Ketones,Urine Negative (Negative); Leukocyte Esterase,Urine Negative (Negative); Methadone Screen, Urine Not Detected (NotDetected); Nitrite,Urine Negative (Negative); Opiate Screen,Urine Not Detected (NotDetected); Oxycodone Screen, Urine Not Detected (NotDetected); PH, Urine 7.5 (5.0-8.0); Phencyclidine Screen,Urine Not Detected (NotDetected); Protein,Urine Negative (Negative); Specific Gravity,Urine 1.013 (1.001-1.035); Tricyclic Antidepressant,Urine Not Detected (NotDetected); Urn Cannabinoid Scrn Not Detected (NotDetected); Urobilinogen,Urine <2.0 mg/dL (<2.0)
[2021-12-29] MEDS ORDERED: ONDANSETRON ODT 4 MG TAB PO PRN (08:03)
[2021-12-29] MEDS ORDERED: SODIUM CHLORIDE 0.9% 1,000 ML IV ONE (09:29)
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
[2021-12-29 11:08] LABS: African American GFR (CKD) >90 (>60 ml/min/1.73 sqM); Anion Gap 10 mmol/L; Blood Urea Nitrogen 8 mg/dL (9-20); Carbon Dioxide 26 mmol/L (22-30); Chloride 97 mmol/L (98-107); Glucose 58 mg/dL (74-99); Non-African American GFR(CKD) >90 (>60 ml/min/1.73 sqM); Potassium 4.4 mmol/L (3.5-5.1); Sodium 133 mmol/L (137-145)
[2021-12-29] MEDS: RIVAROXABAN 2.5 MG TABLET PO SCH ×2 (11:41→13:16)
[2021-12-29 12:11] VITALS: RESP 18
[2021-12-29] MEDS: MAGNESIUM SULFATE-D5W PMX 1 GM in DEXTROSE/WATER 1 100ML.BAG IVPB SCH ×2 (12:11→13:55)
[2021-12-29] MEDS ORDERED: NON FORMULARY DRUG (Buprenorphine Hcl [Subutex] 8 MG Tab.Subl) SUBLINGUAL SCH (12:30)
--- NOTE | 2021-12-29 15:22 | P.DS ---
Providers Date of admission: 12/29/21 07:56 Expected date of discharge: 12/29/21 Attending physician: Jackie Staples MD Primary care physician: Stated None Hospital Course: Discharge Diagnosis: Alcohol abuse, chronic daily alcohol abuse with recurrent episodes of binge drinking behaviors, advised cessation of all alcohol use and recommended inpatient drug and alcohol rehabilitation program in which patient is declining at this time. Hyponatremia, hyponatremia secondary to chronic alcohol abuse and continued binge drinking behaviors, improved with IV fluid hydration Hypomagnesemia, replaced Chronic pain, Continue daily home medication regimen with Buprenorphine as prescribed by pain management provider. History of DVTs, Continue oral anticoagulant with Xarelto. 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 He presented to the emergency department with a chief complaint of "feeling unwell" with alcohol intoxication and nausea with concerns of dehydration secondary to reports of vomiting. Patient has had multiple admissions to the hospital for alcohol intoxication secondary to chronic alcohol abuse and binge drinking behaviors reportedly drinking a minimum of 1 pint of vodka and beers daily. Patient denied having any headache, lightheadedness, dizziness, changes in vision or hearing, chest pain or palpitations, shortness of breath, abdominal pain, or experiencing any numbness/tingling/weakness in his extremities. Patient was seen and fully evaluated in the emergency department he was found to have anemia with hemoglobin of 11.3 which is at baseline and thrombocytosis with platelet count of 562 likely secondary to dehydration as patient has had recurrent episodes of thrombocytosis throughout admissions. Magnesium also noted to be low at 1.7. Patient also noted to have hyponatremia with sodium of 127 and urine drug screen positive for barbiturates. Serum alcohol level was 247. Patient admitted under our services to observation for detox. Patient underwent detox from alcohol and is clinically sober at this time. Patient has required 1 mg of Ativan throughout hospitalization and currently resting comfortably showing no signs of withdrawal. Patient is medically stable at this time for discharge and again had long discussion with patient regarding possibility of inpatient drug and alcohol rehabilitation program in which patient continues to decline. Patient states that he understands his drinking is serious but states he is not ready to quit at this time. Patient medically stable for discharge home and again strongly advised to stop drinking alcohol. Physical exam: Vital signs reviewed and stable. General: Nontoxic, no distress and appears stated age. Derm: Skin warm and dry, normal coloration for ethnicity. Head: Atraumatic, normocephalic and symmetric. Eyes: EOMs intact, no lid lag, and anicteric sclera Mouth: no lip lesions, mucus membranes moist Cardiovascular: regular rate and rhythm with normal S1S2, no murmur, positive posterior tibial pulses bilaterally, and cap refill < 2 seconds. Lungs: Respirations even, regular, and unlabored on room air. Lungs CTA bilaterally, no rhonchi, no rales, no wheezing, and no accessory muscle usage. Abdominal: soft, nontender to palpation, no guarding, no appreciable organomegaly Ext: ROM intact. No gross muscle atrophy, no edema, no contractures Neuro: Speech clear, face symmetrical and CN II-XII grossly intact with no noted focal neuro deficits Psych: Alert and oriented to person, place, time, and situation. Appropriate and pleasant affect. A total of 31 minutes of time were spent preparing this complex discharge summary. Pt was discharged on 12/29/21 at 2:38 PM. I reviewed the documentation as provided by the BOBBY above, who is the original author of this note. I agree with the documented assessment and plan, with the following changes: none Patient Condition at Discharge: Stable Plan - Discharge Summary Discharge Rx Participant: No New Discharge Prescriptions: New Multivitamins, Thera [Multivitamin (formulary)] 1 each PO DAILY tab Thiamine [Vitamin B-1] 100 mg PO BID-W/MEALS tab Continue buprenorphine HCL [Subutex] 8 mg SL AC-TID Gabapentin 600 mg PO TID-W/MEALS Butalb/APAP/Caff 50-325-40Mg [Fioricet 50-325-40] 1 tab PO Q4H PRN PRN Reason: Migraine Headache Rivaroxaban [Xarelto] 2.5 mg PO BID Thiamine HCl [Vitamin B-1] 100 mg PO BID-W/MEALS Baclofen [Lioresal] 20 mg PO ACHS Discontinued clonazePAM 1 mg PO TID Discharge Medication List buprenorphine HCL [Subutex] 8 mg SL AC-TID 04/27/19 [History] Baclofen [Lioresal] 20 mg PO ACHS 12/15/21 [History] Butalb/APAP/Caff 50-325-40Mg [Fioricet 50-325-40] 1 tab PO Q4H PRN 12/15/21 [History] Gabapentin 600 mg PO TID-W/MEALS 12/15/21 [History] Rivaroxaban [Xarelto] 2.5 mg PO BID 12/15/21 [History] Thiamine HCl [Vitamin B-1] 100 mg PO BID-W/MEALS 12/15/21 [History] Multivitamins, Thera [Multivitamin (formulary)] 1 each PO DAILY tab 12/29/21 [Rx] Thiamine [Vitamin B-1] 100 mg PO BID-W/MEALS tab 12/29/21 [Rx] Follow up Appointment(s)/Referral(s): Basil Srinivasan MD [REFERRING] - 1-2 Days Activity/Diet/Wound Care/Special Instructions: Activity: As tolerated. Take breaks as needed. Diet: Regular diet, recommend total cessation of all alcohol use. Special Instructions: Take all of your medications as directed and remember to keep all of your doctor's appointments and follow-up as needed. As we have discussed multiple times in the past, I strongly encourage you to go to an inpatient drug and alcohol rehabilitation facility and to stop drinking alcohol. Continued consumption of alcohol is only going to lead to further health comorbidities up to and including . Thank you for allowing us to participate in your care, it was truly a pleasure having you for our patient!!! Discharge Disposition: HOME SELF-CARE
[2021-12-29 16:21] VITALS: BP 139/79; PULSE 78; TEMP 98.2
[2021-12-29] MEDS ORDERED: THIAMINE 100 MG TAB PO SCH (17:30)
[2021-12-30] MEDS ORDERED: FOLIC ACID 1 MG TAB PO SCH (09:00)
[2021-12-30] MEDS ORDERED: MULTIVITAMINS, THERA 1 EACH TAB PO SCH (09:00)
== END 2021-12-29 16:10 | disposition home or self-care (01) ==
LOC: EC 06:20 → 6NMEDSUR 07:56
PROVIDERS: ADMIT Internal Medicine; ATTEND Internal Medicine
DX: F10.129 Alcohol abuse with intoxication, unspecified (principal); Y90.8 Blood alcohol level of 240 mg/100 ml or more; E87.1 Hypo-osmolality and hyponatremia; E83.42 Hypomagnesemia; G89.29 Other chronic pain; M54.9 Dorsalgia, unspecified; F17.200 Nicotine dependence, unspecified, uncomplicated; J44.9 Chronic obstructive pulmonary disease, unspecified; G62.9 Polyneuropathy, unspecified; M54.50 Low back pain, unspecified; R56.9 Unspecified convulsions; K58.9 Irritable bowel syndrome, unspecified; F31.9 Bipolar disorder, unspecified; F90.9 Attention-deficit hyperactivity disorder, unspecified type; F41.9 Anxiety disorder, unspecified; F20.0 Paranoid schizophrenia; D64.9 Anemia, unspecified; E86.0 Dehydration; D75.839 Thrombocytosis, unspecified; Z86.14 Personal history of Methicillin resistant Staphylococcus aureus infection; Z87.01 Personal history of pneumonia (recurrent); Z86.718 Personal history of other venous thrombosis and embolism; Z79.01 Long term (current) use of anticoagulants; Z79.899 Other long term (current) drug therapy; Z88.8 Allergy status to other drugs, medicaments and biological substances; Z91.013 Allergy to seafood; Z71.6 Tobacco abuse counseling; Z71.9 Counseling, unspecified; Z71.41 Alcohol abuse counseling and surveillance of alcoholic; Z82.49 Family history of ischemic heart disease and other diseases of the circulatory system; Z81.1 Family history of alcohol abuse and dependence; Z82.41 Family history of sudden cardiac death; Z80.3 Family history of malignant neoplasm of breast
CPT/HCPCS: 82075; 96361; 96365; 96366; 96372; 96375; 99285; 36415; 80053; 80048; 83735; 84100; 85025; 81003; 80306; G0378; G0480; J2060; J3411; J3475; 80320

== ENCOUNTER 2022-01-01 06:56 | Observation (INO) | payer MEDICARE, OTHER ==
[2022-01-01] MEDS ORDERED: DIPH,PERTUS(ACELL)TETVAC-LF 0.5 ML VIAL IM ONE (07:09)
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
[2022-01-01 07:36] LABS: Basophils # (A) 0.1 k/uL (0-0.2); Basophils % (A) 1 %; Eosinophils # (A) 0.1 k/uL (0-0.7); Eosinophils % (A) 2 %; HCT 39.7 % (39.0-53.0); HGB 12.6 gm/dL (13.0-17.5); Lymphocytes # (A) 1.8 k/uL (1.0-4.8); Lymphocytes % (A) 23 %; MCH 32.3 pg (25.0-35.0); MCHC 31.9 g/dL (31.0-37.0); MCV 101.4 fL (80.0-100.0); Macrocytosis Slight; Mean Platelet Volume 6.8; Monocytes # (A) 0.4 k/uL (0-1.0); Monocytes % (A) 5 %; Neutrophils # (A) 5.5 k/uL (1.3-7.7); Neutrophils % (A) 68 %; Platelet Count 540 k/uL (150-450); RBC 3.91 m/uL (4.30-5.90); RDW 13.6 % (11.5-15.5); WBC 8.1 k/uL (3.8-10.6)
[2022-01-01 08:22] LABS: Appearance,Urine Clear (Clear); Bilirubin,Urine Negative (Negative); Blood,Urine Negative (Negative); Color,Urine Light Yellow; Glucose,Urine (UA) Negative (Negative); Ketones,Urine Negative (Negative); Leukocyte Esterase,Urine Negative (Negative); Nitrite,Urine Negative (Negative); Protein,Urine Negative (Negative); Specific Gravity,Urine 1.005 (1.001-1.035); Urobilinogen,Urine <2.0 mg/dL (<2.0)
[2022-01-01 08:23] LABS: ALT 47 U/L (4-49); AST 72 U/L (17-59); African American GFR (CKD) >90 (>60 ml/min/1.73 sqM); Albumin 3.8 g/dL (3.5-5.0); Alkaline Phosphatase 83 U/L (38-126); Anion Gap 14 mmol/L; Blood Urea Nitrogen 8 mg/dL (9-20); Calcium 8.2 mg/dL (8.4-10.2); Carbon Dioxide 23 mmol/L (22-30); Chloride 97 mmol/L (98-107); Glucose 93 mg/dL (74-99); Non-African American GFR(CKD) >90 (>60 ml/min/1.73 sqM); Sodium 134 mmol/L (137-145); Total Bilirubin 0.3 mg/dL (0.2-1.3); Total Protein 6.5 g/dL (6.3-8.2)
[2022-01-01 08:34] LABS: Amphetamine Screen,Urine Not Detected (NotDetected); Barbiturate Screen,Urine Detected (NotDetected); Benzodiazepines Screen,Urine Not Detected (NotDetected); Cocaine Screen,Urine Not Detected (NotDetected); Methadone Screen, Urine Not Detected (NotDetected); Opiate Screen,Urine Not Detected (NotDetected); Oxycodone Screen, Urine Not Detected (NotDetected); Phencyclidine Screen,Urine Not Detected (NotDetected); Tricyclic Antidepressant,Urine Not Detected (NotDetected); Urn Cannabinoid Scrn Not Detected (NotDetected)
[2022-01-01 08:37] LABS: Alcohol 376 mg/dL
--- NOTE | 2022-01-01 08:47 | CT ---
EXAMINATION TYPE: CT brain cspine wo con DATE OF EXAM: 01/01/2022 COMPARISON: Brain 09/22/2021 HISTORY: 56-year-old male with pain after Fall CT DLP: 1282.3 mGycm Automated exposure control for dose reduction was used. Technique: Examination of the head was done in axial plane without intravenous contrast. Coronal and sagittal reconstructions performed. CT of the cervical spine was obtained in axial plane without intravenous injection of contrast mater ial. Coronal and sagittal reformatted images were obtained from the axial views for evaluation of f ractures, spinal alignment and canal. FINDINGS: Head: There is no evidence of acute intracranial hemorrhage, acute ischemic changes, mass, mass-effect, or extra-axial fluid collection. There is no effacement of cerebral sulci or basal subarachnoid cister ns. There is no hydrocephalus. There is no midline shift. Cox-white matter distinction is preserv ed. Severe mucosal thickening right maxillary sinus, moderate to severe right ethmoid air cells, moderate left ethmoid air cells. Orbits and globes intact. Mastoid air cells well pneumatized. Cervical spine: No craniocervical junction abnormality, predental space widening, or prevertebral soft tissue swellin g. Mild multilevel degenerative disc disease, greatest at C6-C7 with disc osteophyte complex probably mi ldly narrowing the spinal canal. Alignment is maintained. No acute fracture of the cervical spine. Scattered mild to moderate facet and uncovertebral joint arthropathy mid to lower cervical spine. Changes result in moderate right neuroforaminal stenosis C3-C4, mild on the left at C5-C6, and of the left at C6-C7. Some layering fluid within the posterior nasopharynx. COPD visualized upper lungs Sagittal and coronal reformatted images confirm above findings. COMBINED IMPRESSION: 1. No acute intracranial abnormality seen. 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 Consider outp atient ENT referral. 2. No acute fracture or malalignment of the cervical spine. Scattered mild to moderate spondylotic ch connor. 3. COPD.
[2022-01-01 08:48] LABS: INR 0.9 (<1.2); Partial Thromboplastin Time 24.7 sec (22.0-30.0)
[2022-01-01] MEDS ORDERED: SODIUM CHLORIDE 0.9% 1,000 ML IV ONE (09:19)
[2022-01-01] MEDS ORDERED: LORazepam 2 MG/ML INJ IV PRN (09:43)
[2022-01-01] MEDS ORDERED: THIAMINE 100 MG/ML 2 ML VIAL IM STA (09:43)
[2022-01-01] MEDS: LORazepam 2 MG/ML INJ IV PRN ×4 (10:25→21:44)
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
[2022-01-01] MEDS: THIAMINE 100 MG TAB PO SCH (17:19)
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
[2022-01-01] MEDS ORDERED: BUTALB/APAP/CAFF 50-325-40MG TAB PO PRN (18:28)
[2022-01-01] MEDS: BACLOFEN 10 MG TAB PO SCH (20:57)
[2022-01-01] MEDS: RIVAROXABAN 2.5 MG TABLET PO SCH (20:57)
[2022-01-02] MEDS: LORazepam 2 MG/ML INJ IV PRN ×4 (00:13→10:53)
[2022-01-02 03:58] VITALS: RESP 18
[2022-01-02] MEDS: GABAPENTIN 300 MG CAP PO SCH ×2 (07:12→11:33)
[2022-01-02] MEDS: THIAMINE 100 MG TAB PO SCH (07:12)
[2022-01-02] MEDS: BACLOFEN 10 MG TAB PO SCH ×2 (07:12→11:32)
[2022-01-02] MEDS: RIVAROXABAN 2.5 MG TABLET PO SCH (07:12)
[2022-01-02] MEDS ORDERED: THIAMINE 100 MG TAB PO SCH (07:30)
[2022-01-02 07:35] VITALS: BP 136/86; PULSE 92; TEMP 98.2
[2022-01-02] MEDS ORDERED: MULTIVITAMINS, THERA 1 EACH TAB PO SCH (09:00)
[2022-01-02] MEDS ORDERED: FERROUS SULFATE 325 MG TAB PO SCH (09:00)
[2022-01-02] MEDS ORDERED: NICOTINE 21MG/24HR PATCH TRANSDERM SCH (09:00)
[2022-01-02] MEDS ORDERED: FOLIC ACID 1 MG TAB PO SCH (09:00)
--- NOTE | 2022-01-02 09:37 | P.PN ---
Subjective Progress Note Date: 01/02/22 Hospital course: Patient is a 56-year-old male with a past medical history of chronic pain on buprenorphine, daily alcohol use with binge drinking behaviors, anxiety, 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 He presented to the emergency department on 01/01/22 status post fall from standing striking the right occipital region of his head. Patient was intoxicated at this time with blood alcohol level of 347. A computed tomography scan head and cervical spine was completed and negative for acute abnormalities, did reveal chronic sinus disease as discussed with patient may consider follow-up with ENT specialist. EKG completed revealing sinus bradycardia at 57 bpm with no noted T-wave or ST abnormalities. Patient was admitted under primary admitting general surgery team and we were consulted for continued medical management throughout hospitalization. Physical exam: Patient seen and fully evaluated at the bedside. Patient had noted tremors. Patient requesting a dose of Ativan to go home, patient states he just needs to be given some Ativan for the road because he only lives 2 blocks away and just needs enough to get home. Patient informed that he will not be given Ativan to go home and again strongly encouraged to go to an inpatient drug and alcohol rehabilitation program. Patient declined at this time. States that he will call his [facility] residential specialist, Zaheer, and he will arrange his own outpatient rehab because he is "Not going to [place] with all those drugies." Patient is medically clear for discharge home once cleared by primary admitting general surgery team. Patient does not want to withdraw from alcohol at this time, therefore no need for further medical detox as patient is clinically sober and openly expresses that he is going home to drink alcohol. Vital signs reviewed and stable. General: Nontoxic, no distress and appears stated age. Derm: Skin warm and dry, normal coloration for ethnicity. Head: Atraumatic, normocephalic and symmetric. Eyes: EOMs intact, no lid lag, and anicteric sclera Mouth: no lip lesions, mucus membranes moist Cardiovascular: regular rate and rhythm with normal S1S2, no murmur, positive posterior tibial pulses bilaterally, and cap refill < 2 seconds. Lungs: Respirations even, regular, and unlabored on room air. Lungs CTA bilaterally, no rhonchi, no rales, no wheezing, and no accessory muscle usage. Abdominal: soft, nontender to palpation, no guarding, no appreciable organomegaly Ext: ROM intact. No gross muscle atrophy, no edema, no contractures Neuro: Speech clear, face symmetrical and CN II-XII grossly intact with no noted focal neuro deficits Psych: Alert and oriented to person, place, time, and situation. Appropriate and pleasant affect. Assessment and Plan of Care: Fall with head injury while on anticoagulation with Xarelto -CT head and cervical spine were negative for acute process. -Patient admitted under Gen. surgery team. -Fall precautions. Alcohol abuse Alcoholic ketoacidosis, resolved after IV fluid hydration Hyponatremia, hyponatremia secondary to chronic alcohol abuse and continued binge drinking behaviors Elevated liver enzymes, likely secondary to daily chronic alcohol abuse and continued binge drinking behaviors -CIID Protocol with symptom triggered medication management with benzodiazepines. -1 L bolus of 0.9% normal saline followed by Banana bag 1 dose and continuous IV hydration. -Thiamine 100 mg twice a day -Multivitamin daily -Folate 1 mg daily -Seizure, fall, aspiration, and elopement precautions in place. -Continued close monitoring of electrolytes and replace as needed. -Telemetry monitoring. Chronic pain -Continue daily home medication regimen with Buprenorphine to avoid further withdrawal. History of DVTs -Continue oral anticoagulant with Xarelto. Nicotine dependence -Educated and encouraged patient on the benefits of smoking cessation and the risks of continued use. -Nicotine patch. Thank you for allowing us to participate in the care of this pleasant patient. Do not hesitate to contact us with questions. Someone can be reached from the [facility] hospitalist group all hours of the day at [phone] or via [employer]. I reviewed the documentation as provided by the BOBBY above, who is the original author of this note. I agree with the documented assessment and plan, with the following changes: None Objective - Vital Signs Vital signs: Vital Signs Temp 98.2 F 01/02/22 07:34 Pulse 92 01/02/22 07:34 Resp 18 01/02/22 07:34 BP 136/86 01/02/22 07:34 Pulse Ox 97 01/02/22 07:34 Intake & Output 01/01/22 01/02/22 01/02/22 18:59 06:59 18:59 Intake Total 1780 Output Total 300 300 Balance -300 1480 Weight 56.699 kg Intake: Intake, IV Titration 1200 Amount Sodium Chloride 0.9% 1, 1200 000 ml @ 100 mls/hr IV . Q10H ONE Rx#:[id number] Oral 580 Output: Urine 300 300 Other: # Voids 2 5 - Labs CBC & Chem 7: 01/02/22 10:40 01/02/22 10:40 Labs: Abnormal Lab Results - Last 24 Hours (Table) 01/01/22 01/01/22 01/01/22 Range/Units 07:18 08:12 11:00 Sodium 134 L (137-145) mmol/L Chloride 97 L (98-107) mmol/L BUN 8 L (9-20) mg/dL Creatinine 0.47 L (0.66-1.25) mg/dL Plasma Lactic Acid Jared 5.8 H* (0.7-2.0) mmol/L Calcium 8.2 L (8.4-10.2) mg/dL AST 72 H (17-59) U/L Ur Barbiturates Screen Detected H (NotDetected) Serum Alcohol 376 H* mg/dL 01/01/22 01/01/22 01/01/22 Range/Units 15:11 18:10 20:43 Sodium (137-145) mmol/L Chloride (98-107) mmol/L BUN (9-20) mg/dL Creatinine (0.66-1.25) mg/dL Plasma Lactic Acid Jared 3.8 H* 4.3 H* 3.1 H* (0.7-2.0) mmol/L Calcium (8.4-10.2) mg/dL AST (17-59) U/L Ur Barbiturates Screen (NotDetected) Serum Alcohol mg/dL
[2022-01-02] MEDS: PATIENT'S OWN (Buprenorphine Hcl [Subutex] 8 MG Tab.Subl) SUBLINGUAL SCH ×2 (09:38→11:30)
[2022-01-02 11:08] LABS: HCT 39.1 % (39.0-53.0); HGB 12.5 gm/dL (13.0-17.5); MCH 32.8 pg (25.0-35.0); MCV 102.3 fL (80.0-100.0); Macrocytosis Slight; Mean Platelet Volume 7.1; Platelet Count 446 k/uL (150-450); RBC 3.82 m/uL (4.30-5.90); RDW 14.4 % (11.5-15.5); WBC 8.8 k/uL (3.8-10.6)
[2022-01-02 11:20] LABS: ALT 106 U/L (4-49); AST 147 U/L (17-59); African American GFR (CKD) >90 (>60 ml/min/1.73 sqM); Albumin 3.2 g/dL (3.5-5.0); Albumin/Globulin Ratio 1.2; Alkaline Phosphatase 78 U/L (38-126); Anion Gap 0 mmol/L; Blood Urea Nitrogen 11 mg/dL (9-20); Calcium 8.2 mg/dL (8.4-10.2); Carbon Dioxide 28 mmol/L (22-30); Chloride 107 mmol/L (98-107); Globulin 2.7 g/dL; Glucose 103 mg/dL (74-99); Magnesium 1.8 mg/dL (1.6-2.3); Non-African American GFR(CKD) >90 (>60 ml/min/1.73 sqM); Potassium 3.8 mmol/L (3.5-5.1); Sodium 135 mmol/L (137-145); Total Bilirubin 0.4 mg/dL (0.2-1.3); Total Protein 5.9 g/dL (6.3-8.2)
--- NOTE | 2022-01-02 13:30 | P.DS ---
Providers Date of admission: 01/01/22 09:25 Expected date of discharge: 01/02/22 Attending physician: Scooby Mays Consults: 01/01/22 09:19 Consult Physician Urgent Consulting Provider: Caterina Adam Consult Reason/Comments: Neurological assessment Do you want consulting provider notified?: Yes Consult Physician Urgent Consulting Provider: Jackie Staples Consult Reason/Comments: Medical management Do you want consulting provider notified?: Yes Primary care physician: Stated None Hospital Course: Discharge diagnosis 1. Fall with facial abrasion 2. Alcohol intoxication Hospital course This is a 56-year-old man is brought into the ER after a fall. He fell at home from ground-level striking the right side of his head. He is on Xarelto at home. He was intoxicated when he came into the ER. He was found to have an elevated alcohol level. Computed tomography scan of the brain and cervical spine shows no acute intracranial abnormality. No fracture noted. Patient was seen and evaluated by medical service. They have cleared him for discharge. Neurology was consult in the ER. They reviewed the charts labs and CAT scans and then elected not to see this patient. He is up and ambulating. He is tolerating diet. He is not complaining of any new pain. He had been placed on the CIWA protocol during his admission. Patient is requesting to be discharged. He is stable for discharge. Please refer to chart for any further details. Physician Head Turning Machine Operator note has been reviewed by physician. Signing provider agrees with the documented findings, assessment, and plan of care. Patient Condition at Discharge: Stable Plan - Discharge Summary Discharge Rx Participant: No New Discharge Prescriptions: Continue buprenorphine HCL [Subutex] 8 mg SL AC-TID Gabapentin 600 mg PO TID-W/MEALS Butalb/APAP/Caff 50-325-40Mg [Fioricet 50-325-40] 1 tab PO Q4H PRN PRN Reason: Migraine Headache Rivaroxaban [Xarelto] 2.5 mg PO BID Baclofen [Lioresal] 20 mg PO ACHS Thiamine [Vitamin B-1] 100 mg PO BID-W/MEALS tab Multivitamins, Thera [Multivitamin (formulary)] 1 tab PO DAILY Ferrous Sulfate [Iron (65 MG Elemental)] 325 mg PO DAILY Discharge Medication List buprenorphine HCL [Subutex] 8 mg SL AC-TID 04/27/19 [History] Baclofen [Lioresal] 20 mg PO ACHS 12/15/21 [History] Butalb/APAP/Caff 50-325-40Mg [Fioricet 50-325-40] 1 tab PO Q4H PRN 12/15/21 [History] Gabapentin 600 mg PO TID-W/MEALS 12/15/21 [History] Rivaroxaban [Xarelto] 2.5 mg PO BID 12/15/21 [History] Thiamine [Vitamin B-1] 100 mg PO BID-W/MEALS tab 12/29/21 [Rx] Ferrous Sulfate [Iron (65 MG Elemental)] 325 mg PO DAILY 01/01/22 [History] Multivitamins, Thera [Multivitamin (formulary)] 1 tab PO DAILY 01/01/22 [History] Follow up Appointment(s)/Referral(s): None,Stated [Primary Care Provider] - 1-2 days Activity/Diet/Wound Care/Special Instructions: Recommend alcohol cessation Discharge Disposition: HOME SELF-CARE
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
== END 2022-01-02 13:55 | disposition home or self-care (01) ==
LOC: EC 06:56 → 4SSUR 09:25
PROVIDERS: ADMIT Surgery; ATTEND Surgery
DX: S00.81XA Abrasion of other part of head, initial encounter (principal); F10.129 Alcohol abuse with intoxication, unspecified; Y90.8 Blood alcohol level of 240 mg/100 ml or more; W18.30XA Fall on same level, unspecified, initial encounter; Y92.009 Unspecified place in unspecified non-institutional (private) residence as the place of occurrence of the external cause; F17.210 Nicotine dependence, cigarettes, uncomplicated; J44.9 Chronic obstructive pulmonary disease, unspecified; R00.1 Bradycardia, unspecified; F20.0 Paranoid schizophrenia; F31.9 Bipolar disorder, unspecified; F90.9 Attention-deficit hyperactivity disorder, unspecified type; K58.9 Irritable bowel syndrome, unspecified; G62.9 Polyneuropathy, unspecified; G89.29 Other chronic pain; M54.50 Low back pain, unspecified; M41.9 Scoliosis, unspecified; Z79.01 Long term (current) use of anticoagulants; Z91.013 Allergy to seafood; Z88.6 Allergy status to analgesic agent; Z87.01 Personal history of pneumonia (recurrent); Z86.14 Personal history of Methicillin resistant Staphylococcus aureus infection; Z80.3 Family history of malignant neoplasm of breast; Z82.41 Family history of sudden cardiac death; Z82.49 Family history of ischemic heart disease and other diseases of the circulatory system; Z71.41 Alcohol abuse counseling and surveillance of alcoholic; Z71.6 Tobacco abuse counseling; Z81.1 Family history of alcohol abuse and dependence
CPT/HCPCS: 99285; 96376 ×2; 96361 ×2; 96374; 36415; 93005; 86900; 86901; 80053 ×2; 83605 ×2; 83735; 84484; 85025; 85027; 85610; 85730; 86850; 81003; 80306; 72125; 70450; 90715; 90471; G0378 ×2; G0480; S4990; J2060 ×2; 80320

== ENCOUNTER 2022-01-08 22:47 | Emergency (ER) | payer MEDICARE, OTHER ==
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
[2022-01-08] MEDS ORDERED: SODIUM CHLORIDE 0.9% 1,000 ML IV STA (22:54)
[2022-01-08 23:09] VITALS: RESP 18
[2022-01-09 00:59] VITALS: BP 120/74; PULSE 71; TEMP 97.9
== END 2022-01-09 00:57 | disposition home or self-care (01) ==
LOC: EC 22:47
DX: F10.129 Alcohol abuse with intoxication, unspecified (principal); J44.9 Chronic obstructive pulmonary disease, unspecified; F41.9 Anxiety disorder, unspecified; F31.9 Bipolar disorder, unspecified; F90.9 Attention-deficit hyperactivity disorder, unspecified type; F20.9 Schizophrenia, unspecified; F17.210 Nicotine dependence, cigarettes, uncomplicated; Z88.6 Allergy status to analgesic agent; Z91.013 Allergy to seafood
CPT/HCPCS: 99284

== ENCOUNTER 2022-01-09 10:00 | Observation (INO) | payer MEDICARE, OTHER ==
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
[2022-01-09 10:55] LABS: Basophils # (A) 0.1 k/uL (0-0.2); Basophils % (A) 1 %; Eosinophils # (A) 0.3 k/uL (0-0.7); Eosinophils % (A) 6 %; HCT 37.8 % (39.0-53.0); HGB 12.5 gm/dL (13.0-17.5); Lymphocytes # (A) 1.4 k/uL (1.0-4.8); Lymphocytes % (A) 28 %; MCH 33.3 pg (25.0-35.0); Macrocytosis Slight; Mean Platelet Volume 6.8; Monocytes # (A) 0.3 k/uL (0-1.0); Monocytes % (A) 6 %; Neutrophils # (A) 2.7 k/uL (1.3-7.7); Neutrophils % (A) 55 %; Platelet Count 385 k/uL (150-450); RBC 3.75 m/uL (4.30-5.90); RDW 14.7 % (11.5-15.5); WBC 4.9 k/uL (3.8-10.6)
[2022-01-09 11:15] LABS: ALT 64 U/L (4-49); AST 66 U/L (17-59); African American GFR (CKD) >90 (>60 ml/min/1.73 sqM); Albumin 3.9 g/dL (3.5-5.0); Alkaline Phosphatase 96 U/L (38-126); Anion Gap 14 mmol/L; Blood Urea Nitrogen 6 mg/dL (9-20); Calcium 8.3 mg/dL (8.4-10.2); Carbon Dioxide 22 mmol/L (22-30); Chloride 107 mmol/L (98-107); Glucose 96 mg/dL (74-99); Non-African American GFR(CKD) >90 (>60 ml/min/1.73 sqM); Potassium 4.4 mmol/L (3.5-5.1); Sodium 143 mmol/L (137-145); Total Bilirubin 0.1 mg/dL (0.2-1.3)
[2022-01-09 11:32] LABS: Alcohol 370 mg/dL
[2022-01-09] MEDS ORDERED: SODIUM CHLORIDE 0.9% 1,000 ML IV STA (11:59)
[2022-01-09] MEDS ORDERED: SODIUM CHLORIDE 0.9% 1,000 ML with THIAMINE 100 MG, FOLIC ACID 1 MG IV ONE ×3 (12:00)
[2022-01-09] MEDS ORDERED: LORazepam 2 MG/ML INJ IV PRN (12:06)
[2022-01-09] MEDS ORDERED: NALOXONE 0.4 MG/ML 1 ML VIAL IV PRN (12:27)
[2022-01-09] MEDS: LORazepam 2 MG/ML INJ IV PRN ×3 (13:08→22:08)
[2022-01-09] MEDS: THIAMINE 100 MG TAB PO SCH (16:53)
[2022-01-09] MEDS ORDERED: bisacodyL 5 MG TABLET.DR PO PRN (17:14)
[2022-01-09] MEDS ORDERED: MELATONIN 3 MG TABLET PO PRN (17:14)
[2022-01-09] MEDS ORDERED: ONDANSETRON 4 MG/2 ML VIAL IVP PRN (17:14)
[2022-01-09] MEDS ORDERED: ACETAMINOPHEN TAB 325 MG TAB PO PRN (17:14)
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
[2022-01-09] MEDS: NICOTINE 21MG/24HR PATCH TRANSDERM SCH (17:23)
[2022-01-09] MEDS: FOLIC ACID 1 MG TAB PO SCH (17:23)
[2022-01-10] MEDS: LORazepam 2 MG/ML INJ IV PRN ×2 (03:20→07:49)
[2022-01-10 06:56] LABS: HCT 38.4 % (39.0-53.0); HGB 12.2 gm/dL (13.0-17.5); MCH 32.9 pg (25.0-35.0); MCHC 31.9 g/dL (31.0-37.0); MCV 103.1 fL (80.0-100.0); Macrocytosis Slight; Mean Platelet Volume 7.2; Platelet Count 326 k/uL (150-450); RBC 3.73 m/uL (4.30-5.90); RDW 13.8 % (11.5-15.5); WBC 7.2 k/uL (3.8-10.6)
[2022-01-10 07:12] LABS: ALT 46 U/L (4-49); AST 34 U/L (17-59); African American GFR (CKD) >90 (>60 ml/min/1.73 sqM); Albumin 3.5 g/dL (3.5-5.0); Albumin/Globulin Ratio 1.1; Alkaline Phosphatase 85 U/L (38-126); Anion Gap 6 mmol/L; Blood Urea Nitrogen 14 mg/dL (9-20); Carbon Dioxide 26 mmol/L (22-30); Chloride 105 mmol/L (98-107); Globulin 3.2 g/dL; Glucose 106 mg/dL (74-99); Non-African American GFR(CKD) >90 (>60 ml/min/1.73 sqM); Potassium 4.5 mmol/L (3.5-5.1); Sodium 137 mmol/L (137-145); Total Bilirubin 0.3 mg/dL (0.2-1.3); Total Protein 6.7 g/dL (6.3-8.2)
[2022-01-10] MEDS: NICOTINE 21MG/24HR PATCH TRANSDERM SCH (07:30)
[2022-01-10] MEDS: FOLIC ACID 1 MG TAB PO SCH (07:31)
[2022-01-10] MEDS: THIAMINE 100 MG TAB PO SCH (07:32)
[2022-01-10 07:48] VITALS: BP 138/90; PULSE 97; RESP 18; TEMP 97.6
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
--- NOTE | 2022-01-10 10:46 | P.DS ---
Providers Date of admission: 01/09/22 12:38 Expected date of discharge: 01/10/22 Attending physician: Batsheva Cintron DO Consults: 01/09/22 12:31 Consult Physician Routine Consulting Provider: Jacques Loja Consult Reason/Comments: petitioned by police Do you want consulting provider notified?: Already Contacted Primary care physician: Basil Srinivasan MD Hospital Course: Discharge Diagnosis: Alcohol abuse, chronic daily alcohol abuse with recurrent episodes of binge drinking behaviors, advised cessation of all alcohol use and recommended inpatient drug and alcohol rehabilitation program in which patient is declining at this time. Chronic pain, Continue daily home medication regimen with Buprenorphine as prescribed by pain management provider. History of DVTs, Continue oral anticoagulant with Xarelto. 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 He presented to the emergency department with a chief complaint of alcohol intoxication and petitioned by police secondary to their concerns of patient being unable to care for himself. Patient was seen and fully evaluated in the emergency department. His serum alcohol level was 370 and hemoglobin was 12.5. In addition patient had elevated AST of 66 and ALT of 64, chronic.. Patient admitted under our services to observation for detox and evaluation by psychiatry. Patient has had multiple recent admissions for alcohol intoxication and severe hyponatremia. Patient reports no desire to stop drinking at this time. Patient was admitted overnight and underwent detox from alcohol and is clinically sober at this time. He was seen and evaluated by psychiatry unstated patient does not meet criteria for inpatient psychiatric admission and despite recommendations patient continues to be contemplative on his alcohol use disorder and not currently ready for action. No medication changes were recommended and patient was cleared by psychiatry for discharge. Patient is medically stable for discharge and again strongly advised to stop drinking alcohol. Physical exam: Vital signs reviewed and stable. General: Nontoxic, no distress and appears stated age. Derm: Skin warm and dry, normal coloration for ethnicity. Head: Atraumatic, normocephalic and symmetric. Eyes: EOMs intact, no lid lag, and anicteric sclera Mouth: no lip lesions, mucus membranes moist Cardiovascular: regular rate and rhythm with normal S1S2, no murmur, positive posterior tibial pulses bilaterally, and cap refill < 2 seconds. Lungs: Respirations even, regular, and unlabored on room air. Lungs CTA bilaterally, no rhonchi, no rales, no wheezing, and no accessory muscle usage. Abdominal: soft, nontender to palpation, no guarding, no appreciable organomegaly Ext: ROM intact. No gross muscle atrophy, no edema, no contractures Neuro: Speech clear, face symmetrical and CN II-XII grossly intact with no noted focal neuro deficits Psych: Alert and oriented to person, place, time, and situation. Appropriate and pleasant affect. A total of 31 minutes of time were spent preparing this complex discharge summary. Pt was discharged on 01/10/22 at 10:43 AM Josue Cavazos NP rendered care for this patient independently, reviewed the findings and plan as documented in the note above. I did not physically speak with or examine the patient on this date. Patient Condition at Discharge: Stable Plan - Discharge Summary New Discharge Prescriptions: Continue buprenorphine HCL [Subutex] 8 mg SL AC-TID Gabapentin 600 mg PO TID-W/MEALS Butalb/APAP/Caff 50-325-40Mg [Fioricet 50-325-40] 1 tab PO Q4H PRN PRN Reason: Migraine Headache LORazepam [Ativan] 1 mg PO DIRECTED PRN PRN Reason: withdrawal Rivaroxaban [Xarelto] 2.5 mg PO BID Baclofen [Lioresal] 20 mg PO ACHS Thiamine [Vitamin B-1] 100 mg PO BID-W/MEALS tab Multivitamins, Thera [Multivitamin (formulary)] 1 tab PO DAILY Ferrous Sulfate [Iron (65 MG Elemental)] 325 mg PO DAILY Folic Acid 1 mg PO DAILY tab Discontinued Doxycycline Hyclate 100 mg PO DIRECTED Discharge Medication List buprenorphine HCL [Subutex] 8 mg SL AC-TID 04/27/19 [History] Baclofen [Lioresal] 20 mg PO ACHS 12/15/21 [History] Butalb/APAP/Caff 50-325-40Mg [Fioricet 50-325-40] 1 tab PO Q4H PRN 12/15/21 [History] Gabapentin 600 mg PO TID-W/MEALS 12/15/21 [History] Rivaroxaban [Xarelto] 2.5 mg PO BID 12/15/21 [History] Thiamine [Vitamin B-1] 100 mg PO BID-W/MEALS tab 12/29/21 [Rx] Ferrous Sulfate [Iron (65 MG Elemental)] 325 mg PO DAILY 01/01/22 [History] Multivitamins, Thera [Multivitamin (formulary)] 1 tab PO DAILY 01/01/22 [History] Folic Acid 1 mg PO DAILY tab 01/08/22 [Rx] LORazepam [Ativan] 1 mg PO DIRECTED PRN 01/09/22 [History] Follow up Appointment(s)/Referral(s): Basil Srinivasan MD [Primary Care Provider] - 1-2 days Activity/Diet/Wound Care/Special Instructions: Activity: As tolerated. Take breaks as needed. Diet: Regular diet, recommend total cessation of all alcohol use. Special Instructions: Take all of your medications as directed and remember to keep all of your doctor's appointments and follow-up as needed. As we have discussed multiple times in the past, I strongly encourage you to go to an inpatient drug and alcohol rehabilitation facility and to STOP drinking alcohol. Continued consumption of alcohol is only going to lead to further health comorbidities up to and including . Thank you for allowing us to participate in your care, it was truly a pleasure having you for our patient!!! Discharge/Stand Alone Forms: CARLA Morales [facility], Personal [employer] Operator Discharge Disposition: HOME SELF-CARE
== END 2022-01-10 12:12 | disposition home or self-care (01) ==
LOC: EC 10:00 → 6NMEDSUR 12:38
PROVIDERS: ADMIT Internal Medicine; ATTEND Internal Medicine
DX: F10.129 Alcohol abuse with intoxication, unspecified (principal); F10.139 Alcohol abuse with withdrawal, unspecified; G89.29 Other chronic pain; J44.9 Chronic obstructive pulmonary disease, unspecified; G62.9 Polyneuropathy, unspecified; M54.50 Low back pain, unspecified; K58.9 Irritable bowel syndrome, unspecified; F90.9 Attention-deficit hyperactivity disorder, unspecified type; F41.9 Anxiety disorder, unspecified; F31.9 Bipolar disorder, unspecified; F20.0 Paranoid schizophrenia; R74.01 Elevation of levels of liver transaminase levels; F17.210 Nicotine dependence, cigarettes, uncomplicated; Z87.01 Personal history of pneumonia (recurrent); Z87.820 Personal history of traumatic brain injury; Z86.69 Personal history of other diseases of the nervous system and sense organs; Z86.14 Personal history of Methicillin resistant Staphylococcus aureus infection; Z86.718 Personal history of other venous thrombosis and embolism; Z79.01 Long term (current) use of anticoagulants; Z79.899 Other long term (current) drug therapy; Z88.8 Allergy status to other drugs, medicaments and biological substances; Z91.013 Allergy to seafood; Y90.8 Blood alcohol level of 240 mg/100 ml or more; Z56.0 Unemployment, unspecified; Z71.6 Tobacco abuse counseling; Z71.9 Counseling, unspecified; Z71.41 Alcohol abuse counseling and surveillance of alcoholic; Z82.49 Family history of ischemic heart disease and other diseases of the circulatory system; Z81.1 Family history of alcohol abuse and dependence; Z80.3 Family history of malignant neoplasm of breast; Z82.41 Family history of sudden cardiac death
CPT/HCPCS: 96376 ×2; 96366; 96375 ×2; 96365; 99285; 36415; 80053 ×2; 85025; 85027; G0378 ×2; G0480; S4990 ×2; J2060 ×2; J3411; J2405; 80320

== ENCOUNTER 2022-02-03 08:34 | Day surgery (SDC) | payer MEDICARE, OTHER ==
[2022-02-03] MEDS ORDERED: LACTATED RINGERS 1,000 ML IV SCH (08:49)
[2022-02-03] MEDS ORDERED: LIDOCAINE 1% (10MG/ML) FOR IV START INTRADERMA PRN (08:49)
[2022-02-03 09:04] VITALS: TEMP 97.2
[2022-02-03] MEDS ORDERED: methylPREDNISolone ACETATE 40 MG/ML 1 ML VIAL ONE (09:12)
[2022-02-03] MEDS ORDERED: ROPIVACAINE 5MG/ML 20ML VIAL ONE (09:12)
--- NOTE | 2022-02-03 09:32 | P.PCN ---
Date of Procedure: 02/03/22 Procedure(s) Performed: PREOPERATIVE DIAGNOSIS : 1- Lumbar spondylosis with Facet Arthropathy without myelopathy . 2- Lumber degenerative disc disease POSTOPERATIVE DIAGNOSIS: 1- Lumbar spondylosis with Facet Arthropathy without myelopathy . 2- Lumber degenerative disc disease PROCEDURE: Diagnostic bilateral L3 , L4 , and L5 medial branch block under fluoroscopy guidance(fluoroscopy images available in the radiology Department ) ( To target the facet joint between bilateral L4-5 , and L5-S1 )# 1st ANESTHESIA: Only local anesthetic with ropivacaine 0.5% EBL: Minimal COMPLICATION: None PROCEDURE INDICATION: Chronic low back pain secondary to Facet arthropathy unresponsive to conservative treatment. PROCEDURE DESCRIPTION: the patient was seen and identified in the preop holding area , risks and benefits and possible complications of the procedure and alternative were discussed with the patient, and the patient agreed to proceed with the procedure and signed the consent and vital signs monitored during the procedure and fluoroscopy was used to maximize the benefit and accuracy of the needle placement ,, patient was taken to the procedure room and placed in prone position vital signs monitored in the back prepped with chlorhexidine X3 then under strict sterile technique using a right oblique fluoroscopy ,the junction of the transverse process and the superior articulating process of the right L3 , L4 , and L5 vertebra which corresponding to the fluoroscopy image of the eye of the Angel dog on the block side for the medial branches and subsequently , after local infiltration of skin and subcu tissuies with Ropivacaine 0.5 % , one mL at each level ,then 25-gauge Quincke-type needles , 3 needle was used , each one of them placed at the junction of the base of the transverse process and the superior articular process at the appropriate level, and the needle was advanced until the periosteum contacted, needle placement confirmed with AP oblique and lateral view and after appropriate needle placement confirmed, and after negative aspiration for heme and CSF and there was no paresthesia 1-1/2 mL of Ropivacaine 0.5% mixed with 20 mg Depo-Medrol , then half mL injected at each level after negative aspiration the needle subsequently removed and the same procedure repeated for the left side at left side at L3 , L4 and L5 levels. At the end of the procedure and the needles removed and a bandage applied after the skin was cleaned the cleaning solution patient taken to recovery room in stable condition and monitors in the recovery room for 20-30 minutes and discharged home in stable condition after discharge criteria met and patient will follow up with the pain clinic in 2-4 weeks
[2022-02-03 09:39] VITALS: RESP 18
--- NOTE | 2022-02-03 09:48 | FL ---
EXAMINATION TYPE: FL guided pain mgmt statistic DATE OF EXAM: 02/03/2022 HISTORY: Pain Giovanni Lumbar Facet .12sec fluoro time,4 images to PACS
[2022-02-03 09:55] VITALS: BP 95/63; PULSE 70
== END 2022-02-03 09:55 | disposition home or self-care (01) ==
LOC: ORPAIN 08:34
PROVIDERS: ATTEND Specialist
DX: M47.816 Spondylosis without myelopathy or radiculopathy, lumbar region (principal); M51.36 Other intervertebral disc degeneration, lumbar region; G89.29 Other chronic pain; Z88.6 Allergy status to analgesic agent; Z91.018 Allergy to other foods; Z79.01 Long term (current) use of anticoagulants; Z79.899 Other long term (current) drug therapy; F17.200 Nicotine dependence, unspecified, uncomplicated; Z82.49 Family history of ischemic heart disease and other diseases of the circulatory system; Z81.1 Family history of alcohol abuse and dependence; Z80.3 Family history of malignant neoplasm of breast
CPT/HCPCS: 64493; 64494; J1030; J2795

== ENCOUNTER → 2022-02-23 | Outpatient (CLI) | payer MEDICARE, OTHER ==
[2022-02-23 11:29] VITALS: BP 122/68; PULSE 85; RESP 18; TEMP 98.6
--- NOTE | 2022-02-23 11:30 | P.PAINPG ---
PQRS Measure Charge Sheet Comment: A 57 yr old male with a history of severe and chronic low back pain secondary to lumbar degenerative disc diseases and lumbar spondylosis with facet arthropathy presents today for evaluation status post BL MBB L4-L5, L5-S1 #1. He states he experienced 30% pain relief x 2 days s/p procedure. Pain is located in the lower back, 8/10 in intensity, constant, sharp pain with radiation to BL hips. Pain is provoked by laying supine. Pain is alleviated with PT for 4 wks in November 2021, heat, ice, walking. Interventional pain procedures completed include R SI injection, BL MBB L3-L5 x 1 Patient is currently on Baclofen Patient denies any side effects of the medication(s), denies excessive drowsiness or sleepiness, denies suicidal ideation and reports that the current pain medication is helping to control the pain and improve activities of daily living. Patient denies any motor or sensory deficits. Patient denies any fever or night sweats, denies any change in the bowel movements or urination. Physical Examination: -Constitutional: Cooperative. Not in acute distress . - Neurologic: Cranial nerve II to XII intact. No focal neurological deficits. - Psychatric: Alert & oriented x 3. Matching mood & appropriate affect. Judgment and insight intact. - Musculoskeletal: Cervical spine: Muscle bulk/ tone/ strength in the bilateral upper extremities normal Vertebral body tenderness to palpation over Spurling test positive Distraction test positive Facet loading test positive Thoracic spine Muscle bulk / tone/ strength in the bilateral paraspinal muscles normal Vertebral body tender to palpation over Facet loading test positive Lumbar spine: Motor bulk/ tone/ strength lower extremities , thigh and legs : 5/5 Deep tendon reflexes : Normal Knee Jerk. Normal Ankle Jerk . Vertebral body tenderness to palpation over L5 Lumbar Facet Loading Test positive Straight Leg Raise: positive at 30 degrees right side/ left side Gaenslen's Test positive Sacral spine : Severe tenderness over the Sacroiliac joint: right side / left side Range of motion: Flexion of the lumbar spine <60 degrees Range of motion: Extension of the lumbar spine <20 degrees Gaenslen's Test positive Al's Test positive Shira test: positive right side / left side Thigh Thrust Test Sacral Thrust Test Assessment and plan: Chronic low back pain secondary to lumbar degenerative disc disease , lumbar spondylosis with facet arthropathy without myelopathy Recommendation of LESI L5-S1. May need a series of injections, up to 3 within a 6 mo period, for optimal pain relief. Risks, benefits of procedure discussed and pt verbalized understanding. Denies anticoagulant use or medical history of diabetes. All patient questions answered MAPS reviewed and it was appropriate. Prescription for Lidoderm 5% #30 w 1 refill. Use, side effects and interactions discussed. Pt acknowledged understanding. I have spent less than 30 minutes on patient care today. Dr Gaitan was available by phone for the evaluation of this patient. The time was used to review the medical records including relevant urine studies and Prescription history (MAPs), review of the available imaging, evaluation and examination of the patient, coordination of care with the medical staff and if applicable referring physicians, as well as creation of the medical record PQRS Narrative: Smoking Status Current every day smoker Hx Alcohol Use (MH) No Home Medications: Ambulatory Orders buprenorphine HCL [Subutex] 8 mg SL AC-BID 04/27/19 Baclofen [Lioresal] 20 mg PO ACHS 12/15/21 Butalb/APAP/Caff 50-325-40Mg [Fioricet 50-325-40] 1 tab PO Q4H PRN 12/15/21 Gabapentin 600 mg PO TID-W/MEALS 12/15/21 Rivaroxaban [Xarelto] 2.5 mg PO BID 12/15/21 Ferrous Sulfate [Iron (65 MG Elemental)] 325 mg PO DAILY 01/01/22 Multivitamins, Thera [Multivitamin (formulary)] 1 tab PO DAILY 01/01/22 Doxylam/PE/Dm/Acetaminophen/GG [Rivka-Jet Plus Cold Day-Nt] 1 packet PO DIRECTED PRN 02/02/22 clonazePAM 1 tab PO TID 02/03/22 Controlled Substance Measures - Controlled Substance Measures Is patient prescribed a controlled substance at discharge?: No
== END ==
LOC: PNWHC3 11:02
PROVIDERS: ATTEND Specialist
DX: M47.816 Spondylosis without myelopathy or radiculopathy, lumbar region (principal); M51.36 Other intervertebral disc degeneration, lumbar region; G89.29 Other chronic pain; Z91.013 Allergy to seafood; Z88.6 Allergy status to analgesic agent; F17.200 Nicotine dependence, unspecified, uncomplicated
CPT/HCPCS: 99211

== ENCOUNTER 2022-03-08 12:09 | Observation (INO) | payer MEDICARE, OTHER ==
[2022-03-08] MEDS ORDERED: SODIUM CHLORIDE 0.9% 1,000 ML IV STA (12:52)
[2022-03-08 13:12] LABS: Basophils % (A) 0 %; Eosinophils # (A) 0.2 k/uL (0-0.7); Eosinophils % (A) 2 %; HCT 39.9 % (39.0-53.0); HGB 12.7 gm/dL (13.0-17.5); Lymphocytes # (A) 1.7 k/uL (1.0-4.8); Lymphocytes % (A) 24 %; MCH 31.6 pg (25.0-35.0); MCHC 31.9 g/dL (31.0-37.0); MCV 98.9 fL (80.0-100.0); Mean Platelet Volume 7.5; Monocytes # (A) 0.3 k/uL (0-1.0); Monocytes % (A) 4 %; Neutrophils # (A) 4.8 k/uL (1.3-7.7); Neutrophils % (A) 68 %; Platelet Count 328 k/uL (150-450); RBC 4.03 m/uL (4.30-5.90); RDW 13.6 % (11.5-15.5)
[2022-03-08 13:24] LABS: ALT 14 U/L (4-49); AST 18 U/L (17-59); African American GFR (CKD) >90 (>60 ml/min/1.73 sqM); Albumin 4.2 g/dL (3.5-5.0); Alkaline Phosphatase 94 U/L (38-126); Amylase 87 U/L (30-110); Anion Gap 9 mmol/L; Blood Urea Nitrogen 7 mg/dL (9-20); Calcium 9.1 mg/dL (8.4-10.2); Carbon Dioxide 28 mmol/L (22-30); Chloride 103 mmol/L (98-107); Glucose 108 mg/dL (74-99); Lipase 25 U/L (23-300); Magnesium 1.9 mg/dL (1.6-2.3); Non-African American GFR(CKD) >90 (>60 ml/min/1.73 sqM); Potassium 4.5 mmol/L (3.5-5.1); Sodium 140 mmol/L (137-145); Total Bilirubin 0.2 mg/dL (0.2-1.3); Total Protein 7.5 g/dL (6.3-8.2)
--- NOTE | 2022-03-08 13:39 | CT ---
EXAMINATION TYPE: CT brain wo con DATE OF EXAM: 03/08/2022 COMPARISON: CT brain 01/01/2022 HISTORY: Altered mental status CT DLP: 1087.4 mGycm Automated exposure control for dose reduction was used. Helical acquisition through the brain FINDINGS: There are cerebral vascular calcifications. Brain density is stable, there is some encephalomalacia a t the posterior left temporal lobe. No hemorrhage or hydrocephalus. Lobular soft tissue within the ri ght maxillary sinus may represent polyps or mucous retention cyst, there is inflammatory change also noted in the ethmoid air cells. The orbits show symmetric appearance. IMPRESSION: NO ACUTE ABNORMALITY
[2022-03-08 13:40] LABS: Alcohol 320 mg/dL
--- NOTE | 2022-03-08 13:48 | XR ---
EXAMINATION TYPE: XR chest 1V portable DATE OF EXAM: 03/08/2022 COMPARISON: 01/07/2022 HISTORY: Cough TECHNIQUE: Single frontal view of the chest is obtained. FINDINGS: Hyperinflation. Heart size normal. No evidence of pneumothorax. Biapical pleural thickenin g. Coarsened interstitium. Patchy right perihilar infiltrate. IMPRESSION: Correlate for COPD and chronic interstitial pulmonary fibrosis. Early right perihilar in filtrate in the differential diagnosis.
[2022-03-08 14:01] LABS: Appearance,Urine Clear (Clear); Bilirubin,Urine Negative (Negative); Blood,Urine Negative (Negative); Color,Urine Light Yellow; Glucose,Urine (UA) Negative (Negative); Ketones,Urine Negative (Negative); Leukocyte Esterase,Urine Negative (Negative); Nitrite,Urine Negative (Negative); PH, Urine 7.5 (5.0-8.0); Protein,Urine Negative (Negative); Specific Gravity,Urine 1.004 (1.001-1.035); Urobilinogen,Urine <2.0 mg/dL (<2.0)
[2022-03-08] MEDS ORDERED: LORazepam 2 MG/ML INJ IV STA (14:01)
[2022-03-08 14:19] VITALS: RESP 18
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
[2022-03-08 14:28] LABS: Amphetamine Screen,Urine Not Detected (NotDetected); Barbiturate Screen,Urine Not Detected (NotDetected); Benzodiazepines Screen,Urine Not Detected (NotDetected); Cocaine Screen,Urine Not Detected (NotDetected); Methadone Screen, Urine Not Detected (NotDetected); Opiate Screen,Urine Not Detected (NotDetected); Oxycodone Screen, Urine Not Detected (NotDetected); Phencyclidine Screen,Urine Not Detected (NotDetected); Tricyclic Antidepressant,Urine Not Detected (NotDetected); Urn Cannabinoid Scrn Not Detected (NotDetected)
[2022-03-08] MEDS ORDERED: NALOXONE 0.4 MG/ML 1 ML VIAL IV PRN (14:31)
[2022-03-08] MEDS ORDERED: LORazepam 2 MG/ML INJ IV PRN ×2 (14:56)
[2022-03-08] MEDS ORDERED: THIAMINE 100 MG/ML 2 ML VIAL IM STA (14:56)
[2022-03-08] MEDS ORDERED: NALOXONE 0.4 MG/ML 1 ML VIAL IVP PRN (15:09)
[2022-03-08] MEDS ORDERED: MELATONIN 3 MG TABLET PO PRN (15:09)
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
[2022-03-08] MEDS ORDERED: HEPARIN SODIUM,PORCINE/PF 5,000 UNIT/0.5 ML SYRINGE SQ SCH (16:00)
[2022-03-08] MEDS: SODIUM CHLORIDE 0.9% 1,000 ML IV SCH (17:16)
[2022-03-08] MEDS ORDERED: SODIUM CHLORIDE 0.9% 1,000 ML IV ONE (18:20)
[2022-03-08] MEDS: NICOTINE 21MG/24HR PATCH TRANSDERM SCH (19:10)
[2022-03-08] MEDS: RIVAROXABAN 2.5 MG TABLET PO SCH (19:19)
[2022-03-08] MEDS: LORazepam 2 MG/ML INJ IV PRN ×2 (19:47→22:38)
[2022-03-09] MEDS: SODIUM CHLORIDE 0.9% 1,000 ML IV SCH ×2 (00:17→09:58)
[2022-03-09] MEDS: LORazepam 2 MG/ML INJ IV PRN ×2 (00:59→05:46)
[2022-03-09] MEDS ORDERED: GABAPENTIN 300 MG CAP PO SCH (07:30)
[2022-03-09] MEDS ORDERED: NON FORMULARY DRUG (Buprenorphine Hcl [Subutex] 8 MG Tab.Subl) SUBLINGUAL SCH (07:30)
[2022-03-09] MEDS ORDERED: PANTOPRAZOLE 40 MG TABLET PO SCH (07:30)
[2022-03-09 07:53] VITALS: BP 131/79; PULSE 88; TEMP 98.3
[2022-03-09 08:52] LABS: Basophils # (A) 0.08 X 10*3/uL (0.00-0.10); Basophils % (A) 0.7 %; Eosinophils # (A) 0.15 X 10*3/uL (0.04-0.35); Eosinophils % (A) 1.3 %; HCT 36.1 % (39.6-50.0); HGB 11.8 g/dL (13.0-17.0); Immature Grans, Automated 0.3 %; Lymphocytes # (A) 2.28 X 10*3/uL (0.90-5.00); Lymphocytes % (A) 20.1 %; MCHC 32.7 g/dL (32.0-37.0); MCV 94.8 fL (80.0-97.0); Mean Platelet Volume 9.9 fL (9.5-12.2); Monocytes % (A) 9.7 %; NRBC Per 100 WBC 0 /100 WBCS (0.0-0.0); Neutrophils # (A) 7.69 X 10*3/uL (1.80-7.70); Neutrophils % (A) 67.9 %; Platelet Count 279 X 10*3/uL (140-440); RBC 3.81 X 10*6/uL (4.40-5.60); RDW 13.6 % (11.5-14.5); WBC 11.33 X 10*3/uL (4.50-10.00)
[2022-03-09] MEDS ORDERED: THIAMINE 100 MG TAB PO SCH (09:00)
[2022-03-09] MEDS ORDERED: MULTIVITAMINS, THERA 1 EACH TAB PO SCH (09:00)
[2022-03-09] MEDS ORDERED: FOLIC ACID 1 MG TAB PO SCH (09:00)
[2022-03-09] MEDS ORDERED: FERROUS SULFATE 325 MG TAB PO SCH (09:00)
[2022-03-09 09:17] LABS: African American GFR (CKD) 141.4 (60.0-200.0); Anion Gap 10.9 mmol/L (10.00-18.00); Blood Urea Nitrogen 11.5 mg/dL (9.0-27.0); Calcium 8.6 mg/dL (8.7-10.3); Carbon Dioxide 22.1 mmol/L (20.0-27.5); Potassium 4.3 mmol/L (3.5-5.5)
[2022-03-09] MEDS: NICOTINE 21MG/24HR PATCH TRANSDERM SCH (09:18)
[2022-03-09] MEDS: RIVAROXABAN 2.5 MG TABLET PO SCH (09:18)
--- NOTE | 2022-03-09 10:54 | P.DS ---
Providers Date of admission: 03/08/22 14:31 Attending physician: Batsheva Cintron DO Primary care physician: Basil Srinivasan MD Hospital Course: Discharge Diagnosis: Alcohol intoxication in active alcoholic, patient is clinically sober and demanding discharge at this time. Patient was strongly advised on avoiding all further alcohol use. Patient was instructed that continued abuse of alcohol can only lead to detrimental health consequences up to and including . Patient encouraged to return to rehabilitation Center, but declining at this time. Chronic pain . Continue daily home medication regimen with Buprenorphine to avoid further withdrawal. History of DVTs. Continue oral anticoagulant with Xarelto. Nicotine dependence. Educated and encouraged patient on the benefits of smoking cessation and the risks of continued use. Severe protein malnourishment. Recommend alcohol cessation and use of Protein supplements 3 times daily between meals. Hospital Course: Patient is a very pleasant 56-year-old male with a past medical history of chronic pain on Buprenorphine, alcohol abuse, anxiety, 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 He is very well known to our services secondary to multiple previous admissions resulting from alcohol abuse/intoxication. He presented to the emergency department from [facility] with concerns of alcohol intoxication. Patient was admitted to [facility] reportedly undergoing detox from alcohol, however he was reported to be found by staff showing signs of acute alcohol intoxication and sent to the emergency department for evaluation. Patient currently denying drinking any alcohol but appeared to be agitated and demanding Ativan. He denied having any headache, lightheadedness, dizziness, chest pain, palpitations, shortness of breath, nausea, vomiting, or experiencing any numbness/tingling/weakness in his extremities. Patient denies having any injuries or recent falls. He does report feeling anxious and states he needs his Ativan. He underwent full evaluation in the emergency department. Labs drawn with CBC showing normocytic normochromic anemia with hemoglobin of 12.7. CMP showing no significant abnormalities. Serum alcohol 320 with lactic acid of 2.2. Urine drug screen negative. CT head was completed and negative for acute intercranial process. Chest x-ray correlating for findings of COPD with chronic interstitial pulmonary fibrosis. EKG showing sinus rhythm at 82 bpm with no noted T-wave or ST abnormalities showing no signs of acute ischemia. Patient was admitted under our services to undergo detox at this time. patient hospitalized overnight.after vigorous IV hydration and lactic acid decreased down to 0.6. Labs otherwise showing no significant abnormalities.upon morning assessment patient agitated demanding discharge at this time. Patient is clinically sober at this time. He is alert and oriented to person, place, time, and situation. Patient was strongly advised on the importance of alcohol cessation and risks of continued use up to and including . Patient was encouraged to return to inpatient rehabilitation center but declining at this time.patient has been given information on outpatient resources and assistance available to him. Patient medically stable for discharge at this time, again encouraged to return to inpatient drug and alcohol rehabilitation program. Physical exam: Vital signs reviewed and stable. General: Nontoxic, no distress and appears older than stated age. Thin, emaciated malnourished appearance. Derm: Skin warm and dry, normal coloration for ethnicity. Head: Atraumatic, normocephalic and symmetric. Eyes: EOMs intact, no lid lag, and anicteric sclera Mouth: no lip lesions, mucus membranes moist Cardiovascular: regular rate and rhythm with normal S1S2, no murmur, positive posterior tibial pulses bilaterally, and cap refill < 2 seconds. Lungs: Respirations even, regular, and unlabored on room air. Lungs CTA bilaterally, no rhonchi, no rales, no wheezing, and no accessory muscle usage. Abdominal: soft, nontender to palpation, no guarding, no appreciable organomegaly Ext: ROM intact. No gross muscle atrophy, no edema, no contractures Neuro: Speech clear, face symmetrical and CN II-XII grossly intact with no noted focal neuro deficits Psych: Alert and oriented to person, place, time, and situation. Appropriate and pleasant affect. A total of 35 minutes of time were spent preparing this complex discharge summary. Pt was discharged on 03/09/22 at 10:37 AM I reviewed the documentation as provided by the BOBBY above, who is the original author of this note. I agree with the documented assessment and plan, with the following changes: none Patient Condition at Discharge: Stable Plan - Discharge Summary Discharge Rx Participant: No New Discharge Prescriptions: Continue buprenorphine HCL [Subutex] 8 mg SL AC-TID Gabapentin 600 mg PO TID-W/MEALS Butalb/APAP/Caff 50-325-40Mg [Fioricet 50-325-40] 1 tab PO Q4-6H PRN PRN Reason: Migraine Headache Rivaroxaban [Xarelto] 2.5 mg PO BID Baclofen [Lioresal] 20 mg PO ACHS Multivitamins, Thera [Multivitamin (formulary)] 1 tab PO DAILY Ferrous Sulfate [Iron (65 MG Elemental)] 325 mg PO DAILY Discontinued clonazePAM [KlonoPIN] 2 mg PO BID Discharge Medication List buprenorphine HCL [Subutex] 8 mg SL AC-TID 04/27/19 [History] Baclofen [Lioresal] 20 mg PO ACHS 12/15/21 [History] Butalb/APAP/Caff 50-325-40Mg [Fioricet 50-325-40] 1 tab PO Q4-6H PRN 12/15/21 [History] Gabapentin 600 mg PO TID-W/MEALS 12/15/21 [History] Rivaroxaban [Xarelto] 2.5 mg PO BID 12/15/21 [History] Ferrous Sulfate [Iron (65 MG Elemental)] 325 mg PO DAILY 01/01/22 [History] Multivitamins, Thera [Multivitamin (formulary)] 1 tab PO DAILY 01/01/22 [History] Follow up Appointment(s)/Referral(s): Alise Alvarez MD [Medical Doctor] - 1 Week Basil Srinivasan MD [Primary Care Provider] - 1-2 days Patient Instructions/Handouts: Alcohol Intoxication (DC) Activity/Diet/Wound Care/Special Instructions: Activity: As tolerated. Take breaks as needed. Diet: Heart healthy and carb consistent diet. Avoid salts, or foods with hidden salts such as canned or boxed foods and frozen dinners. Extra salt makes your heart work harder and traps the fluid in your body for longer. Special Instructions: Take all of your medications as directed and remember to keep all of your doctor's appointments and follow-up as needed. Thank you for allowing us to participate in your care, it was truly a pleasure having you for our patient!!! Strongly advised cessation of ALL alcohol use. As we have discussed on multiple occasions if you continue to drink the way you're drinking, this can only lead to detrimental consequences. I strongly encourage you to seek assistance and go to an inpatient rehabilitation center. I understand you're adamant about going home, but continued drinking will lead to further deterioration of your health up to and including . Also if you continue to drink it is of utmost importance to avoid use of benzodiazepines, mixing benzodiazepines with alcohol use will lead to respiratory depression and also can result in . Discharge Disposition: HOME SELF-CARE
== END 2022-03-09 10:44 | disposition home or self-care (01) ==
LOC: EC 12:09 → 6NMEDSUR 14:31
PROVIDERS: ADMIT Internal Medicine; ATTEND Internal Medicine
DX: F10.129 Alcohol abuse with intoxication, unspecified (principal); E43 Unspecified severe protein-calorie malnutrition; E86.0 Dehydration; R79.89 Other specified abnormal findings of blood chemistry; G89.29 Other chronic pain; J44.9 Chronic obstructive pulmonary disease, unspecified; J84.10 Pulmonary fibrosis, unspecified; F17.200 Nicotine dependence, unspecified, uncomplicated; G62.9 Polyneuropathy, unspecified; D64.9 Anemia, unspecified; F20.0 Paranoid schizophrenia; F31.9 Bipolar disorder, unspecified; F41.9 Anxiety disorder, unspecified; F90.9 Attention-deficit hyperactivity disorder, unspecified type; M41.9 Scoliosis, unspecified; K58.9 Irritable bowel syndrome, unspecified; Y90.8 Blood alcohol level of 240 mg/100 ml or more; Z79.01 Long term (current) use of anticoagulants; Z79.899 Other long term (current) drug therapy; Z88.6 Allergy status to analgesic agent; Z91.018 Allergy to other foods; Z86.14 Personal history of Methicillin resistant Staphylococcus aureus infection; Z86.718 Personal history of other venous thrombosis and embolism; Z87.828 Personal history of other (healed) physical injury and trauma; Z98.890 Other specified postprocedural states; Z80.7 Family history of other malignant neoplasms of lymphoid, hematopoietic and related tissues; Z82.49 Family history of ischemic heart disease and other diseases of the circulatory system; Z82.41 Family history of sudden cardiac death; Z81.1 Family history of alcohol abuse and dependence; Z80.3 Family history of malignant neoplasm of breast; Z71.6 Tobacco abuse counseling; Z71.41 Alcohol abuse counseling and surveillance of alcoholic
CPT/HCPCS: 96376 ×2; 96361; 96372; 82075; 96374; 99285; 36415; 93005; 83930; 80053; 80048; 82150; 83605 ×2; 83690; 83735; 85025 ×2; 81003; 80306; 71045; 70450; G0378 ×2; G0480; S4990 ×2; J2060 ×2; J3411; J1644; 80320

== ENCOUNTER 2022-03-10 15:49 | Inpatient (IN) | payer MEDICARE, OTHER ==
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
[2022-03-10] MEDS ORDERED: LORazepam 1 MG TAB PO STA (16:16)
[2022-03-10 16:44] LABS: Basophils # (A) 0.1 k/uL (0-0.2); Basophils % (A) 0 %; Eosinophils # (A) 0.1 k/uL (0-0.7); Eosinophils % (A) 1 %; HGB 12.2 gm/dL (13.0-17.5); Lymphocytes # (A) 1.9 k/uL (1.0-4.8); Lymphocytes % (A) 12 %; MCH 31.7 pg (25.0-35.0); MCHC 32.8 g/dL (31.0-37.0); MCV 96.5 fL (80.0-100.0); Mean Platelet Volume 7.1; Monocytes # (A) 0.9 k/uL (0-1.0); Monocytes % (A) 6 %; Neutrophils # (A) 12.7 k/uL (1.3-7.7); Neutrophils % (A) 81 %; Platelet Count 326 k/uL (150-450); RBC 3.84 m/uL (4.30-5.90); RDW 13.4 % (11.5-15.5); WBC 15.7 k/uL (3.8-10.6)
[2022-03-10 17:01] LABS: Appearance,Urine Clear (Clear); Bilirubin,Urine Negative (Negative); Blood,Urine Negative (Negative); Color,Urine Light Yellow; Glucose,Urine (UA) Negative (Negative); Ketones,Urine Negative (Negative); Leukocyte Esterase,Urine Negative (Negative); Nitrite,Urine Negative (Negative); Protein,Urine Negative (Negative); Specific Gravity,Urine 1.011 (1.001-1.035); Urobilinogen,Urine <2.0 mg/dL (<2.0)
--- NOTE | 2022-03-10 17:03 | XR ---
EXAMINATION TYPE: XR chest 2V DATE OF EXAM: 03/10/2022 COMPARISON: 03/08/2022 HISTORY: Pain TECHNIQUE: 2 views FINDINGS: Heart and mediastinum are normal. There is some mild infiltrate right lung base. No pleural effusion. There are no hilar masses. The bony thorax is intact. IMPRESSION: There is some mild right lower lobe pneumonia which is increased compared to recent exam.
[2022-03-10 17:06] LABS: Partial Thromboplastin Time 25.6 sec (22.0-30.0); Prothrombin Time 10.5 sec (9.0-12.0)
[2022-03-10 17:07] LABS: ALT 19 U/L (4-49); AST 32 U/L (17-59); African American GFR (CKD) >90 (>60 ml/min/1.73 sqM); Albumin 4.2 g/dL (3.5-5.0); Alkaline Phosphatase 107 U/L (38-126); Anion Gap 12 mmol/L; Blood Urea Nitrogen 11 mg/dL (9-20); Calcium 8.8 mg/dL (8.4-10.2); Carbon Dioxide 25 mmol/L (22-30); Chloride 98 mmol/L (98-107); Glucose 84 mg/dL (74-99); Lipase 19 U/L (23-300); Non-African American GFR(CKD) >90 (>60 ml/min/1.73 sqM); Potassium 4.1 mmol/L (3.5-5.1); Sodium 135 mmol/L (137-145); Total Bilirubin 0.3 mg/dL (0.2-1.3); Total Protein 7.6 g/dL (6.3-8.2)
[2022-03-10 17:10] LABS: Amphetamine Screen,Urine Not Detected (NotDetected); Barbiturate Screen,Urine Not Detected (NotDetected); Benzodiazepines Screen,Urine Detected (NotDetected); Cocaine Screen,Urine Not Detected (NotDetected); Methadone Screen, Urine Not Detected (NotDetected); Opiate Screen,Urine Not Detected (NotDetected); Oxycodone Screen, Urine Not Detected (NotDetected); Phencyclidine Screen,Urine Not Detected (NotDetected); Tricyclic Antidepressant,Urine Not Detected (NotDetected); Urn Cannabinoid Scrn Not Detected (NotDetected)
[2022-03-10 17:12] LABS: Alcohol 295 mg/dL
[2022-03-10] MEDS ORDERED: chlordiazePOXIDE 25 MG CAP PO PRN ×2 (17:47)
[2022-03-10] MEDS ORDERED: diphenhydrAMINE 50 MG/ML 1 ML VIAL IM STA (18:05)
[2022-03-10] MEDS ORDERED: FAMOTIDINE 20 MG/2 ML VIAL IV STA (18:09)
[2022-03-10] MEDS ORDERED: methylPREDNISolone SOD SUCCI 125 MG/2 ML VIAL IV STA (18:09)
[2022-03-10] MEDS ORDERED: diphenhydrAMINE 50 MG/ML 1 ML VIAL IVP STA (18:09)
[2022-03-10] MEDS ORDERED: cefTRIAXone IN SWFI 1,000 MG/10 ML SYRINGE IVP STA (18:11)
[2022-03-10] MEDS ORDERED: AZITHROMYCIN 500 MG in SODIUM CHLORIDE 0.9% 250 ML IVPB STA (18:11)
[2022-03-10] MEDS ORDERED: NALOXONE 0.4 MG/ML 1 ML VIAL IV PRN (18:14)
[2022-03-10] MEDS: chlordiazePOXIDE 25 MG CAP PO PRN (19:34)
[2022-03-10] MEDS ORDERED: LORazepam 2 MG/ML INJ IV STA (19:39)
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
[2022-03-10] MEDS ORDERED: LORazepam 1 MG/0.5 ML VIAL IV STA (22:07)
[2022-03-10] MEDS ORDERED: chlordiazePOXIDE 25 MG CAP PO ONE (22:15)
[2022-03-10] MEDS ORDERED: ZIPRASIDONE 20 MG VIAL IM ONE (22:15)
[2022-03-10] MEDS: SODIUM CHLORIDE 0.9% 1,000 ML IV SCH (22:30)
[2022-03-11] MEDS: chlordiazePOXIDE 25 MG CAP PO PRN ×3 (04:34→23:51)
[2022-03-11] MEDS: NON FORMULARY DRUG (Buprenorphine Hcl [Subutex] 8 MG Tab.Subl) SUBLINGUAL SCH ×3 (06:24→16:52)
[2022-03-11] MEDS: SODIUM CHLORIDE 0.9% 1,000 ML IV SCH ×3 (06:26→23:51)
[2022-03-11] MEDS: GABAPENTIN 300 MG CAP PO SCH ×3 (06:27→16:55)
[2022-03-11 08:22] LABS: Basophils # (A) 0.1 k/uL (0-0.2); Basophils % (A) 0 %; Eosinophils % (A) 0 %; HCT 39.8 % (39.0-53.0); Lymphocytes # (A) 1.8 k/uL (1.0-4.8); Lymphocytes % (A) 8 %; MCH 32.8 pg (25.0-35.0); MCHC 32.6 g/dL (31.0-37.0); MCV 100.5 fL (80.0-100.0); Macrocytosis Slight; Mean Platelet Volume 7.7; Monocytes # (A) 1.3 k/uL (0-1.0); Monocytes % (A) 6 %; Neutrophils # (A) 17.9 k/uL (1.3-7.7); Neutrophils % (A) 84 %; Platelet Count 285 k/uL (150-450); RBC 3.96 m/uL (4.30-5.90); RDW 13.9 % (11.5-15.5); WBC 21.3 k/uL (3.8-10.6)
--- NOTE | 2022-03-11 08:57 | XR ---
EXAMINATION TYPE: XR chest 1V portable DATE OF EXAM: 03/11/2022 8:49 AM COMPARISON: Chest radiographs from 03/10/2022. TECHNIQUE: XR chest 1V portable Portable AP radiograph of the chest. CLINICAL INDICATION:Male, 57 years old with history of pneumonia; FINDINGS: Lungs/Pleura: No pneumothorax or pleural effusion. Slight right basilar airspace opacities. Pulmonary vascularity: Unremarkable. Heart/mediastinum: Cardiomediastinal silhouette is unremarkable. Musculoskeletal: No acute osseous pathology. IMPRESSION: Slight improvement in right basilar airspace opacities.
--- NOTE | 2022-03-11 09:18 | CT ---
EXAMINATION TYPE: CT brain wo con CT DLP: 1094.4 mGycm, Automated exposure control for dose reduction was used. DATE OF EXAM: 03/11/2022 9:03 AM COMPARISON: Prior CT Brain from 03/08/2022 . CLINICAL INDICATION:Male, 57 years old with history of altered mental status, TECHNIQUE: Brain: Multiple axial CT images of the brain were obtained without IV contrast. FINDINGS: Brain: Extra-axial spaces: No abnormal extra-axial fluid collections. Ventricular system: Within normal limits Cerebral parenchyma: No acute intraparenchymal hemorrhage or mass effect. The sarabia-white junction is well differentiated. Encephalomalacia again demonstrated at the posterior left temporal lobe. Cerebellum: Unremarkable. Mass effect: No evidence of midline shift. Intracranial vasculature: Atherosclerotic calcifications of the intracranial vessels. Soft tissues: Normal. Calvarium/osseous structures: No depressed skull fracture. Paranasal sinuses and mastoid air cells: Mastoid air cells are clear. Unchanged lobular soft tissue w ithin the right fracture sinuses may represent polyp or mucous retention cyst. Additional mucosal thi ckening noted within the ethmoid air cells. Visualized orbits: Orbital contents are intact. IMPRESSION: No acute intracranial process. No significant change from prior examination.
[2022-03-11] MEDS: THIAMINE 100 MG TAB PO SCH (09:31)
[2022-03-11] MEDS: MULTIVITAMINS, THERA 1 EACH TAB PO SCH (09:31)
[2022-03-11] MEDS: RIVAROXABAN 2.5 MG TABLET PO SCH ×2 (09:31→20:54)
[2022-03-11] MEDS: AZITHROMYCIN 500 MG TAB PO SCH (09:31)
--- NOTE | 2022-03-11 10:49 | P.PN ---
Subjective Progress Note Date: 03/11/22 Patient is a 57-year-old male with known alcohol dependency and repeated hospitalizations for alcohol intoxication, prior DVT on blood thinners, and prior bipolar disorder who was petitioned by his outpatient rn case management after he was found with altered mentation. In the ER he underwent an extensive evaluation. He is on have a right lower lobe pneumonia with sepsis. He was also found to have intoxication. He was started on IV fluids and antibiotics. He was admitted for further monitoring. He did inadvertently eat some fish and suffer a food related ALLERGIC reaction. He received epinephrine, Benadryl, and Pepcid with complete resolution. Patient seen and examined at bedside. He is very lethargic this morning. He does awake to voice. He denies any chest pain or shortness of breath. He immediately falls asleep. General: nontoxic, no distress, appears older than stated age Derm: warm, dry Head: atraumatic, normocephalic, symmetric Eyes: EOMI, no lid lag, anicteric sclera Mouth: no lip lesion, mucus membranes moist Cardiovascular: S1S2 reg, no murmur, positive posterior tibial pulse bilateral, Lungs: Course bs bilateral, no rhonchi, no rales , no accessory muscle use Abdominal: soft, nontender to palpation, no guarding, no appreciable organomegaly Ext: no gross muscle atrophy, no edema, no contractures Neuro: CN II-XI grossly intact, no focal neuro deficits Psych: Lethargic, Flat affect Assessment/Plan: Pneumonia, suspect gram negative from aspiration with sepsis POA - continue with rocephin and zithromax at this time, if WBC increases again tomorrow consider change of antibiotcs - check Sputum culture and legionella urine antigen - follow CXR - Pulmonology hygiene Alcohol intoxication with impending withdrawal - CIWA, thiamine, folic acid - has been petitioned by outpatient community mental health porter sample case Nicotine dependency - cessation - nicotine replacement Food related ALLERGIC reaction - received epinephrine, Benadryl, and Pepcid with complete resolution. Patient with worsening WBC, continued lethargy, and mets sepsis criteria. Patient has failed observation for sepsis with worsening despite IV antibiotics and will be transitioned to inpatient. Objective - Vital Signs Vital signs: Vital Signs Temp 97.3 F L 03/11/22 03:05 Pulse 94 03/11/22 03:05 Resp 18 03/11/22 03:05 BP 143/84 03/11/22 03:05 Pulse Ox 94 L 03/11/22 03:05 FiO2 Intake & Output 03/10/22 03/11/22 03/11/22 18:59 06:59 18:59 Intake Total 118 Output Total 700 Balance -700 118 Weight 63.503 kg 63.503 kg Intake: Oral 118 Output: Urine 700 Other: Voiding Method Diaper External Catheter External Catheter - Labs CBC & Chem 7: 03/11/22 07:06 03/10/22 16:20 Labs: Abnormal Lab Results - Last 24 Hours (Table) 03/10/22 03/10/22 03/10/22 Range/Units 16:20 16:20 16:48 WBC 15.7 H (3.8-10.6) k/uL RBC 3.84 L (4.30-5.90) m/uL Hgb 12.2 L (13.0-17.5) gm/dL Hct 37.0 L (39.0-53.0) % MCV (80.0-100.0) fL Neutrophils # 12.7 H (1.3-7.7) k/uL Monocytes # (0-1.0) k/uL Sodium 135 L (137-145) mmol/L Creatinine 0.39 L (0.66-1.25) mg/dL Lipase 19 L (23-300) U/L U Benzodiazepines Scrn Detected H (NotDetected) Serum Alcohol 295 H* mg/dL 03/11/22 Range/Units 07:06 WBC 21.3 H (3.8-10.6) k/uL RBC 3.96 L (4.30-5.90) m/uL Hgb (13.0-17.5) gm/dL Hct (39.0-53.0) % MCV 100.5 H (80.0-100.0) fL Neutrophils # 17.9 H (1.3-7.7) k/uL Monocytes # 1.3 H (0-1.0) k/uL Sodium (137-145) mmol/L Creatinine (0.66-1.25) mg/dL Lipase (23-300) U/L U Benzodiazepines Scrn (NotDetected) Serum Alcohol mg/dL
[2022-03-11 13:50] LABS: African American GFR (CKD) >90 (>60 ml/min/1.73 sqM); Anion Gap 8 mmol/L; Blood Urea Nitrogen 12 mg/dL (9-20); Calcium 8.7 mg/dL (8.4-10.2); Carbon Dioxide 24 mmol/L (22-30); Chloride 102 mmol/L (98-107); Glucose 82 mg/dL (74-99); Non-African American GFR(CKD) >90 (>60 ml/min/1.73 sqM); Sodium 134 mmol/L (137-145)
[2022-03-11 13:57] LABS: Potassium 4.9 mmol/L (3.5-5.1)
[2022-03-11] MEDS ORDERED: chlordiazePOXIDE 25 MG CAP PO STA (20:26)
[2022-03-12] MEDS: SODIUM CHLORIDE 0.9% 1,000 ML IV SCH ×2 (04:10→11:29)
[2022-03-12] MEDS: chlordiazePOXIDE 25 MG CAP PO PRN (04:29)
[2022-03-12] MEDS: NON FORMULARY DRUG (Buprenorphine Hcl [Subutex] 8 MG Tab.Subl) SUBLINGUAL SCH ×3 (06:33→18:27)
[2022-03-12] MEDS: GABAPENTIN 300 MG CAP PO SCH ×3 (06:44→18:27)
--- NOTE | 2022-03-12 06:57 | XR ---
EXAMINATION TYPE: XR chest 1V portable DATE OF EXAM: 03/12/2022 5:48 AM COMPARISON: Chest radiographs from 03/11/2022. TECHNIQUE: XR chest 1V portable Frontal view of the chest. CLINICAL INDICATION:Male, 57 years old with history of pneumonia; FINDINGS: Lungs/Pleura: No pneumothorax or pleural effusion. Increased right basilar airspace opacities. Elevat ion of the left hemidiaphragm with associated atelectasis. Pulmonary vascularity: Unremarkable. Heart/mediastinum: Cardiomediastinal silhouette is unremarkable. Musculoskeletal: No acute osseous pathology. IMPRESSION: Slight improvement in right basilar airspace opacities. IMPRESSION: Worsening right basilar airspace opacities.
[2022-03-12 07:22] LABS: HCT 34.9 % (39.0-53.0); HGB 11.2 gm/dL (13.0-17.5); MCH 31.9 pg (25.0-35.0); MCHC 32.1 g/dL (31.0-37.0); MCV 99.1 fL (80.0-100.0); Mean Platelet Volume 7.9; Platelet Count 255 k/uL (150-450); RBC 3.52 m/uL (4.30-5.90); RDW 13.2 % (11.5-15.5); WBC 14.4 k/uL (3.8-10.6)
[2022-03-12 07:47] LABS: ALT 17 U/L (4-49); AST 24 U/L (17-59); African American GFR (CKD) >90 (>60 ml/min/1.73 sqM); Albumin 2.9 g/dL (3.5-5.0); Alkaline Phosphatase 93 U/L (38-126); Anion Gap 3 mmol/L; Blood Urea Nitrogen 15 mg/dL (9-20); Carbon Dioxide 29 mmol/L (22-30); Chloride 106 mmol/L (98-107); Glucose 126 mg/dL (74-99); Magnesium 1.8 mg/dL (1.6-2.3); Non-African American GFR(CKD) >90 (>60 ml/min/1.73 sqM); Phosphorus 2.5 mg/dL (2.5-4.5); Potassium 4.1 mmol/L (3.5-5.1); Sodium 138 mmol/L (137-145); Total Bilirubin 0.2 mg/dL (0.2-1.3); Total Protein 5.7 g/dL (6.3-8.2)
[2022-03-12] MEDS ORDERED: chlordiazePOXIDE 25 MG CAP PO PRN ×3 (08:47)
[2022-03-12] MEDS ORDERED: FOLIC ACID 1 MG TAB PO SCH (09:00)
[2022-03-12] MEDS: THIAMINE 100 MG TAB PO SCH (09:55)
[2022-03-12] MEDS: MULTIVITAMINS, THERA 1 EACH TAB PO SCH (09:55)
[2022-03-12] MEDS: AZITHROMYCIN 500 MG TAB PO SCH (09:55)
[2022-03-12] MEDS: RIVAROXABAN 2.5 MG TABLET PO SCH ×2 (09:55→20:33)
--- NOTE | 2022-03-12 10:46 | P.PN ---
Subjective Progress Note Date: 03/12/22 (delayed charting seen at 0845) Principal diagnosis: Inebriated Patient is a 57-year-old male with known alcohol dependency and repeated hospitalizations for alcohol intoxication, prior DVT on blood thinners, and prior bipolar disorder who was petitioned by his outpatient corrections caseworker after he was found with altered mentation. In the ER he underwent an extensive chalo luation. He is on have a right lower lobe pneumonia with sepsis. He was also found to have intoxication. He was started on IV fluids and antibiotics. He was admitted for further monitoring. He did inadvertently eat some fish and suffer a food related ALLERGIC reaction. He received epinephrine, Benadryl, and Pepcid with complete resolution. Patient seen and examined at bedside. He denies having any problems. He argues with me that he does not have pneumonia. He wants to go home. I discussed with him that he needs to be seen by psych for he can be cleared for discharge as he has been petitioned by his community mental health charge hand. Continues to deny that alcoholism is a problem for him since he functions well at home. Per nursing he has been asking for Ativan continuously without any objective signs of withdrawal. He has required several doses of Librium though his requi rements have decreased overall. General: nontoxic, no distress, appears older than stated age Derm: warm, dry Head: atraumatic, normocephalic, symmetric Eyes: EOMI, no lid lag, anicteric sclera Mouth: no lip lesion, mucus membranes moist Cardiovascular: S1S2 reg, no murmur, positive posterior tibial pulse bilateral, Lungs: Course bs bilateral, no rhonchi, no rales , no accessory muscle use Abdominal: soft, nontender to palpation, no guarding, no appreciable organomegaly Ext: no gross muscle atrophy, no edema, no contractures Neuro: CN II-XI grossly intact, no focal neuro deficits Psych: Lethargic, Flat affect Assessment/Plan: Pneumonia, suspect gram negative from aspiration with sepsis POA - continue with rocephin and zithromax at this time, if WBC increases again tomorrow consider change of antibiotcs - improving no need for sputum culture as improving on current antibiotics. - follow CXR - Pulmonary hygiene Alcohol intoxication with impending withdrawal - CIWA, thiamine, folic acid - has been petitioned by outpatient community mental health director of casework Nicotine dependency - cessation - nicotine replacement Food related ALLERGIC reaction - received epinephrine, Benadryl, and Pepcid with complete resolution. Patient will need to continue with antibiotics to complete a total of 5 days of treatment for his pneumonia. His sepsis is better. White blood cell count is normalizing. Need to ensure that patient is able to continue antibiotics until white blood cell count normalizes. Should he need inpatient mental health treatment where we are able to monitor his medications he is stable to transition to this environment where antibiotics will be continued. Should he not need mental health inpatient treatment I would observe patient 1 more day to ensure that his white blood cell count normalizes before discharge as I am worried he will not take his medications appropriately upon discharge due to his alcoholism. Objective - Vital Signs Vital signs: Vital Signs Temp 98.2 F 03/12/22 04:05 Pulse 94 03/12/22 04:05 Resp 20 03/12/22 04:05 BP 108/67 03/12/22 04:05 Pulse Ox 94 L 03/12/22 04:05 FiO2 Intake & Output 03/11/22 03/12/22 03/12/22 18:59 06:59 18:59 Intake Total 1063 360 Output Total 675 600 Balance 388 -600 360 Intake: Intake, IV Titration 585 Amount Sodium Chloride 0.9% 1, 585 000 ml @ 130 mls/hr IV . [id number] [facility] Rx#:[id number] Oral 478 360 Output: Urine 675 600 Other: Voiding Method External Catheter External Catheter - Labs CBC & Chem 7: 03/12/22 06:50 03/12/22 06:50 Labs: Abnormal Lab Results - Last 24 Hours (Table) 03/11/22 03/12/22 03/12/22 Range/Units 07:06 06:50 06:50 WBC 14.4 H (3.8-10.6) k/uL RBC 3.52 L (4.30-5.90) m/uL Hgb 11.2 L (13.0-17.5) gm/dL Hct 34.9 L (39.0-53.0) % Sodium 134 L (137-145) mmol/L Creatinine 0.40 L 0.38 L (0.66-1.25) mg/dL Glucose 126 H (74-99) mg/dL Calcium 8.0 L (8.4-10.2) mg/dL Total Protein 5.7 L (6.3-8.2) g/dL Albumin 2.9 L (3.5-5.0) g/dL Microbiology - Last 24 Hours (Table) 03/10/22 19:43 Blood Culture - Preliminary Blood No Growth after 24 hours
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
--- NOTE | 2022-03-12 15:27 | P.DS ---
Providers Date of admission: 03/10/22 18:14 Expected date of discharge: 03/12/22 Attending physician: Batsheva Cintron DO Consults: 03/10/22 18:14 Consult Physician Urgent Consulting Provider: Ermias Aguilar Reason/Comments: petitioned Do you want consulting provider notified?: Yes Primary care physician: Basil Srinivasan MD Hospital Course: Discharge Diagnosis: Pneumonia, suspect gram negative from aspiration with sepsis POA- now improved Alcohol intoxication with mild withdrawal Nicotine dependency Food related ALLERGIC reaction, resolved Hospital Course: Patient is a 57-year-old male with known alcohol dependency and repeated hospitalizations for alcohol intoxication, prior DVT on blood thinners, and prior bipolar disorder who was petitioned by his outpatient case finisher after he was found with altered mentation. In the ER he underwent an extensive evaluation. He is on have a right lower lobe pneumonia with sepsis. He was also found to have intoxication. He was started on IV fluids and antibiotics. He was admitted for further monitoring. He did inadvertently eat some fish and suffer a food related ALLERGIC reaction. He received epinephrine, Benadryl, and Pepcid with complete resolution. He continued to improve. Fevers and WBC abated. His librium requirements were decreasing. He was seen by psych who did recommend transfer to inpatient mental health unit. He was determined stable for discharge to mental health. Patient will call to have subutex brought in for use in MHU. He will complete an oral dose of antibiotics. Patient seen and examined at bedside. Agitated, denies having pneumonia though we talked about this before. He has no complaints at the time of my evaluation. He denies that his drinking is not a problem, he does not think that he needs to see psych he just wants to go home and conitnue to drink as he functions fine at home. Vital signs reviewed and stable. General: nontoxic, no distress, appears at stated age Derm: warm, dry Head: atraumatic, normocephalic, symmetric Eyes: EOMI, no lid lag, anicteric sclera Mouth: no lip lesion, mucus membranes moist Cardiovascular: S1S2 reg, no murmur, positive posterior tibial pulse bilateral, Lungs: Course bs bilateral, no rhonchi, no rales , no accessory muscle use Abdominal: soft, nontender to palpation, no guarding, no appreciable organomegaly Ext: no gross muscle atrophy, no edema, no contractures Neuro: CN II-XI grossly intact, no focal neuro deficits Psych: Alert, oriented, appropriate affect A total of 37 minutes of time were spent preparing this complex discharge summary. Patient was discharged on 03/12/22. Patient Condition at Discharge: Stable Plan - Discharge Summary Discharge Rx Participant: No New Discharge Prescriptions: New RX: Folic Acid 1 mg PO DAILY tab RX: chlordiazePOXIDE HCl [Librium] 10 mg PO Q4H PRN cap PRN Reason: CIWA 4 to 5 RX: chlordiazePOXIDE HCl [Librium] 75 mg PO Q4H PRN cap PRN Reason: CIWA 10 or higher RX: chlordiazePOXIDE HCl [Librium] 25 mg PO Q4H PRN cap PRN Reason: CIWA 6 to 7 RX: chlordiazePOXIDE HCl [Librium] 50 mg PO Q4H PRN cap PRN Reason: Ciwa 8 Or 9 RX: Thiamine [Vitamin B-1] 100 mg PO DAILY tab Amoxic-Pot Clav 875-125Mg [Augmentin 875-125] 1 tab PO BID 1 Days #2 tab RX: Azithromycin [Zithromax] 500 mg PO DAILY 1 Days tab Continue RX: buprenorphine HCL [Subutex] 8 mg SL AC-TID RX: Gabapentin 600 mg PO TID-W/MEALS RX: Rivaroxaban [Xarelto] 2.5 mg PO BID RX: Baclofen [Lioresal] 20 mg PO ACHS RX: Multivitamins, Thera [Multivitamin (formulary)] 1 tab PO DAILY RX: Ferrous Sulfate [Iron (65 MG Elemental)] 325 mg PO DAILY Discontinued RX: Butalb/APAP/Caff 50-325-40Mg [Fioricet 50-325-40] 1 tab PO Q4-6H PRN PRN Reason: Migraine Headache Discharge Medication List RX: buprenorphine HCL [Subutex] 8 mg SL AC-TID 04/27/19 [History] RX: Baclofen [Lioresal] 20 mg PO ACHS 12/15/21 [History] RX: Gabapentin 600 mg PO TID-W/MEALS 12/15/21 [History] RX: Rivaroxaban [Xarelto] 2.5 mg PO BID 12/15/21 [History] RX: Ferrous Sulfate [Iron (65 MG Elemental)] 325 mg PO DAILY 01/01/22 [History] RX: Multivitamins, Thera [Multivitamin (formulary)] 1 tab PO DAILY 01/01/22 [History] Amoxic-Pot Clav 875-125Mg [Augmentin 875-125] 1 tab PO BID 1 Days #2 tab 03/12/22 [Rx] RX: Azithromycin [Zithromax] 500 mg PO DAILY 1 Days tab 03/12/22 [Rx] RX: Folic Acid 1 mg PO DAILY tab 03/12/22 [Rx] RX: Thiamine [Vitamin B-1] 100 mg PO DAILY tab 03/12/22 [Rx] RX: chlordiazePOXIDE HCl [Librium] 10 mg PO Q4H PRN cap 03/12/22 [Rx] RX: chlordiazePOXIDE HCl [Librium] 25 mg PO Q4H PRN cap 03/12/22 [Rx] RX: chlordiazePOXIDE HCl [Librium] 50 mg PO Q4H PRN cap 03/12/22 [Rx] RX: chlordiazePOXIDE HCl [Librium] 75 mg PO Q4H PRN cap 03/12/22 [Rx] Follow up Appointment(s)/Referral(s): Basil Srinivasan MD [Primary Care Provider] - 1-2 days Activity/Diet/Wound Care/Special Instructions: Activity: as tolerated Diet: heart healthy Special Instructions: Patient requests Ativan frequently, even when not experiencing objective withdrawal symptoms I do recommended continuing with Librium for alcohol withdrawal. 1 more day of zithromax and 2 additional days of Augmentin for p neumonia treatment. Discharge Disposition: TRANSFER TO PSYCH HOSP/UNIT
[2022-03-12] MEDS: BACLOFEN 10 MG TAB PO SCH ×3 (15:38→20:33)
[2022-03-12] MEDS ORDERED: NICOTINE 21MG/24HR PATCH TRANSDERM SCH (18:15)
[2022-03-12 22:09] VITALS: TEMP 98.6
[2022-03-13 00:29] VITALS: BP 123/78; PULSE 89; RESP 18
[2022-03-13] MEDS: SODIUM CHLORIDE 0.9% 1,000 ML IV SCH (02:33)
== END 2022-03-13 03:38 | DRG 871 ==
LOC: EC 15:49 → 3SCARD 18:14 → OBSVTOIN 03-11 10:37 → UNDODISOB 03-13 03:38
PROVIDERS: ADMIT Internal Medicine; ATTEND Internal Medicine
PROC: HZ2ZZZZ Detoxification Services for Substance Abuse Treatment (ICD-10-PCS; principal; 2022-03-11)
DX: A41.50 Gram-negative sepsis, unspecified (principal); G93.41 Metabolic encephalopathy; J69.0 Pneumonitis due to inhalation of food and vomit; J15.6 Pneumonia due to other Gram-negative bacteria; E46 Unspecified protein-calorie malnutrition; E87.1 Hypo-osmolality and hyponatremia; F10.239 Alcohol dependence with withdrawal, unspecified; Z20.822 Contact with and (suspected) exposure to COVID-19; Z68.20 Body mass index [BMI] 20.0-20.9, adult; T78.1XXA Other adverse food reactions, not elsewhere classified, initial encounter; K58.9 Irritable bowel syndrome, unspecified; M41.9 Scoliosis, unspecified; D64.9 Anemia, unspecified; F10.229 Alcohol dependence with intoxication, unspecified; F20.9 Schizophrenia, unspecified; F31.9 Bipolar disorder, unspecified; F41.9 Anxiety disorder, unspecified; F90.9 Attention-deficit hyperactivity disorder, unspecified type; Y90.8 Blood alcohol level of 240 mg/100 ml or more; Z79.01 Long term (current) use of anticoagulants; Z80.3 Family history of malignant neoplasm of breast; Z82.41 Family history of sudden cardiac death; Z82.49 Family history of ischemic heart disease and other diseases of the circulatory system; Z86.718 Personal history of other venous thrombosis and embolism; Z91.013 Allergy to seafood; Z88.6 Allergy status to analgesic agent; Z87.828 Personal history of other (healed) physical injury and trauma
CPT/HCPCS: 36415; 70450; 71045; 71046; 80048; 80053; 80306; 80320; 81003; 82140; 83690; 83735; 84100; 84484; 85025; 85027; 85610; 85730; 87040; 87502; 87635; 93005; 96372; 96374; 96375; 99285

== ENCOUNTER 2022-03-13 02:20 | Inpatient (IN) | payer MEDICARE, MEDICAID ==
[2022-03-13] MEDS ORDERED: MAGNESIUM HYDROXIDE 2,400 MG/10 ML CUP PO PRN (02:46)
[2022-03-13] MEDS ORDERED: MAG HYDROX/AL HYDROX/SIMETH 30 ML CUP PO PRN (02:46)
[2022-03-13] MEDS ORDERED: HALOPERIDOL LACTATE 5 MG/ML 1 ML VIAL IM PRN (02:56)
[2022-03-13] MEDS ORDERED: LORazepam 1 MG/0.5 ML VIAL IM PRN (02:58)
[2022-03-13] MEDS: LORazepam 1 MG TAB PO PRN ×5 (03:49→23:57)
[2022-03-13] MEDS: haloperidoL 5 MG TAB PO PRN ×2 (04:23→10:20)
[2022-03-13] MEDS: FOLIC ACID 1 MG TAB PO SCH (09:31)
[2022-03-13] MEDS: NICOTINE 14MG/24HR PATCH TRANSDERM SCH (09:31)
[2022-03-13] MEDS: GABAPENTIN 300 MG CAP PO SCH ×3 (09:31→16:44)
[2022-03-13] MEDS: NON FORMULARY DRUG (Buprenorphine Hcl [Subutex] 8 MG Tab.Subl) SUBLINGUAL SCH ×3 (09:31→16:44)
[2022-03-13] MEDS: THIAMINE 100 MG TAB PO SCH (09:32)
[2022-03-13] MEDS: AZITHROMYCIN 500 MG TAB PO SCH (09:32)
[2022-03-13] MEDS: FERROUS SULFATE 325 MG TAB PO SCH (09:32)
[2022-03-13] MEDS: AMOXIC-POT CLAV 875-125MG 1 EACH TAB PO SCH ×2 (09:32→20:55)
[2022-03-13] MEDS: BACLOFEN 10 MG TAB PO SCH ×2 (09:32→13:53)
[2022-03-13] MEDS: MULTIVITAMINS, THERA 1 EACH TAB PO SCH (09:33)
[2022-03-13] MEDS: RIVAROXABAN 2.5 MG TABLET PO SCH ×2 (09:58→20:56)
[2022-03-13] MEDS: ACETAMINOPHEN TAB 325 MG TAB PO PRN ×2 (10:17→17:45)
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
[2022-03-13] MEDS ORDERED: LORazepam 2 MG/ML INJ IM PRN (18:03)
[2022-03-13] MEDS ORDERED: HYDROcodone/APAP 5-325MG 1 EACH TAB PO STA (20:01)
[2022-03-14] MEDS: ACETAMINOPHEN TAB 325 MG TAB PO PRN ×2 (02:09→11:07)
[2022-03-14] MEDS: haloperidoL 5 MG TAB PO PRN (02:09)
[2022-03-14 02:13] VITALS: BP 123/82; PULSE 104; RESP 14; TEMP 97.7
[2022-03-14] MEDS: LORazepam 1 MG TAB PO PRN ×3 (03:57→09:57)
[2022-03-14] MEDS: NICOTINE 14MG/24HR PATCH TRANSDERM SCH (08:51)
[2022-03-14] MEDS: GABAPENTIN 300 MG CAP PO SCH (08:52)
[2022-03-14] MEDS: FOLIC ACID 1 MG TAB PO SCH (08:53)
[2022-03-14] MEDS: RIVAROXABAN 2.5 MG TABLET PO SCH (08:53)
[2022-03-14] MEDS: MULTIVITAMINS, THERA 1 EACH TAB PO SCH (08:53)
[2022-03-14] MEDS: AMOXIC-POT CLAV 875-125MG 1 EACH TAB PO SCH (08:53)
[2022-03-14] MEDS: THIAMINE 100 MG TAB PO SCH (08:53)
[2022-03-14] MEDS: AZITHROMYCIN 500 MG TAB PO SCH (08:53)
[2022-03-14] MEDS: FERROUS SULFATE 325 MG TAB PO SCH (08:53)
[2022-03-14] MEDS: NON FORMULARY DRUG (Buprenorphine Hcl [Subutex] 8 MG Tab.Subl) SUBLINGUAL SCH ×2 (08:54→11:06)
--- NOTE | 2022-03-14 13:38 | P.DS ---
Providers Date of admission: 03/13/22 03:45 Expected date of discharge: 03/14/22 Attending physician: Ermias Aguilar MD Consults: 03/13/22 02:46 Consult Physician Routine Consulting Provider: Kevin Savage Consult Reason/Comments: History and physical Do you want consulting provider notified?: Yes, Notify in am Primary care physician: Basil Srinivasan MD - Discharge Diagnosis(es) (1) Alcohol-induced depressive disorder with moderate or severe use disorder Status: Acute Priority: High (2) Alcohol use disorder Status: Chronic Priority: Medium (3) Tobacco use disorder Status: Chronic Priority: Medium Hospital Course: Admission HPI: Patient is a single, unemployed, 57-year-old male with significant history of alcohol use disorder and polysubstance abuse presenting to the hospital under petition and certification by his returned case inspector for an inability to care for himself. Patient presented to the hospital on 03/13/2022, brought in under petition and certification by his returned case inspector Chava Franklin for an inability to care for himself. As repetition "Mynor could not stand on his own without falling, he is incoherent, cigarette janina falling onto the carpet. Would've fallen off the deck without returned case inspector and transportation maintenance operator present. Unable to meet basic needs, unsafe to be by himself in his apartment complex." It is noted that the patient was intoxicated when last assessed on 03/10/2022 with a serum alcohol of 295. Patient has been intimately agitated on our psychiatric unit and has been yelling profanities and expressing that he is not treated well. The patient was administered Haldol and Ativan and was sedated this morning. This afternoon however, the patient is much more cooperative with treatment. He expresses that he is confused as to why he was admitted to the psychiatric unit. He is scheduled by his returned case inspector to go to [facility] for rehabilitation on Sunday however the patient vehemently denies any desire to go to rehab. In regards to psychotic symptoms, the patient is denying any auditory or visual hallucinations. He is denying any suicidal or homicidal ideation, intention, and/or plan. He is not reporting any significant symptoms of kiki. He reports no increased goal-directed activity, excessive energy, or grandiosity. The patient just expresses a desire to be discharged. The patient has a significant history of substance abuse however downplays his substance use history to this provider. He reports that he drinks on occasion despite more than 10 admissions this year to this hospital related to his alcohol use disorder. Patient states that he has no psychiatric issues. The patient is not on any psychiatric medications aside from gabapentin. He has one psychiatric hospitalization in 2013. The patient has a returned case inspector. Patient denies any history of suicide attempts in the past. Hospital course: Upon admission to the unit patient was initially presenting as obstinate, irritable, and uncooperative. Patient was however directable and agreeable to commence treatment. Patient got along well with other patients on the unit and followed unit protocol. Patient was compliant with the medications and denied any side effects throughout hospital course. Patient was started on CIWA protocol for alcohol withdrawal. Furthermore as per patient preference, his baclofen was held as he felt that he was being overly medicated which was causing him to feel more slow. The patient's primary reason for admission appeared to be his inability to care for himself are the patient was unable to care for himself due to his constant state of intoxication. The patient is a known alcoholic although he displays poor insight as to how severe his alcoholism is. The patient was informed that he has had more than ten hospitalizations in relation to his alcoholism over the past 3 months. However, the patient reports that he does not believe his alcoholism is "that bad" as he reports he continues to cut down his use. During this hospitalization, the patient displayed inability to care for himself as made evident by his ability to address his hygiene and grooming, showering, eating his meals, and communicating up properly with staff. The patient was initially scheduled to go to rehab on 03/15/2022 however is refusing to go there at this time. On the day of discharge, the patient is not reporting any suicidal or homicidal ideation, intention, and/or plan. He is not reporting any auditory or visual hallucinations. He denies any paranoia or other delusions. The patient has been cooperative with staff and peers and has been redirectable. He was also examined by the medical team for history and physical examination. As the pat ient's primary diagnosis is alcohol use disorder, the patient does not meet criteria for continued inpatient psychiatric admission. He displays an ability care for himself when sober. The patient has been subsequently discharged. Mental status exam: General Appearance: Patient appears to be stated age is alert and cooperative. Patient is in no acute distress and has fair hygiene and grooming Behavior: Patient is calmly seated without any agitated behavior. Speech: Patient's speech is fluent and nonpressured. Mood/Affect: Patient reports their mood is "feeling ready to go", affect is congruent and euthymic. Suicidality/Homicidality: Patient denies having any suicidal or homicidal ideation intent or plan. Perceptions: Patient denies any auditory or visual hallucinations. Though content/process: There is no evidence of any delusional thought content and thought process is linear and goal-directed. Memory and concentration: AOX3, grossly intact for the purposes of this session. Can spell "WORLD" backwards correctly. Judgment and insight: Improved with guarded prognosis Impression: Depression secondary to alcohol use Alcohol use disorder Tobacco use disorder Plan: -Continue with discharge today as patient has improved and stabilized psychiatrically and is not currently an imminent threat to himself and/or others. Patient will remain at chronically elevated risk for harm to self and/or others due to his heavy alcohol abuse. It is recommended that APS become involved if the patient displays an inability to care for himself secondary to his heavy alcohol abuse. -Continue medications: Folic acid, multivitamin, thiamine, for alcohol use disorder Patient will be continued with his antibiotic regimen Habitrol patches for nicotine cessation -Patient was counseled on the need for medication compliance and appropriate follow-up at mental health and also primary care for medical issues. Patient verbalized understanding and agreed. -Social work to arrange for and conduct family meeting to ensure safety upon discharge and answer any questions/concerns Social work also to arrange for patients follow up appointments for psychiatric care along with follow up with primary care provider. -Patient counseled on abstaining from recreational drugs and marijuana and alcohol. Was informed/educated on the adverse effects on their physical and mental health. Patient verbally agreed and understood however is precontemplative regarding alcohol. Patient was offered substance abuse treatment however declined at this time. -Patient was instructed to return to the hospital or seek immediate medical care if their psychiatric or medical symptoms do worsen or reoccur. -Psychoeducation and supportive therapy provided to patient. Risks and benefits of pharmacological treatment versus the risks and benefits of nontreatment weight and discussed. Informed consent discussion held. Common side effects of psychotropics discussed such as, but not limited to headache, GI disturbance, sexual dysfunction, movement disorders, sedation, and orthostatic hypotension. Life threatening and blackbox warnings of prescribed medications also discussed. Potential risks of operating a vehicle or heavy machinery discussed with patient at length. Advised on importance of compliance and a reliable and responsible manner. Patient advised to review FDA consumer labeling of all medications prior to taking. Patient verbalized understanding of potential risks, and agrees with current treatment plan. Patient advised to medically contact physician/emergency personnel if any acute changes in condition occur. Vital Signs Temp 97.7 F 03/14/22 02:12 Pulse 104 H 03/14/22 02:12 Resp 14 03/14/22 02:12 BP 123/82 03/14/22 02:12 Pulse Ox 93 L 03/13/22 03:49 FiO2 Allergies Allergy/AdvReac Type Severity Reaction Status Date / Time Fish Containing Products Allergy Anaphylaxis Verified 03/10/22 23:22 [Fish] ibuprofen [From Motrin] AdvReac Nausea & Verified 02/03/22 08:50 Vomiting Patient Condition at Discharge: Stable Plan - Discharge Summary Discharge Rx Participant: No New Discharge Prescriptions: New Folic Acid 1 mg PO DAILY 30 Days tab Nicotine 14Mg/24Hr Patch [Habitrol] 1 patch TRANSDERM DAILY 30 Days patch Multivitamins, Thera [Multivitamin (formulary)] 1 each PO DAILY 30 Days tab Azithromycin [Zithromax] 500 mg PO DAILY 2 Days #2 tab Amoxic-Pot Clav 875-125Mg [Augmentin 875-125] 1 each PO HS #1 tab Thiamine [Vitamin B-1] 100 mg PO DAILY 30 Days tab Continue buprenorphine HCL [Subutex] 8 mg SL AC-TID Gabapentin 600 mg PO TID-W/MEALS Rivaroxaban [Xarelto] 2.5 mg PO BID Ferrous Sulfate [Iron (65 MG Elemental)] 325 mg PO DAILY Discontinued Folic Acid 1 mg PO DAILY tab chlordiazePOXIDE HCl [Librium] 10 mg PO Q4H PRN cap PRN Reason: CIWA 4 to 5 chlordiazePOXIDE HCl [Librium] 75 mg PO Q4H PRN cap PRN Reason: CIWA 10 or higher chlordiazePOXIDE HCl [Librium] 25 mg PO Q4H PRN cap PRN Reason: CIWA 6 to 7 chlordiazePOXIDE HCl [Librium] 50 mg PO Q4H PRN cap PRN Reason: Ciwa 8 Or 9 Thiamine [Vitamin B-1] 100 mg PO DAILY tab Baclofen [Lioresal] 20 mg PO ACHS Multivitamins, Thera [Multivitamin (formulary)] 1 tab PO DAILY Amoxic-Pot Clav 875-125Mg [Augmentin 875-125] 1 tab PO BID 1 Days #2 tab Azithromycin [Zithromax] 500 mg PO DAILY 1 Days tab Discharge Medication List buprenorphine HCL [Subutex] 8 mg SL AC-TID 04/27/19 [History] Gabapentin 600 mg PO TID-W/MEALS 12/15/21 [History] Rivaroxaban [Xarelto] 2.5 mg PO BID 12/15/21 [History] Ferrous Sulfate [Iron (65 MG Elemental)] 325 mg PO DAILY 01/01/22 [History] Amoxic-Pot Clav 875-125Mg [Augmentin 875-125] 1 each PO HS #1 tab 03/14/22 [Rx] Azithromycin [Zithromax] 500 mg PO DAILY 2 Days #2 tab 03/14/22 [Rx] Folic Acid 1 mg PO DAILY 30 Days tab 03/14/22 [Rx] Multivitamins, Thera [Multivitamin (formulary)] 1 each PO DAILY 30 Days tab 03/14/22 [Rx] Nicotine 14Mg/24Hr Patch [Habitrol] 1 patch TRANSDERM DAILY 30 Days patch 03/14/22 [Rx] Thiamine [Vitamin B-1] 100 mg PO DAILY 30 Days tab 03/14/22 [Rx] Follow up Appointment(s)/Referral(s): [facility] [Outside] - 03/15/22 10:00 am (03/15 @ 10:00-11:00 with Chava Franklin 03/16 @ 10:30-11:00 with Sonal Hayes ) [facility] [NON-STAFF] - 1 Week Patient Instructions/Handouts: How to Stop Smoking (DC), Insomnia (DC), Anxiety (ED) Activity/Diet/Wound Care/Special Instructions: Avoid the use of street drugs and alcohol. Take all prescriptions as prescribed. When you are in need of refills on your medications, please contact your medical provider and/or outpatient psychiatrist to have this done. Please go to scheduled outpatient appointment for aftercare treatment. If symptoms return or become worse, call the crisis line at and/or go to the nearest emergency room for evaluation. Discharge Disposition: HOME SELF-CARE
== END 2022-03-14 12:19 | disposition home or self-care (01) | DRG 896 ==
LOC: 3MHU 03:45
PROVIDERS: ADMIT Psychiatry & Neurology Psychiatry; ATTEND Psychiatry & Neurology Psychiatry
PROC: HZ2ZZZZ Detoxification Services for Substance Abuse Treatment (ICD-10-PCS; principal; 2022-03-13)
DX: F10.239 Alcohol dependence with withdrawal, unspecified (principal); J69.0 Pneumonitis due to inhalation of food and vomit; R45.851 Suicidal ideations; F10.24 Alcohol dependence with alcohol-induced mood disorder; F17.210 Nicotine dependence, cigarettes, uncomplicated; F20.9 Schizophrenia, unspecified; F31.9 Bipolar disorder, unspecified; F41.9 Anxiety disorder, unspecified; F90.9 Attention-deficit hyperactivity disorder, unspecified type; K58.9 Irritable bowel syndrome, unspecified; M41.9 Scoliosis, unspecified; Z88.6 Allergy status to analgesic agent; Z91.013 Allergy to seafood; Z87.01 Personal history of pneumonia (recurrent); G62.9 Polyneuropathy, unspecified; Z87.828 Personal history of other (healed) physical injury and trauma; Z86.14 Personal history of Methicillin resistant Staphylococcus aureus infection; Z71.6 Tobacco abuse counseling
CPT/HCPCS: 36415; 80048; 80053; 80306; 80320; 81003; 82140; 83690; 83735; 84100; 84484; 85025; 85027; 85610; 85730; 87040; 87502; 87635

== ENCOUNTER 2022-03-15 23:34 | Emergency (ER) | payer MEDICARE, OTHER ==
[2022-03-16] VITALS: BP 121/86; PULSE 101; RESP 16; TEMP 98.3
== END 2022-03-16 02:43 | disposition left against medical advice (07) ==
LOC: EC 23:34
DX: Z53.21 Procedure and treatment not carried out due to patient leaving prior to being seen by health care provider (principal)
CPT/HCPCS: 99499

== ENCOUNTER 2022-04-04 08:40 | Day surgery (SDC) | payer MEDICARE, OTHER ==
[2022-04-04] MEDS ORDERED: LIDOCAINE 1% (10MG/ML) FOR IV START INTRADERMA PRN (08:50)
[2022-04-04] MEDS ORDERED: LACTATED RINGERS 1,000 ML IV SCH (08:50)
[2022-04-04 09:00] VITALS: RESP 16; TEMP 97.6
[2022-04-04] MEDS ORDERED: MIDAZOLAM 2 MG/2 ML VIAL ONE (09:24)
[2022-04-04] MEDS ORDERED: IOPAMIDOL M200 10 ML VIAL ONE (09:24)
[2022-04-04] MEDS ORDERED: fentaNYL (PF) 50 MCG/ML 2 ML AMP ONE (09:24)
[2022-04-04] MEDS ORDERED: methylPREDNISolone ACETATE 80 MG/ML 1 ML VIAL ONE (09:24)
--- NOTE | 2022-04-04 09:35 | P.PCN ---
Date of Procedure: 04/04/22 Procedure(s) Performed: PREOPERATIVE DIAGNOSIS: 1- Lumbar Degenerative Disc Diseases 2-Lumbar spondylosis with Facet arthropathy without myelopathy POSTOPERATIVE DIAGNOSIS: Same as preop diagnosis. PROCEDURE 1. Lumbar epidural steroid injection under fluoroscopic guidance at the L5-S1 level. (Fluoroscopy imaging was available in radiology department) 2. Lumbar epidurogram. ANESTHESIA: moderate sedation with intravenous Versed 2 mg ,and fentanyle 100 Mcg Sedation start time : 09:27 Sedation end time :09:32 EBL: Minimal PROCEDURE INDICATION: The patient with low back pain and radiculitis symptoms unresponsive to conservative treatment. Fluoroscopy was used to optimize visualization of the needle placement and to maximize safety. PROCEDURE DESCRIPTION / TECHNIQUE: The patient was seen and identified in the preoperative area. Risks, benefits, complications including but not limited to infections ,bleeding ,allergic reaction to the medications ,nerve damage and not complete pain releife , and al ternatives were discussed with the patient. The patient agreed to proceed with the procedure and signed the consent. IV was started, and vital signs were stable. Patient was taken to the OR and time out was completed. The patient was placed in the prone position on procedure table and a pillow was placed under the abdomen to reduce lumbar lordosis. The lumbosacral area was prepped and draped in the usual sterile fashion.ere closely monitored during the procedure. Conscious sedation was used during the procedure to decrease patients anxiety. Vital signs was monitered during the entire procedure. Using anterior-posterior fluoroscopy, the L5-S1 interlaminar space was identified and the skin over this site was marked and then infiltrated with 1% lidocaine subcutaneously. Subsequently, a 20-gauge Tuohy epidural needle was inserted and advanced toward the epidural space using the ``Loss of resistance technique and guided by AP and lateral fluoroscopy. The correct needle position in the epidural space was verified with the injection of 2 mL of the water soluble contrast dye Isovue 200 contrast and observing an excellent epidurogram with the epidural spread of the dye, after negative aspiration for blood and CSF and in the absence of paresthesias. Again after negative aspiration, a 6 ml mixture containing 80 mg of Depo-medrol , and 2 ml of preservative free Normal Saline, and 2 ml of preservative free lidocaine 1% solution was injected and a washout of epidurogram was seen. Needle was withdrawn intact, skin was cleansed, and bandages were applied. COMPLICATIONS: None DISPOSITION / PLANS: The patient was placed in a supine position and transferred to the recovery area in a stable condition for observation. There was no evidence of lower extremity motor or sensory deficit after the procedure. Patient was discharged from the recovery room after meeting discharge criteria. Home discharge instructions were given to the patient by the staff. The patient was reexamined prior to discharge. The patient will schedule a follow up in the clinic in 2-4 weeks. Patient takes Xarelto ,and he held Xarelto for more than 72 hours
[2022-04-04] MEDS ORDERED: IV FLUID CONTINUATION 700 ML IV ONE (09:39)
--- NOTE | 2022-04-04 09:43 | FL ---
EXAMINATION TYPE: FL guided pain mgmt statistic DATE OF EXAM: 04/04/2022 HISTORY: Fluoroscopy time 2 seconds of fluoroscopy provided. IMPRESSION: 1. Fluoroscopy time.
[2022-04-04 09:57] VITALS: BP 119/82; PULSE 71
== END 2022-04-04 10:04 | disposition home or self-care (01) ==
LOC: ORPAIN 08:40
PROVIDERS: ATTEND Specialist
DX: M51.16 Intervertebral disc disorders with radiculopathy, lumbar region (principal); M47.26 Other spondylosis with radiculopathy, lumbar region; Z88.6 Allergy status to analgesic agent; Z91.018 Allergy to other foods; Z79.899 Other long term (current) drug therapy; Z79.01 Long term (current) use of anticoagulants
CPT/HCPCS: 62323; J2250; J1040; J3010; Q9966

== ENCOUNTER 2022-05-11 08:39 | Day surgery (SDC) | payer MEDICARE, OTHER ==
[~2022-05-11 08:39] MED LIST changes: +LIDOCAINE 1% (10MG/ML) FOR IV START INTRADERMA PRN
[2022-05-11 09:20] VITALS: TEMP 97.8
[2022-05-11] MEDS ORDERED: IOPAMIDOL M200 10 ML VIAL ONE (09:21)
[2022-05-11] MEDS ORDERED: methylPREDNISolone ACETATE 80 MG/ML 1 ML VIAL ONE (09:21)
[2022-05-11] MEDS ORDERED: MIDAZOLAM 2 MG/2 ML VIAL ONE (09:21)
[2022-05-11] MEDS ORDERED: fentaNYL (PF) 50 MCG/ML 2 ML AMP ONE (09:21)
--- NOTE | 2022-05-11 09:31 | P.PCN ---
Date of Procedure: 05/11/22 Procedure(s) Performed: PREOPERATIVE DIAGNOSIS: 1- Lumbar Degenerative Disc Diseases 2-Lumbar spondylosis with Facet arthropathy without myelopathy POSTOPERATIVE DIAGNOSIS: Same as preop diagnosis. PROCEDURE 1. Lumbar epidural steroid injection under fluoroscopic guidance at the L5-S1 level. (Fluoroscopy imaging was available in radiology department) 2. Lumbar epidurogram. ANESTHESIA: moderate sedation with intravenous Versed 2 mg ,and fentanyle 100 Mcg Sedation start time : :23 Sedation end time ::29 EBL: Minimal PROCEDURE INDICATION: The patient with low back pain and radiculitis symptoms unresponsive to conservative treatment. Fluoroscopy was used to optimize visualization of the needle placement and to maximize safety. PROCEDURE DESCRIPTION / TECHNIQUE: The patient was seen and identified in the preoperative area. Risks, benefits, complications including but not limited to infections ,bleeding ,allergic reaction to the medications ,nerve damage and not complete pain releife , and alternatives were discussed with the patient. The patient agreed to proceed with the procedure and signed the consent. IV was started, and vital signs were stable. Patient was taken to the OR and time out was completed. The patient was placed in the prone position on procedure table and a pillow was placed under the abdomen to reduce lumbar lordosis. The lumbosacral area was prepped and draped in the usual sterile fashion.ere closely monitored during the procedure. Conscious sedation was used during the procedure to decrease patients anxiety. Vital signs was monitered during the entire procedure. Using anterior-posterior fluoroscopy, the L5-S1 interlaminar space was identified and the skin over this site was marked and then infiltrated with 1% lidocaine subcutaneously. Subsequently, a 20-gauge Tuohy epidural needle was inserted and advanced toward the epidural space using the ``Loss of resistance technique and guided by AP and lateral fluoroscopy. The correct needle position in the epidural space was verified with the injection of 2 mL of the water soluble contrast dye Isovue 200 contrast and observing an excellent epidurogram with the epidural spread of the dye, after negative aspiration for blood and CSF and in the absence of paresthesias. Again after negative aspiration, a 6 ml mixture containing 80 mg of Depo-medrol , and 2 ml of preservative free Normal Saline, and 2 ml of preservative free lidocaine 1% solution was injected and a washout of epidurogram was seen. Needle was withdrawn intact, skin was cleansed, and bandages were applied. COMPLICATIONS: None DISPOSITION / PLANS: The patient was placed in a supine position and transferred to the recovery area in a stable condition for observation. There was no evidence of lower extremity motor or sensory deficit after the procedure. Patient was discharged from the recovery room after meeting discharge criteria. Home discharge instructions were given to the patient by the staff. The patient was reexamined prior to discharge. The patient will schedule a follow up in the clinic in 2-4 weeks. Patient takes Xarelto ,and he held Xarelto for more than 72 hours
--- NOTE | 2022-05-11 09:45 | FL ---
Intraoperative/procedural fluoroscopic services were provided. Total fluoroscopy time is 1 seconds wi th a total of 1 submitted images to PACS. Please see the operative/procedural note for further detail s.
[2022-05-11 09:49] VITALS: RESP 18
[2022-05-11 09:56] VITALS: BP 133/88; PULSE 74
== END 2022-05-11 10:02 | disposition home or self-care (01) ==
LOC: ORPAIN 08:39
PROVIDERS: ATTEND Specialist
DX: M51.16 Intervertebral disc disorders with radiculopathy, lumbar region (principal); M47.26 Other spondylosis with radiculopathy, lumbar region; I25.10 Atherosclerotic heart disease of native coronary artery without angina pectoris; Z91.013 Allergy to seafood; Z88.6 Allergy status to analgesic agent; Z88.9 Allergy status to unspecified drugs, medicaments and biological substances
CPT/HCPCS: 62323; J2250; J1040; J3010; Q9966

== ENCOUNTER 2022-05-30 18:54 | Emergency (ER) | payer MEDICARE, OTHER ==
[2022-05-30 19:27] VITALS: RESP 20; TEMP 98.9
[2022-05-30] MEDS ORDERED: LORazepam 2 MG/ML INJ IM STA (21:29)
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
[2022-05-30 22:32] VITALS: BP 132/79; PULSE 82
== END 2022-05-30 23:14 | disposition home or self-care (01) ==
LOC: EC 18:54
DX: F41.9 Anxiety disorder, unspecified (principal); F31.9 Bipolar disorder, unspecified; F17.200 Nicotine dependence, unspecified, uncomplicated; Z91.013 Allergy to seafood; Z88.6 Allergy status to analgesic agent; Z79.899 Other long term (current) drug therapy
CPT/HCPCS: 82075; 99283; 96372; J2060

== ENCOUNTER 2022-05-31 10:52 | Emergency (ER) | payer MEDICARE, OTHER ==
[2022-05-31 11:00] VITALS: RESP 18; TEMP 98.2
[2022-05-31] MEDS ORDERED: SODIUM CHLORIDE 0.9% 1,000 ML IV STA (11:19)
[2022-05-31] MEDS ORDERED: ONDANSETRON 4 MG/2 ML VIAL IVP STA ×2 (11:19→13:19)
[2022-05-31] MEDS ORDERED: DEXAMETHASONE SOD PHOSPHATE 10 MG/ML 1 ML VIAL IVP STA (11:19)
[2022-05-31] MEDS ORDERED: cloNIDine HCL 0.2 MG TAB PO STA (11:19)
[2022-05-31] MEDS ORDERED: hydrOXYzine HCL 25 MG TAB PO STA (11:22)
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
[2022-05-31 12:54] LABS: Basophils % (A) 0 %; Eosinophils # (A) 0.1 k/uL (0-0.7); Eosinophils % (A) 2 %; HCT 34.8 % (39.0-53.0); HGB 11.8 gm/dL (13.0-17.5); Lymphocytes # (A) 1.6 k/uL (1.0-4.8); Lymphocytes % (A) 21 %; MCH 32.3 pg (25.0-35.0); MCHC 33.9 g/dL (31.0-37.0); MCV 95.4 fL (80.0-100.0); Mean Platelet Volume 8.5; Monocytes # (A) 0.4 k/uL (0-1.0); Monocytes % (A) 5 %; Neutrophils # (A) 5.2 k/uL (1.3-7.7); Neutrophils % (A) 70 %; Platelet Count 324 k/uL (150-450); RBC 3.65 m/uL (4.30-5.90); RDW 13.8 % (11.5-15.5); WBC 7.5 k/uL (3.8-10.6)
[2022-05-31] MEDS ORDERED: ACETAMINOPHEN TAB 500 MG TAB PO STA (13:08)
[2022-05-31 13:11] LABS: ALT 16 U/L (4-49); AST 21 U/L (17-59); African American GFR (CKD) >90 (>60 ml/min/1.73 sqM); Albumin 3.8 g/dL (3.5-5.0); Alkaline Phosphatase 86 U/L (38-126); Anion Gap 11 mmol/L; Blood Urea Nitrogen 8 mg/dL (9-20); Calcium 8.8 mg/dL (8.4-10.2); Carbon Dioxide 22 mmol/L (22-30); Chloride 101 mmol/L (98-107); Glucose 96 mg/dL (74-99); Non-African American GFR(CKD) >90 (>60 ml/min/1.73 sqM); Potassium 3.7 mmol/L (3.5-5.1); Sodium 134 mmol/L (137-145); Total Bilirubin 0.1 mg/dL (0.2-1.3); Total Protein 6.7 g/dL (6.3-8.2)
[2022-05-31 13:18] LABS: Alcohol 85 mg/dL
[2022-05-31] MEDS ORDERED: HALOPERIDOL LACTATE 5 MG/ML 1 ML VIAL IVP ONE (13:18)
[2022-05-31] MEDS ORDERED: KETOROLAC 15 MG/ML 1 ML VIAL IVP STA (13:19)
[2022-05-31] MEDS ORDERED: clonazePAM 0.5 MG TAB PO STA (14:14)
[2022-05-31 14:20] VITALS: BP 138/78; PULSE 81
== END 2022-05-31 14:45 | disposition home or self-care (01) ==
LOC: EC 10:52
DX: F13.239 Sedative, hypnotic or anxiolytic dependence with withdrawal, unspecified (principal); F41.9 Anxiety disorder, unspecified; F17.200 Nicotine dependence, unspecified, uncomplicated; Z82.49 Family history of ischemic heart disease and other diseases of the circulatory system; Z91.013 Allergy to seafood; Z88.8 Allergy status to other drugs, medicaments and biological substances
CPT/HCPCS: 96374; 96375; 96361; 96376; 36415; 80053; 85025; 99284; G0480; J1630; J1100; J2405; J1885; 80320; 99285

== ENCOUNTER 2022-06-01 10:53 | Inpatient (IN) | payer MEDICARE, OTHER ==
[2022-06-01] MEDS ORDERED: ACETAMINOPHEN TAB 325 MG TAB PO STA (12:39)
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
[2022-06-01] MEDS ORDERED: ONDANSETRON 4 MG/2 ML VIAL IVP PRN (13:47)
[2022-06-01] MEDS ORDERED: NALOXONE 0.4 MG/ML 1 ML VIAL IV PRN (13:47)
[2022-06-01 13:50] LABS: Basophils % (A) 0 %; Eosinophils # (A) 0.1 k/uL (0-0.7); Eosinophils % (A) 1 %; HCT 39.7 % (39.0-53.0); HGB 13.3 gm/dL (13.0-17.5); Lymphocytes # (A) 2.4 k/uL (1.0-4.8); Lymphocytes % (A) 29 %; MCH 32.2 pg (25.0-35.0); MCHC 33.6 g/dL (31.0-37.0); MCV 95.9 fL (80.0-100.0); Mean Platelet Volume 7.7; Monocytes # (A) 0.5 k/uL (0-1.0); Monocytes % (A) 6 %; Neutrophils % (A) 62 %; Platelet Count 426 k/uL (150-450); RBC 4.14 m/uL (4.30-5.90); RDW 13.5 % (11.5-15.5); WBC 8.2 k/uL (3.8-10.6)
[2022-06-01 14:02] LABS: ALT 18 U/L (4-49); AST 21 U/L (17-59); African American GFR (CKD) >90 (>60 ml/min/1.73 sqM); Albumin 4.2 g/dL (3.5-5.0); Alkaline Phosphatase 92 U/L (38-126); Anion Gap 13 mmol/L; Blood Urea Nitrogen 8 mg/dL (9-20); Calcium 8.8 mg/dL (8.4-10.2); Carbon Dioxide 25 mmol/L (22-30); Chloride 104 mmol/L (98-107); Glucose 101 mg/dL (74-99); Magnesium 1.9 mg/dL (1.6-2.3); Non-African American GFR(CKD) >90 (>60 ml/min/1.73 sqM); Potassium 4.2 mmol/L (3.5-5.1); Sodium 142 mmol/L (137-145); Total Bilirubin 0.4 mg/dL (0.2-1.3); Total Protein 7.7 g/dL (6.3-8.2)
[2022-06-01 14:06] LABS: Alcohol 271 mg/dL
[2022-06-01] MEDS: SODIUM CHLORIDE 0.9% 1,000 ML IV SCH (15:12)
[2022-06-01 16:21] LABS: Amphetamine Screen,Urine Not Detected (NotDetected); Barbiturate Screen,Urine Not Detected (NotDetected); Benzodiazepines Screen,Urine Detected (NotDetected); Cocaine Screen,Urine Not Detected (NotDetected); Methadone Screen, Urine Not Detected (NotDetected); Opiate Screen,Urine Not Detected (NotDetected); Oxycodone Screen, Urine Not Detected (NotDetected); Phencyclidine Screen,Urine Not Detected (NotDetected); Tricyclic Antidepressant,Urine Not Detected (NotDetected); Urn Cannabinoid Scrn Not Detected (NotDetected)
[2022-06-01] MEDS ORDERED: diphenhydrAMINE 50 MG/ML 1 ML VIAL IVP STA (18:13)
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
[2022-06-01] MEDS ORDERED: clonazePAM 0.5 MG TAB PO PRN (22:34)
[2022-06-01] MEDS: BACLOFEN 10 MG TAB PO PRN (22:55)
[2022-06-01] MEDS: GABAPENTIN 300 MG CAP PO SCH (22:55)
[2022-06-02] MEDS: SODIUM CHLORIDE 0.9% 1,000 ML IV SCH ×2 (07:18→17:20)
[2022-06-02] MEDS: RIVAROXABAN 2.5 MG TABLET PO SCH ×2 (08:55→21:02)
[2022-06-02] MEDS: GABAPENTIN 300 MG CAP PO SCH ×3 (08:55→21:02)
[2022-06-02] MEDS: BUTALB/APAP/CAFF 50-325-40MG TAB PO PRN ×3 (09:03→21:02)
[2022-06-02] MEDS ORDERED: LORazepam 1 MG TAB PO SCH (09:45)
[2022-06-02] MEDS: clonazePAM 1 MG TAB PO SCH ×3 (10:56→21:02)
[2022-06-02] MEDS ORDERED: cloNIDine HCL 0.1 MG TAB PO PRN (13:54)
[2022-06-02] MEDS ORDERED: traZODone HCL 50 MG TAB PO PRN (13:55)
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
[2022-06-02] MEDS: LORazepam 1 MG TAB PO PRN ×2 (14:45→22:19)
--- NOTE | 2022-06-02 15:25 | P.PN ---
Subjective Progress Note Date: 06/02/22 Patient is a 57-year-old male with a known history of seizure disorder, ADD/ADHD, anxiety/depression/bipolar disorder and schizophrenia and currently everyday smoker and occasional alcohol use and chronic low back pain and other multiple medical problems was brought to the hospital due to alcohol intoxi cation and medication withdrawal. Patient is complaining of lower back pain and he has not been receiving his medications from primary care physician. Patient follows with pain clinic. Patient was seen by anesthesia and had Lumbar epidural steroid injection under fluoroscopic guidance L5-S1 on . Patient also states that he is withdrawing from benzodiazepines. Patient admits drinking large amount of alcohol today. Patient was brought to the hospital police under petition. Laboratory data showed WBC 8.2 hemoglobin 13.3 and platelets 426 BUN 8 and creatinine 0.54 and blood sugar 101 UDS is positive for benzodiazepines. Serum alcohol level is 271 06/02/2022 Patient is seen and evaluated in follow-up this morning currently with a sitter at the bedside as patient was petitioned. Patient denies any suicidal homicidal ideation or thoughts of wanting to harm himself or others. Patient does chronically take benzodiazepines including Klonopin and baclofen and does follow with pain management outpatient. Patient recently had epidural steroid injections although feels is ineffective. Patient currently on protocol for alcohol intoxication although nothing was prescribed. Will resume scheduled Klonopin as patient takes this chronically and recommend he use Ativan by mouth as needed for acute signs of withdrawal. Patient is having some withdrawal symptoms currently and reporting some nausea. Recommend anti-nausea medications as needed. Encouraged oral intake and increased activity as tolerated. Patient is afebrile denies chest pain or shortness of breath. Recommend continue fluid hydration at this time. Psychiatry was consulted and pending. Review of systems: Constitutional: No reports of fatigue, fever, or chills Cardiovascular: No reports of chest pain or palpitations Respiratory: No reports of shortness of breath or cough GI: No reports of nausea, vomiting, or diarrhea : No reports of dysuria or retention Neurovascular: No reports of weakness or numbness All medications have been reviewed Active Medications Acetaminophen/Butalbital/Caffeine (Butalb/Apap/Caff 50-325-40mg Tab) 1 each PO Q4HR PRN PRN Reason: Migraine Headache Last Admin: 06/02/22 14:44 Dose: 1 each Baclofen (Baclofen 10 Mg Tab) 20 mg PO QID PRN PRN Reason: muscle spasms Last Admin: 06/01/22 22:55 Dose: 20 mg Clonazepam (Clonazepam 1 Mg Tab) 1 mg PO TID [facility] Last Admin: 06/02/22 10:56 Dose: 1 mg Clonidine (Clonidine Hcl 0.1 Mg Tab) 0.1 mg PO Q8H PRN PRN Reason: opioid w/d sx Gabapentin (Gabapentin 300 Mg Cap) 600 mg PO TID [facility] Last Admin: 06/02/22 08:55 Dose: 600 mg Hydroxyzine Pamoate (Hydroxyzine Pamoate 25 Mg Cap) 25 mg PO Q6HR PRN PRN Reason: Anxiety Sodium Chloride (Saline 0.9%) 1,000 mls @ 75 mls/hr IV .[id number] [facility] Last Admin: 06/02/22 07:18 Dose: 75 mls/hr Lorazepam (Lorazepam 1 Mg Tab) 1 mg PO Q4HR PRN PRN Reason: CIWA 10 to 15 Last Admin: 06/02/22 14:45 Dose: 1 mg Naloxone HCl (Naloxone 0.4 Mg/Ml 1 Ml Vial) 0.2 mg IV Q2M PRN PRN Reason: Opioid Reversal Ondansetron HCl (Ondansetron 4 Mg/2 Ml Vial) 4 mg IVP Q8HR PRN PRN Reason: Nausea And Vomiting Last Admin: 06/01/22 18:19 Dose: 4 mg Rivaroxaban (Rivaroxaban 2.5 Mg Tablet) 2.5 mg PO BID [facility]; Protocol Last Admin: 06/02/22 08:55 Dose: 2.5 mg Trazodone HCl (Trazodone Hcl 50 Mg Tab) 50 mg PO HS PRN PRN Reason: Insomnia PHYSICAL EXAMINATION: Patient is lying in the bed comfortably, no acute distress, awake alert and oriented, somewhat anxious, complains of pain... HEENT: Normocephalic. Neck is supple. Pupils reactive. Nostrils clear. Oral cavity is moist. Neck reveals no JVD, carotid bruits, or thyromegaly. CHEST EXAMINATION: Trachea is central. Symmetrical expansion. Lung reyna clear to auscultation and percussion. CARDIAC: Normal S1, S2 with no gallops. No murmurs ABDOMEN: Soft. Bowel sounds present. Nontender. No organomegaly. No abdominal bruits. Extremities: reveal no edema. No clubbing or cyanosis Neurologically awake, alert, oriented x2-3 with well-coordinated movements. No gross focal deficits noted Skin: No rash or skin lesions. Psychiatric: Normal cooperative. anxious Musculoskeletal: No joint swelling or deformity. Assessment: Acute alcohol intoxication Chronic low back pain with recent lumbar epidural steroid injection on 05/11/2022 Chronic pain syndrome History of DVT patient is on Xarelto History of seizure disorder. ADD/ADHD, anxiety/depression and bipolar disorder and schizophrenia Currently everyday smoker DVT prophylaxis patient is on Xarelto. Full code Plan: Patient will be continued on IV hydration with normal saline and monitor for alcohol withdrawal symptoms. Recommend Ativan by mouth as needed for CIWA protocol Recommend resuming home medications of scheduled Klonopin Psychiatry was consulted and pending at this time. Continue with home pain medications including gabapentin, baclofen and Tylenol. Patient will need close outpatient follow-up with picture painter Monitor for alcohol withdrawal symptoms. Prognosis is guarded. Encouraged increased activity as tolerated and encouraged oral intake Possible discharge in 24-48 hours. The impression and plan of care has been dictated by Mandy Restrepo, Nurse Practitioner as directed. Dr. Deshawn MD I have performed a history and examination and MDM of this patient, discussed the same with the dictator, and agree with the dictator's assessment and plan as written ,documented as a scribe. Based on total visit time, I have performed more than 50% of the visit. Objective - Vital Signs Vital signs: Vital Signs Temp 99.7 F H 06/02/22 06:56 Pulse 84 06/02/22 06:56 Resp 18 06/02/22 06:56 BP 131/74 06/02/22 06:56 Pulse Ox 98 06/02/22 06:56 FiO2 Intake & Output 06/01/22 06/02/22 06/02/22 18:59 06:59 18:59 Weight 74.843 kg 74.843 kg Other: Voiding Method Urinal - Labs CBC & Chem 7: 06/01/22 13:40 06/01/22 13:40 Labs: Abnormal Lab Results - Last 24 Hours (Table) 06/01/22 06/01/22 06/01/22 Range/Units 13:40 13:40 15:40 RBC 4.14 L (4.30-5.90) m/uL BUN 8 L (9-20) mg/dL Creatinine 0.54 L (0.66-1.25) mg/dL Glucose 101 H (74-99) mg/dL U Benzodiazepines Scrn Detected H (NotDetected) Serum Alcohol 271 H* mg/dL
[2022-06-02] MEDS: NICOTINE 21MG/24HR PATCH TRANSDERM SCH (17:20)
[2022-06-03] MEDS: hydrOXYzine pamoate 25 MG CAP PO PRN ×2 (02:00→08:44)
[2022-06-03] MEDS: BUTALB/APAP/CAFF 50-325-40MG TAB PO PRN ×3 (02:01→11:27)
[2022-06-03] MEDS: LORazepam 1 MG TAB PO PRN ×4 (02:54→15:59)
[2022-06-03] MEDS: SODIUM CHLORIDE 0.9% 1,000 ML IV SCH (06:14)
[2022-06-03] MEDS: GABAPENTIN 300 MG CAP PO SCH ×2 (08:43→15:59)
[2022-06-03] MEDS: NICOTINE 21MG/24HR PATCH TRANSDERM SCH (08:44)
[2022-06-03] MEDS: clonazePAM 1 MG TAB PO SCH ×2 (08:44→15:59)
[2022-06-03] MEDS: BACLOFEN 10 MG TAB PO PRN (08:45)
[2022-06-03] MEDS: RIVAROXABAN 2.5 MG TABLET PO SCH (09:02)
[2022-06-03 12:52] VITALS: BP 135/85; PULSE 76; RESP 18; TEMP 97.9
[2022-06-03] MEDS ORDERED: HYDROcodone/APAP 5-325MG 1 EACH TAB PO PRN (14:08)
== END 2022-06-03 18:00 | disposition left against medical advice (07) | DRG 894 ==
LOC: EC 10:53 → 4SSUR 13:47 → 5NMEDONC 06-02 04:34
PROVIDERS: ADMIT Internal Medicine; ATTEND Internal Medicine
DX: F10.129 Alcohol abuse with intoxication, unspecified (principal); F10.139 Alcohol abuse with withdrawal, unspecified; F11.13 Opioid abuse with withdrawal; Y90.8 Blood alcohol level of 240 mg/100 ml or more; G89.4 Chronic pain syndrome; M54.50 Low back pain, unspecified; G40.909 Epilepsy, unspecified, not intractable, without status epilepticus; F90.9 Attention-deficit hyperactivity disorder, unspecified type; F41.9 Anxiety disorder, unspecified; F31.9 Bipolar disorder, unspecified; G62.9 Polyneuropathy, unspecified; F20.9 Schizophrenia, unspecified; K58.9 Irritable bowel syndrome, unspecified; M41.9 Scoliosis, unspecified; F17.210 Nicotine dependence, cigarettes, uncomplicated; Z79.899 Other long term (current) drug therapy; Z79.01 Long term (current) use of anticoagulants; T79.A22D Traumatic compartment syndrome of left lower extremity, subsequent encounter; V29.99XD Rider (driver) (passenger) of other motorcycle injured in unspecified traffic accident, subsequent encounter; Z88.6 Allergy status to analgesic agent; Z86.14 Personal history of Methicillin resistant Staphylococcus aureus infection; Z87.828 Personal history of other (healed) physical injury and trauma; Z86.718 Personal history of other venous thrombosis and embolism; Z82.41 Family history of sudden cardiac death; Z81.1 Family history of alcohol abuse and dependence
CPT/HCPCS: 36415; 80053; 80306; 80320; 82075; 83735; 85025; 96361; 96374; 96375; 99285

== ENCOUNTER 2022-06-04 07:09 | Emergency (ER) | payer MEDICARE, OTHER ==
[2022-06-04 07:33] VITALS: BP 136/73; PULSE 87; RESP 18; TEMP 98.2
[2022-06-04] MEDS ORDERED: SODIUM CHLORIDE 0.9% 1,000 ML IV STA (07:40)
[2022-06-04] MEDS ORDERED: diphenhydrAMINE 50 MG/ML 1 ML VIAL IVP STA (07:40)
[2022-06-04] MEDS ORDERED: METOCLOPRAMIDE 5 MG/ML 2 ML VIAL IVP STA (07:40)
[2022-06-04] MEDS ORDERED: DEXAMETHASONE SOD PHOSPHATE 10 MG/ML 1 ML VIAL IV STA (07:40)
[2022-06-04] MEDS ORDERED: SUMAtriptan succinate 6 MG/0.5 ML VIAL SQ STA (07:40)
[2022-06-04] MEDS ORDERED: KETOROLAC 15 MG/ML 1 ML VIAL IVP STA (07:40)
[2022-06-04] MEDS ORDERED: ORPHENADRINE 30 MG/ML 2 ML VIAL IVP STA (07:42)
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
== END 2022-06-04 08:30 | disposition left against medical advice (07) ==
LOC: EC 07:09
DX: G89.29 Other chronic pain (principal); M54.50 Low back pain, unspecified; F17.200 Nicotine dependence, unspecified, uncomplicated; Z82.49 Family history of ischemic heart disease and other diseases of the circulatory system; Z88.6 Allergy status to analgesic agent; Z91.013 Allergy to seafood
CPT/HCPCS: 36415; 99283; 96374; 96375; 96372; G0480; J3030; J1200; J1100; J2360; J2765; J1885; 80320

== ENCOUNTER 2022-06-07 02:13 | Emergency (ER) | payer MEDICARE, OTHER ==
[2022-06-07 02:25] VITALS: TEMP 98.3
[2022-06-07] MEDS ORDERED: ACETAMINOPHEN TAB 500 MG TAB PO STA (03:41)
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
[2022-06-07 03:51] VITALS: BP 129/74; PULSE 71; RESP 15
[2022-06-07] MEDS ORDERED: LIDOCAINE 5% PATCH TOPICAL SCH (09:00)
== END 2022-06-07 03:59 | disposition home or self-care (01) ==
LOC: EC 02:13
DX: G89.29 Other chronic pain (principal); F19.10 Other psychoactive substance abuse, uncomplicated; F90.9 Attention-deficit hyperactivity disorder, unspecified type; F31.9 Bipolar disorder, unspecified; F17.200 Nicotine dependence, unspecified, uncomplicated; F11.20 Opioid dependence, uncomplicated; Z91.013 Allergy to seafood; Z88.6 Allergy status to analgesic agent
CPT/HCPCS: 99283

== ENCOUNTER 2022-06-10 16:40 | Observation (INO) | payer MEDICARE, OTHER ==
[2022-06-10] MEDS ORDERED: SODIUM CHLORIDE 0.9% 500 ML 500 ML IV STA (16:42)
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
[2022-06-10 17:04] LABS: Basophils % (A) 0 %; Eosinophils # (A) 0.6 k/uL (0-0.7); Eosinophils % (A) 6 %; HCT 37.5 % (39.0-53.0); HGB 12.3 gm/dL (13.0-17.5); Lymphocytes # (A) 1.5 k/uL (1.0-4.8); Lymphocytes % (A) 16 %; MCH 32.4 pg (25.0-35.0); MCHC 32.9 g/dL (31.0-37.0); MCV 98.7 fL (80.0-100.0); Mean Platelet Volume 8.3; Monocytes # (A) 0.5 k/uL (0-1.0); Monocytes % (A) 6 %; Neutrophils # (A) 6.5 k/uL (1.3-7.7); Neutrophils % (A) 70 %; Platelet Count 344 k/uL (150-450); RDW 13.8 % (11.5-15.5); WBC 9.4 k/uL (3.8-10.6)
[2022-06-10 17:14] LABS: Partial Thromboplastin Time 25.2 sec (22.0-30.0); Prothrombin Time 10.5 sec (9.0-12.0)
[2022-06-10 17:15] LABS: ALT 12 U/L (4-49); AST 15 U/L (17-59); Acetaminophen <10.0 ug/mL; African American GFR (CKD) >90 (>60 ml/min/1.73 sqM); Albumin 3.9 g/dL (3.5-5.0); Alcohol <10 mg/dL; Alkaline Phosphatase 69 U/L (38-126); Anion Gap 10 mmol/L; Blood Urea Nitrogen 11 mg/dL (9-20); Calcium 8.7 mg/dL (8.4-10.2); Carbon Dioxide 24 mmol/L (22-30); Chloride 104 mmol/L (98-107); Glucose 89 mg/dL (74-99); Non-African American GFR(CKD) >90 (>60 ml/min/1.73 sqM); Potassium 4.3 mmol/L (3.5-5.1); Salicylate <1.0 mg/dL; Sodium 138 mmol/L (137-145); Total Bilirubin 0.2 mg/dL (0.2-1.3); Total Protein 6.7 g/dL (6.3-8.2)
[2022-06-10 19:30] LABS: Amphetamine Screen,Urine Not Detected (NotDetected); Barbiturate Screen,Urine Detected (NotDetected); Benzodiazepines Screen,Urine Detected (NotDetected); Cocaine Screen,Urine Not Detected (NotDetected); Methadone Screen, Urine Not Detected (NotDetected); Opiate Screen,Urine Not Detected (NotDetected); Oxycodone Screen, Urine Not Detected (NotDetected); Phencyclidine Screen,Urine Not Detected (NotDetected); Tricyclic Antidepressant,Urine Not Detected (NotDetected); Urn Cannabinoid Scrn Not Detected (NotDetected)
[2022-06-11] MEDS ORDERED: LORazepam 2 MG/ML INJ IV STA (05:40)
[2022-06-11 09:03] VITALS: RESP 16
[2022-06-11 09:56] LABS: Basophils # (A) 0.06 X 10*3/uL (0.00-0.10); Basophils % (A) 0.4 %; Eosinophils # (A) 0.33 X 10*3/uL (0.04-0.35); HCT 37.4 % (39.6-50.0); HGB 12.2 g/dL (13.0-17.0); Immature Grans, Automated 0.5 %; Lymphocytes # (A) 1.66 X 10*3/uL (0.90-5.00); Lymphocytes % (A) 9.8 %; MCH 31.9 pg (27.0-32.0); MCHC 32.6 g/dL (32.0-37.0); MCV 97.7 fL (80.0-97.0); Mean Platelet Volume 9.9 fL (9.5-12.2); Monocytes % (A) 7.1 %; NRBC Per 100 WBC 0 /100 WBCS (0.0-0.0); Neutrophils # (A) 13.59 X 10*3/uL (1.80-7.70); Neutrophils % (A) 80.2 %; Platelet Count 358 X 10*3/uL (140-440); RBC 3.83 X 10*6/uL (4.40-5.60); WBC 16.92 X 10*3/uL (4.50-10.00)
[2022-06-11 10:20] LABS: ALT 8 U/L (10-49); AST 11 U/L (14-35); African American GFR (CKD) 131.2 (60.0-200.0); Albumin 3.9 g/dL (3.8-4.9); Albumin/Globulin Ratio 1.39 (1.60-3.17); Alkaline Phosphatase 84 U/L (41-126); Blood Urea Nitrogen 8.7 mg/dL (9.0-27.0); Calcium 8.9 mg/dL (8.7-10.3); Chloride 106 mmol/L (96-109); Globulin 2.8 g/dL (1.6-3.3); Glucose 94 mg/dL (70-110); Non-African American GFR(CKD) 113.2 (60.0-200.0); Potassium 3.9 mmol/L (3.5-5.5); Sodium 138 mmol/L (135-145); Total Bilirubin <0.15 mg/dL (0.30-1.20); Total Protein 6.7 g/dL (6.2-8.2)
[2022-06-11] MEDS ORDERED: ONDANSETRON ODT 8 MG TAB.RAPDIS PO PRN (11:28)
[2022-06-11] MEDS ORDERED: BACLOFEN 10 MG TAB PO PRN (11:28)
[2022-06-11] MEDS ORDERED: BUTALB/APAP/CAFF 50-325-40MG TAB PO PRN (11:28)
[2022-06-11] MEDS ORDERED: NAPROXEN 250 MG TAB PO PRN (11:28)
--- NOTE | 2022-06-11 12:13 | XR ---
EXAMINATION TYPE: XR chest 1V portable DATE OF EXAM: 06/11/2022 CLINICAL HISTORY: Difficulty breathing possible aspiration. TECHNIQUE: Single AP portable upright view of the chest is obtained. COMPARISON: Chest x-ray from March 12, 2022 FINDINGS: Mild chronic parenchymal changes greatest in the bases without suspicious new focal airspa ce opacity, pleural effusion, or pneumothorax seen bilaterally. Cardiac silhouette size appears withi n normal limits. Osseous structures are intact. IMPRESSION: Chronic changes greatest in the bases without acute infiltrate.
[2022-06-11 13:10] VITALS: BP 110/71; PULSE 88; TEMP 98.3
[2022-06-11] MEDS ORDERED: GABAPENTIN 300 MG CAP PO SCH (16:00)
[2022-06-11] MEDS ORDERED: RIVAROXABAN 2.5 MG TABLET PO SCH (21:00)
--- NOTE | 2022-06-12 03:01 | HP ---
HISTORY AND PHYSICAL COMBINED HISTORY AND PHYSICAL AND DISCHARGE SUMMARY CHIEF COMPLAINT: Klonopin overdose. HISTORY OF PRESENT ILLNESS: This 57-year-old gentleman with a past history of multiple problems was apparently admitted after taking 9 tablets of Klonopin. The patient is slightly drowsy, but otherwise able to answer the questions. The patient reports that the patient is extremely anxious and that is the reason for the ingestion. There is no history of suicidal ideations or plan at this time. There is no history of fever, rigors, or chills. The patient is not on any suicidal precautions either. PAST MEDICAL HISTORY: Reviewed, which include seizure disorder and rest of these were reviewed. HOME MEDICATIONS: Again reviewed include Klonopin, doses and rest of medication noted. ALLERGIES: Fish containing products. FAMILY HISTORY: Myocardial infarction. SOCIAL HISTORY: History of smoking. REVIEW OF SYSTEMS: 14-point review is negative as mentioned earlier. PHYSICAL EXAMINATION: VITAL SIGNS: Pulse is 88, blood pressure 110/70, respirations 16. CHEST: Clear to auscultation. CARDIOVASCULAR: S1 and S2. ABDOMEN: Soft. NERVOUS SYSTEM: No focal deficits. LABORATORY DATA: Reviewed. ASSESSMENT: 1. Status post Klonopin overdosage. 2. History of seizure disorder. 3. History of anxiety, bipolar, depression. RECOMMENDATIONS: Recommend to continue current management. Continue to monitor closely. Recommended the patient to follow up with closely Psychiatry. However, the patient later left the hospital against medical advice. Please refer to the staff notes and other ER notes for significant information. Prognosis remains guarded and once again the patient was able to communicate and appears to have adequate decision-making capacity at this time. Prognosis is guarded. MMODL / IJN: [id number] /
== END 2022-06-11 15:00 | disposition left against medical advice (07) ==
LOC: EC 16:40 → 6NMEDSUR 18:45
PROVIDERS: ADMIT Family Medicine; ATTEND Family Medicine
DX: T42.4X1A Poisoning by benzodiazepines, accidental (unintentional), initial encounter (principal); R40.0 Somnolence; F41.9 Anxiety disorder, unspecified; G40.909 Epilepsy, unspecified, not intractable, without status epilepticus; G62.9 Polyneuropathy, unspecified; F20.9 Schizophrenia, unspecified; F31.9 Bipolar disorder, unspecified; F90.9 Attention-deficit hyperactivity disorder, unspecified type; F17.200 Nicotine dependence, unspecified, uncomplicated; Z79.01 Long term (current) use of anticoagulants; Z79.899 Other long term (current) drug therapy; Z88.6 Allergy status to analgesic agent
CPT/HCPCS: 96360; 96361; 99285; 36415; 93005; 80053 ×2; 85025 ×2; 85610; 85730; 80306; 80143; 80179; 71045; G0378 ×2; G0480; 80320

== ENCOUNTER 2022-06-15 00:27 | Inpatient (IN) | payer MEDICARE, OTHER ==
[2022-06-15] MEDS ORDERED: SODIUM CHLORIDE 0.9% 1,000 ML IV STA (00:43)
--- NOTE | 2022-06-15 01:14 | XR ---
EXAMINATION TYPE: XR chest 1V portable DATE OF EXAM: 06/15/2022 COMPARISON: 06/11/2022 HISTORY: Chest pain TECHNIQUE: FINDINGS: Heart is normal. The lungs are clear of consolidation. There is mild coarsening of intersti tial markings. There are no hilar masses. Bony thorax is intact. There is some increased density in t he inferior right pulmonary hilar region. IMPRESSION: Possible mild infiltrate in the right lower lobe below the pulmonary hilum and not change d compared to last exam. Mild pulmonary fibrosis. Normal heart.
[2022-06-15 01:30] LABS: Basophils # (A) 0.1 k/uL (0-0.2); Basophils % (A) 0 %; Eosinophils # (A) 0.1 k/uL (0-0.7); Eosinophils % (A) 0 %; HCT 50.2 % (39.0-53.0); Lymphocytes # (A) 1.8 k/uL (1.0-4.8); Lymphocytes % (A) 8 %; MCH 32.3 pg (25.0-35.0); MCHC 32.9 g/dL (31.0-37.0); MCV 98.4 fL (80.0-100.0); Mean Platelet Volume 7.5; Monocytes # (A) 1.2 k/uL (0-1.0); Monocytes % (A) 5 %; Neutrophils # (A) 20.5 k/uL (1.3-7.7); Neutrophils % (A) 86 %; Platelet Count 606 k/uL (150-450); RDW 13.6 % (11.5-15.5); WBC 23.9 k/uL (3.8-10.6)
[2022-06-15 01:33] LABS: HGB 16.5 gm/dL (13.0-17.5)
[2022-06-15 01:40] LABS: ALT 62 U/L (4-49); AST 71 U/L (17-59); African American GFR (CKD) >90 (>60 ml/min/1.73 sqM); Albumin 5.5 g/dL (3.5-5.0); Alkaline Phosphatase 148 U/L (38-126); Amylase 120 U/L (30-110); Anion Gap 32 mmol/L; Blood Urea Nitrogen 23 mg/dL (9-20); Calcium 9.7 mg/dL (8.4-10.2); Carbon Dioxide 11 mmol/L (22-30); Chloride 98 mmol/L (98-107); Glucose 61 mg/dL (74-99); Lipase 71 U/L (23-300); Magnesium 2.3 mg/dL (1.6-2.3); Non-African American GFR(CKD) >90 (>60 ml/min/1.73 sqM); Sodium 141 mmol/L (137-145); Total Bilirubin 0.3 mg/dL (0.2-1.3); Total Protein 9.6 g/dL (6.3-8.2)
[2022-06-15 01:50] LABS: Alcohol 328 mg/dL
[2022-06-15] MEDS ORDERED: DEXTROSE 50% SYRINGE 50 ML IVP STA (02:00)
[2022-06-15] MEDS ORDERED: cefTRIAXone IN SWFI 1,000 MG/10 ML SYRINGE IVP STA (02:01)
[2022-06-15] MEDS ORDERED: AZITHROMYCIN 500 MG in SODIUM CHLORIDE 0.9% 250 ML IVPB STA (02:02)
[2022-06-15] MEDS: SODIUM CHLORIDE 0.9% 1,000 ML IV SCH ×3 (02:27→18:34)
[2022-06-15] MEDS ORDERED: NALOXONE 0.4 MG/ML 1 ML VIAL IV PRN (02:38)
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
[2022-06-15] MEDS ORDERED: THIAMINE 100 MG/ML 2 ML VIAL IM STA (02:40)
[2022-06-15] MEDS ORDERED: LORazepam 1 MG TAB PO PRN ×3 (02:40)
[2022-06-15 03:44] LABS: Glucose,Whole Blood 168 mg/dL (70-110)
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
[2022-06-15] MEDS: LORazepam 0.5 MG TAB PO PRN ×3 (06:56→20:43)
[2022-06-15] MEDS: AMPICILLIN-SULBACTAM 1.5 GM in SODIUM CHLORIDE 0.9% 50 ML IVPB SCH ×3 (06:56→19:02)
[2022-06-15 07:42] LABS: Appearance,Urine Clear (Clear); Bilirubin,Urine Negative (Negative); Blood,Urine Trace (Negative); Color,Urine Light Yellow; Glucose,Urine (UA) Negative (Negative); Hyaline Casts,Urine 8 /lpf (0-2); Ketones,Urine 2+ (Negative); Leukocyte Esterase,Urine Negative (Negative); Mucus,Urine Rare /hpf; Nitrite,Urine Negative (Negative); PH, Urine 5.5 (5.0-8.0); Protein,Urine 1+ (Negative); Specific Gravity,Urine 1.017 (1.001-1.035); Squamous Epithelial Cell,Urine <1 /hpf (0-4); Urobilinogen,Urine <2.0 mg/dL (<2.0); WBC,Urine <1 /hpf (0-5)
[2022-06-15] MEDS ORDERED: SODIUM CHLORIDE 0.9% 1,000 ML IV ONE (08:22)
[2022-06-15] MEDS ORDERED: PANTOPRAZOLE 40 MG/10 ML VIAL IVP SCH (09:00)
[2022-06-15] MEDS: ACETAMINOPHEN TAB 325 MG TAB PO PRN ×2 (09:15→20:43)
[2022-06-15] MEDS: diazePAM 2 MG TAB PO SCH ×3 (09:16→22:49)
[2022-06-15] MEDS: HEPARIN SODIUM,PORCINE/PF 5,000 UNIT/0.5 ML SYRINGE SQ SCH ×2 (09:17→16:44)
--- NOTE | 2022-06-15 17:09 | P.PN ---
Subjective Progress Note Date: 06/15/22 Patient is a 57-year-old male with history of alcohol abuse, seizure disorder, chronic low back pain with recent steroid injection, irritable bowel syndrome, and multiple other comorbid conditions who presented to the ER via EMS for intoxication. In the ER he underwent an extensive evaluation. On arrival he was tachycardic with a heart rate of 110 and blood pressure of 98/64. Chest x- ray showed a right lower lobe infiltrate not significantly changed from prior exam. He was started on Zosyn, CIWA protocol, and IV fluids. Results are made for admission. Several hours after admission he spiked a fever of 101 and became increasingly tachycardic. He was given additional fluid boluses and started on Valium. Patient seen and examined at bedside. He still appears to be slightly intoxic ated. He is having repetitive lip smacking. He states he feels "terrible". He reports some body aches, cough, but denies any chest pain or shortness of breath. He states yesterday he drank a fifth of alcohol which is higher than his normal alcohol intake. He reports nausea and vomiting. General: Ill appearing, mild distress, appears older than stated age, disheveled Derm: warm, dry Head: atraumatic, normocephalic, symmetric Eyes: EOMI, no lid lag, anicteric sclera Mouth: no lip lesion, mucus membranes moist Cardiovascular: S1S2 reg, no murmur, positive posterior tibial pulse bilateral, Lungs: Coarse breath sounds bilateral bases, no rhonchi, no rales , no accessory muscle use Abdominal: soft, nontender to palpation, no guarding, no appreciable organomegaly Ext: no gross muscle atrophy, no edema, no contractures Neuro: CN II-XI grossly intact, no focal neuro deficits Psych: Alert, oriented, appears anxious, continual lipsmacking Assessment/plan: Aspiration pneumonia, right-sided with sepsis -Continue with Unasyn -additional 1 L fluid bolus -additional stat blood culture, one blood culture from last night pending -Check MRSA nasal swab with history of MRSA skin infection -Pulmonary hygiene Alcohol withdrawal, alcohol intoxication on admission Alcohol dependency - Add oral valium - CIWA - Thiamine, Folic Acid Chronic back pain -Recent epidural steroid injection Transaminitis -Likely secondary to alcohol intoxication -Repeat a.m. Thrombocytosis, likely reactive -Repeat CBC in a.m. Prior DVT -Patient on Xarelto Hypoglycemia, resolved Objective - Vital Signs Vital signs: Vital Signs Temp 101.1 F H 06/15/22 08:14 Pulse 121 H 06/15/22 07:40 Resp 18 06/15/22 07:40 BP 124/78 06/15/22 07:40 Pulse Ox 98 06/15/22 07:40 FiO2 Intake & Output 06/14/22 06/15/22 06/15/22 18:59 06:59 18:59 Intake Total 725 Balance 725 Weight 58.967 kg Intake: Oral 725 Other: # Voids 1 - Labs CBC & Chem 7: 06/15/22 00:47 06/15/22 00:47 Labs: Abnormal Lab Results - Last 24 Hours (Table) 06/15/22 06/15/22 06/15/22 Range/Units 00:47 00:47 03:41 WBC 23.9 H (3.8-10.6) k/uL Plt Count 606 H (150-450) k/uL Neutrophils # 20.5 H (1.3-7.7) k/uL Monocytes # 1.2 H (0-1.0) k/uL Carbon Dioxide 11 L (22-30) mmol/L BUN 23 H (9-20) mg/dL Glucose 61 L (74-99) mg/dL POC Glucose (mg/dL) 168 H (70-110) mg/dL AST 71 H (17-59) U/L ALT 62 H (4-49) U/L Alkaline Phosphatase 148 H (38-126) U/L Total Protein 9.6 H (6.3-8.2) g/dL Albumin 5.5 H (3.5-5.0) g/dL Amylase 120 H (30-110) U/L Urine Protein (Negative) Urine Ketones (Negative) Urine Blood (Negative) Hyaline Casts (0-2) /lpf Urine Mucus (None) /hpf Serum Alcohol 328 H* mg/dL 06/15/22 Range/Units 06:55 WBC (3.8-10.6) k/uL Plt Count (150-450) k/uL Neutrophils # (1.3-7.7) k/uL Monocytes # (0-1.0) k/uL Carbon Dioxide (22-30) mmol/L BUN (9-20) mg/dL Glucose (74-99) mg/dL POC Glucose (mg/dL) (70-110) mg/dL AST (17-59) U/L ALT (4-49) U/L Alkaline Phosphatase (38-126) U/L Total Protein (6.3-8.2) g/dL Albumin (3.5-5.0) g/dL Amylase (30-110) U/L Urine Protein 1+ H (Negative) Urine Ketones 2+ H (Negative) Urine Blood Trace H (Negative) Hyaline Casts 8 H (0-2) /lpf Urine Mucus Rare H (None) /hpf Serum Alcohol mg/dL
[2022-06-15] MEDS: RIVAROXABAN 2.5 MG TABLET PO SCH (20:42)
[2022-06-15] MEDS: GABAPENTIN 300 MG CAP PO SCH (22:49)
[2022-06-16] MEDS: AMPICILLIN-SULBACTAM 1.5 GM in SODIUM CHLORIDE 0.9% 50 ML IVPB SCH ×4 (00:32→18:02)
[2022-06-16] MEDS: LORazepam 0.5 MG TAB PO PRN ×4 (00:32→14:09)
[2022-06-16] MEDS: SODIUM CHLORIDE 0.9% 1,000 ML IV SCH ×3 (00:34→13:51)
[2022-06-16] MEDS: ACETAMINOPHEN TAB 325 MG TAB PO PRN (04:18)
[2022-06-16 06:13] LABS: ALT 39 U/L (4-49); AST 37 U/L (17-59); African American GFR (CKD) >90 (>60 ml/min/1.73 sqM); Albumin 3.4 g/dL (3.5-5.0); Albumin/Globulin Ratio 1.2; Alkaline Phosphatase 88 U/L (38-126); Anion Gap 12 mmol/L; Blood Urea Nitrogen 6 mg/dL (9-20); Calcium 8.5 mg/dL (8.4-10.2); Carbon Dioxide 22 mmol/L (22-30); Chloride 100 mmol/L (98-107); Globulin 2.8 g/dL; Glucose 152 mg/dL (74-99); Non-African American GFR(CKD) >90 (>60 ml/min/1.73 sqM); Potassium 3.5 mmol/L (3.5-5.1); Sodium 134 mmol/L (137-145); Total Bilirubin 0.6 mg/dL (0.2-1.3); Total Protein 6.2 g/dL (6.3-8.2)
[2022-06-16] MEDS: PANTOPRAZOLE 40 MG TABLET PO SCH (06:24)
[2022-06-16 06:37] LABS: MCH 32.8 pg (25.0-35.0); MCHC 34.4 g/dL (31.0-37.0); MCV 95.1 fL (80.0-100.0); Mean Platelet Volume 7.9; Platelet Count 300 k/uL (150-450); RBC 3.47 m/uL (4.30-5.90); RDW 13.6 % (11.5-15.5); WBC 20.4 k/uL (3.8-10.6)
[2022-06-16 07:03] LABS: HGB 11.4 gm/dL (13.0-17.5)
--- NOTE | 2022-06-16 08:51 | XR ---
EXAMINATION TYPE: XR chest 1V portable DATE OF EXAM: 06/16/2022 HISTORY: Shortness of breath. COMPARISON: 06/15/22 TECHNIQUE: Single view of the chest is submitted. FINDINGS: Demonstrated are scattered senescent parenchymal change. There is no evidence for focal infiltrate. The heart is stable. Hilar and mediastinal structures are within normal limits. Degenerative changes are seen of the dorsal spine. IMPRESSION: 1. Chronic changes without evidence for acute pulmonary disease.
[2022-06-16] MEDS: FOLIC ACID 1 MG TAB PO SCH (08:52)
[2022-06-16] MEDS: THIAMINE 100 MG TAB PO SCH (08:59)
[2022-06-16] MEDS: GABAPENTIN 300 MG CAP PO SCH ×3 (08:59→21:03)
[2022-06-16] MEDS: diazePAM 2 MG TAB PO SCH ×3 (08:59→21:03)
[2022-06-16] MEDS: RIVAROXABAN 2.5 MG TABLET PO SCH ×2 (08:59→21:03)
--- NOTE | 2022-06-16 14:30 | P.PN ---
Subjective Progress Note Date: 06/16/22 (delayed charting seen at 0830) Patient is a 57-year-old male with history of alcohol abuse, seizure disorder, chronic low back pain with recent steroid injection, irritable bowel syndrome, and multiple other comorbid conditions who presented to the ER via EMS for intoxication. In the ER he underwent an extensive evaluation. On arrival he was tachycardic with a heart rate of 110 and blood pressure of 98/64. Chest x- ray showed a right lower lobe infiltrate not significantly changed from prior exam. He was started on Zosyn, CIWA protocol, and IV fluids. Results are made for admission. Several hours after admission he spiked a fever of 101 and became increasingly tachycardic. He was given additional fluid boluses and started on Valium. He continued to spike fevers. Patient seen and examined at bedside. He is sleeping today. He awakes to voice. He reports that he is still feeling "ill". He states he has been trying to cough, he denies being short of breath. He is still having some upset stomach, but his vomiting has subsided. Despite being sleeping when I entered the room he is asking for additional Ativan for his alcohol withdrawal. He has no signs of tremors. He is not diaphoretic. General: Ill appearing, mild distress, appears older than stated age, disheveled Derm: warm, dry, no diaphoresis Head: atraumatic, normocephalic, symmetric Eyes: EOMI, no lid lag, anicteric sclera Mouth: no lip lesion, mucus membranes moist Cardiovascular: S1S2 reg, no murmur, positive posterior tibial pulse bilateral, Lungs: Coarse breath sounds bilateral bases, no rhonchi, no rales , no accessory muscle use Abdominal: soft, nontender to palpation, no guarding, no appreciable organomegaly Ext: no gross muscle atrophy, no edema, no contractures Neuro: CN II-XI grossly intact, no focal neuro deficits, no tremors Psych: Alert, oriented, appears anxious, Assessment/plan: Aspiration pneumonia, right-sided with sepsis -Continue with Unasyn - continue with IV fluids - blood cultures negative to date -Await MRSA nasal swab with history of MRSA skin infection -Pulmonary hygiene Alcohol withdrawal, alcohol intoxication on admission Alcohol dependency - continue oral valium - CIWA - Thiamine, Folic Acid Chronic back pain -Recent epidural steroid injection Prior DVT -Patient on Xarelto Hypoglycemia, resolved Transaminitis, resolved Thrombocytosis, resolved Active Medications Generic Name Dose Route Start Last Admin Trade Name Freq PRN Reason Stop Dose Admin Acetaminophen 650 mg 06/15/22 08:22 06/16/22 04:18 Acetaminophen Tab 325 Mg Tab PO 650 mg Q6HR PRN Administration Fever and/ or Pain Diazepam 2 mg 06/15/22 09:00 06/16/22 08:59 Diazepam 2 Mg Tab PO 2 mg TID ARCHIE Administration Folic Acid 1 mg 06/16/22 09:00 06/16/22 08:52 Folic Acid 1 Mg Tab PO Not Given DAILY ARCHIE Gabapentin 600 mg 06/15/22 22:00 06/16/22 08:59 Gabapentin 300 Mg Cap PO 600 mg TID ARCHIE Administration Sodium Chloride 1,000 mls @ 130 mls/hr 06/15/22 02:15 06/16/22 13:51 Saline 0.9% IV 130 mls/hr .[id number] ARCHIE Administration Ampicillin Sodium/Sulbactam 50 mls @ 100 mls/hr 06/15/22 06:00 06/16/22 11:41 Sodium 1.5 gm/ Sodium Chloride IVPB 100 mls/hr Q6HR ARCHIE Administration Protocol Lorazepam 0.5 mg 06/15/22 02:40 06/16/22 14:09 Lorazepam 0.5 Mg Tab PO 0.5 mg Q4HR PRN Administration Ciwa 4 To 5 Lorazepam 1 mg 06/15/22 02:40 Lorazepam 1 Mg Tab PO Q4HR PRN Ci[place] 6 To 7 Lorazepam 2 mg 06/15/22 02:40 Lorazepam 1 Mg Tab PO Q2HR PRN Ciwa 10 or greater Lorazepam 2 mg 06/15/22 02:40 Lorazepam 1 Mg Tab PO Q3HR PRN Ciwa 8 To 9 Naloxone HCl 0.2 mg 06/15/22 02:38 Naloxone 0.4 Mg/Ml 1 Ml Vial IV Q2M PRN Opioid Reversal Pantoprazole Sodium 40 mg 06/16/22 07:30 06/16/22 06:24 Pantoprazole 40 Mg Tablet PO 40 mg [id number] ARCHIE Administration Rivaroxaban 2.5 mg 06/15/22 21:00 06/16/22 08:59 Rivaroxaban 2.5 Mg Tablet PO 2.5 mg BID ARCHIE Administration Protocol Thiamine HCl 100 mg 06/16/22 09:00 06/16/22 08:59 Thiamine 100 Mg Tab PO 100 mg DAILY ARCHIE Administration Objective - Vital Signs Vital signs: Vital Signs Temp 98.2 F 06/16/22 14:12 Pulse 88 06/16/22 14:12 Resp 26 H 06/16/22 14:12 BP 117/84 06/16/22 14:12 Pulse Ox 98 06/16/22 14:12 FiO2 Intake & Output 06/15/22 06/16/22 06/16/22 18:59 06:59 18:59 Intake Total 725 Output Total 1400 900 Balance 725 -1400 -900 Intake: Oral 725 Output: Urine 1400 900 Other: # Voids 1 1 - Labs CBC & Chem 7: 06/16/22 05:27 06/16/22 05:27 Labs: Abnormal Lab Results - Last 24 Hours (Table) 06/16/22 06/16/22 Range/Units 05:27 05:27 WBC 20.4 H (3.8-10.6) k/uL RBC 3.47 L (4.30-5.90) m/uL Hgb 11.4 L D (13.0-17.5) gm/dL Hct 33.0 L (39.0-53.0) % Sodium 134 L (137-145) mmol/L BUN 6 L (9-20) mg/dL Creatinine 0.40 L (0.66-1.25) mg/dL Glucose 152 H (74-99) mg/dL Total Protein 6.2 L (6.3-8.2) g/dL Albumin 3.4 L (3.5-5.0) g/dL Microbiology - Last 24 Hours (Table) 06/15/22 09:39 Blood Culture - Preliminary Blood No Growth after 24 hours 06/15/22 02:30 Blood Culture - Preliminary Blood No Growth after 24 hours
[2022-06-17] MEDS: AMPICILLIN-SULBACTAM 1.5 GM in SODIUM CHLORIDE 0.9% 50 ML IVPB SCH ×5 (00:05→23:49)
[2022-06-17] MEDS: SODIUM CHLORIDE 0.9% 1,000 ML IV SCH ×4 (00:06→23:51)
[2022-06-17] MEDS: LORazepam 0.5 MG TAB PO PRN ×5 (01:35→19:37)
[2022-06-17] MEDS: ACETAMINOPHEN TAB 325 MG TAB PO PRN ×2 (02:01→19:37)
[2022-06-17] MEDS: PANTOPRAZOLE 40 MG TABLET PO SCH (06:28)
[2022-06-17] MEDS: FOLIC ACID 1 MG TAB PO SCH (07:28)
[2022-06-17] MEDS: GABAPENTIN 300 MG CAP PO SCH ×3 (07:28→23:48)
[2022-06-17] MEDS: diazePAM 2 MG TAB PO SCH ×3 (07:28→23:48)
[2022-06-17] MEDS: THIAMINE 100 MG TAB PO SCH (07:28)
[2022-06-17] MEDS: RIVAROXABAN 2.5 MG TABLET PO SCH ×2 (07:28→19:36)
[2022-06-17 07:39] LABS: HCT 33.5 % (39.0-53.0); HGB 11.5 gm/dL (13.0-17.5); MCH 33.3 pg (25.0-35.0); MCHC 34.4 g/dL (31.0-37.0); MCV 96.8 fL (80.0-100.0); Mean Platelet Volume 7.7; Platelet Count 232 k/uL (150-450); RBC 3.46 m/uL (4.30-5.90); RDW 12.9 % (11.5-15.5); WBC 9.5 k/uL (3.8-10.6)
[2022-06-17 08:04] LABS: African American GFR (CKD) >90 (>60 ml/min/1.73 sqM); Anion Gap 11 mmol/L; Blood Urea Nitrogen 4 mg/dL (9-20); Calcium 8.6 mg/dL (8.4-10.2); Carbon Dioxide 23 mmol/L (22-30); Chloride 100 mmol/L (98-107); Glucose 128 mg/dL (74-99); Magnesium 1.6 mg/dL (1.6-2.3); Non-African American GFR(CKD) >90 (>60 ml/min/1.73 sqM); Phosphorus 2.1 mg/dL (2.5-4.5); Potassium 3.4 mmol/L (3.5-5.1); Sodium 134 mmol/L (137-145)
[2022-06-17] MEDS ORDERED: POTASSIUM CHLORIDE ER 20 MEQ TAB.ER PO STA (09:06)
[2022-06-17] MEDS: MAGNESIUM SULFATE-D5W PMX 1 GM in DEXTROSE/WATER 1 100ML.BAG IVPB SCH ×3 (10:05→12:42)
[2022-06-17] MEDS: POTAS-SOD-PHOS 278-164-250 MG 1 EACH PACKET PO SCH ×3 (10:13→23:49)
[2022-06-17] MEDS ORDERED: clonazePAM 0.5 MG TAB PO ONE (21:00)
[2022-06-18] MEDS ORDERED: CALCIUM CARBONATE 500 MG CHEWABLE PO PRN (01:56)
[2022-06-18] MEDS ORDERED: ZOLPIDEM 5 MG TAB PO PRN (02:06)
[2022-06-18 04:07] VITALS: RESP 18
[2022-06-18] MEDS: AMPICILLIN-SULBACTAM 1.5 GM in SODIUM CHLORIDE 0.9% 50 ML IVPB SCH (06:08)
[2022-06-18] MEDS: PANTOPRAZOLE 40 MG TABLET PO SCH (06:18)
[2022-06-18] MEDS: SODIUM CHLORIDE 0.9% 1,000 ML IV SCH (06:19)
[2022-06-18] MEDS: FOLIC ACID 1 MG TAB PO SCH (07:22)
[2022-06-18] MEDS: diazePAM 2 MG TAB PO SCH (07:22)
[2022-06-18] MEDS: THIAMINE 100 MG TAB PO SCH (07:22)
[2022-06-18] MEDS: GABAPENTIN 300 MG CAP PO SCH (07:22)
[2022-06-18] MEDS: RIVAROXABAN 2.5 MG TABLET PO SCH (07:23)
[2022-06-18] MEDS: LORazepam 0.5 MG TAB PO PRN (07:23)
[2022-06-18 08:10] LABS: HGB 11.5 gm/dL (13.0-17.5); MCH 32.9 pg (25.0-35.0); MCHC 33.9 g/dL (31.0-37.0); MCV 97.1 fL (80.0-100.0); Mean Platelet Volume 8.1; Platelet Count 262 k/uL (150-450); RDW 12.9 % (11.5-15.5)
[2022-06-18 08:32] LABS: ALT 41 U/L (4-49); AST 30 U/L (17-59); African American GFR (CKD) >90 (>60 ml/min/1.73 sqM); Albumin 3.4 g/dL (3.5-5.0); Albumin/Globulin Ratio 1.2; Alkaline Phosphatase 81 U/L (38-126); Anion Gap 10 mmol/L; Blood Urea Nitrogen 10 mg/dL (9-20); Calcium 8.6 mg/dL (8.4-10.2); Carbon Dioxide 23 mmol/L (22-30); Chloride 102 mmol/L (98-107); Globulin 2.8 g/dL; Glucose 120 mg/dL (74-99); Magnesium 1.7 mg/dL (1.6-2.3); Non-African American GFR(CKD) >90 (>60 ml/min/1.73 sqM); Phosphorus 3.4 mg/dL (2.5-4.5); Potassium 3.8 mmol/L (3.5-5.1); Sodium 135 mmol/L (137-145); Total Bilirubin 0.4 mg/dL (0.2-1.3); Total Protein 6.2 g/dL (6.3-8.2)
--- NOTE | 2022-06-18 08:49 | P.PN ---
Subjective Progress Note Date: 06/17/22 (delayed charting seen on 06/17/22 at 0815) Patient is a 57-year-old male with history of alcohol abuse, seizure disorder, chronic low back pain with recent steroid injection, irritable bowel syndrome, and multiple other comorbid conditions who presented to the ER via EMS for intoxication. In the ER he underwent an extensive evaluation. On arrival he was tachycardic with a heart rate of 110 and blood pressure of 98/64. Chest x- ray showed a right lower lobe infiltrate not significantly changed from prior exam. He was started on Zosyn, CIWA protocol, and IV fluids. Results are made for admission. Several hours after admission he spiked a fever of 101 and became increasingly tachycardic. He was given additional fluid boluses and started on Valium. He continued to spike fevers. Patient seen and examined at bedside. He is sleeping and awakes to voice. He then tells me that he hasn't been able to sleep in days and is asking for IV ativan to help him sleep. I explained that we do not routinely give IV ativan for sleep and that he has oral ativan for withdrawal. He has been trying to cough and has some shortness of breath. General: Ill appearing, no distress, appears older than stated age, disheveled Derm: warm, dry, no diaphoresis Head: atraumatic, normocephalic, symmetric Eyes: EOMI, no lid lag, anicteric sclera Mouth: no lip lesion, mucus membranes moist Cardiovascular: S1S2 reg, no murmur, positive posterior tibial pulse bilateral, Lungs: Coarse breathsounds bilateral bases, no rhonchi, no rales , no accessory muscle use Abdominal: soft, nontender to palpation, no guarding, no appreciable organomegaly Ext: no gross muscle atrophy, no edema, no contractures Neuro: CN II-XI grossly intact, no focal neuro deficits, no tremors Psych: Alert, oriented, appears anxious, Assessment/plan: Aspiration pneumonia, right-sided with sepsis -Continue with Unasyn still had fevers this morning -Continue with IV fluids - blood cultures negative to date -MRSA nasal swab negative -Pulmonary hygiene Alcohol withdrawal, alcohol intoxication on admission Alcohol dependency - continue oral valium - CIWA - Thiamine, Folic Acid Chronic back pain -Recent epidural steroid injection Prior DVT -Patient on Xarelto Hypoglycemia, resolved Transaminitis, resolved Thrombocytosis, resolved Active Medications Generic Name Dose Route Start Last Admin Trade Name Freq PRN Reason Stop Dose Admin Acetaminophen 650 mg 06/15/22 08:22 06/17/22 19:37 Acetaminophen Tab 325 Mg Tab PO 650 mg Q6HR PRN Administration Fever and/ or Pain Calcium Carbonate/Glycine 1,000 mg 06/18/22 01:56 06/18/22 02:11 Calcium Carbonate 500 Mg Chewable PO 1,000 mg QID PRN Administration Heartburn Diazepam 2 mg 06/15/22 09:00 06/18/22 07:22 Diazepam 2 Mg Tab PO 2 mg TID ARCHIE Administration Folic Acid 1 mg 06/16/22 09:00 06/18/22 07:22 Folic Acid 1 Mg Tab PO Not Given DAILY ARCHIE Gabapentin 600 mg 06/15/22 22:00 06/18/22 07:22 Gabapentin 300 Mg Cap PO 600 mg TID ARCHIE Administration Sodium Chloride 1,000 mls @ 130 mls/hr 06/15/22 02:15 06/18/22 06:19 Saline 0.9% IV 130 mls/hr .[id number] ARCHIE Administration Ampicillin Sodium/Sulbactam 50 mls @ 100 mls/hr 06/15/22 06:00 06/18/22 06:08 Sodium 1.5 gm/ Sodium Chloride IVPB 100 mls/hr Q6HR ARCHIE Administration Protocol Lorazepam 0.5 mg 06/15/22 02:40 06/18/22 07:23 Lorazepam 0.5 Mg Tab PO 0.5 mg Q4HR PRN Administration Ciwa 4 To 5 Lorazepam 1 mg 06/15/22 02:40 Lorazepam 1 Mg Tab PO Q4HR PRN Ciwa 6 To 7 Lorazepam 2 mg 06/15/22 02:40 Lorazepam 1 Mg Tab PO Q2HR PRN Ciwa 10 or greater Lorazepam 2 mg 06/15/22 02:40 Lorazepam 1 Mg Tab PO Q3HR PRN Ciwa 8 To 9 Naloxone HCl 0.2 mg 06/15/22 02:38 Naloxone 0.4 Mg/Ml 1 Ml Vial IV Q2M PRN Opioid Reversal Pantoprazole Sodium 40 mg 06/16/22 07:30 06/18/22 06:18 Pantoprazole 40 Mg Tablet PO 40 mg AC-BRKFST ARCHIE Administration Rivaroxaban 2.5 mg 06/15/22 21:00 06/18/22 07:23 Rivaroxaban 2.5 Mg Tablet PO 2.5 mg BID ARCHIE Administration Protocol Thiamine HCl 100 mg 06/16/22 09:00 06/18/22 07:22 Thiamine 100 Mg Tab PO 100 mg DAILY ARCHIE Administration Zolpidem Tartrate 10 mg 06/18/22 02:06 06/18/22 02:11 Zolpidem 5 Mg Tab PO 10 mg HS PRN Administration Insomnia Objective - Vital Signs Vital signs: Vital Signs Temp 98.9 F 06/18/22 01:39 Pulse 93 06/18/22 01:39 Resp 18 06/18/22 01:39 BP 123/78 06/18/22 01:39 Pulse Ox 96 06/18/22 01:39 FiO2 Intake & Output 06/17/22 06/18/22 06/18/22 18:59 06:59 18:59 Intake Total 365 Output Total 600 Balance -235 Intake: Oral 365 Output: Urine 600 Other: # Voids 1 - Labs CBC & Chem 7: 06/18/22 07:34 06/18/22 07:34 Labs: Abnormal Lab Results - Last 24 Hours (Table) 06/18/22 06/18/22 Range/Units 07:34 07:34 RBC 3.50 L (4.30-5.90) m/uL Hgb 11.5 L (13.0-17.5) gm/dL Hct 34.0 L (39.0-53.0) % Sodium 135 L (137-145) mmol/L Creatinine 0.36 L (0.66-1.25) mg/dL Glucose 120 H (74-99) mg/dL Total Protein 6.2 L (6.3-8.2) g/dL Albumin 3.4 L (3.5-5.0) g/dL Microbiology - Last 24 Hours (Table) 06/15/22 02:30 Blood Culture - Preliminary Blood No Growth after 72 hours 06/16/22 09:00 Nasal Screen MRSA/MSSA - Final Nasal Swab 06/15/22 09:39 Blood Culture - Preliminary Blood No Growth after 48 hours
--- NOTE | 2022-06-18 08:52 | P.DS ---
Providers Date of admission: 06/15/22 08:24 Expected date of discharge: 06/18/22 Attending physician: Michele Ross MD Primary care physician: Stated None Hospital Course: Discharge Diagnosis: Aspiration pneumonia, right-sided with sepsis Alcohol withdrawal, alcohol intoxication on admission Alcohol dependency Alcholic gastritis Chronic back pain Prior DVT Hospital Course: Patient is a 57-year-old male with history of alcohol abuse, seizure disorder, chronic low back pain with recent steroid injection, irritable bowel syndrome, and multiple other comorbid conditions who presented to the ER via EMS for intoxication. In the ER he underwent an extensive evaluation. On arrival he was tachycardic with a heart rate of 110 and blood pressure of 98/64. Chest x- ray showed a right lower lobe infiltrate not significantly changed from prior exam. He was started on Zosyn, CIWA protocol, and IV fluids. Results are made for admission. Several hours after admission he spiked a fever of 101 and became increasingly tachycardic. He was given additional fluid boluses and started on Valium. He continued to spike fevers. He was maintained on Unasyn. MRSA nasal swab was completed and was negative for signs of nurse. His fevers abated. He is up and ambulating in the hallways and tolerating a diet. He was determined stable for discharge. Follow-up: [facility]. He will take Augmentin for an additional 5 days. He was also started on Protonix for presumed alcoholic gastritis. Patient seen and examined at bedside. He is complaining that he has not slept. He did receive Ambien 10 mg last night. We again discussed that he will not be getting IV Ativan for sleep. He was up and ambulating in the halls this morning and is currently eating breakfast. Vital signs reviewed and stable. General: nontoxic, no distress, appears at stated age Derm: warm, dry Head: atraumatic, normocephalic, symmetric Eyes: EOMI, no lid lag, anicteric sclera Mouth: no lip lesion, mucus membranes moist Cardiovascular: S1S2 reg, no murmur, positive posterior tibial pulse bilateral, Lungs: CTA bilateral, no rhonchi, no rales , no accessory muscle use Abdominal: soft, nontender to palpation, no guarding, no appreciable organomegaly Ext: no gross muscle atrophy, no edema, no contractures Neuro: CN II-XI grossly intact, no focal neuro deficits Psych: Alert, oriented, angry A total of 35 minutes of time were spent preparing this complex discharge summary. Patient was discharged on 06/18/22. Patient Condition at Discharge: Stable Plan - Discharge Summary Discharge Rx Participant: No New Discharge Prescriptions: New Amoxic-Pot Clav 875-125Mg [Augmentin 875-125] 1 tab PO BID 5 Days #10 tab Folic Acid 1 mg PO DAILY #0 tab Pantoprazole [Protonix] 40 mg PO AC-BRKFST #30 tab Thiamine [Vitamin B-1] 100 mg PO DAILY tab Continue Rivaroxaban [Xarelto] 2.5 mg PO BID Trihexyphenidyl [Artane] 2 mg PO TID PRN PRN Reason: Spasms Ondansetron Odt [Zofran ODT] 8 mg PO Q8HR PRN PRN Reason: Nausea And Vomiting clonazePAM [KlonoPIN] 1 mg PO TID Gabapentin 600 mg PO TID Naproxen [Naprosyn] 500 mg PO BID PRN PRN Reason: Pain Discontinued Butalb/Acetaminophen/Caffeine [Fioricet 50-300-40 mg Capsule] 1 - 2 cap PO Q4HR PRN PRN Reason: Migraine Headache Baclofen [Lioresal] 20 mg PO QID PRN PRN Reason: muscle spasms Discharge Medication List clonazePAM [KlonoPIN] 1 mg PO TID 04/03/22 [History] Gabapentin 600 mg PO TID 06/01/22 [History] Rivaroxaban [Xarelto] 2.5 mg PO BID 06/01/22 [History] Trihexyphenidyl [Artane] 2 mg PO TID PRN 06/01/22 [History] Naproxen [Naprosyn] 500 mg PO BID PRN 06/10/22 [History] Ondansetron Odt [Zofran ODT] 8 mg PO Q8HR PRN 06/10/22 [History] Amoxic-Pot Clav 875-125Mg [Augmentin 875-125] 1 tab PO BID 5 Days #10 tab 06/18/22 [Rx] Folic Acid 1 mg PO DAILY #0 tab 06/18/22 [Rx] Pantoprazole [Protonix] 40 mg PO AC-BRKFST #30 tab 06/18/22 [Rx] Thiamine [Vitamin B-1] 100 mg PO DAILY tab 06/18/22 [Rx] Follow up Appointment(s)/Referral(s): None,Stated [Primary Care Provider] - 1-2 days [facility] [NON-STAFF] - 1 Week Activity/Diet/Wound Care/Special Instructions: Activity: as tolerated Diet: regular Special Instructions: Abstain from Alcohol Discharge/Stand Alone Forms: AA Meetings [facility], [facility], Outpatient Counseling, In Substance Abuse Facilities Discharge Disposition: HOME SELF-CARE
[2022-06-18 09:18] VITALS: BP 136/88; PULSE 84; TEMP 99
== END 2022-06-18 09:55 | disposition home or self-care (01) | DRG 871 ==
LOC: EC 00:27 → 6NMEDSUR 02:39 → OBSVTOIN 08:24
PROVIDERS: ADMIT Internal Medicine; ATTEND Internal Medicine
PROC: HZ2ZZZZ Detoxification Services for Substance Abuse Treatment (ICD-10-PCS; principal; 2022-06-15)
DX: A41.9 Sepsis, unspecified organism (principal); J69.0 Pneumonitis due to inhalation of food and vomit; F10.239 Alcohol dependence with withdrawal, unspecified; F10.229 Alcohol dependence with intoxication, unspecified; D75.839 Thrombocytosis, unspecified; E16.2 Hypoglycemia, unspecified; K58.9 Irritable bowel syndrome, unspecified; R60.0 Localized edema; F17.210 Nicotine dependence, cigarettes, uncomplicated; F20.9 Schizophrenia, unspecified; K29.20 Alcoholic gastritis without bleeding; F31.9 Bipolar disorder, unspecified; F41.9 Anxiety disorder, unspecified; F90.9 Attention-deficit hyperactivity disorder, unspecified type; M41.9 Scoliosis, unspecified; G40.909 Epilepsy, unspecified, not intractable, without status epilepticus; G47.00 Insomnia, unspecified; M54.9 Dorsalgia, unspecified; G89.29 Other chronic pain; J84.10 Pulmonary fibrosis, unspecified; G62.9 Polyneuropathy, unspecified; Y90.8 Blood alcohol level of 240 mg/100 ml or more; Z79.01 Long term (current) use of anticoagulants; Z79.899 Other long term (current) drug therapy; Z86.14 Personal history of Methicillin resistant Staphylococcus aureus infection; Z86.718 Personal history of other venous thrombosis and embolism; Z87.01 Personal history of pneumonia (recurrent); Z88.1 Allergy status to other antibiotic agents; Z88.8 Allergy status to other drugs, medicaments and biological substances; Z91.013 Allergy to seafood; Z88.6 Allergy status to analgesic agent; Z87.19 Personal history of other diseases of the digestive system; Z87.828 Personal history of other (healed) physical injury and trauma
CPT/HCPCS: 36415; 71045; 80048; 80053; 80320; 81001; 82150; 83690; 83735; 84100; 85025; 85027; 87040; 87070; 96361; 96365; 96366; 96375; 99285

== ENCOUNTER 2022-06-19 02:08 | Emergency (ER) | payer MEDICARE, OTHER ==
[2022-06-19 02:16] VITALS: BP 111/87; PULSE 96; RESP 18; TEMP 98
[2022-06-19] MEDS ORDERED: DIPHENOX-ATROP 2.5-0.025 MG 1 EACH TAB PO STA (02:32)
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
[2022-06-19] MEDS ORDERED: clonazePAM 0.5 MG TAB PO STA (03:02)
[2022-06-19] MEDS ORDERED: clonazePAM 1 MG TAB PO STA (03:03)
== END 2022-06-19 03:11 | disposition home or self-care (01) ==
LOC: EC 02:08
DX: K52.1 Toxic gastroenteritis and colitis (principal); F90.9 Attention-deficit hyperactivity disorder, unspecified type; F41.9 Anxiety disorder, unspecified; F31.9 Bipolar disorder, unspecified; F17.200 Nicotine dependence, unspecified, uncomplicated; F11.20 Opioid dependence, uncomplicated; Z88.8 Allergy status to other drugs, medicaments and biological substances; Z91.013 Allergy to seafood; Z88.1 Allergy status to other antibiotic agents; Z88.6 Allergy status to analgesic agent
CPT/HCPCS: 99284

== ENCOUNTER 2022-06-26 20:32 | Emergency (ER) | payer MEDICARE, OTHER ==
[2022-06-26 20:42] VITALS: BP 144/98; PULSE 111; RESP 18; TEMP 98.9
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
[2022-06-26] MEDS ORDERED: clonazePAM 0.5 MG TAB PO STA (22:30)
[2022-06-26] MEDS ORDERED: LORazepam 1 MG TAB PO STA (22:30)
== END 2022-06-26 22:47 | disposition home or self-care (01) ==
LOC: EC 20:32
DX: F41.9 Anxiety disorder, unspecified (principal); F10.129 Alcohol abuse with intoxication, unspecified; F13.239 Sedative, hypnotic or anxiolytic dependence with withdrawal, unspecified; F90.9 Attention-deficit hyperactivity disorder, unspecified type; F31.9 Bipolar disorder, unspecified; F17.200 Nicotine dependence, unspecified, uncomplicated; F11.20 Opioid dependence, uncomplicated; Z79.899 Other long term (current) drug therapy; Z91.013 Allergy to seafood; Z88.0 Allergy status to penicillin; Z88.6 Allergy status to analgesic agent; Z88.1 Allergy status to other antibiotic agents
CPT/HCPCS: 99284

== ENCOUNTER 2022-06-27 14:40 | Emergency (ER) | payer MEDICARE, OTHER ==
[2022-06-27 14:56] VITALS: TEMP 98.1
[2022-06-27] MEDS ORDERED: SODIUM CHLORIDE 0.9% 500 ML 500 ML IV ONE (15:37)
[2022-06-27] MEDS ORDERED: SODIUM CHLORIDE 0.9% 1,000 ML IV ONE (15:37)
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
[2022-06-27 17:04] LABS: Basophils # (A) 0.1 k/uL (0-0.2); Basophils % (A) 1 %; Eosinophils # (A) 0.3 k/uL (0-0.7); Eosinophils % (A) 4 %; HCT 36.1 % (39.0-53.0); HGB 12.1 gm/dL (13.0-17.5); Lymphocytes # (A) 2.4 k/uL (1.0-4.8); Lymphocytes % (A) 37 %; MCH 32.3 pg (25.0-35.0); MCHC 33.4 g/dL (31.0-37.0); MCV 96.7 fL (80.0-100.0); Mean Platelet Volume 7.3; Monocytes # (A) 0.3 k/uL (0-1.0); Monocytes % (A) 5 %; Neutrophils # (A) 3.4 k/uL (1.3-7.7); Neutrophils % (A) 51 %; Platelet Count 510 k/uL (150-450); RBC 3.74 m/uL (4.30-5.90); RDW 13.6 % (11.5-15.5); WBC 6.5 k/uL (3.8-10.6)
[2022-06-27 17:16] LABS: ALT 24 U/L (4-49); AST 17 U/L (17-59); African American GFR (CKD) >90 (>60 ml/min/1.73 sqM); Albumin 3.8 g/dL (3.5-5.0); Alkaline Phosphatase 74 U/L (38-126); Anion Gap 10 mmol/L; Blood Urea Nitrogen 6 mg/dL (9-20); Calcium 8.6 mg/dL (8.4-10.2); Carbon Dioxide 24 mmol/L (22-30); Chloride 107 mmol/L (98-107); Glucose 90 mg/dL (74-99); Non-African American GFR(CKD) >90 (>60 ml/min/1.73 sqM); Potassium 4.1 mmol/L (3.5-5.1); Sodium 141 mmol/L (137-145); Total Bilirubin 0.2 mg/dL (0.2-1.3); Total Protein 6.6 g/dL (6.3-8.2)
[2022-06-27 17:21] LABS: Alcohol 211 mg/dL
[2022-06-27 19:04] LABS: Amphetamine Screen,Urine Not Detected (NotDetected); Barbiturate Screen,Urine Detected (NotDetected); Benzodiazepines Screen,Urine Detected (NotDetected); Cocaine Screen,Urine Not Detected (NotDetected); Methadone Screen, Urine Not Detected (NotDetected); Opiate Screen,Urine Not Detected (NotDetected); Oxycodone Screen, Urine Not Detected (NotDetected); Phencyclidine Screen,Urine Not Detected (NotDetected); Tricyclic Antidepressant,Urine Not Detected (NotDetected); Urn Cannabinoid Scrn Not Detected (NotDetected)
[2022-06-27 20:53] VITALS: BP 139/95; PULSE 99; RESP 18
== END 2022-06-27 20:53 | disposition home or self-care (01) ==
LOC: EC 14:40
DX: F10.929 Alcohol use, unspecified with intoxication, unspecified (principal); F17.200 Nicotine dependence, unspecified, uncomplicated; F90.9 Attention-deficit hyperactivity disorder, unspecified type; F41.9 Anxiety disorder, unspecified; Z91.013 Allergy to seafood; Z88.0 Allergy status to penicillin; Z88.1 Allergy status to other antibiotic agents; Z88.6 Allergy status to analgesic agent; Z79.899 Other long term (current) drug therapy
CPT/HCPCS: 36415; 80053; 83735; 85025; 80306; 99284; 96360; G0480; 80320

== ENCOUNTER 2022-06-27 23:05 | Emergency (ER) | payer MEDICARE, OTHER ==
[2022-06-27] MEDS ORDERED: LORazepam 1 MG TAB PO STA ×2 (23:15→23:41)
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
[2022-06-27 23:47] VITALS: BP 121/89; PULSE 92; RESP 16; TEMP 98
== END 2022-06-27 23:46 | disposition home or self-care (01) ==
LOC: EC 23:05
DX: F41.9 Anxiety disorder, unspecified (principal); F17.200 Nicotine dependence, unspecified, uncomplicated; F32.A Depression, unspecified; Z88.0 Allergy status to penicillin; Z88.1 Allergy status to other antibiotic agents; Z88.6 Allergy status to analgesic agent; Z91.013 Allergy to seafood
CPT/HCPCS: 99284

== ENCOUNTER 2022-06-28 16:28 | Emergency (ER) | payer MEDICARE, OTHER ==
[2022-06-28 16:54] VITALS: TEMP 98.6
[2022-06-28 17:12] VITALS: BP 139/86; PULSE 87; RESP 16
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
== END 2022-06-28 19:24 | disposition left against medical advice (07) ==
LOC: EC 16:28
DX: Z76.5 Malingerer [conscious simulation] (principal); F41.9 Anxiety disorder, unspecified; F31.9 Bipolar disorder, unspecified; F17.200 Nicotine dependence, unspecified, uncomplicated; Z91.013 Allergy to seafood; Z88.0 Allergy status to penicillin; Z88.8 Allergy status to other drugs, medicaments and biological substances; Z79.899 Other long term (current) drug therapy; Z53.29 Procedure and treatment not carried out because of patient's decision for other reasons
CPT/HCPCS: 99284

== ENCOUNTER 2022-06-28 20:14 | Emergency (ER) | payer MEDICARE, OTHER ==
[2022-06-28 20:40] VITALS: BP 155/93; PULSE 100; RESP 20; TEMP 97.8
[2022-06-28] MEDS ORDERED: chlordiazePOXIDE 25 MG CAP PO STA (21:43)
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
== END 2022-06-28 22:10 | disposition home or self-care (01) ==
LOC: EC 20:14
DX: F10.129 Alcohol abuse with intoxication, unspecified (principal); Y90.9 Presence of alcohol in blood, level not specified; F41.9 Anxiety disorder, unspecified; F31.9 Bipolar disorder, unspecified; F17.200 Nicotine dependence, unspecified, uncomplicated; Z91.013 Allergy to seafood; Z88.1 Allergy status to other antibiotic agents; Z88.8 Allergy status to other drugs, medicaments and biological substances; Z79.899 Other long term (current) drug therapy
CPT/HCPCS: 99284

== ENCOUNTER 2022-06-29 09:45 | Emergency (ER) | payer MEDICARE, OTHER ==
[2022-06-29 09:51] VITALS: BP 138/88; PULSE 80; RESP 15; TEMP 97.9
[2022-06-29] MEDS ORDERED: LORazepam 0.5 MG TAB PO PRN (10:05)
[2022-06-29] MEDS ORDERED: LORazepam 1 MG TAB PO PRN ×4 (10:05)
[2022-06-29] MEDS ORDERED: SODIUM CHLORIDE 0.9% 1,000 ML with THIAMINE 100 MG, FOLIC ACID 1 MG IV ONE ×3 (10:30)
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
[2022-06-29 11:02] LABS: Basophils % (A) 1 %; Eosinophils # (A) 0.1 k/uL (0-0.7); Eosinophils % (A) 2 %; HCT 36.4 % (39.0-53.0); HGB 12.1 gm/dL (13.0-17.5); Lymphocytes # (A) 1.9 k/uL (1.0-4.8); Lymphocytes % (A) 25 %; MCHC 33.4 g/dL (31.0-37.0); MCV 95.9 fL (80.0-100.0); Mean Platelet Volume 7.4; Monocytes # (A) 0.3 k/uL (0-1.0); Monocytes % (A) 4 %; Neutrophils # (A) 4.9 k/uL (1.3-7.7); Neutrophils % (A) 66 %; Platelet Count 523 k/uL (150-450); RBC 3.79 m/uL (4.30-5.90); RDW 13.7 % (11.5-15.5); WBC 7.5 k/uL (3.8-10.6)
[2022-06-29 11:14] LABS: ALT 27 U/L (4-49); AST 25 U/L (17-59); African American GFR (CKD) >90 (>60 ml/min/1.73 sqM); Alkaline Phosphatase 73 U/L (38-126); Anion Gap 11 mmol/L; Blood Urea Nitrogen 11 mg/dL (9-20); Calcium 8.6 mg/dL (8.4-10.2); Carbon Dioxide 21 mmol/L (22-30); Chloride 111 mmol/L (98-107); Glucose 91 mg/dL (74-99); Non-African American GFR(CKD) >90 (>60 ml/min/1.73 sqM); Potassium 4.3 mmol/L (3.5-5.1); Sodium 143 mmol/L (137-145); Total Bilirubin 0.3 mg/dL (0.2-1.3); Total Protein 6.8 g/dL (6.3-8.2)
[2022-06-29 11:17] LABS: Alcohol 204 mg/dL
== END 2022-06-29 14:30 | disposition home or self-care (01) ==
LOC: EC 09:45
DX: F10.929 Alcohol use, unspecified with intoxication, unspecified (principal); F41.9 Anxiety disorder, unspecified; F32.A Depression, unspecified; F17.200 Nicotine dependence, unspecified, uncomplicated; Z79.899 Other long term (current) drug therapy; Z91.013 Allergy to seafood; Z88.0 Allergy status to penicillin; Z88.1 Allergy status to other antibiotic agents; Z88.6 Allergy status to analgesic agent
CPT/HCPCS: 36415; 80053; 85025; 99285; 96360; 96361; G0480; J3411; 80320

== ENCOUNTER 2022-06-29 20:34 | Emergency (ER) | payer MEDICARE, OTHER ==
[2022-06-29 20:45] VITALS: TEMP 97.9
[2022-06-29 21:45] VITALS: RESP 18
--- NOTE | 2022-06-30 00:04 | CT ---
EXAMINATION TYPE: CT brain wo con DATE OF EXAM: 06/29/2022 COMPARISON: 03/11/2022 HISTORY: ETOH, AMS CT DLP: 1154.4 mGycm Automated exposure control for dose reduction was used. Images of the brain obtained with no contrast. Ventricles of normal size. There is no mass effect nor midline shift. No sign of intracranial hemorrh age. The calvarium is intact. No evidence of cerebral edema. The skull base is intact. There is some mild ethmoid and maxillary sinus mucosal thickening. IMPRESSION: Negative CT scan of the brain. There is sinusitis which is not significantly different than old exam.
[2022-06-30 00:56] VITALS: BP 139/92; PULSE 107
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
== END 2022-06-30 04:30 | disposition home or self-care (01) ==
LOC: EC 20:34
DX: F10.10 Alcohol abuse, uncomplicated (principal); F41.9 Anxiety disorder, unspecified; F31.9 Bipolar disorder, unspecified; F17.200 Nicotine dependence, unspecified, uncomplicated; Z91.013 Allergy to seafood; Z88.6 Allergy status to analgesic agent; Z88.8 Allergy status to other drugs, medicaments and biological substances; Z79.899 Other long term (current) drug therapy
CPT/HCPCS: 70450; 99285

== ENCOUNTER 2022-06-30 07:41 | Emergency (ER) | payer MEDICARE, OTHER ==
[2022-06-30 07:51] VITALS: BP 120/95; PULSE 107; RESP 16; TEMP 97
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
== END 2022-06-30 10:16 | disposition home or self-care (01) ==
LOC: EC 07:41
DX: F10.129 Alcohol abuse with intoxication, unspecified (principal); F41.9 Anxiety disorder, unspecified; F31.9 Bipolar disorder, unspecified; F17.200 Nicotine dependence, unspecified, uncomplicated; Z91.013 Allergy to seafood; Z88.0 Allergy status to penicillin; Z88.6 Allergy status to analgesic agent; Z79.899 Other long term (current) drug therapy
CPT/HCPCS: 82075; 99284

== ENCOUNTER 2022-07-01 04:02 | Emergency (ER) | payer MEDICARE, OTHER ==
[2022-07-01 04:15] VITALS: RESP 16; TEMP 98.2
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
[2022-07-01 08:18] VITALS: BP 130/68; PULSE 86
== END 2022-07-01 08:18 | disposition home or self-care (01) ==
LOC: EC 04:02
DX: F10.10 Alcohol abuse, uncomplicated (principal); F90.9 Attention-deficit hyperactivity disorder, unspecified type; F41.9 Anxiety disorder, unspecified; F31.9 Bipolar disorder, unspecified; F17.200 Nicotine dependence, unspecified, uncomplicated; Z79.899 Other long term (current) drug therapy; Z79.891 Long term (current) use of opiate analgesic; Z88.0 Allergy status to penicillin; Z91.013 Allergy to seafood; Z88.6 Allergy status to analgesic agent
CPT/HCPCS: 82075; 99284

== ENCOUNTER 2022-07-01 13:41 | Observation (INO) | payer MEDICARE, OTHER ==
[2022-07-01] MEDS ORDERED: LORazepam 2 MG/ML INJ IV STA (16:07)
[2022-07-01] MEDS ORDERED: SODIUM CHLORIDE 0.9% 1,000 ML IV STA (16:07)
[2022-07-01 16:38] LABS: Basophils # (A) 0.1 k/uL (0-0.2); Basophils % (A) 1 %; Eosinophils # (A) 0.1 k/uL (0-0.7); Eosinophils % (A) 1 %; HCT 38.9 % (39.0-53.0); Lymphocytes # (A) 2.4 k/uL (1.0-4.8); Lymphocytes % (A) 19 %; MCH 31.7 pg (25.0-35.0); MCHC 33.3 g/dL (31.0-37.0); MCV 95.2 fL (80.0-100.0); Mean Platelet Volume 7.2; Monocytes # (A) 0.5 k/uL (0-1.0); Monocytes % (A) 4 %; Neutrophils # (A) 9.3 k/uL (1.3-7.7); Neutrophils % (A) 74 %; Platelet Count 533 k/uL (150-450); RBC 4.09 m/uL (4.30-5.90); RDW 13.1 % (11.5-15.5); WBC 12.6 k/uL (3.8-10.6)
[2022-07-01 16:47] LABS: Potassium 3.7 mmol/L (3.5-5.1)
[2022-07-01 16:48] LABS: ALT 28 U/L (4-49); AST 27 U/L (17-59); African American GFR (CKD) >90 (>60 ml/min/1.73 sqM); Albumin 4.6 g/dL (3.5-5.0); Alkaline Phosphatase 100 U/L (38-126); Anion Gap 16 mmol/L; Blood Urea Nitrogen 10 mg/dL (9-20); Calcium 9.3 mg/dL (8.4-10.2); Carbon Dioxide 22 mmol/L (22-30); Chloride 102 mmol/L (98-107); Glucose 97 mg/dL (74-99); Lipase 137 U/L (23-300); Magnesium 1.7 mg/dL (1.6-2.3); Non-African American GFR(CKD) >90 (>60 ml/min/1.73 sqM); Sodium 140 mmol/L (137-145); Total Bilirubin 0.6 mg/dL (0.2-1.3); Total Protein 7.8 g/dL (6.3-8.2)
[2022-07-01 16:52] LABS: Alcohol 173 mg/dL
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
[2022-07-01] MEDS ORDERED: LORazepam 0.5 MG TAB PO PRN (21:22)
[2022-07-01] MEDS ORDERED: THIAMINE 100 MG/ML 2 ML VIAL IM STA (21:22)
[2022-07-01] MEDS ORDERED: LORazepam 1 MG TAB PO PRN ×2 (21:22)
[2022-07-01] MEDS ORDERED: NALOXONE 0.4 MG/ML 1 ML VIAL IV PRN (21:24)
[2022-07-01] MEDS: LORazepam 1 MG TAB PO PRN (22:03)
[2022-07-01] MEDS: SODIUM CHLORIDE 0.9% 1,000 ML IV SCH (22:04)
[2022-07-02] MEDS: LORazepam 1 MG TAB PO PRN ×4 (00:16→12:29)
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
[2022-07-02] MEDS: NICOTINE 21MG/24HR PATCH TRANSDERM SCH ×2 (04:21→08:13)
[2022-07-02 06:06] LABS: Basophils # (A) 0.1 k/uL (0-0.2); Basophils % (A) 1 %; Eosinophils # (A) 0.2 k/uL (0-0.7); Eosinophils % (A) 3 %; HCT 34.3 % (39.0-53.0); HGB 11.5 gm/dL (13.0-17.5); Lymphocytes # (A) 1.6 k/uL (1.0-4.8); Lymphocytes % (A) 25 %; MCH 32.8 pg (25.0-35.0); MCHC 33.5 g/dL (31.0-37.0); MCV 97.9 fL (80.0-100.0); Mean Platelet Volume 7.6; Monocytes # (A) 0.6 k/uL (0-1.0); Monocytes % (A) 9 %; Neutrophils # (A) 3.8 k/uL (1.3-7.7); Neutrophils % (A) 61 %; Platelet Count 393 k/uL (150-450); WBC 6.3 k/uL (3.8-10.6)
[2022-07-02] MEDS: SODIUM CHLORIDE 0.9% 1,000 ML IV SCH ×3 (06:06→20:32)
[2022-07-02 06:15] LABS: African American GFR (CKD) >90 (>60 ml/min/1.73 sqM); Anion Gap 5 mmol/L; Blood Urea Nitrogen 19 mg/dL (9-20); Calcium 8.7 mg/dL (8.4-10.2); Carbon Dioxide 25 mmol/L (22-30); Chloride 107 mmol/L (98-107); Glucose 94 mg/dL (74-99); Non-African American GFR(CKD) >90 (>60 ml/min/1.73 sqM); Potassium 4.2 mmol/L (3.5-5.1); Sodium 137 mmol/L (137-145)
[2022-07-02] MEDS: THIAMINE 100 MG TAB PO SCH (08:13)
[2022-07-02] MEDS: PANTOPRAZOLE 40 MG TABLET PO SCH (08:13)
[2022-07-02] MEDS ORDERED: ALBUTEROL NEBULIZED 2.5 MG/3 ML INHALATION PRN (10:19)
--- NOTE | 2022-07-02 10:21 | P.PN ---
Subjective Progress Note Date: 07/02/22 Patient is a 57-year-old male with PMH of COPD, seizure disorder, history of alcohol abuse the presents the ED for alcohol intoxication. In the ED, he was noted to be tachycardic with heart rate as high as 138. Vital signs are otherwise stable. CBC showed leukocytosis of 12.6 and hematocrit of 38.9. CMP showed creatinine of 0.44. Magnesium is 1.7. Lipase within normal limits. Serum alcohol 173. Patient is admitted for alcohol intoxication with impending withdrawal. Patient was seen and examined. No acute events overnight. He has received 4 mg of by mouth Ativan since midnight. He continues to report withdrawal-like symptoms. He reports tremors in his bilateral upper extremities. States that he relapsed after his PCP Dr. Srinivasan was unable to prescribe him Suboxone and Klonopin. He reports a history of seizures. General: non toxic, mild distress, appears at stated age, disheveled Derm: warm, dry Head: atraumatic, normocephalic, symmetric Eyes: EOMI, no lid lag, anicteric sclera Mouth: no lip lesion, mucus membranes moist Cardiovascular: Tachycardic, no murmur, positive posterior tibial pulse bilateral, Lungs: CTA bilateral, no rhonchi, no rales , no accessory muscle use Abdominal: soft, nontender to palpation, no guarding, no appreciable organomegaly Ext: no gross muscle atrophy, no edema, fine tremors bilateral hands when outstretched Neuro: no focal neuro deficits Psych: Alert, oriented, appropriate affect #Alcohol intoxication with impending withdrawal #Normocytic anemia #History of seizure disorder #COPD not an acute exacerbation #Smoker Continues to CIWA protocol with Ativan as needed. Patient is interested in [place]. Telemetry monitoring. Continue normal saline at 130 mL per hour. Patient encouraged to quit drinking alcohol. No signs of active bleeding. Restart folic acid. Continue to monitor hemoglobin. Restart gabapentin for peripheral neuropathy. Patient is not on any antiepileptic medication. His COPD stable. Does not require any supplemental oxygen. Albuterol neb as needed for shortness of breath and wheezing. Patient encourage to quit smoking. He has been offered a nicotine patch. Patient reports taking Xarelto for stroke prevention. He denies any history of atrial fibrillation. No history of blood clots. No indication to take Xarelto. DVT prophylaxis: Heparin Discussed with: Patient, nursing Anticipated discharge: 1-[address]: Home A total of 20 minutes was spent on the care of this complex patient more than 50% of the time was spent in counseling and care coordination. Objective - Vital Signs Vital signs: Vital Signs Temp 98.7 F 07/02/22 08:00 Pulse 89 07/02/22 08:00 Resp 16 07/02/22 08:00 BP 138/91 07/02/22 08:00 Pulse Ox 95 07/02/22 08:00 FiO2 Intake & Output 07/01/22 07/02/22 07/02/22 18:59 06:59 18:59 Output Total 500 400 Balance -500 -400 Weight 63.503 kg 63.503 kg Output: Urine 500 400 Other: Voiding Method Toilet - Labs CBC & Chem 7: 07/02/22 05:40 07/02/22 05:40 Labs: Abnormal Lab Results - Last 24 Hours (Table) 07/01/22 07/01/22 07/02/22 Range/Units 16:22 16:22 05:40 WBC 12.6 H (3.8-10.6) k/uL RBC 4.09 L 3.50 L (4.30-5.90) m/uL Hgb 11.5 L (13.0-17.5) gm/dL Hct 38.9 L 34.3 L (39.0-53.0) % Plt Count 533 H (150-450) k/uL Neutrophils # 9.3 H (1.3-7.7) k/uL Creatinine 0.44 L (0.66-1.25) mg/dL 07/02/22 Range/Units 05:40 WBC (3.8-10.6) k/uL RBC (4.30-5.90) m/uL Hgb (13.0-17.5) gm/dL Hct (39.0-53.0) % Plt Count (150-450) k/uL Neutrophils # (1.3-7.7) k/uL Creatinine 0.45 L (0.66-1.25) mg/dL
[2022-07-02] MEDS ORDERED: LORazepam 1 MG/0.5 ML VIAL IV PRN ×2 (14:02)
[2022-07-02] MEDS ORDERED: LORazepam 1 MG TAB PO PRN (14:02)
[2022-07-02] MEDS: GABAPENTIN 300 MG CAP PO SCH ×2 (14:37→20:32)
[2022-07-02] MEDS: LORazepam 1 MG/0.5 ML VIAL IV PRN ×4 (14:38→23:19)
[2022-07-03] MEDS ORDERED: FOLIC ACID 1 MG TAB PO SCH (09:00)
[2022-07-03] MEDS: LORazepam 1 MG/0.5 ML VIAL IV PRN (09:10)
[2022-07-03] MEDS ORDERED: ACETAMINOPHEN TAB 325 MG TAB PO PRN (09:26)
[2022-07-03] MEDS: GABAPENTIN 300 MG CAP PO SCH (09:52)
[2022-07-03] MEDS: THIAMINE 100 MG TAB PO SCH (09:52)
[2022-07-03] MEDS: NICOTINE 21MG/24HR PATCH TRANSDERM SCH (09:52)
[2022-07-03] MEDS: PANTOPRAZOLE 40 MG TABLET PO SCH (09:52)
[2022-07-03 10:35] VITALS: BP 131/85; PULSE 92; RESP 18; TEMP 97.6
--- NOTE | 2022-07-03 15:02 | P.DS ---
Providers Date of admission: 07/01/22 21:24 Expected date of discharge: 07/03/22 Attending physician: Norbert Arredondo MD Primary care physician: Stated None Hospital Course: Discharge Diagnosis: Alcohol intoxication in active alcoholic, patient is clinically sober for discharge at this time. Patient was strongly advised on avoiding all further alcohol use. Patient was instructed that continued abuse of alcohol can only lead to detrimental health consequences up to and including . Patient encouraged to go to inpatient drug and alcohol rehabilitation center, but declining at this time. Pt provided with outpatient resources. Chronic pain . Continue to follow up outpatient with pain management. History of DVTs. Continue oral anticoagulant with Xarelto. Nicotine dependence. Educated and encouraged patient on the benefits of smoking cessation and the risks of continued use. Severe protein malnourishment. Recommend alcohol cessation and use of Protein supplements 3 times daily between meals. Hospital Course: Patient is a very pleasant 56-year-old male with a past medical history of chronic pain, alcohol abuse, anxiety, 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 He is very well known to our services secondary to multiple previous admissions resulting from alcohol abuse/intoxication. He presented to the emergency department on 07/11/22 with alcohol intoxication. Patient underwent full evaluation in the emergency department and was found to have blood alcohol level of 173. Patient was admitted under our services at this time. Patient received IV fluid hydration and was placed on CIWA protocol with symptom triggered medication management with benzodiazepines. Patient is clinically sober. Patient requesting discharge and requesting prescription for Klonopin and [place] upon discharge. Patient was informed that he will not be given a prescription for controlled substances at discharge. Patient encouraged to consider placement in inpatient drug rehabilitation facility but declining at this time.patient has been given information on outpatient resources and assistance available to him. Patient medically stable for discharge at this time, again encouraged to return to inpatient drug and alcohol rehabilitation program. Physical exam: Vital signs reviewed and stable. General: Nontoxic, no distress and appears older than stated age. Thin, emaciated malnourished appearance. Derm: Skin warm and dry, normal coloration for ethnicity. Head: Atraumatic, normocephalic and symmetric. Eyes: EOMs intact, no lid lag, and anicteric sclera Mouth: no lip lesions, mucus membranes moist Cardiovascular: regular rate and rhythm with normal S1S2, no murmur, positive posterior tibial pulses bilaterally, and cap refill < 2 seconds. Lungs: Respirations even, regular, and unlabored on room air. Lungs CTA bilaterally, no rhonchi, no rales, no wheezing, and no accessory muscle usage. Abdominal: soft, nontender to palpation, no guarding, no appreciable organomegaly Ext: ROM intact. No gross muscle atrophy, no edema, no contractures Neuro: Speech clear, face symmetrical and CN II-XII grossly intact with no noted focal neuro deficits Psych: Alert and oriented to person, place, time, and situation. Appropriate and pleasant affect. A total of 35 minutes of time were spent preparing this complex discharge summary. Pt was discharged on 07/03/22 at 10:49 AM. Attending Note: Josue Cavazos NP rendered care for this patient independently, reviewed the findings and plan as documented in the note above. I did not physically speak with or examine the patient on this date. Patient Condition at Discharge: Stable Plan - Discharge Summary Discharge Rx Participant: Yes New Discharge Prescriptions: Continue Rivaroxaban [Xarelto] 2.5 mg PO DIRECTED Trihexyphenidyl [Artane] 2 mg PO TID PRN PRN Reason: Spasms Folic Acid 1 mg PO DAILY Gabapentin 600 mg PO TID Pantoprazole [Protonix] 40 mg PO AC-BRKFST #30 tab Thiamine [Vitamin B-1] 100 mg PO DAILY tab Discontinued clonazePAM [KlonoPIN] 1 mg PO TID Discharge Medication List Gabapentin 600 mg PO TID 06/01/22 [History] Rivaroxaban [Xarelto] 2.5 mg PO DIRECTED 06/01/22 [History] Trihexyphenidyl [Artane] 2 mg PO TID PRN 06/01/22 [History] Pantoprazole [Protonix] 40 mg PO AC-BRKFST #30 tab 06/18/22 [Rx] Thiamine [Vitamin B-1] 100 mg PO DAILY tab 06/18/22 [Rx] Folic Acid 1 mg PO DAILY 06/29/22 [History] Patient Instructions/Handouts: Alcohol Intoxication (ED) Activity/Diet/Wound Care/Special Instructions: Activity: As tolerated. Take breaks as needed. Diet: Heart healthy and carb consistent diet. Avoid salts, or foods with hidden salts such as canned or boxed foods and frozen dinners. Extra salt makes your heart work harder and traps the fluid in your body for longer. Special Instructions: Take all of your medications as directed and remember to keep all of your doctor's appointments and follow-up as needed. Strongly advise cessation of all alcohol use as we discussed. Continued drinking will only lead to further detrimental health consequences up to and including . Strongly recommend reconsideration of inpatient rehabilitation Center. Thank you for allowing us to participate in your care, it was truly a pleasure h aving you for our patient!!! Discharge/Stand Alone Forms: AA Meetings [facility], Community Resources, In Substance Abuse Facilities, Outpatient Counseling, Who Do I Call? Discharge Disposition: HOME SELF-CARE
== END 2022-07-03 11:44 | disposition home or self-care (01) ==
LOC: EC 13:41 → 4SSUR 21:24
PROVIDERS: ADMIT Internal Medicine; ATTEND Internal Medicine
DX: F10.220 Alcohol dependence with intoxication, uncomplicated (principal); G40.909 Epilepsy, unspecified, not intractable, without status epilepticus; F90.9 Attention-deficit hyperactivity disorder, unspecified type; G62.9 Polyneuropathy, unspecified; K58.9 Irritable bowel syndrome, unspecified; F41.9 Anxiety disorder, unspecified; F31.9 Bipolar disorder, unspecified; F20.9 Schizophrenia, unspecified; J44.9 Chronic obstructive pulmonary disease, unspecified; F11.10 Opioid abuse, uncomplicated; F17.200 Nicotine dependence, unspecified, uncomplicated; D64.9 Anemia, unspecified; D72.829 Elevated white blood cell count, unspecified; G89.29 Other chronic pain; E43 Unspecified severe protein-calorie malnutrition; Z79.899 Other long term (current) drug therapy; Z79.01 Long term (current) use of anticoagulants; Z82.49 Family history of ischemic heart disease and other diseases of the circulatory system; Z82.41 Family history of sudden cardiac death; Z86.718 Personal history of other venous thrombosis and embolism; Z80.3 Family history of malignant neoplasm of breast; Z68.20 Body mass index [BMI] 20.0-20.9, adult; Y90.6 Blood alcohol level of 120-199 mg/100 ml
CPT/HCPCS: 96376 ×2; 96360; 96361 ×2; 96372; 96374; 99285; 36415; 80053; 80048; 83690; 83735; 85025 ×2; G0378 ×3; G0480; S4990 ×2; J2060 ×3; J3411; 80320

== ENCOUNTER 2022-07-04 09:42 | Emergency (ER) | payer MEDICARE, OTHER ==
[2022-07-04 09:46] VITALS: TEMP 97.5
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
[2022-07-04 10:29] LABS: Basophils # (A) 0.1 k/uL (0-0.2); Basophils % (A) 1 %; Eosinophils # (A) 0.4 k/uL (0-0.7); Eosinophils % (A) 6 %; HCT 36.5 % (39.0-53.0); HGB 12.1 gm/dL (13.0-17.5); Lymphocytes # (A) 2.1 k/uL (1.0-4.8); Lymphocytes % (A) 31 %; MCH 32.8 pg (25.0-35.0); MCHC 33.3 g/dL (31.0-37.0); MCV 98.4 fL (80.0-100.0); Mean Platelet Volume 7.7; Monocytes # (A) 0.4 k/uL (0-1.0); Monocytes % (A) 6 %; Neutrophils # (A) 3.5 k/uL (1.3-7.7); Neutrophils % (A) 53 %; Platelet Count 361 k/uL (150-450); WBC 6.7 k/uL (3.8-10.6)
[2022-07-04 11:01] LABS: ALT 20 U/L (4-49); AST 21 U/L (17-59); African American GFR (CKD) >90 (>60 ml/min/1.73 sqM); Alkaline Phosphatase 79 U/L (38-126); Anion Gap 9 mmol/L; Blood Urea Nitrogen 10 mg/dL (9-20); Calcium 8.8 mg/dL (8.4-10.2); Carbon Dioxide 22 mmol/L (22-30); Chloride 104 mmol/L (98-107); Creatine Kinase 57 U/L (55-170); Glucose 86 mg/dL (74-99); Lipase 168 U/L (23-300); Magnesium 1.8 mg/dL (1.6-2.3); Non-African American GFR(CKD) >90 (>60 ml/min/1.73 sqM); Potassium 4.3 mmol/L (3.5-5.1); Sodium 135 mmol/L (137-145); Total Bilirubin 0.4 mg/dL (0.2-1.3)
[2022-07-04 11:18] LABS: Alcohol 167 mg/dL
[2022-07-04 14:34] VITALS: BP 110/77; PULSE 78; RESP 18
== END 2022-07-04 14:55 | disposition home or self-care (01) ==
LOC: EC 09:42
DX: F10.129 Alcohol abuse with intoxication, unspecified (principal); J44.9 Chronic obstructive pulmonary disease, unspecified; F41.9 Anxiety disorder, unspecified; F31.9 Bipolar disorder, unspecified; F17.200 Nicotine dependence, unspecified, uncomplicated; Z91.013 Allergy to seafood; Z88.0 Allergy status to penicillin; Z88.8 Allergy status to other drugs, medicaments and biological substances; Z79.899 Other long term (current) drug therapy
CPT/HCPCS: 36415; 80053; 82140; 82550; 83690; 83735; 85025; 99284; G0480; 80320

== ENCOUNTER 2022-07-04 23:33 | Emergency (ER) | payer MEDICARE, OTHER ==
[2022-07-04] MEDS ORDERED: diphenhydrAMINE 50 MG/ML 1 ML VIAL IM STA (23:55)
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
== END 2022-07-05 04:54 | disposition home or self-care (01) ==
LOC: EC 23:33
DX: F10.90 Alcohol use, unspecified, uncomplicated (principal); F19.10 Other psychoactive substance abuse, uncomplicated; J44.9 Chronic obstructive pulmonary disease, unspecified; F41.9 Anxiety disorder, unspecified; F31.9 Bipolar disorder, unspecified; F17.200 Nicotine dependence, unspecified, uncomplicated; Z91.013 Allergy to seafood; Z88.0 Allergy status to penicillin; Z88.1 Allergy status to other antibiotic agents; Z88.6 Allergy status to analgesic agent; Z79.899 Other long term (current) drug therapy
CPT/HCPCS: 99284

== ENCOUNTER 2022-07-05 17:09 | Observation (INO) | payer MEDICARE, OTHER ==
[2022-07-05 19:14] LABS: Basophils # (A) 0.1 k/uL (0-0.2); Basophils % (A) 1 %; Eosinophils # (A) 0.3 k/uL (0-0.7); Eosinophils % (A) 4 %; HCT 40.7 % (39.0-53.0); HGB 13.3 gm/dL (13.0-17.5); Lymphocytes # (A) 2.5 k/uL (1.0-4.8); Lymphocytes % (A) 38 %; MCH 31.9 pg (25.0-35.0); MCHC 32.7 g/dL (31.0-37.0); MCV 97.7 fL (80.0-100.0); Mean Platelet Volume 7.5; Monocytes # (A) 0.3 k/uL (0-1.0); Monocytes % (A) 4 %; Neutrophils # (A) 3.3 k/uL (1.3-7.7); Neutrophils % (A) 50 %; Platelet Count 434 k/uL (150-450); RBC 4.16 m/uL (4.30-5.90); RDW 13.3 % (11.5-15.5); WBC 6.5 k/uL (3.8-10.6)
[2022-07-05 19:23] LABS: ALT 22 U/L (4-49); AST 24 U/L (17-59); African American GFR (CKD) >90 (>60 ml/min/1.73 sqM); Albumin 4.5 g/dL (3.5-5.0); Alkaline Phosphatase 93 U/L (38-126); Anion Gap 14 mmol/L; Blood Urea Nitrogen 10 mg/dL (9-20); Calcium 9.2 mg/dL (8.4-10.2); Carbon Dioxide 21 mmol/L (22-30); Chloride 109 mmol/L (98-107); Glucose 74 mg/dL (74-99); Non-African American GFR(CKD) >90 (>60 ml/min/1.73 sqM); Sodium 144 mmol/L (137-145); Total Bilirubin 0.4 mg/dL (0.2-1.3); Total Protein 7.8 g/dL (6.3-8.2)
[2022-07-05 19:40] LABS: Alcohol 296 mg/dL
[2022-07-05] MEDS ORDERED: NALOXONE 0.4 MG/ML 1 ML VIAL IV PRN (20:28)
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
[2022-07-05] MEDS ORDERED: LORazepam 1 MG TAB PO PRN ×3 (20:29)
[2022-07-05] MEDS ORDERED: THIAMINE 100 MG/ML 2 ML VIAL IM STA (20:29)
[2022-07-05] MEDS ORDERED: LORazepam 0.5 MG TAB PO PRN (20:29)
[2022-07-05] MEDS: SODIUM CHLORIDE 0.9% 1,000 ML IV SCH (21:23)
[2022-07-06] MEDS ORDERED: chlordiazePOXIDE 25 MG CAP PO STA (00:41)
[2022-07-06] MEDS ORDERED: LORazepam 1 MG/0.5 ML VIAL IV STA (02:16)
[2022-07-06] MEDS ORDERED: LORazepam 1 MG/0.5 ML VIAL IV PRN ×3 (02:17)
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
[2022-07-06] MEDS: SODIUM CHLORIDE 0.9% 1,000 ML IV SCH (04:08)
[2022-07-06] MEDS ORDERED: PANTOPRAZOLE 40 MG TABLET PO SCH (07:30)
[2022-07-06 08:18] VITALS: BP 126/78; PULSE 96; RESP 16; TEMP 98.8
[2022-07-06] MEDS ORDERED: THIAMINE 100 MG TAB PO SCH ×2 (09:00)
[2022-07-06] MEDS ORDERED: FOLIC ACID 1 MG TAB PO SCH (09:00)
[2022-07-06] MEDS ORDERED: GABAPENTIN 300 MG CAP PO SCH (09:00)
[2022-07-06] MEDS ORDERED: RIVAROXABAN 2.5 MG TABLET PO SCH (10:30)
--- NOTE | 2022-07-06 10:53 | P.DS ---
Providers Date of admission: 07/05/22 20:29 Expected date of discharge: 07/06/22 Attending physician: Norbert Arredondo MD Primary care physician: Stated None Hospital Course: Discharge Diagnosis: Alcohol intoxication in active alcoholic, patient is clinically sober for discharge at this time. Patient was strongly advised on avoiding all further alcohol use. Patient was instructed that continued abuse of alcohol can only lead to detrimental health consequences up to and including . Patient encouraged to go to inpatient drug and alcohol rehabilitation center, but declining at this time. Pt provided with outpatient resources. [facility] and [facility] were contacted by social work and stated they will follow patient on outpatient basis upon discharge. Chronic pain . Continue to follow up outpatient with pain management. Patient requested Hollister and Klonopin prescriptions upon discharge and was not provided with this medication. History of DVTs. Continue oral anticoagulant with Xarelto. Nicotine dependence. Educated and encouraged patient on the benefits of smoking cessation and the risks of continued use. Severe protein malnourishment. Recommend alcohol cessation and use of Protein supplements 3 times daily between meals. Hospital Course: Patient is a very pleasant 57-year-old male with a past medical history of chronic pain, alcohol abuse, anxiety, 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 He is very well known to our services secondary to multiple previous admissions resulting from alcohol abuse/intoxication. He was just discharged from our services on 07/03/17 and has since had 3 ER visits secondary to alcohol intoxication. Patient adamant against attending inpatient rehab. In the emergency department CBC and CMP were completed showing no significant abnormalities. Serum alcohol level was also drawn and elevated at 296. Patient admitted under our services to observation and monitored overnight. Social work was consulted and place called to Adult Protective Services. [facility] presented to the hospital to evaluate patient and reports they will be following with him on an outpatient basis. [facility] was also contacted by social work and providing patient with transport home and also states they will be following up outpatient with Mr. Long. Medically patient is stable for discharge at this time. He was again encouraged to consider placement in inpatient drug and alcohol rehabilitation facility but continues to deny. Patient medically stable for discharge and encouraged to sustain from any and all use of alcohol. Physical exam: Vital signs reviewed and stable. General: Nontoxic, no distress and appears older than stated age. Thin, emaciated malnourished appearance. Derm: Skin warm and dry, normal coloration for ethnicity. Head: Atraumatic, normocephalic and symmetric. Eyes: EOMs intact, no lid lag, and anicteric sclera Mouth: no lip lesions, mucus membranes moist Cardiovascular: regular rate and rhythm with normal S1S2, no murmur, positive posterior tibial pulses bilaterally, and cap refill < 2 seconds. Lungs: Respirations even, regular, and unlabored on room air. Lungs CTA bilaterally, no rhonchi, no rales, no wheezing, and no accessory muscle usage. Abdominal: soft, nontender to palpation, no guarding, no appreciable organomegaly Ext: ROM intact. No gross muscle atrophy, no edema, no contractures Neuro: Speech clear, face symmetrical and CN II-XII grossly intact with no noted focal neuro deficits Psych: Alert and oriented to person, place, time, and situation. Appropriate and pleasant affect. A total of 35 minutes of time were spent preparing this complex discharge summary. Pt was discharged on 07/06/22 at 10:52 AM. Assessment: Attending note Josue franco NP rendered care for this patient independently, reviewed the findings and plan as documented in the note above. I did not physically speak with or examined the patient on this date Patient Condition at Discharge: Stable Plan - Discharge Summary New Discharge Prescriptions: Continue Rivaroxaban [Xarelto] 2.5 mg PO DIRECTED Trihexyphenidyl [Artane] 2 mg PO TID PRN PRN Reason: Spasms Folic Acid 1 mg PO DAILY Gabapentin 600 mg PO TID Pantoprazole [Protonix] 40 mg PO AC-BRKFST #30 tab Thiamine [Vitamin B-1] 100 mg PO DAILY tab Discharge Medication List Gabapentin 600 mg PO TID 06/01/22 [History] Rivaroxaban [Xarelto] 2.5 mg PO DIRECTED 06/01/22 [History] Trihexyphenidyl [Artane] 2 mg PO TID PRN 06/01/22 [History] Pantoprazole [Protonix] 40 mg PO AC-BRKFST #30 tab 06/18/22 [Rx] Thiamine [Vitamin B-1] 100 mg PO DAILY tab 06/18/22 [Rx] Folic Acid 1 mg PO DAILY 06/29/22 [History] Follow up Appointment(s)/Referral(s): None,Stated [Primary Care Provider] - 1-2 days Patient Instructions/Handouts: Alcohol Intoxication (DC) Activity/Diet/Wound Care/Special Instructions: Activity: As tolerated. Take breaks as needed. Diet: Heart healthy and carb consistent diet. Avoid salts, or foods with hidden salts such as canned or boxed foods and frozen dinners. Recommend protein supplements such as ensure 3 times daily between meals. Special Instructions: Take all of your medications as directed and remember to keep all of your doctor's appointments and follow-up as needed. It is strongly advised that you avoid any and all alcohol use as we have discussed with you on multiple occasions, if you continue to drink in this manner it is going to lead to further deterioration of your health and consequences up to and including . It is strongly advised for you to attend an inpatient drug and alcohol rehabilitation Center. Thank you for allowing us to participate in your care, it was truly a pleasure having you for our patient!!!
[2022-07-06] MEDS ORDERED: LORazepam 2 MG/ML INJ IV PRN ×3 (11:30→11:32)
== END 2022-07-06 11:51 ==
LOC: EC 17:09 → 6NMEDSUR 20:29
PROVIDERS: ADMIT Internal Medicine; ATTEND Internal Medicine
DX: F10.220 Alcohol dependence with intoxication, uncomplicated (principal); J44.9 Chronic obstructive pulmonary disease, unspecified; F31.9 Bipolar disorder, unspecified; F90.9 Attention-deficit hyperactivity disorder, unspecified type; G40.909 Epilepsy, unspecified, not intractable, without status epilepticus; F41.9 Anxiety disorder, unspecified; F32.A Depression, unspecified; G62.9 Polyneuropathy, unspecified; G89.29 Other chronic pain; F17.200 Nicotine dependence, unspecified, uncomplicated; F20.0 Paranoid schizophrenia; K58.9 Irritable bowel syndrome, unspecified; E43 Unspecified severe protein-calorie malnutrition; Z79.899 Other long term (current) drug therapy; Z79.01 Long term (current) use of anticoagulants; Z82.49 Family history of ischemic heart disease and other diseases of the circulatory system; Z82.41 Family history of sudden cardiac death; Z68.22 Body mass index [BMI] 22.0-22.9, adult; Z80.3 Family history of malignant neoplasm of breast; Z81.1 Family history of alcohol abuse and dependence; Z86.718 Personal history of other venous thrombosis and embolism; Y90.8 Blood alcohol level of 240 mg/100 ml or more
CPT/HCPCS: 96372; 96374; 99285; 36415; 80053; 85025; G0378 ×2; G0480; J2060; J3411; 80320

== ENCOUNTER 2022-07-06 22:06 | Emergency (ER) | payer MEDICARE, OTHER ==
[2022-07-06 22:43] VITALS: TEMP 97.4
[2022-07-06] MEDS ORDERED: SODIUM CHLORIDE 0.9% 1,000 ML with THIAMINE 100 MG, FOLIC ACID 1 MG IV ONE ×3 (22:49)
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
[2022-07-07 02:40] VITALS: RESP 18
[2022-07-07 03:56] VITALS: BP 112/68; PULSE 79
== END 2022-07-07 03:50 | disposition left against medical advice (07) ==
LOC: EC 22:06
DX: Z86.59 Personal history of other mental and behavioral disorders (principal); Z72.89 Other problems related to lifestyle; J44.9 Chronic obstructive pulmonary disease, unspecified; F41.9 Anxiety disorder, unspecified; F31.9 Bipolar disorder, unspecified; F17.200 Nicotine dependence, unspecified, uncomplicated; Z91.013 Allergy to seafood; Z88.0 Allergy status to penicillin; Z88.1 Allergy status to other antibiotic agents; Z88.6 Allergy status to analgesic agent; Z53.29 Procedure and treatment not carried out because of patient's decision for other reasons
CPT/HCPCS: 99283

== ENCOUNTER 2022-07-07 07:19 | Emergency (ER) | payer MEDICARE, OTHER ==
[2022-07-07 07:28] VITALS: BP 116/82; PULSE 92; RESP 18; TEMP 97.4
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
== END 2022-07-07 08:02 | disposition left against medical advice (07) ==
LOC: EC 07:19
DX: Z76.5 Malingerer [conscious simulation] (principal); F10.129 Alcohol abuse with intoxication, unspecified; J44.9 Chronic obstructive pulmonary disease, unspecified; F41.9 Anxiety disorder, unspecified; F31.9 Bipolar disorder, unspecified; F17.200 Nicotine dependence, unspecified, uncomplicated; Z79.899 Other long term (current) drug therapy; Z91.013 Allergy to seafood; Z88.0 Allergy status to penicillin; Z88.6 Allergy status to analgesic agent
CPT/HCPCS: 99284

== ENCOUNTER 2022-07-09 17:29 | Observation (INO) | payer MEDICARE, OTHER ==
[2022-07-09 17:57] LABS: Basophils # (A) 0.1 k/uL (0-0.2); Basophils % (A) 0 %; Eosinophils # (A) 0.1 k/uL (0-0.7); Eosinophils % (A) 0 %; HCT 39.9 % (39.0-53.0); HGB 13.1 gm/dL (13.0-17.5); Hypochromasia Slight; Lymphocytes # (A) 1.9 k/uL (1.0-4.8); Lymphocytes % (A) 10 %; MCH 32.7 pg (25.0-35.0); MCHC 32.8 g/dL (31.0-37.0); MCV 99.8 fL (80.0-100.0); Mean Platelet Volume 7.5; Monocytes # (A) 0.9 k/uL (0-1.0); Monocytes % (A) 5 %; Neutrophils # (A) 16.4 k/uL (1.3-7.7); Neutrophils % (A) 84 %; Platelet Count 368 k/uL (150-450); RDW 13.4 % (11.5-15.5); WBC 19.6 k/uL (3.8-10.6)
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
[2022-07-09 18:22] LABS: ALT 25 U/L (4-49); AST 34 U/L (17-59); African American GFR (CKD) >90 (>60 ml/min/1.73 sqM); Albumin 4.6 g/dL (3.5-5.0); Alkaline Phosphatase 120 U/L (38-126); Anion Gap 25 mmol/L; Blood Urea Nitrogen 28 mg/dL (9-20); Calcium 8.7 mg/dL (8.4-10.2); Carbon Dioxide 13 mmol/L (22-30); Chloride 104 mmol/L (98-107); Glucose 50 mg/dL (74-99); Magnesium 2.2 mg/dL (1.6-2.3); Non-African American GFR(CKD) >90 (>60 ml/min/1.73 sqM); Potassium 4.5 mmol/L (3.5-5.1); Sodium 142 mmol/L (137-145); Total Bilirubin 0.3 mg/dL (0.2-1.3); Total Protein 7.6 g/dL (6.3-8.2)
--- NOTE | 2022-07-09 18:37 | XR ---
EXAMINATION TYPE: XR chest 2V DATE OF EXAM: 07/09/2022 COMPARISON: 06/16/2022 HISTORY: Altered mental status TECHNIQUE: 3 views FINDINGS: There is some linear density in the right middle lobe. The other lung reyna are clear. Hea rt size is normal. No heart failure. There are no hilar masses. IMPRESSION: There is some right middle lobe pneumonia and atelectasis. This is likely not changed com pared to old exam. This appears unchanged compared to older chest x-ray of 03/10/2022. No heart failur e.
[2022-07-09 18:46] LABS: Alcohol 338 mg/dL
[2022-07-09] MEDS ORDERED: LEVOFLOXACIN 750MG-D5W PMX 750 MG in DEXTROSE/WATER 1 150ML.BAG IVPB STA (19:13)
[2022-07-09] MEDS ORDERED: CLINDAMYCIN 600 MG in DEXTROSE 5% IN WATER 50 ML IVPB STA ×2 (19:13)
[2022-07-09] MEDS ORDERED: LORazepam 1 MG TAB PO PRN ×3 (19:18)
[2022-07-09] MEDS ORDERED: THIAMINE 100 MG/ML 2 ML VIAL IM STA (19:18)
[2022-07-09] MEDS ORDERED: LORazepam 0.5 MG TAB PO PRN (19:18)
[2022-07-09] MEDS ORDERED: NALOXONE 0.4 MG/ML 1 ML VIAL IV PRN (19:26)
[2022-07-09] MEDS ORDERED: DEXTROSE 50% SYRINGE 50 ML IVP STA (19:30)
[2022-07-09] MEDS: SODIUM CHLORIDE 0.9% 1,000 ML IV SCH ×2 (19:31)
[2022-07-09 20:10] LABS: Glucose,Whole Blood 196 mg/dL (70-110)
[2022-07-09 21:04] LABS: Glucose,Whole Blood 117 mg/dL (70-110)
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
[2022-07-09] MEDS: RIVAROXABAN 2.5 MG TABLET PO SCH (23:34)
[2022-07-10] MEDS ORDERED: HEPARIN SODIUM,PORCINE/PF 5,000 UNIT/0.5 ML SYRINGE SQ SCH
[2022-07-10] MEDS ORDERED: LORazepam 2 MG/ML INJ IV PRN ×3 (02:57)
[2022-07-10] MEDS ORDERED: ACETAMINOPHEN TAB 325 MG TAB PO STA (04:36)
[2022-07-10] MEDS ORDERED: PANTOPRAZOLE 40 MG TABLET PO SCH (07:30)
[2022-07-10 08:41] VITALS: BP 123/71; PULSE 108; RESP 16; TEMP 99.1
[2022-07-10] MEDS ORDERED: FOLIC ACID 1 MG TAB PO SCH (09:00)
[2022-07-10] MEDS ORDERED: LIDOCAINE 5% PATCH TOPICAL SCH (09:00)
[2022-07-10] MEDS ORDERED: GABAPENTIN 300 MG CAP PO SCH (09:00)
[2022-07-10] MEDS ORDERED: THIAMINE 100 MG TAB PO SCH (09:00)
[2022-07-10] MEDS: RIVAROXABAN 2.5 MG TABLET PO SCH (10:00)
[2022-07-10] MEDS: SODIUM CHLORIDE 0.9% 1,000 ML IV SCH ×2 (10:01)
[2022-07-10 10:42] LABS: HCT 29.8 % (39.6-50.0); HGB 10.3 g/dL (13.0-17.0); MCH 31.8 pg (27.0-32.0); MCHC 34.6 g/dL (32.0-37.0); Mean Platelet Volume 9.6 fL (9.5-12.2); NRBC Per 100 WBC 0 /100 WBCS (0.0-0.0); Platelet Count 255 X 10*3/uL (140-440); RBC 3.24 X 10*6/uL (4.40-5.60); RDW 13.8 % (11.5-14.5); WBC 13.23 X 10*3/uL (4.50-10.00)
[2022-07-10 10:55] LABS: African American GFR (CKD) 123.1 (60.0-200.0); Albumin 4.1 g/dL (3.8-4.9); Albumin/Globulin Ratio 1.64 (1.60-3.17); Anion Gap 11.7 mmol/L (10.00-18.00); BUN/Creat Ratio 25.43 Ratio (12.00-20.00); Blood Urea Nitrogen 17.8 mg/dL (9.0-27.0); Calcium 8.9 mg/dL (8.7-10.3); Carbon Dioxide 25.3 mmol/L (20.0-27.5); Globulin 2.5 g/dL (1.6-3.3); Magnesium 2.1 mg/dL (1.5-2.4); Non-African American GFR(CKD) 106.2 (60.0-200.0); Potassium 4.1 mmol/L (3.5-5.5); Total Bilirubin 0.8 mg/dL (0.30-1.20); Total Protein 6.6 g/dL (6.2-8.2)
--- NOTE | 2022-07-10 14:27 | P.DS ---
Providers Date of admission: 07/09/22 19:26 Expected date of discharge: 07/10/22 Attending physician: Michele Ross MD Primary care physician: Stated None Hospital Course: Discharge Diagnosis: Alcohol intoxication in active alcoholic, patient is clinically sober for discharge at this time. Patient was strongly advised on avoiding all further alcohol use. Patient was encouraged to attend inpatient drug and alcohol rehabilitation facility. He reports that he is working with his stove mechanic and they have made arrangements for him to go to [facility] on Sunday07/12/22. Patient reports he has to go home and take care of a few things before he can go there. Patient was again instructed that continued abuse of alcohol can only lead to detrimental health consequences up to and including . Patient was provided with outpatient resources. [facility] and [facility] were contacted by social work and stated they will follow patient on outpatient basis upon discharge. Right middle lobe pneumonia, likely Aspiration pneumonia in setting of long- standing alcohol abuse. Patient received 1 dose of Levaquin in the hospital and being discharged home on an additional 4 days to total 5 day treatment course for aspiration pneumonia. Leukocytosis likely reactive and resulting from underlying right lower lobe pneumonia, significantly improved from 19.6 down to 13.23 upon discharge. Prerenal azotemia, resolved with IV fluid hydration History of DVTs. Continue oral anticoagulant with Xarelto. Nicotine dependence. Educated and encouraged patient on the benefits of smoking cessation and the risks of continued use. Severe protein malnourishment. Recommend alcohol cessation and use of Protein supplements 3 times daily between meals. Hospital Course: Patient is a very pleasant 57-year-old male with a past medical history of chronic pain, alcohol abuse, anxiety, 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 He is very well known to our services secondary to multiple previous admissions resulting from alcohol abuse/intoxication. He was just discharged from our services on 07/06/17 and has since had 3 ER visits secondary to alcohol intoxication. Patient adamant against attending inpatient rehab but he does report his counter caser was [facility] has arranged for him to go to [facility] on Sunday07/12/22. . In the emergency department patient underwent full evaluation. CBC and CMP were completed showing leukocytosis with WBC count of 19.6 and prerenal azotemia with BUN of 28.. Serum alcohol level was also drawn and elevated a 338. Chest x-ray was completed revealing right middle lobe pneumonia and atelectasis. Patient was started on Levaquin secondary to ALLERGY to penicillin and was admitted under our services to observation and monitored overnight. Again had long discussion with patient this morning regarding need for cessation of alcohol use and risks of continued alcohol abuse. Patient verbalizes that he needs to stop drinking but adamant against going to rehab at this time states that he needs to go home and get some things done as his stove mechanic from [facility] is making him go to [facility] on Sunday07/12/22. Medically patient is stable for discharge at this time. Repeat morning labs reveal improvement in WBC count down to 13.23 and resolution of prerenal azotemia after IV fluid hydration. Pt received 1 dose of Levaquin in the hospital and being discharged home on an additional 4 days to total 5 day treatment course for aspiration pneumonia.. Patient medically stable for discharge and encouraged to sustain from any and all use of alcohol. Physical exam: Vital signs reviewed and stable. General: Nontoxic, no distress and appears older than stated age. Thin, emaciated malnourished appearance. Derm: Skin warm and dry, normal coloration for ethnicity. Head: Atraumatic, normocephalic and symmetric. Eyes: EOMs intact, no lid lag, and anicteric sclera Mouth: no lip lesions, mucus membranes moist Cardiovascular: regular rate and rhythm with normal S1S2, no murmur, positive po sterior tibial pulses bilaterally, and cap refill < 2 seconds. Lungs: Respirations even, regular, and unlabored on room air. Lungs CTA bilaterally, no rhonchi, no rales, no wheezing, and no accessory muscle usage. Abdominal: soft, nontender to palpation, no guarding, no appreciable organomegaly Ext: ROM intact. No gross muscle atrophy, no edema, no contractures Neuro: Speech clear, face symmetrical and CN II-XII grossly intact with no noted focal neuro deficits Psych: Alert and oriented to person, place, time, and situation. Appropriate and pleasant affect. A total of 33 minutes of time were spent preparing this complex discharge summary. Pt was discharged on 07/10/22 at 2:12 PM. I reviewed the documentation as provided by the BOBBY above, who is the original author of this note. I agree with the documented assessment and plan, with the following changes: none Patient Condition at Discharge: Stable Plan - Discharge Summary New Discharge Prescriptions: New Levofloxacin [Levaquin] 750 mg PO DAILY 4 Days #4 tab Continue Rivaroxaban [Xarelto] 2.5 mg PO DIRECTED Trihexyphenidyl [Artane] 2 mg PO TID PRN PRN Reason: Spasms Folic Acid 1 mg PO DAILY Gabapentin 600 mg PO TID Pantoprazole [Protonix] 40 mg PO AC-BRKFST #30 tab Thiamine [Vitamin B-1] 100 mg PO DAILY tab Discharge Medication List Gabapentin 600 mg PO TID 06/01/22 [History] Rivaroxaban [Xarelto] 2.5 mg PO DIRECTED 06/01/22 [History] Trihexyphenidyl [Artane] 2 mg PO TID PRN 06/01/22 [History] Pantoprazole [Protonix] 40 mg PO AC-BRKFST #30 tab 06/18/22 [Rx] Thiamine [Vitamin B-1] 100 mg PO DAILY tab 06/18/22 [Rx] Folic Acid 1 mg PO DAILY 06/29/22 [History] Levofloxacin [Levaquin] 750 mg PO DAILY 4 Days #4 tab 07/10/22 [Rx] Follow up Appointment(s)/Referral(s): None,Stated [Primary Care Provider] - 1-2 days Patient Instructions/Handouts: Levofloxacin (By mouth), Heart Healthy Diet (DC), Basic Carbohydrate Counting (DC), Abuse of Alcohol (DC), Pneumonia (DC) Activity/Diet/Wound Care/Special Instructions: Activity: As tolerated. Take breaks as needed. Diet: Heart healthy and carb consistent diet. Recommended protein supplements such as ensure 3 times daily between meals. Special Instructions: Take all of your medications as directed and remember to keep all of your doctor's appointments and follow-up as needed. As we have discussed it is very important that you avoid any and all use of alcohol. If you continue with daily alcohol abuse it is going to lead to further deterioration of your health and can result in consequences up to and including . Thank you for allowing us to participate in your care, it was truly a pleasure having you for our patient!!! Discharge/Stand Alone Forms: AA Meetings [place], Who Do I Call?, Community Resources, Outpatient Counseling, Inp Substance Abuse Facilities Discharge Disposition: HOME SELF-CARE
[2022-07-10] MEDS ORDERED: LEVOFLOXACIN 750MG-D5W PMX 750 MG in DEXTROSE/WATER 1 150ML.BAG IVPB SCH (19:00)
== END 2022-07-10 15:04 | disposition home or self-care (01) ==
LOC: EC 17:29 → 6NMEDSUR 19:26
PROVIDERS: ADMIT Internal Medicine; ATTEND Internal Medicine
DX: F10.220 Alcohol dependence with intoxication, uncomplicated (principal); J69.0 Pneumonitis due to inhalation of food and vomit; R79.89 Other specified abnormal findings of blood chemistry; J44.9 Chronic obstructive pulmonary disease, unspecified; G40.909 Epilepsy, unspecified, not intractable, without status epilepticus; K58.9 Irritable bowel syndrome, unspecified; E43 Unspecified severe protein-calorie malnutrition; G62.9 Polyneuropathy, unspecified; F31.9 Bipolar disorder, unspecified; F90.9 Attention-deficit hyperactivity disorder, unspecified type; F41.9 Anxiety disorder, unspecified; F17.200 Nicotine dependence, unspecified, uncomplicated; F32.A Depression, unspecified; J98.11 Atelectasis; Z79.899 Other long term (current) drug therapy; Z79.01 Long term (current) use of anticoagulants; Z82.49 Family history of ischemic heart disease and other diseases of the circulatory system; Z80.3 Family history of malignant neoplasm of breast; Z88.0 Allergy status to penicillin; Z68.23 Body mass index [BMI] 23.0-23.9, adult; Z86.718 Personal history of other venous thrombosis and embolism; Y90.8 Blood alcohol level of 240 mg/100 ml or more
CPT/HCPCS: 96366; 96367; 96365; 96372; 96375; 99284; 36415; 80053 ×2; 83735 ×2; 85025; 85027; 71046; G0378 ×2; G0480; J3411; J1956; 80320

== ENCOUNTER 2022-07-11 00:31 | Emergency (ER) | payer MEDICARE, OTHER ==
[2022-07-11 00:41] VITALS: TEMP 98.1
[2022-07-11] MEDS ORDERED: hydrOXYzine HCL 25 MG TAB PO STA (00:52)
[2022-07-11] MEDS ORDERED: MELATONIN 5 MG TABLET PO STA (00:53)
--- NOTE | 2022-07-11 01:21 | XR ---
EXAMINATION TYPE: XR chest 2V DATE OF EXAM: 07/11/2022 COMPARISON: Yesterday HISTORY: Pneumonia Chest pain TECHNIQUE: 2 views FINDINGS: Heart is normal. There is some right middle lobe linear density. The other lung reyna are clear. There are no hilar masses. No pleural effusion. Bony thorax is intact IMPRESSION: There is some right middle lobe linear infiltrate and atelectasis without much change com pared to yesterday. Normal heart.
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
[2022-07-11 02:10] VITALS: BP 139/74; PULSE 88; RESP 15
== END 2022-07-11 02:24 | disposition home or self-care (01) ==
LOC: EC 00:31
DX: T73.0XXA Starvation, initial encounter (principal); G47.00 Insomnia, unspecified; J44.9 Chronic obstructive pulmonary disease, unspecified; F41.9 Anxiety disorder, unspecified; F90.9 Attention-deficit hyperactivity disorder, unspecified type; F31.9 Bipolar disorder, unspecified; F17.200 Nicotine dependence, unspecified, uncomplicated; Z88.6 Allergy status to analgesic agent; Z91.013 Allergy to seafood; Z88.1 Allergy status to other antibiotic agents; Z79.01 Long term (current) use of anticoagulants; X58.XXXA Exposure to other specified factors, initial encounter
CPT/HCPCS: 71046; 99283; 99284

== ENCOUNTER 2022-07-15 02:03 | Emergency (ER) | payer MEDICARE, OTHER ==
[2022-07-15 02:08] VITALS: RESP 18
[2022-07-15] MEDS ORDERED: DIPHENOX-ATROP 2.5-0.025 MG 1 EACH TAB PO STA (02:47)
[2022-07-15 02:48] VITALS: TEMP 98
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
[2022-07-15 03:10] LABS: Basophils # (A) 0.1 k/uL (0-0.2); Basophils % (A) 1 %; Eosinophils # (A) 0.4 k/uL (0-0.7); Eosinophils % (A) 5 %; HCT 33.7 % (39.0-53.0); HGB 11.1 gm/dL (13.0-17.5); Lymphocytes # (A) 1.9 k/uL (1.0-4.8); Lymphocytes % (A) 22 %; MCH 32.9 pg (25.0-35.0); MCHC 32.9 g/dL (31.0-37.0); MCV 100.1 fL (80.0-100.0); Macrocytosis Slight; Mean Platelet Volume 8.3; Monocytes # (A) 0.4 k/uL (0-1.0); Monocytes % (A) 5 %; Neutrophils # (A) 5.7 k/uL (1.3-7.7); Neutrophils % (A) 65 %; Platelet Count 203 k/uL (150-450); RBC 3.37 m/uL (4.30-5.90); RDW 14.2 % (11.5-15.5); WBC 8.8 k/uL (3.8-10.6)
[2022-07-15 03:27] LABS: ALT 22 U/L (4-49); AST 21 U/L (17-59); African American GFR (CKD) >90 (>60 ml/min/1.73 sqM); Albumin 4.1 g/dL (3.5-5.0); Alkaline Phosphatase 89 U/L (38-126); Anion Gap 7 mmol/L; Blood Urea Nitrogen 15 mg/dL (9-20); Calcium 9.1 mg/dL (8.4-10.2); Carbon Dioxide 27 mmol/L (22-30); Chloride 106 mmol/L (98-107); Glucose 108 mg/dL (74-99); Non-African American GFR(CKD) >90 (>60 ml/min/1.73 sqM); Potassium 3.9 mmol/L (3.5-5.1); Sodium 140 mmol/L (137-145); Total Bilirubin 0.3 mg/dL (0.2-1.3); Total Protein 7.1 g/dL (6.3-8.2)
[2022-07-15 05:58] VITALS: BP 136/88; PULSE 99
== END 2022-07-15 05:50 | disposition home or self-care (01) ==
LOC: EC 02:03
DX: R19.7 Diarrhea, unspecified (principal); J44.9 Chronic obstructive pulmonary disease, unspecified; F41.9 Anxiety disorder, unspecified; F31.9 Bipolar disorder, unspecified; F17.200 Nicotine dependence, unspecified, uncomplicated; F90.9 Attention-deficit hyperactivity disorder, unspecified type; Z91.013 Allergy to seafood; Z88.0 Allergy status to penicillin; Z88.1 Allergy status to other antibiotic agents; Z88.6 Allergy status to analgesic agent; Z79.899 Other long term (current) drug therapy
CPT/HCPCS: 36415; 80053; 85025; 99284

== ENCOUNTER 2022-07-19 12:11 | Emergency (ER) | payer MEDICARE ==
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
--- NOTE | 2022-07-19 13:30 | CT ---
EXAMINATION TYPE: CT brain wo con DATE OF EXAM: 07/19/2022 COMPARISON: 06/29/2022 HISTORY: Altered mental status. CT DLP: 1076.[address] of the brain was performed. The ventricles, basal cisterns and sulci overlying the cerebral convexities demonstrate mild enlargem ent. There is no evidence for intracranial hemorrhage or sulcal effacement. There is decreased attenuation about the periventricular white matter and deep white matter of both c erebral hemispheres, compatible with chronic small vessel ischemia. Differential diagnosis does inclu de demyelination. No mass effects are seen.No midline shift. Osseous calvarium is intact. If symptoms persist consider MRI. IMPRESSION: 1. Age related atrophic and chronic small vessel ischemic change without acute intracranial process s een at this time.
[2022-07-19 14:15] VITALS: BP 103/72; PULSE 60; RESP 16
== END 2022-07-19 22:11 | disposition home or self-care (01) ==
LOC: EC 12:11
DX: I67.82 Cerebral ischemia (principal); F19.10 Other psychoactive substance abuse, uncomplicated; J44.9 Chronic obstructive pulmonary disease, unspecified; F90.9 Attention-deficit hyperactivity disorder, unspecified type; F41.9 Anxiety disorder, unspecified; F31.9 Bipolar disorder, unspecified; F17.200 Nicotine dependence, unspecified, uncomplicated; Z91.013 Allergy to seafood; Z88.0 Allergy status to penicillin; Z88.6 Allergy status to analgesic agent; Z88.1 Allergy status to other antibiotic agents
CPT/HCPCS: 70450; 93005; 99285

== ENCOUNTER 2022-07-20 21:20 | Emergency (ER) | payer MEDICARE ==
[2022-07-21 00:18] VITALS: BP 92/61; PULSE 91; RESP 16; TEMP 98.2
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
== END 2022-07-21 05:20 | disposition home or self-care (01) ==
LOC: EC 21:20
DX: F10.129 Alcohol abuse with intoxication, unspecified (principal); J44.9 Chronic obstructive pulmonary disease, unspecified; F90.9 Attention-deficit hyperactivity disorder, unspecified type; F41.9 Anxiety disorder, unspecified; F31.9 Bipolar disorder, unspecified; F17.210 Nicotine dependence, cigarettes, uncomplicated; Z91.013 Allergy to seafood; Z88.6 Allergy status to analgesic agent; Z88.0 Allergy status to penicillin; Z88.1 Allergy status to other antibiotic agents
CPT/HCPCS: 99284

== ENCOUNTER 2022-07-23 07:12 | Emergency (ER) | payer MEDICARE ==
[2022-07-23 07:29] VITALS: BP 124/78; PULSE 74; RESP 18; TEMP 98
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
== END 2022-07-23 08:06 | disposition home or self-care (01) ==
LOC: EC 07:12
DX: T73.0XXA Starvation, initial encounter (principal); J44.9 Chronic obstructive pulmonary disease, unspecified; G40.909 Epilepsy, unspecified, not intractable, without status epilepticus; F41.9 Anxiety disorder, unspecified; F31.9 Bipolar disorder, unspecified; F17.200 Nicotine dependence, unspecified, uncomplicated; Z91.013 Allergy to seafood; Z88.0 Allergy status to penicillin; Z88.6 Allergy status to analgesic agent; Z88.8 Allergy status to other drugs, medicaments and biological substances; Z79.899 Other long term (current) drug therapy
CPT/HCPCS: 82075; 99284

== ENCOUNTER 2022-07-23 09:40 | Emergency (ER) | payer MEDICARE ==
[2022-07-23 09:56] VITALS: BP 115/85; PULSE 90; RESP 18; TEMP 97.6
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
== END 2022-07-23 11:35 | disposition home or self-care (01) ==
LOC: EC 09:40
DX: Z76.5 Malingerer [conscious simulation] (principal); T73.0XXA Starvation, initial encounter; J44.9 Chronic obstructive pulmonary disease, unspecified; G40.909 Epilepsy, unspecified, not intractable, without status epilepticus; F41.9 Anxiety disorder, unspecified; F31.9 Bipolar disorder, unspecified; F17.200 Nicotine dependence, unspecified, uncomplicated; Z91.013 Allergy to seafood; Z88.0 Allergy status to penicillin; Z88.1 Allergy status to other antibiotic agents; Z88.8 Allergy status to other drugs, medicaments and biological substances; Z79.899 Other long term (current) drug therapy
CPT/HCPCS: 82075; 99284

== ENCOUNTER 2022-07-27 14:43 | Emergency (ER) | payer MEDICARE ==
--- NOTE | 2022-07-27 23:35 | XR ---
EXAMINATION TYPE: XR KUB DATE OF EXAM: 07/27/2022 COMPARISON: NONE HISTORY: Right lower quadrant pain TECHNIQUE: Single view FINDINGS: Bowel gas pattern is normal. No sign of intestinal obstruction or pneumoperitoneum. Fecal p attern is normal. There is a mild lumbar levoscoliosis. There is 5 mm calcification over the left kid kayleigh. IMPRESSION: Possible left renal calculus. Nonacute abdomen.
[2022-07-28] MEDS ORDERED: ACETAMINOPHEN TAB 325 MG TAB PO STA (00:24)
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
[2022-07-28 01:49] LABS: Basophils % (A) 1 %; Eosinophils # (A) 0.2 k/uL (0-0.7); Eosinophils % (A) 3 %; HCT 34.2 % (39.0-53.0); HGB 11.2 gm/dL (13.0-17.5); Hypochromasia Slight; Lymphocytes # (A) 1.5 k/uL (1.0-4.8); Lymphocytes % (A) 27 %; MCH 32.1 pg (25.0-35.0); MCHC 32.7 g/dL (31.0-37.0); MCV 98.3 fL (80.0-100.0); Mean Platelet Volume 7.7; Monocytes # (A) 0.3 k/uL (0-1.0); Monocytes % (A) 6 %; Neutrophils # (A) 3.4 k/uL (1.3-7.7); Neutrophils % (A) 62 %; RBC 3.47 m/uL (4.30-5.90); RDW 14.3 % (11.5-15.5); WBC 5.5 k/uL (3.8-10.6)
[2022-07-28 02:01] LABS: ALT 26 U/L (4-49); AST 50 U/L (17-59); African American GFR (CKD) >90 (>60 ml/min/1.73 sqM); Alkaline Phosphatase 92 U/L (38-126); Anion Gap 5 mmol/L; Blood Urea Nitrogen 8 mg/dL (9-20); Calcium 8.6 mg/dL (8.4-10.2); Carbon Dioxide 26 mmol/L (22-30); Chloride 108 mmol/L (98-107); Glucose 93 mg/dL (74-99); Non-African American GFR(CKD) >90 (>60 ml/min/1.73 sqM); Sodium 139 mmol/L (137-145); Total Bilirubin 0.9 mg/dL (0.2-1.3); Total Protein 7.5 g/dL (6.3-8.2)
--- NOTE | 2022-07-28 02:29 | CT ---
EXAMINATION TYPE: CT abdomen pelvis w con DATE OF EXAM: 07/28/2022 COMPARISON: None HISTORY: RLQ PAIN CT DLP: 628.2 mGycm Automated exposure control for dose reduction was used. CONTRAST: Performed with IV Contrast, patient injected with 100 mL of Isovue 370. Images obtained from the diaphragm to the floor of the pelvis with IV contrast. The lung bases are clear of infiltrate. No pleural effusion. There is minimal subsegmental atelectasi s in the right middle lobe. No pleural effusion. Heart size is normal. No pericardial effusion. Liver spleen stomach pancreas and gallbladder appear intact. The bile ducts are not dilated. There is a 1 cm cyst in the anterior right lobe of the liver. There is no adrenal mass. Kidneys have normal size and contour. No hydronephrosis. Ureters are not di lated there is 8mm calculus medial left kidney. No retroperitoneal adenopathy. Bladder distends karo hly. No inguinal hernia. No pelvic mass. The lumbar vertebrae have mild thoracolumbar dextroscoliosis. There is degenerative disc space narrow ing at L1-2 and L3-4 with spurring and vacuum disc. A similar change at L5-S1. No compression fractur e. Posterior elements are intact. No focal bone destruction. The bony pelvis is intact. The hip joint s are intact. There is no mesenteric edema. No ascites or free air. No sign of a bowel obstruction. Appendix is pos terior and appears normal. There is tiny amount of fluid in the pelvis. Impression: Nonobstructing left renal calculus. 2 cm left renal parapelvic cyst. Normal appendix. There is tiny a mount of low-density fluid in the pelvis of uncertain significance.
[2022-07-28 02:34] LABS: Potassium 5.6 mmol/L (3.5-5.1)
[2022-07-28 02:47] LABS: Platelet Count 571 k/uL (150-450)
[2022-07-28 03:00] VITALS: BP 133/86; PULSE 79; RESP 18; TEMP 97.8
== END 2022-07-28 05:30 | disposition home or self-care (01) ==
LOC: EC 14:43
DX: R10.9 Unspecified abdominal pain (principal); N28.1 Cyst of kidney, acquired; N20.0 Calculus of kidney; J44.9 Chronic obstructive pulmonary disease, unspecified; F90.9 Attention-deficit hyperactivity disorder, unspecified type; F41.9 Anxiety disorder, unspecified; F31.9 Bipolar disorder, unspecified; F17.200 Nicotine dependence, unspecified, uncomplicated; Z88.0 Allergy status to penicillin; Z88.1 Allergy status to other antibiotic agents; Z88.6 Allergy status to analgesic agent
CPT/HCPCS: 36415; 80053; 85025; 74018; 74177; 99284; Q9967

== ENCOUNTER → 2022-08-24 | Outpatient (CLI) | payer MEDICARE ==
[2022-08-24 08:18] VITALS: BP 120/70; PULSE 89; RESP 18
--- NOTE | 2022-08-24 15:23 | P.PAINPG ---
PQRS Measure Charge Sheet Comment: A 57 yr old male with a history of severe and chronic low back pain secondary to lumbar DDD and spondylosis with facet arthropathy without myelopathy presents today for evaluation s/p MARGARITO L5-S1. Pt states he experienced 50 % pain relief x 8 wks s/p procedure. Pain level is currently at 8 /10 in intensity, constant, localized in the lower lumbar spine, achy/ sharp in character w shooting towards . Pain is provoked by lifting, bending. Pain is alleviated with Pt in the past, home exercise as tolerated, alternating heat & ice, topicals, meds (OTC but without relief), repositioning and rest. Interventional pain procedures completed include MARGARITO L5-S1, R SI injection, BL MBB L3-L5 x1. Patient is currently on Denies Patient denies any side effects of the medication(s), denies excessive drowsiness or sleepiness, denies suicidal ideation and reports that the current pain medication is helping to control the pain and improve activities of daily living. Patient denies any motor or sensory deficits. Patient denies any fever or night sweats, denies any change in the bowel movements or urination. Physical Examination: -Constitutional: Cooperative. Not in acute distress . - Neurologic: Cranial nerve II to XII intact. No focal neurological deficits. - Psychatric: Alert & oriented x 3. Matching mood & appropriate affect. Judgment and insight intact. - Musculoskeletal: Cervical spine: Muscle bulk/ tone/ strength in the bilateral upper extremities normal Vertebral body tenderness to palpation over Spurling test positive Distraction test positive Facet loading test positive Thoracic spine Muscle bulk / tone/ strength in the bilateral paraspinal muscles normal Vertebral body tender to palpation over Facet loading test positive Lumbar spine: Motor bulk/ tone/ strength lower extremities , thigh and legs : 5/5 Deep tendon reflexes : Normal Knee Jerk. Normal Ankle Jerk . Vertebral body tenderness to palpation over L5, S1 Lumbar Facet Loading Test positive Straight Leg Raise: positive at 30 degrees right side/ left side Gaenslen's Test positive Sacral spine : Severe tenderness over the Sacroiliac joint: right side / left side Range of motion: Flexion of the lumbar spine <60 degrees Range of motion: Extension of the lumbar spine <20 degrees Gaenslen's Test positive Shira test: positive right side / left side Thigh Thrust Test Sacral Thrust Test Assessment and plan: Chronic low back pain secondary to lumbar degenerative disc disease, spondylosis with facet arthropathy without myelopathy Recommendation of follow up w his orthopedic surgeon, Dr Chowdary. Pt also considering neurostimulator device. Script for behavioral health eval provided. All patient questions answered I have spent less than 30 minutes on patient care today. Dr Gaitan was available by phone for the evaluation of this patient. The time was used to review the medical records including relevant urine studies and Prescription history (MAPs), review of the available imaging, evaluation and examination of the patient, coordination of care with the medical staff and if applicable referring physicians, as well as creation of the medical record - Pain Location Lower Back Non-Pharmacological Interventions: Heat, Home Exercise, Ice, Inactivity, Physical Therapy, Position/Reposition, Sitting, Stretching Pharmacological Interventions: Block, Epidural, Scheduled Medication, Topical Medication PQRS Narrative: Smoking Status Current every day smoker Hx Alcohol Use (MH) No Home Medications: Ambulatory Orders Gabapentin 600 mg PO TID 06/01/22 Rivaroxaban [Xarelto] 2.5 mg PO DIRECTED 06/01/22 Trihexyphenidyl [Artane] 2 mg PO TID PRN 06/01/22 Pantoprazole [Protonix] 40 mg PO AC-BRKFST #30 tab 06/18/22 Loperamide [Imodium] 2 mg PO QID PRN #30 capsule 07/15/22 Butalb/APAP/Caff 50-325-40Mg [Fioricet 50-325-40] 1 tab PO Q4H PRN 07/19/22 clonazePAM [KlonoPIN] 1 mg PO TID 07/19/22 Ondansetron Odt [Zofran Odt] 4 mg PO Q8HR PRN #5 tab 07/24/22 Controlled Substance Measures - Controlled Substance Measures Is patient prescribed a controlled substance at discharge?: No
== END ==
LOC: PNWHC3 07:44
PROVIDERS: ATTEND Specialist
DX: M47.816 Spondylosis without myelopathy or radiculopathy, lumbar region (principal); M51.36 Other intervertebral disc degeneration, lumbar region; Z88.1 Allergy status to other antibiotic agents; Z88.6 Allergy status to analgesic agent; Z88.0 Allergy status to penicillin; Z91.013 Allergy to seafood; F17.200 Nicotine dependence, unspecified, uncomplicated
CPT/HCPCS: 99211

== ENCOUNTER 2022-12-16 23:00 | Inpatient (IN) | payer MEDICARE, OTHER ==
[2022-12-17] MEDS ORDERED: SODIUM CHLORIDE 0.9% 1,000 ML IV ONE ×2 (00:49→00:51)
[2022-12-17] MEDS ORDERED: LORazepam 2 MG/ML INJ IV STA ×2 (00:49→02:10)
[2022-12-17] MEDS ORDERED: LORazepam 2 MG/ML INJ IV PRN (00:50)
[2022-12-17] MEDS ORDERED: THIAMINE 100 MG/ML 2 ML VIAL IM STA (00:50)
[2022-12-17 01:23] LABS: Anisocytosis Slight; Basophils % (A) 0 %; Eosinophils % (A) 0 %; HCT 36.7 % (39.0-53.0); Lymphocytes # (A) 1.3 k/uL (1.0-4.8); Lymphocytes % (A) 12 %; MCHC 32.8 g/dL (31.0-37.0); MCV 94.3 fL (80.0-100.0); Mean Platelet Volume 7.5; Monocytes # (A) 0.5 k/uL (0-1.0); Monocytes % (A) 5 %; Neutrophils # (A) 9.4 k/uL (1.3-7.7); Neutrophils % (A) 83 %; Platelet Count 321 k/uL (150-450); RBC 3.89 m/uL (4.30-5.90); RDW 17.3 % (11.5-15.5); WBC 11.3 k/uL (3.8-10.6)
[2022-12-17 01:32] LABS: ALT 164 U/L (4-49); AST 400 U/L (17-59); African American GFR (CKD) >90 (>60 ml/min/1.73 sqM); Albumin 4.6 g/dL (3.5-5.0); Alkaline Phosphatase 125 U/L (38-126); Anion Gap 24 mmol/L; Blood Urea Nitrogen 13 mg/dL (9-20); Calcium 9.2 mg/dL (8.4-10.2); Carbon Dioxide 17 mmol/L (22-30); Chloride 87 mmol/L (98-107); Glucose 96 mg/dL (74-99); Non-African American GFR(CKD) >90 (>60 ml/min/1.73 sqM); Potassium 4.5 mmol/L (3.5-5.1); Sodium 128 mmol/L (137-145); Total Protein 7.4 g/dL (6.3-8.2)
[2022-12-17 01:52] LABS: Alcohol 92 mg/dL
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
[2022-12-17] MEDS ORDERED: NALOXONE 0.4 MG/ML 1 ML VIAL IV PRN (02:23)
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
[2022-12-17] MEDS: LORazepam 2 MG/ML INJ IV PRN ×4 (07:01→23:05)
[2022-12-17] MEDS: SODIUM CHLORIDE 0.9% 1,000 ML IV SCH ×2 (07:33→15:11)
[2022-12-17] MEDS: NICOTINE 21MG/24HR PATCH TRANSDERM SCH (08:59)
[2022-12-17] MEDS: ENOXAPARIN 40 MG/0.4 ML SYRINGE SQ SCH (08:59)
[2022-12-17] MEDS ORDERED: ONDANSETRON 4 MG/2 ML VIAL IVP PRN (12:09)
[2022-12-17] MEDS: chlordiazePOXIDE 25 MG CAP PO SCH ×3 (13:27→20:55)
--- NOTE | 2022-12-17 13:57 | P.PN ---
Subjective Progress Note Date: 12/17/22 Hospital course: Patient is a very pleasant 57-year-old male with a past medical history of chronic pain, alcohol abuse, anxiety, COPD, DVTs no longer on anticoagulation due to alcoholism, neuropathy, chronic pain, bipolar disorder, paranoid schizophrenia, and nicotine dependence. He is very well known to our services secondary to multiple previous admissions resulting from alcohol abuse/intoxication. He presented to the emergency department overnight secondary to alcohol withdrawal. Patient underwent full evaluation in the emergency department. CBC showing leukocytosis with WBC count of 11.3 and normocytic anemia with hemoglobin of 12.0. BMP revealing hyponatremia with sodium 128, chloride 87, bicarb 17, and anion gap of 24. Liver profile revealing transaminitis with AST of 400, ALT of 164, and total bili of 2.0. Serum alcohol level was 92. Physical exam: Vital signs reviewed and stable. General: Nontoxic, no distress and appears older than stated age. Thin, emaciated malnourished appearance. Derm: Skin warm and dry, normal coloration for ethnicity. Head: Atraumatic, normocephalic and symmetric. Eyes: EOMs intact, no lid lag, and anicteric sclera Mouth: no lip lesions, mucus membranes moist Cardiovascular: regular rate and rhythm with normal S1S2, no murmur, positive posterior tibial pulses bilaterally, and cap refill < 2 seconds. Lungs: Respirations even, regular, and unlabored on room air. Lungs CTA bilaterally, no rhonchi, no rales, no wheezing, and no accessory muscle usage. Abdominal: soft, nontender to palpation, no guarding, no appreciable organomegaly Ext: ROM intact. No gross muscle atrophy, no edema, no contractures Neuro: Speech clear, face symmetrical and CN II-XII grossly intact with no noted focal neuro deficits Psych: Alert and oriented to person, place, time, and situation. Appropriate and pleasant affect. Assessment and Plan of Care: Delirium tremens, Acute alcohol withdrawal in long-standing alcoholic Transaminitis, secondary to chronic alcohol abuse. Dehydration secondary to alcohol abuse Hypochloremic Hyponatremia, chronic secondary to daily alcohol abuse. -Continue with IV fluid hydration. -Monitoring of CIWA scores to continue and patient to be medicated with Ativan 0.5 mg every 4 hours as needed for CIWA score of 4-5, Ativan 1 mg every 4 hours for CIWA score of 6-7, Ativan 2 mg every 3 hours CIWA score of 8-9, and Ativan 2 mg every 2 hours forr CIWA score of 10 or greater. Patient has received a total of 5 mg of Ativan since admission. Current CIWA score is 7. -Fall precautions, seizure precautions, and elopement precautions in place. -Patient with tachycardia, tachypnea, and low-grade temp of 100.3. This is likely secondary to acute alcohol withdrawal, however will obtain a chest x-ray to rule out aspiration. History of DVTs. No longer on anticoagulation secondary to high risks with chronic alcohol abuse -DVT prophylaxis with Lovenox Nicotine dependence. Educated and encouraged patient on the benefits of smoking cessation and the risks of continued use. -Nicotine patch 21 mg daily Severe protein malnourishment. -Recommend alcohol cessation and use of Protein supplements 3 times daily between meals. CODE STATUS: Full code DVT prophylaxis: Lovenox Discussed with: Patient and RN Anticipated discharge date: Clinical course to determine Anticipated discharge place: Home Patient was seen independently by Nurse Pracitioner. This document was prepared using [employer] dictation software. Please allow for errors in bull chain operator, while rare they do occur. I reviewed the documentation as provided by the BOBBY above, who is the original author of this note. I agree with the documented assessment and plan, with the following changes: none Objective - Vital Signs Vital signs: Vital Signs Temp 97.5 F L 12/16/22 23:43 Pulse 92 12/17/22 02:24 Resp 18 12/17/22 02:24 BP 159/90 12/16/22 23:43 Pulse Ox 96 12/17/22 02:24 FiO2 Intake & Output 12/16/22 12/17/22 12/17/22 18:59 06:59 18:59 Weight 68.039 kg - Labs CBC & Chem 7: 12/18/22 07:33 12/18/22 07:33 Labs: Abnormal Lab Results - Last 24 Hours (Table) 12/17/22 12/17/22 Range/Units 01:04 01:04 WBC 11.3 H (3.8-10.6) k/uL RBC 3.89 L (4.30-5.90) m/uL Hgb 12.0 L (13.0-17.5) gm/dL Hct 36.7 L (39.0-53.0) % RDW 17.3 H (11.5-15.5) % Neutrophils # 9.4 H (1.3-7.7) k/uL Sodium 128 L (137-145) mmol/L Chloride 87 L (98-107) mmol/L Carbon Dioxide 17 L (22-30) mmol/L Creatinine 0.59 L (0.66-1.25) mg/dL Total Bilirubin 2.0 H (0.2-1.3) mg/dL AST 400 H (17-59) U/L ALT 164 H (4-49) U/L
--- NOTE | 2022-12-17 14:48 | XR ---
EXAMINATION TYPE: XR abdomen acute w cxr DATE OF EXAM: 12/17/2022 2:10 PM INDICATION: Patient age:Male; 57 years old; Reason for study: Low-grade temp, tachypnea, and tachycardia; COMPARISON: 07/28/2022 CT TECHNIQUE: Two radiographic views of the abdomen (upright and supine) and a frontal chest radiograph were obtained. FINDINGS CHEST: Lungs/Pleura: The lungs are clear. There is no evidence of pleural effusion, focal consolidation or p neumothorax. Mediastinum: Unremarkable. Vasculature: Normal. Heart: Normal in size. Musculoskeletal: The osseous structures are intact. Other findings: No significant. FINDINGS ABDOMEN: Bowel gas pattern: Normal without dilated loops of small or large bowel. Fecal material and gas are d emonstrated throughout the colon and rectum. Abnormal calcifications: None. Musculoskeletal: Multilevel degeneration changes with scoliosis apex left L3. Other: None. IMPRESSION: 1. No radiographic evidence for acute abdominal process. 2. No acute cardiopulmonary process
[2022-12-17] MEDS: HYDROcodone/APAP 5-325MG 1 EACH TAB PO PRN (23:26)
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
[2022-12-18] MEDS: LORazepam 2 MG/ML INJ IV PRN ×4 (03:18→12:44)
[2022-12-18] MEDS: SODIUM CHLORIDE 0.9% 1,000 ML IV SCH (03:20)
[2022-12-18] MEDS: HYDROcodone/APAP 5-325MG 1 EACH TAB PO PRN ×3 (05:21→15:45)
[2022-12-18] MEDS: ENOXAPARIN 40 MG/0.4 ML SYRINGE SQ SCH ×2 (08:11→08:14)
[2022-12-18] MEDS: chlordiazePOXIDE 25 MG CAP PO SCH ×2 (08:11→15:01)
[2022-12-18] MEDS: NICOTINE 21MG/24HR PATCH TRANSDERM SCH (08:11)
[2022-12-18] MEDS ORDERED: THIAMINE 100 MG TAB PO SCH (09:00)
[2022-12-18 11:13] LABS: HCT 35.4 % (39.6-50.0); HGB 11.6 g/dL (13.0-17.0); MCH 31.3 pg (27.0-32.0); MCHC 32.8 g/dL (32.0-37.0); MCV 95.4 fL (80.0-97.0); Mean Platelet Volume 10.2 fL (9.5-12.2); NRBC Per 100 WBC 0 /100 WBCS (0.0-0.0); Platelet Count 185 X 10*3/uL (140-440); RBC 3.71 X 10*6/uL (4.40-5.60); RDW 18.5 % (11.5-14.5); WBC 5.21 X 10*3/uL (4.50-10.00)
[2022-12-18 11:26] LABS: African American GFR (CKD) 131.2 (60.0-200.0); Albumin 3.7 g/dL (3.8-4.9); Albumin/Globulin Ratio 1.48 (1.60-3.17); Anion Gap 11.6 mmol/L (10.00-18.00); BUN/Creat Ratio 20.17 Ratio (12.00-20.00); Blood Urea Nitrogen 12.1 mg/dL (9.0-27.0); Calcium 9.3 mg/dL (8.7-10.3); Carbon Dioxide 24.4 mmol/L (20.0-27.5); Globulin 2.5 g/dL (1.6-3.3); Magnesium 1.7 mg/dL (1.5-2.4); Non-African American GFR(CKD) 113.2 (60.0-200.0); Total Bilirubin 1.2 mg/dL (0.30-1.20); Total Protein 6.2 g/dL (6.2-8.2)
--- NOTE | 2022-12-18 14:34 | P.PN ---
Progress Note - Text Progress Note Date: 12/18/22 Interval History: Patient was seen resting in bed and was attempting to urinate. Currently, the patient is alert and oriented in all spheres. He is denying any suicidal or homicidal ideation, intention, and/or plan. He is not reporting any auditory or visual hallucinations. He is denying any paranoia or other delusions. The patient was counseled at length on alcohol cessation and was offered resources for inpatient substance abuse rehabilitation. The patient is primarily concerned as to where his belongings are. He does express significant concern for his personal safety. He states that he was brought in by police after being drunk in the [employer] store. Mental Status Exam: General Appearance: Patient appears to be stated age is alert, directable, and cooperative. Behavior: Patient is calmly seated without any agitated behavior. Speech: Patient's speech is fluent and nonpressured. Mood/Affect: Mood is improving mildly, affect is congruent and constricted. Suicidality/Homicidality: Patient denies having any suicidal or homicidal ideation intent or plan. Perceptions: Patient denies any visual hallucinations and denies any auditory hallucinations Though content/process: There is no evidence of any delusional thought content and thought process is linear and goal-directed. [place]. Simplistic and lacking detail. Memory and concentration: AOX3, grossly intact for the purposes of this session Judgment and insight: Fair Vital Signs Temp 98.4 F 12/18/22 07:56 Pulse 89 12/18/22 07:56 Resp 16 12/18/22 07:56 BP 119/81 12/18/22 07:56 Pulse Ox 96 12/18/22 07:56 FiO2 Intake & Output 12/17/22 12/18/22 12/18/22 18:59 06:59 18:59 Intake Total 1620 Output Total 1400 300 300 Balance -1400 1320 -300 Weight 68.039 kg Intake: Intake, IV Titration 900 Amount Sodium Chloride 0.9% 1, 900 000 ml @ 75 mls/hr IV . [id number] ARCHIE Rx#:[id number] Oral 720 Output: Urine 1400 300 300 Other: Voiding Method Urinal Toilet Urinal # Voids 1 # Bowel Movements 1 Laboratory Results - Last 24 Hours 12/18/22 12/18/22 07:33 07:33 WBC 5.21 RBC 3.71 L Hgb 11.6 L Hct 35.4 L MCV 95.4 MCH 31.3 MCHC 32.8 RDW 18.5 H Plt Count 185 MPV 10.2 Absolute Nucleated RBC 0 NRBC/100 WBC Diff 0 Sodium 140 Potassium 4.0 Chloride 104 Carbon Dioxide 24.4 Anion Gap 11.60 BUN 12.1 Creatinine 0.6 Est GFR (CKD-EPI)AfAm 131.2 Est GFR (CKD-EPI)NonAf 113.2 BUN/Creatinine Ratio 20.17 H Glucose 163 H Calcium 9.3 Magnesium 1.7 Total Bilirubin 1.20 AST 188 H ALT 160 H Alkaline Phosphatase 107 Total Protein 6.2 Albumin 3.7 L Globulin 2.5 Albumin/Globulin Ratio 1.48 L Assessment Alcohol use disorder, severe Tobacco use disorder Opioid use disorder, in remission Rule out intellectual disability Plan: -Continue your medical management and treatment for alcohol withdrawal. -At this time patient DOES NOT meet criteria for inpatient psychiatric admission. The patient is currently not endorsing any suicidal or homicidal ideation, intention, and/or plan. He is not presenting with any imminent risk of harm to self or others. He reports no access to firearms or other weapons. He will remain at chronically elevated risk due to his substance abuse. He is currently alert and oriented in all spheres. Primary diagnosis is substance related and the patient is not a good candidate for inpatient psychiatric admission. -Delirium precautions recommended with patient including - avoiding use of narcotics and REGISTERED PHYSICAL THERAPIST sedatives, limit anticholinergic medications when possible, frequent re-orientation, minimize use of restraints, open window shades during the day and close them at night -Would recommend the following medication changes/additions: No medication at the medications we made at this time. -Patient is cleared psychiatrically for discharge. Recommend outpatient follow- up as well as resources for substance abuse. Patient appears to be pre- contemplative at this time. -Psychiatry will sign off at this point, please contact with any questions.
[2022-12-18 15:18] VITALS: BP 123/78; PULSE 97; RESP 18; TEMP 97.8
--- NOTE | 2022-12-18 15:26 | P.DS ---
Providers Date of admission: 12/17/22 02:23 Expected date of discharge: 12/18/22 Attending physician: Norbert Arredondo MD Consults: 12/17/22 02:23 Consult Physician Routine Consulting Provider: Ermias Aguilar Consult Reason/Comments: Alcohol dependence Do you want consulting provider notified?: Yes Primary care physician: Stated None Hospital Course: Discharge Diagnosis: Alcohol withdrawal with DTs. Patient was strongly advised on avoiding all further alcohol use. Patient was encouraged to attend inpatient drug and alcohol rehabilitation facility. He states he was just discharged from rehab and does not want to go back. Patient states he is working on a project and will work on quitting drinking. Patient was again instructed that continued abuse of alcohol can only lead to detrimental health consequences up to and including . Patient was provided with outpatient resources. Delirium tremens, Acute alcohol withdrawal in long-standing alcoholic Transaminitis, secondary to chronic alcohol abuse. Hypochloremic Hyponatremic Dehydration, secondary to chronic secondary to daily alcohol abuse. Patient was provided with IV fluid hydration. History of DVTs. No longer on anticoagulation secondary to high risks with chronic alcohol abuse. Severe protein malnourishment. Recommend alcohol cessation and use of Protein supplements 3 times daily between meals. COPD with continued nicotine dependence, recommend smoking cessation. Chronic pain Bipolar disorder Paranoid schizophrenia Hospital Course: Patient is a very pleasant 57-year-old male with a past medical history of chronic pain, alcohol abuse, anxiety, COPD, DVTs no longer on anticoagulation due to alcoholism, neuropathy, chronic pain, bipolar disorder, paranoid schizophrenia, and nicotine dependence. He is very well known to our services secondary to multiple previous admissions resulting from alcohol abuse/intoxication. He presented to the emergency department overnight secondary to alcohol withdrawal. Patient underwent full evaluation in the emergency department. CBC showing leukocytosis with WBC count of 11.3 and normocytic anemia with hemoglobin of 12.0. BMP revealing hyponatremia with sodium 128, chloride 87, bicarb 17, and anion gap of 24. Liver profile revealing transaminitis with AST of 400, ALT of 164, and total bili of 2.0. Serum alcohol level was 92. Patient underwent hospitalization and treatment for alcohol withdrawal. Patient was treated with benzodiazepines for treatment of his alcohol withdrawal. Patient encouraged to go to inpatient rehab facility, patient declined. Patient was evaluated by psychiatry and cleared from psychiatry standpoint. Patient counseled extensively on alcohol abuse. Patient demanding discharge home. Labs on day of discharge showing normocytic anemia with hemoglobin of 11.6. Resolution of hyponatremia with sodium 140 and i mprovement of transaminitis with total bili of 1.20, AST of 188, and ALT of 160. Patient stable for discharge and strongly encouraged to avoid any and all alcohol use. Physical exam: Vital signs reviewed and stable. General: Nontoxic, no distress and appears older than stated age. Thin, emaciated malnourished appearance. Derm: Skin warm and dry, normal coloration for ethnicity. Head: Atraumatic, normocephalic and symmetric. Eyes: EOMs intact, no lid lag, and anicteric sclera Mouth: no lip lesions, mucus membranes moist Cardiovascular: regular rate and rhythm with normal S1S2, no murmur, positive posterior tibial pulses bilaterally, and cap refill < 2 seconds. Lungs: Respirations even, regular, and unlabored on room air. Lungs CTA bilatera lly, no rhonchi, no rales, no wheezing, and no accessory muscle usage. Abdominal: soft, nontender to palpation, no guarding, no appreciable organomegaly Ext: ROM intact. No gross muscle atrophy, no edema, no contractures Neuro: Speech clear, face symmetrical and CN II-XII grossly intact with no noted focal neuro deficits Psych: Alert and oriented to person, place, time, and situation. Appropriate and pleasant affect. A total of 33 minutes of time were spent preparing this complex discharge summary. Pt was discharged on 12/18/22 at 3:27 PM. Patient was seen independently by Nurse Practitioner. This document was prepared using [employer] dictation software. Please allow for errors in potato inspector while rare they do occur. Patient Condition at Discharge: Stable Plan - Discharge Summary Discharge Rx Participant: Yes New Discharge Prescriptions: Continue Propranolol [Inderal] 20 mg PO BID busPIRone HCL 15 mg PO BID Discharge Medication List Propranolol [Inderal] 20 mg PO BID 12/17/22 [History] busPIRone HCL 15 mg PO BID 12/17/22 [History] Follow up Appointment(s)/Referral(s): None,Stated [Primary Care Provider] - 1-2 days Patient Instructions/Handouts: Abuse of Alcohol (DC), Alcohol Withdrawal (DC) Activity/Diet/Wound Care/Special Instructions: Activity: As tolerated. Take breaks as needed. Diet: Heart healthy and carb consistent diet. Recommended protein supplements such as ensure 3 times daily between meals. Special Instructions: Take all of your medications as directed and remember to keep all of your doctor's appointments and follow-up as needed. As we have discussed it is very important that you avoid any and all use of alcohol. If you continue with daily alcohol abuse it is going to lead to further deterioration of your health and can result in consequences up to and including . Thank you for allowing us to participate in your care, it was truly a pleasure having you for our patient!!! Discharge/Stand Alone Forms: AA Cristiane Morales, Outpatient Counseling, Inp Substance Abuse Facilities Discharge Disposition: HOME SELF-CARE
== END 2022-12-18 16:07 | disposition home or self-care (01) | DRG 896 ==
LOC: EC 23:00 → 4SSUR 12-17 02:23
PROVIDERS: ADMIT Internal Medicine; ATTEND Internal Medicine
PROC: HZ2ZZZZ Detoxification Services for Substance Abuse Treatment (ICD-10-PCS; principal; 2022-12-17)
DX: F10.229 Alcohol dependence with intoxication, unspecified (principal); E43 Unspecified severe protein-calorie malnutrition; E87.1 Hypo-osmolality and hyponatremia; F20.0 Paranoid schizophrenia; F11.91 Opioid use, unspecified, in remission; F10.231 Alcohol dependence with withdrawal delirium; F31.9 Bipolar disorder, unspecified; E87.8 Other disorders of electrolyte and fluid balance, not elsewhere classified; E86.0 Dehydration; J44.9 Chronic obstructive pulmonary disease, unspecified; F17.210 Nicotine dependence, cigarettes, uncomplicated; D64.9 Anemia, unspecified; R74.01 Elevation of levels of liver transaminase levels; G89.29 Other chronic pain; G62.9 Polyneuropathy, unspecified; F41.9 Anxiety disorder, unspecified; Y90.4 Blood alcohol level of 80-99 mg/100 ml; Z86.14 Personal history of Methicillin resistant Staphylococcus aureus infection; Z87.820 Personal history of traumatic brain injury; Z88.0 Allergy status to penicillin; Z88.6 Allergy status to analgesic agent; Z91.013 Allergy to seafood; Z79.899 Other long term (current) drug therapy; Z86.718 Personal history of other venous thrombosis and embolism; Z68.21 Body mass index [BMI] 21.0-21.9, adult; Z81.1 Family history of alcohol abuse and dependence
CPT/HCPCS: 36415; 74022; 80053; 80320; 82075; 83735; 85025; 85027; 96361; 96372; 96374; 96376; 99285

== ENCOUNTER 2022-12-19 23:24 | Emergency (ER) | payer MEDICARE, OTHER ==
[2022-12-19 23:29] VITALS: BP 130/77; RESP 20; TEMP 97.2
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
[2022-12-20 01:04] VITALS: PULSE 123
== END 2022-12-20 01:18 | disposition home or self-care (01) ==
LOC: EC 23:24
DX: R11.0 Nausea (principal); I10 Essential (primary) hypertension; F31.9 Bipolar disorder, unspecified; F41.9 Anxiety disorder, unspecified; J44.9 Chronic obstructive pulmonary disease, unspecified; F17.200 Nicotine dependence, unspecified, uncomplicated; Z79.899 Other long term (current) drug therapy; Z88.0 Allergy status to penicillin; Z88.1 Allergy status to other antibiotic agents; Z88.6 Allergy status to analgesic agent
CPT/HCPCS: 99284

== ENCOUNTER 2022-12-20 03:11 | Emergency (ER) | payer MEDICARE, OTHER ==
[2022-12-20 03:20] VITALS: BP 132/85; PULSE 104; RESP 18; TEMP 98.2
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
== END 2022-12-20 03:59 | disposition home or self-care (01) ==
LOC: EC 03:11
DX: R07.9 Chest pain, unspecified (principal); I10 Essential (primary) hypertension; J44.9 Chronic obstructive pulmonary disease, unspecified; F31.9 Bipolar disorder, unspecified; F41.9 Anxiety disorder, unspecified; F17.200 Nicotine dependence, unspecified, uncomplicated; Z79.899 Other long term (current) drug therapy; Z88.0 Allergy status to penicillin; Z88.1 Allergy status to other antibiotic agents; Z88.6 Allergy status to analgesic agent; Z91.013 Allergy to seafood
CPT/HCPCS: 93005; 99285

== ENCOUNTER 2022-12-21 03:44 | Emergency (ER) | payer MEDICARE, OTHER ==
[2022-12-21 03:51] VITALS: BP 111/78; PULSE 112; RESP 18; TEMP 97.9
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
--- NOTE | 2022-12-21 05:00 | XR ---
EXAMINATION TYPE: XR chest 1V portable DATE OF EXAM: 12/21/2022 COMPARISON: Chest x-ray July 11, 2022 HISTORY: Chest pain. TECHNIQUE: Single portable frontal view of the chest is obtained. FINDINGS: There is no suspicious new focal air space opacity, pleural effusion, or pneumothorax seen . The cardiac silhouette size is stable and within normal limits. The osseous structures are intac t. IMPRESSION: No acute process. No significant change from prior.
[2022-12-21 05:30] LABS: African American GFR (CKD) >90 (>60 ml/min/1.73 sqM); Anion Gap 15 mmol/L; Blood Urea Nitrogen 15 mg/dL (9-20); Carbon Dioxide 21 mmol/L (22-30); Chloride 109 mmol/L (98-107); Glucose 63 mg/dL (74-99); Non-African American GFR(CKD) >90 (>60 ml/min/1.73 sqM); Sodium 145 mmol/L (137-145)
[2022-12-21 05:42] LABS: Anisocytosis Slight; Basophils % (A) 1 %; Eosinophils # (A) 0.2 k/uL (0-0.7); Eosinophils % (A) 7 %; HCT 41.2 % (39.0-53.0); HGB 13.3 gm/dL (13.0-17.5); Lymphocytes # (A) 1.4 k/uL (1.0-4.8); Lymphocytes % (A) 42 %; MCH 31.2 pg (25.0-35.0); MCHC 32.3 g/dL (31.0-37.0); MCV 96.8 fL (80.0-100.0); Macrocytosis Slight; Mean Platelet Volume 8.8; Monocytes # (A) 0.2 k/uL (0-1.0); Monocytes % (A) 6 %; Neutrophils # (A) 1.3 k/uL (1.3-7.7); Neutrophils % (A) 40 %; Platelet Count 201 k/uL (150-450); RBC 4.26 m/uL (4.30-5.90); RDW 17.8 % (11.5-15.5); WBC 3.4 k/uL (3.8-10.6)
[2022-12-21 06:12] LABS: Glucose,Whole Blood 114 mg/dL (70-110)
== END 2022-12-21 06:40 | disposition home or self-care (01) ==
LOC: EC 03:44
DX: R07.9 Chest pain, unspecified (principal); E16.2 Hypoglycemia, unspecified; I10 Essential (primary) hypertension; J44.9 Chronic obstructive pulmonary disease, unspecified; F41.9 Anxiety disorder, unspecified; F31.9 Bipolar disorder, unspecified; F17.200 Nicotine dependence, unspecified, uncomplicated; Z91.013 Allergy to seafood; Z88.0 Allergy status to penicillin; Z88.1 Allergy status to other antibiotic agents; Z88.6 Allergy status to analgesic agent; Z79.899 Other long term (current) drug therapy
CPT/HCPCS: 36415; 71045; 80048; 84484; 85025; 93005; 99285

== ENCOUNTER 2022-12-22 14:16 | Inpatient (IN) | payer MEDICARE, OTHER ==
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
[2022-12-22 15:21] LABS: Anisocytosis Slight; Basophils % (A) 0 %; Eosinophils # (A) 0.1 k/uL (0-0.7); Eosinophils % (A) 1 %; HCT 34.7 % (39.0-53.0); HGB 11.1 gm/dL (13.0-17.5); Lymphocytes # (A) 1.2 k/uL (1.0-4.8); Lymphocytes % (A) 13 %; MCH 30.5 pg (25.0-35.0); MCV 95.4 fL (80.0-100.0); Macrocytosis Slight; Monocytes # (A) 0.7 k/uL (0-1.0); Monocytes % (A) 8 %; Neutrophils # (A) 6.4 k/uL (1.3-7.7); Neutrophils % (A) 75 %; Platelet Count 248 k/uL (150-450); RBC 3.64 m/uL (4.30-5.90); RDW 18.1 % (11.5-15.5); WBC 8.6 k/uL (3.8-10.6)
[2022-12-22 15:23] LABS: ALT 169 U/L (4-49); AST 137 U/L (17-59); African American GFR (CKD) >90 (>60 ml/min/1.73 sqM); Albumin 4.2 g/dL (3.5-5.0); Alkaline Phosphatase 104 U/L (38-126); Anion Gap 10 mmol/L; Blood Urea Nitrogen 14 mg/dL (9-20); Calcium 9.1 mg/dL (8.4-10.2); Carbon Dioxide 24 mmol/L (22-30); Chloride 102 mmol/L (98-107); Glucose 137 mg/dL (74-99); Magnesium 1.7 mg/dL (1.6-2.3); Non-African American GFR(CKD) >90 (>60 ml/min/1.73 sqM); Sodium 136 mmol/L (137-145); Total Bilirubin 0.5 mg/dL (0.2-1.3); Total Protein 7.3 g/dL (6.3-8.2)
--- NOTE | 2022-12-22 15:57 | XR ---
EXAMINATION TYPE: XR chest 2V DATE OF EXAM: 12/22/2022 COMPARISON: 12/21/2022 and 07/11/2022 HISTORY: 57-year-old male with chest pain and confusion, altered mental status TECHNIQUE: PA and lateral views FINDINGS: The cardiomediastinal silhouette, aorta, and pulmonary vasculature are within normal limits. Hyperinf lation. No consolidation or pleural effusion seen. Mild anterior wedge deformity lower thoracic spine secondary to superior endplate deformity. Finding is new compared to 07/11/2022. IMPRESSION: 1. Superior endplate compression injury in the lower thoracic spine is new compared to 07/11/2022 but still age-indeterminate. Correlate for focal pain at this level. 2. COPD and chronic changes. No definite acute process.
[2022-12-22] MEDS ORDERED: LORazepam 1 MG TAB PO STA (16:34)
[2022-12-22] MEDS ORDERED: LORazepam 2 MG/ML INJ IV STA (18:51)
[2022-12-22] MEDS ORDERED: SODIUM CHLORIDE 0.9% 1,000 ML IV STA (18:51)
[2022-12-22] MEDS ORDERED: SODIUM CHLORIDE 0.9% 500 ML 500 ML IV STA (18:51)
[2022-12-22] MEDS ORDERED: SODIUM CHLORIDE 0.9% 1,000 ML IV SCH (19:00)
[2022-12-22] MEDS ORDERED: THIAMINE 100 MG/ML 2 ML VIAL IM STA (19:40)
[2022-12-22] MEDS ORDERED: ONDANSETRON 4 MG/2 ML VIAL IVP PRN (19:40)
[2022-12-22] MEDS ORDERED: NALOXONE 0.4 MG/ML 1 ML VIAL IV PRN (19:40)
[2022-12-22] MEDS ORDERED: LORazepam 2 MG/ML INJ IV PRN ×2 (19:40)
[2022-12-22] MEDS: SODIUM CHLORIDE 0.9% 1,000 ML IV SCH (22:18)
[2022-12-22] MEDS: PANTOPRAZOLE 40 MG/10 ML VIAL IVP SCH (23:15)
[2022-12-22] MEDS: NICOTINE 14MG/24HR PATCH TRANSDERM SCH (23:15)
[2022-12-23] MEDS: SODIUM CHLORIDE 0.9% 1,000 ML IV SCH (04:42)
[2022-12-23] MEDS: MORPHINE SULFATE 4 MG/ML SYRINGE IV PRN ×5 (05:01→23:19)
[2022-12-23] MEDS: PANTOPRAZOLE 40 MG/10 ML VIAL IVP SCH (08:02)
[2022-12-23] MEDS: NICOTINE 14MG/24HR PATCH TRANSDERM SCH (08:02)
[2022-12-23] MEDS: THIAMINE 100 MG TAB PO SCH (08:03)
[2022-12-23 09:15] LABS: Basophils # (A) 0.05 X 10*3/uL (0.00-0.10); Basophils % (A) 0.9 %; Eosinophils # (A) 0.26 X 10*3/uL (0.04-0.35); Eosinophils % (A) 4.8 %; HCT 31.3 % (39.6-50.0); HGB 9.9 g/dL (13.0-17.0); Immature Grans, Automated 0.6 %; Lymphocytes % (A) 29.7 %; MCH 30.6 pg (27.0-32.0); MCHC 31.6 g/dL (32.0-37.0); MCV 96.6 fL (80.0-97.0); Mean Platelet Volume 10.3 fL (9.5-12.2); Monocytes # (A) 0.77 X 10*3/uL (0.20-1.00); Monocytes % (A) 14.3 %; NRBC Per 100 WBC 0 /100 WBCS (0.0-0.0); Neutrophils # (A) 2.68 X 10*3/uL (1.80-7.70); Neutrophils % (A) 49.7 %; Platelet Count 214 X 10*3/uL (140-440); RBC 3.24 X 10*6/uL (4.40-5.60); RDW 19.1 % (11.5-14.5); WBC 5.39 X 10*3/uL (4.50-10.00)
[2022-12-23 09:54] LABS: Magnesium 1.9 mg/dL (1.5-2.4)
[2022-12-23 10:01] LABS: African American GFR (CKD) 131.2 (60.0-200.0); Albumin 3.9 g/dL (3.8-4.9); Albumin/Globulin Ratio 1.77 (1.60-3.17); Anion Gap 12.8 mmol/L (10.00-18.00); BUN/Creat Ratio 23.5 Ratio (12.00-20.00); Blood Urea Nitrogen 14.1 mg/dL (9.0-27.0); Calcium 8.9 mg/dL (8.7-10.3); Carbon Dioxide 21.2 mmol/L (20.0-27.5); Globulin 2.2 g/dL (1.6-3.3); Non-African American GFR(CKD) 113.2 (60.0-200.0); Potassium 4.1 mmol/L (3.5-5.5); Total Bilirubin 0.4 mg/dL (0.30-1.20); Total Protein 6.1 g/dL (6.2-8.2)
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
--- NOTE | 2022-12-23 15:50 | CT ---
EXAMINATION TYPE: CT chest angio for PE DATE OF EXAM: 12/23/2022 COMPARISON: None HISTORY: chest pain CT DLP: 278.6 mGycm Automated exposure control for dose reduction was used. CONTRAST: CT Chest for pulmonary embolism performed with with IV Contrast, patient injected with 70cc mL of Iso dwayne 300. 3-D postprocessing was performed. FINDINGS: There are marked emphysematous changes with bronchiectasis and mild groundglass density in the lower lobes. There is no dense airspace consolidation. There is no suspicious lung mass. There is no pleural effusion or pneumothorax. There are no filling defects within the pulmonary arteries or branches to suggest pulmonary embolism. There is no mediastinal, hilar or axillary adenopathy. Limited scanning the upper abdomen reveals no gross abnormality. IMPRESSION: 1. No evidence of pulmonary embolism. 2. No acute cardiopulmonary disease. 3. Marked emphysematous changes and chronic changes as described above.
[2022-12-23] MEDS: PROPRANOLOL 20 MG TAB PO SCH (20:02)
[2022-12-23] MEDS: busPIRone HCl 5 MG TAB PO SCH (20:02)
[2022-12-24] MEDS: MORPHINE SULFATE 4 MG/ML SYRINGE IV PRN ×5 (03:11→21:46)
[2022-12-24] MEDS: LORazepam 2 MG/ML INJ IV PRN ×4 (06:47→20:21)
[2022-12-24] MEDS: NICOTINE 14MG/24HR PATCH TRANSDERM SCH (08:00)
[2022-12-24] MEDS: THIAMINE 100 MG TAB PO SCH (08:01)
[2022-12-24] MEDS: PROPRANOLOL 20 MG TAB PO SCH ×2 (08:01→20:22)
[2022-12-24] MEDS: busPIRone HCl 5 MG TAB PO SCH ×2 (08:01→20:22)
[2022-12-24] MEDS: PANTOPRAZOLE 40 MG/10 ML VIAL IVP SCH (08:01)
[2022-12-24] MEDS: SODIUM CHLORIDE 0.9% 1,000 ML IV SCH (11:34)
[2022-12-24] MEDS: hydrOXYzine HCL 25 MG TAB PO PRN (11:52)
--- NOTE | 2022-12-24 13:33 | P.PN ---
Subjective Progress Note Date: 12/24/22 patient is a 57-year-old gentleman who is being seen in the ER and on at least 4 occasions in the last 3 days for multiple complaints ranging from chest pain to not feeling well. Patient stated that he is currently having chest pains which is sharp in corrected, central in location, nonradiating. Denies any shortness of breath. Denies any nausea or vomiting. Denies any abdominal pain. Initial lab work in the ER showed white count of 5.39, hemoglobin 9.9, MCV 96.6, sodium 141, potassium 4.1, chloride 107, BUN 14.1 creatinine 0.6 Chest x-ray done showed no acute cardiac process, it did show some period end plate compression injury in the lower thoracic spine. Patient admitted to internal medicine service 12/24. Patient seen and examined. States he is still detoxing from his alcohol. Getting active per [facility] protocol. Vital signs stable REVIEW OF SYSTEMS: CONSTITUTIONAL: No fever, no malaise,. CARDIOVASCULAR: No chest pain, no palpitations, no syncope. PULMONARY: No shortness of breath, no cough, GASTROINTESTINAL: No diarrhea, no nausea, no vomiting, no abdominal pain. NEUROLOGICAL: No headaches, no weakness, PHYSICAL EXAMINATION: GENERAL: The patient is alert and oriented x3, not in any acute distress. Well developed, well nourished. HEENT: Pupils are round and equally reacting to light. EOMI. No scleral icterus. No conjunctival pallor. Normocephalic, atraumatic. No pharyngeal erythema. No thyromegaly. CARDIOVASCULAR: S1 and S2 present. No murmurs, rubs, or gallops. PULMONARY: Chest is clear to auscultation, no wheezing or crackles. ABDOMEN: Soft, nontender, nondistended, normoactive bowel sounds. No palpable organomegaly. MUSCULOSKELETAL: No joint swelling or deformity. EXTREMITIES: No cyanosis, clubbing, or pedal edema. NEUROLOGICAL: Gross neurological examination did not reveal any focal deficits. SKIN: No rashes. Assessment and plan Chest pain Alcohol abuse Anemia Elevated LFTs Plan Monitor vital signs Monitor CBC Monitor CMP Continue CIWA protocol Continue thiamine and folic acid Added Atarax results of CT chest, no evidence of any PE Objective - Vital Signs Vital signs: Vital Signs Temp 98.6 F 12/24/22 07:24 Pulse 81 12/24/22 07:24 Resp 17 12/24/22 07:24 BP 118/79 12/24/22 07:24 Pulse Ox 97 12/24/22 09:12 FiO2 Intake & Output 12/23/22 12/24/22 12/24/22 18:59 06:59 18:59 Intake Total 118 Balance 118 Intake: Oral 118 Other: Voiding Method Toilet Toilet Toilet Incontinent Incontinent Incontinent # Voids 2 3 - Labs CBC & Chem 7: 12/23/22 04:26 12/23/22 04:26
[2022-12-25] MEDS: LORazepam 2 MG/ML INJ IV PRN ×2 (01:00→08:25)
[2022-12-25] MEDS: MORPHINE SULFATE 4 MG/ML SYRINGE IV PRN ×2 (02:38→06:35)
[2022-12-25] MEDS: NICOTINE 14MG/24HR PATCH TRANSDERM SCH (08:23)
[2022-12-25] MEDS: busPIRone HCl 5 MG TAB PO SCH (08:23)
[2022-12-25] MEDS: PROPRANOLOL 20 MG TAB PO SCH (08:24)
[2022-12-25] MEDS: PANTOPRAZOLE 40 MG/10 ML VIAL IVP SCH (08:24)
[2022-12-25] MEDS: THIAMINE 100 MG TAB PO SCH (08:24)
[2022-12-25 08:55] VITALS: BP 127/86; PULSE 83; RESP 16; TEMP 97.9
[2022-12-25] MEDS: hydrOXYzine HCL 25 MG TAB PO PRN (11:14)
--- NOTE | 2022-12-25 12:12 | P.DS ---
Providers Date of admission: 12/22/22 19:40 Expected date of discharge: 12/25/22 Attending physician: Candy Guerrero Primary care physician: Stated None Hospital Course: Discharge diagnoses; Chest pain Alcohol abuse Anemia Elevated LFTs Hospital course; patient is a 57-year-old gentleman who is being seen in the ER and on at least 4 occasions in the last 3 days for multiple complaints ranging from chest pain to not feeling well. Patient stated that he is currently having chest pains which is sharp in corrected, central in location, nonradiating. Denies any shortness of breath. Denies any nausea or vomiting. Denies any abdominal pain. Initial lab work in the ER showed white count of 5.39, hemoglobin 9.9, MCV 96.6, sodium 141, potassium 4.1, chloride 107, BUN 14.1 creatinine 0.6 Chest x-ray done showed no acute cardiac process, it did show some period end plate compression injury in the lower thoracic spine. Patient admitted to internal medicine service 12/24. Patient seen and examined. States he is still detoxing from his alcohol. Getting active per CIWA protocol. Vital signs stable 12/25. Patient seen and examined. Patient is anxious, CIWA scores have been low. CT chest was negative for PE. Patient stable for discharge PHYSICAL EXAMINATION: GENERAL: The patient is alert and oriented x3, not in any acute distress. Well developed, well nourished. HEENT: Pupils are round and equally reacting to light. EOMI. No scleral icterus. No conjunctival pallor. Normocephalic, atraumatic. No pharyngeal erythema. No thyromegaly. CARDIOVASCULAR: S1 and S2 present. No murmurs, rubs, or gallops. PULMONARY: Chest is clear to auscultation, no wheezing or crackles. ABDOMEN: Soft, nontender, nondistended, normoactive bowel sounds. No palpable organomegaly. MUSCULOSKELETAL: No joint swelling or deformity. EXTREMITIES: No cyanosis, clubbing, or pedal edema. NEUROLOGICAL: Gross neurological examination did not reveal any focal deficits. SKIN: No rashes. Patient Condition at Discharge: Fair Plan - Discharge Summary New Discharge Prescriptions: New Thiamine [Vitamin B-1] 100 mg PO DAILY #30 tab Continue Propranolol [Inderal] 20 mg PO BID busPIRone HCL 15 mg PO BID Discharge Medication List Propranolol [Inderal] 20 mg PO BID 12/17/22 [History] busPIRone HCL 15 mg PO BID 12/17/22 [History] Thiamine [Vitamin B-1] 100 mg PO DAILY #30 tab 12/24/22 [Rx] Follow up Appointment(s)/Referral(s): None,Stated [Primary Care Provider] - 1-2 days Discharge/Stand Alone Forms: AA Meetings [place], [facility], Outpatient Counseling, In Substance Abuse Facilities, Personal Embalmer Apprentice Discharge Disposition: HOME SELF-CARE
--- NOTE | 2022-12-29 14:09 | CDI ---
Documentation Clarification Form Date: 12/29/2022 From: Senia Barragan Phone: [phone] Admit Date: 12/22/2022 7:40:00 PM Patient Name: Darryl Long Visit Number: [id number] Discharge Date: 12/25/2022 1:14:00 PM ATTENTION: The Clinical Documentation Specialists (CDI) and [facility] Coding Staff appreciate your assistance in clarifying documentation. Please respond to the clarification below the line at the bottom and electronically sign. The CDI & [facility] Coding staff will review the response and follow-up if needed. Please note: Queries are made part of the Legal Health Record. If you have any questions, please contact the author of this message via ITS. Dr. Ashvin Pantoja Your patient has the documented symptom of chest pain. Additional clarification regarding the etiology/cause of this symptom is requested. History/Risk factors: 57yo has a h/o ETOH abuse, schizophrenia, anxiety, ADHD, bipolar, smoker Clinical Indicators: Per H&P, pt describes the chest pain as sharp, central in location and nonradiating. Pt stated he hadnt drank in 2 days, ER noted dehydration and ETOH withdrawal delirium Labs: WBC 5.39, Hgb 939,Na 141, K 4.1, Cl 107, BUN 14.1, Creat 0.[address] 12/23: no evidence of PE, no acute cardiopulm disease Treatment: Atarax, Ativan, Morphine, Buspar, IV fluid, Thiamine Please provide additional clarification regarding the etiology/cause of the chest pain. [ ] Chest pain due to psychogenic chest pain [ ] Chest pain due to ETOH withdrawal [ ] Chest pain due to other condition, please specify [ x ] Unable to determine MTDD
--- NOTE | 2023-01-08 16:33 | CDI ---
Documentation Clarification Form Date: From: Senia Barragan Phone: [phone] Admit Date: 12/22/2022 7:40:00 PM Patient Name: Darryl Long Visit Number: [id number] Discharge Date: 12/25/2022 1:14:00 PM ATTENTION: The Clinical Documentation Specialists (CDI) and [facility] Coding Staff appreciate your assistance in clarifying documentation. Please respond to the clarification below the line at the bottom and electronically sign. The CDI & [facility] Coding staff will review the response and follow-up if needed. Please note: Queries are made part of the Legal Health Record. If you have any questions, please contact the author of this message via ITS. Dr. Ashvin Pantoja Your patient has the documented symptom of chest pain. Additional clarification regarding the etiology/cause of this symptom is requested. History/Risk factors: 57yo has a h/o ETOH abuse, schizophrenia, anxiety, ADHD, bipolar, smoker Clinical Indicators: Per H&P, pt describes the chest pain as sharp, central in location and nonradiating. Pt stated he hadnt drank in 2 days, ER noted dehydration and ETOH withdrawal delirium Labs: WBC 5.39, Hgb 939,Na 141, K 4.1, Cl 107, BUN 14.1, Creat 0.[address] 12/23: no evidence of PE, no acute cardiopulm disease Treatment: Atarax, Ativan, Morphine, Buspar, IV fluid, Thiamine Please provide additional clarification regarding the etiology/cause of the chest pain. [x ] Chest pain due to psychogenic chest pain [ ] Chest pain due to ETOH withdrawal [ ] Chest pain due to other condition, please specify [ ] Unable to determine MTDD
== END 2022-12-25 13:14 | disposition home or self-care (01) | DRG 313 ==
LOC: EC 14:16 → 4SSUR 19:40
PROVIDERS: ADMIT Hospitalist; ATTEND Hospitalist
DX: R07.89 Other chest pain (principal); F10.130 Alcohol abuse with withdrawal, uncomplicated; F45.41 Pain disorder exclusively related to psychological factors; F31.9 Bipolar disorder, unspecified; F20.9 Schizophrenia, unspecified; D64.9 Anemia, unspecified; F17.210 Nicotine dependence, cigarettes, uncomplicated; J44.9 Chronic obstructive pulmonary disease, unspecified; I10 Essential (primary) hypertension; F41.9 Anxiety disorder, unspecified; F90.9 Attention-deficit hyperactivity disorder, unspecified type; G62.9 Polyneuropathy, unspecified; R32 Unspecified urinary incontinence; K58.9 Irritable bowel syndrome, unspecified; M41.9 Scoliosis, unspecified; M54.50 Low back pain, unspecified; R79.89 Other specified abnormal findings of blood chemistry; Z79.899 Other long term (current) drug therapy; Z86.14 Personal history of Methicillin resistant Staphylococcus aureus infection; Z87.820 Personal history of traumatic brain injury; Z88.0 Allergy status to penicillin; Z91.013 Allergy to seafood; Z88.6 Allergy status to analgesic agent; Z91.018 Allergy to other foods
CPT/HCPCS: 36415; 71046; 71275; 80053; 82075; 83735; 84100; 84484; 85025; 85379; 93005; 94760; 96374; 99291

== ENCOUNTER 2022-12-26 04:47 | Emergency (ER) | payer MEDICARE, OTHER ==
[2022-12-26 05:05] VITALS: TEMP 98
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
[2022-12-26 06:38] VITALS: BP 138/88; PULSE 98; RESP 16
== END 2022-12-26 06:25 | disposition home or self-care (01) ==
LOC: EC 04:47
DX: R00.0 Tachycardia, unspecified (principal); I10 Essential (primary) hypertension; J44.9 Chronic obstructive pulmonary disease, unspecified; F41.9 Anxiety disorder, unspecified; F31.9 Bipolar disorder, unspecified; F17.200 Nicotine dependence, unspecified, uncomplicated; Z79.899 Other long term (current) drug therapy; Z88.0 Allergy status to penicillin; Z88.1 Allergy status to other antibiotic agents; Z88.6 Allergy status to analgesic agent; Z91.013 Allergy to seafood
CPT/HCPCS: 93005; 99285

== ENCOUNTER 2022-12-26 21:13 | Emergency (ER) | payer MEDICARE, OTHER ==
[2022-12-26 21:31] VITALS: BP 170/107; PULSE 114; RESP 24; TEMP 98.7
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
== END 2022-12-26 22:23 | disposition left against medical advice (07) ==
LOC: EC 21:13
DX: R07.89 Other chest pain (principal); I10 Essential (primary) hypertension; J44.9 Chronic obstructive pulmonary disease, unspecified; F31.9 Bipolar disorder, unspecified; F41.9 Anxiety disorder, unspecified; F17.200 Nicotine dependence, unspecified, uncomplicated; Z79.899 Other long term (current) drug therapy; Z88.0 Allergy status to penicillin; Z88.1 Allergy status to other antibiotic agents; Z88.6 Allergy status to analgesic agent; Z91.013 Allergy to seafood; Z53.29 Procedure and treatment not carried out because of patient's decision for other reasons
CPT/HCPCS: 93005; 99284

== ENCOUNTER 2022-12-27 02:08 | Emergency (ER) | payer MEDICARE, OTHER ==
[2022-12-27 02:15] VITALS: BP 179/109; PULSE 112; RESP 20; TEMP 98.5
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
== END 2022-12-27 03:24 | disposition left against medical advice (07) ==
LOC: EC 02:08
DX: R07.9 Chest pain, unspecified (principal); I10 Essential (primary) hypertension; J44.9 Chronic obstructive pulmonary disease, unspecified; F31.9 Bipolar disorder, unspecified; F41.9 Anxiety disorder, unspecified; F17.200 Nicotine dependence, unspecified, uncomplicated; Z79.899 Other long term (current) drug therapy; Z88.0 Allergy status to penicillin; Z88.1 Allergy status to other antibiotic agents; Z88.6 Allergy status to analgesic agent
CPT/HCPCS: 99284

== ENCOUNTER 2022-12-27 05:58 | Emergency (ER) | payer MEDICARE, OTHER ==
[2022-12-27 06:02] VITALS: BP 168/101; PULSE 101; RESP 18; TEMP 97.7
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
== END 2022-12-27 06:40 | disposition home or self-care (01) ==
LOC: EC 05:58
DX: R07.9 Chest pain, unspecified (principal); I10 Essential (primary) hypertension; J44.9 Chronic obstructive pulmonary disease, unspecified; F41.9 Anxiety disorder, unspecified; F31.9 Bipolar disorder, unspecified; F17.200 Nicotine dependence, unspecified, uncomplicated; Z88.0 Allergy status to penicillin; Z88.1 Allergy status to other antibiotic agents; Z88.6 Allergy status to analgesic agent; Z91.013 Allergy to seafood
CPT/HCPCS: 93005; 99285

== ENCOUNTER 2022-12-27 08:22 | Emergency (ER) | payer MEDICARE, OTHER ==
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
[2022-12-27 08:30] VITALS: RESP 16
[2022-12-27 08:57] LABS: Anisocytosis Slight; Basophils % (A) 0 %; Eosinophils # (A) 0.2 k/uL (0-0.7); Eosinophils % (A) 3 %; HCT 37.5 % (39.0-53.0); HGB 11.8 gm/dL (13.0-17.5); Lymphocytes # (A) 1.3 k/uL (1.0-4.8); Lymphocytes % (A) 16 %; MCHC 31.5 g/dL (31.0-37.0); MCV 98.6 fL (80.0-100.0); Macrocytosis Slight; Mean Platelet Volume 7.8; Monocytes # (A) 0.6 k/uL (0-1.0); Monocytes % (A) 8 %; Neutrophils # (A) 5.8 k/uL (1.3-7.7); Neutrophils % (A) 71 %; Platelet Count 374 k/uL (150-450); RDW 17.4 % (11.5-15.5); WBC 8.2 k/uL (3.8-10.6)
[2022-12-27] MEDS ORDERED: ACETAMINOPHEN TAB 500 MG TAB PO STA (09:03)
[2022-12-27] MEDS ORDERED: ASPIRIN 325 MG TAB PO STA (09:03)
[2022-12-27 09:07] LABS: INR 0.9 (<1.2); Partial Thromboplastin Time 23.3 sec (22.0-30.0); Prothrombin Time 10.1 sec (9.0-12.0)
--- NOTE | 2022-12-27 09:10 | XR ---
EXAMINATION TYPE: XR chest 2V DATE OF EXAM: 12/27/2022 8:56 AM COMPARISON: Chest radiographs from 523, CTA chest 12/23/2022 TECHNIQUE: XR chest 2V Frontal and lateral views of the chest. CLINICAL INDICATION:Male, 57 years old with history of Chest Pain; FINDINGS: Lungs/Pleura: There is flattening of the diaphragm with increased lucency of the lungs. No evidence o f pneumothorax, pleural effusion or focal consolidation. Pulmonary vascularity: Unremarkable. Heart/mediastinum: Cardiomediastinal silhouette is unremarkable. Musculoskeletal: No acute osseous pathology. Stable compression deformities involving the T5, T6, and T12 vertebral bodies. IMPRESSION: 1. No acute cardiopulmonary disease/process. 2. COPD changes. 3. Stable multilevel compression deformities of the thoracic spine.
[2022-12-27 09:20] LABS: ALT 90 U/L (4-49); African American GFR (CKD) >90 (>60 ml/min/1.73 sqM); Anion Gap 12 mmol/L; Blood Urea Nitrogen 16 mg/dL (9-20); Calcium 9.5 mg/dL (8.4-10.2); Carbon Dioxide 20 mmol/L (22-30); Chloride 102 mmol/L (98-107); Glucose 104 mg/dL (74-99); Non-African American GFR(CKD) >90 (>60 ml/min/1.73 sqM); Sodium 134 mmol/L (137-145); Total Bilirubin 1.2 mg/dL (0.2-1.3)
[2022-12-27 09:35] LABS: AST 69 U/L (17-59); Albumin 4.7 g/dL (3.5-5.0); Alkaline Phosphatase 84 U/L (38-126); Magnesium 1.8 mg/dL (1.6-2.3); Total Protein 8.2 g/dL (6.3-8.2)
[2022-12-27] MEDS ORDERED: KETOROLAC 15 MG/ML 1 ML VIAL IM STA (09:42)
[2022-12-27 09:54] VITALS: BP 124/78; PULSE 104; TEMP 98.9
== END 2022-12-27 09:54 | disposition home or self-care (01) ==
LOC: EC 08:22
DX: R07.89 Other chest pain (principal); M48.54XA Collapsed vertebra, not elsewhere classified, thoracic region, initial encounter for fracture; J44.9 Chronic obstructive pulmonary disease, unspecified; I10 Essential (primary) hypertension; F90.9 Attention-deficit hyperactivity disorder, unspecified type; F41.9 Anxiety disorder, unspecified; F31.9 Bipolar disorder, unspecified; F17.200 Nicotine dependence, unspecified, uncomplicated; Z79.899 Other long term (current) drug therapy; Z91.013 Allergy to seafood; Z88.0 Allergy status to penicillin; Z88.8 Allergy status to other drugs, medicaments and biological substances; Z88.6 Allergy status to analgesic agent; Z88.1 Allergy status to other antibiotic agents
CPT/HCPCS: 36415; 93005; 80053; 83735; 84484; 85025; 85610; 85730; 71046; 99285; 96372; J1885

== ENCOUNTER 2022-12-27 10:58 | Inpatient (IN) | payer MEDICARE, OTHER ==
[2022-12-27 11:44] LABS: Amphetamine Screen,Urine Not Detected (NotDetected); Cocaine Screen,Urine Not Detected (NotDetected); Opiate Screen,Urine Detected (NotDetected); Phencyclidine Screen,Urine Not Detected (NotDetected); Urn Cannabinoid Scrn Not Detected (NotDetected)
[2022-12-27 11:45] LABS: Benzodiazepines Screen,Urine Detected (NotDetected)
[2022-12-27 11:46] LABS: Barbiturate Screen,Urine Not Detected (NotDetected); Methadone Screen, Urine Not Detected (NotDetected); Oxycodone Screen, Urine Not Detected (NotDetected); Tricyclic Antidepressant,Urine Not Detected (NotDetected)
--- NOTE | 2022-12-27 12:31 | CT ---
EXAMINATION TYPE: CT brain wo con DATE OF EXAM: 12/27/2022 COMPARISON: 07/19/2022 INDICATION: AMS, confusion DLP: 1086.4 mGycm, Automated exposure control for dose reduction was used. CONTRAST: None CT of the brain is performed utilizing 3 mm thick sections through the posterior fossa and 3 mm thick sections through the remaining calvarium. Study is performed within 24 hours of arrival to the hosp ital. No abnormal hyperdensity is present to suggest an acute intracranial hemorrhage. No mass lesion is evident. No acute infarcts are evident. Ventricles and sulci are appropriate for the patient age. Small retention cyst or mucosal thickening is in the posterior right maxillary sinus. Mucosal thicken ing is within ethmoid air cell regions. Paranasal sinuses and mastoid air cells are otherwise clear. IMPRESSIONS: 1. No acute intracranial process. Follow-up MRI can be performed as clinically indicated. 2. There is some mucosal thickening within ethmoid air cell regions and right maxillary sinus. Correl ate for chronic sinusitis.
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
[2022-12-27] MEDS ORDERED: LORazepam 2 MG/ML INJ IV STA (13:18)
[2022-12-27] MEDS ORDERED: NICOTINE 21MG/24HR PATCH TRANSDERM STA (13:19)
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
[2022-12-27] MEDS ORDERED: THIAMINE 100 MG/ML 2 ML VIAL IM STA (13:55)
[2022-12-27] MEDS ORDERED: LORazepam 2 MG/ML INJ IV PRN ×2 (13:55)
[2022-12-27] MEDS ORDERED: NALOXONE 0.4 MG/ML 1 ML VIAL IV PRN (13:56)
[2022-12-27] MEDS: LORazepam 2 MG/ML INJ IV PRN ×2 (17:44→23:20)
[2022-12-27] MEDS ORDERED: PROPRANOLOL 20 MG TAB PO PRN (20:59)
[2022-12-27] MEDS: ACETAMINOPHEN TAB 325 MG TAB PO PRN (23:25)
[2022-12-28] MEDS: LORazepam 2 MG/ML INJ IV PRN ×2 (05:17→13:14)
[2022-12-28] MEDS: THIAMINE 100 MG TAB PO SCH (07:50)
[2022-12-28] MEDS: busPIRone HCl 5 MG TAB PO PRN (07:50)
[2022-12-28] MEDS: ACETAMINOPHEN TAB 325 MG TAB PO PRN ×2 (07:50→21:14)
[2022-12-28] MEDS: NICOTINE 21MG/24HR PATCH TRANSDERM SCH (09:23)
[2022-12-28 11:17] LABS: Anisocytosis Slight; Basophils % (A) 1 %; Eosinophils # (A) 0.2 k/uL (0-0.7); Eosinophils % (A) 4 %; HCT 35.1 % (39.0-53.0); Lymphocytes # (A) 1.5 k/uL (1.0-4.8); Lymphocytes % (A) 28 %; MCHC 31.5 g/dL (31.0-37.0); MCV 98.4 fL (80.0-100.0); Macrocytosis Slight; Mean Platelet Volume 7.8; Monocytes # (A) 0.6 k/uL (0-1.0); Monocytes % (A) 10 %; Neutrophils # (A) 2.9 k/uL (1.3-7.7); Neutrophils % (A) 52 %; Platelet Count 356 k/uL (150-450); RBC 3.56 m/uL (4.30-5.90); RDW 17.4 % (11.5-15.5); WBC 5.4 k/uL (3.8-10.6)
[2022-12-28 11:38] LABS: ALT 66 U/L (4-49); AST 36 U/L (17-59); African American GFR (CKD) >90 (>60 ml/min/1.73 sqM); Albumin 3.9 g/dL (3.5-5.0); Albumin/Globulin Ratio 1.3; Alkaline Phosphatase 85 U/L (38-126); Anion Gap 8 mmol/L; Blood Urea Nitrogen 14 mg/dL (9-20); Carbon Dioxide 22 mmol/L (22-30); Chloride 105 mmol/L (98-107); Globulin 2.9 g/dL; Glucose 95 mg/dL (74-99); Non-African American GFR(CKD) >90 (>60 ml/min/1.73 sqM); Potassium 4.5 mmol/L (3.5-5.1); Sodium 135 mmol/L (137-145); Total Bilirubin 0.4 mg/dL (0.2-1.3); Total Protein 6.8 g/dL (6.3-8.2)
[2022-12-28 11:57] VITALS: BMI 23.3
[2022-12-28] MEDS ORDERED: HYDROcodone/APAP 5-325MG 1 EACH TAB PO STA (13:06)
[2022-12-28] MEDS ORDERED: LORazepam 1 MG TAB PO PRN (14:42)
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
[2022-12-28] MEDS ORDERED: NALTREXONE HCL 50 MG TAB PO SCH (15:15)
[2022-12-28] MEDS: LORazepam 1 MG TAB PO PRN ×2 (16:10→21:23)
[2022-12-28] MEDS: HEPARIN SODIUM,PORCINE/PF 5,000 UNIT/0.5 ML SYRINGE SQ SCH ×2 (17:34→23:55)
[2022-12-28] MEDS: diphenhydrAMINE 25 MG CAP PO SCH (21:15)
[2022-12-29] MEDS: LORazepam 1 MG TAB PO PRN ×4 (04:17→22:17)
[2022-12-29] MEDS: ACETAMINOPHEN TAB 325 MG TAB PO PRN ×4 (04:17→22:17)
[2022-12-29] MEDS: NICOTINE 21MG/24HR PATCH TRANSDERM SCH (08:43)
[2022-12-29] MEDS: THIAMINE 100 MG TAB PO SCH (08:43)
[2022-12-29] MEDS: HEPARIN SODIUM,PORCINE/PF 5,000 UNIT/0.5 ML SYRINGE SQ SCH ×3 (08:44→23:10)
[2022-12-29] MEDS: busPIRone HCl 5 MG TAB PO PRN (09:06)
--- NOTE | 2022-12-29 09:45 | P.PN ---
Subjective Progress Note Date: 12/28/22 History of present illness; patient is a 57-year-old gentleman with past medical history significant for alcohol abuse who presented to the ER for confusion.Patient has been seen 6 times in the last 24 hours in the ER for multiple complaints. Patient has been worked up for chest pain with multiple EKGs and serial troponins, all have been inconclusive. Patient has been drinking alcohol. Denies any auditory or visual hallucinations. Denied any thoughts of hurting himself. Lab work done showed WBC 8.2, hemoglobin 11.8, platelet count 374, sodium 134, potassium 5, BUN 16, creatinine 0.49 Urine drug screen positive for opioids and benzodiazepine patient was admitted for psych evaluation and possible placement 12/28/2022 Patient is sitting in a chair. Awake alert and oriented. Complains of shoulder pain mainly left side and requesting IV pain medications. Otherwise continued on alcohol withdrawal protocol. Patient was seen by psychiatry and patient does not meet inpatient psychiatric admission at this time. Denies any complaints of chest pain or shortness of breath. No nausea vomiting abdominal pain or diarrhea. No cough or sputum production. Laboratory data showed WBC 5.4 hemoglobin 11.7 platelets 356. Sodium 135 potassium 4.5 BUN 14 and creatinine 0.46. Anticipate discharge in the next 24 hours. Current medications reviewed. REVIEW OF SYSTEMS: CONSTITUTIONAL: No fever, no malaise, no fatigue. HEENT: No recent visual problems or hearing problems. Denied any sore throat. CARDIOVASCULAR: No chest pain, orthopnea, PND, no palpitations, no syncope. PULMONARY: No shortness of breath, no cough, no hemoptysis. GASTROINTESTINAL: No diarrhea, no nausea, no vomiting, no abdominal pain. NEUROLOGICAL: No headaches, no weakness, no numbness. HEMATOLOGICAL: Denies any bleeding or petechiae. GENITOURINARY: Denies any burning micturition, frequency, or urgency. MUSCULOSKELETAL/RHEUMATOLOGICAL: Denies any joint pain, swelling, or any muscle pain. ENDOCRINE: Denies any polyuria or polydipsia. The rest of the 14-point review of systems is negative. PHYSICAL EXAMINATION: GENERAL: The patient is alert and oriented x3, not in any acute distress. Well developed, well nourished. HEENT: Pupils are round and equally reacting to light. EOMI. No scleral icterus. No conjunctival pallor. Normocephalic, atraumatic. No pharyngeal erythema. No thyromegaly. CARDIOVASCULAR: S1 and S2 present. No murmurs, rubs, or gallops. PULMONARY: Chest is clear to auscultation, no wheezing or crackles. ABDOMEN: Soft, nontender, nondistended, normoactive bowel sounds. No palpable organomegaly. MUSCULOSKELETAL: No joint swelling or deformity. EXTREMITIES: No cyanosis, clubbing, or pedal edema. NEUROLOGICAL: Gross neurological examination did not reveal any focal deficits. SKIN: No rashes. Assessment and plan Acute alcohol withdrawal symptoms Alcohol dependence/alcohol abuse disorder DTs Normocytic Anemia Elevated LFTs. improving Plan; Monitor vital signs Monitor CBC Monitor CMP Continue CIWA protocol Continue thiamine and folic acid Resume home meds Pain management with Tylenol and ibuprofen. [place] 5 x1 was given. Patient was seen by psychiatry. Does not meet inpatient psychiatric admission criteria at this time. Social work consult for outpatient rehab follow-up. Objective - Vital Signs Vital signs: Vital Signs Temp 98.9 F 12/28/22 13:15 Pulse 88 12/28/22 13:15 Resp 19 12/28/22 13:15 BP 122/77 12/28/22 13:15 Pulse Ox 98 12/28/22 13:15 FiO2 Intake & Output 12/28/22 12/28/22 12/29/22 06:59 18:59 06:59 Intake Total 354 Balance 354 Weight 65.771 kg Intake: Oral 354 Other: Voiding Method Toilet # Voids 3 4 - Labs CBC & Chem 7: 12/28/22 10:42 12/28/22 10:42 Labs: Abnormal Lab Results - Last 24 Hours (Table) 12/28/22 12/28/22 Range/Units 10:42 10:42 RBC 3.56 L (4.30-5.90) m/uL Hgb 11.0 L (13.0-17.5) gm/dL Hct 35.1 L (39.0-53.0) % RDW 17.4 H (11.5-15.5) % Sodium 135 L (137-145) mmol/L Creatinine 0.46 L (0.66-1.25) mg/dL ALT 66 H (4-49) U/L
--- NOTE | 2022-12-29 15:59 | P.PN ---
Subjective Progress Note Date: 12/29/22 57-year-old gentleman with past medical history significant for alcohol abuse who presented to the ER for confusion.Patient has been seen 6 times in the last 24 hours in the ER for multiple complaints. Patient has been worked up for chest pain with multiple EKGs and serial troponins, all have been inconclusive. Patient has been drinking alcohol. Denies any auditory or visual hallucinations. Denied any thoughts of hurting himself. Lab work done showed WBC 8.2, hemoglobin 11.8, platelet count 374, sodium 134, potassium 5, BUN 16, creatinine 0.49 Urine drug screen positive for opioids and benzodiazepine patient was admitted for psych evaluation and possible placement Objective - Vital Signs Vital signs: Vital Signs Temp 98.7 F 12/29/22 07:15 Pulse 75 12/29/22 07:15 Resp 18 12/29/22 08:43 BP 135/82 12/29/22 07:15 Pulse Ox 97 12/29/22 07:15 FiO2 Intake & Output 12/28/22 12/29/22 12/29/22 18:59 06:59 18:59 Intake Total 354 480 Balance 354 480 Weight 65.771 kg Intake: Oral 354 480 Other: Voiding Method Toilet Toilet Toilet # Voids 4 3 - Exam GENERAL: The patient is alert and oriented x3, not in any acute distress. Well developed, well nourished. HEENT: Pupils are round and equally reacting to light. EOMI. No scleral icterus. No conjunctival pallor. Normocephalic, atraumatic. No pharyngeal erythema. No thyromegaly. CARDIOVASCULAR: S1 and S2 present. No murmurs, rubs, or gallops. PULMONARY: Chest is clear to auscultation, no wheezing or crackles. ABDOMEN: Soft, nontender, nondistended, normoactive bowel sounds. No palpable organomegaly. MUSCULOSKELETAL: No joint swelling or deformity. EXTREMITIES: No cyanosis, clubbing, or pedal edema. NEUROLOGICAL: Gross neurological examination did not reveal any focal deficits. SKIN: No rashes. - Labs CBC & Chem 7: 12/28/22 10:42 12/28/22 10:42 Assessment and Plan Assessment: Acute alcohol withdrawal symptoms Alcohol dependence/alcohol abuse disorder DTs Normocytic Anemia Elevated LFTs. improving Plan; Monitor vital signs Monitor CBC Monitor CMP Continue CIWA protocol Continue thiamine and folic acid Resume home meds Pain management with Tylenol and ibuprofen. [place] 5 x1 was given. Patient was seen by psychiatry. Does not meet inpatient psychiatric admission criteria at this time. Social work consult for outpatient rehab follow-up.
[2022-12-29] MEDS: diphenhydrAMINE 25 MG CAP PO SCH (21:03)
[2022-12-30] MEDS: ACETAMINOPHEN TAB 325 MG TAB PO PRN ×2 (03:17→12:15)
[2022-12-30] MEDS: LORazepam 1 MG TAB PO PRN (03:17)
[2022-12-30 08:09] VITALS: BP 125/77; PULSE 77; RESP 19; TEMP 98
[2022-12-30] MEDS: NICOTINE 21MG/24HR PATCH TRANSDERM SCH (08:19)
[2022-12-30] MEDS: THIAMINE 100 MG TAB PO SCH (08:19)
[2022-12-30] MEDS: HEPARIN SODIUM,PORCINE/PF 5,000 UNIT/0.5 ML SYRINGE SQ SCH (08:22)
[2022-12-30] MEDS: busPIRone HCl 5 MG TAB PO PRN (12:15)
[2022-12-31] MEDS ORDERED: NALTREXONE HCL 50 MG TAB PO SCH (15:00)
--- NOTE | 2023-01-02 14:54 | CDI ---
Documentation Clarification Form Date: 01/02/2023 2:38:44 PM From: Glory Joseph Admit Date: 12/27/2022 1:57:00 PM Patient Name: Darryl Long Visit Number: [id number] Discharge Date: 12/30/2022 2:05:00 PM ATTENTION: The Clinical Documentation Specialists (CDI) and [facility] Coding Staff appreciate your assistance in clarifying documentation. Please respond to the clarification below the line at the bottom and electronically sign. The CDI & [facility] Coding staff will review the response and follow-up if needed. Please note: Queries are made part of the Legal Health Record. If you have any questions, please contact the author of this message via ITS. Dr. Ashvin Pantoja Your patient has the documented symptom of Altered Mental Status with withdrawal delirium. Additional clarification regarding the etiology/cause of this symptom is requested. History/Risk Factors: patient is a 57 year old male, with a hx of Percocet and Xanax abuse, as well as heroin, ecstasy, methamphetamines, and benzodiazepine abuse. Hx of alcohol abuse/dependence and mental illness. He has ADHD, anxiety, bipolar, depression, schizophrenia. Clinical Indicators: patient presented with altered mental status/confusion, and chest pain. Patient presented to the ED 6 times on the day of admit. Per progress note 12/28/22- patient drinks approx. 12 pack of beer and a pint per day. Experiencing alcohol withdrawal with delirium tremens. Labs: urine opiates- detected, benzodiazepines- detected, sodium- 135, ALT- 66 Treatment: psychiatric evaluation, monitor vitals, CBC, CMP, CIWA protocol, thiamine, and folic acid Please clarify the etiology of the symptom of Altered Mental Status: [ ] Metabolic Encephalopathy due to Alcohol Withdrawal and DTs [ x] Toxic Encephalopathy due to Alcohol Withdrawal and DTs [ ] Delirium (specify cause): [ ] Altered Mental status not clinically significant [ ] Other condition (please specify) [ ] Unable to determine MTDD
--- NOTE | 2023-01-07 18:48 | P.DS ---
Providers Date of admission: 12/27/22 13:57 Expected date of discharge: 12/30/22 Attending physician: Candy Guerrero Consults: 12/27/22 19:00 Consult Physician Routine Consulting Provider: Ermias Aguilar Consult Reason/Comments: anxiety, depression Do you want consulting provider notified?: Yes Primary care physician: Stated None Hospital Course: Gs and serial troponins, all have been inconclusive. Patient has been drinking alcohol. Denies any auditory or visual hallucinations. Denied any thoughts of hurting himself. Lab work done showed WBC 8.2, hemoglobin 11.8, platelet count 374, sodium 134, potassium 5, BUN 16, creatinine 0.49 Urine drug screen positive for opioids and benzodiazepine patient was admitted for psych evaluation and possible placement Acute alcohol withdrawal symptoms Alcohol dependence/alcohol abuse disorder DTs Normocytic Anemia Elevated LFTs. improving Plan; Monitor vital signs Monitor CBC Monitor CMP Continue CIWA protocol Continue thiamine and folic acid Resume home meds Pain management with Tylenol and ibuprofen. [place] 5 x1 was given. Patient was seen by psychiatry. Does not meet inpatient psychiatric admission criteria at this time. Social work consult for outpatient rehab follow-up. Patient Condition at Discharge: Stable Plan - Discharge Summary Discharge Rx Participant: Yes New Discharge Prescriptions: New Naltrexone HCl [Revia] 50 mg PO DAILY 7 Days #7 tab Continue Propranolol [Inderal] 20 mg PO BID PRN PRN Reason: Anxiety busPIRone HCL 15 mg PO BID PRN PRN Reason: Anxiety No Action LORazepam [Ativan] 1 mg PO TID 3 Days #9 tab Discharge Medication List Propranolol [Inderal] 20 mg PO BID PRN 12/17/22 [History] busPIRone HCL 15 mg PO BID PRN 12/17/22 [History] Naltrexone HCl [Revia] 50 mg PO DAILY 7 Days #7 tab 12/30/22 [Rx] LORazepam [Ativan] 1 mg PO TID 3 Days #9 tab 01/02/23 [Rx] Follow up Appointment(s)/Referral(s): None,Stated [Primary Care Provider] - 1-2 days Discharge Disposition: HOME SELF-CARE
== END 2022-12-30 14:05 | disposition home or self-care (01) | DRG 896 ==
LOC: EC 10:58 → 5NMEDONC 13:57 → 4SSUR 14:16
PROVIDERS: ADMIT Hospitalist; ATTEND Hospitalist
DX: F10.231 Alcohol dependence with withdrawal delirium (principal); G92.8 Other toxic encephalopathy; F11.10 Opioid abuse, uncomplicated; F19.10 Other psychoactive substance abuse, uncomplicated; F13.10 Sedative, hypnotic or anxiolytic abuse, uncomplicated; F41.9 Anxiety disorder, unspecified; Z79.899 Other long term (current) drug therapy; J44.9 Chronic obstructive pulmonary disease, unspecified; I10 Essential (primary) hypertension; M41.9 Scoliosis, unspecified; K58.9 Irritable bowel syndrome, unspecified; G40.909 Epilepsy, unspecified, not intractable, without status epilepticus; F90.9 Attention-deficit hyperactivity disorder, unspecified type; F60.89 Other specific personality disorders; F31.9 Bipolar disorder, unspecified; F20.9 Schizophrenia, unspecified; F17.210 Nicotine dependence, cigarettes, uncomplicated; R74.01 Elevation of levels of liver transaminase levels; D64.9 Anemia, unspecified; M25.512 Pain in left shoulder; M54.50 Low back pain, unspecified; K40.90 Unilateral inguinal hernia, without obstruction or gangrene, not specified as recurrent; G62.9 Polyneuropathy, unspecified; Z86.14 Personal history of Methicillin resistant Staphylococcus aureus infection; T79.A0XD Compartment syndrome, unspecified, subsequent encounter; V29.99XD Rider (driver) (passenger) of other motorcycle injured in unspecified traffic accident, subsequent encounter; Z88.1 Allergy status to other antibiotic agents; Z88.6 Allergy status to analgesic agent; Z56.0 Unemployment, unspecified
CPT/HCPCS: 70450; 80053; 80306; 85025; 96372; 96374; 99285

== ENCOUNTER 2022-12-30 16:36 | Emergency (ER) | payer MEDICARE, OTHER ==
[2022-12-30 17:00] VITALS: BP 98/67; PULSE 88; RESP 20; TEMP 98.1
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
== END 2022-12-30 18:05 | disposition home or self-care (01) ==
LOC: EC 16:36
DX: F10.129 Alcohol abuse with intoxication, unspecified (principal); F32.A Depression, unspecified; F41.9 Anxiety disorder, unspecified; I10 Essential (primary) hypertension; J44.9 Chronic obstructive pulmonary disease, unspecified; F17.210 Nicotine dependence, cigarettes, uncomplicated; Z79.899 Other long term (current) drug therapy; Z88.0 Allergy status to penicillin; Z88.1 Allergy status to other antibiotic agents; Z88.6 Allergy status to analgesic agent; Z91.013 Allergy to seafood
CPT/HCPCS: 82075; 99284

== ENCOUNTER 2023-01-01 10:31 | Emergency (ER) | payer MEDICARE, OTHER ==
[2023-01-01 10:41] VITALS: RESP 18
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
[2023-01-01] MEDS ORDERED: ONDANSETRON ODT 4 MG TAB PO STA (13:24)
[2023-01-01 14:20] VITALS: BP 116/96; PULSE 104; TEMP 98
== END 2023-01-01 14:19 | disposition home or self-care (01) ==
LOC: EC 10:31
DX: F10.929 Alcohol use, unspecified with intoxication, unspecified (principal); J44.9 Chronic obstructive pulmonary disease, unspecified; I10 Essential (primary) hypertension; F31.9 Bipolar disorder, unspecified; F41.9 Anxiety disorder, unspecified; F17.200 Nicotine dependence, unspecified, uncomplicated; Z91.013 Allergy to seafood; Z88.0 Allergy status to penicillin; Z88.6 Allergy status to analgesic agent; Z88.8 Allergy status to other drugs, medicaments and biological substances; Z79.899 Other long term (current) drug therapy
CPT/HCPCS: 99284

== ENCOUNTER 2023-01-01 16:51 | Emergency (ER) | payer MEDICARE, OTHER ==
[2023-01-01 17:03] VITALS: TEMP 98.6
[2023-01-01] MEDS ORDERED: HALOPERIDOL LACTATE 5 MG/ML 1 ML VIAL IM STA (17:35)
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
[2023-01-01 19:30] LABS: Amphetamine Screen,Urine Not Detected (NotDetected); Barbiturate Screen,Urine Not Detected (NotDetected); Benzodiazepines Screen,Urine Detected (NotDetected); Cocaine Screen,Urine Not Detected (NotDetected); Methadone Screen, Urine Not Detected (NotDetected); Opiate Screen,Urine Not Detected (NotDetected); Oxycodone Screen, Urine Not Detected (NotDetected); Phencyclidine Screen,Urine Not Detected (NotDetected); Tricyclic Antidepressant,Urine Not Detected (NotDetected); Urn Cannabinoid Scrn Not Detected (NotDetected)
[2023-01-01 23:09] VITALS: BP 136/73; PULSE 76; RESP 18
== END 2023-01-02 00:55 | disposition home or self-care (01) ==
LOC: EC 16:51
DX: F10.129 Alcohol abuse with intoxication, unspecified (principal); J44.9 Chronic obstructive pulmonary disease, unspecified; I10 Essential (primary) hypertension; F31.9 Bipolar disorder, unspecified; F41.9 Anxiety disorder, unspecified; F17.200 Nicotine dependence, unspecified, uncomplicated; Z88.1 Allergy status to other antibiotic agents; Z88.6 Allergy status to analgesic agent; Z88.0 Allergy status to penicillin; Z91.013 Allergy to seafood; Z79.899 Other long term (current) drug therapy
CPT/HCPCS: 82075; 80306; 99284; 96372; J1630

== ENCOUNTER 2023-01-02 12:15 | Emergency (ER) | payer MEDICARE, OTHER ==
[2023-01-02 12:22] VITALS: BP 150/98; PULSE 112; RESP 24; TEMP 98.5
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
== END 2023-01-02 13:07 | disposition home or self-care (01) ==
LOC: EC 12:15
DX: F10.929 Alcohol use, unspecified with intoxication, unspecified (principal); I10 Essential (primary) hypertension; J44.9 Chronic obstructive pulmonary disease, unspecified; F41.9 Anxiety disorder, unspecified; F31.9 Bipolar disorder, unspecified; F17.200 Nicotine dependence, unspecified, uncomplicated; Z79.899 Other long term (current) drug therapy; Z88.8 Allergy status to other drugs, medicaments and biological substances; Z91.013 Allergy to seafood
CPT/HCPCS: 82075; 99285

== ENCOUNTER 2023-01-02 15:18 | Emergency (ER) | payer MEDICARE, OTHER ==
[2023-01-02 15:29] VITALS: TEMP 98.9
[2023-01-02] MEDS ORDERED: LORazepam 2 MG/ML INJ IV STA (15:39)
[2023-01-02] MEDS ORDERED: chlordiazePOXIDE 25 MG CAP PO STA (15:39)
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
[2023-01-02 18:20] VITALS: BP 140/98; PULSE 100; RESP 20
== END 2023-01-02 18:20 | disposition home or self-care (01) ==
LOC: EC 15:18
DX: F10.939 Alcohol use, unspecified with withdrawal, unspecified (principal); J44.9 Chronic obstructive pulmonary disease, unspecified; I10 Essential (primary) hypertension; F41.9 Anxiety disorder, unspecified; F31.9 Bipolar disorder, unspecified; F17.200 Nicotine dependence, unspecified, uncomplicated; Z88.0 Allergy status to penicillin; Z88.1 Allergy status to other antibiotic agents; Z88.6 Allergy status to analgesic agent; Z91.013 Allergy to seafood; Z79.899 Other long term (current) drug therapy
CPT/HCPCS: 82075; 99284; 96374; J2060

== ENCOUNTER 2023-01-09 19:57 | Emergency (ER) | payer MEDICARE, OTHER ==
[2023-01-09 20:02] VITALS: BP 111/68; PULSE 81; RESP 18; TEMP 98.6
[2023-01-09] MEDS ORDERED: HALOPERIDOL LACTATE 5 MG/ML 1 ML VIAL IM STA ×2 (20:49→20:52)
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
== END 2023-01-10 02:07 | disposition home or self-care (01) ==
LOC: EC 19:57
DX: F10.129 Alcohol abuse with intoxication, unspecified (principal); I10 Essential (primary) hypertension; J44.9 Chronic obstructive pulmonary disease, unspecified; F31.9 Bipolar disorder, unspecified; F20.9 Schizophrenia, unspecified; F41.9 Anxiety disorder, unspecified; F17.200 Nicotine dependence, unspecified, uncomplicated; Z79.899 Other long term (current) drug therapy; Z88.0 Allergy status to penicillin; Z88.1 Allergy status to other antibiotic agents; Z88.6 Allergy status to analgesic agent; Z91.013 Allergy to seafood
CPT/HCPCS: 82075; 99284; 96372; J1630

== ENCOUNTER 2023-01-10 11:51 | Observation (INO) | payer MEDICARE, OTHER ==
[2023-01-10] MEDS ORDERED: SODIUM CHLORIDE 0.9% 1,000 ML IV ONE (12:07)
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
[2023-01-10 13:32] LABS: Anisocytosis Slight; Basophils # (A) 0.1 k/uL (0-0.2); Basophils % (A) 1 %; Eosinophils # (A) 0.1 k/uL (0-0.7); Eosinophils % (A) 2 %; HCT 43.5 % (39.0-53.0); Lymphocytes # (A) 2.4 k/uL (1.0-4.8); Lymphocytes % (A) 29 %; MCH 31.1 pg (25.0-35.0); MCHC 32.6 g/dL (31.0-37.0); MCV 95.5 fL (80.0-100.0); Mean Platelet Volume 7.2; Monocytes # (A) 0.4 k/uL (0-1.0); Monocytes % (A) 4 %; Neutrophils # (A) 5.1 k/uL (1.3-7.7); Neutrophils % (A) 62 %; Platelet Count 528 k/uL (150-450); RBC 4.55 m/uL (4.30-5.90); RDW 17.1 % (11.5-15.5); WBC 8.3 k/uL (3.8-10.6)
[2023-01-10 13:35] LABS: ALT 57 U/L (4-49); AST 51 U/L (17-59); African American GFR (CKD) >90 (>60 ml/min/1.73 sqM); Albumin 4.9 g/dL (3.5-5.0); Alkaline Phosphatase 120 U/L (38-126); Anion Gap 17 mmol/L; Blood Urea Nitrogen 15 mg/dL (9-20); Calcium 9.3 mg/dL (8.4-10.2); Carbon Dioxide 22 mmol/L (22-30); Chloride 102 mmol/L (98-107); Glucose 74 mg/dL (74-99); HGB 14.2 gm/dL (13.0-17.5); Magnesium 2.1 mg/dL (1.6-2.3); Non-African American GFR(CKD) >90 (>60 ml/min/1.73 sqM); Potassium 4.6 mmol/L (3.5-5.1); Sodium 141 mmol/L (137-145); Total Bilirubin 0.4 mg/dL (0.2-1.3); Total Protein 8.4 g/dL (6.3-8.2)
[2023-01-10 13:41] LABS: Alcohol 291 mg/dL
[2023-01-10] MEDS ORDERED: NALOXONE 0.4 MG/ML 1 ML VIAL IV PRN (14:31)
[2023-01-10] MEDS ORDERED: LORazepam 1 MG TAB PO PRN ×2 (14:31)
[2023-01-10] MEDS ORDERED: LORazepam 2 MG/ML INJ IV PRN (14:31)
[2023-01-10] MEDS ORDERED: LORazepam 0.5 MG TAB PO PRN (14:31)
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
[2023-01-10] MEDS ORDERED: NICOTINE 21MG/24HR PATCH TRANSDERM SCH (15:15)
[2023-01-10] MEDS: SODIUM CHLORIDE 0.9% 1,000 ML IV SCH (16:21)
[2023-01-10] MEDS: LORazepam 1 MG TAB PO PRN ×3 (16:26→23:03)
[2023-01-10] MEDS: ACETAMINOPHEN TAB 325 MG TAB PO PRN (19:49)
[2023-01-11 02:22] VITALS: RESP 18
[2023-01-11] MEDS: SODIUM CHLORIDE 0.9% 1,000 ML IV SCH (03:43)
[2023-01-11] MEDS: LORazepam 1 MG TAB PO PRN ×2 (04:15→07:50)
[2023-01-11] MEDS: ACETAMINOPHEN TAB 325 MG TAB PO PRN (06:50)
[2023-01-11 07:49] VITALS: BP 137/81; PULSE 86; TEMP 98
--- NOTE | 2023-01-11 08:08 | P.DS ---
Providers Date of admission: 01/10/23 14:54 Expected date of discharge: 01/11/23 Attending physician: Paco Elias MD Primary care physician: Stated None Hospital Course: Discharge Diagnosis: Alcohol intoxication pending alcohol withdrawal with Delirium tremens in long- standing alcoholic. Dehydration secondary to alcohol abuse History of DVTs. Pt is No longer on anticoagulation secondary to high risks with chronic alcohol abuse Nicotine dependence. Educated and encouraged patient on the benefits of smoking cessation and the risks of continued use. Severe protein malnourishment. Recommend alcohol cessation and use of Protein supplements 3 times daily between meals. Hospital Course: Patient is a very pleasant 57-year-old male with a past medical history of chronic pain, alcohol abuse, anxiety, COPD, DVTs no longer on anticoagulation due to alcoholism, neuropathy, chronic pain, bipolar disorder, paranoid schizophrenia, and nicotine dependence. He is very well known to our services secondary to multiple previous admissions resulting from alcohol abuse/intoxication. He presented to the emergency department today via EMS accompanied by police for alcohol intoxication. Patient currently denies having any complaints at this time. Patient is specifically denies having any headache, lightheadedness, dizziness, chest pain, palpitations, shortness of breath, or experiencing any numbness/tingling/weakness in his extremities. Patient does have scabbed over laceration in healing stages just below left eyebrow with some surrounding old yellowish colored bruising. Per ED provider [facility] reportedly called EMS and PD for transportation to the hospital secondary to severe alcohol intoxication. Patient underwent full evaluation in the emergency department. Labs completed and reviewed. CBC revealing thrombocytosis with platelet count of 528. BMP unremarkable. Liver profile revealing elevated ALT of 57. Serum alcohol level 291. Discussed patient's presenting complaints, physical exam findings, and laboratory analysis in detail with the ED provider. Patient being admitted under our services to medical observation unit. Patient was monitored overnight and placed on CIWA protocol with symptom triggered medication management with benzodiazepines for withdrawal. Patient was subpoenaed to appear in court today at 8:45 AM. Patient is medically stable at this time and clinically sober. Hospital provided patient with Voucher to [facility] and patient discharged at this time. Physical exam: Vital signs reviewed and stable. General: Nontoxic, no distress and appears older than stated age. Thin, emaciated malnourished appearance. Derm: Skin warm and dry, normal coloration for ethnicity. Head: Atraumatic, normocephalic and symmetric. Patient does have a scabbed over laceration in healing stages just below left eyebrow with some surrounding old yellowish colored bruising. Eyes: EOMs intact, no lid lag, and anicteric sclera Mouth: no lip lesions, mucus membranes moist. Missing teeth. Cardiovascular: regular rate and rhythm with normal S1S2, no murmur, positive posterior tibial pulses bilaterally, and cap refill < 2 seconds. Lungs: Respirations even, regular, and unlabored on room air. Lungs CTA bilaterally, no rhonchi, no rales, no wheezing, and no accessory muscle usage. Abdominal: soft, nontender to palpation, no guarding, no appreciable organomegaly Ext: ROM intact. No gross muscle atrophy, no edema, no contractures Neuro: Speech clear, face symmetrical and CN II-XII grossly intact with no noted focal neuro deficits Psych: Alert and oriented to person, place, time, and situation. Appropriate and pleasant affect. A total of 31 minutes of time were spent preparing this complex discharge summary. Pt was discharged on 01/11/23 at 8:06 AM Patient was seen independently by Nurse Practitioner. This document was prepared using [employer] dictation software. Please allow for errors in railcar switcher while rare they do occur. Patient Condition at Discharge: Stable Plan - Discharge Summary Discharge Rx Participant: No New Discharge Prescriptions: Continue Propranolol [Inderal] 20 mg PO BID PRN PRN Reason: Anxiety busPIRone HCL 15 mg PO BID PRN PRN Reason: Anxiety Discharge Medication List Propranolol [Inderal] 20 mg PO BID PRN 12/17/22 [History] busPIRone HCL 15 mg PO BID PRN 12/17/22 [History] Follow up Appointment(s)/Referral(s): None,Stated [Primary Care Provider] - 1-2 days Patient Instructions/Handouts: Alcohol Intoxication (DC), Abuse of Alcohol (DC), Alcohol Withdrawal (DC) Discharge Disposition: HOME SELF-CARE
[2023-01-11] MEDS ORDERED: THIAMINE 100 MG TAB PO SCH (09:00)
[2023-01-11] MEDS ORDERED: ENOXAPARIN 40 MG/0.4 ML SYRINGE SQ SCH (09:00)
== END 2023-01-11 08:18 | disposition home or self-care (01) ==
LOC: EC 11:51 → 6NMEDSUR 14:54
PROVIDERS: ADMIT Student in an Organized Health Care Education/Training Program; ATTEND Student in an Organized Health Care Education/Training Program
DX: F10.220 Alcohol dependence with intoxication, uncomplicated (principal); E86.0 Dehydration; F20.0 Paranoid schizophrenia; G89.29 Other chronic pain; J44.9 Chronic obstructive pulmonary disease, unspecified; I10 Essential (primary) hypertension; G40.909 Epilepsy, unspecified, not intractable, without status epilepticus; G62.9 Polyneuropathy, unspecified; F41.9 Anxiety disorder, unspecified; F31.9 Bipolar disorder, unspecified; F32.A Depression, unspecified; D75.839 Thrombocytosis, unspecified; F90.9 Attention-deficit hyperactivity disorder, unspecified type; R74.01 Elevation of levels of liver transaminase levels; E43 Unspecified severe protein-calorie malnutrition; F17.200 Nicotine dependence, unspecified, uncomplicated; K58.9 Irritable bowel syndrome, unspecified; Z79.899 Other long term (current) drug therapy; Z88.8 Allergy status to other drugs, medicaments and biological substances; Z82.49 Family history of ischemic heart disease and other diseases of the circulatory system; Z82.41 Family history of sudden cardiac death; Z63.4 Disappearance and death of family member; Z81.1 Family history of alcohol abuse and dependence; Z80.3 Family history of malignant neoplasm of breast; Z68.22 Body mass index [BMI] 22.0-22.9, adult; Z80.7 Family history of other malignant neoplasms of lymphoid, hematopoietic and related tissues; Z86.718 Personal history of other venous thrombosis and embolism; Y90.8 Blood alcohol level of 240 mg/100 ml or more
CPT/HCPCS: 96360; 96361; 99285; 36415; 80053; 83735; 85025; G0378 ×2; G0480; S4990; 80320

== ENCOUNTER 2023-10-05 07:31 | Inpatient (IN) | payer MEDICARE, OTHER ==
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
[2023-10-05 09:07] LABS: Amphetamine Screen,Urine Not Detected (NotDetected); Barbiturate Screen,Urine Not Detected (NotDetected); Benzodiazepines Screen,Urine Not Detected (NotDetected); Cocaine Screen,Urine Not Detected (NotDetected); Methadone Screen, Urine Not Detected (NotDetected); Opiate Screen,Urine Not Detected (NotDetected); Oxycodone Screen, Urine Not Detected (NotDetected); Phencyclidine Screen,Urine Not Detected (NotDetected); Tricyclic Antidepressant,Urine Detected (NotDetected); Urn Cannabinoid Scrn Not Detected (NotDetected)
[2023-10-05 09:46] LABS: Basophils % (A) 0 %; Eosinophils # (A) 0.2 k/uL (0-0.7); Eosinophils % (A) 1 %; HGB 11.6 gm/dL (13.0-17.5); Lymphocytes % (A) 8 %; MCH 30.9 pg (25.0-35.0); MCHC 32.2 g/dL (31.0-37.0); MCV 95.8 fL (80.0-100.0); Mean Platelet Volume 7.4; Monocytes # (A) 0.7 k/uL (0-1.0); Monocytes % (A) 6 %; Neutrophils # (A) 9.6 k/uL (1.3-7.7); Neutrophils % (A) 83 %; Platelet Count 305 k/uL (150-450); RBC 3.76 m/uL (4.30-5.90); RDW 13.3 % (11.5-15.5); WBC 11.7 k/uL (3.8-10.6)
[2023-10-05 10:05] LABS: ALT 24 U/L (4-49); AST 37 U/L (17-59); African American GFR (CKD) >90 (>60 ml/min/1.73 sqM); Alkaline Phosphatase 82 U/L (38-126); Anion Gap 3 mmol/L; Blood Urea Nitrogen 14 mg/dL (9-20); Calcium 9.3 mg/dL (8.4-10.2); Carbon Dioxide 27 mmol/L (22-30); Chloride 108 mmol/L (98-107); Glucose 96 mg/dL (74-99); Magnesium 2.1 mg/dL (1.6-2.3); Non-African American GFR(CKD) >90 (>60 ml/min/1.73 sqM); Potassium 4.2 mmol/L (3.5-5.1); Sodium 138 mmol/L (137-145); Total Bilirubin 1.2 mg/dL (0.2-1.3); Total Protein 6.9 g/dL (6.3-8.2)
--- NOTE | 2023-10-05 12:02 | CT ---
EXAMINATION TYPE: CT brain wo con DATE OF EXAM: 10/05/2023 COMPARISON: 12/27/2022. HISTORY: Lethargy. CT DLP: 1199.4 mGycm Automated exposure control for dose reduction was used. FINDINGS: There is no acute intracranial hemorrhage, mass, mass effect, midline shift, extra-axial fluid collec tion or hydrocephalus. The sarabia-white distinction is intact without evidence of an acute major vessel infarct. There is mucosal thickening within the ethmoid air cells bilaterally and partial opacification in the se regions. Partial opacification of the left frontal sinus is also noted. Suspect prior nasal surger y. IMPRESSION: 1. NO ACUTE INTRACRANIAL PROCESS. 2. SINUS DISEASE ABOVE.
[2023-10-05] MEDS: LORazepam 2 MG/ML INJ IV STA (15:07)
[2023-10-05 17:34] LABS: Appearance,Urine Clear (Clear); Bilirubin,Urine Negative (Negative); Blood,Urine Negative (Negative); Color,Urine Yellow; Glucose,Urine (UA) Negative (Negative); Ketones,Urine Trace (Negative); Leukocyte Esterase,Urine Negative (Negative); Nitrite,Urine Negative (Negative); PH, Urine 6.5 (5.0-8.0); Protein,Urine Trace (Negative); Specific Gravity,Urine 1.019 (1.001-1.035); Urobilinogen,Urine <2.0 mg/dL (<2.0)
[2023-10-05] MEDS ORDERED: NALOXONE 0.4 MG/ML 1 ML VIAL IV PRN (19:05)
[2023-10-05] MEDS ORDERED: ALBUTEROL NEBULIZED 2.5 MG/3 ML INHALATION PRN (19:08)
[2023-10-05] MEDS: SODIUM CHLORIDE 0.9% 1,000 ML IV SCH (19:33)
[2023-10-05] MEDS: ATORVASTATIN 40 MG TAB PO SCH (20:30)
[2023-10-05] MEDS: LACTULOSE 20 GM/30 ML CUP PO SCH (20:31)
[2023-10-06] MEDS: QUEtiapine 100 MG TAB PO SCH (00:05)
[2023-10-06 05:53] LABS: Glucose,Whole Blood 83 mg/dL (70-110)
[2023-10-06] MEDS: ASPIRIN 81 MG PO SCH (08:35)
[2023-10-06] MEDS: PANTOPRAZOLE 40 MG/10 ML VIAL IV SCH (08:35)
[2023-10-06] MEDS: SERTRALINE 50 MG TAB PO SCH (08:35)
[2023-10-06] MEDS ORDERED: NON FORMULARY DRUG (Omeprazole 40 MG Capsule.Dr) PO SCH (09:00)
[2023-10-06] MEDS: IPRATROPIUM 0.5 MG/2.5 ML NEBU INHALATION SCH (09:03)
[2023-10-06 10:31] LABS: Basophils # (A) 0.06 X 10*3/uL (0.00-0.10); Basophils % (A) 0.7 %; Eosinophils % (A) 5.4 %; HCT 35.9 % (39.6-50.0); HGB 11.7 g/dL (13.0-17.0); Lymphocytes # (A) 1.68 X 10*3/uL (0.90-5.00); Lymphocytes % (A) 18.2 %; MCHC 32.6 g/dL (32.0-37.0); Mean Platelet Volume 9.9 FL (9.5-12.2); Monocytes # (A) 1.02 X 10*3/uL (0.20-1.00); Monocytes % (A) 11.1 %; NRBC Per 100 WBC 0 X 10*3/uL (0.00-0.01); Neutrophils # (A) 5.95 X 10*3/uL (1.80-7.70); Neutrophils % (A) 64.4 %; Platelet Count 291 X 10*3/uL (140-440); RBC 3.78 X 10*6/uL (4.40-5.60); RDW 13.9 % (11.5-14.5); WBC 9.23 X 10*3/uL (4.50-10.00)
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
[2023-10-06] MEDS: LITHIUM CARBONATE 150 MG CAP PO SCH (20:26)
--- NOTE | 2023-10-06 22:47 | P.CN ---
Psychiatric Consult - . Consult date: 10/06/23 Consult:: Reason for Consult/Chief Complaint: Psychiatric evaluation due to altered mental status and hallucinations presented by the patient. History of Present Illness: The patient was assessed in his room on the medical floor, exhibiting some degree of irritability and limited cooperation. He appeared confused and somewhat disorganized. Initially, he denied any history of psychiatric diagnosis, but later, during evaluation, he mentioned receiving treatment at [facility] without specifying any diagnosis, stating "for some reason." The patient was unable to articulate the reason for his hospital visit and spoke bizarrely about "a portillo in the court, situation, fake all action." Although alert and oriented to time, person, and place, he couldn't recall events preceding his hospitalization, describing it as "hard to explain for anyone to understand." The patient denied current auditory or visual hallucinations, besides anxiety, for which he requested Ativan. He also denied suicidal or homicidal ideation, paranoid ideation, and exhibited no elicited delusions. Furthermore, he denied feelings of depression, hopelessness, or suicidal ideation, as well as manic symptoms such as elevated mood, grandiosity, or decreased need for sleep due to increased energy. As per the nursing staff from EPS in the Emergency Department, the patient is well-known to the local [facility], and his caseworker intake reported that the patient has never experienced hallucinations or exhibited bizarre, disorganized thoughts or behavior. This suggests that medical causes of his presentation are more likely than psychiatric instability. Past psychiatric history: Psychiatric diagnosis: Anxiety Previous psychiatric hospitalizations: None as per patients report Previous suicidal attempts: None as per patients report Previous/ current outpatient psychiatric treatment: Patient cant recall his home psychiatric medications. Substance use history: The patient was very superficial answering questions and denied using drugs or alcohol. He reported he smokes 1 pack of cigarettes daily. Social/ Developmental History: The patient lives by himself. He is unemployed on SSDI. The patient has no children and they never . He graduated high school and had some college education Family Psychiatric History: Patient denied family history of suicide, mental illness, or substance use disorders. Mental Status Examination: Appearance: Appears stated age, disheveled, below average body belt. Gait/ posture: The gait was not assessed. Attitude and Behavior: The patient was not engaged and not cooperative, had very poor eye contact during evaluation Motor Activity: normal psychomotor activity Speech: Normal rate, abnormal rhythm, and articulation. None pressured. Mood: " anxious Affect: constricted Thought form: disorganized Thought content: denies suicidal, homicidal thoughts, intentions, or plans. Perception: Denies any auditory/ visual or tactile hallucinations. Attention: No impairment. Orientation: Oriented to time, place, person, and situation. Insight & Judgment: limited Impulse control: limited Assessment: Bipolar disorder by history. Recommendation: Disposition/Follow-up: Addressed and ensured patient's safety, patient does not meet the criteria for psychiatric hospitalization. As per the nursing staff from [facility] in the Emergency Department, the patient is well-known to the local [facility], and his caseworker intake reported that the patient has never experienced hallucinations or exhibited bizarre, disorganized thoughts or behavior. This suggests that medical causes of his presentation are more likely than psychiatric instability. Currently there is no need for further follow-up by psychiatric team. Refer the patient to outpatient psychiatric treatment after discharge with local [facility]. Brief supportive psychotherapy and psycho-education was provided to the patient Discussed the treatment plan with the requesting physician/service. Thank you for permitting me to assist in this patient's treatment. Please call the psychiatry department if you have any questions or need further help with this case.
[2023-10-07] MEDS: CYCLOBENZAPRINE 10 MG TAB PO PRN (02:09)
[2023-10-07] MEDS: GABAPENTIN 300 MG CAP PO SCH (02:09)
[2023-10-07 08:34] VITALS: BP 135/80; PULSE 66; RESP 16; TEMP 98.3
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
== END 2023-10-07 11:28 | disposition home or self-care (01) | DRG 70 ==
LOC: EC 07:31 → 4SSUR 19:10
PROVIDERS: ADMIT Hospitalist; ATTEND Hospitalist
DX: G93.41 Metabolic encephalopathy (principal); E43 Unspecified severe protein-calorie malnutrition; F20.0 Paranoid schizophrenia; E86.0 Dehydration; Z86.718 Personal history of other venous thrombosis and embolism; G89.29 Other chronic pain; F41.9 Anxiety disorder, unspecified; J44.9 Chronic obstructive pulmonary disease, unspecified; Z86.59 Personal history of other mental and behavioral disorders; Z68.24 Body mass index [BMI] 24.0-24.9, adult; G62.9 Polyneuropathy, unspecified; F31.9 Bipolar disorder, unspecified; Z88.1 Allergy status to other antibiotic agents; Z91.013 Allergy to seafood; F43.21 Adjustment disorder with depressed mood; F60.3 Borderline personality disorder; F90.9 Attention-deficit hyperactivity disorder, unspecified type; K58.9 Irritable bowel syndrome, unspecified; M41.9 Scoliosis, unspecified; Z86.14 Personal history of Methicillin resistant Staphylococcus aureus infection; I10 Essential (primary) hypertension; Z79.82 Long term (current) use of aspirin; Z79.899 Other long term (current) drug therapy; Z82.49 Family history of ischemic heart disease and other diseases of the circulatory system
CPT/HCPCS: 36415; 70450; 80053; 80178; 80306; 81003; 82075; 82140; 83735; 85025; 96361; 96374; 99285

== ENCOUNTER → 2023-12-28 | Outpatient (CLI) | payer MEDICARE, OTHER ==
--- NOTE | 2023-12-28 16:55 | US ---
EXAMINATION TYPE: US carotid duplex BILAT DATE OF EXAM: 12/28/2023 COMPARISON: NONE CLINICAL INDICATION: Male, 58 years old with history of R40.20 UNSPECIFIED COMA; Smoker. TECHNIQUE: Carotid duplex ultrasound examination. Indirect Doppler criteria was utilized. FINDINGS: EXAM MEASUREMENTS: RIGHT: Peak Systolic Velocity (PSV) cm/sec ----- Right CCA: 98.3 ----- Right ICA: 95.8 ----- Right ECA: 104.8 ICA/CCA ratio: 1.0 RIGHT: End Diastole cm/sec ----- Right CCA: 30.0 ----- Right ICA: 24.6 ----- Right ECA: 19.2 LEFT: Peak Systolic Velocity (PSV) cm/sec ----- Left CCA: 94.7 ----- Left ICA: 108.1 ----- Left ECA: 94.0 ICA/CCA ratio: 1.1 LEFT: End Diastole cm/sec ----- Left CCA: 29.9 ----- Left ICA: 25.7 ----- Left ECA: 17.6 VERTEBRALS (direction of flow): Right Vertebral: Antegrade Left Vertebral: Antegrade Rhythm: Normal SEED BUYER NOTES: No plaque or wall thickening. No elevated velocities. IMPRESSION: No ultrasound evidence for hemodynamically significant stenosis of the bilateral visualized carotid a rterial systems. Criteria for Assigning % of Stenosis / Diameter reduction (Estimation based on the indirect measurements of the internal carotid artery velocities (ICA PSV). 1. Normal (no stenosis)=ICA PSV < 125 cm/s: ratio < 2.0: ICA EDV<40 cm/s. 2. Less than 50% stenosis=ICA PSV < 125 cm/s: ratio < 2.0: ICA EDV<40 cm/s. 3. 50 to 69% stenosis=ICA PSV of 125 to 230 cm/s: ration 2.0 ? 4.0: ICA EDV 40-100 cm/s. 4. Greater than 70% stenosis to near occlusion= ICA PSV > 230 cm/s: ratio > 4.0: ICA EDV > 100 cm/s. 5. Near occlusion= ICA PSV velocities may be low or undetectable: variable ratio and ICA EDV. 6. Total occlusion=unable to detect flow.
== END | disposition home or self-care (01) ==
LOC: RADUSWWP 14:26
PROVIDERS: ATTEND Family Medicine
DX: R40.20 Unspecified coma (principal)
CPT/HCPCS: 93880

== ENCOUNTER → 2024-01-04 | Outpatient (CLI) | payer MEDICARE, OTHER ==
--- NOTE | 2024-01-04 19:36 | MR ---
EXAMINATION TYPE: MR brain wo/w con DATE OF EXAM: 01/04/2024 COMPARISON: CT 10/05/2023 HISTORY: 58-year-old male R40.20, unspecified coma, Loss of Consciousness TECHNIQUE: Multiplanar, multisequence images of the brain and brainstem were acquired before and aft er administration of 7ml mL IV Gadavist. Diffusion weighted imaging is performed. FINDINGS: No evidence for acute infarction, hemorrhage, mass, mass effect, midline shift, herniation, effacemen t of basal cisterns, or extra-axial fluid collection. The ventricles and sulci are age-appropriate. Major intracranial flow voids are intact. T2/FLAIR weighted sequences show some cortical encephalomalacia lateral left temporal lobe and adjace nt gliosis. Similar changes along the lateral left frontal lobe. Midline structures demonstrate normal morphology. The craniocervical junction is normal. Post contrast images demonstrate no evidence of pathologic enhancement. Dural venous sinuses are pat ent. Moderate to severe mucosal thickening ethmoid air cells. Leftward nasal septal deviation. Some fluid within the inferior right mastoid air cells. IMPRESSION: 1. Small areas of encephalomalacia and gliosis along the lateral left temporal and lateral left front al lobes suggesting areas of old cortical infarct versus sequela of prior trauma. 2. No acute intracranial abnormality or enhancing lesions seen. 3. Moderate to severe chronic ethmoid sinus disease. 4. Small amount of fluid inferior mastoid air cells. Correlate for any mastoid pain to exclude mastoi ditis.
== END ==
LOC: RADMRIMAIN 11:41
PROVIDERS: ATTEND Family Medicine
DX: G93.89 Other specified disorders of brain (principal); J32.2 Chronic ethmoidal sinusitis
CPT/HCPCS: 70553; A9585

== ENCOUNTER → 2024-02-01 | Outpatient (CLI) | payer MEDICARE, OTHER ==
--- NOTE | 2024-02-15 15:29 | CT ---
EXAMINATION TYPE: CT abdomen pelvis w con CT DLP: 533.30 mGycm, Automated exposure control for dose reduction was used. DATE OF EXAM: 02/01/2024 2:22 PM COMPARISON: None. CLINICAL INDICATION:Male, 59 years old with history of R63.4 ABNORMAL WEIGHT LOSS; abnormal weight lo ss, possible hernia TECHNIQUE: Axial CT of the abdomen and pelvis. Sagittal and coronal reformats were created on a [employer] workstation. Contrast used:100 mL of Isovue 300 with IV Contrast, (none if empty) Oral contrast used: with Oral Contrast FINDINGS: LOWER CHEST: Dependent opacities likely subsegmental atelectasis. ABDOMEN LIVER: Subcapsular subcentimeter hypodense lesion in the anterior right lobe, probably benign. GALLBLADDER AND BILE DUCTS: GB appears distended without evidence of calcified stones or inflammatory changes. Mildly prominent intrahepatic and extrahepatic biliary tree without obstruction evident. PA NCREAS: Unremarkable. SPLEEN: Unremarkable. ADRENAL GLANDS: Unremarkable. KIDNEYS AND URETERS: Kidneys enhance symmetrically. No evidence of hydronephrosis or visible renal ca lculus. The ureters are unremarkable. Small exophytic cyst from the left lower pole, and suspected pa rapelvic cyst. Other tiny bilateral hypodensities may also be cysts. PELVIS BLADDER: Incompletely distended and not well evaluated. Questionable abnormal bladder wall thickening and soft tissue density with small calcifications at the anterior aspect of the bladder. REPRODUCTIVE: Unremarkable. ABDOMEN & PELVIS STOMACH AND BOWEL: Stomach and small bowel are nondistended. Contrast traverses the small bowel loops without evidence of obstruction or significant wall thickening. The presumed appendix appears to be within normal limits. There is moderate stool throughout the colon without focal abnormality demonstrated. PERITONEUM/RETROPERITONEUM: No evidence of pneumoperitoneum or free fluid. VASCULATURE: Moderate atherosclerotic calcifications are present throughout the abdominal aorta and i ts branches. No evidence of aortic aneurysm. Portal veins are enhancing. Splenic vein and SMV are e nhancing. LYMPH NODES: No enlarged nodes by CT size criteria. SOFT TISSUE/ABDOMINAL WALL: Unremarkable MUSCULOSKELETAL: No acute osseous abnormalities. Moderate disc degeneration changes are present throu ghout the thoracolumbar spine. Prominent levoscoliosis of the lumbar spine. Mild anterior wedging T11 appears well-defined and likely to be chronic. Mild grade 1 anterolisthesis L5 on S1 may be related to combination of degenerative change and pars defects. IMPRESSION: 1. No evidence of an acute inflammatory or obstructive process. 2. Incompletely distended bladder with questionable abnormal bladder wall thickening and soft tissue density with small calcifications at the anterior aspect. Recommend UA and urine cytology, cystoscop y may also be considered. 3. Mildly distended gallbladder without evidence of calcified gallstones. Mild prominence of the flaco iary tree. Correlate clinically, with LFTs. 4. Other chronic and likely incidental findings, as described above.
== END | disposition home or self-care (01) ==
LOC: RADCTMAIN 12:23
PROVIDERS: ATTEND Family Medicine
DX: K82.8 Other specified diseases of gallbladder (principal); R63.4 Abnormal weight loss; N32.89 Other specified disorders of bladder
CPT/HCPCS: 74177; Q9967

== ENCOUNTER → 2024-02-08 | Outpatient (CLI) | payer MEDICARE, OTHER ==
--- NOTE | 2024-02-08 14:05 | CTL ---
EXAMINATION TYPE: CT Low Dose Lung DATE OF EXAM ORDERED: 02/08/2024 HISTORY: . Low Dose CT Lung Screening CT DLP: 62.[address] CTDI: 1.5 mGy IV CONTRAST USED: None. SCREENING VISIT: First visit COMPARISON: None. TECHNIQUE: Low dose computed tomography scan was performed through the chest at 1 millimeter thick se ctions and reconstructed images in the coronal plane at [address] DIAGNOSTIC QUALITY: Satisfactory FINDINGS: LUNG NODULES: Stellate right upper lobe nodular density measuring 8 mm. This is seen best on image 44 . Pleural-based nodule right lower lobe image 205 measuring 6 mm. Pleural-based nodule measuring 5 mm left lower lobe image 283. LUNGS: COPD: Severity: Moderate emphysematous changes. Fibrosis: Severity:None Lymph nodes: None Other findings: None RIGHT PLEURAL SPACE: Effusion: None Calcification: None Thickening: None Pneumothorax: None LEFT PLEURAL SPACE: Effusion: None Calcification: None Thickening: None Pneumothorax: None HEART: Heart Size: Mildly enlarged Coronary calcification: Mild Pericardial effusion: None OTHER FINDINGS: Upper abdomen: No significant abnormality Bony thorax: Degenerative changes Supraclavicular region: No significant abnormalityOther: No significant abnormalityI IMPRESSION: Stellate right upper lobe nodular density measuring [address] CHEST RECOMMENDATION: Follow-up low dose CT. PET/CT may be used 1 there is a equal than for greater than [address] LUNG RAD: LUNG RAD CATEGORY 4A suspicious
--- NOTE | 2024-02-08 16:01 | US ---
EXAMINATION TYPE: US groin LT DATE OF EXAM: 02/08/2024 COMPARISON: NONE CLINICAL INDICATION: Male, 59 years old with history of [id number] FIRM LYMPH NODE; Palpable left groin TECHNIQUE: Multiple color and grayscale images of the left groin were obtained FINDINGS: Multiple lymph nodes left groin, largest = 2.9 x 0.7 x 1.4cm IMPRESSION: Lymphadenopathy in the left groin with the largest lymph node 2.9 cm in length. Findings are suspicious for neoplasm. Lymph nodes are amenable to ultrasound-guided fine-needle aspiration if clinically indicated
== END | disposition home or self-care (01) ==
LOC: RADCTMAIN 13:26
PROVIDERS: ATTEND Family Medicine
DX: Z12.2 Encounter for screening for malignant neoplasm of respiratory organs (principal); R59.0 Localized enlarged lymph nodes; J98.4 Other disorders of lung; F17.210 Nicotine dependence, cigarettes, uncomplicated; R09.89 Other specified symptoms and signs involving the circulatory and respiratory systems
CPT/HCPCS: 71271

== ENCOUNTER 2024-03-01 20:43 | Emergency (ER) | payer MEDICARE, OTHER ==
[2024-03-01 20:51] VITALS: RESP 18; TEMP 99.2
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
--- NOTE | 2024-03-01 22:06 | XR ---
EXAMINATION TYPE: XR lumbar spine 2 or 3V DATE OF EXAM: 03/01/2024 CLINICAL HISTORY: pain TECHNIQUE: Three views of the lumbar spine are submitted. COMPARISON: None. FINDINGS: There are 5 lumbar type vertebral bodies identified. The lumbar spine shows satisfactory alignment w ithout evidence of acute fracture or dislocation. Vertebral body heights are within normal limits. Se srinivasan degenerative narrowing. Scoliotic curvature convex to the left. The overlying soft tissue appear s unremarkable. IMPRESSION: No acute fracture or dislocation is seen in the lumbar spine. ICD 10 NO FRACTURE, INITIAL EVALUATION
[2024-03-01] MEDS: HYDROcodone/APAP 5-325MG 1 EACH TAB PO STA (22:16)
[2024-03-01 22:19] VITALS: BP 144/94; PULSE 93
== END 2024-03-01 22:39 | disposition home or self-care (01) ==
LOC: EC 20:43
DX: M54.50 Low back pain, unspecified (principal); F17.200 Nicotine dependence, unspecified, uncomplicated; Z88.1 Allergy status to other antibiotic agents; Z88.6 Allergy status to analgesic agent; Z88.0 Allergy status to penicillin; Z91.013 Allergy to seafood; V78.1XXA Passenger on bus injured in noncollision transport accident in nontraffic accident, initial encounter
CPT/HCPCS: 72100; 99283

== ENCOUNTER → 2024-03-27 | Outpatient (CLI) | payer MEDICARE, OTHER | END | disposition home or self-care (01) | LOC: LABPAT 14:00 | PROVIDERS: ATTEND Surgery | DX: Z01.818 Encounter for other preprocedural examination (principal); K40.90 Unilateral inguinal hernia, without obstruction or gangrene, not specified as recurrent; R00.1 Bradycardia, unspecified; R94.31 Abnormal electrocardiogram [ECG] [EKG] | CPT/HCPCS: 86850; 86900; 86901 ==

== ENCOUNTER → 2024-03-31 | Outpatient (CLI) | payer MEDICARE, OTHER ==
--- NOTE | 2024-04-27 09:39 | CT ---
Site ID [facility] Patient Darryl Long M ID [id number] Age/Gender: 59Y, M Order # N/A Procedure CHEST/ABDOMEN/PELVIS W Date 03/31/2024 11:59:00 AM EXAMINATION TYPE: CT ChestAbdPelvis w con CT DLP: 450.40 mGycm, Automated exposure control for dose reduction was used. DATE OF EXAM: 04/09/2024 11:51 AM COMPARISON: CT low-dose lung cancer screening 02/08/2024, CT abdomen pelvis 02/01/2024, 08/07/2022, CTA chest 12/23/2022 CLINICAL INDICATION: Male, 59 year old with history of lung nodule; , Technique: Multiple axial images of the chest, abdomen, and pelvis were obtained following the intrav enous administration of 100 mL Isovue-300. Oral contrast was administered. Patient refused delayed st udy due to bathroom urgency. Two-dimensional coronal and sagittal reconstructions were obtained. Findings: CHEST: LUNGS/ PLEURA: No pleural effusion or pneumothorax. Moderate centrilobular emphysematous changes. Sim ilar right mid lung scarring. Biapical pleural-parenchymal scarring. Stable right apical 7.5 mm stel late nodule (series 4, image 14). Stable pleural-based right lower lobe 4.9 mm pulmonary nodule (seri es 4, image 45). Development of dependent left lower lobe patchy groundglass opacities. No new suspic ious pulmonary nodules or masses. AIRWAY: Patent and unremarkable.. HEART: Size within normal limits. No pericardial effusion. MEDIASTINUM: No gross evidence of adenopathy. VASCULATURE: No aortic aneurysm. MUSCULOSKELETAL: No acute osseous abnormalities. SOFT TISSUES/LYMPH NODES: Unremarkable. LOWER NECK: No significant findings. ABDOMEN: Elevation is limited due to lack of intra-abdominal fat. ABDOMEN LIVER: Stable right hepatic lobe 1.1 cm cyst. GALLBLADDER AND BILE DUCTS: Unremarkable. PANCREAS: Unremarkable. SPLEEN: Unremarkable. ADRENAL GLANDS: Unremarkable. KIDNEYS AND URETERS: No evidence of hydronephrosis. Unchanged left 0.8 cm nonobstructive calculus. Un changed 2.3 cm left renal sinus cyst. Additional exophytic left inferior pole 1.4 cm cyst. PELVIS BLADDER: Moderately distended urinary bladder with layering hyperdense material identified. Redemonst ration of irregular lesion along the anterior aspect of the urinary bladder with peripheral calcifica tion (series 3, image 106). This measures up to 2.6 cm. REPRODUCTIVE: Unremarkable. ABDOMEN & PELVIS STOMACH AND BOWEL: Stomach and duodenum are unremarkable. No evidence of bowel obstruction. Enteric c ontrast reaches the distal small bowel. Moderate colonic stool burden. No focal bowel wall thickening or surrounding inflammatory changes. PERITONEUM: No evidence of pneumoperitoneum or free fluid. VASCULATURE: Mild atherosclerotic calcifications are present throughout the abdominal aorta and its b ranches. No abdominal aortic aneurysm. MUSCULOSKELETAL: No acute osseous abnormalities. S-shaped scoliotic curvature. Stable nonspecific per ipheral sclerotic 1.2 cm lesion within the right iliac bone. Minimal anterior wedge compression defor mity of the T12 vertebral body with approximately 30% height loss and retropulsion. Moderate multilev el degenerative disease of the lumbar spine. 6 lumbar type vertebral bodies identified. Grade 1 anter olisthesis of L6 on S1 with bilateral pars defects. LYMPH NODES: No gross evidence for lymphadenopathy. SOFT TISSUE/ABDOMINAL WALL: Unremarkable IMPRESSION: 1. Moderately distended urinary bladder with layering hyperdense material favored to represent blood products. Redemonstrated 2.6 cm nodule along the anterior bladder wall which raises the possibility of neoplasm. Direct visualization is recommended. 2. Stable nonspecific 7.5 mm right apical pulmonary stellate nodular density. Additional stable righ t lower lobe pleural-based 4.9 mm pulmonary nodule. Continued surveillance is recommended. 3. Left lower lobe dependent groundglass opacities which may represent atelectasis versus developing infectious/inflammatory process. 4. Mild COPD changes. 5. Moderate colonic stool burden. 6. Nonobstructive left renal calculus.
== END | disposition home or self-care (01) ==
LOC: RADCTMAIN 09:26
PROVIDERS: ATTEND Internal Medicine Hematology & Oncology
DX: J43.8 Other emphysema (principal); R22.2 Localized swelling, mass and lump, trunk; J44.9 Chronic obstructive pulmonary disease, unspecified; N20.0 Calculus of kidney
CPT/HCPCS: 71260; 74177; Q9967

== ENCOUNTER 2024-04-09 08:00 | Day surgery (SDC) | payer MEDICARE, OTHER ==
[2024-04-09] MEDS ORDERED: DEXAMETHASONE SOD PHOSPHATE 4 MG/ML 1 ML VIAL ONE ×4 (08:45→09:08)
[2024-04-09] MEDS ORDERED: ONDANSETRON 4 MG/2 ML VIAL ONE ×2 (08:45)
[2024-04-09] MEDS ORDERED: SODIUM CHLORIDE 0.9% 50 ML BAG IV ONE (09:00)
[2024-04-09] MEDS ORDERED: LACTATED RINGERS 1,000 ML BAG ONE ×2 (09:00→11:10)
[2024-04-09] MEDS ORDERED: LIDOCAINE 1%-EPI 1:100,000 20 ML VIAL ONE (09:00)
[2024-04-09] MEDS ORDERED: ceFAZolin 10 GM VIAL IVPB ONE (09:00)
[2024-04-09] MEDS ORDERED: fentaNYL (PF) 50 MCG/ML 2 ML AMP ONE ×4 (09:08→11:27)
[2024-04-09] MEDS ORDERED: SODIUM CHLORIDE 0.9% (PF) VIAL 20 ML ONE ×2 (09:09)
[2024-04-09] MEDS ORDERED: ROPIVACAINE 5 MG/ML 30 ML VIAL ONE ×3 (09:09→10:08)
[2024-04-09] MEDS ORDERED: MIDAZOLAM 2 MG/2 ML VIAL ONE ×3 (09:09→10:08)
[2024-04-09] MEDS ORDERED: HEPARIN SODIUM,PORCINE 5,000 UNIT/ML 1 ML VIAL ONE ×2 (09:24)
[2024-04-09] MEDS ORDERED: SUCCINYLCHOLINE CHLORIDE 200 MG/10 ML VIAL IV ONE (10:08)
[2024-04-09] MEDS ORDERED: KETAMINE HCL IN 0.9 % NACL 50 MG/5 ML SYRINGE ONE (10:08)
[2024-04-09] MEDS ORDERED: VECURONIUM 10 MG VIAL IV ONE (10:08)
[2024-04-09] MEDS ORDERED: GLYCOPYRROLATE 0.2 MG/ML 2 ML VIAL ONE (10:08)
[2024-04-09] MEDS ORDERED: PROPOFOL 10 MG/ML 20 ML VIAL IV ONE (10:08)
[2024-04-09] MEDS ORDERED: NEOSTIGMINE 1 MG/ML 10 ML VIAL ONE (10:08)
[2024-04-09] MEDS ORDERED: LIDOCAINE 1% INJ 10MG/ML (20 ML MDV) ONE (10:08)
[2024-04-09] MEDS ORDERED: SODIUM CHLORIDE 0.9% (PF) 10 ML VIAL ONE (10:08)
[2024-04-09] MEDS ORDERED: HYDROmorphone 0.5 MG/0.5 ML SYRINGE ONE (11:18)
[2024-04-09] MEDS ORDERED: TAMSULOSIN 0.4 MG CAP.ER.24H PO ONE ×2 (12:27)
--- NOTE | 2024-04-11 15:57 | OP ---
OPERATIVE REPORT DATE OF SERVICE : 04/09/2024 PROCEDURE: Laparoscopic robotic repair of left inguinal hernia. PREOP DIAGNOSIS: Left inguinal hernia. POSTOP DIAGNOSIS: Left inguinal hernia. SENIOR ARCHITECT/DESIGN MANAGER: None. ANESTHESIA: General endotracheal tube anesthesia. ESTIMATED BLOOD LOSS: Minimal. DESCRIPTION OF PROCEDURE: Patient was placed on the operative table in a supine position. He received general anesthesia. His abdomen was prepped and draped in the usual sterile fashion. A supraumbilical skin incision was made. Then, using a 5 mm optical trocar under direct visualization, the peritoneal cavity was entered. The abdomen was insufflated. After adequate insufflation, the laparoscope was placed back in the peritoneal cavity. Next, an 8 mm robotic trocar was placed in the right and left lateral position. The original 5 mm trocar was placed with an 8 mm robotic trocar. The patient was placed in Trendelenburg position. He was then docked to the robot. The peritoneum over the left inguinal hernia was opened. The hernia sac was dissected free. The large ProGrip mesh was placed in the hernia envelope window. The mesh was expanded and secured. The peritoneum was then closed using 2-0 V-Loc suture. The trocars were withdrawn. The skin was then closed with interrupted 3-0 Monocryl suture. Dermabond was applied. Patient tolerated the procedure well. He was sent to recovery room in stable condition. MMODL / IJN: [id number] /
== END 2024-04-09 15:25 ==
LOC: OR 08:00
PROVIDERS: ATTEND Surgery
DX: K40.90 Unilateral inguinal hernia, without obstruction or gangrene, not specified as recurrent (principal); K21.9 Gastro-esophageal reflux disease without esophagitis; Z79.899 Other long term (current) drug therapy
CPT/HCPCS: 64488; 86850; 86900; 86901

== ENCOUNTER 2024-06-09 11:42 | Emergency (ER) | payer MEDICARE, OTHER ==
[2024-06-09 11:49] VITALS: TEMP 98.2
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
--- NOTE | 2024-06-09 13:28 | XR ---
EXAMINATION TYPE: XR shoulder complete 3 views RT DATE OF EXAM: 06/09/2024 Comparison: None Clinical History: 59-year-old male with pain after football injury Findings: The AC joint appears congruent and intact. Subacromial space is preserved. No acute fracture, subluxa tion, or dislocation is seen. Impression: No acute osseous abnormality seen. If symptoms persist, consider MRI. [facility], , 06/09/2024 1:26 PM
[2024-06-09] MEDS: KETOROLAC 15 MG/ML 1 ML VIAL IM STA (15:01)
[2024-06-09] MEDS: tiZANidine 4 MG TAB PO STA (15:03)
[2024-06-09 15:17] VITALS: BP 123/86; PULSE 76; RESP 18
== END 2024-06-09 15:17 | disposition home or self-care (01) ==
LOC: EC 11:42
CPT/HCPCS: 96372; 99284

== ENCOUNTER → 2024-07-11 | Outpatient (CLI) | payer MEDICARE, OTHER ==
--- NOTE | 2024-07-11 14:20 | MR ---
EXAMINATION TYPE: MR shoulder RT wo con DATE OF EXAM: 07/11/2024 10:04 AM COMPARISON: None. CLINICAL INDICATION: Male, 59 years old with history of M25.511 PAIN IN RIGHT SHOULDER, Right shoulde r pain, decreased ROM x 1 month. TECHNIQUE: Multiplanar, multisequence imaging of the shoulder is performed without contrast. FINDINGS: There is no bone contusion or fracture. There is bone marrow edema in the distal clavicle and acromio n and there is mild degeneration of the AC joint. There is diffuse abnormal fluid signal intensity in the subcutaneous tissues overlying the AC joint raising the question of acute inflammation secondary to trauma or an infectious process. Subcutaneous abscess is not excluded. There is no rotator cuff tear. There is no labral injury. There is no subacromial or subdeltoid bursitis. The biceps tendon is normal in signal intensity and position within the bicipital groove and the mary ps anchor is intact. There is no significant arthritis of the glenohumeral joint. IMPRESSION: 1. No rotator cuff tear. 2. No labral injury. 3. Acute inflammatory changes in the AC joint and within the soft tissues overlying the AC joint as d escribed above. [facility], , 07/11/2024 2:18 PM
== END | disposition home or self-care (01) ==
LOC: RADMRIMAIN 09:03
PROVIDERS: ATTEND Family Medicine
DX: M25.511 Pain in right shoulder (principal)

== ENCOUNTER 2024-08-04 15:04 | Inpatient (IN) | payer MEDICARE, MEDICAID ==
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
[2024-08-04] MEDS: LORazepam 2 MG/ML INJ IM STA ×4 (15:32→21:14)
[2024-08-04] MEDS: HYDROcodone/APAP 5-325MG 1 EACH TAB PO STA (15:55)
[2024-08-04] MEDS: NICOTINE 21MG/24HR PATCH TRANSDERM STA (16:20)
[2024-08-04] MEDS: carisoprodoL 350 MG TAB PO STA (20:09)
[2024-08-05] MEDS ORDERED: MAGNESIUM HYDROXIDE 2,400 MG/30 ML CUP PO PRN (00:24)
[2024-08-05] MEDS ORDERED: HALOPERIDOL LACTATE 5 MG/ML 1 ML VIAL IM PRN (00:24)
[2024-08-05] MEDS: LORazepam 1 MG TAB PO PRN (07:13)
[2024-08-05] MEDS: haloperidoL 5 MG TAB PO PRN (07:39)
[2024-08-05] MEDS: NON FORMULARY DRUG (Buprenorphine/Naloxone 8mg/2mg 1 EACH Film) SUBLINGUAL SCH (08:11)
[2024-08-05] MEDS: GABAPENTIN 400 MG CAP PO SCH (08:11)
[2024-08-05] MEDS: NICOTINE 14MG/24HR PATCH TRANSDERM SCH (08:11)
[2024-08-05] MEDS: ASPIRIN 81 MG PO SCH (08:13)
[2024-08-05] MEDS: ACETAMINOPHEN TAB 325 MG TAB PO PRN (12:37)
[2024-08-05] MEDS: HYDROcodone/APAP 5-325MG 1 EACH TAB PO PRN (14:19)
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
[2024-08-05] MEDS: LORazepam 2 MG/ML INJ IM PRN (15:03)
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
[2024-08-05] MEDS: LURASIDONE 20 MG TAB PO SCH (21:50)
[2024-08-05] MEDS: ATORVASTATIN 40 MG TAB PO SCH (21:50)
[2024-08-05] MEDS: QUEtiapine 100 MG TAB PO ONE (21:51)
[2024-08-06] MEDS: PANTOPRAZOLE 40 MG TABLET PO SCH (07:21)
[2024-08-06 08:18] LABS: Basophils # (A) 0.1 k/uL (0-0.2); Basophils % (A) 1 %; Eosinophils # (A) 0.6 k/uL (0-0.7); Eosinophils % (A) 7 %; HCT 43.1 % (39.0-53.0); HGB 13.7 gm/dL (13.0-17.5); Lymphocytes % (A) 35 %; MCH 31.6 pg (25.0-35.0); MCHC 31.9 g/dL (31.0-37.0); Mean Platelet Volume 7.9; Monocytes # (A) 0.6 k/uL (0-1.0); Monocytes % (A) 7 %; Neutrophils # (A) 4.1 k/uL (1.3-7.7); Neutrophils % (A) 48 %; Platelet Count 345 k/uL (150-450); RBC 4.35 m/uL (4.30-5.90); RDW 13.6 % (11.5-15.5); WBC 8.5 k/uL (3.8-10.6)
[2024-08-06 08:33] LABS: ALT 17 U/L (4-49); AST 26 U/L (17-59); African American GFR (CKD) >90 (>60 ml/min/1.73 sqM); Albumin 4.3 g/dL (3.5-5.0); Alkaline Phosphatase 78 U/L (38-126); Anion Gap 7 mmol/L; Blood Urea Nitrogen 17 mg/dL (9-20); Calcium 9.6 mg/dL (8.4-10.2); Carbon Dioxide 23 mmol/L (22-30); Chloride 110 mmol/L (98-107); Glucose 134 mg/dL (74-99); Non-African American GFR(CKD) >90 (>60 ml/min/1.73 sqM); Potassium 4.4 mmol/L (3.5-5.1); Sodium 140 mmol/L (137-145); Total Bilirubin 0.9 mg/dL (0.2-1.3)
--- NOTE | 2024-08-06 14:54 | P.PN ---
Progress Note - Text Progress Note Date: 08/06/24 Dictation was produced using [employer] dictation software. please excuse any grammatical, word or spelling errors. Interval History: Patient states that he is feeling well, reported that his mood today as" I'm ok." Denied any current suicidal, self-harm or homicidal thoughts or behavior. Reported that he does not recall making threats to [facility] workers. Reported that he would never harm anyone. Reported that he is aware police will take his guns. States that he is compliant with his medication, denied any current side effects, denied any muscle stiffness, rigidity, abnormal movement, or drooling. Reported that he has been taking Suboxone quite sometimes. He denied any current auditory or visual hallucination, depression or anxiety. Later in the day the patient keep getting agitated, being loud, and it was not easy to redirect him, patient was fixated on discharge and was fixated on getting his firearms back from the police, it was confirmed that his firearm was removed out of his house. He received Haldol and Ativan p.o. was not helpful, we decided to switch him to Thorazine 50 mg p.o./IM every 4 hours as needed. Haldol as needed was stopped. ECG was ordered. MENTAL STATUS EXAM: General Appearance: Patient appears to be older than stated age is alert, directable, and attempts to cooperate. Patient appears to have poor hygiene and grooming. Patient was wearing home clothes, he has short hair, skinny however his BMI is 19.2, has hunch over when he walks, unsteady gait Behavior: Patient is seated without any agitated behavior. Speech: Patient's speech is fluent and nonpressured. Mood/Affect: Patient reports their mood is "fine" affect is congruent and constricted. Suicidality/Homicidality: Patient denies having any homicidal ideation intent or plan. Denies any suicidal ideations intent or plan Perceptions: Patient denies any visual hallucinations and denies any auditory hallucinations Though content/process: There is no evidence of any delusional thought content and thought process is linear and goal-directed. Memory and concentration: AOX3, grossly intact for the purposes of this session. Can spell "WORLD" backwards Judgment and insight: poor IMPRESSIONS: Patient is a 59 years old male with past psychiatric history of anxiety, bipolar disorder, depression, schizophrenia, and alcohol abuse, presented to the ED for having suicidal ideation. PLAN: -Patient is admitted with a petition and clinical certification, after speaking with the patient he agreed with treatment plan and will keep him under voluntary status to [facility] for stabilization of psychiatric symptoms and safety. -Medications : Increase Latuda to 40 mg p.o. at bedtime, take with food 350 cals Stop Seroquel giving the patient history of dizziness and unsteady gait -Thorazine PRN for agitation/aggression, Haldol/ativan prn was discontinued due to being ineffective, ECG ordered -Patient was counselled on substance abuse and desired to cut back on use of nicotine and cannabis -Will offer patient subtance use however patient declined at this time -Patient was informed of the risks, benefits and side effects of the medication and patient verbally consented to taking the medications. Patient signed med consent form and was placed in chart. -Internal Medicine consult to perform medical evaluation and physical. -NRT -nicotine patch -SW on board for discharge planning. Encourage patient to participate in groups to work on coping skills.
[2024-08-06] MEDS: chlorproMAZINE 25 MG TAB PO PRN (15:51)
[2024-08-06 16:01] LABS: Chol/HDL Ratio 3.03 Ratio; VLDL Calculation 17.62 mg/dL (5.00-40.00)
[2024-08-06] MEDS: LURASIDONE 40 MG TAB PO SCH (20:14)
[2024-08-06] MEDS ORDERED: QUEtiapine 200 MG TAB PO ONE (21:00)
[2024-08-06] MEDS: LORazepam 2 MG/ML INJ IM STA (22:47)
[2024-08-06] MEDS: ZIPRASIDONE 20 MG VIAL IM STA (22:48)
[2024-08-07] MEDS: LORazepam 0.5 MG TAB PO PRN (10:33)
[2024-08-07] MEDS: DIVALPROEX 250 MG TABLET.DR PO SCH (10:34)
--- NOTE | 2024-08-07 16:03 | P.PN ---
Progress Note - Text Progress Note Date: 08/07/24 Dictation was produced using [employer] dictation software. please excuse any grammatical, word or spelling errors. Interval History: Patient states that he is feeling very well, reported that his mood today as" very good." He admitted to good sleep, and good appetite. Denied any current suicidal, self-harm or homicidal thoughts or behavior. He denied any bad thoughts toward [facility] people, reported that he had an exaggerated response, he states that he was upset about his cancer diagnose. He states that he sent a text to his worker telling that "she is not the best person in the world." He states that he was drinking at that time, and reported that "it is not like him." He denied any current auditory or visual hallucination, he states that he is a has moderate depression which he rated at 6/10 mainly due to his medical condition. States that he is compliant with his medication, denied any current side effects, denied any muscle stiffness, rigidity, abnormal movement, or drooling. He agreed to start Depakote for mood stability and reported that he tried different antidepressant in the past and it was not working. Reported that Zoloft has been keeping him from sleep and reported that he does not want to go back on it. ECG was ordered yesterday, and is within normal limit. Patient was educated on as needed medication usage, was encouraged to cut down on using as needed medications. MENTAL STATUS EXAM: General Appearance: Patient appears to be older than stated age is alert, directable, and attempts to cooperate. Patient appears to have fair hygiene and grooming. Patient was wearing home clothes, he has short hair, skinny however his BMI is 19.2, has hunch over when he walks, unsteady gait Behavior: Patient is seated without any agitated behavior. Behavior has been improving compared to admission. Speech: Patient's speech is fluent and nonpressured. Mood/Affect: Patient reports their mood is "good" affect is congruent and constricted. Suicidality/Homicidality: Patient denies having any homicidal ideation intent or plan. Denies any suicidal ideations intent or plan Perceptions: Patient denies any visual hallucinations and denies any auditory hallucinations Though content/process: There is no evidence of any delusional thought content and thought process is linear and goal-directed. Memory and concentration: AOX3, grossly intact for the purposes of this session. Can spell "WORLD" backwards Judgment and insight: improving IMPRESSIONS: Patient is a 59 years old male with past psychiatric history of anxiety, bipolar disorder, depression, schizophrenia, and alcohol abuse, presented to the ED for having suicidal ideation. The patient has been acting erratically and easily agitated since he came to the unit, he has a history of bladder cancer, scheduled to have a PET scan sometime this month which could be helpful to rule out any metastasis and brain tumor causing his aggression and agitation. Patient behavior started to improve today he has been less angry and less agitated. Has been getting prn Thorazine and Geodon last night as needed. Has been improving today with little aggression. Starting Depakote, he agreed, we discussed having him on 0.5 mg of Ativan twice daily for few days with a plan to taper down and discontinue prior to discharge. PLAN: -Patient is admitted with a petition and clinical certification, after speaking with the patient he agreed with treatment plan and will keep him under voluntary status to [facility] for stabilization of psychiatric symptoms and safety. -Medications : Increase Latuda to 60 mg p.o. at bedtime, take with food 350 cals Start Depakote 250 mg p.o. twice daily Start Ativan 0.5 mg p.o. twice daily as needed Stop Seroquel giving the patient history of dizziness and unsteady gait -Thorazine PRN for agitation/aggression, Haldol/ativan prn was discontinued due to being ineffective, ECG ordered, within normal limit -Patient was counselled on substance abuse and desired to cut back on use of nicotine and cannabis -Will offer patient subtance use however patient declined at this time -Patient was informed of the risks, benefits and side effects of the medication and patient verbally consented to taking the medications. Patient signed med consent form and was placed in chart. -Internal Medicine consult to perform medical evaluation and physical. -NRT -nicotine patch -SW on board for discharge planning. Encourage patient to participate in groups to work on coping skills.
[2024-08-07] MEDS: LURASIDONE 60 MG TAB PO SCH (20:11)
[2024-08-07] MEDS: IBUPROFEN 400 MG TAB PO PRN (20:29)
[2024-08-07] MEDS ORDERED: QUEtiapine 100 MG TAB PO SCH (21:00)
--- NOTE | 2024-08-08 12:08 | P.PN ---
Progress Note - Text Progress Note Date: 08/08/24 Dictation was produced using [employer] dictation software. please excuse any grammatical, word or spelling errors. Interval History: Patient states that he is feeling "great," which was changed to "upset" when was updated about not leaving today. He states that another peer went to his room yesterday, and he was looking in his trash, he reported that he did not do anything and just left the room, reported that he did not say anything to him. He states that depression and anxiety are at the moderate side, he denied any current SI/HI, denied any AVH. He states that he want to go home, pt was fixated on discharge, he was agitated when told that he is not going to leave today and that he has been using many prn medications, he reported that he has been taking all different kind of medications in the past to help with his mood. He states that he has been taking his medications and he denied any side effects, denied any muscle stiffness, rigidity, abnormal movements, or drooling. An AIMS test was done, and show some tongue fasciculation. He states that he could not sleep last night, and reported that he does not feeling tired, it is reported that he slept for 2 hours last night. He reported that racing thoughts are improving. The pt was irritated about not leaving and the interview was ended. MENTAL STATUS EXAM: General Appearance: Patient appears to be older than stated age is alert, directable, and attempts to cooperate. Patient appears to have fair hygiene and grooming. Patient was wearing home clothes, he has short hair, skinny however his BMI is 19.2, has hunch over when he walks, unsteady gait Behavior: Patient is seated, he was agitated adn upset about not leaving today. However overall behavior has been improving compared to admission. Speech: Patient's speech is fluent and nonpressured. Mood/Affect: Patient reports their mood is "great then upset" affect is congruent and constricted. Suicidality/Homicidality: Patient denies having any homicidal ideation intent or plan. Denies any suicidal ideations intent or plan Perceptions: Patient denies any visual hallucinations and denies any auditory hallucinations Though content/process: There is no evidence of any delusional thought content and thought process is linear and goal-directed. Memory and concentration: AOX3, grossly intact for the purposes of this session. Can spell "WORLD" backwards Judgment and insight: limited IMPRESSIONS: Patient is a 59 years old male with past psychiatric history of anxiety, bipolar disorder, depression, schizophrenia, and alcohol abuse, presented to the ED for having suicidal ideation. The patient has been acting erratically and easily agitated since he came to the unit, he has a history of bladder cancer, scheduled to have a PET scan sometime this month which could be helpful to rule out any metastasis and brain tumor causing his aggression and agitation. Patient behavior started to improve yesterday he has been less angry and less agitated. He continue to be fixated on discharge, and was irritated, upset when told that he is not leaving today, he is argumentative and demanding for prn medications. Has been getting prn Thorazine. Depakote started yesterday, will continue to titrate. We discussed having him on 0.5 mg of Ativan twice daily for few days with a plan to taper down and discontinue prior to discharge. Pt agreed with the plan. Bipolar disorder, current episode mixed Nicotine use disorder Alcohol use disorder Hx of opiate use disorder PLAN: -Patient is admitted with a petition and clinical certification, after speaking with the patient he agreed with treatment plan and will keep him under voluntary status to [facility] for stabilization of psychiatric symptoms and safety. -Medications : Continue Latuda 60 mg p.o. at bedtime, take with food 350 cals (plan to increase to 80 mg tomorrow) Continue Depakote 250 mg p.o. twice daily (may consider increasing the dose in the next few days) Continue Ativan 0.5 mg p.o. twice daily as needed Stop Seroquel giving the patient history of dizziness and unsteady gait -Thorazine PRN for agitation/aggression, Haldol/ativan prn was discontinued due to being ineffective, ECG ordered, within normal limit -Patient was counselled on substance abuse and desired to cut back on use of nicotine and cannabis -Will offer patient subtance use however patient declined at this time -Patient was informed of the risks, benefits and side effects of the medication and patient verbally consented to taking the medications. Patient signed med consent form and was placed in chart. -Internal Medicine consult to perform medical evaluation and physical. -NRT -nicotine patch -SW on board for discharge planning. Encourage patient to participate in groups to work on coping skills.
[2024-08-08 15:07] VITALS: BMI 18.2
[2024-08-09] MEDS: chlorproMAZINE 25 MG/ML 2 ML AMP IM PRN (01:30)
[2024-08-09 11:55] LABS: Appearance,Urine Cloudy (Clear); Bacteria,Urine Rare /hpf; Bilirubin,Urine Negative (Negative); Blood,Urine Moderate (Negative); Color,Urine Yellow; Glucose,Urine (UA) Negative (Negative); Ketones,Urine Negative (Negative); Leukocyte Esterase,Urine Large (Negative); Mucus,Urine Moderate /hpf; Nitrite,Urine Negative (Negative); Protein,Urine 1+ (Negative); RBC,Urine 136 /hpf (0-5); Specific Gravity,Urine 1.034 (1.001-1.035); WBC,Urine 113 /hpf (0-5)
[2024-08-09 11:57] LABS: Amphetamine Screen,Urine Not Detected (NotDetected); Barbiturate Screen,Urine Not Detected (NotDetected); Benzodiazepines Screen,Urine Detected (NotDetected); Cocaine Screen,Urine Not Detected (NotDetected); Methadone Screen, Urine Not Detected (NotDetected); Opiate Screen,Urine Not Detected (NotDetected); Oxycodone Screen, Urine Not Detected (NotDetected); Phencyclidine Screen,Urine Not Detected (NotDetected); Tricyclic Antidepressant,Urine Not Detected (NotDetected); Urn Cannabinoid Scrn Detected (NotDetected)
--- NOTE | 2024-08-09 12:03 | P.PN ---
Progress Note - Text Progress Note Date: 08/09/24 Interval history: Patient was seen wandering the hallways and was directable and agreeable to s peak with chart writer. He appears to be more cooperative today, focused on anxiety and Ativan today. He also spoke about his medical procedures that he had done for his back. Mood and anxiety mildly improving, judgment and insight remain poor, improving, denied any problems with sleep last night or any side effects of medications. At this time patient denies any suicidal or homicidal ideations intent or plan. Denies any Auditory or visual hallucinations. Patient denies any side effects from the medications and has been compliant with meds. Mental status exam: General Appearance: Patient appears to be thin, unsteady gait stated age is alert, directable, and cooperative. Behavior: No agitated behavior. Patient is calm and directable times to cooperate Speech: Patient's speech is fluent and nonpressured. Mood/Affect: Mood is improving mildly, affect is congruent and constricted. Suicidality/Homicidality: Patient denies having any suicidal or homicidal ideation intent or plan. Perceptions: Patient denies any auditory or visual hallucinations. Though content/process: There is no evidence of any delusional thought content and thought process is linear and goal-directed. Focused on anxiety and Ativan Memory and concentration: AOX3, grossly intact for the purposes of this session Judgment and insight: Chronically poor, improving mildly Assessment/Plan: Continue with current diagnosis. Patient continues to meet criteria for inpatient psychiatric admission for symptom stabilization and safety. Patient will be maintained on current psychotropic medication regimen, with the exception of increasing Latuda to 80 mg with dinner. Monitor for medication compliance and for any psychotropic medication side effects. Will continue to monitor ongoing response to treatment. Encouraged participation in milieu.
[2024-08-09] MEDS: LURASIDONE 80 MG TAB PO SCH (17:52)
--- NOTE | 2024-08-10 10:45 | P.PN ---
Progress Note - Text Progress Note Date: 08/10/24 Interval history: Patient was seen wandering the hallways and was directable and agreeable to s peak with magazine writer. Patient claims that he is not doing well today. He appeared to be a bit more irritable today, states that he is frustrated because he is supposed to have a PET scan scheduled for tomorrow. He was requesting discharge. When magazine writer attempted to talk with them about possibly rescheduling the PET scan patient became furious and threw his water on the ground and ripped up a playing card threw it on the ground and stormed away and swore at magazine writer. He ended the interview early. Mental status exam: General Appearance: Patient appears to be thin, unsteady gait stated age is al ert, irritable, uncooperative Behavior: Agitation today. Speech: Patient's speech is fluent and nonpressured. Demanding and yelling at times Mood/Affect: Unable to assess Suicidality/Homicidality: Unable to assess Perceptions: P unable to assess Though content/process: Focused on anxiety and requesting discharge. Demanding. Memory and concentration: Able to assess Judgment and insight: Chronically poor Assessment/Plan: Continue with current diagnosis. Patient continues to meet criteria for inpatient psychiatric admission for symptom stabilization and safety. Patient will be maintained on current psychotropic medication regimen, increasing Depakote to 500 mg twice daily for mood stabilization/aggression. Monitor for medication compliance and for any psychotropic medication side effects. Will continue to monitor ongoing response to treatment. Encouraged participation in milieu.
[2024-08-10] MEDS: DIVALPROEX 500 MG TABLET.DR PO SCH (20:34)
[2024-08-11] MEDS ORDERED: chlorproMAZINE 25 MG/ML 2 ML AMP IM PRN (12:05)
--- NOTE | 2024-08-11 12:41 | P.PN ---
Progress Note - Text Progress Note Date: 08/11/24 Interval History: Patient was seen wandering the hallways and was directable and agreeable to sp mechelle with press writer in the office. Patient was tangential in conversation, fixated on being discharged. He states feeling "very improved" in terms of feeling better mentally, thinking before speaking, and dealing with his cancer diagnosis better. Staff noted during team meeting that patient appeared to be improving better with plans to change his [facility] team. Patient was not adherent with Depakote today however after speaking to the patient he later took this medication. Patient became upset when told he will not be discharged today, storming out of the office. Staff has worked with patient on changing his imaging scan related to his bladder cancer to August 2024 as he would not be able to attend today. Mental Status Exam: General Appearance: Patient appears to be stated age is alert, irritable and uncooperative. Behavior: Patient continues to display agitation, poor eye contact, unsteady gait Speech: Patient's speech is fluent and nonpressured. Mood/Affect: Mood is "improved", affect is congruent and labile. Suicidality/Homicidality: Patient denies having any suicidal or homicidal ideation intent or plan. Perceptions: Patient denies any visual hallucinations and denies any auditory hallucinations Though content/process: There is evidence of mild paranoia with tangential thought process Memory and concentration: AOX3, grossly intact for the purposes of this session Judgment and insight: Improving mildly Assessment Bipolar disorder, current episode mixed Nicotine dependence Alcohol use disorder History of opioid use disorder Plan: -Patient continues to meet criteria for inpatient psychiatric admission for symptom stabilization and safety. Patient has signed adult voluntary form and medication consent and was placed in patient's chart. Patient signed 72-hour to be discharged by tomorrow at 1440 -Medications: Continue Depakote 500 mg twice daily for mood stabilization, Latuda 80 mg daily for bipolar depression -When necessary Ativan and Thorazine for agitation/aggression. -Labs: Reviewed -NRT -nicotine patch -SW on board for discharge planning. Encouraged the patient to participate in milieu. Anticipate discharge home tomorrow with [facility] follow-up
[2024-08-11] MEDS: LORazepam 0.5 MG TAB PO STA (14:24)
[2024-08-11] MEDS: chlorproMAZINE 25 MG TAB PO ONE (14:24)
[2024-08-11] MEDS: LORazepam 1 MG TAB PO STA (15:43)
[2024-08-11] MEDS: MAG HYDROX/AL HYDROX/SIMETH 355 ML BOTTLE PO PRN (17:04)
[2024-08-11] MEDS: LURASIDONE 60 MG TAB PO SCH (17:05)
[2024-08-11] MEDS: ZIPRASIDONE 20 MG VIAL IM STA ×2 (17:09→23:24)
[2024-08-11] MEDS: chlorproMAZINE 25 MG TAB PO PRN (21:37)
[2024-08-12] MEDS: ZIPRASIDONE 20 MG VIAL IM STA (00:05)
[2024-08-12] MEDS: LORazepam 2 MG/ML INJ IM STA (00:05)
[2024-08-12 07:09] VITALS: BP 114/76; PULSE 80; RESP 18; TEMP 98.5
--- NOTE | 2024-08-12 11:40 | P.DS ---
Providers Date of admission: 08/04/24 23:53 Expected date of discharge: 08/12/24 Attending physician: Jenn Fritz MD Consults: 08/05/24 00:24 Consult Physician Routine Consulting Provider: [facility] Consult Reason/Comments: H&P and medical Do you want consulting provider notified?: Yes, Notify in am Primary care physician: Jennifer Brothers - Discharge Diagnosis(es) (1) Bipolar disorder, current episode mixed Current Visit: Yes Status: Acute Priority: High (2) Opioid use disorder in remission Current Visit: Yes Status: Chronic Priority: Low (3) Alcohol use disorder Current Visit: Yes Status: Chronic Priority: Medium (4) Tobacco use disorder Current Visit: Yes Status: Chronic Priority: Low Hospital Course: Admission HPI: Admission note was completed by Dr. Davis "Patient presented to the hospital having suicidal ideation, per report it is well-known to the emergency room staff, patient told his [facility] worker that he was suicidal, reported that he does have multiple loaded firearms in his household he had a pickup order. Law enforcement arrived to his house, brought the patient to the emergency room. Report patient has been sober for several weeks. On assessment today the patient reported that he came in after the [facility] worker claims about him saying that he will use a gun to harm himself, he states that he never said something like that, he denied any current suicidal, homicidal, self-harm thoughts or behavior, intention or plan. He states that he never harm himself in the past and denied any previous suicidal history. Denied any curre nt depression, denied any pain down, sad, depressed, hopeless, helpless, worthless. Reported that his sleep is on and off. Reported poor appetite. He reported that he was diagnosed with bipolar disorder in the past and admitted to racing thoughts, flight of ideas, erratic behavior at times however reported that has been improving. Denied any current auditory or visual hallucination, paranoia or delusion. He states that he has been following up with [facility] for a long time, reported he was on lithium however his doctor at [facility] has been tapering him off lithium and he was switched to Seroquel, he states that he was on Seroquel in the past which made him dizzy and he was falling. States that he did not take any Seroquel for a long time and reported that he refused to take it after it was prescribed to him. States that he has been sober from alcohol for a year and a half, reported that he was hooked on [place] for back pain however nothing recently and he has been on Suboxone for a year. He admitted to smoking 1 pack/day, and use cannabis daily. Reported that he was diagnosed with bladder cancer and reported that he will have a follow-up and a PET scan scheduled for 08/11. The patient reported that he has a shotgun and 2 revolver in his house. Unsure what happened to those guns after he spoke with his [facility]." Hospital course: Upon admission to the unit patient was directable and agreeable to commence treatment and signed adult voluntary form. Patient signed 72 hours to be discharged by 08/12 at 1440. Patient was largely agitated, easily irritable, requiring several as needed medications for his behaviors however did appear to improve somewhat towards the end of his stay. Patient was intermittently compliant with the medications and denied any side effects throughout hospital course. Patient was started on Depakote and this was increased to 500 mg twice daily for mood stabilization, Latuda increased to 80 mg daily for bipolar depression. Patient spoke of his stressors and engaged in therapy both group and individual. Patient was also seen by medical team for history and physical exam. Throughout the course of the hospitalization patient gradually improved with regards to mood, anxiety, sleep and returned back to their baseline level of functioning. On the day of discharge patient denied any suicidal or homicidal ideations intent or plan denied any auditory or visual hallucinations. The patient denied any access to guns or weapons. Patient denied any paranoia and did not endorse any delusions. Patient does have a significant history of substance abuse and was counseled on abstaining from all substances including alcohol and marijuana. Patient was offered however declined inpatient substance-abuse rehab. Patient is currently on Suboxone for maintenance of opioid use disorder. Patient was also counseled on the medications and need for regular compliance and was encouraged to follow-up with their outpatient appointment for mental health and also for primary care. Patient to be discharged back home, firearms were confirmed to be removed from the home. He will follow-up with [facility] with ACT services. Mental status exam: General Appearance: Patient appears to be order than stated age is alert and more cooperative. Patient is in no acute distress and has fair hygiene and grooming Behavior: There is evidence of psychomotor restlessness, poor eye contact, unsteady gait Speech: Patient's speech is fluent and nonpressured. Mood/Affect: Patient reports their mood is "all right", affect is congruent and labile. Suicidality/Homicidality: Patient denies having any suicidal or homicidal ideation intent or plan. Perceptions: Patient denies any auditory or visual hallucinations. Though content/process: There is no evidence of any delusional thought content and thought process is linear and goal-directed. Memory and concentration: AOX3, grossly intact for the purposes of this session. Can spell "WORLD" backwards correctly. Judgment and insight: Chronically poor, however has improved with guarded prognosis Impression: Bipolar disorder, current episode mixed Tobacco use disorder Alcohol use disorder Opioid use disorder, in remission on MAT Plan: -Continue with discharge today as patient has improved and stabilized psychiatrically and is not currently an imminent threat to themself and/or others. -Continue medications: Depakote 500 mg twice daily, Latuda 80 mg daily -Patient was counseled on the need for medication compliance and appropriate follow-up at mental health and also primary care for medical issues. Patient verbalized understanding and agreed. -Social work to help coordinate patients discharge today. also to ensure safe home environment that guns/weapons are either removed from the home or locked away. Social work also to arrange for patients follow up appointments with [facility] for psychiatric care along with follow up with primary care provider. -Patient counseled on abstaining from recreational drugs and marijuana and alcohol. Was informed/educated on the adverse effects on their physical and mental health. Patient verbally agreed and understood. Patient was offered substance abuse treatment however declined at this time. -Patient was instructed to return to the hospital or seek immediate medical care if their psychiatric or medical symptoms do worsen or reoccur. Abnormal Labs 08/06/24 08/07/24 07:50 11:43 Chloride 110 H Creatinine 0.61 L Glucose 134 H Urine Protein 1+ H Urine Blood Moderate H Ur Leukocyte Esterase Large H Urine RBC 136 H Urine WBC 113 H Urine Bacteria Rare H Urine Mucus Moderate H U Benzodiazepines Scrn Detected H U Marijuana (THC) Screen Detected H Vital Signs Temp 98.5 F 08/12/24 06:24 Pulse 80 08/12/24 06:24 Resp 18 08/12/24 06:24 BP 114/76 08/12/24 06:24 Pulse Ox 96 08/12/24 06:24 FiO2 Allergies Allergy/AdvReac Type Severity Reaction Status Date / Time Fish Containing Products Allergy Anaphylaxis Verified 08/04/24 18:38 [Fish] amoxicillin [From Augmentin] AdvReac Nausea & Verified 08/04/24 18:38 Vomiting clavulanic acid AdvReac Nausea & Verified 08/04/24 18:38 [From Augmentin] Vomiting ibuprofen [From Motrin] AdvReac Nausea & Verified 08/07/24 19:08 Vomiting Patient Condition at Discharge: Stable Plan - Discharge Summary Discharge Rx Participant: No New Discharge Prescriptions: New Divalproex [Depakote] 500 mg PO BID 30 Days #60 tab Nicotine 14Mg/24Hr Patch [Habitrol] 1 patch TRANSDERM DAILY patch Lurasidone [Latuda] 80 mg PO 1800 30 Days #30 tab Aspirin 81 mg PO DAILY 30 Days #30 tab Atorvastatin [Lipitor] 40 mg PO HS 30 Days #30 tab Pantoprazole [Protonix] 40 mg PO AC-BRKFST 30 Days #30 tab Continue Gabapentin [Neurontin] 400 mg PO TID 30 Days #90 cap Buprenorphine/Naloxone 8Mg/2Mg [Suboxone 8-2Mg Film] 1 film SL BID Discharge Medication List Buprenorphine/Naloxone 8Mg/2Mg [Suboxone 8-2Mg Film] 1 film SL BID 10/05/23 [History] Aspirin 81 mg PO DAILY 30 Days #30 tab 08/11/24 [Rx] Atorvastatin [Lipitor] 40 mg PO HS 30 Days #30 tab 08/11/24 [Rx] Divalproex [Depakote] 500 mg PO BID 30 Days #60 tab 08/11/24 [Rx] Gabapentin [Neurontin] 400 mg PO TID 30 Days #90 cap 08/11/24 [Rx] Lurasidone [Latuda] 80 mg PO 1800 30 Days #30 tab 08/11/24 [Rx] Nicotine 14Mg/24Hr Patch [Habitrol] 1 patch TRANSDERM DAILY patch 08/11/24 [Rx] Pantoprazole [Protonix] 40 mg PO AC-BRKFST 30 Days #30 tab 08/11/24 [Rx] Follow up Appointment(s)/Referral(s): [facility] [place] [Other] - 09/01/24 7:15 am ([facility] - on [facility] near [facility]'s PET scan) [facility] [Outside] - 08/15/24 4:30 pm (08/15/2024 4:30PM - 5:30PM NORY FRYE 08/25/2024 10:00AM - 10:30AM JESSICA BLOOD ) Jennifer Brothers MD [Primary Care Provider] - 1-2 days Patient Instructions/Handouts: How to Stop Smoking (DC), Bipolar Disorder (DC) Activity/Diet/Wound Care/Special Instructions: [facility] Discharge Info Avoid the use of street drugs and alcohol. Take all medications as prescribed. When you are in need of refills on your medications, please contact your outpatient medical provider and/or outpatient psychiatrist. Please go to your scheduled outpatient appointments for aftercare treatment. If symptoms return or become worse, call the crisis line at or and/or visit the nearest emergency room for assistance. National Suicide and Crisis Lifeline - call or text 638 Discharge Disposition: HOME SELF-CARE
== END 2024-08-12 10:58 | disposition home or self-care (01) | DRG 885 ==
LOC: EC 15:04 → 3MHU 23:53
PROVIDERS: ADMIT Psychiatry & Neurology Psychiatry; ATTEND Psychiatry & Neurology Psychiatry
DX: F31.60 Bipolar disorder, current episode mixed, unspecified (principal); R45.851 Suicidal ideations; F11.11 Opioid abuse, in remission; F10.10 Alcohol abuse, uncomplicated; F17.210 Nicotine dependence, cigarettes, uncomplicated; F12.90 Cannabis use, unspecified, uncomplicated; C67.9 Malignant neoplasm of bladder, unspecified; I10 Essential (primary) hypertension; G40.909 Epilepsy, unspecified, not intractable, without status epilepticus; F20.9 Schizophrenia, unspecified; F41.9 Anxiety disorder, unspecified; F90.9 Attention-deficit hyperactivity disorder, unspecified type; J44.9 Chronic obstructive pulmonary disease, unspecified; G89.29 Other chronic pain; F43.10 Post-traumatic stress disorder, unspecified; Z88.8 Allergy status to other drugs, medicaments and biological substances; Z88.6 Allergy status to analgesic agent; Z88.0 Allergy status to penicillin; Z88.9 Allergy status to unspecified drugs, medicaments and biological substances; Z82.49 Family history of ischemic heart disease and other diseases of the circulatory system; Z56.0 Unemployment, unspecified; Z79.899 Other long term (current) drug therapy
CPT/HCPCS: 80053; 80061; 80178; 80306; 81001; 82075; 83036; 84443; 85025; 87635; 93005; 96372; 99285

== ENCOUNTER 2024-08-13 23:27 | Emergency (ER) | payer MEDICARE, MEDICAID ==
[2024-08-13 23:36] VITALS: RESP 20
[2024-08-14] MEDS: LORazepam 1 MG TAB PO STA (00:11)
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
[2024-08-14] MEDS: KETOROLAC 15 MG/ML 1 ML VIAL IM STA (00:12)
[2024-08-14] MEDS: HYDROcodone/APAP 5-325MG 1 EACH TAB PO STA (00:12)
[2024-08-14 00:13] VITALS: BP 152/98; PULSE 107; TEMP 99.5
== END 2024-08-14 00:35 | disposition home or self-care (01) ==
LOC: EC 23:27
DX: M54.50 Low back pain, unspecified (principal); G47.00 Insomnia, unspecified; F17.200 Nicotine dependence, unspecified, uncomplicated; Z88.0 Allergy status to penicillin; Z88.6 Allergy status to analgesic agent; Z91.013 Allergy to seafood; Z88.1 Allergy status to other antibiotic agents
CPT/HCPCS: 96372; 99283; 99406

== ENCOUNTER 2024-08-15 02:32 | Emergency (ER) | payer MEDICARE, OTHER ==
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
[2024-08-15] MEDS: HYDROcodone/APAP 7.5-325MG 1 EACH TAB PO ONE (03:27)
[2024-08-15] MEDS: KETOROLAC 15 MG/ML 1 ML VIAL IM STA (03:28)
[2024-08-15] MEDS: LORazepam 2 MG/ML INJ IM STA (03:31)
[2024-08-15 03:56] VITALS: BP 104/62; PULSE 110; RESP 16; TEMP 97.8
== END 2024-08-15 03:54 | disposition home or self-care (01) ==
LOC: EC 02:32
DX: M54.9 Dorsalgia, unspecified (principal); F41.9 Anxiety disorder, unspecified; G89.29 Other chronic pain; F17.200 Nicotine dependence, unspecified, uncomplicated; Z88.6 Allergy status to analgesic agent; Z88.0 Allergy status to penicillin; Z88.1 Allergy status to other antibiotic agents; Z91.013 Allergy to seafood
CPT/HCPCS: 99283; 96372 ×2; J2060; J1885

== ENCOUNTER 2024-08-16 04:20 | Emergency (ER) | payer MEDICARE, OTHER ==
[2024-08-16] MEDS: oxyCODONE-APAP 5-325MG 1 EACH TAB PO STA (07:01)
[2024-08-16] MEDS: KETOROLAC 15 MG/ML 1 ML VIAL IM STA (07:02)
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
[2024-08-16 08:36] VITALS: BP 113/55; PULSE 93; RESP 20; TEMP 98
== END 2024-08-16 08:36 | disposition home or self-care (01) ==
LOC: EC 04:20
DX: G89.29 Other chronic pain (principal); M54.50 Low back pain, unspecified; F17.200 Nicotine dependence, unspecified, uncomplicated; Z88.0 Allergy status to penicillin; Z88.1 Allergy status to other antibiotic agents; Z88.6 Allergy status to analgesic agent; Z91.013 Allergy to seafood
CPT/HCPCS: 99283; 96372; J1885

== ENCOUNTER 2024-08-24 05:29 | Emergency (ER) | payer MEDICARE, OTHER ==
[2024-08-24 05:43] VITALS: BP 103/65; PULSE 88; RESP 18; TEMP 97.9
[2024-08-24] MEDS: HYDROcodone/APAP 5-325MG 1 EACH TAB PO STA (06:11)
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
[2024-08-24] MEDS: ACET/COD 300 MG/30 MG STARTER PACK 6 TAB BTL PO STA (06:20)
== END 2024-08-24 06:22 | disposition home or self-care (01) ==
LOC: EC 05:29
DX: M54.50 Low back pain, unspecified (principal); F17.200 Nicotine dependence, unspecified, uncomplicated; Z91.013 Allergy to seafood; Z88.0 Allergy status to penicillin; Z88.1 Allergy status to other antibiotic agents; Z88.6 Allergy status to analgesic agent
CPT/HCPCS: 99283

== ENCOUNTER 2024-08-25 01:12 | Emergency (ER) | payer MEDICARE, OTHER ==
[2024-08-25 01:20] VITALS: TEMP 98.6
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
[2024-08-25] MEDS: LORazepam 2 MG/ML INJ IM STA (01:52)
[2024-08-25 02:01] VITALS: BP 133/79; PULSE 101; RESP 20
== END 2024-08-25 01:54 | disposition home or self-care (01) ==
LOC: EC 01:12
DX: G47.00 Insomnia, unspecified (principal); F17.200 Nicotine dependence, unspecified, uncomplicated; Z88.0 Allergy status to penicillin; Z88.1 Allergy status to other antibiotic agents; Z88.6 Allergy status to analgesic agent; Z91.013 Allergy to seafood
CPT/HCPCS: 99283; 96372; J2060

== ENCOUNTER 2024-08-26 03:06 | Emergency (ER) | payer MEDICARE, OTHER ==
[2024-08-26 03:13] VITALS: BP 119/85; PULSE 82; RESP 18; TEMP 97.5
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
[2024-08-26] MEDS: ACET/COD 300 MG/30 MG STARTER PACK 6 TAB BTL PO STA (03:19)
== END 2024-08-26 03:25 | disposition home or self-care (01) ==
LOC: EC 03:06
DX: G89.29 Other chronic pain (principal); M54.9 Dorsalgia, unspecified; F17.200 Nicotine dependence, unspecified, uncomplicated; Z88.0 Allergy status to penicillin; Z88.1 Allergy status to other antibiotic agents; Z88.6 Allergy status to analgesic agent; Z91.013 Allergy to seafood
CPT/HCPCS: 99283

== ENCOUNTER 2024-08-27 23:30 | Emergency (ER) | payer MEDICARE, OTHER ==
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
[2024-08-27 23:40] VITALS: BP 134/86; PULSE 96; RESP 18; TEMP 98.3
[2024-08-27] MEDS: ACET/COD 300 MG/30 MG STARTER PACK 6 TAB BTL PO STA (23:41)
== END 2024-08-27 23:43 | disposition home or self-care (01) ==
LOC: EC 23:30
DX: M54.50 Low back pain, unspecified (principal); F17.200 Nicotine dependence, unspecified, uncomplicated; Z88.0 Allergy status to penicillin; Z88.6 Allergy status to analgesic agent; Z91.013 Allergy to seafood; Z88.8 Allergy status to other drugs, medicaments and biological substances
CPT/HCPCS: 99282

== ENCOUNTER 2024-09-06 01:54 | Emergency (ER) | payer MEDICAID, MEDICARE ==
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
[2024-09-06] MEDS: ACET/COD 300 MG/30 MG STARTER PACK 6 TAB BTL PO STA (04:07)
[2024-09-06] MEDS: KETOROLAC 15 MG/ML 1 ML VIAL IM STA (04:07)
[2024-09-06 04:11] VITALS: BP 115/77; PULSE 65; RESP 18; TEMP 98.4
== END 2024-09-06 04:12 | disposition home or self-care (01) ==
LOC: EC 01:54
DX: G89.29 Other chronic pain (principal); M54.50 Low back pain, unspecified; F17.200 Nicotine dependence, unspecified, uncomplicated; Z91.013 Allergy to seafood; Z88.0 Allergy status to penicillin; Z88.1 Allergy status to other antibiotic agents; Z88.6 Allergy status to analgesic agent
CPT/HCPCS: 99283; 96372; J1885

== ENCOUNTER 2024-11-16 23:29 | Emergency (ER) | payer MEDICARE, OTHER ==
[2024-11-16 23:48] VITALS: RESP 18; TEMP 98
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
[2024-11-17] MEDS: KETOROLAC 15 MG/ML 1 ML VIAL IM STA (00:49)
[2024-11-17] MEDS: MORPHINE SULFATE 4 MG/ML SYRINGE IM STA (00:50)
[2024-11-17] MEDS: ACET/COD 300 MG/30 MG STARTER PACK 6 TAB BTL PO STA (00:51)
[2024-11-17 00:55] VITALS: BP 127/82; PULSE 99
== END 2024-11-17 00:55 | disposition home or self-care (01) ==
LOC: EC 23:29
DX: G89.29 Other chronic pain (principal); M54.9 Dorsalgia, unspecified; F17.200 Nicotine dependence, unspecified, uncomplicated; Z91.013 Allergy to seafood; Z88.0 Allergy status to penicillin; Z88.1 Allergy status to other antibiotic agents; Z88.6 Allergy status to analgesic agent
CPT/HCPCS: 99283; 96372 ×2; J2270; J1885

== ENCOUNTER 2024-11-19 01:59 | Emergency (ER) | payer MEDICARE, OTHER ==
[2024-11-19 02:15] VITALS: BP 141/83; PULSE 103; RESP 18; TEMP 97.8
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
[2024-11-19] MEDS: KETOROLAC 15 MG/ML 1 ML VIAL IM STA (02:39)
[2024-11-19] MEDS: LORazepam 1 MG TAB PO STA (02:41)
== END 2024-11-19 03:06 | disposition home or self-care (01) ==
LOC: EC 01:59
DX: F41.9 Anxiety disorder, unspecified (principal); F17.200 Nicotine dependence, unspecified, uncomplicated; Z88.6 Allergy status to analgesic agent; Z88.0 Allergy status to penicillin; Z88.1 Allergy status to other antibiotic agents; Z91.013 Allergy to seafood
CPT/HCPCS: 99283; 96372; J1885

== ENCOUNTER 2024-11-21 00:12 | Emergency (ER) | payer MEDICARE ==
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
[2024-11-21 00:18] VITALS: BP 131/96; PULSE 89; RESP 17; TEMP 97.6
[2024-11-21] MEDS: LORazepam 1 MG TAB PO STA (00:24)
== END 2024-11-21 00:30 | disposition home or self-care (01) ==
LOC: EC 00:12
DX: F41.9 Anxiety disorder, unspecified (principal); C67.9 Malignant neoplasm of bladder, unspecified; F17.200 Nicotine dependence, unspecified, uncomplicated; Z88.0 Allergy status to penicillin; Z88.1 Allergy status to other antibiotic agents; Z88.6 Allergy status to analgesic agent; Z91.013 Allergy to seafood
CPT/HCPCS: 99283

== ENCOUNTER 2024-11-30 01:17 | Emergency (ER) | payer MEDICARE ==
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
[2024-11-30 01:29] VITALS: BP 159/105; PULSE 97; RESP 18; TEMP 97.7
[2024-11-30] MEDS: IBUPROFEN 600 MG TAB PO STA (02:19)
[2024-11-30] MEDS: ACET/COD 300 MG/30 MG STARTER PACK 6 TAB BTL PO STA (02:20)
[2024-11-30] MEDS: MORPHINE SULFATE 4 MG/ML SYRINGE IM STA (02:20)
== END 2024-11-30 02:25 | disposition home or self-care (01) ==
LOC: EC 01:17
DX: M54.6 Pain in thoracic spine (principal); F17.200 Nicotine dependence, unspecified, uncomplicated; Z88.1 Allergy status to other antibiotic agents; Z88.6 Allergy status to analgesic agent; Z91.013 Allergy to seafood; Z88.0 Allergy status to penicillin
CPT/HCPCS: 99283; 96372; J2270

== ENCOUNTER 2024-12-06 22:07 | Emergency (ER) | payer MEDICARE ==
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
[2024-12-06] MEDS: methylPREDNISolone SOD SUCCI 125 MG/2 ML VIAL IM ONE (22:33)
[2024-12-06] MEDS: LIDOCAINE 4% PATCH TOPICAL ONE (22:33)
[2024-12-06] MEDS: ACETAMINOPHEN TAB 325 MG TAB PO STA (23:36)
[2024-12-06 23:38] VITALS: BP 137/89; PULSE 100; RESP 20; TEMP 98
== END 2024-12-06 23:37 | disposition home or self-care (01) ==
LOC: EC 22:07
DX: G89.29 Other chronic pain (principal); M54.32 Sciatica, left side; F17.200 Nicotine dependence, unspecified, uncomplicated; Z91.013 Allergy to seafood; Z88.0 Allergy status to penicillin; Z88.1 Allergy status to other antibiotic agents; Z88.6 Allergy status to analgesic agent
CPT/HCPCS: 99283; 96372; J2919

== ENCOUNTER 2024-12-07 00:50 | Emergency (ER) | payer MEDICARE ==
[2024-12-07 00:57] VITALS: BP 100/75; PULSE 101; RESP 18; TEMP 97.5
[2024-12-07 01:02] LABS: Glucose,Whole Blood 138 mg/dL (70-110)
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
== END 2024-12-07 01:06 | disposition home or self-care (01) ==
LOC: EC 00:50
DX: G89.29 Other chronic pain (principal); M54.9 Dorsalgia, unspecified; F17.200 Nicotine dependence, unspecified, uncomplicated; Z88.0 Allergy status to penicillin; Z88.1 Allergy status to other antibiotic agents; Z88.6 Allergy status to analgesic agent; Z91.013 Allergy to seafood
CPT/HCPCS: 36415; 99284

== ENCOUNTER 2024-12-21 22:32 | Emergency (ER) | payer MEDICARE ==
[2024-12-21 22:42] VITALS: BP 110/80; PULSE 107; RESP 20; TEMP 97.5
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
[2024-12-21] MEDS: MORPHINE SULFATE 4 MG/ML SYRINGE IM STA (23:51)
== END 2024-12-22 00:13 | disposition home or self-care (01) ==
LOC: EC 22:32
DX: M54.30 Sciatica, unspecified side (principal); Z85.51 Personal history of malignant neoplasm of bladder; F17.200 Nicotine dependence, unspecified, uncomplicated; Z88.0 Allergy status to penicillin; Z88.1 Allergy status to other antibiotic agents; Z88.6 Allergy status to analgesic agent; Z91.013 Allergy to seafood
CPT/HCPCS: 99283; 96372; J2270

== ENCOUNTER 2024-12-22 21:42 | Emergency (ER) | payer MEDICARE, OTHER ==
[2024-12-22 21:50] VITALS: BP 122/80; PULSE 94; RESP 18; TEMP 97.8
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
[2024-12-22] MEDS: ACET/COD 300 MG/30 MG STARTER PACK 6 TAB BTL PO STA (22:21)
[2024-12-22] MEDS: KETOROLAC 15 MG/ML 1 ML VIAL IM STA (22:26)
== END 2024-12-22 22:27 | disposition home or self-care (01) ==
LOC: EC 21:42
DX: M54.59 Other low back pain (principal); M54.6 Pain in thoracic spine; F17.200 Nicotine dependence, unspecified, uncomplicated; Z88.0 Allergy status to penicillin; Z88.1 Allergy status to other antibiotic agents; Z88.6 Allergy status to analgesic agent; Z91.013 Allergy to seafood
CPT/HCPCS: 99283; 96372; J1885

== ENCOUNTER 2024-12-24 00:08 | Emergency (ER) | payer MEDICARE, OTHER ==
[2024-12-24 00:20] VITALS: RESP 18
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
[2024-12-24] MEDS: KETOROLAC 15 MG/ML 1 ML VIAL IM STA (00:37)
[2024-12-24] MEDS: DEXAMETHASONE SOD PHOSPHATE 10 MG/ML 1 ML VIAL IM STA (00:38)
[2024-12-24] MEDS: LIDOCAINE 4% PATCH TOPICAL ONE (00:38)
[2024-12-24 01:31] VITALS: BP 119/84; PULSE 87; TEMP 97.9
== END 2024-12-24 01:31 | disposition home or self-care (01) ==
LOC: EC 00:08
DX: M54.16 Radiculopathy, lumbar region (principal); F17.200 Nicotine dependence, unspecified, uncomplicated; Z88.0 Allergy status to penicillin; Z88.1 Allergy status to other antibiotic agents; Z88.6 Allergy status to analgesic agent; Z91.013 Allergy to seafood
CPT/HCPCS: 96372; 99283

== ENCOUNTER 2024-12-27 20:44 | Emergency (ER) | payer MEDICARE, OTHER ==
[2024-12-27 20:48] VITALS: TEMP 97.6
--- NOTE | 2024-12-27 21:11 | XR ---
EXAMINATION TYPE: XR foot complete LT DATE OF EXAM: 12/27/2024 9:05 PM COMPARISON: None. CLINICAL INDICATION: Male, 59 years old with history of Left foot injury; PHH, pain TECHNIQUE: XR foot complete LT examined in the AP, oblique, and lateral projections. FINDINGS: No evidence of any acute osseous pathology. Multifocal degeneration changes throughout the joints of the foot with osteophyte formation and joint space narrowing. Calcaneal plantar spurring is presen t. Lateral angulation of the first digit metatarsophalangeal joint. IMPRESSION: No evidence of acute fracture. Mild/moderate degeneration changes throughout the joints of the foot. Hallux valgus. [facility], , 12/27/2024 9:09 PM
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
[2024-12-27 21:48] VITALS: BP 126/80; PULSE 86; RESP 18
[2024-12-27] MEDS: HYDROmorphone 1 MG/ML 1 ML SYRINGE IM STA (21:50)
[2024-12-27] MEDS: ACET/COD 300 MG/30 MG STARTER PACK 6 TAB BTL PO STA (21:51)
== END 2024-12-27 21:55 | disposition home or self-care (01) ==
LOC: EC 20:44
DX: S90.32XA Contusion of left foot, initial encounter (principal); F17.200 Nicotine dependence, unspecified, uncomplicated; Z88.0 Allergy status to penicillin; Z88.1 Allergy status to other antibiotic agents; Z88.6 Allergy status to analgesic agent; Z91.013 Allergy to seafood; X58.XXXA Exposure to other specified factors, initial encounter
CPT/HCPCS: 73630; 99283; 96372; J1171

== ENCOUNTER 2024-12-28 21:10 | Emergency (ER) | payer MEDICARE, OTHER ==
[2024-12-28] MEDS: HYDROmorphone 1 MG/ML 1 ML SYRINGE IM STA (21:58)
--- NOTE | 2024-12-28 22:13 | XR ---
EXAMINATION TYPE: XR foot complete LT DATE OF EXAM: 12/28/2024 9:57 PM INDICATION: Patient age:Male; 59 years old; Reason for study: pain; PHH. pain COMPARISON: Left foot radiograph 12/27/2024 TECHNIQUE: The left foot was examined in the AP, oblique, and lateral projections. FINDINGS: No acute fracture or dislocation. No evidence of soft tissue swelling. No osseous erosions. Multifoc al degenerative changes throughout the joints of the foot with osteophyte formation and joint space n arrowing. Similar subluxation laterally of the second and third digits at the MTP joints. Hallux valg us deformity first digit. Small plantar calcaneal enthesophyte. No radiopaque foreign body. IMPRESSION: 1. No evidence of acute fracture. 2. Hallux valgus deformity. [facility], , 12/28/2024 10:11 PM
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
[2024-12-28] MEDS: LORazepam 1 MG TAB PO STA (22:31)
[2024-12-28 22:37] VITALS: BP 113/72; PULSE 94; RESP 16; TEMP 97.6
== END 2024-12-28 22:34 | disposition home or self-care (01) ==
LOC: EC 21:10
DX: S90.32XA Contusion of left foot, initial encounter (principal); F17.200 Nicotine dependence, unspecified, uncomplicated; Z88.0 Allergy status to penicillin; Z91.013 Allergy to seafood; Z88.6 Allergy status to analgesic agent; Z88.1 Allergy status to other antibiotic agents; Z76.0 Encounter for issue of repeat prescription; X58.XXXA Exposure to other specified factors, initial encounter
CPT/HCPCS: 73630; 99283; 96372; J1171

== ENCOUNTER 2024-12-29 17:39 | Emergency (ER) | payer MEDICARE, OTHER ==
[2024-12-29 17:52] VITALS: BP 116/85; PULSE 90; RESP 20; TEMP 98.3
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
[2024-12-29] MEDS: KETOROLAC 15 MG/ML 1 ML VIAL IM STA (18:50)
== END 2024-12-29 18:52 | disposition home or self-care (01) ==
LOC: EC 17:39
DX: S90.112A Contusion of left great toe without damage to nail, initial encounter (principal); F17.200 Nicotine dependence, unspecified, uncomplicated; Z88.0 Allergy status to penicillin; Z88.1 Allergy status to other antibiotic agents; Z88.6 Allergy status to analgesic agent; Z91.013 Allergy to seafood; W22.8XXA Striking against or struck by other objects, initial encounter
CPT/HCPCS: 99283; 96372; J1885

== ENCOUNTER 2024-12-31 03:10 | Emergency (ER) | payer MEDICARE, OTHER ==
[2024-12-31 03:20] VITALS: BP 122/79; PULSE 99; RESP 20; TEMP 97.7
[2024-12-31] MEDS: HYDROcodone/APAP 5-325MG 1 EACH TAB PO STA (03:22)
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
--- NOTE | 2024-12-31 05:29 | XR ---
EXAM: XR Left Foot Complete, 3 or More Views CLINICAL HISTORY: ITS.REASON XR Reason: pain TECHNIQUE: Frontal, lateral and oblique views of the left foot. COMPARISON: No relevant prior studies available. FINDINGS: Bones/joints: Hallux valgus deformity with metatarsus primus varus. Degenerative changes are seen within the midfoot and first ray. Plantar calcaneal enthesophyte. Lucency is visualized within the proximal phalanx of the first digit. No dislocation. Soft tissues: Unremarkable. No radiopaque foreign body. IMPRESSION: Findings concerning for a proximal phalanx fracture of the first toe.
== END 2024-12-31 03:37 | disposition home or self-care (01) ==
LOC: EC 03:10
DX: S90.32XA Contusion of left foot, initial encounter (principal); S92.912A Unspecified fracture of left toe(s), initial encounter for closed fracture; F17.200 Nicotine dependence, unspecified, uncomplicated; Z91.013 Allergy to seafood; Z88.6 Allergy status to analgesic agent; Z88.0 Allergy status to penicillin; Z88.1 Allergy status to other antibiotic agents; W20.8XXA Other cause of strike by thrown, projected or falling object, initial encounter
CPT/HCPCS: 99283

== ENCOUNTER 2024-12-31 19:30 | Emergency (ER) | payer MEDICARE, OTHER ==
[2024-12-31 19:34] VITALS: BP 125/81; PULSE 70; RESP 17; TEMP 98
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
[2024-12-31] MEDS: KETOROLAC 15 MG/ML 1 ML VIAL IM STA (19:53)
== END 2024-12-31 20:09 | disposition home or self-care (01) ==
LOC: EC 19:30
DX: S90.32XA Contusion of left foot, initial encounter (principal); S92.912A Unspecified fracture of left toe(s), initial encounter for closed fracture; F17.200 Nicotine dependence, unspecified, uncomplicated; Z91.013 Allergy to seafood; Z88.6 Allergy status to analgesic agent; Z88.0 Allergy status to penicillin; Z88.1 Allergy status to other antibiotic agents; W20.8XXA Other cause of strike by thrown, projected or falling object, initial encounter
CPT/HCPCS: 99284; 96372; J1885

== ENCOUNTER 2025-01-03 19:12 | Emergency (ER) | payer MEDICARE, OTHER ==
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
[2025-01-03 19:34] VITALS: TEMP 98.1
[2025-01-03] MEDS: HYDROmorphone 1 MG/ML 1 ML SYRINGE IM STA (20:15)
--- NOTE | 2025-01-03 20:39 | XR ---
EXAMINATION TYPE: XR KUB portable DATE OF EXAM: 01/03/2025 8:25 PM COMPARISON: Previous abdominal radiograph 12/17/2022. CLINICAL INDICATION: Male, 59 years old with history of pain; PHH, pain TECHNIQUE: One radiographic view of the abdomen was obtained. FINDINGS: Nonobstructive bowel gas pattern. Scattered air-fluid levels which are nonspecific but can be associated with enteritis or colitis. Scoliotic curvature of the thoracic lumbar spine. No evidenc e of free air. IMPRESSION: Nondistended bowel gas pattern. Nonspecific scattered air-fluid levels which can be associated with e nteritis or ileus. [facility], , 01/03/2025 8:37 PM
[2025-01-03] MEDS: ACET/COD 300 MG/30 MG STARTER PACK 6 TAB BTL PO STA (21:21)
[2025-01-03 21:27] VITALS: BP 149/97; PULSE 99; RESP 20
== END 2025-01-03 21:29 | disposition home or self-care (01) ==
LOC: EC 19:12
DX: G89.29 Other chronic pain (principal); R10.9 Unspecified abdominal pain; F17.200 Nicotine dependence, unspecified, uncomplicated; Z91.013 Allergy to seafood; Z88.0 Allergy status to penicillin; Z88.1 Allergy status to other antibiotic agents; Z88.6 Allergy status to analgesic agent
CPT/HCPCS: 74018; 99284; 96372; J1171

== ENCOUNTER 2025-01-04 05:07 | Emergency (ER) | payer MEDICARE, OTHER ==
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
[2025-01-04] MEDS: hydrOXYzine HCL 50 MG/ML 1 ML VIAL IM STA (06:29)
[2025-01-04 06:34] VITALS: BP 163/85; PULSE 104; RESP 22; TEMP 98.1
== END 2025-01-04 06:36 | disposition home or self-care (01) ==
LOC: EC 05:07
DX: F41.9 Anxiety disorder, unspecified (principal); F17.200 Nicotine dependence, unspecified, uncomplicated; Z88.0 Allergy status to penicillin; Z88.1 Allergy status to other antibiotic agents; Z88.6 Allergy status to analgesic agent; Z91.013 Allergy to seafood
CPT/HCPCS: 99284; 96372; J3410

== ENCOUNTER 2025-01-04 14:39 | Emergency (ER) | payer MEDICARE, OTHER ==
[2025-01-04 15:15] VITALS: RESP 16
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
[2025-01-04] MEDS: KETOROLAC 15 MG/ML 1 ML VIAL IVP STA (15:32)
[2025-01-04 15:38] VITALS: BP 128/75; PULSE 78; TEMP 98
== END 2025-01-04 15:37 | disposition home or self-care (01) ==
LOC: EC 14:39
DX: G89.29 Other chronic pain (principal); R10.9 Unspecified abdominal pain; F17.200 Nicotine dependence, unspecified, uncomplicated; Z91.013 Allergy to seafood; Z88.1 Allergy status to other antibiotic agents; Z88.6 Allergy status to analgesic agent; Z88.0 Allergy status to penicillin
CPT/HCPCS: 99284; 96374; J1885